=== PATIENT | female | born 1960 | race Caucasian/White ===

== ENCOUNTER 2023-02-10 12:29 | Outpatient (OUT) | payer OTHER, SELFPAY ==
--- NOTE | 2023-02-10 12:40 | MR_ITS ---
The [address] [address] Patient Name: JOSELITO CARVER MRN: [id number] date: 1960 Sex: F Assigned Patient Location: MRI Current Patient Location: MRI Accession/Order Number: [id number] Exam Date: 02/10/2023 12:55 Report Date: 02/10/2023 14:16 At the request of: ANALISA FARIA Procedure: MR ankle RT wo con MR ankle RT wo con CLINICAL HISTORY: Right foot and ankle pain. Plantar Fascial Fibromatosis M72.2 COMPARISON: 01/14/2023. 06/02/2022. MR TECHNIQUE: Multiplanar multiecho MRI of the right ankle, hindfoot, midfoot is obtained without IV contrast with axial, sagittal, coronal images. T1 weighted and fluid sensitive images are included. FINDINGS: No fracture or dislocation throughout the [id number]. Talar dome and tibial plafond are intact. Achilles tendon is intact and normal thickness. Ankle flexor, extensor, peroneal tendons are intact. Trace flexor and peroneal tenosynovial fluid. Lateral collateral ligaments and syndesmotic ligaments are intact. Deltoid ligaments are intact. The plantar fascia demonstrates low to intermediate grade partial thickness injury at the calcaneal attachment where there is a small spur. This predominantly involves the medial band. The plantar fascial cc thickness of approximately 7 mm. Slight edema of the adjacent subcutaneous soft tissues. Plantar foot muscles are unremarkable. Sinus Tarsi negative. Minimal degenerative change of the midfoot. Tarsal tunnel is negative. IMPRESSION: Low to intermediate grade chronic partial thickness injury to the right plantar fascial origin especially medially. Associated plantar calcaneal enthesophyte. There is no evidence of plantar fascial fibromatosis. Ankle tendons and ligaments are intact. No fracture. Electronically authenticated by: MERVIN BRONSON Date: 02/10/2023 14:16
== END 2023-02-10 12:30 ==
PROVIDERS: PCP Family Medicine; Visit Provider Physician Assistant
DX: M72.2 Plantar fascial fibromatosis (principal)
CPT/HCPCS: 73721

== ENCOUNTER 2023-02-17 08:36 | Outpatient (OUT) | payer OTHER, SELFPAY ==
--- NOTE | 2023-02-17 08:46 | MM_ITS ---
Patient: JOSELITO CARVER Exam Date: 02/17/2023 : 1960 Gender:F Ordering : DR Tiffanie Duckworth M.D. Admission #: [id number] Family : Order #: [id number] CLICK HERE TO VIEW EXAM RADIOLOGY REPORT PROCEDURE: MM TOMOSYNTHESIS SCREENING BI COMPARISON: MG MAMM SCREEN 3D YOLANDA CAD, 05/09/2021. MG MAMM SCREEN YOLANDA W CAD, 04/12/2019. MG MAMM SCREEN YOLANDA W CAD, 11/24/2017. MG MAMM SCREEN YOLANDA W CAD, 07/01/2009. INDICATIONS: Screening mammogram Z12.31 Calculator Name NCI Breast Cancer Risk Assessment Tool 5 Year Breast Cancer Risk 6.20% Lifetime Breast Cancer Risk 25.30% Personal Breast Cancer No Personal Ovarian Cancer No Treatments None Family Cancers Mother with breast cancer at age 60; Aunt-maternal with breast cancer at age 65; Sister with breast cancer at age 62; Uncle-maternal with breast cancer at age 70; Brother with bladder cancer at age 58; Cousin-maternal with pancreatic cancer at age 70. LOCATION: [facility] BREAST COMPOSITION: Scattered areas fibroglandular density. FINDINGS: DIAGNOSTIC CATEGORY 1--NEGATIVE. RIGHT BREAST: No significant suspicious finding. No significant change has occurred. LEFT BREAST: No significant suspicious finding. No significant change has occurred. RECOMMENDATIONS: ROUTINE MAMMOGRAM AND CLINICAL EVALUATION IN 12 MONTHS. PLEASE NOTE: A NORMAL MAMMOGRAM DOES NOT EXCLUDE THE POSSIBILITY OF BREAST CANCER. A CLINICALLY SUSPICIOUS PALPABLE LUMP SHOULD BE BIOPSIED. Dictated by: Randy Camejo M.D. on 02/17/2023 at 15:05 Approved by: Randy Camejo M.D. on 02/17/2023 at 15:08
== END 2023-02-17 08:37 ==
LOC: MAMMO 08:36
PROVIDERS: PCP Family Medicine; Visit Provider Family Medicine
DX: Z12.31 Encounter for screening mammogram for malignant neoplasm of breast (principal)
CPT/HCPCS: 77063; 77067

== ENCOUNTER 2023-03-11 10:12 | Outpatient (RCR) | payer OTHER, SELFPAY | END 2023-03-18 10:57 | disposition home or self-care (01) | LOC: PT 10:12 | PROVIDERS: PCP Family Medicine; Visit Provider Podiatrist Foot & Ankle Surgery | DX: M24.571 Contracture, right ankle (principal); M72.2 Plantar fascial fibromatosis | CPT/HCPCS: 20561; 97110; 97161 ==

== ENCOUNTER 2023-07-26 09:50 | Outpatient (OUT) | payer OTHER, SELFPAY ==
--- NOTE | 2023-07-26 10:06 | XR_ITS ---
[address] [address] Patient Name: JOSELITO CARVER MRN: [id number] date: 1960 Sex: F Assigned Patient Location: [facility] Current Patient Location: [facility] Accession/Order Number: [id number] Exam Date: 07/26/2023 10:50 Report Date: 07/26/2023 12:01 At the request of: MARISA BRENNAN Procedure: XR DEXA axial skeleton EXAMINATION: XR DEXA axial skeleton HISTORY: Osteoporosis M81.0 COMPARISON: DEXA bone densitometry 05/09/2021 TECHNIQUE: Dual-energy X-ray absorptiometry (DXA) was performed. FINDINGS: SPINE ANALYSIS: Average bone mineral density is 1.061 g/cm2. T-score (standard deviation relative to young adult mean): -1.0 . -10.1% change since prior study. HIP ANALYSIS: Lowest bone mineral density is within the left femoral trochanter, 0.488 g/cm2. T-score (standard deviation relative to young adult mean): -3.2 . +8.4% change since prior study. XR/XR DEXA axial skeleton IMPRESSION: [employer] Classification: Osteoporosis - High Fracture Risk Electronically authenticated by: HOMERO DONALDSON Date: 07/26/2023 12:01
--- OUTSIDE RECORDS SUMMARY | 2023-08-18 00:04 | XMS_ITS | CCD ---
Author Name Unknown Address [address] [place] [address] Organization [facility] Care Team Providers Care Mold Filler Name Role Phone Unavailable Primary Care Provider ANALISA Peck Admitting Unavailable ANALISA FARIA Attending Unavailable JOHNSON, DR TIFFANIE Perez Primary Care Unavailable BIENVENIDO, ANALISA Admitting Unavailable ANALISA FARIA Attending Unavailable JOHNSON, DR TIFFANIE Perez Primary Care Unavailable ANIKA, DR HOMERO Denton Consulting Unavailable BIENVENIDO, ANALISA Consulting Unavailable HAKIM, DR BENNETT Admitting Unavailable HAKIM, DR BENNETT Attending Unavailable JOHNSON, DR TIFFANIE Perez Primary Care Unavailable HALADAY, DR CUNNINGHAM Consulting Unavailable JOHNSON, DR TIFFANIE Perez Admitting Unavailable JOHNSON, DR TIFFANIE Perez Attending Unavailable JOHNSON, DR TIFFANIE Perez Primary Care Unavailable JOHNSON, DR TIFFANIE Perez Consulting Unavailable JOHNSON, DR TIFFANIE Perez Admitting Unavailable JOHNSON, DR TIFFANIE Perez Attending Unavailable JOHNSON, DR TIFFANIE Perez Primary Care Unavailable JOHNSON, DR TIFFANIE Perez Consulting Unavailable GARRISON LEE Attending Unavailable ROSA, GARRISON Attending Unavailable GARRISON LEE Referring Unavailable Unavailable Primary Care Provider UnavailTiffanie Silverio Unavailable Allergies Allergy Classification Reported Allergen(s) Allergy Type Date of Onset Reaction(s) Facility (2 sources) Non-steroidal anti-inflammato ry agent; Translations: [NSAIDS (NON-STEROIDAL ANTI-INFLAMMATO RY DRUG)] Drug Intolerance 09-13-19 Other: See Comments [facility] Work Phone: (2 sources) Non-steroidal anti-inflammato ry agent Drug Intolerance 09-13-19 Other: See Comments [facility] Work Phone: (2 sources) patient allergy list reviewed by nurse or physicia Propensity to adverse reactions 07-23-20 19 Comment:Done [employer] Other (2 sources) Allergies Reconciled Propensity to adverse reactions Unknown [employer] Other Medications Current Medications Medication Drug Class(es) Dates Sig (Normalized) Sig (Original) denosumab (2 sources) RANK Ligand Inhibitor Start: 07-28-2022 Prolia 60MG/ML Prolia( 60MG/ML Subcutaneous ) Active -Hx Entry Subcutaneous for 0 Dr. Gallagher *Pick strength-form from [employer] for eRX* Jun, Active Estradiol (5 sources) Estrogen Start: 08-07-2022 Estrace 0.01% (0.1 mg/ Estrace 0.01% (0.1 mg/, (one half) Gram pv twice weekly # 43, 08/07/2022, Ref. x2. Active vaginal pv twice weekly for 0 *Pick strength-form from [employer] for eRX* Jul, Active Start: 06-09-2018 estradiol (EST RACE) 0.01 % (0.1 mg/gram) vaginal cream Use 1 g vaginally twice a week. 3 06/09/2018 Active Comment on above: Use 1 g vaginally tw ice a week. Lidocaine-Glycerin 2% (2 sources) Start: 06-30-2022 Lidocaine-Glyc karin 2% lidocaine-glycerin 2%, 1 (one) kit as needed # 1, 06/30/2022, Ref. x3. Active mucous membrane as needed for 0 alternative to lidocaine 2% gel...? *Reorder from [employer] for eRx and Interaction Alerts* Jun, Active Completed/Discontinued Medications Medication Drug Class(es) Dates Sig (Normalized) Sig (Original) alendronic acid 70 mg oral tablet (3 sources) Bisphosphonate Start: 07-11-2018 take 1 tablet by mouth every week alendronate (FOSAMAX) 70 mg tablet Take 70 mg by mouth once each week. 4 07/11/2018 Active Comment on above: Take 70 mg by mouth once each week. Ascorbic Acid (3 sources) Vitamin C ascorbic acid (V ITAMIN C ORAL) Take by mouth. 0 Active Comment on above: Take by mouth. atorvastatin 10 mg oral tablet (3 sources) HMG-CoA Reductase Inhibitor Start: 07-19-2018 take 1 tablet by mouth once daily atorvastatin (LIPITOR) 10 mg tablet Take 10 mg by mouth once daily. 2 07/19/2018 Active Comment on above: Take 10 mg by mouth once daily. baclofen 10 mg oral tablet (3 sources) gamma-Aminobutyric Acid-ergic Agonist Start: 07-22-2018 baclofen (LIORESAL) 10 mg tablet Take 10 mg by mouth as needed. 4 07/22/2018 Active Comment on above: Take 10 mg by mouth as needed. caffeine 175 mg oral tablet (3 sources) Central Nervous System Stimulant, Methylxanthine CAFFEINE ORAL Take 175 mg by mouth. 0 Active Comment on above: Take 175 mg by mouth . calcium citrate/vitamin D3 ( CITRACAL + D ORAL) (3 sources) calcium citrate/ vitamin D3 (CITRACAL + D ORAL) Take by mouth. 0 Active Comment on above: Take by mouth. citalopram 40 mg oral tablet (5 sources) Serotonin Reuptake Inhibitor Start: 07-02-2018 take 1 tablet by mouth once daily citalopram (CELEXA) 40 mg tablet Take 40 mg by mouth once daily. 4 07/02/2018 Active Comment on above: Take 40 mg by mouth once daily. cyanocobalamin, vitamin B-12 , (VITAMIN B-12 ORAL) (3 sources) cyanocobalamin, vitamin B-12, (VITAMIN B-12 ORAL) Take by mouth. 0 Active Comment on above: Take by mouth. flaxseed oil (OMEGA 3 ORAL) (3 sources) flaxseed oil (OM EGA 3 ORAL) Take by mouth. 0 Active Comment on above: Take by mouth. glucosamine/chondr spears A sod (OSTEO BI-FLEX ORAL) (3 sources) glucosamine/sandra dr spears A sod (OSTEO BI-FLEX ORAL) Take by mouth. 0 Active Comment on above: Take by mouth. 10 ml lidocaine hydrochloride 10 mg/ml injection (3 sources) Antiarrhythmic, Amide Local Anesthetic Start: 03-03-2023 End: 03-03-2023 lidocaine (PF) 10 mg/mL (1 %) 4 mL injection (XYLOCAINE) Start: 06-09-2022 End: 06-09-2022 lidocaine (PF) 20 mg/mL (2 % ) 4 mL injection (XYLOCAINE) Start: 12-01-2021 End: 12-01-2021 lidocaine (PF) 10 mg/mL (1 % ) 4 mL injection (XYLOCAINE) Magnesium (3 sources) Magnesium 250 mg tab Take 250 mg by mouth. 0 Active Comment on above: Take 250 mg by mouth . meloxicam 15 mg oral tablet (2 sources) Nonsteroidal Anti-inflammatory Drug take 1 tablet by mouth once daily meloxicam (MOBIC) 15 mg tablet Take 15 mg by mouth once daily. 0 Active Comment on above: Take 15 mg by mouth once daily. MULTIVITAMIN ORAL (3 sources) MULTIVITAMIN ORA L Take by mouth. 0 Active Comment on above: Take by mouth. raNITIdine 150 mg oral tablet (3 sources) Histamine-2 Receptor Antagonist Start: 07-02-2018 take 1 tablet by mouth twice daily ranitidine (ZANTAC) 150 mg tablet Take 150 mg by mouth twice daily. 4 07/02/2018 Active Comment on above: Take 150 mg by mouth twice daily. 1 ml triamcinolone acetonide 40 mg/ml injection (3 sources) Corticosteroid Start: 03-03-2023 End: 03-03-2023 triamcinolone acetonide 40 mg injection (KeNALog 40) Start: 06-09-2022 End: 06-09-2022 triamcinolone acetonide 40 m g injection (KeNALog 40) Start: 12-01-2021 End: 12-01-2021 triamcinolone acetonide 40 m g injection (KENALOG 40) Problems Active Problems Problem Classification Problem Date Documented Date Episodic/Chronic Disorders of lipid metabolism (2 sources) Hyperlipidemia; Translations: [Hyperlipidemia, unspecified] Chronic Esophageal disorders (2 sources) Gastroesophageal reflux disease; Translations: [Gastro-esophageal reflux disease without esophagitis] Chronic Mycoses (2 sources) Onychomycosis; Translations: [Tinea unguium] Episodic Osteoarthritis (4 sources) Osteoarthritis of left knee joint; Translations: [Unilateral primary osteoarthritis, left knee] Onset: 06-09-2022 Chronic Osteoporosis (6 sources) Age-related osteoporosis without current pathological fracture; Translations: [Osteoporosis] Onset: 12-02-2022 Chronic Other aftercare (1 source) Other [place] [facility] (current) drug therapy; Translations: [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] Onset: 12-11-2022 Episodic Other connective tissue disease (2 sources) Muscle pain; Translations: [Myalgia, unspecified site] Episodic Spondylosis; intervertebral disc disorders; other back problems (1 source) Cervicalgia Episodic Unclassified (4 sources) Encounter for health counseling related to travel; Translations: [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] Onset: 02-07-2022 Unclassified (1 source) CONTACT W/AND (SUSP) EXPOS COVID-19; Translations: [CONTACT W/AND (SUSP) EXPOS COVID-19] Onset: 02-10-2022 Past or Other Problems Problem Classification Problem Date Documented Da te Episodic/Chronic Other connective tissue disease (4 sources) Pain in right foot; Translations: [PAIN IN RIGHT FOOT] Onset: 06-02-2022 Episodic Other connective tissue disease (1 source) Myalgia, unspecified site; Translations: [MYALGIA UNSPECIFIED SITE] Onset: 05-19-2022 Episodic Other non-traumatic joint disorders (1 source) Pain in right ankle and joints of right foot; Translations: [PAIN IN RIGHT ANKLE] Onset: 06-05-2022 Episodic Unclassified (2 sources) Low back pain with radiation; Translations: [Low back pain with radiation] Results Test Name Value Interpretation Reference Range Facil ity CARMENOVon 03-03-2023 CNOV Office Visit (LOORRM ) JOSELITO CARVER ([id number]) 1960 F Date Time Provider Department 03/03/23 10:15 AM GARRISON LEE During your visit today, we recorded the following information about you: Garrison Lee PA-C 03/03/2023 10:43 AM Signed This document has been created with the use of voice recognition technology. It may contain inaccuracies: misspellings, inaccurate syntax or word sense that escaped review. CHIEF COMPLAINT: Joselito Carver is a 62 year old female who presents today for follow up of left knee. HISTORY OF PRESENT ILLNESS: PAIN EVALUATION 03/01/2023 1105 Pain Level: 5 Pain Location: Knee-Left Description: Aching;Stiffness Frequency: Intermittent Intervention/Comfort measure: Medication;Reposition;Cold HISTORY: Joselito Carver is here for follow up of complaints of recurrent left knee pain with additional symptoms of posterior knee pain. She states she has also been dealing with plantar fasciitis of the right foot and doing physical therapy for that. She remains very active and does long distance [place] races. These activities seem to flareup the knee. She has noticed some swelling in the knee after his activities. No specific injuries. No hip pain or neurologic symptoms. No other musculoskeletal complaints ROS: REVIEW OF SYSTEMS: Constitutional: patient denies any recent fever or significant change in weight Cardiovascular: patient denies any chest pain at rest Respiratory: patient denies any shortness of breath or cough Gastrointestinal: patient denies any current abdominal discomfort Integumentary: patient denies any recent skin changes Musculoskeletal: as noted in the HPI Neurologic: patient denies any peripheral numbness or radiation of pain Endocrine: patient denies a current diagnosis of diabetes Hematologic/Lymphatic: patient denies any easily bleeding, any recent infection and denies any recent observable lymph node enlargement Psychologic: negative for any recent depression or anxiety issues SOCIAL HISTORY: Tobacco Use: Not on file FAMILY HISTORY: No family history on file. ALLERGIES: ALLERGIES Allergen Reactions Nsaids (Non-Steroid* Other: See Comments Cannot take NSAIDS due to kidney disease PAST MEDICAL HISTORY: PAST MEDICAL HISTORY Diagnosis Date Depression Kidney disease SOCIAL HISTORY: Tobacco Use: Not on file EXAMINATION: GENERAL: Appears healthy, well-nourished, no deformities. ORIENTATION: Alert and oriented to person place and time HABITUS: Normal GAIT: Normal, the patient did not have trouble getting onto the exam table. left knee exam: small effusion Neutral Alignment Active lacks a few degrees extension, flexion 120. central patellar tracking/ no patellofemoral crepitation No Pain with patellar compression, positive Pain with palpating medial compartment, no Pain with palpating lateral compartment. stable to varus and valgus stresses. stable Anterior/posterior drawer. negative Mc[place]rays No pain with palpation of pes anserine bursa Calf soft and nontender. Hip exam- negative log roll, preserved ER/IR, no pain with axial loading NV intact L3-S1 with 2+ DP pulse. RADIOGRAPHS: none IMPRESSION: Encounter Diagnosis ICD-10-CM 1. Primary osteoarthritis of left knee M17.12 Large Joint Arthro/Inj: L knee joint Informed Consent Consent Obtained: Written [place] Protocol A moment to CARE was completed. SIGN IN Personnel directly involved with the procedure wore the appropriate PPE. Special Equipment: Yes Patient/Surrogate Stated/Verified: Patient name, Date of , Relevant allergies and Intended procedure TIME OUT Intended patient and procedure match the source document(s). Consent documented and matches the intended procedure. Relevant labs, photos, and/or imaging studies have been reviewed. Correct side/site marked and visible. Medications required for procedure verified. No fire risk assessment and interventions applicable. No implant(s) inserted. 03/03/2023 10:40 AM The procedure site was prepped in the usual sterile fashion. Site: L knee joint Medications: 40 mg triamcinolone acetonide 40 mg/mL Anesthetics: 4 mL lidocaine (PF) 10 mg/mL (1 %) Outcome: Tolerated well, no immediate complications Post-injection instructions were reviewed with the patient and the patient voiced understanding of these instructions. SIGN OUT All instruments, equipment, possible retained foreign bodies accounted for. Plan: Follow-up of left knee with arthritis flare. We performed a cortisone injection in the knee to help her get through her upcoming race. We will follow-up as symptoms dictate. Garrison Lee PA-C Allergies As of Date: 03/03/2023 Noted Allergy Reaction NSAIDS (NON-STEROIDAL ANTI-INFLAM*09/13/2018 14 - Other: See Comments Comments: Cannot take NSAIDS due to kidney diseas (more content not included)... Normal [facility] PTH INTACTon 12-03-2022 PTH, Intact 25 pg/mL Normal 15-65 [facility] Comment on above: Performed By: #### P THINT #### [facility] [address] [place], [place] [address] Dr. Noris Duenas MAGNESIUMon 12-02-2022 Magnesium [Mass/Vol] 2.0 mg/dL Normal 1.8-2.4 [facility] Comment on above: Performed By: #### P HOS, MG, BMP ####[facility] [address] [place], [place] [address]FiDr. Noris Duenas PHOSPHORUSon 12-02-2022 Phosphate [Mass/Vol] 3.5 mg/dL Normal 2.6-4.7 [facility] Comment on above: Performed By: #### P HOS, MG, BMP ####[facility] [address] [place] [address]Dr. Nrois Duenas PROF CHEM 8 (BAS METB)on Anion gap [Moles/Vol] 12.0 mmol/L Normal Th [facility] Comment on above: Performed By: #### P HOS, MG, BMP #### [facility] [address] [place] [address] [address] Noris Duenas Calcium [Mass/Vol] 9.4 mg/dL Normal 8.5-10.1 [facility] Comment on above: Performed By: #### P HOS, MG, BMP #### [facility] [address] [place] [address] [address] Noris Duenas Chloride [Moles/Vol] 103 mmol/L Normal 98-107 [facility] Comment on above: Performed By: #### P HOS, MG, BMP #### [facility] [address] [place] [address] Dr. Noris Duenas CO2 [Moles/Vol] 29.0 mmol/L Normal 21.0-32.0 [facility] Comment on above: Performed By: #### P HOS, MG, BMP #### [facility] [address] [place] [address] Dr. Noris Duenas Creatinine [Mass/Vol] 0.70 mg/dL Normal 0.55-1.02 [facility] Comment on above: Performed By: #### P HOS, MG, BMP #### [facility] [address] [place] [address] Dr. Noris Duenas EGFR-AF BHUTANESE >60 Normal >=60 [facility] Comment on above: Performed By: #### P HOS, MG, BMP #### [facility] [address] [place] [address] Dr. Noris Duenas EGFR-NON AF BHUTANESE >60 Normal >=60 [facility] Comment on above: Performed By: #### P HOS, MG, BMP #### [facility] [address] [place] [address] Dr. Noris Duenas Glucose [Mass/Vol] 95 mg/dL Normal 74-106 [facility] Comment on above: Performed By: #### P HOS, MG, BMP #### [facility] [address] [place] [address] Dr. Noris Duenas Potassium [Moles/Vol] 4.0 mmol/L Normal 3.5-5.1 [facility] Comment on above: Performed By: #### P HOS, MG, BMP #### [facility] [address] [place] [address] Dr. Noris Duenas Sodium [Moles/Vol] 140 mmol/L Normal 136-145 [facility] Comment on above: Performed By: #### P HOS, MG, BMP #### [facility] [address] [place] [address] Dr. Noris Duenas Urea nitrogen [Mass/Vol] 17.0 mg/dL Normal 7.0-18.0 [facility] Comment on above: Performed By: #### P HOS, MG, BMP #### [facility] [address] [place] [address] Dr. Noris Duenas Urea nitrogen/Creatinine [Mass ratio] 24.3 mg/mg Normal [facility] Comment on above: Performed By: #### P HOS, MG, BMP #### [facility] [address] [place] [address] Dr. Noris Duenas VITAMIN D 25 OHon 12-02-2022 VIT D 25-OH 76.9 ng/mL Normal [facility] Comment on above: Performed By: #### V ITAD #### [facility] [address] [place] [address] Dr. Noris Duenas VIT D RANGES SEE BELOW Normal [facility] Comment on above: Result Comment: <20 ng/mL Vit D deficient 20 - <30 ng/mL Vit D insufficient 30 - 100 ng/mL Vit D sufficient >100 ng/mL Potential Toxicity Performed By: #### V ITAD #### [facility] [address] [place] [address] Dr. Noris Duenas CNOVon 06-09-2022 CNOV Office Visit (LOORRM ) JOSELITO CARVER ([id number]) 1960 F Date Time Provider Department 06/09/22 11:30 AM GARRISON LEE During your visit today, we recorded the following information about you: Garrison Lee PA-C 06/09/2022 11:59 AM Signed This document has been created with the use of voice recognition technology. It may contain inaccuracies: misspellings, inaccurate syntax or word sense that escaped review. CHIEF COMPLAINT: Joselito Carver is a 61 year old female who presents today for follow up of left knee pain. HISTORY OF PRESENT ILLNESS: PAIN EVALUATION 06/09/2022 1137 Pain Level: 7 Pain Location: Knee-Left Description: Dull;Aching Duration Amount of Time: 2 Duration Units: Weeks Frequency: Continuous Intervention/Comfort measure: Medication;Cold HISTORY: Joselito Carver is here for follow up of complaints of left knee pain with history of osteoarthritis. She states the injection that she received 6 months ago provided her with significant relief. Just a few weeks ago she was hiking on uneven ground and reaggravated the knee. She is back in hopes to receive a repeat cortisone injection. She is on meloxicam for pain. Denies radiation of symptoms or paresthesias. No other musculoskeletal complaints ROS: REVIEW OF SYMPTOMS: Constitutional: patient denies any recent fever or significant change in weight Gastrointestinal: patient denies any current abdominal discomfort Musculoskeletal: as noted in the HPI Neurologic: patient denies any peripheral numbness or radiation of pain SOCIAL HISTORY: Tobacco Use: Not on file ALLERGIES: ALLERGIES Allergen Reactions - Nsaids (Non-Steroid* Other: See Comments Cannot take NSAIDS due to kidney disease PAST MEDICAL HISTORY: PAST MEDICAL HISTORY Diagnosis Date - Depression - Kidney disease SOCIAL HISTORY: Tobacco Use: Not on file EXAMINATION: GENERAL: Appears healthy, well-nourished, no deformities. ORIENTATION: Alert and oriented to person place and time HABITUS: Normal GAIT: Normal, the patient did not have trouble getting onto the exam table. left knee exam no effusion, no bakers cyst stable with patellar apprehension varus Alignment Active 0 extension, flexion 120. Good patellar tracking/ moderate-severe patella femoral crepitation Pain with palpating medial compartment, Pain with palpating lateral compartment. stable to varus and valgus stresses. Carline is some laxity Laxity to Anterior drawer. No pain with palpation of pes anserine bursa 2+ Dorsalis pedis pulse Calf soft and nontender. Hip exam wnl Intact sensation to light touch distally. RADIOGRAPHS: XR Obtained today and personally reviewed by myself demonstrating interval progression of medial compartment OA and patellofemoral degenerative changes IMPRESSION: Encounter Diagnosis ICD-10-CM 1. Primary osteoarthritis of left knee M17.12 XR KNEE GENERAL 4V AP BOTH/PA BOTH/LAT/MERC LEFT Large Joint Arthro/Inj: L knee joint Informed Consent Consent Obtained: Written [place] Protocol A moment to CARE was completed. SIGN IN Personnel directly involved with the procedure wore the appropriate PPE. Special Equipment: Yes Patient/Surrogate Stated/Verified: Patient name, Date of , Relevant allergies and Intended procedure TIME OUT Intended patient and procedure match the source document(s). Consent documented and matches the intended procedure. Relevant labs, photos, and/or imaging studies have been reviewed. Correct side/site marked and visible. Medications required for procedure verified. No fire risk assessment and interventions applicable. No implant(s) inserted. 06/09/2022 11:58 AM The procedure site was prepped in the usual sterile fashion. Site: L knee joint Medications: 40 mg triamcinolone acetonide 40 mg/mL Anesthetics: 4 mL lidocaine (PF) 20 mg/mL (2 %) Outcome: Tolerated well, no immediate complications Post-injection instructions were reviewed with the patient and the patient voiced understanding of these instructions. SIGN OUT No specimen collected. All instruments, equipment, possible retained foreign bodies accounted for. Post-procedure follow-up management communicated and Plan of Care Visit completed when applicable Plan: Patient presents for follow-up of left knee pain with osteoarthritis being the impression. We reinjected the knee with cortisone today and she tolerated it well. She understands appropriate intervals between injections. She will follow-up as needed Garrison Lee PA-C Referring Provider: SELF [[id number]] Allergies As of Date: 06/09/2022 Noted Allergy Reaction NSAIDS (NON-STEROIDAL ANTI-INFLAM*09/13/2018 14 - Other: See Comments Comments: Cannot take NSAIDS due to kidney disease Date Reviewed: 06/09/2022 Reviewed by: Garrison Lee PA-C - Fully Assessed Reas (more content not included)... Normal [facility] XR KNEE 4V AP/PA BOTH+LAT/ME R LTon 06-09-2022 XR KNEE 4V AP/PA BOTH+LAT/JESS LT * * *Final Report* * * DATE OF EXAM: Jun 09 2022 12:14PM LZX [id number] - XR KNEE 4V AP/PA BOTH+LAT/JESS LT / PROCEDURE REASON: Primary osteoarthritis of left knee * * * * Physician Interpretation * * * * EXAMINATION: XR KNEE 4V AP/PA BOTH+LAT/JESS LT HISTORY: ARTHRITIS LEFT KNEE / PAIN Primary osteoarthritis of left knee . TECHNIQUE: XR KNEE 4V AP/PA BOTH+LAT/JESS LT Laterality: LEFT Number of different views (projections): 4 M: XB_1 COMPARISON: 01/21/2021 RESULT: Mild to moderate medial joint compartment narrowing with tricompartmental osteophytosis. Mild narrowing of the lateral patellofemoral joint compartment. Small knee joint effusion. No other significant abnormality. IMPRESSION: Left knee osteoarthritis as described. Concrete Foreman: MARKEL Transcribe Date/Time: Jun 09 2022 1:58P Dictated by : HEBER CAMACHO MD This examination was interpreted and the report reviewed and electronically signed by: HEBER CAMACHO MD on Jun 09 2022 1:58PM EST [id number] Normal [facility] XR KNEE GENERAL 4V AP BOTH/P A BOTH/LAT/MERC LEFTon 06-09-2022 [facility] ic CBC AUTO DIFFon 05-18-2022 BASO # 0.0 103/ul Normal 0.0-0.1 [facility] Comment on above: Performed By: #### C BC #### [facility] [address] [place] [address] Dr. Noris Duenas Basophils/100 WBC (Bld) 0.8 % Normal 0.2-2.0 [facility] Comment on above: Performed By: #### C BC #### [facility] [address] [place] [address] Dr. Noris Duenas EO # 0.2 103/ul Normal 0.0-0.7 [facility] Comment on above: Performed By: #### C BC #### [facility] [address] [place] [address] Dr. Noris Duenas Eosinophils/100 WBC (Bld) 3.8 % Normal 0.9-7.0 [facility] Comment on above: Performed By: #### C BC #### [facility] [address] [place] [address] Dr. Noris Duenas Erythrocyte distribution wid th (RBC) [Ratio] 13.2 % Normal 11.0-15.0 [facility] Comment on above: Performed By: #### C BC #### [facility] [address] [place] [address] Dr. Noris Duenas Hematocrit (Bld) [Volume fraction] 41.2 % Normal 3 6.0-48.0 [facility] Comment on above: Performed By: #### C BC #### [facility] [address] [place] [address] Dr. Noris Duenas Hemoglobin (Bld) [Mass/Vol] 13.2 g/dL Normal 12.0-16. 0 [facility] Comment on above: Performed By: #### C BC #### [facility] [address] [place] [address] Dr. Noris Duenas IG # 0.01 10e3/ul Normal 0.00-0.03 [facility] Comment on above: Performed By: #### C BC #### [facility] [address] [place] [address] Dr. Noris Duenas IG % 0.2 % Normal 0.0-0.5 [facility] Comment on above: Performed By: #### C BC #### [facility] [address] [place] [address] Dr. Noris Duenas LYMPH # 1.7 103/ul Normal 1.2-3.8 [facility] Comment on above: Performed By: #### C BC #### [facility] [address] [place] [address] Dr. Noris Duenas Lymphocytes/100 WBC (Bld) 35.0 % Normal 20.5-60.0 [facility] Comment on above: Performed By: #### C BC #### [facility] [address] [place] [address] Dr. Noris Duenas MANUAL DIFF REQ NO Normal [facility] Comment on above: Performed By: #### C BC #### [facility] [address] [address] [address] Noris Duenas MCH (RBC) [Entitic mass] 30.3 pg Normal 26.7-34.0 [facility] Comment on above: Performed By: #### C BC #### [facility] [address] [place] [address] Dr. Noris Duenas MCHC (RBC) [Mass/Vol] 32.0 g/dL Normal 29.9-35.2 [facility] Comment on above: Performed By: #### C BC #### [facility] [address] [place] [address] Dr. Noris Duenas MCV (RBC) [Entitic vol] 94.5 fL Normal 81.0-99.0 [facility] Comment on above: Performed By: #### C BC #### [facility] [address] [place] [address] Dr. Noris Duenas MONO # 0.6 103/ul Normal 0.3-0.8 [facility] Comment on above: Performed By: #### C BC #### [facility] [address] [place] [address] Dr. Noris Duenas Monocytes/100 WBC (Bld) 13.4 % Critically high 1.7-12. 0 [facility] Comment on above: Performed By: #### C BC #### [facility] [address] [place] [address] Dr. Noris Duenas NEUT # 2.2 103/ul Normal 1.4-6.5 [facility] Comment on above: Performed By: #### C BC #### [facility] [address] [address] [address] Noris Duenas Neutrophils/100 WBC (Bld) 46.8 % Normal 43.0-75.0 [facility] Comment on above: Performed By: #### C BC #### [facility] [address] [address] [address] Noris Duenas Platelet mean volume (Bld) [ Entitic vol] 10.7 fL Normal 9.5-13.5 [facility] Comment on above: Performed By: #### C BC #### [facility] [address] [place] [address] Dr. Noris Duenas PLT 237 103/ul Normal 150-450 [facility] Comment on above: Performed By: #### C BC #### [facility] [address] [place] [address] Dr. Noris Duenas RBC 4.36 106/ul Normal 4.20-5.40 [facility] Comment on above: Performed By: #### C BC #### [facility] [address] [place] [address] Dr. Noris Duenas WBC 4.8 103/ul Normal 4.0-11.0 [facility] Comment on above: Performed By: #### C BC #### [facility] [address] [place] [address] Dr. Noris Duenas CRPon 05-18-2022 CRP [Mass/Vol] mg/L Normal <=1.0 [facility] Comment on above: Performed By: #### C MP, LIPID, CRP #### [facility] [address] [place] [address] Dr. Noris Duenas LIPID PROFILEon 05-18-2022 CHOL-HDL RATIO NORM SEE BELOW Normal [facility] Comment on above: Result Comment: 3.3 - 4.4 LOW RISK 4.4 - 7.1 AVERAGE RISK 7.1 - 11.0 MODERATE RISK >11.0 HIGH RISK Performed By: #### C MP, LIPID, CRP #### [facility] [address] [address] [address] Noris Duenas Cholesterol [Mass/Vol] 193 mg/dL Normal <=200 Th [facility] Comment on above: Performed By: #### C MP, LIPID, CRP #### [facility] [address] [address] [address] Noris Duenas Cholesterol in HDL [Mass/Vol] 56 mg/dL Normal 40-60 [facility] Comment on above: Performed By: #### C MP, LIPID, CRP #### [facility] [address] [address] [address] Noris Duenas Cholesterol in LDL [Mass/Vol] 105.6 mg/dL Normal [facility] Comment on above: Performed By: #### C MP, LIPID, CRP #### [facility] [address] [address] [address] Noris Duenas Cholesterol.total/Cholestero l in HDL [Mass ratio] 3.4 {ratio} Normal [facility] Comment on above: Performed By: #### C MP, LIPID, CRP #### [facility] [address] [address] [address] Noris Duenas HDL NORMAL > or = 60 mg/dl - LO W CARDIOVASCULAR RISK <40 mg/dl - HIGH CARDIOVASCULAR RISK Normal [facility] Comment on above: Performed By: #### C MP, LIPID, CRP #### [facility] [address] [address] [address] Noris Duenas LDL CALC NORMAL SEE BELOW Normal [facility] Comment on above: Result Comment: <100 mg/dl OPTIMAL 100 - 129 mg/dl NEAR OR ABOVE OPTIMAL 130 - 159 mg/dl BORDERLINE HIGH 160 - 189 mg/dl HIGH >190 mg/dl VERY HIGH Performed By: #### C MP, LIPID, CRP #### [facility] [address] [address] [address] Noris Duenas Triglyceride [Mass/Vol] 157 mg/dL Critically high <=150 [facility] Comment on above: Performed By: #### C MP, LIPID, CRP #### [facility] [address] [address] [address] Noris Duenas VLDL CALC 31.4 mg/dL Normal [facility] Comment on above: Performed By: #### C MP, LIPID, CRP #### [facility] [address] [address] [address] Noris Duenas PROF 14(COMP METB)on 022 Albumin [Mass/Vol] 3.7 g/dL Normal 3.4-5.0 [facility] Comment on above: Performed By: #### C MP, LIPID, CRP #### [facility] [address] [address] [address] Noris Duenas Albumin/Globulin [Mass ratio] 1.0 {ratio} Normal [facility] Comment on above: Performed By: #### C MP, LIPID, CRP #### [facility] [address] [place] [address] Dr. Noris Duenas ALP [Catalytic activity/Vol] 60 U/L Normal 46-116 [facility] Comment on above: Performed By: #### C MP, LIPID, CRP #### [facility] [address] [place] [address] Dr. Noris Duenas ALT [Catalytic activity/Vol] 30 U/L Normal 14-59 [facility] Comment on above: Performed By: #### C MP, LIPID, CRP #### [facility] [address] [place] [address] Dr. Noris Duenas Anion gap [Moles/Vol] 10.4 mmol/L Normal [facility] Comment on above: Performed By: #### C MP, LIPID, CRP #### [facility] [address] [place] [address] Dr. Noris Duenas AST [Catalytic activity/Vol] 23 U/L Normal 15-37 [facility] Comment on above: Performed By: #### C MP, LIPID, CRP #### [facility] [address] [place] [address] Dr. Noris Duenas Bilirubin [Mass/Vol] 0.3 mg/dL Normal 0.2-1.0 [facility] Comment on above: Performed By: #### C MP, LIPID, CRP #### [facility] [address] [address] [address] Noris Duenas Calcium [Mass/Vol] 9.4 mg/dL Normal 8.5-10.1 [facility] Comment on above: Performed By: #### C MP, LIPID, CRP #### [facility] [address] [address] [address] Noris Duenas Chloride [Moles/Vol] 103 mmol/L Normal 98-107 [facility] Comment on above: Performed By: #### C MP, LIPID, CRP #### [facility] [address] [address] [address] Nrois Duenas CO2 [Moles/Vol] 27.7 mmol/L Normal 21.0-32.0 [facility] Comment on above: Performed By: #### C MP, LIPID, CRP #### [facility] [address] [place] [address] Dr. Noris Duenas Creatinine [Mass/Vol] 0.91 mg/dL Normal 0.55-1.02 [facility] Comment on above: Performed By: #### C MP, LIPID, CRP #### [facility] [address] [address] [address] Noris Duenas EGFR-AF BHUTANESE >60 Normal >=60 [facility] Comment on above: Performed By: #### C MP, LIPID, CRP #### [facility] [address] [place] [address] Dr. Noris Duenas EGFR-NON AF BHUTANESE >60 Normal >=60 [facility] Comment on above: Performed By: #### C MP, LIPID, CRP #### [facility] [address] [address] [address] Noris Duenas Globulin (S) [Mass/Vol] 3.7 g/dL Normal [facility] Comment on above: Performed By: #### C MP, LIPID, CRP #### [facility] [address] [address] [address] Noris Duenas Glucose [Mass/Vol] 101 mg/dL Normal 74-106 [facility] Comment on above: Performed By: #### C MP, LIPID, CRP #### [facility] [address] [address] [address] Noris Duenas Potassium [Moles/Vol] 4.1 mmol/L Normal 3.5-5.1 [facility] Comment on above: Performed By: #### C MP, LIPID, CRP #### [facility] [address] [address] [address] Noris Duenas Protein [Mass/Vol] 7.4 g/dL Normal 6.4-8.2 [facility] Comment on above: Performed By: #### C MP, LIPID, CRP #### [facility] [address] [address] [address] Noris Duenas Sodium [Moles/Vol] 137 mmol/L Normal 136-145 [facility] Comment on above: Performed By: #### C MP, LIPID, CRP #### [facility] [address] [address] [address] Noris Duenas Urea nitrogen [Mass/Vol] 19.0 mg/dL Critically high 7.0-18 .0 [facility] Comment on above: Performed By: #### C MP, LIPID, CRP #### [facility] [address] [address] [address] Noris Duenas Urea nitrogen/Creatinine [Mass ratio] 20.9 mg/mg Normal [facility] Comment on above: Performed By: #### C MP, LIPID, CRP #### [facility] [address] [address] [address] Noris Duenas SED RATE [facility] 2021 SED RATE 32 mm/hr Critically high <=30 [facility] Comment on above: Performed By: #### S EDR ####[facility] [id number] [address]Dr. Noris Duenas Covid-19 PCR (CVDTBH)on 01-28 SARS-CoV-2 (COVID-19) RNA EUSEBIO+probe Ql (Unsp spec) Not detected Normal NOT DETECTED [facility] Comment on above: Result Comment: This test is not yet approved or cleared by the [place] FDA. When there are no FDA-approved or cleared tests available, and other criteria are met, FDA can make tests available under an emergency access mechanism called an Emergency Use Authorization (EUA). The EUA for this test is supported by the [place] of Health and Human Service's (HHS's) declaration that circumstances exist to justify the emergency use of in vitro diagnostics for the detection and/or diagnosis of the virus that causes COVID-19. This EUA will remain in effect (meaning this test can be used) for the duration of the COVID-19 declaration justifying emergency of IVDs, unless it is terminated or revoked by FDA (after which the test may no longer be used). When diagnostic testing is negative, the possibility of a false negative should be considered in the context of a patient's recent exposures and the presence of clinical signs and symptoms consistent with SARS-CoV-2. Performed By: #### C [facility] #### [facility] [address] [place] [address] Dr. Noris Duenas No Panel Information [facility] Vital Signs Date Time Vital Sign Value Performing Clinician Facility 07-27-2023 09:30-0500 Body height 160.02 cm Tiffanie Johnson Other [facility] Other 07-27-2023 09:30-0500 Body mass index (BMI) [Ratio] 23.95 kg/m2 Tiff[facility] Johnson Other [facility] Other 07-27-2023 09:30-0500 Body weight 61.33 kg Tiffanie Johnson Other [facility] Other 07-27-2023 09:30-0500 Diastolic blood pressure 77 mm[Hg] Tiffanie Johnson Other [facility] Other 07-27-2023 09:30-0500 Systolic blood pressure 130 mm[Hg] [facility] Johnson Other [facility] Other Encounters Encounter Date Encounter Type Care Provider Facility Start: 08-04-2023 End: 08-04-2023 ambulatory Tiffanie Johnson Other [facility] Other Start: 08-04-2023 Telephone encounter Tiffanie Johnson [facility] Start: 07-27-2023 End: 07-27-2023 ambulatory Tiffanie Johnson Other [facility] Other Start: 07-27-2023 Encounter for genera l adult medical examination without abnormal findings Tiffanie Johnson [facility] Start: 07-27-2023 Periodic preventive med est patient 40-64yrs Tiffanie Johnson [facility] Start: 03-03-2023 End: 03-03-2023 ambulatory GARRISON LEE Facility:[facility] Start: 03-03-2023 End: 03-03-2023 Patient encounter procedure Garrison Lee PA-C Work Phone: Orthopaedics Comment on above: Primary osteoarthrit is of left knee (Primary Dx) Start: 01-14-2023 ambulatory ANALISA FARIA Facilit y:[facility] Start: 12-02-2022 End: 12-03-[address] DONALD ORTIZ Facility:[facility] Start: 06-09-2022 End: 06-09-2022 ambulatory GARRISON LEE Facility:[facility] Start: 06-09-2022 End: 06-09-2022 Patient encounter procedure Garrison Lee PA-C Work Phone: Orthopaedics Comment on above: Primary osteoarthrit is of left knee (Primary Dx) Start: 06-02-2022 End: 06-03-2022 ambulatory ANALISA FARIA Facility:[facility] Start: 05-19-2022 Encounter for genera l adult medical examination without abnormal findings DR TIFFANIE JOHNSON [facility] Start: 05-18-2022 End: 05-19-[address] TIFFANIE JOHNSON Facility:[facility] Start: 05-18-2022 End: 05-19-2022 Encounter for general adult medical examination without abnormal findings DR TIFFANIE JOHNSON Facility:[facility] Start: 02-07-2022 End: 02-08-[address] TIFFANIE JOHNSON Facility:[facility] Start: 12-01-2021 End: 12-01-2021 Patient encounter procedure Garrison Lee PA-C Work Phone: Orthopaedics Comment on above: Primary osteoarthrit is of left knee (Primary Dx) Procedures Date Procedure Procedure Detail Performing Clinician Start: 03-03-2023 Arthrocentesis aspir &/inj major jt/bursa w/o us Garrison Lee PA-C Work Phone: Start: 06-09-2022 Arthrocentesis aspir &/inj major jt/bursa w/o us Garrison Lee PA-C Work Phone: Start: 12-01-2021 Arthrocentesis aspir &/inj major jt/bursa w/o us Garrison Lee PA-C Work Phone: Plan of Treatment Date Care Activity Detail Author Start: 04-30-2023 Influenza vaccination INFLUENZA (#1) [facility] Start: 08-30-2022 [facility] Start: 04-30-2022 Influenza vaccination [facility] Start: 08-30-2021 DEPRESSION ASSESSMENT [facility] Start: 2010 SHINGRIX VACCINE (1 of 2) SHINGRIX V ACCINE (1 of 2) [facility] Start: 2005 COLOGUARD (FIT-DNA) COLOGUARD (FIT-D NA) [facility] Start: 2005 Colonoscopy COLONOSCOPY [facility] Start: 2005 COLORECTAL CANCER SCREENING COLORECTAL CANCER SCREENING [facility] Start: [address] COLONOGRAPHY [facility] Start: 2005 DIABETES SCREEN DIABETES SCREEN [facility] Start: 2005 FECAL OCCULT BLOOD FECAL OCCULT BLOO D [facility] Start: 2005 LIPID SCREEN LIPID SCREEN [facility] Start: 2005 SIGMOIDOSCOPY SIGMOIDOSCOPY [facility] Start: 2000 Mammography MAMMOGRAM [facility] Start: 1990 HPV TESTING HPV TESTING [facility] Start: 1981 PAP TESTING PAP TESTING [facility] Start: 1979 Urine microalbumin profile DTAP,TDAP ,TD (1 - Tdap) [facility] Start: 1978 HEPATITIS C SCREENING HEPATITIS C SC LIANE [facility] Start: 1978 HIV SCREENING HIV SCREENING [facility] Start: 1972 Adult depression scr eening assessment DEPRESSION SCREENING [facility] Start: 1965 COVID-19 VACCINE (1) COVID-19 VACCIN E (1) [facility] Start: 01-10-1961 COVID-19 VACCINE (#1) COVID-19 VACCI NE (#1) [facility] Immunizations Immunization Date Immunization Notes Care Provider Sandy romero 10-10-2020 zoster vaccine, live Tiffanie Johnson Other [facility] Other 07-08-2020 influenza virus vaccine, split virus (incl. purified surface antigen) Tiffanie Johnson Other [facility] Other 07-08-2020 zoster vaccine, live Tiffanie Johnson Other [facility] Other Payers Date Payer Category Payer Private Health [facility] [employer] [facility] [employer] P[facility] [id number] 2015-Present [phone] [address] [place] [address] PPO [id number] 2015 Private Health Insurance [employer] [facility] [employer] PPO [id number] 2015-Present [phone] [address] [place] [address] PPO [id number] 1960 Unknown [id number] 1960 Unknown [id number] 1960 Unknown [id number] 1960 Unknown [id number] 1960 Unknown [id number] [facility] [id number] [address] [facility] [id number] Social History Date Type Detail Facility Tobacco smoking status PRIS Tobacco smoking consumption unknown [facility] Start: 1960 Sex Assigned At Not on file C [facility] Start: 11-21-2021 End: 06-09-2022 Exposure to SARS-CoV-2 (event) Not sure [facility] Sex Assigned At Sex Assigned At Bir [facility] Other Clinical Notes 12-01-2021 to 07-27-2023 Note Date & Type Note Facility 07-27-2023 Evaluation note Encounter Date Diagnosis Assessment Notes Jun, Well adult exam (ICD-10 - Z00.00) We have discussed the necessity of following up with PCP regularly as well as specialists, as needed. Discussed F/U with dentistry and optometry at least yearly. Discussed all preventative measures/ cancer screenings as applicable to this patient. Emphasized the importance of a reduced fat, low carb diet to promote heart health and controlled blood sugars. Reviewed social history and ensured patient is safe within the home today. Pt denies any abuse of alcohol, nicotine, caffeine or recreational drugs. I have ensured patient is of stable mental and physical health today. We have discussed appropriate F/U schedule as well as blood work and vaccinations that apply. All questions answered and patient is sent home pleased, without concerns. Lab order hand written. Jun, Cervical pain (ICD-10 - M54.2) Order for PT handwritten [facility] Other 07-05-2023 NoteHNO ID: [id number] Author: Garrison Lee PA-C Service: ? Author Type: Physician [employer] Type: Progress Notes Filed: 03/03/2023 10:43 AM Note Text: This document has been created with the use of voice recognition technology. It may contain inaccuracies: misspellings, inaccurate syntax or word sense that escaped review. CHIEF COMPLAINT: Joselito Carver is a 62 year old female who presents today for follow up of left knee. HISTORY OF PRESENT ILLNESS: PAIN EVALUATION 03/01/2023 1105 Pain Level: 5 Pain Location: Knee-Left Description: Aching;Stiffness Frequency: Intermittent Intervention/Comfort measure: Medication;Reposition;Cold HISTORY: Joselito Carver is here for follow up of complaints of recurrent left knee pain with additional symptoms of posterior knee pain. She states she has also been dealing with plantar fasciitis of the right foot and doing physical therapy for that. She remains very active and does long distance [place] races. These activities seem to flareup the knee. She has noticed some swelling in the knee after his activities. No specific injuries. No hip pain or neurologic symptoms. No other musculoskeletal complaints ROS: REVIEW OF SYSTEMS: Constitutional: patient denies any recent fever or significant change in weight Cardiovascular: patient denies any chest pain at rest Respiratory: patient denies any shortness of breath or cough Gastrointestinal: patient denies any current abdominal discomfort Integumentary: patient denies any recent skin changes Musculoskeletal: as noted in the HPI Neurologic: patient denies any peripheral numbness or radiation of pain Endocrine: patient denies a current diagnosis of diabetes Hematologic/Lymphatic: patient denies any easily bleeding, any recent infection and denies any recent observable lymph node enlargement Psychologic: negative for any recent depression or anxiety issues SOCIAL HISTORY: Tobacco Use: Not on file FAMILY HISTORY: No family history on file. ALLERGIES: ALLERGIES Allergen Reactions Nsaids (Non-Steroid* Other: See Comments Cannot take NSAIDS due to kidney disease PAST MEDICAL HISTORY: PAST MEDICAL HISTORY Diagnosis Date Depression Kidney disease SOCIAL HISTORY: Tobacco Use: Not on file EXAMINATION: GENERAL: Appears healthy, well-nourished, no deformities. ORIENTATION: Alert and oriented to person place and time HABITUS: Normal GAIT: Normal, the patient did not have trouble getting onto the exam table. left knee exam: small effusion Neutral Alignment Active lacks a few degrees extension, flexion 120. central patellar tracking/ no patellofemoral crepitation No Pain with patellar compression, positive Pain with palpating medial compartment, no Pain with palpating lateral compartment. stable to varus and valgus stresses. stable Anterior/posterior drawer. negative [place] No pain with palpation of pes anserine bursa Calf soft and nontender. Hip exam- negative log roll, preserved ER/IR, no pain with axial loading NV intact L3-S1 with 2+ DP pulse. RADIOGRAPHS: none IMPRESSION: Encounter Diagnosis ICD-10-CM 1. Primary osteoarthritis of left knee M17.12 Large Joint Arthro/Inj: L knee joint Informed Consent Consent Obtained: Written [place] Protocol A moment to CARE was completed. SIGN IN Personnel directly involved with the procedure wore the appropriate PPE. Special Equipment: Yes Patient/Surrogate Stated/Verified: Patient name, Date of , Relevant allergies and Intended procedure TIME OUT Intended patient and procedure match the source document(s). Consent documented and matches the intended procedure. Relevant labs, photos, and/or imaging studies have been reviewed. Correct side/site marked and visible. Medications required for procedure verified. No fire risk assessment and interventions applicable. No implant(s) inserted. 03/03/2023 10:40 AM The procedure site was prepped in the usual sterile fashion. Site: L knee joint Medications: 40 mg triamcinolone acetonide 40 mg/mL Anesthetics: 4 mL lidocaine (PF) 10 mg/mL (1 %) Outcome: Tolerated well, no immediate complications Post-injection instructions were reviewed with the patient and the patient voiced understanding of these instructions. SIGN OUT All instruments, equipment, possible retained foreign bodies accounted for. Plan: Follow-up of left knee with arthritis flare. We performed a cortisone injection in the knee to help her get through her upcoming race. We will follow-up as symptoms dictate. [facility] History of Present illness Narrative* Garrison Lee PA-C - 03/03/2023 10:36 AM EDTAssociated Order(s): Large Joint Arthro/Inj: L knee joint Post-Procedure Diagnose(s): Primary osteoarthritis of left knee Images from the original note were not included. This document has been created with the use of voice recognition technology. It may contain inaccuracies: misspellings, inaccurate syntax or word sense that escaped review. CHIEF COMPLAINT: Joselito Carver is a 62 year old female who presents today for follow up of left knee. HISTORY OF PRESENT ILLNESS: PAIN EVALUATION 03/01/2023 1105 Pain Level: 5 Pain Location: Knee-Left Description: Aching;Stiffness Frequency: Intermittent Intervention/Comfort measure: Medication;Reposition;Cold HISTORY: Joselito Carver is here for follow up of complaints of recurrent left knee pain with additional symptoms of posterior knee pain. She states she has also been dealing with plantar fasciitis of the right foot and doing physical therapy for that. She remains very active and does long distance [place] races. These activities seem to flareup the knee. She has noticed some swelling in the knee after his activities. No specific injuries. No hip pain or neurologic symptoms. No other musculoskeletal complaints ROS: REVIEW OF SYSTEMS: Constitutional: patient denies any recent fever or significant change in weight Cardiovascular: patient denies any chest pain at rest Respiratory: patient denies any shortness of breath or cough Gastrointestinal: patient denies any current abdominal discomfort Integumentary: patient denies any recent skin changes Musculoskeletal: as noted in the HPI Neurologic: patient denies any peripheral numbness or radiation of pain Endocrine: patient denies a current diagnosis of diabetes Hematologic/Lymphatic: patient denies any easily bleeding, any recent infection and denies any recent observable lymph node enlargement Psychologic: negative for any recent depression or anxiety issues SOCIAL HISTORY: Tobacco Use: Not on file FAMILY HISTORY: No family history on file. ALLERGIES: ALLERGIES Allergen Reactions Nsaids (Non-Steroid* Other: See Comments Cannot take NSAIDS due to kidney disease PAST MEDICAL HISTORY: PAST MEDICAL HISTORY Diagnosis Date Depression Kidney disease SOCIAL HISTORY: Tobacco Use: Not on file EXAMINATION: GENERAL: Appears healthy, well-nourished, no deformities. ORIENTATION: Alert and oriented to person place and time HABITUS: Normal GAIT: Normal, the patient did not have trouble getting onto the exam table. left knee exam: small effusion Neutral Alignment Active lacks a few degrees extension, flexion 120. central patellar tracking/ no patellofemoral crepitation No Pain with patellar compression, positive Pain with palpating medial compartment, no Pain with palpating lateral compartment. stable to varus and valgus stresses. stable Anterior/posterior drawer. negative [place] No pain with palpation of pes anserine bursa Calf soft and nontender. Hip exam- negative log roll, preserved ER/IR, no pain with axial loading NV intact L3-S1 with 2+ DP pulse. RADIOGRAPHS: none IMPRESSION: Encounter Diagnosis ICD-10-CM 1. Primary osteoarthritis of left knee M17.12 Large Joint Arthro/Inj: L knee joint Informed Consent Consent Obtained: Written [place] Protocol A moment to CARE was completed. SIGN IN Personnel directly involved with the procedure wore the appropriate PPE. Special Equipment: Yes Patient/Surrogate Stated/Verified: Patient name, Date of , Relevant allergies and Intended procedure TIME OUT Intended patient and procedure match the source document(s). Consent documented and matches the intended procedure. Relevant labs, photos, and/or imaging studies have been reviewed. Correct side/site marked and visible. Medications required for procedure verified. No fire risk assessment and interventions applicable. No implant(s) inserted. 03/03/2023 10:40 AM The procedure site was prepped in the usual sterile fashion. Site: L knee joint Medications: 40 mg triamcinolone acetonide 40 mg/mL Anesthetics: 4 mL lidocaine (PF) 10 mg/mL (1 %) Outcome: Tolerated well, no immediate complications Post-injection instructions were reviewed with the patient and the patient voiced understanding of these instructions. SIGN OUT All instruments, equipment, possible retained foreign bodies accounted for. Plan: Follow-up of left knee with arthritis flare. We performed a cortisone injection in the knee to help her get through her upcoming race. We will follow-up as symptoms dictate. Garrison Lee PA-C documented in [facility]22 NoteHNO ID: [id number] Author: Garrison Lee PA-C Service: ? 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 It may contain inaccuracies: misspellings, inaccurate syntax or word sense that escaped review. CHIEF COMPLAINT: Joselito Carver is a 61 year old female who presents today for follow up of left knee pain. HISTORY OF PRESENT ILLNESS: PAIN EVALUATION 06/09/2022 1137 Pain Level: 7 Pain Location: Knee-Left Description: Dull;Aching Duration Amount of Time: 2 Duration Units: Weeks Frequency: Continuous Intervention/Comfort measure: Medication;Cold HISTORY: Joselito Carver is here for follow up of complaints of left knee pain with history of osteoarthritis. She states the injection that she received 6 months ago provided her with significant relief. Just a few weeks ago she was hiking on uneven ground and reaggravated the knee. She is back in hopes to receive a repeat cortisone injection. She is on meloxicam for pain. Denies radiation of symptoms or paresthesias. No other musculoskeletal complaints ROS: REVIEW OF SYMPTOMS: Constitutional: patient denies any recent fever or significant change in weight Gastrointestinal: patient denies any current abdominal discomfort Musculoskeletal: as noted in the HPI Neurologic: patient denies any peripheral numbness or radiation of pain SOCIAL HISTORY: Tobacco Use: Not on file ALLERGIES: ALLERGIES Allergen Reactions - Nsaids (Non-Steroid* Other: See Comments Cannot take NSAIDS due to kidney disease PAST MEDICAL HISTORY: PAST MEDICAL HISTORY Diagnosis Date - Depression - Kidney disease SOCIAL HISTORY: Tobacco Use: Not on file EXAMINATION: GENERAL: Appears healthy, well-nourished, no deformities. ORIENTATION: Alert and oriented to person place and time HABITUS: Normal GAIT: Normal, the patient did not have trouble getting onto the exam table. left knee exam no effusion, no bakers cyst stable with patellar apprehension varus Alignment Active 0 extension, flexion 120. Good patellar tracking/ moderate-severe patella femoral crepitation Pain with palpating medial compartment, Pain with palpating lateral compartment. stable to varus and valgus stresses. Carline is some laxity Laxity to Anterior drawer. No pain with palpation of pes anserine bursa 2+ Dorsalis pedis pulse Calf soft and nontender. Hip exam wnl Intact sensation to light touch distally. RADIOGRAPHS: XR Obtained today and personally reviewed by myself demonstrating interval progression of medial compartment OA and patellofemoral degenerative changes IMPRESSION: Encounter Diagnosis ICD-10-CM 1. Primary osteoarthritis of left knee M17.12 XR KNEE GENERAL 4V AP BOTH/PA BOTH/LAT/MERC LEFT Large Joint Arthro/Inj: L knee joint Informed Consent Consent Obtained: Written [place] Protocol A moment to CARE was completed. SIGN IN Personnel directly involved with the procedure wore the appropriate PPE. Special Equipment: Yes Patient/Surrogate Stated/Verified: Patient name, Date of , Relevant allergies and Intended procedure TIME OUT Intended patient and procedure match the source document(s). Consent documented and matches the intended procedure. Relevant labs, photos, and/or imaging studies have been reviewed. Correct side/site marked and visible. Medications required for procedure verified. No fire risk assessment and interventions applicable. No implant(s) inserted. 06/09/2022 11:58 AM The procedure site was prepped in the usual sterile fashion. Site: L knee joint Medications: 40 mg triamcinolone acetonide 40 mg/mL Anesthetics: 4 mL lidocaine (PF) 20 mg/mL (2 %) Outcome: Tolerated well, no immediate complications Post-injection instructions were reviewed with the patient and the patient voiced understanding of these instructions. SIGN OUT No specimen collected. All instruments, equipment, possible retained foreign bodies accounted for. Post-procedure follow-up management communicated and Plan of Care Visit completed when applicable Plan: Patient presents for follow-up of left knee pain with osteoarthritis being the impression. We reinjected the knee with cortisone today and she tolerated it well. She understands appropriate intervals between injections. She will follow-up as needed [facility] NoteHNO ID: [id number] Author: Kriss Cornelius RT(R) Service: ? Author Type: Technologist Type: Progress Notes Filed: 06/09/2022 11:29 AM Note Text[facility] History of Present illness Narrative* Garrison Lee PA-C - 06/09/2022 11:50 AM EDTAssociated Order(s): Large Joint Arthro/Inj: L knee joint Post-Procedure Diagnose(s): Primary osteoarthritis of left knee This document has been created with the use of voice recognition technology. It may contain inaccuracies: misspellings, inaccurate syntax or word sense that escaped review. CHIEF COMPLAINT: Joselito Carver is a 61 year old female who presents today for follow up of left knee pain. HISTORY OF PRESENT ILLNESS: PAIN EVALUATION 06/09/2022 1137 Pain Level: 7 Pain Location: Knee-Left Description: Dull;Aching Duration Amount of Time: 2 Duration Units: Weeks Frequency: Continuous Intervention/Comfort measure: Medication;Cold HISTORY: Joselito Carver is here for follow up of complaints of left knee pain with history of osteoarthritis. She states the injection that she received 6 months ago provided her with significant relief. Just a few weeks ago she was hiking on uneven ground and reaggravated the knee. She is back in hopes to receive a repeat cortisone injection. She is on meloxicam for pain. Denies radiation of symptoms or paresthesias. No other musculoskeletal complaints ROS: REVIEW OF SYMPTOMS: Constitutional: patient denies any recent fever or significant change in weight Gastrointestinal: patient denies any current abdominal discomfort Musculoskeletal: as noted in the HPI Neurologic: patient denies any peripheral numbness or radiation of pain SOCIAL HISTORY: Tobacco Use: Not on file ALLERGIES: ALLERGIES Allergen Reactions Nsaids (Non-Steroid* Other: See Comments Cannot take NSAIDS due to kidney disease PAST MEDICAL HISTORY: PAST MEDICAL HISTORY Diagnosis Date Depression Kidney disease SOCIAL HISTORY: Tobacco Use: Not on file EXAMINATION: GENERAL: Appears healthy, well-nourished, no deformities. ORIENTATION: Alert and oriented to person place and time HABITUS: Normal GAIT: Normal, the patient did not have trouble getting onto the exam table. left knee exam no effusion, no bakers cyst stable with patellar apprehension varus Alignment Active 0 extension, flexion 120. Good patellar tracking/ moderate-severe patella femoral crepitation Pain with palpating medial compartment, Pain with palpating lateral compartment. stable to varus and valgus stresses. Carline is some laxity Laxity to Anterior drawer. No pain with palpation of pes anserine bursa 2+ Dorsalis pedis pulse Calf soft and nontender. Hip exam wnl Intact sensation to light touch distally. RADIOGRAPHS: XR Obtained today and personally reviewed by myself demonstrating interval progressionof medial compartment OA and patellofemoral degenerative changes IMPRESSION: Encounter Diagnosis ICD-10-CM 1. Primary osteoarthritis of left knee M17.12 XR KNEE GENERAL 4V AP BOTH/PA BOTH/LAT/MERC LEFT Large Joint Arthro/Inj: L knee joint Informed Consent Consent Obtained: Written [place] Protocol A moment to CARE was completed. SIGN IN Personnel directly involved with the procedure wore the appropriate PPE. Special Equipment: Yes Patient/Surrogate Stated/Verified: Patient name, Date of , Relevant allergies and Intended procedure TIME OUT Intended patient and procedure match the source document(s). Consent documented and matches the intended procedure. Relevant labs, photos, and/or imaging studies have been reviewed. Correct side/site marked and visible. Medications required for procedure verified. No fire risk assessment and interventions applicable. No implant(s) inserted. 06/09/2022 11:58 AM The procedure site was prepped in the usual sterile fashion. Site: L knee joint Medications: 40 mg triamcinolone acetonide 40 mg/mL Anesthetics: 4 mL lidocaine (PF) 20 mg/mL (2 %) Outcome: Tolerated well, no immediate complications Post-injection instructions were reviewed with the patient and the patient voiced understanding of these instructions. SIGN OUT No specimen collected. All instruments, equipment, possible retained foreign bodies accounted for. Post-procedure follow-up management communicated and Plan of Care Visit completed when applicable Plan: Patient presents for follow-up of left knee pain with osteoarthritis being the impression. Wereinjected the knee with cortisone today and she tolerated it well. She understands appropriate intervals between injections. She will follow-up as needed Garrison Lee PA-C documented in this encounterTr[facility]10-04-2022 NotePROCEDURE: XR ANKLE RT MIN 3 VIEWS, XR FOOT RT MIN 3 VIEWS HISTORY: Pain ; right ankle and heel pain for 5 months; no known injury COMPARISON: None. FINDINGS: BONES: Small calcaneal plantar spur. No fracture, acute abnormality, or significant arthropathy. SOFT TISSUES:No visible soft tissue swelling. EFFUSION:None visible. OTHER: Negative. IMPRESSION: 1. Small calcaneal plantar spur of uncertain clinical significance. Otherwise unremarkable right ankle and foot. Electronically authenticated by: HOMERO DONALDSON Date: 2022-06-02 12:[facility]10-04-2022 NotePROCEDURE: XR ANKLE RT MIN 3 VIEWS, XR FOOT RT MIN 3 VIEWS HISTORY: Pain ; right ankle and heel pain for 5 months; no known injury COMPARISON: None. FINDINGS: BONES: Small calcaneal plantar spur. No fracture, acute abnormality, or significant arthropathy. SOFT TISSUES:No visible soft tissue swelling. EFFUSION:None visible. OTHER: Negative. IMPRESSION: 1. Small calcaneal plantar spur of uncertain clinical significance. Otherwise unremarkable right ankle and foot. Electronically authenticated by: HOMERO DONALDSON Date: 2022-06-02 12:[facility]04-04-2022 History of Present illness Narrative* Garrison Lee PA-C - 12/01/2021 12:03 PM EDT Associated Order(s): Large Joint Arthro/Inj: L knee joint Post-Procedure Diagnose(s): Primary osteoarthritis of left knee This document has been created with the use of voice recognition technology. It may contain inaccuracies: misspellings, inaccurate syntax or word sense that escaped review. CHIEF COMPLAINT: Joselito Carver is a 61 year old female who presents today for follow up of left knee pain. HISTORY OF PRESENT ILLNESS: PAIN EVALUATION 12/01/2021 0927 Pain Level: 8 Pain Location: Knee-Left Description: Stiffness;Aching;Sore Duration Amount of Time: 4 Duration Units: Months Frequency: Intermittent Intervention/Comfort measure: Medication HISTORY: Joselito Carver is here for follow up of complaints of left knee pain with history of OA. She states there have been no new injuries or other significant changes in her health since I last sawher. I injected her knee with cortisone in the summer 2020 and she has gotten good benefit up untilrecent. She does endorse some swelling about the knee and the pain is localized to the knee-she reports no sciatica symptoms. She wishes to receive a repeat cortisone injection. No other musculoskeletal complaints ROS: REVIEW OF SYSTEMS: Constitutional: patient denies any recent fever or significant change in weight Cardiovascular: patient denies any chest pain at rest Respiratory: patient denies any shortness of breath or cough Gastrointestinal: patient denies any current abdominal discomfort Integumentary: patient denies any recent skin changes Musculoskeletal: as noted in the HPI Neurologic: patient denies any peripheral numbness or radiation of pain Endocrine: patient denies a current diagnosis of diabetes Hematologic/Lymphatic: patient denies any easily bleeding, any recent infection and denies any recent observable lymph node enlargement Psychologic: negative for any recent depression or anxiety issues SOCIAL HISTORY: Tobacco Use: Not on file FAMILY HISTORY: No family history on file. ALLERGIES: ALLERGIES Allergen Reactions Nsaids (Non-Steroid* Other: See Comments Cannot take NSAIDS due to kidney disease PAST MEDICAL HISTORY: PAST MEDICAL HISTORY Diagnosis Date Depression Kidney disease SOCIAL HISTORY: Tobacco Use: Not on file EXAMINATION: GENERAL: Appears healthy, well-nourished, no deformities. ORIENTATION: Alert and oriented to person place and time HABITUS: Normal GAIT: Normal, the patient did not have trouble getting onto the exam table. Left knee exam Mild effusion, palpable Wong's cyst Neutral alignment Active 1-2 extension, flexion 115 Central patellar tracking with moderate patellofemoral crepitation noted Tenderness to palpation of medial compartment Stable to varus and valgus and anterior posterior drawer Calf soft nontender, neurovascularly intact L3-S1 with 2+ dorsalis pedis pulse RADIOGRAPHS: None today IMPRESSION: Encounter Diagnosis ICD-10-CM 1. Primary osteoarthritis of left knee M17.12 Large Joint Arthro/Inj: L knee joint Informed Consent Consent Obtained: Written [place] Protocol A moment to CARE was completed. SIGN IN Personnel directly involved with the procedure wore the appropriate PPE. Special Equipment: Yes Patient/Surrogate Stated/Verified: Patient name, Date of , Relevant allergies and Intended procedure TIME OUT Intended patient and procedure match the source document(s). Consent documented and matches the intended procedure. Relevant labs, photos, and/or imaging studies have been reviewed. No relevant labs, photos, and/or imaging studies were applicable for review. Correct side/site marked and visible. Medications required for procedure verified. No fire risk assessment and interventions applicable. No implant(s) inserted. 12/01/2021 12:06 PM The procedure site was prepped in the usual sterile fashion. Site: L knee joint Medications: 40 mg triamcinolone acetonide 40 mg/mL Anesthetics: 4 mL lidocaine (PF) 10 mg/mL (1 %) Outcome: Tolerated well, no immediate complications Post-injection instructions were reviewed with the patient and the patient voiced understanding of these instructions. SIGN OUT No specimen collected. All instruments, equipment, possible retained foreign bodies accounted for. Post-procedure follow-up management communicated and Plan of Care Visit completed when applicable Plan: Patient presents for follow-up of left knee injection with cortisone. We proceeded to do a repeat injection today and she tolerated it well. Discussed appropriate intervals between injections. We also discussed the possibility of a lubricant injection which she may consider if she has not noted significant relief from this round of steroid injection. Follow-up as needed. Garrison Lee PA-C documented in this encounterTr[facility] SystemEvaluation note* Diagnosis Primary osteoarthritis of left knee- Primary Primary localized osteoarthrosis, lower leg documented in this encounter [facility] note* Diagnosis Primary osteoarthritis of left knee- Primary Primary localized osteoarthrosis, lower leg documented in this encounter [facility] note* Diagnosis Primary osteoarthritis of left knee- Primary Primary localized osteoarthrosis, lower leg documented in this encounter [facility] noteNo InformationNortExcela Health [facility]ap[facility] Other History general Narrative - Reported* Type Description Date Medical History GERD without esophagitis Medical History Onychomycosis Medical History Low back pain with radiation Medical History Muscular pain Medical History Hyperlipidemia, unspecified Medical History Osteoporosis Medical History Plantar Fasciitis Surgical History Rhinoplasty Surgical History DEXA 10/16 hip - 2.8 Surgical History Tonsillectomy Hospitalization History SEE SURGICAL HX [facility] [employer] Other Reason for referral (narrative)* Diagnostic Procedure Only (Routine) - Closed Specialty Diagnoses / Procedures Referred By Contac t Referred To Contact XR IMAGING Diagnoses Primary osteoarthritis of left knee Procedures XR KNEE GENERAL 4V AP BOTH/PA BOTH/LAT/MERC LEFT RADIOLOGIC EXAM KNEE COMPLETE 4/MORE VIEWS Garrison Lee PA-C [address] [place] [address] Xr Imaging Referral ID Status Reason Start Date Expiration Date V isits Requested Visits Authorized [id number] Closed Auto-Generate d Referral 06/05/2022 07/05/2023 1 1 [facility] Medications Administered Section Inactive Administered Medications - up to 3 most recent administrations Medication Order MAR Action Action Date Dose Rate Site lidocaine (PF) 10 mg/mL (1 %) 4 mL injection (XYLOCAINE) 4 mL, Injection - FOR ORTHO USE ONLY, ONE TIME INJECTION, 1 dose, Starting on Wed12/01/21 at 1206, Until Wed12/01/21 at 1206 Given 12/01/2021 12:06 PM EDT 4 mL triamcinolone acetonide 40 mg injection (KENALOG 40) 40 mg, Injection - FOR ORTHO USE ONLY, ONE TIME INJECTION, 1 dose, Starting on Wed12/01/21 at 1206, Until Wed12/01/21 at 1206 Given 12/01/2021 12:06 PM EDT 40 mg Inactive Administered Medications - up to 3 most recent administrations Medication Order MAR Action Action Date Dose Rate Site lidocaine (PF) 20 mg/mL (2 %) 4 mL injection (XYLOCAINE) 4 mL, Injection - FOR ORTHO USE ONLY, ONE TIME INJECTION, 1 dose, Starting on Wed06/09/22 at 1158, Until Wed06/09/22 at 1158 Given 06/09/2022 11:58 AM EDT 4 mL Knee, Left triamcinolone acetonide 40 mg injection (KeNALog 40) 40 mg, Injection - FOR ORTHO USE ONLY, ONE TIME INJECTION, 1 dose, Starting on Wed06/09/22 at 1158, Until Wed06/09/22 at 1158 Given 06/09/2022 11:58 AM EDT 40 mg Knee, Left Inactive Administered Medications - up to 3 most recent administrations Medication Order MAR Action Action Date Dose Rate Site lidocaine (PF) 10 mg/mL (1 %) 4 mL injection (XYLOCAINE) 4 mL, Injection - FOR ORTHO USE ONLY, ONE TIME INJECTION, 1 dose, Starting on Wed03/03/23 at 1040, Until Wed03/03/23 at 1040 Given 03/03/2023 10:40 AM EDT 4 mL Knee, Left triamcinolone acetonide 40 mg injection (KeNALog 40) 40 mg, Injection - FOR ORTHO USE ONLY, ONE TIME INJECTION, 1 dose, Starting on Wed03/03/23 at 1040, Until Wed03/03/23 at 1040 Given 03/03/2023 10:40 AM EDT 40 mg Knee, Left Summary Purpose Family History No Family History Records FoundNo Family History Records Found Advance Directives No Advanced Directives Records FoundNo Advanced Directives Records Found Additional Source Comments Source Comments (unrecognize d section and content) In the event this informatio n is protected by the Federal Confidentiality of Alcohol and Drug Abuse Patient Records regulations: The Federal rules restrict any use of the information to criminally investigate or prosecute any alcohol or drug abuse patient.[facility] SystemIn the event this information is protected by the Federal Confidentiality of Alcohol and Drug Abuse Patient Records regulations: The Federal rules restrict any use of the information to criminally investigate or prosecute any alcohol or drug abuse patient.[facility] SystemIn the event this information is protected by the Federal Confidentiality of Alcohol and Drug Abuse Patient Records regulations: The Federal rules restrict any use of the information to criminally investigate or prosecute any alcohol or drug abuse patient.[facility] Reason for Visit (unrecogniz ed section and content) labs Reason Comments Established Patient Injections Swelling Reason Comments Established Patient Reason Comments Injections INFORMATION SOURCE (unrecogn ized section and content) DATE CREATED AUTHOR 01/09/2023 [facility] DATE CREATED AUTHOR 'S ORGANIZ ATION 03/03/2023 [facility] FOR RECORDS PERTAINING TO PATIENTS WHO ARE OR HAVE BEEN ENROLLED IN A CHEMICAL DEPENDENCY/SUBSTANCEABUSE PROGRAM, SOME INFORMATION MAY BE OMITTED. This clinical summary was aggregated from multiple sources. Caution should be exercised in using it in the provision of clinical care. This summary normalizes information from multiple sources, and as a consequence, information in this document may materially change the coding, format and clinical context of patient data. In addition, data may be omitted in some cases. CLINICAL DECISIONS SHOULD BE BASED ON THE PRIMARY CLINICAL RECORDS. [facility]. provides no warranty or guarantee of the accuracy or completeness of information in this document.
== END 2023-07-26 09:51 | disposition home or self-care (01) ==
LOC: RAD 09:50
PROVIDERS: PCP Family Medicine; Visit Provider Internal Medicine Rheumatology
DX: M81.0 Age-related osteoporosis without current pathological fracture (principal)
CPT/HCPCS: 77080

== ENCOUNTER 2023-07-27 10:05 | Outpatient (OUT) | payer OTHER, SELFPAY ==
[2023-07-27 12:03] LABS: Alanine Aminotransferase 22 U/L (14-59); Albumin Globulin Ratio 0.9; Albumin Level 3.6 g/dL (3.4-5.0); Alkaline Phosphatase 79 U/L (46-116); Aspartate Amino Transferase 20 U/L (15-37); BUN Creatinine Ratio 20.5; Bilirubin Total 0.3 mg/dL (0.2-1.0); Carbon Dioxide 26.9 mmol/L (21.0-32.0); Chloride 105 mmol/L (98-107); Chol HDL Ratio 3.2; Cholesterol 186 mg/dL (<=200); Estimated GFR (African America >60 (>=60); Estimated GFR (Non-African Ame >60 (>=60); Glucose 91 mg/dL (74-106); HDL Cholesterol 58 mg/dL (40-60); LDL Cholesterol Calculated 107.4 mg/dL; Potassium 3.9 mmol/L (3.5-5.1); Sodium 141 mmol/L (136-145); Total Protein 7.6 g/dL (6.4-8.2); Triglycerides 103 mg/dL (<=150); Uric Acid 3.5 mg/dL (2.6-6.0); VLDL CHOLESTEROL 20.6 mg/dL
== END 2023-07-27 10:06 | disposition home or self-care (01) ==
LOC: LAB 10:08
PROVIDERS: PCP Family Medicine; Visit Provider Family Medicine
DX: Z00.00 Encounter for general adult medical examination without abnormal findings (principal)
CPT/HCPCS: 36415; 80053; 80061; 84100; 84550

== ENCOUNTER 2023-07-28 12:22 | Outpatient (OUT) | payer OTHER, SELFPAY ==
[2023-07-28 13:09] LABS: Anion Gap 14.8; BUN Creatinine Ratio 32.5; Calcium 9.5 mg/dL (8.5-10.1); Carbon Dioxide 25.4 mmol/L (21.0-32.0); Chloride 104 mmol/L (98-107); Estimated GFR (African America >60 (>=60); Estimated GFR (Non-African Ame >60 (>=60); Glucose 94 mg/dL (74-106); Magnesium 2.2 mg/dL (1.8-2.4); Phosphorus 3.9 mg/dL (2.6-4.7); Potassium 4.2 mmol/L (3.5-5.1); Sodium 140 mmol/L (136-145)
[2023-07-29 13:07] LABS: PTH, Intact 28 pg/mL (15-65)
== END 2023-07-28 12:23 | disposition home or self-care (01) ==
LOC: LAB 12:24
PROVIDERS: PCP Family Medicine; Visit Provider Internal Medicine Rheumatology
DX: M89.9 Disorder of bone, unspecified (principal); M81.0 Age-related osteoporosis without current pathological fracture; Z79.899 Other long term (current) drug therapy
CPT/HCPCS: 36415; 80048; 82306; 83735; 83970; 84100

== ENCOUNTER 2024-05-17 09:34 | Outpatient (OUT) | payer OTHER, SELFPAY ==
--- NOTE | 2024-05-17 | MM_ITS ---
Patient Name: JOSELITO CARVER MR#: [id number] : 1960 Exam Date: 05/17/2024 Ordering Doctor: DR Piyush Bui D.O. RADIOLOGY REPORT PROCEDURE: MM TOMOSYNTHESIS SCREENING BI COMPARISON: MG MAMM SCREEN 3D YOLANDA CAD, 05/09/2021. MM TOMOSYNTHESIS SCREENING BI, 02/17/2023. INDICATIONS: Screening Mammogram Calculator Name NCI Breast Cancer Risk Assessment Tool 5 Year Breast Cancer Risk 6.40% Lifetime Breast Cancer Risk 24.60% Personal Breast Cancer No Personal Ovarian Cancer No Treatments None Family Cancers Mother with breast cancer at age 60; Aunt-maternal with breast cancer at age 65; Sister with breast cancer at age 62; Uncle-maternal with breast cancer at age 70; Brother with bladder cancer at age 58; Cousin-maternal with pancreatic cancer at age 70. LOCATION: [facility] BREAST COMPOSITION: There are scattered areas of fibroglandular density. FINDINGS: DIAGNOSTIC CATEGORY 1--NEGATIVE. NO CHANGE FROM COMPARISON ASSESSMENT. Scattered benign-appearing calcifications are present. Scattered benign-appearing lymph nodes are present. RIGHT BREAST: No significant suspicious finding. LEFT BREAST: No significant suspicious finding. RECOMMENDATIONS: ROUTINE MAMMOGRAM AND CLINICAL EVALUATION IN 12 MONTHS. PLEASE NOTE: A NORMAL MAMMOGRAM DOES NOT EXCLUDE THE POSSIBILITY OF BREAST CANCER. A CLINICALLY SUSPICIOUS PALPABLE LUMP SHOULD BE BIOPSIED. Dictated by: Beni Mendez MD on 05/17/2024 at 10:48 Approved by: Beni Mendez MD on 05/17/2024 at 10:55
--- OUTSIDE RECORDS SUMMARY | 2024-05-17 09:55 | XMS_ITS | CCD ---
Author Organization [facility] Care Team Providers Care Muffle Operator Name Role Phone Unavailable Primary Care Provider UnavailANALISA Martinez Admitting Unavailable ANALISA FARIA Attending Unavailable ALEX, DR TIFFANIE Perez Primary Care Unavailable BIENVENIDO, ANALISA Admitting Unavailable ANALISA FARIA Attending Unavailable JOHNSON, DR TIFFANIE Perez Primary Care Unavailable ZIKAISERER, DR HOMERO Denton Consulting Unavailable BIENVENIDO, ANALISA Consulting Unavailable HAKIM, DR BENNETT Admitting Unavailable HAKIM, DR BENNETT Attending Unavailable ALEX, DR TIFFANIE Perez Primary Care Unavailable HALADACarmen, DR CUNNINGHAM Consulting Unavailable JOHNSON, DR TIFFANIE Perez Admitting Unavailable JOHNSON, DR TIFFANIE Perez Attending Unavailable JOHNSON, DR TIFFANIE Perez Primary Care Unavailable JOHNSON, DR TIFFANIE Perez Consulting Unavailable JOHNSON, DR TIFFANIE Perez Admitting Unavailable JOHNSON, DR TIFFANIE Perez Attending Unavailable JOHNSON, DR TIFFANIE Perez Primary Care Unavailable JONHSON, DR TIFFANIE Perez Consulting Unavailable Unavailable Primary Care Provider UnavailTiffanie Silverio Unavailable SELF Referring Unavailable GARRISON LEE Attending Unavailable GARRISON LEE Referring Unavailable GARRISON LEE Attending Unavailable MD Tiffanie Johnson Primary Care Provider MD Vlad Gallagher Attending Provider Vlad Gallagher Attending Unavailable Tiffanie Johnson Primary Care Unavailable Vlad Gallagher Admitting Unavailable Tiffanie Johnson Primary Care Unavailable Vlad Gallagher Admitting Unavailable Vlad Gallagher Attending Unavailable Unavailable Primary Care Provider UnavailMD Tiffanie Silverio Primary Care Provider MD Vlad Gallagher Attending Provider [phone] Allergies Allergy Classification Reported Allergen(s) Allergy Type Date of Onset Reaction(s) Facility (2 sources) Non-steroidal anti-inflammato ry agent; Translations: [NSAIDS (NON-STEROIDAL ANTI-INFLAMMATO RY DRUG)] Drug Intolerance 09-13-19 Other: See Comments [facility] Work Phone: (5 sources) Non-steroidal anti-inflammato ry agent Drug Intolerance 09-13-19 Other: See Comments [facility] Work Phone: (2 sources) patient allergy list reviewed by nurse or physicia Propensity to adverse reactions 03-21-20 Comment:Done ABB Other (2 sources) Allergies Reconciled Propensity to adverse reactions Unknown ABB Other Medications Current Medications Medication Drug Class(es) Dates Sig (Normalized) Sig (Original) alendronic acid 70 mg oral tablet (6 sources) Bisphosphonate Start: 07-11-2018 take 1 tablet by mouth every week alendronate (FOSAMAX) 70 mg tablet Take 70 mg by mouth once each week. 4 07/11/2018 Active Comment on above: Take 70 mg by mouth once each week. Ascorbic Acid (6 sources) Vitamin C ascorbic acid (VITAMIN C ORAL) Take by mouth. Active ascorbic acid (V ITAMIN C ORAL) Take by mouth. 0 Active Comment on above: Take by mouth. atorvastatin 10 mg oral tablet (7 sources) HMG-CoA Reductase Inhibitor Start: take 10 mg by mouth once daily Atorvastatin Active 10 MG PO Daily May 15, 2024 12:00am Start: 07-19-2018 take 1 tablet by jennifer th once daily atorvastatin (LIPITOR) 10 mg tablet Take 10 mg by mouth once daily. 2 07/19/2018 Active Comment on above: Take 10 mg by mouth once daily. baclofen 10 mg oral tablet (8 sources) gamma-Aminobutyric Acid-ergic Agonist Start: 05-15-2024 End: 05-15-2024 take 10 mg by mouth once daily Baclofen Active 10 MG PO Daily 90 90 May 15, 2024 2:13pm Start: 07-22-2018 baclofen (DALLAS ESAL) 10 mg tablet Take 10 mg by mouth as needed. 4 07/22/2018 Active Comment on above: Take 10 mg by mouth as needed. caffeine 175 mg oral tablet (6 sources) Central Nervous System Stimulant, Methylxanthine CAFFEINE ORAL Take 175 mg by mouth. Active Comment on above: Take 175 mg by mouth . calcium citrate/vitamin D3 (CITRACAL + D ORAL) (6 sources) calcium citrate/ vitamin D3 (CITRACAL + D ORAL) Take by mouth. Active calcium citrate/ vitamin D3 (CITRACAL + D ORAL) Take by mouth. 0 Active Comment on above: Take by mouth. citalopram 40 mg oral tablet (13 sources) Serotonin Reuptake Inhibitor Start: 01-25-2024 End: 04-24-2024 take 1 tablet by mouth once daily Citalopram Active 0 .ROUTE .COMPLEX 90 April 24, 2024 3:36pm Take 1 tablet by mouth once daily Start: 07-02-2018 End: 01-25-2024 take 40 mg by mouth once daily Citalopram Discontinued 40 MG PO Daily January 25, 2024 12:00am January 25, 2024 2:19pm Comment on above: Take 40 mg by mouth once daily. cyanocobalamin, vitamin B-12, (VITAMIN B-12 ORAL) (6 sources) cyanocobalamin, vitamin B-12, (VITAMIN B-12 ORAL) Take by mouth. Active cyanocobalamin, vitamin B-12, (VITAMIN B-12 ORAL) Take by mouth. 0 Active Comment on above: Take by mouth. denosumab (2 sources) RANK Ligand Inhibitor Start: 07-28-2022 Prolia 60MG/ML Prolia( 60MG/ML Subcutaneous ) Active -Hx Entry Subcutaneous for 0 Dr. Gallagher *Pick strength-form from [employer] for eRX* Jun, Active estradiol 0.1 mg/ml vaginal cream (15 sources) Estrogen Start: 01-17-2024 End: 04-10-2024 Estradiol Active 0 .ROUTE .COMPLEX 43 April 10, 2024 11:39am INSERT 1/2 GRAM VAGINALLY TWICE WEEKLY Start: 01-17-2024 End: 01-17-2024 Estradiol Discontinued VAGIN AL January 17, 2024 12:00am January 17, 2024 3:10pm _insert ONE-HALF GRAM VAGINALLY TWICE WEEKLY; 43 grams Start: 08-07-2022 Estrace 0.01% (0.1 mg/ Estrace 0.01% (0.1 mg/, (one half) Gram pv twice weekly # 43, 08/07/2022, Ref. x2. Active vaginal pv twice weekly for 0 *Pick strength-form from [employer]IFIN for eRX* Jul, Active Start: 06-09-2018 estradiol (EST RACE) 0.01 % (0.1 mg/gram) vaginal cream Use 1 g vaginally twice a week. 3 06/09/2018 Active Comment on above: Use 1 g vaginally tw ice a week. flaxseed oil (OMEGA 3 ORAL) (6 sources) flaxseed oil (OM EGA 3 ORAL) Take by mouth. Active flaxseed oil (OM EGA 3 ORAL) Take by mouth. 0 Active Comment on above: Take by mouth. glucosamine/chondr spears A sod (OSTEO BI-FLEX ORAL) (6 sources) glucosamine/sandra dr tory Pulido sod (OSTEO BI-FLEX ORAL) Take by mouth. Active glucosamine/sandra dr spears A sod (OSTEO BI-FLEX ORAL) Take by mouth. 0 Active Comment on above: Take by mouth. lidocaine hydrochloride 0.02 mg/mg topical gel (4 sources) Antiarrhythmic, Amide Local Anesthetic Start: 05-15-2024 Lidocaine Hcl Active 1 APPLIC TOPICAL Daily May 15, 2024 12:00am Start: 03-03-2023 End: 03-03-2023 lidocaine (PF) 10 mg/mL (1 % ) 4 mL injection (XYLOCAINE) Start: 06-09-2022 End: 06-09-2022 lidocaine (PF) 20 mg/mL (2 % ) 4 mL injection (XYLOCAINE) Start: 12-01-2021 End: 12-01-2021 lidocaine (PF) 10 mg/mL (1 % ) 4 mL injection (XYLOCAINE) Lidocaine-Glycerin 2% (2 sources) Start: 06-30-2022 Lidocaine-Glyc karin 2% lidocaine-glycerin 2%, 1 (one) kit as needed # 1, 06/30/2022, Ref. x3. Active mucous membrane as needed for 0 alternative to lidocaine 2% gel...? *Reorder from XIFIN for eRx and Interaction Alerts* Jun, Active Lidocaine-Hyalur Ac-Aloe-Col l (1 source) Start: 05-15-2024 Lidocaine-Hyal ur Yf-Zfzh-Bjbt Active 1 APPLIC TOPICAL Twice daily May 15, 2024 12:00am Magnesium (6 sources) Magnesium 250 mg tab Take 250 mg by mouth. Active Magnesium 250 mg tab Take 250 mg by mouth. 0 Active Comment on above: Take 250 mg by mouth . meloxicam 15 mg oral tablet (5 sources) Nonsteroidal Anti-inflammatory Drug take 1 tablet by mouth once daily meloxicam (MOBIC) 15 mg tablet Take 15 mg by mouth once daily. Active Comment on above: Take 15 mg by mouth once daily. MULTIVITAMIN ORAL (6 sources) MULTIVITAMIN ORA L Take by mouth. Active MULTIVITAMIN ORA L Take by mouth. 0 Active Comment on above: Take by mouth. raNITIdine 150 mg oral tablet (6 sources) Histamine-2 Receptor Antagonist Start: 07-02-2018 take 1 tablet by mouth twice daily ranitidine (ZANTAC) 150 mg tablet Take 150 mg by mouth twice daily. 4 07/02/2018 Active Comment on above: Take 150 mg by mouth twice daily. Completed/Discontinued Medications Medication Drug Class(es) Dates Sig (Normalized) Sig (Original) 1 ml triamcinolone acetonide 40 mg/ml injection (3 sources) Corticosteroid Start: 03-03-2023 End: 03-03-2023 triamcinolone acetonide 40 mg injection (KeNALog 40) Start: 06-09-2022 End: 06-09-2022 triamcinolone acetonide 40 m g injection (KeNALog 40) Start: 12-01-2021 End: 12-01-2021 triamcinolone acetonide 40 m g injection (KENALOG 40) Problems Active Problems Problem Classification Problem Date Documented Date Episodic/Chronic Disorders of lipid metabolism (4 sources) Hyperlipidemia; Translations: [Hyperlipidemia, unspecified] 05-12-2024 Chronic Esophageal disorders (4 sources) Gastroesophageal reflux disease; Translations: [Gastro-esophageal reflux disease without esophagitis] 05-12-2024 Chronic Mycoses (2 sources) Onychomycosis; Translations: [Tinea unguium] Episodic Osteoarthritis (6 sources) Osteoarthritis of left knee joint; Translations: [Unilateral primary osteoarthritis, left knee] Onset: 10-29-2023 Chronic Osteoporosis (8 sources) Age-related osteoporosis without current pathological fracture; Translations: [Osteoporosis] Onset: 12-02-2022 Chronic Other aftercare (1 source) Other snf (current) drug therapy; Translations: [OTH ASSISTED CURRENT DRUG THERAPY] Onset: 12-11-2022 Episodic Other connective tissue disease (2 sources) Muscle pain; Translations: [Myalgia, unspecified site] Episodic Other connective tissue disease (1 source) 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; Translations: [Iliotibial band syndrome, left leg] 10-29-2023 Episodic Other connective tissue disease (1 source) Pain in right hand; Translations: [Pain in right hand] Onset: 02-15-2024 Episodic Other non-traumatic joint disorders (1 source) Pain in unspecified joint; Translations: [Pain in unspecified joint] Onset: 01-17-2024 Episodic Other screening for suspected conditions (not mental disorders or infectious disease) (4 sources) Patient encounter status; Translations: [Encounter for screening for malignant neoplasm of colon] 05-12-2024 Episodic Spondylosis; intervertebral disc disorders; other back problems (1 source) Cervicalgia Episodic Unclassified (4 sources) Encounter for health counseling related to travel; Translations: [[facility] [employer] SUPERINTENDENT RELTD TRAVEL] Onset: 02-07-2022 Unclassified (1 source) [...] Results Test Name Value Interpretation Reference Range Facility XR hand BI 2Von 02-15-2024 XR hand BI 2V [facility] Main [address] [address] XRay Report Signed Patient: Joselito Carver MR#: [id number] 2 : 1960 Acct:[id number] Age/Sex: 63 / F ADM Date: 02/15/24 Loc: ICXD Room: Type: [facility] Attending Dr: Vlad Gallagher MD Copies to: Vlad Gallagher MD Ordering Provider: Vlad Gallagher MD Date of Service: 02/15/24 XR/XR hand BI 2V: PAIN BILATERAL HANDS - 2 views CLINICAL DATA: Bilateral worsening hip pain. No injury. COMPARISON: None AP and lateral views were obtained. No acute fractures or dislocation are noted. There is no disproportionate joint space narrowing at the interphalangeal joints however there are some areas with minimal marginal spurring. There is mild joint space narrowing at the second and third metacarpal phalangeal joints on both sides, greater on the left. There is joint space narrowing at the lateral intercarpal and first carpal metacarpal joints on the right with hypertrophy. There is also some hypertrophy at the first carpal metacarpal joint on the left. No soft tissue swelling is noted. XR/XR hand BI 2V IMPRESSION: DEGENERATIVE CHANGES, DESCRIBED. NO ACUTE BONY FINDINGS. Impression dictated by: Sanjana Liao M.D.02/15/2024 4:19 PM Dictation Location: [place] [address] Transcribed By: [facility] 02/15/24 161 Dictated By: Sanjana Liao MD 02/15/241616 Signed By: 02/15/24 1619 Normal [facility] ESTUARDO Antinuclear Antibodieson 01-17-2024 Antinuclear Abs, IFA Positive Critically abnormal . [facility] Comment on above: Result Comment: Nega tive <1:80 Borderline 1:80 Positive >1:80 Performed By: #### T SH3, ESR, CRP, CBC, CMP, PTH, MG, PHOS #### [facility] [address] [place] [address] #### ESTUARDO #### [facility] , Note 1 Normal . [facility] Comment on above: Result Comment: Sonia na Potential Disease Association Homogeneous Systemic Lupus Erythematosus, Drug Induced Systemic Lupus Erythematosus, Chronic Autoimmune hepatitis, Juvenile Idiopathic Arthritis Speckled Sjogren Syndrome, Systemic Lupus Erythematosus, Subacute Cutaneous Lupus, Lupus, Congenital Heart Block, Mixed Connective Tissue Disease, Scleroderma-diffuse, Scleroderma-Autoimmune Myositis Overlap Syndrome, Systemic Lupus Qvvzcywqiqjhl-Bjoatbuonqi-Iaxzyrnxlx Myositis Overlap Syndrome, Systemic Autoimmune Rheumatic Disease, Undifferentiated Connective Tissue Disease Nucleolar Systemic Sclerosis, Scleroderma-Autoimmune Myositis Overlap Syndrome, Sjogren Syndrome, Raynaud phenomenon, Pulmonary Arterial Hypertension, Systemic Autoimmune Rheumatic Disease, Cancer Centromere Scleroderma-CREST, Limited Cutaneous SSc, Raynaud's Phenomenon, Primary Biliary Cholangitis Nuclear Dot Primary Biliary Cholangitis Nuclear Primary Biliary Cholangitis, Autoimmune Membrane Hepatitis/Liver disease, Systemic Autoimmune Rheumatic Disease, Autoimmune Cytopenias, Linear Scleroderma, Antiphospholipid Syndrome Performed at: [address] [id number] Varnish Maker: Haresh Obregon PhD, Phone: [phone] PERFORMED BY: [place] [address] PATHOLOGIST [employer]UM[employer] COMMUNICATIONS MANAGER TIFFANIE PICKARD M.D. Performed By: #### T SH3, ESR, CRP, CBC, CMP, PTH, MG, PHOS #### [facility] [address] [place] [address] #### ESTUARDO #### [facility] , Speckled Pattern 1:160 High . [facility] Comment on above: Result Comment: ICAP nomenclature: [id number],5,29 Performed By: #### T SH3, ESR, CRP, CBC, CMP, PTH, MG, PHOS #### [place] [address] [place] #### ESTUARDO #### [facility] , Alanine aminotransferase [En zymatic activity/volume] in Serum or PlasmaOrdered By: Vlad Gallagher on 01-17-2024 ALT [Catalytic activity/Vol] 21 U/L Normal 7-52 [facility] Comment on above: Performed By: #### T SH3, ESR, CRP, CBC, CMP, PTH, MG, PHOS #### [facility] [address] [place] [address] [place] #### ESTUARDO #### [facility] , Albumin [Mass/volume] in Ser um or Plasma by Bromocresol green (BCG) dye binding methoOrdered By: Vlad Gallagher on 01-17-2024 Albumin BCG dye [Mass/Vol] 4.3 g/dL 3.5-5.7 [facility] Alkaline phosphatase [Enzyma tic activity/volume] in Serum or PlasmaOrdered By: Vlad Gallagher on 05-20-2024 ALP [Catalytic activity/Vol] 70 U/L Normal 34-104 [facility] Comment on above: Performed By: #### T SH3, ESR, CRP, CBC, CMP, PTH, MG, PHOS #### [facility] [address] [place] [address] [place] #### ESTUARDO #### [facility] , Aspartate aminotransferase [ Enzymatic activity/volume] in Serum or PlasmaOrdered By: Vlad Gallagher on 01-17-2024 AST [Catalytic activity/Vol] 23 U/L Normal 13-39 [facility] Comment on above: Performed By: #### T SH3, ESR, CRP, CBC, CMP, PTH, MG, PHOS #### [facility] [address] [place] [address] [place] #### ESTUARDO #### [facility] , Automated basophil %Ordered By: Vlad Gallagher on 01-17-2024 Basophils/100 WBC (Bld) 0.8 % Normal . [facility] Comment on above: Performed By: #### T SH3, ESR, CRP, CBC, CMP, PTH, MG, PHOS #### [facility] [address] [place] [address] [place] #### ESTUARDO #### [facility] , Automated basophil countOrde red By: Vlad Gallagher on 01-17-2024 Basophils (Bld) [#/Vol] 0.0 10*3/uL Normal 0.0-0.2 [facility] Comment on above: Performed By: #### T SH3, ESR, CRP, CBC, CMP, PTH, MG, PHOS #### [facility] [address] [place] [address] [place] #### ESTUARDO #### [facility] , Automated blood monocyte cou ntOrdered By: Vlad Gallagher on 01-17-2024 Monocytes (Bld) [#/Vol] 0.6 10*3/uL Normal 0.0-0.8 [facility] Comment on above: Performed By: #### T SH3, ESR, CRP, CBC, CMP, PTH, MG, PHOS #### [place] [address] [place] #### ESTUARDO #### [facility] , Automated eosinophil %Ordere d By: Vlad Gallagher on 01-17-2024 Eosinophils/100 WBC (Bld) 2.7 % Normal . [facility] Comment on above: Performed By: #### T SH3, ESR, CRP, CBC, CMP, PTH, MG, PHOS #### [place] [address] [place] #### ESTUARDO #### [facility] , Automated eosinophil countOr dered By: Vlad Gallagher on 01-17-2024 Eosinophils (Bld) [#/Vol] 0.2 10*3/uL Normal 0.0-0.45 [facility] Comment on above: Performed By: #### T SH3, ESR, CRP, CBC, CMP, PTH, MG, PHOS #### [place] [address] [place] #### ESTUARDO #### [facility] , Automated monocyte %Ordered By: Vlad Gallagher on 01-17-2024 Monocytes/100 WBC (Bld) 10.3 % Normal . [facility] Comment on above: Performed By: #### T SH3, ESR, CRP, CBC, CMP, PTH, MG, PHOS #### [place] [address] [place] #### ESTUARDO #### [facility] , Automated neutrophil %Ordere d By: Vlad Gallagher on 01-17-2024 Neutrophils/100 WBC (Bld) 62.8 % Normal . [facility] Comment on above: Performed By: #### T SH3, ESR, CRP, CBC, CMP, PTH, MG, PHOS #### [place] [address] [place] #### ESTUARDO #### [facility] , Bilirubin.total [Mass/volume ] in Serum or PlasmaOrdered By: Vlad Gallagher on 01-17-2024 Bilirubin [Mass/Vol] 0.3 mg/dL Normal 0.3-1.0 [facility] Comment on above: Performed By: #### T SH3, ESR, CRP, CBC, CMP, PTH, MG, PHOS #### [address] #### ESTUARDO #### [facility] , C reactive protein [Mass/vol ume] in Serum or PlasmaOrdered By: Vlad Gallagher on 01-17-2024 CRP [Mass/Vol] < 0.5 mg/dL 0.0-0.5 [facility] C-Reactive Proteinon CRP [Mass/Vol] mg/L Normal 0.0-0.5 [facility] Comment on above: Performed By: #### T SH3, ESR, CRP, CBC, CMP, PTH, MG, PHOS #### [place] [address] [place] #### ESTUARDO #### [facility] , Calcium [Mass/volume] in Ser um or PlasmaOrdered By: Vlad Gallagher on 01-17-2024 Calcium [Mass/Vol] 9.6 mg/dL Normal 8.6-10.3 [facility] Comment on above: Performed By: #### T SH3, ESR, CRP, CBC, CMP, PTH, MG, PHOS #### [place] [address] [place] #### ESTUARDO #### [facility] , Carbon dioxide, total [Moles /volume] in Serum or PlasmaOrdered By: Vlad Gallagher on 01-17-2024 CO2 [Moles/Vol] 28.0 mmol/L Normal 21.0-31.0 [facility] Comment on above: Performed By: #### T SH3, ESR, CRP, CBC, CMP, PTH, MG, PHOS #### [place] [address] [place] #### ESTUARDO #### [facility] , Chloride [Moles/volume] in S grayson or PlasmaOrdered By: Vlad Gallagher on 01-17-2024 Chloride [Moles/Vol] 105 mmol/L Normal 98-107 [facility] Comment on above: Performed By: #### T SH3, ESR, CRP, CBC, CMP, PTH, MG, PHOS #### [address] #### ESTUARDO #### [facility] , Complete Blood Count Auto Di ffon 01-17-2024 Mean Corpuscular HGB Conc 33.1 g/dL Normal 32.0-35.0 [facility] Comment on above: Performed By: #### T SH3, ESR, CRP, CBC, CMP, PTH, MG, PHOS #### [address] #### ESTUARDO #### [facility] , NRBC% 0.1 /100{WBC} Normal 0-0.5 [facility] Comment on above: Performed By: #### T SH3, ESR, CRP, CBC, CMP, PTH, MG, PHOS #### [facility] [address] [place] [address] [place] #### ESTUARDO #### [facility] , Comprehensive Metabolic Pane moriah 01-17-2024 Albumin [Mass/Vol] 4.3 g/dL Normal 3.5-5.7 [facility] Comment on above: Performed By: #### T SH3, ESR, CRP, CBC, CMP, PTH, MG, PHOS #### [place] [address] [place] #### ESTUARDO #### [facility] , GFR/1.73 sq M.predicted MDRD (S/P/Bld) [Vol rate/Area] mL/min/{1.73_m2} Normal [facility] Comment on above: Performed By: #### T SH3, ESR, CRP, CBC, CMP, PTH, MG, PHOS #### [address] #### ESTUARDO #### [facility] , Creatinine [Mass/volume] in Serum or PlasmaOrdered By: Vlad Gallagher on 01-17-2024 Creatinine [Mass/Vol] 0.87 mg/dL Normal 0.60-1.20 [facility] Comment on above: Performed By: #### T SH3, ESR, CRP, CBC, CMP, PTH, MG, PHOS #### [facility] [address] [place] [address] #### ESTUARDO #### [facility] , Erythrocyte Sedimentation Ra michell 01-17-2024 ESR (Bld) [Velocity] 44 mm/h High 0-29 [facility] Comment on above: Result Comment: PERF ORMED BY: [place] [address] PATHOLOGIST HUM[employer] COMMUNICATIONS MANAGER TIFFANIE PICKARD M.D. Performed By: #### T SH3, ESR, CRP, CBC, CMP, PTH, MG, PHOS #### [address] #### ESTUARDO #### [facility] , Erythrocyte distribution wid th [Ratio] by Automated countOrdered By: Vlad Gallagher on 01-17-2024 Erythrocyte distribution width (RBC) [Ratio] 14.5 % Normal 11.9-15.3 [facility] Comment on above: Performed By: #### T SH3, ESR, CRP, CBC, CMP, PTH, MG, PHOS #### [address] #### ESTUARDO #### [facility] , Erythrocyte sedimentation ra te by Photometric methodOrdered By: Vlad Gallagher on 01-17-2024 ESR Photometric method (Bld) [Velocity] 44 mm/hr 0-29 [facility] Erythrocytes [#/volume] in B lood by Automated countOrdered By: Vlad Gallagher on 01-17-2024 RBC (Bld) [#/Vol] 4.43 10*6/uL Normal 3.60-5.00 [facility] Comment on above: Performed By: #### T SH3, ESR, CRP, CBC, CMP, PTH, MG, PHOS #### [address] #### ETSUARDO #### [facility] , Glucose [Mass/volume] in Ser um or PlasmaOrdered By: Vlad Gallagher on 01-17-2024 Glucose [Mass/Vol] 86 mg/dL Normal 70-100 [facility] Comment on above: ADA recommended refe rence rangeRandom Glucose Reference Range is dependent on time and content of last meal. Glucose of more than 200 mg/dL in a nonstressed, ambulatory subject supports the diagnosis of Diabetes Mellitus. Result Comment: [place] om Glucose Reference Range is dependent on time and content of last meal. Glucose of more than 200 mg/dL in a nonstressed, ambulatory subject supports the diagnosis of Diabetes Mellitus. ADA recommended reference range Performed By: #### T SH3, ESR, CRP, CBC, CMP, PTH, MG, PHOS #### [address] #### ESTUARDO #### [facility] , Hematocrit [Volume Fraction] of Blood by Automated countOrdered By: Vlad Gallagher on 01-17-2024 Hematocrit (Bld) [Volume fraction] 41.6 % Normal 34.0-46.4 [facility] Comment on above: Performed By: #### T SH3, ESR, CRP, CBC, CMP, PTH, MG, PHOS #### [place] [address] [place] #### ESTUARDO #### [facility] , Hemoglobin [Mass/volume] in BloodOrdered By: Vlad Gallagher on 01-17-2024 Hemoglobin (Bld) [Mass/Vol] 13.8 g/dL Normal 11.8-15.4 [facility] Comment on above: Performed By: #### T SH3, ESR, CRP, CBC, CMP, PTH, MG, PHOS #### [facility] [address] #### ESTUARDO #### [facility] , Leukocytes [#/volume] correc yoel for nucleated erythrocytes in Blood by Automated counOrdered By: Vlad Gallagher on 01-17-2024 WBC corrected for nucl RBC Auto (Bld) [#/Vol] 6.2 10*3/uL 3.8-11.6 [facility] Leukocytes [#/volume] in Blo od by Automated countOrdered By: Vlad Gallagher on 01-17-2024 WBC (Bld) [#/Vol] 6.2 10*3/uL Normal 3.8-11.6 [facility] Comment on above: Performed By: #### T SH3, ESR, CRP, CBC, CMP, PTH, MG, PHOS #### [address] #### ESTUARDO #### [facility] , Lymphocytes [#/volume] in Bl ood by Automated countOrdered By: Vlad Gallagher on 01-17-2024 Lymphocytes (Bld) [#/Vol] 1.5 10*3/uL Normal 1.00-4.8 [facility] [facility] Comment on above: Performed By: #### T SH3, ESR, CRP, CBC, CMP, PTH, MG, PHOS #### [address] #### ESTUARDO #### [facility] , Lymphocytes/100 leukocytes i n Blood by Automated countOrdered By: Vlad Gallagher on 01-17-2024 Lymphocytes/100 WBC (Bld) 23.4 % Normal . [facility] Comment on above: Performed By: #### T SH3, ESR, CRP, CBC, CMP, PTH, MG, PHOS #### [place] [address] [place] #### ESTUARDO #### [facility] , MCH [Entitic mass] by Automa yoel countOrdered By: Vlad Gallagher on 01-17-2024 MCH (RBC) [Entitic mass] 31.1 pg Normal 24.7-34.3 [facility] Comment on above: Performed By: #### T SH3, ESR, CRP, CBC, CMP, PTH, MG, PHOS #### [place] [address] [place] #### ESTUARDO #### [facility] , MCHC Auto (RBC) [Mass/Vol]Or dered By: Vlad Gallagher on 01-17-2024 MCHC (RBC) [Mass/Vol] 33.1 g/dL 32.0-35.0 [facility] MCV [Entitic volume] by Auto mated countOrdered By: Vlad Gallagher on 01-17-2024 MCV (RBC) [Entitic vol] 93.9 fL Normal 80-100 F [facility] Comment on above: Performed By: #### T SH3, ESR, CRP, CBC, CMP, PTH, MG, PHOS #### [address] #### ESTUARDO #### [facility] , Magnesium [Mass/volume] in S grayson or PlasmaOrdered By: Vlad Gallagher on 01-17-2024 Magnesium [Mass/Vol] 2.1 mg/dL Normal 1.9-2.7 [facility] Comment on above: Performed By: #### T SH3, ESR, CRP, CBC, CMP, PTH, MG, PHOS #### [place] [address] [place] #### ESTUARDO #### [facility] , Neutrophils [#/volume] in Bl ood by Automated countOrdered By: Vlad Gallagher on 01-17-2024 Neutrophils (Bld) [#/Vol] 3.9 10*3/uL Normal 1.8-7.7 [facility] Comment on above: Performed By: #### T SH3, ESR, CRP, CBC, CMP, PTH, MG, PHOS #### [place] [address] [place] #### ESTUARDO #### [facility] , No Panel InformationOrdered By: Vlad Gallagher on 01-17-2024 Anti-Nuclear Antibody Comment 2 See comment . [facility] Comment on above: Pattern Potential Di sease Association Homogeneous Systemic Lupus Erythematosus, Drug Induced Systemic Lupus Erythematosus, Chronic Autoimmune hepatitis, Juvenile Idiopathic Arthritis Speckled Sjogren Syndrome, Systemic Lupus Erythematosus, Subacute Cutaneous Lupus, Lupus, Congenital Heart Block, Mixed Connective Tissue Disease, Scleroderma-diffuse, Scleroderma-Autoimmune Myositis Overlap Syndrome, Systemic Lupus Jyxiymrmdoexa-Yybdxcchbfo-Dracneecwr Myositis Overlap Syndrome, Systemic Autoimmune Rheumatic Disease, Undifferentiated Connective Tissue Disease Nucleolar Systemic Sclerosis, Scleroderma-Autoimmune Myositis Overlap Syndrome, Sjogren Syndrome, Raynaud phenomenon, Pulmonary Arterial Hypertension, Systemic Autoimmune Rheumatic Disease, Cancer Centromere Scleroderma-CREST, Limited Cutaneous SSc, Raynaud's Phenomenon, Primary Biliary Cholangitis Nuclear Dot Primary Biliary Cholangitis Nuclear Primary Biliary Cholangitis, AutoimmuneMembrane Hepatitis/Liver disease, Systemic Autoimmune Rheumatic Disease, Autoimmune Cytopenias, Linear Scleroderma, Antiphospholipid Syndrome Performed at: [facility] [id number] Director: Haresh Obregon PhD, Phone: [phone] Estimated GFR (CKD-EPI) > 60.0 mL/Min [facility] Creatinine Clearance (Chem N/A [facility] Nucleated erythrocytes [Pres ence] in Blood by Automated countOrdered By: Vlad Gallagher on 01-17-2024 Nucleated RBC Auto Ql (Bld) 0.1 /100{WBC} 0-0.5 [facility] Parathyrin.intact [Mass/volu me] in Serum or PlasmaOrdered By: Vlad Gallagher on 01-17-2024 Parathyrin.intact [Mass/Vol] 40.8 pg/mL [facility] Parathyroid Hormone Intacton 01-17-2024 Parathyroid Hormone Intact 40.8 pg/mL Normal [facility] Comment on above: Result Comment: PERF ORMED BY: [place] [address] PATHOLOGIST [employer] COMMUNICATIONS MANAGER TIFFANIE PICKARD M.D. Performed By: #### T SH3, ESR, CRP, CBC, CMP, PTH, MG, PHOS #### [address] #### ESTUARDO #### [facility] , Phosphate [Mass/volume] in S grayson or PlasmaOrdered By: Vlad Gallagher on 01-17-2024 Phosphate [Mass/Vol] 2.6 mg/dL Normal 2.5-4.5 [facility] Comment on above: Performed By: #### T SH3, ESR, CRP, CBC, CMP, PTH, MG, PHOS #### [facility] [address] [place] [address] [place] #### ESTUARDO #### [facility] , Platelet mean volume [Entiti c volume] in Blood by Automated countOrdered By: Vlad Gallagher on 01-17-2024 Platelet mean volume (Bld) [Entitic vol] 10.2 fL Normal 6.3-10.7 [facility] Comment on above: Performed By: #### T SH3, ESR, CRP, CBC, CMP, PTH, MG, PHOS #### [facility] [address] [place] [address] [place] #### ESTUARDO #### [facility] , Platelets [#/volume] in Bloo d by Automated countOrdered By: Vlad Gallagher on 01-17-2024 Platelets (Bld) [#/Vol] 238 10*3/uL Normal 150-450 [facility] Comment on above: Performed By: #### T SH3, ESR, CRP, CBC, CMP, PTH, MG, PHOS #### [facility] [address] [place] [address] [place] #### ESTUARDO #### [facility] , Potassium [Moles/volume] in Serum or PlasmaOrdered By: Vlad Gallagher on 01-17-2024 Potassium [Moles/Vol] 4.2 mmol/L Normal 3.5-5.1 [facility] Comment on above: Performed By: #### T SH3, ESR, CRP, CBC, CMP, PTH, MG, PHOS #### [facility] [address] [place] [address] [place] #### ESTUARDO #### [facility] , Protein [Mass/volume] in Ser um or PlasmaOrdered By: Vlad Gallagher on 01-17-2024 Protein [Mass/Vol] 7.3 g/dL Normal 6.4-8.9 [facility] Comment on above: Performed By: #### T SH3, ESR, CRP, CBC, CMP, PTH, MG, PHOS #### [facility] [address] [place] [address] [place] #### ESTUARDO #### [facility] , Serum globulin measurement b y calculation (mass/volume)Ordered By: Vlad Gallagher on 01-17-2024 Globulin (S) [Mass/Vol] 3.0 g/dL Normal [facility] Comment on above: Performed By: #### T SH3, ESR, CRP, CBC, CMP, PTH, MG, PHOS #### [facility] [address] [place] [address] [place] #### ESTUARDO #### [facility] , Serum nuclear antibody titer Ordered By: Vlad Gallagher on 01-17-2024 Nuclear Ab (S) [Titer] Positive . [facility] Comment on above: Negative <1:80 Borde rline 1:80 Positive >1:80 Serum or plasma albumin/glob ulin mass ratioOrdered By: Vlad Gallagher on 01-17-2024 Albumin/Globulin [Mass ratio] 1.4 {ratio} [facility] Comment on above: Performed By: #### T SH3, ESR, CRP, CBC, CMP, PTH, MG, PHOS #### [address] #### ESTUARDO #### [facility] , Serum or plasma anion gap de terminationOrdered By: Vlad Gallagher on 01-17-2024 Anion gap [Moles/Vol] 8.2 mmol/L Normal 6.0-15.0 [facility] Comment on above: Performed By: #### T SH3, ESR, CRP, CBC, CMP, PTH, MG, PHOS #### [facility] [address] [place] [address] [place] #### ESTUARDO #### [facility] , Serum speckled pattern antin uclear antibody (ESTUARDO) titerOrdered By: Vlad Gallagher on 01-17-2024 Speckled nuclear Ab pattern (S) [Titer] 1:160 . [facility] Comment on above: ICAP nomenclature: A C-2,4,5,29 Sodium [Moles/volume] in Ser um or PlasmaOrdered By: Vlad Gallagher on 01-17-2024 Sodium [Moles/Vol] 137 mmol/L Normal 136-145 [facility] Comment on above: Performed By: #### T SH3, ESR, CRP, CBC, CMP, PTH, MG, PHOS #### [facility] [address] [place] [address] #### ESTUARDO #### [facility] , Thyrotropin [Units/volume] i n Serum or PlasmaOrdered By: Vlad Gallagher on 01-17-2024 TSH Qn 3.40 m[IU]/L Normal 0.45-5.33 [facility] Comment on above: Result Comment: PERF ORMED BY: [address] [place] [address] PATHOLOGIST [employer] COMMUNICATIONS MANAGER TIFFANIE PICKARD M.D. Performed By: #### T SH3, ESR, CRP, CBC, CMP, PTH, MG, PHOS #### [facility] [address] [place] [address] #### ESTUARDO #### [facility] , Urea nitrogen [Mass/volume] in Serum or PlasmaOrdered By: Vlda Gallagher on 01-17-2024 Urea nitrogen [Mass/Vol] 24 mg/dL Normal 7-25 [facility] Comment on above: Performed By: #### T SH3, ESR, CRP, CBC, CMP, PTH, MG, PHOS #### [facility] [address] [place] [address] #### ESTUARDO #### [facility] , CNOVon 10-29-2023 CNOV Office Visit (LOORRM ) JOSELITO CARVER ([id number]) 1960 F Date Time Provider Department 10/29/23 11:45 AM GARRISON LEE LOORRLizzie During your visit today, we recorded the following information about you: Garrison Lee PA-C 10/29/2023 12:22 PM Signed This document has been created with the use of voice recognition technology. It may contain inaccuracies: misspellings, inaccurate syntax or word sense that escaped review. CHIEF COMPLAINT: Joselito Carver is a 63 year old female who presents today for follow up of left knee. HISTORY OF PRESENT ILLNESS: PAIN EVALUATION 10/26/2023 1040 10/29/2023 1137 Pain Level: 6 7 Pain Location: Knee-Left Knee-Left Description: Aching;Sharp Sharp;Aching Duration Amount of Time: 1 4 Duration Units: Hours Days Frequency: Intermittent Intermittent Intervention/Comfort measure: Medication;Reposition ;Cold Medication;Cold ALEVE Comments: Pain occurs after extended physical activity. Yesterday I walked 7.5 miles at a 13:50/mile pace. Pain started at about the long term point and increased until I was finished. The knee was difficult to bend. Went home and iced it and took alleve. This helped -- HISTORY: Joselito Carver is here for follow up of complaints of arthritis flare of the left knee. She states most of her pain is posterior. She has severe medial compartment degenerative change. She has a race coming up soon in [facility] where she will be power walking a half-marathon. She is looking for a cortisone injection to help her through the race. Also reports some lateral knee pain as well- worse with activity. No other musculoskeletal complaints ROS: REVIEW OF SYSTEMS: Constitutional: patient denies any recent fever or significant change in weight Cardiovascular: patient denies any chest pain at rest Respiratory: patient denies any shortness of breath or cough Gastrointestinal: patient denies any current abdominal discomfort Integumentary: patient denies any recent skin changes Musculoskeletal: as noted in the HPI Neurologic: as noted in the HPI Endocrine: patient denies a current diagnosis of diabetes Hematologic/Lymphatic : patient denies any easily bleeding, any recent [...] the exam table. left knee exam no effusion Neutral Alignment Active 0 extension, flexion 120. central patellar tracking/ moderate patellofemoral crepitation No Pain with patellar compression, positive Pain with palpating medial compartment, no Pain with palpating lateral compartment. Pain at distal ITB stable to varus and valgus stresses. Carline is negative stable Anterior/posterior drawer. negative McMurrays No pain with palpation of pes anserine bursa Calf soft and nontender. Hip exam- negative log roll, preserved ER/IR, no pain with axial loading NV intact L3-S1 with 2+ DP pulse. RADIOGRAPHS: none IMPRESSION: Encounter Diagnosis ICD-10-CM 1. Primary osteoarthritis of left knee M17.12 XR KNEE GENERAL 4V AP BOTH/PA BOTH/LAT/MERC LEFT 2. It band syndrome, left M76.32 Procedures Plan: Follow-up left knee. Pain at the distal IT band and with her activity level would be consistent with IT band friction syndrome. Discussed stretching techniques. She understands she has severe arthritis in the knee. I injected this again today with cortisone intra-articularly and this was well-tolerated. Discussed appropriate intervals between injections. Discussed potential activity modification. She will see how she does with her upcoming race. May follow-up as needed Garrison Lee PA-C Referring Provider: SELF [[id number]] Allergies As of Date: 10/29/2023 Noted Allergy Reaction NSAIDS (NON-STEROIDAL ANTI-INFLAM* 9 14 - Other: See Comments Comments: Cannot take NSAIDS due to kidney disease Date Reviewed: 10/29/2023 Reviewed by: Garrison Lee PA-C - Fully Assessed Reason for Visit: Follow Up [171] Primary Visit Diagnosis:Primary osteoarthritis of left knee [M17.12] Other Visit Diagnosis:It band syndrome, left [M76.32] Order(s):XR KNEE GENERAL 4V AP BOTH/PA BOTH/LAT/MERC LEFT [[id number]] Order #: [id number] FUTURE Prescriptions as of 10/29/2023 - meloxicam (MOBIC) 15 mg tablet (more content not included)... Normal [facility] XR KNEE 4V AP/PA BOTH+LAT/ME R LTon 10-29-2023 XR KNEE 4V AP/PA BOTH+LAT/JESS LT * * *Final Report* * * DATE OF EXAM: Oct 29 2023 11:35AM LZX 5202 - XR KNEE 4V AP/PA BOTH+LAT/JESS LT / PROCEDURE REASON: Primary osteoarthritis of left knee * * * * Physician Interpretation * * * * Left knee x-rays: HISTORY: Pain TECHNIQUE: 4 views were obtained. COMPARISON: 06/09/2022 RESULT: There has been interval progression of degenerative arthrosis of the left knee. Osseous structures are intact, without evidence of an acute fracture. There is now severe narrowing of the medial femorotibial compartment of the knee and moderate tricompartmental osteophyte formation. There is no evidence of a joint effusion. Mild narrowing of the medial compartment of the RIGHT knee and mild tricompartmental osteophytosis is demonstrated on the RIGHT. IMPRESSION: 1. Degenerative arthrosis of both knees, LEFT greater than RIGHT. Road Train Driver: MARKEL Transcribe Date/Time: Oct 29 2023 12:25P Dictated by : DARLENE SPRINGER MD This examination was interpreted and the report reviewed and electronically signed by: DARLENE SPRINGER MD on Oct 29 2023 12:27PM EST [id number] Normal [facility] XR Knee - left 4 Viewson IMPRESSION: 1. Degenerative arthrosis of both knees, LEFT greater than RIGHT. Road Train Driver: [facility] Transcribe Date/Time: Oct 29 2023 12:25P Dictated by : DARLENE SPRINGER MD This examination was interpreted and the report reviewed and electronically signed by: DARLENE SPRINGER MD on Oct 29 2023 12:27PM EST DIVISION OF RADIOLOGY * * *Final Report* * * DATE OF EXAM: Oct 29 2023 11:35AM LZX 5202 - XR KNEE 4V AP/PA BOTH+LAT/JESS LT / PROCEDURE REASON: Primary osteoarthritis of left knee * * * * Physician Interpretation * * * * Left knee x-rays: HISTORY: Pain TECHNIQUE: 4 views were obtained. COMPARISON: 06/09/2022 RESULT: There has been interval progression of degenerative arthrosis of the left knee. Osseous structures are intact, without evidence of an acute fracture. There is now severe narrowing of the medial femorotibial compartment of the knee and moderate tricompartmental osteophyte formation. There is no evidence of a joint effusion. Mild narrowing of the medial compartment of the RIGHT knee and mild tricompartmental osteophytosis is demonstrated on the RIGHT. DIVISION OF RADIOLOGY Provider, Rosaura Nadine [facility] - 10/29/2023 * * *Final Report* * * DATE OF EXAM: Oct 29 2023 11:35AM LZX 5202 - XR KNEE 4V AP/PA BOTH+LAT/JESS LT / PROCEDURE REASON: Primary osteoarthritis of left knee * * * * Physician Interpretation * * * * Left knee x-rays: HISTORY: Pain TECHNIQUE: 4 views were obtained. COMPARISON: 06/09/2022 RESULT: There has been interval progression of degenerative arthrosis of the left knee. Osseous structures are intact, without evidence of an acute fracture. There is now severe narrowing of the medial femorotibial compartment of the knee and moderate tricompartmental osteophyte formation. There is no evidence of a joint effusion. Mild narrowing of the medial compartment of the RIGHT knee and mild tricompartmental osteophytosis is demonstrated on the RIGHT. IMPRESSION IMPRESSION: 1. Degenerative arthrosis of both knees, LEFT greater than RIGHT. Road Train Driver: PSCB Transcribe Date/Time: Oct 29 2023 12:25P Dictated by : DARLENE SPRINGER MD This examination was interpreted and the report reviewed and electronically signed by: DARLENE SPRINGER MD on Oct 29 2023 12:27PM [facility] Radiology Study observation (narrative) [facility] XR Knee - left 4 ViewsOrdere d By: [facility] Provider on 10-29-2023 [facility] CNOVon 03-03-2023 CNOV Office Visit (LOORRM ) JOSELITO CARVER ([id number]) 1960 F Date Time Provider Department 03/03/23 [...] Knee-Left Description: Aching;Stiffness Frequency: Intermittent Intervention/Comfort measure: Medication;Reposition ;Cold HISTORY: Joselito Carver is here for follow up of complaints of recurrent left knee pain with additional symptoms of posterior knee pain. She states she has also been dealing with plantar fasciitis of the right foot and doing physical therapy for that. She remains very active and does long distance [place] races. These activities seem to flareup the [...] patient denies a current diagnosis of diabetes Hematologic/Lymphatic : patient denies any easily bleeding, any recent [...] knee joint Informed Consent Consent Obtained: Written [place] Protocol A moment to CARE was completed. [...] Date: 03/03/2023 Noted Allergy Reaction NSAIDS (NON-STEROIDAL ANTI-INFLAM* 9 14 - Other: See Comments Comments: Cannot take NSAIDS due to kidney diseas (more content not included)... [facility] 12-03-2022 PTH, Intact 25 pg/mL Normal 15-65 [facility] Comment on above: Performed By: #### P THINT #### [facility] [address] [address] [address] Noris Duenas MAGNESIUMon 12-02-2022 Magnesium [Mass/Vol] 2.0 mg/dL Normal 1.8-2.4 [facility] Comment on above: Performed By: #### P HOS, MG, BMP ####[facility] [id number] [address]Dr[address] Noris Duenas PHOSPHORUSon 12-02-2022 Phosphate [Mass/Vol] 3.5 mg/dL Normal 2.6-4.7 [facility] Comment on above: Performed By: #### P HOS, MG, BMP ####[facility] [id number] [address]Dr[address] Noris Duenas PROF CHEM 8 (BAS METB)on Anion gap [Moles/Vol] 12.0 mmol/L Normal [facility] Comment on above: Performed By: #### P HOS, MG, BMP #### [facility] [address] [address] [address] Noris Duenas Calcium [Mass/Vol] 9.4 mg/dL Normal 8.5-10.1 [facility] Comment on above: Performed By: #### P HOS, MG, BMP #### [facility] [address] [address] [address] Noris Duenas Chloride [Moles/Vol] 103 mmol/L Normal 98-107 [facility] Comment on above: Performed By: #### P HOS, MG, BMP #### [facility] [address] [address] [address] Noris Duenas CO2 [Moles/Vol] 29.0 mmol/L Normal 21.0-32.0 [facility] Comment on above: Performed By: #### P HOS, MG, BMP #### [facility] [address] [address] [address] Noris Duenas Creatinine [Mass/Vol] 0.70 mg/dL Normal 0.55-1.02 [facility] Comment on above: Performed By: #### P HOS, MG, BMP #### [facility] [address] [address] [address] Noris Duenas EGFR-AF CAMBODIAN >60 Normal >=60 [facility] Comment on above: Performed By: #### P HOS, MG, BMP #### [facility] [address] [address] [address] Noris Duenas EGFR-NON AF CAMBODIAN >60 Normal >=60 [facility] Comment on above: Performed By: #### P HOS, MG, BMP #### [facility] [address] [address] [address] Noris Duenas Glucose [Mass/Vol] 95 mg/dL Normal 74-106 [facility] Comment on above: Performed By: #### P HOS, MG, BMP #### [facility] [address] [address] [address] Noris Duenas Potassium [Moles/Vol] 4.0 mmol/L Normal 3.5-5.1 [facility] Comment on above: Performed By: #### P HOS, MG, BMP #### [facility] [address] [address] [address] Noris Duenas Sodium [Moles/Vol] 140 mmol/L Normal 136-145 [facility] Comment on above: Performed By: #### P HOS, MG, BMP #### [facility] [address] [address] [address] Noris Duenas Urea nitrogen [Mass/Vol] 17.0 mg/dL Normal 7.0-18.0 [facility] Comment on above: Performed By: #### P HOS, MG, BMP #### [facility] [address] [address] [address] Noris Duenas Urea nitrogen/Creatinine [Mass ratio] 24.3 mg/mg Normal [facility] Comment on above: Performed By: #### P HOS, MG, BMP #### [facility] [address] [place] [address] Dr. Noris Duenas VITAMIN D 25 OHon 12-02-2022 VIT D 25-OH 76.9 ng/mL Normal [facility] Comment on above: Performed By: #### V ITAD #### [facility] [address] [place] [address] Dr. Noris Duenas VIT D RANGES SEE BELOW Normal [facility] Comment on above: Result Comment: <20 ng/mL Vit D deficient 20 - <30 ng/mL Vit D insufficient 30 - 100 ng/mL Vit D sufficient >100 ng/mL Potential Toxicity Performed By: #### V ITAD #### [facility] [address] [place] [address] Dr. Noris Duenas XR KNEE GENERAL 4V AP BOTH/P A BOTH/LAT/MERC LEFTon 06-09-2022 [facility] CBC AUTO DIFFon 05-18-2022 BASO # 0.0 103/ul Normal 0.0-0.1 [facility] Comment on above: Performed By: #### C BC #### [facility] [address] [place] [address] Dr. Noris Duenas Basophils/100 WBC (Bld) 0.8 % Normal 0.2-2.0 [facility] Comment on above: Performed By: #### C BC #### [facility] [address] [place] [address] Dr. Noris Duenas EO # 0.2 103/ul Normal 0.0-0.7 [facility] Comment on above: Performed By: #### C BC #### [facility] [address] [place] [address] Dr. Noris Duenas Eosinophils/100 WBC (Bld) 3.8 % Normal 0.9-7.0 [facility] Comment on above: Performed By: #### C BC #### [facility] [address] [place] [address] Dr. Noris Duenas Erythrocyte distribution width (RBC) [Ratio] 13.2 % Normal 11.0-15.0 [facility] Comment on above: Performed By: #### C BC #### [facility] [address] [place] [address] Dr. Noris Duenas Hematocrit (Bld) [Volume fraction] 41.2 % Normal 36.0-48.0 [facility] Comment on above: Performed By: #### C BC #### [facility] [address] [place] [address] Dr. Noris Duenas Hemoglobin (Bld) [Mass/Vol] 13.2 g/dL Normal 12.0-16.0 [facility] Comment on above: Performed By: #### C BC #### [facility] [address] [place] [address] Dr. Noris Duenas IG # 0.01 10e3/ul Normal 0.00-0.03 [facility] Comment on above: Performed By: #### C BC #### [facility] [address] [place] [address] Dr. Noris Duenas IG % 0.2 % Normal 0.0-0.5 [facility] Comment on above: Performed By: #### C BC #### [facility] [address] [place] [address] Dr. Noris Duenas LYMPH # 1.7 103/ul Normal 1.2-3.8 [facility] Comment on above: Performed By: #### C BC #### [facility] [address] [place] [address] Dr. Noris Duenas Lymphocytes/100 WBC (Bld) 35.0 % Normal 20.5-60.0 [facility] Comment on above: Performed By: #### C BC #### [facility] [address] [place] [address] Dr. Noris Duenas MANUAL DIFF REQ NO Normal [facility] Comment on above: Performed By: #### C BC #### [facility] [address] [place] [address] Dr. Noris Duenas MCH (RBC) [Entitic mass] 30.3 pg Normal 26.7-34.0 [facility] Comment on above: Performed By: #### C BC #### [facility] [address] [address] [address] Noris Duenas MCHC (RBC) [Mass/Vol] 32.0 g/dL Normal 29.9-35.2 [facility] Comment on above: Performed By: #### C BC #### [facility] [address] [place] [address] Dr. Noris Duenas MCV (RBC) [Entitic vol] 94.5 fL Normal 81.0-99.0 [facility] Comment on above: Performed By: #### C BC #### [facility] [address] [place] [address] Dr. Noris Duenas MONO # 0.6 103/ul Normal 0.3-0.8 [facility] Comment on above: Performed By: #### C BC #### [facility] [address] [place] [address] Dr. Noris Duenas Monocytes/100 WBC (Bld) 13.4 % Critically high 1.7-12. 0 [facility] Comment on above: Performed By: #### C BC #### [facility] [address] [place] [address] Dr. Noris Duenas NEUT # 2.2 103/ul Normal 1.4-6.5 [facility] Comment on above: Performed By: #### C BC #### [facility] [address] [place] [address] Dr. Noris Duenas Neutrophils/100 WBC (Bld) 46.8 % Normal 43.0-75.0 [facility] Comment on above: Performed By: #### C BC #### [facility] [address] [place] [address] Dr. Noris Duenas Platelet mean volume (Bld) [Entitic vol] 10.7 fL Normal 9.5-13.5 [facility] Comment on above: Performed By: #### C BC #### [facility] [address] [place] [address] Dr. Noris Duenas PLT 237 103/ul Normal 150-450 [facility] Comment on above: Performed By: #### C BC #### [facility] [address] [address] [address] Noris Duenas RBC 4.36 106/ul Normal 4.20-5.40 [facility] Comment on above: Performed By: #### C BC #### [facility] [address] [address] [address] Noris Duenas WBC 4.8 103/ul Normal 4.0-11.0 [facility] Comment on above: Performed By: #### C BC #### [facility] [address] [place] [address] Dr. Noris Duenas CRPon 05-18-2022 CRP [Mass/Vol] mg/L Normal <=1.0 [facility] Comment on above: Performed By: #### C MP, LIPID, CRP #### [facility] [address] [place] [address] Dr. Noris Duenas LIPID PROFILEon 05-18-2022 CHOL-HDL RATIO NORM SEE BELOW Normal [facility] Comment on above: Result Comment: 3.3 - 4.4 LOW RISK 4.4 - 7.1 AVERAGE RISK 7.1 - 11.0 MODERATE RISK >11.0 HIGH RISK Performed By: #### C MP, LIPID, CRP #### [facility] [address] [place] [address] Dr. Noris Duenas Cholesterol [Mass/Vol] 193 mg/dL Normal <=200 [facility] Comment on above: Performed By: #### C MP, LIPID, CRP #### [facility] [address] [place] [address] Dr. Noris Duenas Cholesterol in HDL [Mass/Vol] 56 mg/dL Normal 40-60 [facility] Comment on above: Performed By: #### C MP, LIPID, CRP #### [facility] [address] [place] [address] Dr. Noris Duenas Cholesterol in LDL [Mass/Vol] 105.6 mg/dL Normal [facility] Comment on above: Performed By: #### C MP, LIPID, CRP #### [facility] [address] [place] [address] Dr. Noris Duenas Cholesterol.total/Gissell sterol in HDL [Mass ratio] 3.4 {ratio} Normal [facility] Comment on above: Performed By: #### C MP, LIPID, CRP #### [facility] [address] [address] [address] Noris Duenas HDL NORMAL > or = 60 mg/dl - LO W CARDIOVASCULAR RISK <40 mg/dl - HIGH CARDIOVASCULAR RISK Normal [facility] Comment on above: Performed By: #### C MP, LIPID, CRP #### [facility] [address] [place] [address] Dr. Noris Duenas LDL CALC NORMAL SEE BELOW Normal [facility] Comment on above: Result Comment: <100 mg/dl OPTIMAL 100 - 129 mg/dl NEAR OR ABOVE OPTIMAL 130 - 159 mg/dl BORDERLINE HIGH 160 - 189 mg/dl HIGH >190 mg/dl VERY HIGH Performed By: #### C MP, LIPID, CRP #### [facility] [address] [place] [address] Dr. Noris Duenas Triglyceride [Mass/Vol] 157 mg/dL Critically high <=150 [facility] Comment on above: Performed By: #### C MP, LIPID, CRP #### [facility] [address] [place] [address] Dr. Noris Duenas VLDL CALC 31.4 mg/dL Normal [facility] Comment on above: Performed By: #### C MP, LIPID, CRP #### [facility] [address] [place] [address] Dr. Noris Duenas PROF 14(COMP METB)on 022 Albumin [Mass/Vol] 3.7 g/dL Normal 3.4-5.0 [facility] Comment on above: Performed By: #### C MP, LIPID, CRP #### [facility] [address] [place] [address] Dr. Noris Duenas Albumin/Globulin [Mass ratio] 1.0 {ratio} Normal [facility] Comment on above: Performed By: #### C MP, LIPID, CRP #### [facility] [address] [place] [address] Dr. Noris Duenas ALP [Catalytic activity/Vol] 60 U/L Normal 46-116 [facility] Comment on above: Performed By: #### C MP, LIPID, CRP #### [facility] [address] [place] [address] Dr. Noris Duenas ALT [Catalytic activity/Vol] 30 U/L Normal 14-59 [facility] Comment on above: Performed By: #### C MP, LIPID, CRP #### [facility] [address] [address] [address] Noris Duenas Anion gap [Moles/Vol] 10.4 mmol/L Normal [facility] Comment on above: Performed By: #### C MP, LIPID, CRP #### [facility] [address] [place] [address] Dr. Noris Duenas AST [Catalytic activity/Vol] 23 U/L Normal 15-37 [facility] Comment on above: Performed By: #### C MP, LIPID, CRP #### [facility] [address] [place] [address] Dr. Noris Duensa Bilirubin [Mass/Vol] 0.3 mg/dL Normal 0.2-1.0 [facility] Comment on above: Performed By: #### C MP, LIPID, CRP #### [facility] [address] [place] [address] Dr. Noris Duenas Calcium [Mass/Vol] 9.4 mg/dL Normal 8.5-10.1 [facility] Comment on above: Performed By: #### C MP, LIPID, CRP #### [facility] [address] [place] [address] Dr. Noris Duenas Chloride [Moles/Vol] 103 mmol/L Normal 98-107 [facility] Comment on above: Performed By: #### C MP, LIPID, CRP #### [facility] [address] [place] [address] Dr. Noris Duenas CO2 [Moles/Vol] 27.7 mmol/L Normal 21.0-32.0 [facility] Comment on above: Performed By: #### C MP, LIPID, CRP #### [facility] [address] [place] [address] Dr. Noris Duenas Creatinine [Mass/Vol] 0.91 mg/dL Normal 0.55-1.02 [facility] Comment on above: Performed By: #### C MP, LIPID, CRP #### [facility] [address] [address] [address] Noris Duenas EGFR-AF CAMBODIAN >60 Normal >=60 [facility] Comment on above: Performed By: #### C MP, LIPID, CRP #### [facility] [address] [address] [address] Noris Duenas EGFR-NON AF CAMBODIAN >60 Normal >=60 [facility] Comment on above: Performed By: #### C MP, LIPID, CRP #### [facility] [address] [address] [address] Noris Duenas Globulin (S) [Mass/Vol] 3.7 g/dL Normal [facility] Comment on above: Performed By: #### C MP, LIPID, CRP #### [facility] [address] [address] [address] Noris Duenas Glucose [Mass/Vol] 101 mg/dL Normal 74-106 [facility] Comment on above: Performed By: #### C MP, LIPID, CRP #### [facility] [address] [address] [address] Noris Duenas Potassium [Moles/Vol] 4.1 mmol/L Normal 3.5-5.1 [facility] Comment on above: Performed By: #### C MP, LIPID, CRP #### [facility] [address] [address] [address] Noris Duenas Protein [Mass/Vol] 7.4 g/dL Normal 6.4-8.2 [facility] Comment on above: Performed By: #### C MP, LIPID, CRP #### [facility] [address] [address] [address] Noris Duenas Sodium [Moles/Vol] 137 mmol/L Normal 136-145 [facility] Comment on above: Performed By: #### C MP, LIPID, CRP #### [facility] [address] [place], [place] [address] Dr. Noris Duenas Urea nitrogen [Mass/Vol] 19.0 mg/dL Critically high 7.0-18.0 [facility] Comment on above: Performed By: #### C MP, LIPID, CRP #### [facility] [address] [place], [place] [address] Dr. Noris Duenas Urea nitrogen/Creatinine [Mass ratio] 20.9 mg/mg Normal [facility] Comment on above: Performed By: #### C MP, LIPID, CRP #### [facility] [address] [place], [place] [address] Dr. Noris Duenas [facility] 32 mm/hr Critically high <=30 [facility] Comment on above: Performed By: #### S EDR ####[facility] [address] [place], [place] [address]IdDr. Noris Duenas Covid-19 PCR (CVDTB)on 01-28 SARS-CoV-2 (COVID-19) RNA EUSEBIO+probe Ql (Unsp spec) Not detected Normal NOT DETECTED [facility] Comment on above: Result Comment: This test is not yet approved or cleared by the [place] FDA. When there are no FDA-approved or cleared tests available, and other criteria are met, FDA can make tests available under an emergency access mechanism called an Emergency Use Authorization (EUA). The EUA for this test is supported by the Quirk Sander of Health and Human Service's (HHS's) declaration [...] consistent with SARS-CoV-2. Performed By: #### C VDTBH #### [facility] [address] [address] [address] Noris Duenas No Panel Information [facility] Vital Signs Date Time Vital Sign Value Performing Clinician Facility 05-15-2024 13:39-0400 Body height 160.02 cm MD Tiffanie Johnson Work Phone: [facility] 05-15-2024 13:39-0400 Body mass index (BMI) [Ratio] 24.4 kg/m2 MD Tiffanie Johnson Work Phone: [facility] 05-15-2024 13:39-0400 Body weight 62.59 kg MD Tiffanie Johnson Work Phone: [facility] 05-15-2024 13:39-0400 Diastolic blood pressure 76 mm[Hg] MD Tiffanie Johnson Work Phone: [facility] 05-15-2024 13:39-0400 Heart rate 61 /min MD Tiffanie Johnson Work Phone: [facility] 05-15-2024 13:39-0400 Respiratory rate 12 /min MD Tiffanie Johnson Work Phone: [facility] 05-15-2024 13:39-0400 Systolic blood pressure 111 mm[Hg] MD Tiffanie Johnson Work Phone: [facility] 07-27-2023 09:30-0500 Body height 160.02 cm Tiffanie Johnson Other [facility] [employer] Other 07-27-2023 09:30-0500 Body mass index (BMI) [Ratio] 23.95 kg/m2 Tiffanie Johnson Other [facility] [employer] Other 07-27-2023 09:30-0500 Body weight 61.33 kg Tiffanie Johnson Other [facility] [employer] Other 07-27-2023 09:30-0500 Diastolic blood pressure 77 mm[Hg] Tiffanie Johnson Other [facility] [employer] Other 07-27-2023 09:30-0500 Systolic blood pressure 130 mm[Hg] Tiffanie Johnson Other [facility] [employer] Other Encounters Encounter Date Encounter Type Care Provider Facility Start: 05-15-2024 End: 05-15-2024 ambulatory MD Tiffanie Johnson Work Phone: [facility] Work Phone: Start: 05-15-2024 End: 05-15-2024 Encounter for general adult medical examination without abnormal findings MD Tiffanie Johnson Work Phone: [facility] Start: 05-15-2024 End: 05-15-2024 Patient encounter procedure MD Tiffanie Johnson Work Phone: [facility] Work Phone: Start: 05-12-2024 Patient encounter status MD Sravanthi Johnson Work Phone: [facility] Start: 02-15-2024 End: 02-15-2024 Patient encounter procedure MD Tiffanie Johnson Work Phone: [facility] [address] Work Phone: Start: 02-15-2024 End: 02-15-2024 ambulatory MD Tiffanie Johnson Work Phone: [facility] Work Phone: Start: 01-17-2024 Non-patient / Non-visit MD Tonya Johnson Work Phone: [facility] Work Phone: Start: 01-17-2024 End: 01-17-2024 Patient encounter procedure MD Tiffanie Johnson Work Phone: [facility] [address] Work Phone: Start: 01-17-2024 End: 01-17-2024 ambulatory MD Tiffanie Johnson Work Phone: [facility] Work Phone: Start: 10-29-2023 End: 10-29-2023 ambulatory Carmel Ford RT(R) Radiology Comment on above: Radiology XR Start: 10-29-2023 End: 10-29-2023 Patient encounter procedure Carmel Ford RT(R) [facility] Comment on above: Primary osteoarthrit is of left knee (Primary Dx); It band syndrome, left Start: 10-29-2023 End: 10-29-2023 Subsequent hospital visit by physician Maryjo Cole 1 Work Phone: Radiology Comment on above: Primary osteoarthrit is of left knee [M17.12] Start: 08-04-2023 End: 08-04-2023 ambulatory Tiffanie Alex Other [facility] Other Start: 08-04-2023 Telephone encounter Tiffanie Alex [facility] Start: 07-27-2023 End: 07-27-2023 ambulatory Tiffanie Johnson Other [facility] Other Start: 07-27-2023 Encounter for genera l adult medical examination without abnormal findings Tiffaniemercedes Johnson [facility] Start: 07-27-2023 Periodic preventive med est patient 40-64yrs Tiffanie Johnson [facility] Start: 03-03-2023 End: 03-03-2023 ambulatory GARRISON LEE Facility:[facility] Start: 03-03-2023 End: 03-03-2023 Patient encounter procedure Garrison Lee PA-C Work Phone: Orthopaedics Comment on above: Primary osteoarthrit is of left knee (Primary Dx) Start: 01-14-2023 ambulatory ANALISA FARIA Facilit y:[facility] Start: 12-02-2022 End: 12-03-[address] DONALD ORTIZ Facility:[facility] Start: 06-09-2022 End: 06-09-2022 Patient encounter procedure Garrison Lee PA-C Work Phone: Orthopaedics Comment on above: Primary osteoarthrit is of left knee (Primary Dx) Start: 06-02-2022 End: 06-03-2022 ambulatory ANALISA FARIA Facility:[facility] Start: 05-19-2022 Encounter for genera l adult medical examination without abnormal findings DR TIFFANIE JOHNSON [facility] Start: 05-18-2022 End: 05-19-[address] TIFFANIE JOHNSON Facility:[facility] Start: 05-18-2022 End: 05-19-2022 Encounter for general adult medical examination without abnormal findings DR TIFFANIE JOHNSON Facility:[facility] Start: 02-07-2022 End: 02-08-[address] TIFFANIE JOHNSON Facility:[facility] Start: 12-01-2021 End: 12-01-2021 Patient encounter procedure Garrison Mychal PA-C Work Phone: Orthopaedics Comment on above: Primary osteoarthrit is of left knee (Primary Dx) Procedures Date Procedure Procedure Detail Performing Clinician Start: 02-15-2024 Plain X-ray of alondra santana hands MD Tiffanie Johnson Work Phone: Start: 10-29-2023 Radiologic exam knee complete 4/more views Garrison Mychal PA-C Work Phone: Start: 03-03-2023 Arthrocentesis aspir &/inj major jt/bursa w/o us Garrison Mychal PA-C Work Phone: Start: 06-09-2022 Arthrocentesis aspir &/inj major jt/bursa w/o us Garrison Mychal PA-C Work Phone: Start: 12-01-2021 Arthrocentesis aspir &/inj major jt/bursa w/o us Garrison Mychal PA-C Work Phone: Plan of Treatment Date Care Activity Detail Author Start: 04-30-2024 Covid-19 Vaccine () Covid-19 Vaccine () [facility] Start: 04-30-2024 Influenza vaccination Influenza Vaccine (#1) [facility] Start: 01-17-2024 [facility] Start: 08-30-2023 Depression Assessment Depression Assessment [facility] Start: 04-30-2023 Influenza vaccination [facility] Start: 08-30-2022 DEPRESSION ASSESSMENT DEPRESSION ASSESSMENT [facility] Start: 04-30-2022 Influenza vaccination [facility] Start: 08-30-2021 DEPRESSION ASSESSMENT DEPRESSION ASSESSMENT [facility] Start: 2020 RSV Vaccine (1 - 1-dose 60+ series) RSV Vaccine (1 - 1-dose 60+ series) [facility] Start: 2010 SHINGRIX VACCINE (1 of 2) SHINGRIX VACCINE (1 of 2) [facility] Start: 2005 COLOGUARD (FIT-DNA) COLOGUARD (FIT-DNA) [facility] Start: 2005 Colonoscopy COLONOSCOPY [facility] Start: 2005 COLORECTAL CANCER SCREENING COLORECTAL CANCER SCREENING [facility] Start: [address] COLONOGRAPHY [facility] Start: 2005 DIABETES SCREEN DIABETES SCREEN [facility] Start: 2005 Diabetes Screening Diabetes Screening [facility] Start: 2005 FECAL OCCULT BLOOD FECAL OCCULT BLOOD [facility] Start: 2005 Lipid panel Lipid Screening [facility] Start: 2005 LIPID SCREEN LIPID SCREEN [facility] Start: 2005 Screening for malignant neoplasm of colon [facility] Start: 2005 SIGMOIDOSCOPY SIGMOIDOSCOPY [facility] Start: 2000 Mammography MAMMOGRAM [facility] Start: 2000 Screening for malignant neoplasm of breast Mammogram Screening [facility] Start: 1990 HPV TESTING HPV TESTING [facility] Start: 1990 Screening for malignant neoplasm of cervix HPV Testing [facility] Start: 1981 PAP TESTING PAP TESTING [facility] Start: 1981 Screening for malignant neoplasm of cervix [facility] Start: 1979 Urine microalbumin profile [facility] Start: 1978 Anxiety Screening Anxiety Screening [facility] Start: 1978 Depression Screening Depression Screening [facility] Start: 1978 HEPATITIS C SCREENING HEPATITIS C SCREENING [facility] Start: 1978 Hepatitis C screening Hepatitis C Screening [facility] Start: 1978 HIV SCREENING HIV SCREENING [facility] Start: 1978 HIV screening HIV Screening [facility] Start: 1972 Adult depression screening assessment DEPRESSION SCREENING [facility] Start: 1965 COVID-19 VACCINE (1) COVID-19 VACCINE (1) [facility] Start: 01-10-1961 COVID-19 VACCINE (#1) COVID-19 VACCINE (#1) [facility] Comprehensive metabo lic 2000 panel - Serum or Plasma [facility] MG Breast - bilatera l Screening [facility] Immunizations Immunization Date Immunization Notes Care Provider Fa heather 10-10-2020 zoster vaccine, live Tiffanie Johnson Other [facility] 07-08-2020 influenza virus vaccine, split virus (incl. purified surface antigen) Tiffanie Alex Other [facility] Other 07-08-2020 zoster vaccine, live Tiffanie Johnson Other [facility] 07-08-2020 influenza virus vaccine, unspecified formulation Carmel Ford RT(R) [facility] Payers Date Payer Category Payer Self-pay [id number] 2015 Private Health Insurance [employer] PPO [id number] 2015-Present [id number] [place] [id number] O [id number] 2015 Private Health Insurance [id number] 1960 Unknown [id number] 1960 Unknown [id number] 1960 Unknown [id number] 1960 Unknown [id number] 1960 Unknown [id number] 1959 Private Health Insurance [facility] [id number] 1959 Private Health Insurance [facility] [id number] Unknown [id number] Unknown [id number] Social History Date Type Detail Facility [facility] Start: 1960 Sex Assigned At Not on file C [facility] Start: 11-21-2021 End: 06-09-2022 Exposure to SARS-CoV-2 (event) Not sure [facility] Start: 03-03-2023 End: 10-26-2023 Sex Assigned At [facility] Start: 03-03-2023 End: 10-26-2023 History of Social function [facility] Adult Depression Screening Assessment 3 [facility] Start: 1960 Sex Assigned At Female F [facility] Start: 05-15-2024 [facility] Never [facility] (finding) [facility] Clinical Notes 12-01-2021 to 10-29-2023 Garrison Lee PA-C - 10/29/2023 11:55 AM Carmel Melara RT(R) - 10/29/2023 11:34 AM EST Note Date & Type Note Facility 10-29-2023 Note HNO ID: [id number] Author: GARRISON LEE PA-C Service: ? Author Type: [facility] [employer] Applications Specialist Type: Progress Notes Filed: 10/29/2023 12:22 Note Text: This document has been created with the use of voice recognition technology. It may contain inaccuracies: misspellings, inaccurate syntax or word sense that escaped review. CHIEF COMPLAINT: Joselito Carver is a 63 year old female who presents today for follow up of left knee. HISTORY OF PRESENT ILLNESS: PAIN EVALUATION 10/26/2023 1040 10/29/2023 1137 Pain Level: 6 7 Pain Location: Knee-Left Knee-Left Description: Aching;Sharp Sharp;Aching Duration Amount of Time: 1 4 Duration Units: Hours Days Frequency: Intermittent Intermittent Intervention/Comfort measure: Medication;Reposition;Cold Medication;Cold ALEVE Comments: Pain occurs after extended physical activity. Yesterday I walked 7.5 miles at a 13:50/mile pace. Pain started at about the long term point and increased until I was finished. The knee was difficult to bend. Went home and iced it and took alleve. This helped -- HISTORY: Joselito Carver is here for follow up of complaints of arthritis flare of the left knee. She states most of her pain is posterior. She has severe medial compartment degenerative change. She has a race coming up soon in [facility] where she will be power walking a half-marathon. She is looking for a cortisone injection to help her through the race. Also reports some lateral knee pain as well- worse with activity. No other musculoskeletal complaints ROS: REVIEW OF SYSTEMS: Constitutional: patient denies any recent fever or significant change in weight Cardiovascular: patient denies any chest pain at rest Respiratory: patient denies any shortness of breath or cough Gastrointestinal: patient denies any current abdominal discomfort Integumentary: patient denies any recent skin changes Musculoskeletal: as noted in the HPI Neurologic: as noted in the HPI Endocrine: patient denies a current diagnosis of [...] the exam table. left knee exam no effusion Neutral Alignment Active 0 extension, flexion 120. central patellar tracking/ moderate patellofemoral crepitation No Pain with patellar compression, positive Pain with palpating medial compartment, no Pain with palpating lateral compartment. Pain at distal ITB stable to varus and valgus stresses. Carline is negative stable Anterior/posterior drawer. negative McMurrays No pain with palpation of pes anserine bursa Calf soft and nontender. Hip exam- negative log roll, preserved ER/IR, no pain with axial loading NV intact L3-S1 with 2+ DP pulse. RADIOGRAPHS: none IMPRESSION: Encounter Diagnosis ICD-10-CM 1. Primary osteoarthritis of left knee M17.12 XR KNEE GENERAL 4V AP BOTH/PA BOTH/LAT/MERC LEFT 2. It band syndrome, left M76.32 Procedures Plan: Follow-up left knee. Pain at the distal IT band and with her activity level would be consistent with IT band friction syndrome. Discussed stretching techniques. She understands she has severe arthritis in the knee. I injected this again today with cortisone intra-articularly and this was well-tolerated. Discussed appropriate intervals between injections. Discussed potential activity modification. She will see how she does with her upcoming race. May follow-up as needed Garrison Lee PA-C [facility] 10-29-2023 Note HNO ID: [id number] Author: CARMEL FORD RT(R) Service: ? Author Type: Technologist Type: Progress Notes Filed: 10/29/2023 11:34 Note Text: Radiology Service Progress Note PATIENT NAME: Joselito Carver DATE OF SERVICE: October 29, 2023 TIME: 11:34 AM PATIENT IDENTITY VERIFICATION COMPLETED USING TWO (2) IDENTIFIERS: Name and Date of confirmed by patient verbally. FALL SCREENING: Has the patient had 2 falls in the last year or 1 fall with injury or currently using an Ambulatory Assistive Device (Walker, Cane, Wheelchair, Crutches, etc.)? No PATIENT GENDER DATA: Female. status: : No status: N/A PATIENT RELEVANT IMPLANT DATA REVIEWED: Not Applicable PATIENT PRESENTS WITH AN IMPLANTABLE OR ATTACHED REFERENCE DATA EXPERT: No RADIOLOGY DEPARTMENT: General X-ray: Exam(s) Completed: Lower Extremity X-Ray(s): Knee, AP / Lat / Tunne / Merchant Left and Wt. Bearing PERIPHERAL IV DATA: Not applicable SIGNED BY: RT Angela(R) October 29, 2023 11:34 AM [facility] 10-29-2023 History of Present illness Narrative Images from the original note were not included. This document has been created with the use of voice recognition technology. It may contain inaccuracies: misspellings, inaccurate syntax or word sense that escaped review. CHIEF COMPLAINT: Joselito Carver is a 63 year old female who presents today for follow up of left knee. HISTORY OF PRESENT ILLNESS: PAIN EVALUATION 10/26/2023 1040 10/29/2023 1137 Pain Level: 6 7 Pain Location: Knee-Left Knee-Left Description: Aching;Sharp Sharp;Aching Duration Amount of Time: 1 4 Duration Units: Hours Days Frequency: Intermittent Intermittent Intervention/Comfort measure: Medication;Reposition;Cold Medication;Cold ALEVE Comments: Pain occurs after extended physical activity. Yesterday I walked 7.5 miles at a 13:50/mile pace. Pain started at about the long term point and increased until I was finished. The knee was difficult to bend. Went home and iced it and took alleve. This helped -- HISTORY: Joselito Carver is here for follow up of complaints of arthritis flare of the left knee. She states most of her pain is posterior. She has severe medial compartment degenerative change. She has a race coming up soon in [facility] where she will be power walking a half-marathon. She is looking for a cortisone injection to help her through the race. Also reports some lateral knee pain as well- worse with activity. No other musculoskeletal complaints ROS: REVIEW OF SYSTEMS: Constitutional: patient denies any recent fever or significant change in weight Cardiovascular: patient denies any chest pain at rest Respiratory: patient denies any shortness of breath or cough Gastrointestinal: patient denies any current abdominal discomfort Integumentary: patient denies any recent skin changes Musculoskeletal: as noted in the HPI Neurologic: as noted in the HPI Endocrine: patient denies a current diagnosis of [...] the exam table. left knee exam no effusion Neutral Alignment Active 0 extension, flexion 120. central patellar tracking/ moderate patellofemoral crepitation No Pain with patellar compression, positive Pain with palpating medial compartment, no Pain with palpating lateral compartment. Pain at distal ITB stable to varus and valgus stresses. Carline is negative stable Anterior/posterior drawer. negative McMurrays No pain with palpation of pes anserine bursa Calf soft and nontender. Hip exam- negative log roll, preserved ER/IR, no pain with axial loading NV intact L3-S1 with 2+ DP pulse. RADIOGRAPHS: none IMPRESSION: Encounter Diagnosis ICD-10-CM 1. Primary osteoarthritis of left knee M17.12 XR KNEE GENERAL 4V AP BOTH/PA BOTH/LAT/MERC LEFT 2. It band syndrome, left M76.32 Procedures Plan: Follow-up left knee. Pain at the distal IT band and with her activity level would be consistent with IT band friction syndrome. Discussed stretching techniques. She understands she has severe arthritis in the knee. I injected this again today with cortisone intra-articularly and this was well-tolerated. Discussed appropriate intervals between injections. Discussed potential activity modification. She will see how she does with her upcoming race. May follow-up as needed Garrison Lee PA-C documented in this encounter [facility] 10-29-2023 History of Present illness Narrative Radiology Service Progress Note PATIENT NAME: Joselito Carver DATE OF SERVICE: October 29, 2023 TIME: 11:34 AM PATIENT IDENTITY VERIFICATION COMPLETED USING TWO (2) IDENTIFIERS: Name and Date of confirmed by patient verbally. FALL SCREENING: Has the patient had 2 falls in the last year or 1 fall with injury or currently using an Ambulatory Assistive Device (Walker, Cane, Wheelchair, Crutches, etc.)? No PATIENT GENDER DATA: Female. status: : No status: N/A PATIENT RELEVANT IMPLANT DATA REVIEWED: Not Applicable PATIENT PRESENTS WITH AN IMPLANTABLE OR ATTACHED REFERENCE DATA EXPERT: No RADIOLOGY DEPARTMENT: General X-ray: Exam(s) Completed: Lower Extremity X-Ray(s): Knee, AP / Lat / Tunne / Merchant Left and Wt. Bearing PERIPHERAL IV DATA: Not applicable SIGNED BY: RT Anglea(R) October 29, 2023 11:34 AM documented in this encounter [facility] 07-27-2023 Evaluation note Encounter Date Diagnosis Assessment [...] (ICD-10 - M54.2) Order for PT handwritten ABB Other 07-05-2023 NoteHNO ID: [id number] Author: Garrison Lee PA-C Service: ? 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 These activities seem to flareup the [...] knee joint Informed Consent Consent Obtained: Written [place] Protocol A moment to CARE was completed. [...] race. We will follow-up as symptoms dictate. [facility] History of Present illness Narrative* Garrison Lee [...] remains very active and does long distance [place] races. These activities seem to flareup the [...] knee joint Informed Consent Consent Obtained: Written [place] Protocol A moment to CARE was completed. [...] dictate. Garrison Lee PA-C [facility] History of Present illness Narrative* Garrison Lee [...] knee joint Informed Consent Consent Obtained: Written [place] Protocol A moment to CARE was completed. [...] needed Garrison Lee PA-C [facility] NotePROCEDURE: XR ANKLE RT MIN 3 VIEWS, [...] Electronically authenticated by: HOMERO DONALDSON Date: 2022-06-02 12:[facility]10-04-2022 NotePROCEDURE: XR ANKLE RT MIN 3 VIEWS, [...] Electronically authenticated by: HOMERO DONALDSON Date: 2022-06-02 12:[facility]04-04-2022 History of Present illness Narrative* Garrison Lee [...] knee joint Informed Consent Consent Obtained: Written [place] Protocol A moment to CARE was completed. [...] needed. Garrison Lee PA-C [facility] Diagnosis Primary osteoarthritis of left knee- Primary Primary localized osteoarthrosis, lower leg documented in this [facility]* Diagnosis Primary osteoarthritis of left knee- Primary Primary localized osteoarthrosis, lower leg documented [facility] this [facility]* Diagnosis Primary osteoarthritis of left knee- Primary Primary localized osteoarthrosis, lower leg documented in this encounter [facility] noteNo [employer] Other Evaluation note* Diagnosis Primary osteoarthritis of left knee- Primary Primary localized osteoarthrosis, lower leg It band syndrome, left documented in this encounter [facility] noteNo assessment information [facility]East [facility] Work Phone: Evaluation note* Diagnosis Primary osteoarthritis of left knee Primary localized osteoarthrosis, lower leg documented in this encounter [facility] note* Diagnosis Onset Date Resolution Status GERD (gastroesophageal reflux disease) acute Hypercholesterolemia acute Osteoporosis acute Screening for colon cancer a cute Screening mammogram for breast cancer acute Wellness examination acute [facility] Work Phone: History general Narrative - Reported* Type Description Date Medical History GERD without esophagitis Medical History Onychomycosis Medical History Low back pain with radiation Medical History Muscular pain Medical History Hyperlipidemia, unspecified Medical History Osteoporosis Medical History Plantar Fasciitis Surgical History Rhinoplasty Surgical History DEXA 10/16 hip - 2.8 Surgical History Tonsillectomy Hospitalization History SEE SURGICAL HX ABB Other Reason for referral (narrative)* Diagnostic Procedure Only (Routine) - Closed Specialty Diagnoses / Procedures Referred By Becca colvin Referred To Contact XR IMAGING Diagnoses Primary osteoarthritis of left knee Procedures XR KNEE GENERAL 4V AP BOTH/PA BOTH/LAT/MERC LEFT RADIOLOGIC EXAM KNEE COMPLETE 4/MORE VIEWS Garrison Lee PA-C [address] [place] [address] Xr Imaging Referral ID Status Reason Start Date Expiration Date V isits Requested Visits Authorized [id number] Closed Auto-Generate d Referral 06/05/2022 07/05/2023 1 1 [facility] for referral (narrative)* Diagnostic Procedure Only (Routine) - Closed Specialty Diagnoses / Procedures Referred By Contac t Referred To Contact XR IMAGING Diagnoses Primary osteoarthritis of left knee Procedures XR KNEE GENERAL 4V AP BOTH/PA BOTH/LAT/MERC LEFT RADIOLOGIC EXAM KNEE COMPLETE 4/MORE VIEWS Garrison Lee PA-C [address] [place] [address] [place] [address] Referral ID Status Reason Start Date Expiration Date V isits Requested Visits Authorized [id number] Closed Auto-Generate d Referral 10/26/2023 11/24/2024 1 1 [facility] for referral (narrative)* Diagnostic Procedure Only (Routine) - Closed Specialty Diagnoses / Procedures Referred By Contac t Referred To Contact XR IMAGING Diagnoses Primary osteoarthritis of left knee Procedures XR KNEE GENERAL 4V AP BOTH/PA BOTH/LAT/MERC LEFT RADIOLOGIC EXAM KNEE COMPLETE 4/MORE VIEWS Garrison Lee PA-C [address] [place] [address] [place] [address] Referral ID Status Reason Start Date Expiration Date V isits Requested Visits Authorized [id number] Closed Auto-Generate d Referral 10/26/2023 11/24/2024 1 1 [facility] for visit Narrative* Diagnostic Procedure Only (Routine) - Closed Specialty Diagnoses / Procedures Referred By Contac t Referred To Contact XR IMAGING Diagnoses Primary osteoarthritis of left knee Procedures XR KNEE GENERAL 4V AP BOTH/PA BOTH/LAT/MERC LEFT RADIOLOGIC EXAM KNEE COMPLETE 4/MORE VIEWS Garrison Lee PA-C [address] [place] [address] [place] [address] Referral ID Status Reason Start Date Expiration Date V isits Requested Visits Authorized [id number] Closed Auto-Generate d Referral 10/26/2023 11/24/2024 1 1 [facility] Medications Administered Section Inactive Administered Medications - [...] mg Knee, Left Summary Purpose Family History Relationship Condition Age at Onset Recorded Date/T cee father Heart disease Unknown family member Family history of other condition Unknow n Not Specified Malignant neoplasm Unknown sister Malignant neoplasm Unknown Relationship Condition Age at Onset Recorded Date/T cee father Heart disease Unknown family member Family history of other condition Unknow n mother Malignant neoplasm Unknown sister Malignant neoplasm Unknown brother Diabetes mellitus Unknown Malignant neoplasm Unknown Hypertension Unknown Osteoarthritis Unknown brother Heart disease Unknown Squamous cell carcinoma Unknown Age related osteoporosis Unknown Rheumatoid arthritis Unknown sister Heart disease Unknown mother Alzheimer's dementia Unknown Colitis Unknown Parkinson's disease Unknown Advance Directives Advance Directive Response Recorded Date/ Time Advance Directives No March 14 4:42pm Chief Complaint and Reason for Visit Chief Complaint Amb Documentation Chief Complaint M25.50 M89.90 Hand p ain Amb Documentation Chief Complaint HAND PAIN/BILAT wellness, med refill Reason for Visit GERD (gastroesophage al reflux disease) Hypercholesterolemia Osteoporosis Screening for colon cancer Screening mammogram for breast cancer Wellness examination Additional Source Comments Source Comments (unrecognize d section and content) In the event this informatio n is protected by the Federal Confidentiality of Alcohol and Drug Abuse Patient Records regulations: The Federal rules restrict any use of the information to criminally investigate or prosecute any alcohol or drug abuse patient.[facility] the event this information is protected by the Federal Confidentiality of Alcohol and Drug Abuse Patient Records regulations: The Federal rules restrict any use of the information to criminally investigate or prosecute any alcohol or drug abuse patient.[facility] the event this information is protected by the Federal Confidentiality of Alcohol and Drug Abuse Patient Records regulations: The Federal rules restrict any use of the information to criminally investigate or prosecute any alcohol or drug abuse patient.[facility] the event this information is protected by the Federal Confidentiality of Alcohol and Drug Abuse Patient Records regulations: The Federal rules restrict any use of the information to criminally investigate or prosecute any alcohol or drug abuse patient.[facility] the event this information is protected by the Federal Confidentiality of Alcohol and Drug Abuse Patient Records regulations: The Federal rules restrict any use of the information to criminally investigate or prosecute any alcohol or drug abuse patient.[facility] the event this information is protected by the Federal Confidentiality of Alcohol and Drug Abuse Patient Records regulations: The Federal rules restrict any use of the information to criminally investigate or prosecute any alcohol or drug abuse patient.[facility] Reason for Visit (unrecogniz ed section and content) Reason Comments Established Patient Injections Swelling Reason Comments Established Patient Reason Comments Injections Reason Comments Radiology XR Reason Comments Follow Up INFORMATION SOURCE (unrecogn ized section and content) DATE CREATED AUTHOR 01/09/2023 Chung padilla DATE CREATED AUTHOR AUTHOR'S ORGANIZ ATION 10/31/2023 [facility] DATE CREATED AUTHOR AUTHOR'S ORGANIZ ATION 02/27/2024 [facility] Care Teams (unrecognized sec tion and content) Team Status: Active Member Role Status Dates Tiffanie Johnson MD Primary Care Provider Active Team Status: Inactive Member Role Status Dates Tiffanie Johnson MD Primary Care Provider Active Start: January 17, 2024 End: January 17, 2024 Vlad Gallagher MD Attending Provider Active St art: January 17, 2024 End: January 17, 2024 Team Status: Active Member Role Status Dates Tiffanie Johnson MD Primary Care Provider Active Start: January 17, 2024 WOOD Foley Attending Provider Active Start : January 17, 2024 Team Status: Inactive Member Role Status Dates Tiffanie Johnson MD Primary Care Provider Active Start: February 15, 2024 End: February 15, 2024 Vlad Gallagher MD Attending Provider Active St art: February 15, 2024 End: February 15, 2024 Team Status: Inactive Member Role Status Dates Tiffanie Johnson MD Primary Care Provider Active Start: May 15, 2024 End: May 15, 2024 Piyush Bui DO Attending Provider Active Sta rt: May 15, 2024 End: May 15, 2024 Goals (unrecognized section and content) Goals may be documented in a n alternate section FOR RECORDS PERTAINING TO PATIENTS WHO ARE [...] BE BASED ON THE PRIMARY CLINICAL RECORDS. [employer] provides no warranty or guarantee of the accuracy or completeness of information in this document.
[2024-05-17 10:14] LABS: Basophils Percent Auto 0.3 % (0.2-2.0); Eosinophils Absolute Auto 0.2 10^3/uL (0.0-0.7); Eosinophils Percent Auto 3.5 % (0.9-7.0); Hematocrit 36.8 % (36.0-48.0); Hemoglobin 12.2 g/dL (12.0-16.0); Immature Granulocytes Abs Auto 0.01 10^3/uL (0.00-0.03); Immature Granulocytes Pct Auto 0.2 % (0.0-0.5); Lymphocytes Absolute Auto 1.8 10^3/uL (1.2-3.8); Lymphocytes Percent Auto 29.9 % (20.5-60.0); Mean Corpuscular HGB Conc 33.2 g/dL (29.9-35.2); Mean Corpuscular Volume 93.6 fL (81.0-99.0); Mean Platelet Volume 10.7 fL (9.5-13.5); Monocytes Absolute Auto 0.6 10^3/uL (0.3-0.8); Monocytes Percent Auto 10.6 % (1.7-12.0); Neutrophils Absolute Auto 3.3 10^3/uL (1.4-6.5); Neutrophils Percent Auto 55.5 % (43.0-75.0); Platelet Count 256 10^3/uL (150-450); Red Blood Count 3.93 10^6/uL (4.20-5.40); Red Cell Distribution Width 13.2 % (11.0-15.0)
[2024-05-17 11:03] LABS: Alanine Aminotransferase 26 U/L (14-59); Albumin Globulin Ratio 0.9; Albumin Level 3.8 g/dL (3.4-5.0); Alkaline Phosphatase 78 U/L (46-116); Anion Gap 8.1; Aspartate Amino Transferase 29 U/L (15-37); BUN Creatinine Ratio 20.7; Bilirubin Total 0.5 mg/dL (0.2-1.0); Carbon Dioxide 28.5 mmol/L (21.0-32.0); Chloride 98 mmol/L (98-107); Chol HDL Ratio 2.7; Cholesterol 175 mg/dL (<=200); Estimated GFR (African America >60 (>=60); Estimated GFR (Non-African Ame >60 (>=60); Glucose 91 mg/dL (74-106); HDL Cholesterol 66 mg/dL (40-60); Potassium 3.6 mmol/L (3.5-5.1); Sodium 131 mmol/L (136-145); Thyroid Stimulating Hormone 3.293 uIU/mL (0.358-3.740); Total Protein 7.8 g/dL (6.4-8.2); Triglycerides 93 mg/dL (<=150); VLDL CHOLESTEROL 18.6 mg/dL
== END 2024-05-17 09:35 | disposition home or self-care (01) ==
LOC: MAMMO 09:34
PROVIDERS: PCP Family Medicine; Visit Provider Internal Medicine
DX: Z00.00 Encounter for general adult medical examination without abnormal findings (principal); Z12.31 Encounter for screening mammogram for malignant neoplasm of breast; Z80.3 Family history of malignant neoplasm of breast; Z80.52 Family history of malignant neoplasm of bladder; Z80.8 Family history of malignant neoplasm of other organs or systems
CPT/HCPCS: 36415; 77063; 77067; 80053; 80061; 84443; 85025

== ENCOUNTER 2024-07-25 11:30 | Outpatient (OUT) | payer OTHER, SELFPAY ==
--- OUTSIDE RECORDS SUMMARY | 2024-07-25 11:54 | XMS_ITS | CCD ---
Author Organization [facility] Care Team Providers Care Software Sales Name Role Phone Unavailable Primary Care Provider [...] Unavailable JOHNSON, DR TIFFANIE Perez Consulting Unavailable Unavailable Primary [...] Provider UnavailMD Tiffanie Silverio Primary Care Provider [phone] MD Vlad Gallagher Attending Provider Allergies Allergy Classification Reported Allergen(s) Allergy Type Date of Onset Reaction(s) Facility (2 sources) Non-steroidal anti-inflammato ry agent; Translations: [NSAIDS (NON-STEROIDAL ANTI-INFLAMMATO RY DRUG)] Drug Intolerance 09-13-19 Other: See Comments [facility] Work Phone: (7 sources) Non-steroidal anti-inflammato ry agent Drug Intolerance 09-13-19 Other: See Comments [facility] Work Phone: (2 sources) patient allergy list reviewed by nurse or physicia Propensity to adverse reactions 03-21-20 Comment:Done [email or web address] Other (2 sources) Allergies Reconciled Propensity to adverse reactions Unknown [email or web address] Other Medications Current Medications Medication Drug Class(es) Dates Sig (Normalized) Sig (Original) alendronic acid 70 mg oral tablet (8 sources) Bisphosphonate Start: 07-11-2018 take 1 tablet by mouth every week alendronate (FOSAMAX) 70 mg tablet Take 70 mg by mouth once each week. 4 07/11/2018 Active Comment on above: Take 70 mg by mouth once each week. Ascorbic Acid (8 sources) Vitamin C ascorbic acid (VITAMIN C ORAL) Take by mouth. Active ascorbic acid (V ITAMIN C ORAL) Take by mouth. 0 Active Comment on above: Take by mouth. atorvastatin 10 mg oral tablet (9 sources) HMG-CoA Reductase Inhibitor Start: 07-19-20 take 1 tablet by mouth once daily atorvastatin (LIPITOR) 10 mg tablet Take 10 mg by mouth once daily. 2 07/19/2018 Active Comment on above: Take 10 mg by mouth once daily. baclofen 10 mg oral tablet (10 sources) gamma-Aminobutyric Acid-ergic Agonist Start: 07-22-20 End: 05-15-20 24 baclofen (LIORESAL) 10 mg tablet Take 10 mg by mouth as needed. 4 07/22/2018 Active Comment on above: Take 10 mg by mouth as needed. caffeine 175 mg oral tablet (8 sources) Central Nervous System Stimulant, Methylxanthine CAFFEINE ORAL Take 175 mg by mouth. Active Comment on above: Take 175 mg by mouth . calcium citrate/vitamin D3 (CITRACAL + D ORAL) (8 sources) calcium citrate/vitamin D3 (CITRACAL + D ORAL) Take by mouth. Active calcium citrate/ vitamin D3 (CITRACAL + D ORAL) Take by mouth. 0 Active Comment on above: Take by mouth. citalopram 40 mg oral tablet (15 sources) Serotonin Reuptake Inhibitor Start: 01-25-2024 End: 04-24-2024 take 1 tablet by mouth once daily Citalopram Active 0 .ROUTE .COMPLEX 90 April 24, 2024 3:36pm Take 1 tablet by mouth once daily Start: 07-02-2018 End: 01-25-2024 take 1 tablet by mouth once daily citalopram (CELEXA) 40 mg tablet Take 40 mg by mouth once daily. 4 07/02/2018 Active Comment on above: Take 40 mg by mouth once daily. cyanocobalamin, vitamin B-12, (VITAMIN B-12 ORAL) (8 sources) cyanocobalamin, vitamin B-12, (VITAMIN B-12 ORAL) Take by mouth. Active cyanocobalamin, vitamin B-12, (VITAMIN B-12 ORAL) Take by mouth. 0 Active Comment on above: Take by mouth. denosumab (2 sources) RANK Ligand Inhibitor Start: 07-28-2022 Prolia 60MG/ML Prolia( 60MG/ML Subcutaneous ) Active -Hx Entry Subcutaneous for 0 Dr. Gallagher *Pick strength-form from [employer] for eRX* Jun, Active estradiol 0.1 mg/ml vaginal cream (17 sources) Estrogen Start: 01-17-2024 End: 04-10-2024 Estradiol [...] twice weekly for 0 *Pick strength-form from [employer]av[employer] for eRX* Jul, Active Start: 06-09-2018 estradiol (EST RACE) 0.01 % (0.1 mg/gram) vaginal cream Use 1 g vaginally twice a week. 3 06/09/2018 Active Comment on above: Use 1 g vaginally tw ice a week. flaxseed oil (OMEGA 3 ORAL) (8 sources) flaxseed oil (OM EGA 3 ORAL) Take by mouth. Active flaxseed oil (OM EGA 3 ORAL) Take by mouth. 0 Active Comment on above: Take by mouth. glucosamine/chondr tory A sod (OSTEO BI-FLEX ORAL) (8 sources) glucosamine/sandra dr tory Pulido sod (OSTEO BI-FLEX ORAL) Take by mouth. Active glucosamine/sandra dr tory Pulido sod (OSTEO BI-FLEX ORAL) Take by mouth. 0 Active Comment on above: Take by mouth. lidocaine hydrochloride 0.02 mg/mg topical gel (4 sources) Antiarrhythmic, Amide Local Anesthetic Start: 05-15-2024 Lidocaine Hcl Active 1 APPLIC TOPICAL Daily 30 90 May 15, 2024 12:00am Start: 03-03-2023 End: [...] alternative to lidocaine 2% gel...? *Reorder from [employer] for eRx and Interaction Alerts* Jun, Active Lidocaine-Hyalur Ac-Aloe-Col l (1 source) Start: 05-15-2024 Lidocaine-Hyal ur Ng-Btbl-Unqr Active 1 APPLIC TOPICAL Twice daily May 15, 2024 12:00am Magnesium (8 sources) Magnesium 250 mg tab Take 250 [...] mg by mouth once daily. MULTIVITAMIN ORAL (8 sources) MULTIVITAMIN ORA L Take by mouth. Active MULTIVITAMIN ORA L Take by mouth. 0 Active Comment on above: Take by mouth. 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 THERAPY] Onset: 12-11-2022 Episodic Other [...] related to travel; Translations: [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] Onset: 02-07-2022 Unclassified (1 source) [...] BI 2Von 02-15-2024 XR hand BI 2V [facility] [address] XRay Report Signed Patient: Joselito Carver MR#: [id number] 2 : 1960 Acct:[id number] Age/Sex: 63 / F ADM Date: 02/15/24 Loc: ICXD Room: Type: [facility] Attending Dr: Vlad Gallagher MD Copies to: [...] Sanjana Liao M.D.02/15/2024 4:19 PM Dictation Location: [place] [address] Transcribed By: ARUN 02/15/241618 Dictated By: Sanjana Liao MD 02/15/241616 Signed By: 02/15/24 161 Normal [facility] ESTUARDO Antinuclear Antibodieson 01-17-2024 Antinuclear Abs, IFA Positive Critically abnormal . [facility] Comment on above: Result Comment: Nega tive <1:80 Borderline 1:80 Positive >1:80 Performed By: #### T SH3, ESR, CRP, CBC, CMP, PTH, MG, PHOS #### [facility] [address] [place] [address] #### ESTUARDO #### [facility] , Note 1 Normal . [facility] Comment on above: Result Comment: Sonia monzon Potential Disease Association Homogeneous Systemic Lupus Erythematosus, Drug Induced Systemic Lupus Erythematosus, Chronic Autoimmune hepatitis, Juvenile Idiopathic Arthritis Speckled Sjogren Syndrome, Systemic Lupus Erythematosus, Subacute Cutaneous Lupus, Lupus, Congenital Heart Block, Mixed Connective Tissue Disease, Scleroderma-diffuse, Scleroderma-Autoimmune Myositis Overlap Syndrome, Systemic Lupus Drmfvpztklorc-Zbulvlmwqjn-Jhviamtlnc Myositis Overlap Syndrome, Systemic Autoimmune Rheumatic Disease, [...] Cytopenias, Linear Scleroderma, Antiphospholipid Syndrome Performed at: [address] [id number] Vat Packer: Haresh Obregon PhD, Phone: [phone] PERFORMED BY: [place] [address] PATHOLOGIST TECHNICAL SERVICE REPRESENTATIVE TIFFANIE PICKARD M.D. Performed By: #### T SH3, ESR, CRP, CBC, CMP, PTH, MG, PHOS #### [address] #### ESTUARDO #### [facility] , Speckled Pattern 1:160 High . [facility] Comment on above: Result Comment: ICAP nomenclature: AC-2,4,5,29 Performed By: #### T SH3, ESR, CRP, CBC, CMP, PTH, MG, PHOS #### [place] [address] [place] #### ESTUARDO #### [facility] , Alanine aminotransferase [En zymatic activity/volume] in Serum or PlasmaOrdered By: Vlad Gallagher on 01-17-2024 ALT [Catalytic activity/Vol] 21 U/L Normal 7-52 [facility] Comment on above: Performed By: #### T SH3, ESR, CRP, CBC, CMP, PTH, MG, PHOS #### [place] [address] [place] #### ESTUARDO #### [facility] , Albumin [Mass/volume] in Ser um or Plasma by Bromocresol green (BCG) dye binding methoOrdered By: Vlad Gallagher on 01-17-2024 Albumin BCG dye [Mass/Vol] 4.3 g/dL 3.5-5.7 [facility] Alkaline phosphatase [Enzyma tic activity/volume] in Serum or PlasmaOrdered By: Vlad Gallagher on 01-17-2024 ALP [Catalytic activity/Vol] 70 U/L Normal 34-104 [facility] Comment on above: Performed By: #### T SH3, ESR, CRP, CBC, CMP, PTH, MG, PHOS #### [place] [address] [place] #### ESTUARDO #### [facility] , Aspartate aminotransferase [ Enzymatic activity/volume] in Serum or PlasmaOrdered By: Vlad Gallagher on 01-17-2024 AST [Catalytic activity/Vol] 23 U/L Normal 13-39 [facility] Comment on above: Performed By: #### T SH3, ESR, CRP, CBC, CMP, PTH, MG, PHOS #### [place] [address] [place] #### ESTUARDO #### [facility] , Automated basophil %Ordered By: Vlad Gallagher on 01-17-2024 Basophils/100 WBC (Bld) 0.8 % Normal . [facility] Comment on above: Performed By: #### T SH3, ESR, CRP, CBC, CMP, PTH, MG, PHOS #### [address] #### ESTUARDO #### [facility] , Automated basophil countOrde red By: Vlad Gallagher on 01-17-2024 Basophils (Bld) [#/Vol] 0.0 10*3/uL Normal 0.0-0.2 [facility] Comment on above: Performed By: #### T SH3, ESR, CRP, CBC, CMP, PTH, MG, PHOS #### [place] [address] [place] #### ESTUARDO #### [facility] , Automated blood monocyte cou ntOrdered By: Vlad Gallagher on 01-17-2024 Monocytes (Bld) [#/Vol] 0.6 10*3/uL Normal 0.0-0.8 [facility] Comment on above: Performed By: #### T SH3, ESR, CRP, CBC, CMP, PTH, MG, PHOS #### [place] [address] [place] #### ESTUARDO #### [facility] , Automated eosinophil %Ordere d By: Vlad Gallagher on 01-17-2024 Eosinophils/100 WBC (Bld) 2.7 % Normal . [facility] Comment on above: Performed By: #### T SH3, ESR, CRP, CBC, CMP, PTH, MG, PHOS #### [facility] [address] [place] [address] [place] #### ESTUARDO #### [facility] , Automated eosinophil countOr dered By: Vlad Gallagher on 01-17-2024 Eosinophils (Bld) [#/Vol] 0.2 10*3/uL Normal 0.0-0.45 [facility] Comment on above: Performed By: #### T SH3, ESR, CRP, CBC, CMP, PTH, MG, PHOS #### [place] [address] [place] #### ESTUARDO #### [facility] , Automated monocyte %Ordered By: Vlad Gallagher on 01-17-2024 Monocytes/100 WBC (Bld) 10.3 % Normal . [facility] Comment on above: Performed By: #### T SH3, ESR, CRP, CBC, CMP, PTH, MG, PHOS #### [place] [address] [place] #### ESTUARDO #### [facility] , Automated neutrophil %Ordere d By: Vlad Gallagher on 01-17-2024 Neutrophils/100 WBC (Bld) 62.8 % Normal . [facility] Comment on above: Performed By: #### T SH3, ESR, CRP, CBC, CMP, PTH, MG, PHOS #### [place] [address] [place] #### ESTUARDO #### [facility] , Bilirubin.total [Mass/volume ] in Serum or PlasmaOrdered By: Vlad Gallagher on 01-17-2024 Bilirubin [Mass/Vol] 0.3 mg/dL Normal 0.3-1.0 [facility] Comment on above: Performed By: #### T SH3, ESR, CRP, CBC, CMP, PTH, MG, PHOS #### [address] [place] [address] [place] #### ESTUARDO #### [facility] , C reactive protein [Mass/vol ume] in Serum or PlasmaOrdered By: Vlad Gallagher on 01-17-2024 CRP [Mass/Vol] < 0.5 mg/dL 0.0-0.5 [facility] C-Reactive Proteinon 024 CRP [Mass/Vol] mg/L Normal 0.0-0.5 [facility] Comment on above: Performed By: #### T SH3, ESR, CRP, CBC, CMP, PTH, MG, PHOS #### [facility] [address] [place] [address] #### ESTUARDO #### [facility] , Calcium [Mass/volume] in Ser um or PlasmaOrdered By: Vlad Gallagher on 01-17-2024 Calcium [Mass/Vol] 9.6 mg/dL Normal 8.6-10.3 [facility] Comment on above: Performed By: #### T SH3, ESR, CRP, CBC, CMP, PTH, MG, PHOS #### [facility] [address] [place] [address] [place] #### ESTUARDO #### [facility] , Carbon dioxide, total [Moles /volume] in Serum or PlasmaOrdered By: Vlad Gallagher on 01-17-2024 CO2 [Moles/Vol] 28.0 mmol/L Normal 21.0-31.0 [facility] Comment on above: Performed By: #### T SH3, ESR, CRP, CBC, CMP, PTH, MG, PHOS #### [facility] [address] [place] [address] [place] #### ESTUARDO #### [facility] , Chloride [Moles/volume] in S grayson or PlasmaOrdered By: Vlad Gallagher on 01-17-2024 Chloride [Moles/Vol] 105 mmol/L Normal 98-107 [facility] Comment on above: Performed By: #### T SH3, ESR, CRP, CBC, CMP, PTH, MG, PHOS #### [facility] [address] [place] [address] [place] #### ESTUARDO #### [facility] , Complete Blood Count Auto Di ffon 01-17-2024 Mean Corpuscular HGB Conc 33.1 g/dL Normal 32.0-35.0 [facility] Comment on above: Performed By: #### T SH3, ESR, CRP, CBC, CMP, PTH, MG, PHOS #### [facility] [address] [place] [address] [place] #### ESTUARDO #### [facility] , NRBC% 0.1 /100{WBC} Normal 0-0.5 [facility] Comment on above: Performed By: #### T SH3, ESR, CRP, CBC, CMP, PTH, MG, PHOS #### [place] [address] [place] #### ESTUARDO #### [facility] , Comprehensive Metabolic Pane moriah 01-17-2024 Albumin [Mass/Vol] 4.3 g/dL Normal 3.5-5.7 [facility] Comment on above: Performed By: #### T SH3, ESR, CRP, CBC, CMP, PTH, MG, PHOS #### [place] [address] [place] #### ESTUARDO #### [facility] , GFR/1.73 sq M.predicted MDRD (S/P/Bld) [Vol rate/Area] mL/min/{1.73_m2} Normal [facility] Comment on above: Performed By: #### T SH3, ESR, CRP, CBC, CMP, PTH, MG, PHOS #### [facility] [address] [place] [address] [place] #### ESTUARDO #### [facility] , Creatinine [Mass/volume] in Serum or PlasmaOrdered By: Vlad Gallagher on 01-17-2024 Creatinine [Mass/Vol] 0.87 mg/dL Normal 0.60-1.20 [facility] Comment on above: Performed By: #### T SH3, ESR, CRP, CBC, CMP, PTH, MG, PHOS #### [address] #### ESTUARDO #### [facility] , Erythrocyte Sedimentation Ra michell 01-17-2024 ESR (Bld) [Velocity] 44 mm/h High 0-29 [facility] Comment on above: Result Comment: PERF ORMED BY: [place] [address] PATHOLOGIST TECHNICAL SERVICE REPRESENTATIVE TIFFANIE PICKARD M.D. Performed By: #### T SH3, ESR, CRP, CBC, CMP, PTH, MG, PHOS #### [address] #### ESTUARDO #### [facility] , Erythrocyte distribution wid th [Ratio] by Automated countOrdered By: Vlad Glalagher on 01-17-2024 Erythrocyte distribution width (RBC) [Ratio] 14.5 % Normal 11.9-15.3 [facility] Comment on above: Performed By: #### T SH3, ESR, CRP, CBC, CMP, PTH, MG, PHOS #### [address] #### ESTUARDO #### [facility] , Erythrocyte sedimentation ra te by Photometric methodOrdered By: Vlad Gallagher on 01-17-2024 ESR Photometric method (Bld) [Velocity] 44 mm/hr 0-29 [facility] Erythrocytes [#/volume] in B lood by Automated countOrdered By: Vlad Gallagher on 01-17-2024 RBC (Bld) [#/Vol] 4.43 10*6/uL Normal 3.60-5.00 [facility] Comment on above: Performed By: #### T SH3, ESR, CRP, CBC, CMP, PTH, MG, PHOS #### [place] [address] [place] #### ESTUARDO #### [facility] , Glucose [Mass/volume] in Ser um or PlasmaOrdered By: Vlad Gallagher on 01-17-2024 Glucose [Mass/Vol] 86 mg/dL Normal 70-100 [facility] Comment on above: ADA recommended refe rence rangeRandom Glucose Reference Range is dependent on time and content of last meal. Glucose of more than 200 mg/dL in a nonstressed, ambulatory subject supports the diagnosis of Diabetes Mellitus. Result Comment: [place] om Glucose Reference Range is dependent on time and content of last meal. Glucose of more than 200 mg/dL in a nonstressed, ambulatory subject supports the diagnosis of Diabetes Mellitus. ADA recommended reference range Performed By: #### T SH3, ESR, CRP, CBC, CMP, PTH, MG, PHOS #### [place] [address] [place] #### ESTUARDO #### [facility] , Hematocrit [Volume Fraction] of Blood by Automated countOrdered By: Vlad Gallagher on 01-17-2024 Hematocrit (Bld) [Volume fraction] 41.6 % Normal 34.0-46.4 [facility] Comment on above: Performed By: #### T SH3, ESR, CRP, CBC, CMP, PTH, MG, PHOS #### [address] #### ESTUARDO #### [facility] , Hemoglobin [Mass/volume] in BloodOrdered By: Vlad Gallagher on 01-17-2024 Hemoglobin (Bld) [Mass/Vol] 13.8 g/dL Normal 11.8-15.4 [facility] Comment on above: Performed By: #### T SH3, ESR, CRP, CBC, CMP, PTH, MG, PHOS #### [place] [address] [place] #### ESTUARDO #### [facility] , Leukocytes [#/volume] correc yoel for nucleated erythrocytes in Blood by Automated counOrdered By: Vlad Gallagher on 01-17-2024 WBC corrected for nucl RBC Auto (Bld) [#/Vol] 6.2 10*3/uL 3.8-11.6 [facility] Leukocytes [#/volume] in Blo od by Automated countOrdered By: Vlad Gallagher on 01-17-2024 WBC (Bld) [#/Vol] 6.2 10*3/uL Normal 3.8-11.6 [facility] Comment on above: Performed By: #### T SH3, ESR, CRP, CBC, CMP, PTH, MG, PHOS #### [address] #### ESTUARDO #### [facility] , Lymphocytes [#/volume] in Bl ood by Automated countOrdered By: Vlad Gallagher on 01-17-2024 Lymphocytes (Bld) [#/Vol] 1.5 10*3/uL Normal 1.00-4.8 [facility] Comment on above: Performed By: #### T SH3, ESR, CRP, CBC, CMP, PTH, MG, PHOS #### [place] [address] [place] #### ESTUARDO #### [facility] , Lymphocytes/100 leukocytes i n Blood by Automated countOrdered By: Vlad Gallagher on 01-17-2024 Lymphocytes/100 WBC (Bld) 23.4 % Normal . [facility] Comment on above: Performed By: #### T SH3, ESR, CRP, CBC, CMP, PTH, MG, PHOS #### [place] [address] [place] #### ESTUARDO #### [facility] , MCH [Entitic mass] by Automa yoel countOrdered By: Vlad Gallagher on 01-17-2024 MCH (RBC) [Entitic mass] 31.1 pg Normal 24.7-34.3 [facility] Comment on above: Performed By: #### T SH3, ESR, CRP, CBC, CMP, PTH, MG, PHOS #### [place] [address] [place] #### ESTUARDO #### [facility] , MCHC Auto (RBC) [Mass/Vol]Or dered By: Vlad Gallagher on 01-17-2024 MCHC (RBC) [Mass/Vol] 33.1 g/dL 32.0-35.0 [facility] MCV [Entitic volume] by Auto mated countOrdered By: Vlad Gallagher on 01-17-2024 MCV (RBC) [Entitic vol] 93.9 fL Normal 80-100 [facility] Comment on above: Performed By: #### T SH3, ESR, CRP, CBC, CMP, PTH, MG, PHOS #### [facility] [address] [place] [address] [place] #### ESTUARDO #### [facility] , Magnesium [Mass/volume] in S grayson or PlasmaOrdered By: Vlad Gallagher on 01-17-2024 Magnesium [Mass/Vol] 2.1 mg/dL Normal 1.9-2.7 [facility] Comment on above: Performed By: #### T SH3, ESR, CRP, CBC, CMP, PTH, MG, PHOS #### [facility] [address] [place] [address] [place] #### ESTUARDO #### [facility] , Neutrophils [#/volume] in Bl ood by Automated countOrdered By: Vlad Gallagher on 01-17-2024 Neutrophils (Bld) [#/Vol] 3.9 10*3/uL Normal 1.8-7.7 [facility] Comment on above: Performed By: #### T SH3, ESR, CRP, CBC, CMP, PTH, MG, PHOS #### [facility] [address] [place] [address] [place] #### ESTUARDO #### [facility] , No Panel InformationOrdered By: Vlad Gallagher on 01-17-2024 Anti-Nuclear Antibody Comment 2 See comment . [facility] Comment on above: Pattern Potential Di sease Association Homogeneous Systemic Lupus Erythematosus, Drug Induced Systemic Lupus Erythematosus, Chronic Autoimmune hepatitis, Juvenile Idiopathic Arthritis Speckled Sjogren Syndrome, Systemic Lupus Erythematosus, Subacute Cutaneous Lupus, Lupus, Congenital Heart Block, Mixed Connective Tissue Disease, Scleroderma-diffuse, Scleroderma-Autoimmune Myositis Overlap Syndrome, Systemic Lupus Tfdnguadnjewp-Wzjohimdulc-Tmrogafaiv Myositis Overlap Syndrome, Systemic Autoimmune Rheumatic Disease, [...] Cytopenias, Linear Scleroderma, Antiphospholipid Syndrome Performed at: [employer] [id number] [place], [place] [id number] Director: Haresh Obregon PhD, Phone: [phone] Estimated GFR (CKD-EPI) > 60.0 mL/Min [facility] Creatinine Clearance (Chem N/A [facility] Nucleated erythrocytes [Pres ence] in Blood by Automated countOrdered By: Vlad Gallagher on 01-17-2024 Nucleated RBC Auto Ql (Bld) 0.1 /100{WBC} 0-0.5 [facility] Parathyrin.intact [Mass/volu me] in Serum or PlasmaOrdered By: Vlad Gallagher on 01-17-2024 Parathyrin.intact [Mass/Vol] 40.8 pg/mL [facility] Parathyroid Hormone Intacton 01-17-2024 Parathyroid Hormone Intact 40.8 pg/mL Normal [facility] Comment on above: Result Comment: PERF ORMED BY: [place] [address] PATHOLOGIST TECHNICAL SERVICE REPRESENTATIVE TIFFANIE PICKARD M.D. Performed By: #### T SH3, ESR, CRP, CBC, CMP, PTH, MG, PHOS #### [facility] [address] [place] [address] [place] #### ESTUARDO #### [facility] , Phosphate [Mass/volume] in S grayson or PlasmaOrdered By: Vlad Gallagher on 01-17-2024 Phosphate [Mass/Vol] 2.6 mg/dL Normal 2.5-4.5 [facility] Comment on above: Performed By: #### T SH3, ESR, CRP, CBC, CMP, PTH, MG, PHOS #### [facility] [address] [place] [address] [place] #### ESTUARDO #### [facility] , Platelet mean volume [Entiti c volume] in Blood by Automated countOrdered By: Vlad Gallagher on 01-17-2024 Platelet mean volume (Bld) [Entitic vol] 10.2 fL Normal 6.3-10.7 [facility] Comment on above: Performed By: #### T SH3, ESR, CRP, CBC, CMP, PTH, MG, PHOS #### [facility] [address] [place] [address] [place] #### ESTUARDO #### [facility] , Platelets [#/volume] in Bloo d by Automated countOrdered By: Vlad Gallagher on 01-17-2024 Platelets (Bld) [#/Vol] 238 10*3/uL Normal 150-450 [facility] Comment on above: Performed By: #### T SH3, ESR, CRP, CBC, CMP, PTH, MG, PHOS #### [place] [address] [place] #### ESTUARDO #### [facility] , Potassium [Moles/volume] in Serum or PlasmaOrdered By: Vlad Gallagher on 01-17-2024 Potassium [Moles/Vol] 4.2 mmol/L Normal 3.5-5.1 [facility] Comment on above: Performed By: #### T SH3, ESR, CRP, CBC, CMP, PTH, MG, PHOS #### [place] [address] [place] #### ESTUARDO #### [facility] , Protein [Mass/volume] in Ser um or PlasmaOrdered By: Vlad Gallagher on 01-17-2024 Protein [Mass/Vol] 7.3 g/dL Normal 6.4-8.9 [facility] Comment on above: Performed By: #### T SH3, ESR, CRP, CBC, CMP, PTH, MG, PHOS #### [place] [address] [place] #### ESTUARDO #### [facility] , Serum globulin measurement b y calculation (mass/volume)Ordered By: Vlad Gallagher on 01-17-2024 Globulin (S) [Mass/Vol] 3.0 g/dL Normal [facility] Comment on above: Performed By: #### T SH3, ESR, CRP, CBC, CMP, PTH, MG, PHOS #### [address] #### ESTUARDO #### [facility] , Serum nuclear antibody titer Ordered By: Vlad Gallagher on 01-17-2024 Nuclear Ab (S) [Titer] Positive . [facility] Comment on above: Negative <1:80 Borde rline 1:80 Positive >1:80 Serum or plasma albumin/glob ulin mass ratioOrdered By: Vlad Gallagher on 01-17-2024 Albumin/Globulin [Mass ratio] 1.4 {ratio} Normal [facility] Comment on above: Performed By: #### T SH3, ESR, CRP, CBC, CMP, PTH, MG, PHOS #### [facility] [address] [place] [address] #### ESTUARDO #### [facility] , Serum or plasma anion gap de terminationOrdered By: Vlad Gallagher on 01-17-2024 Anion gap [Moles/Vol] 8.2 mmol/L Normal 6.0-15.0 [facility] Comment on above: Performed By: #### T SH3, ESR, CRP, CBC, CMP, PTH, MG, PHOS #### [facility] [address] [place] [address] [place] #### ESTUARDO #### [facility] , Serum speckled pattern antin uclear antibody (ESTUARDO) titerOrdered By: Vlad Gallagher on 01-17-2024 Speckled nuclear Ab pattern (S) [Titer] 1:160 . [facility] Comment on above: ICAP nomenclature: A C-2,4,5,29 Sodium [Moles/volume] in Ser um or PlasmaOrdered By: Vlad Gallagher on 01-17-2024 Sodium [Moles/Vol] 137 mmol/L Normal 136-145 [facility] Comment on above: Performed By: #### T SH3, ESR, CRP, CBC, CMP, PTH, MG, PHOS #### [facility] [address] [place] [address] #### ESTUARDO #### [facility] , Thyrotropin [Units/volume] i n Serum or PlasmaOrdered By: Vlad Gallagher on 01-17-2024 TSH Qn 3.40 m[IU]/L Normal 0.45-5.33 [facility] Comment on above: Result Comment: PERF ORMED BY: [place] [address] PATHOLOGIST TECHNICAL SERVICE REPRESENTATIVE TIFFANIE PICKARD M.D. Performed By: #### T SH3, ESR, CRP, CBC, CMP, PTH, MG, PHOS #### [facility] [address] [place] [address] #### ESTUARDO #### [facility] , Urea nitrogen [Mass/volume] in Serum or PlasmaOrdered By: Vlad Gallagher on 01-17-2024 Urea nitrogen [Mass/Vol] 24 mg/dL Normal 7-25 [facility] Comment on above: Performed By: #### T SH3, ESR, CRP, CBC, CMP, PTH, MG, PHOS #### [facility] [address] [place] [address] #### ESTUARDO #### [facility] , CNOVon 10-29-2023 CNOV Office Visit (LOORRM ) JOSELITO CARVER ([id number]) 1960 F Date Time Provider Department 10/29/23 11:45 AM GARRISON LEE During your visit today, [...] 13:50/mile pace. Pain started at about the fdc point and increased until I was finished. [...] has a race coming up soon in [facility] where she will be power walking a [...] KNEE GENERAL 4V AP BOTH/PA BOTH/LAT/MERC LEFT [2330582] Order #: [id number] FUTURE Prescriptions as of 10/29/2023 - meloxicam (MOBIC) 15 mg tablet (more content not included)... Normal [facility] XR KNEE 4V AP/PA BOTH+LAT/ME R LTon [...] of both knees, LEFT greater than RIGHT. Residential Door Unit Installer: MARKEL Transcribe Date/Time: Oct 29 2023 12:25P Dictated by : DARLENE SPRINGER MD This examination was interpreted and the report reviewed and electronically signed by: DARLENE SPRINGER MD on Oct 29 2023 12:27PM EST [id number] N Normal [facility] XR Knee - left 4 Viewson IMPRESSION: 1. Degenerative arthrosis of both knees, LEFT greater than RIGHT. Residential Door Unit Installer: [facility] Transcribe Date/Time: Oct 29 2023 12:25P Dictated [...] on the RIGHT. DIVISION OF RADIOLOGY Provider, Fely Lizama - 10/29/2023 * * *Final Report* * [...] of both knees, LEFT greater than RIGHT. Residential Door Unit Installer: MARKEL Transcribe Date/Time: Oct 29 2023 12:25P Dictated by : DARLENE SPRINGER MD This examination was interpreted and the report reviewed and electronically signed by: DARLENE SPRINGER MD on Oct 29 2023 12:27PM [facility] Radiology Study observation (narrative) Tiki whiting [facility] XR Knee - left 4 ViewsOrdere d By: [facility] Provider on 10-29-2023 [facility] CNOVon 03-03-2023 CNOV Office Visit (LOORRM ) JOSELITO CARVER ([id number]) 1960 F Date Time Provider Department 03/03/23 [...] remains very active and does long distance [employer] races. These activities seem to flareup the [...] knee joint Informed Consent Consent Obtained: Written Silva Protocol A moment to CARE was completed. [...] kidney diseas (more content not included)... Normal [facility] PTH INTACTon 12-03-2022 PTH, Intact 25 pg/mL Normal 15-65 [facility] Comment on above: Performed By: #### P THINT #### [facility] [address] [address] [address] Noris Duenas MAGNESIUMon 12-02-2022 Magnesium [Mass/Vol] 2.0 mg/dL Normal 1.8-2.4 [facility] Comment on above: Performed By: #### P HOS, MG, BMP ####[facility] [address] [address]Dr. Noris Duenas PHOSPHORUSon 12-02-2022 Phosphate [Mass/Vol] 3.5 mg/dL Normal 2.6-4.7 [facility] Comment on above: Performed By: #### P HOS, MG, BMP ####[facility] [address] [address]Dr. Noris Duenas PROF CHEM 8 (BAS METB)on Anion gap [Moles/Vol] 12.0 mmol/L Normal [facility] Comment on above: Performed By: #### P HOS, MG, BMP #### [facility] [address] [address] [address] Noris Duenas Calcium [Mass/Vol] 9.4 mg/dL Normal 8.5-10.1 [facility] Comment on above: Performed By: #### P HOS, MG, BMP #### [facility] [address] [address] [address] Noris Duenas Chloride [Moles/Vol] 103 mmol/L Normal 98-107 [facility] Comment on above: Performed By: #### P HOS, MG, BMP #### [facility] [address] [address] [address] Noris Duenas CO2 [Moles/Vol] 29.0 mmol/L Normal 21.0-32.0 [facility] Comment on above: Performed By: #### P HOS, MG, BMP #### [facility] [address] [address] [address] Noris Duenas Creatinine [Mass/Vol] 0.70 mg/dL Normal 0.55-1.02 [facility] Comment on above: Performed By: #### P HOS, MG, BMP #### [facility] [address] [address] [address] Noris Duenas EGFR-AF CUBAN >60 Normal >=60 [facility] Comment on above: Performed By: #### P HOS, MG, BMP #### [facility] [address] [address] [address] Noris Duenas EGFR-NON AF CUBAN >60 Normal >=60 [facility] Comment on above: Performed By: #### P HOS, MG, BMP #### [facility] [address] [address] [address] Noris Duenas Glucose [Mass/Vol] 95 mg/dL Normal 74-106 [facility] Comment on above: Performed By: #### P HOS, MG, BMP #### [facility] [address] [place] [address] Dr. Noris Duenas Potassium [Moles/Vol] 4.0 mmol/L Normal 3.5-5.1 [facility] Comment on above: Performed By: #### P HOS, MG, BMP #### [facility] [address] [address] [address] Noris Duenas Sodium [Moles/Vol] 140 mmol/L Normal 136-145 [facility] Comment on above: Performed By: #### P HOS, MG, BMP #### [facility] [address] [place] [address] Dr. Noris Duenas Urea nitrogen [Mass/Vol] 17.0 mg/dL Normal 7.0-18.0 [facility] Comment on above: Performed By: #### P HOS, MG, BMP #### [facility] [address] [address] [address] Noris Duenas Urea nitrogen/Creatinine [Mass ratio] 24.3 mg/mg Normal [facility] Comment on above: Performed By: #### P HOS, MG, BMP #### [facility] [address] [place] [address] Dr. Noris Duenas VITAMIN D 25 OHon 12-02-2022 VIT D 25-OH 76.9 ng/mL Normal [facility] Comment on above: Performed By: #### V ITAD #### [facility] [address] [place], [place] [address] Dr. Noris Duenas VIT D RANGES SEE BELOW Normal [facility] Comment on above: Result Comment: <20 ng/mL Vit D deficient 20 - <30 ng/mL Vit D insufficient 30 - 100 ng/mL Vit D sufficient >100 ng/mL Potential Toxicity Performed By: #### V ITAD #### [facility] [address] [address] [address] Noris Duenas XR KNEE GENERAL 4V AP BOTH/P A BOTH/LAT/MERC LEFTon 06-09-2022 [facility] XR Knee - left 4 Viewson IMPRESSION: Left knee osteoarthritis as described. Residential Door Unit Installer: MARKEL Transcribe Date/Time: Jun 09 2022 1:58P Dictated by : HEBER CAMACHO MD This examination was interpreted and the report reviewed and electronically signed by: HEBER CAMACHO MD on Jun 09 2022 1:58PM [facility] DIVISION OF RADIOLOGY * * *Final Report* [...] knee joint effusion. No other significant abnormality. DIVISION OF RADIOLOGY Provider, Rosaura Nadine [facility] - 06/09/2022 * * *Final Report* * * DATE [...] knee joint effusion. No other significant abnormality. IMPRESSION IMPRESSION: Left knee osteoarthritis as described. Residential Door Unit Installer: MARKEL Transcribe Date/Time: Jun 09 2022 1:58P Dictated by : HEBER CAMACHO MD This examination was interpreted and the report reviewed and electronically signed by: HEBER CAMACHO MD on Jun 09 2022 1:58PM EST [facility] Radiology Study observation (narrative) [facility] XR Knee - left 4 ViewsOrdere d By: [facility] Provider on 06-09-2022 [facility] CBC AUTO DIFFon 05-18-2022 BASO # 0.0 103/ul Normal 0.0-0.1 [facility] Comment on above: Performed By: #### C BC #### [facility] [address] [place] [address] Dr. Noris Duenas Basophils/100 WBC (Bld) 0.8 % Normal 0.2-2.0 [facility] Comment on above: Performed By: #### C BC #### [facility] [address] [place] [address] Dr. Noris Duenas EO # 0.2 103/ul Normal 0.0-0.7 [facility] Comment on above: Performed By: #### C BC #### [facility] [address] [address] [address] Noris Duenas Eosinophils/100 WBC (Bld) 3.8 % Normal 0.9-7.0 [facility] Comment on above: Performed By: #### C BC #### [facility] [address] [place] [address] Dr. Noris Duenas Erythrocyte distribution width (RBC) [Ratio] 13.2 % Normal 11.0-15.0 [facility] Comment on above: Performed By: #### C BC #### [facility] [address] [place] [address] Dr. Noris Duenas Hematocrit (Bld) [Volume fraction] 41.2 % Normal 36.0-48.0 [facility] Comment on above: Performed By: #### C BC #### [facility] [address] [place] [address] Dr. Noris Duenas Hemoglobin (Bld) [Mass/Vol] 13.2 g/dL Normal 12.0-16.0 [facility] Comment on above: Performed By: #### C BC #### [facility] [address] [place] [address] Dr. Noris Duenas IG # 0.01 10e3/ul Normal 0.00-0.03 [facility] Comment on above: Performed By: #### C BC #### [facility] [address] [place] [address] Dr. Noris Duenas IG % 0.2 % Normal 0.0-0.5 [facility] Comment on above: Performed By: #### C BC #### [facility] [address] [place] [address] Dr. Noris Duenas LYMPH # 1.7 103/ul Normal 1.2-3.8 [facility] Comment on above: Performed By: #### C BC #### [facility] [address] [place] [address] Dr. Noris Duenas Lymphocytes/100 WBC (Bld) 35.0 % Normal 20.5-60.0 [facility] Comment on above: Performed By: #### C BC #### [facility] [address] [place] [address] Dr. Noris Duenas MANUAL DIFF REQ NO Normal [facility] Comment on above: Performed By: #### C BC #### [facility] [address] [place] [address] Dr. Noris Duenas MCH (RBC) [Entitic mass] 30.3 pg Normal 26.7-34.0 [facility] Comment on above: Performed By: #### C BC #### [facility] [address] [address] [address] Noris Duenas MCHC (RBC) [Mass/Vol] 32.0 g/dL Normal 29.9-35.2 [facility] Comment on above: Performed By: #### C BC #### [facility] [address] [address] [address] Noris Duenas MCV (RBC) [Entitic vol] 94.5 fL Normal 81.0-99.0 [facility] Comment on above: Performed By: #### C BC #### [facility] [address] [address] [address] Noris Duenas MONO # 0.6 103/ul Normal 0.3-0.8 [facility] Comment on above: Performed By: #### C BC #### [facility] [address] [place] [address] Dr. Noris Duenas Monocytes/100 WBC (Bld) 13.4 % Critically high 1.7-12. 0 [facility] Comment on above: Performed By: #### C BC #### [facility] [address] [place] [address] Dr. Noris Duenas NEUT # 2.2 103/ul Normal 1.4-6.5 [facility] Comment on above: Performed By: #### C BC #### [facility] [address] [place] [address] Dr. Noris Duenas Neutrophils/100 WBC (Bld) 46.8 % Normal 43.0-75.0 [facility] Comment on above: Performed By: #### C BC #### [facility] [address] [address] [address] Noris Duenas Platelet mean volume (Bld) [Entitic vol] 10.7 fL Normal 9.5-13.5 [facility] Comment on above: Performed By: #### C BC #### [facility] [address] [place] [address] Dr. Noris Duenas PLT 237 103/ul Normal 150-450 [facility] Comment on above: Performed By: #### C BC #### [facility] [address] [place] [address] Dr. Noris Duenas RBC 4.36 106/ul Normal 4.20-5.40 [facility] Comment on above: Performed By: #### C BC #### [facility] [address] [place] [address] Dr. Noris Duenas WBC 4.8 103/ul Normal 4.0-11.0 [facility] Comment on above: Performed By: #### C BC #### [facility] [address] [place] [address] Dr. Noris Duenas CRPon 05-18-2022 CRP [Mass/Vol] mg/L Normal <=1.0 [facility] Comment on above: Performed By: #### C MP, LIPID, CRP #### [facility] [address] [place] [address] Dr. Noris Duenas LIPID PROFILEon 05-18-2022 CHOL-HDL RATIO NORM SEE BELOW Normal [facility] Comment on above: Result Comment: 3.3 - 4.4 LOW RISK 4.4 - 7.1 AVERAGE RISK 7.1 - 11.0 MODERATE RISK >11.0 HIGH RISK Performed By: #### C MP, LIPID, CRP #### [facility] [address] [place] [address] Dr. Noris Duenas Cholesterol [Mass/Vol] 193 mg/dL Normal <=[address] [facility] Comment on above: Performed By: #### C MP, LIPID, CRP #### [facility] [address] [place] [address] Dr. Noris Duenas Cholesterol in HDL [Mass/Vol] 56 mg/dL Normal 40-60 [facility] Comment on above: Performed By: #### C MP, LIPID, CRP #### [facility] [address] [place] [address] Dr. Noris Duenas Cholesterol in LDL [Mass/Vol] 105.6 mg/dL Normal [facility] Comment on above: Performed By: #### C MP, LIPID, CRP #### [facility] [address] [place] [address] Dr. Noris Duenas Cholesterol.total/Gissell sterol in HDL [Mass ratio] 3.4 {ratio} Normal [facility] Comment on above: Performed By: #### C MP, LIPID, CRP #### [facility] [address] [place] [address] Dr. Noris Duenas HDL NORMAL > or = 60 mg/dl - LO W CARDIOVASCULAR RISK <40 mg/dl - HIGH CARDIOVASCULAR RISK Normal [facility] Comment on above: Performed By: #### C MP, LIPID, CRP #### [facility] [address] [address] [address] Noris Duenas LDL CALC NORMAL SEE BELOW Normal [facility] Comment on above: Result Comment: <100 mg/dl OPTIMAL 100 - 129 mg/dl NEAR OR ABOVE OPTIMAL 130 - 159 mg/dl BORDERLINE HIGH 160 - 189 mg/dl HIGH >190 mg/dl VERY HIGH Performed By: #### C MP, LIPID, CRP #### [facility] [address] [place] [address] Dr. Noris Duenas Triglyceride [Mass/Vol] 157 mg/dL Critically high <=150 [facility] Comment on above: Performed By: #### C MP, LIPID, CRP #### [facility] [address] [place] [address] Dr. Noris Duenas VLDL CALC 31.4 mg/dL Normal [facility] Comment on above: Performed By: #### C MP, LIPID, CRP #### [facility] [address] [place] [address] Dr. Noris Duenas PROF 14(COMP METB)on 022 Albumin [Mass/Vol] 3.7 g/dL Normal 3.4-5.0 [facility] Comment on above: Performed By: #### C MP, LIPID, CRP #### [facility] [address] [place] [address] Dr. Noris Duenas Albumin/Globulin [Mass ratio] 1.0 {ratio} Normal [facility] Comment on above: Performed By: #### C MP, LIPID, CRP #### [facility] [address] [place] [address] Dr. Noris Duenas ALP [Catalytic activity/Vol] 60 U/L Normal 46-116 [facility] Comment on above: Performed By: #### C MP, LIPID, CRP #### [facility] [address] [address] [address] Noris Duenas ALT [Catalytic activity/Vol] 30 U/L Normal 14-59 [facility] Comment on above: Performed By: #### C MP, LIPID, CRP #### [facility] [address] [address] [address] Noris Duenas Anion gap [Moles/Vol] 10.4 mmol/L Normal [facility] Comment on above: Performed By: #### C MP, LIPID, CRP #### [facility] [address] [place] [address] Dr. Noris Duenas AST [Catalytic activity/Vol] 23 U/L Normal 15-37 [facility] Comment on above: Performed By: #### C MP, LIPID, CRP #### [facility] [address] [address] [address] Noris Duenas Bilirubin [Mass/Vol] 0.3 mg/dL Normal 0.2-1.0 [facility] Comment on above: Performed By: #### C MP, LIPID, CRP #### [facility] [address] [place] [address] Dr. Noris Duenas Calcium [Mass/Vol] 9.4 mg/dL Normal 8.5-10.1 [facility] Comment on above: Performed By: #### C MP, LIPID, CRP #### [facility] [address] [place] [address] Dr. Noris Duenas Chloride [Moles/Vol] 103 mmol/L Normal 98-107 [facility] Comment on above: Performed By: #### C MP, LIPID, CRP #### [facility] [address] [place] [address] Dr. Noris Duenas CO2 [Moles/Vol] 27.7 mmol/L Normal 21.0-32.0 [facility] Comment on above: Performed By: #### C MP, LIPID, CRP #### [facility] [address] [address] [address] Noris Duenas Creatinine [Mass/Vol] 0.91 mg/dL Normal 0.55-1.02 [facility] Comment on above: Performed By: #### C MP, LIPID, CRP #### [facility] [address] [address] [address] Noris Duenas EGFR-AF CUBAN >60 Normal >=[address] [facility] Comment on above: Performed By: #### C MP, LIPID, CRP #### [facility] [address] [address] [address] Noris Duenas EGFR-NON AF CUBAN >60 Normal >=60 [facility] Comment on above: Performed By: #### C MP, LIPID, CRP #### [facility] [address] [place] [address] Dr. Noris Duenas Globulin (S) [Mass/Vol] 3.7 g/dL Normal [facility] Comment on above: Performed By: #### C MP, LIPID, CRP #### [facility] [address] [address] [address] Noris Duenas Glucose [Mass/Vol] 101 mg/dL Normal 74-106 [facility] Comment on above: Performed By: #### C MP, LIPID, CRP #### [facility] [address] [address] [address] Noris Duenas Potassium [Moles/Vol] 4.1 mmol/L Normal 3.5-5.1 [facility] Comment on above: Performed By: #### C MP, LIPID, CRP #### [facility] [address] [address] [address] Noris Duenas Protein [Mass/Vol] 7.4 g/dL Normal 6.4-8.2 [facility] Comment on above: Performed By: #### C MP, LIPID, CRP #### [facility] [address] [address] [address] Noris Duenas Sodium [Moles/Vol] 137 mmol/L Normal 136-145 [facility] Comment on above: Performed By: #### C MP, LIPID, CRP #### [facility] [address] [place], [place] [address] Dr. Noris Duenas Urea nitrogen [Mass/Vol] 19.0 mg/dL Critically high 7.0-18.0 [facility] Comment on above: Performed By: #### C MP, LIPID, CRP #### [facility] [address] [place], [place] [address] Dr. Noris Duenas Urea nitrogen/Creatinine [Mass ratio] 20.9 mg/mg Normal [facility] Comment on above: Performed By: #### C MP, LIPID, CRP #### [facility] [address] [place], [place] [address] Dr. Noris Duenas SED RATE [facility] 2021 SED RATE 32 mm/hr Critically high <=30 [facility] Comment on above: Performed By: #### S EDR ####[facility] [address] [place], [place] [address]DoDr. Noris Duenas Covid-19 PCR (CVDTB)on 01-28 SARS-CoV-2 (COVID-19) RNA EUSEBIO+probe Ql (Unsp spec) Not detected Normal NOT DETECTED [facility] Comment on above: Result Comment: This test is not yet approved or cleared by the [place] FDA. When there are no FDA-approved or cleared tests available, and other criteria are met, FDA can make tests available under an emergency access mechanism called an Emergency Use Authorization (EUA). The EUA for this test is supported by the [employer] of Health and Human Service's (HHS's) declaration [...] SARS-CoV-2. Performed By: #### C VDTBH #### [facility] [address] [address] [address] Noris Duenas XR Knee - left 4 Viewson IMPRESSION: Moderate osteoarthritis left knee similar to 2019. Residential Door Unit Installer: MARKEL Transcribe Date/Time: Jan 21 2021 1:23P Dictated by : SILVIO JAMES DO This examination was interpreted and the report reviewed and electronically signed by: ALEX ZAMUDIO MD on Jan 21 2021 2:17PM [facility] DIVISION OF RADIOLOGY * * *Final Report* * * DATE OF EXAM: Jan 21 2021 1:04PM LZX 5202 - XR KNEE 4V AP/PA BOTH+LAT/JESS LT / PROCEDURE REASON: Primary osteoarthritis of left knee * * * * Physician Interpretation * * * * EXAMINATION: XR KNEE 4V AP/PA BOTH+LAT/JESS LT PATIENT/TECHNOLOGIST PROVIDED HISTORY: CHRONIC ANTERIOR LEFT KNEE PAIN FOR MANY YEARS CLINICAL INFORMATION: Primary osteoarthritis of left knee TECHNIQUE: Left knee, 4 views, weight-bearing COMPARISON: 08/08/2019 left knee radiograph. RESULT: No significant suprapatellar joint effusion. No acute fracture. No dislocation. Moderate patellofemoral compartment joint space narrowing. Mild to moderate medial compartment joint space narrowing. Lateral compartment joint space is maintained. Tricompartmental osteophytes. Incidental note of tricompartmental degenerative change of the right knee, most pronounced in the patellofemoral compartment with mild-moderate degenerative changes. DIVISION OF RADIOLOGY Provider, [facility] - 01/21/2021 * * *Final Report* * * DATE OF EXAM: Jan 21 2021 1:04PM [facility] 5202 - XR KNEE 4V AP/PA BOTH+LAT/JESS LT / PROCEDURE REASON: Primary osteoarthritis of left knee * * * * Physician Interpretation * * * * EXAMINATION: XR KNEE 4V AP/PA BOTH+LAT/JESS LT PATIENT/TECHNOLOGIST PROVIDED HISTORY: CHRONIC ANTERIOR LEFT KNEE PAIN FOR MANY YEARS CLINICAL INFORMATION: Primary osteoarthritis of left knee TECHNIQUE: Left knee, 4 views, weight-bearing COMPARISON: 08/08/2019 left knee radiograph. RESULT: No significant suprapatellar joint effusion. No acute fracture. No dislocation. Moderate patellofemoral compartment joint space narrowing. Mild to moderate medial compartment joint space narrowing. Lateral compartment joint space is maintained. Tricompartmental osteophytes. Incidental note of tricompartmental degenerative change of the right knee, most pronounced in the patellofemoral compartment with mild-moderate degenerative changes. IMPRESSION IMPRESSION: Moderate osteoarthritis left knee similar to 2019. Residential Door Unit Installer: MARKEL Transcribe Date/Time: Jan 21 2021 1:23P Dictated by : SILVIO JAMES DO This examination was interpreted and the report reviewed and electronically signed by: ALEX ZAMUDIO MD on Jan 21 2021 2:17PM EST [facility] Radiology Study observation (narrative) Tiki whiting [facility] XR Knee - left 4 ViewsOrdere d By: [facility] Provider on 01-21-2021 [facility] No Panel Information [facility] Vital Signs Date Time Vital Sign Value Performing Clinician Facility 05-15-2024 13:39-0400 Body height 160.02 cm MD Tiffanie Johnson Work Phone: [facility] 05-15-2024 13:39-0400 Body mass index (BMI) [Ratio] 24.4 kg/m2 MD Tiffanie Johnson Work Phone: [facility] 05-15-2024 13:39-0400 Body weight 62.59 kg MD Tiffanie Johnson Work Phone: [facility] 05-15-2024 13:39-0400 Diastolic blood pressure 76 mm[Hg] MD Tiffanie Johnson Work Phone: [facility] 05-15-2024 13:39-0400 Heart rate 61 /min MD Tiffanie Johnson Work Phone: [facility] 05-15-2024 13:39-0400 Respiratory rate 12 /min MD Tiffanie Johnson Work Phone: [facility] 05-15-2024 13:39-0400 Systolic blood pressure 111 mm[Hg] MD Tiffanie Johnson Work Phone: [facility] 07-27-2023 09:30-0500 Body height 160.02 cm Tiffanie Johnson Other [email or web address] Other 07-27-2023 09:30-0500 Body mass index (BMI) [Ratio] 23.95 kg/m2 Tiffanie Johnson Other [facility] [employer] Other 07-27-2023 09:30-0500 Body weight 61.33 kg Tiffanie Johnson Other [facility] [employer] [facility] Other 07-27-2023 09:30-0500 Diastolic blood pressure 77 mm[Hg] Tiffanie Johnson Other [facility] [employer] [facility] Other 07-27-2023 09:30-0500 Systolic blood pressure 130 mm[Hg] Tiffanie Johnson Other [facility] [employer] Other Encounters Encounter Date Encounter Type Care Provider Facility Start: 05-15-2024 End: 05-15-2024 ambulatory MD Tiffanie Johnson Work Phone: [facility] Work Phone: Start: 05-15-2024 End: 05-15-2024 Encounter for general adult medical examination without abnormal findings MD Tiffanie Johnson Work Phone: [facility] Start: 05-15-2024 End: 05-15-2024 Patient encounter procedure MD Tiffanie Johnson Work Phone: [facility] Work Phone: Start: 05-12-2024 Patient encounter status MD Sravanthi Johnson Work Phone: [facility] Start: 02-15-2024 End: 02-15-2024 Patient encounter procedure MD Tiffanie Johnson Work Phone: [facility] [address] Work Phone: Start: 02-15-2024 End: 02-15-2024 ambulatory MD Tiffanie Johnson Work Phone: [facility] Work Phone: Start: 01-17-2024 Non-patient / Non-visit MD Tonya Johnson Work Phone: [facility] Work Phone: Start: 01-17-2024 End: 01-17-2024 Patient encounter procedure MD Tiffanie Johnson Work Phone: [facility] [address] Work Phone: Start: 01-17-2024 End: 01-17-2024 ambulatory MD Tiffanie Johnson Work Phone: [facility] Work Phone: Start: 10-29-2023 End: 10-29-2023 ambulatory Carmel Ford RT(R) Radiology Comment on above: Radiology XR Start: 10-29-2023 End: 10-29-2023 Patient encounter procedure Carmel Ford RT(R) LUISA CAIN Comment on above: Primary osteoarthrit is of left knee (Primary Dx); It band syndrome, left Start: 10-29-2023 End: 10-29-2023 Subsequent hospital visit by physician Maryjo Cole 1 Work Phone: Radiology Comment on above: Primary osteoarthrit is of left knee [M17.12] Start: 08-04-2023 End: 08-04-2023 ambulatory Tiffanie Johnson Other [email or web address] Other Start: 08-04-2023 Telephone encounter Tiffanie Johnson [facility] Start: 07-27-2023 End: 07-27-2023 ambulatory Tiffanie Johnson Other [email or web address] Other Start: 07-27-2023 Encounter for genera l adult medical examination without abnormal findings Tiffanie Johnson [facility] Start: 07-27-2023 Periodic preventive med est patient 40-64yrs Tiffanie Johnson [facility] Start: 03-03-2023 End: 03-03-2023 ambulatory GARRISON LEE Facility:[facility] Start: 03-03-2023 End: 03-03-2023 Patient encounter procedure Garrison Lee PA-C Work Phone: Orthopaedics Comment on above: Primary osteoarthrit is of left knee (Primary Dx) Start: 01-14-2023 ambulatory ANALISA BIENVENIDO Facilit y:[facility] Start: 12-02-2022 End: 12-03-[address] DONALD ORTIZ Facility:[facility] Start: 06-09-2022 End: 06-09-2022 Patient encounter procedure Garrison Lee PA-C Work Phone: Orthopaedics Comment on above: Primary osteoarthrit is of left knee (Primary Dx) Start: 06-09-2022 End: 06-09-2022 Subsequent hospital visit by physician Maryjo Cole 1 Work Phone: Radiology Comment on above: Primary osteoarthrit is of left knee [M17.12] Start: 06-02-2022 End: 06-03-2022 ambulatory ANALISA FARIA Facility:[facility] Start: 05-19-2022 Encounter for genera l adult medical examination without abnormal findings DR TIFFANIE JOHNSON [facility] Start: 05-18-2022 End: 05-19-[address] TIFFANIE JOHNSON Facility:[facility] Start: 05-18-2022 End: 05-19-2022 Encounter for general adult medical examination without abnormal findings DR TIFFANIE JOHNSON Facility:[facility] Start: 02-07-2022 End: 02-08-[address] TIFFANIE JOHNSON Facility:[facility] Start: 12-01-2021 End: 12-01-2021 Patient encounter procedure Garrison MINA-C Work Phone: Orthopaedics Comment on above: Primary osteoarthrit is of left knee (Primary Dx) Start: 01-21-2021 End: 01-21-2021 Subsequent hospital visit by physician Maryjo Cole 1 Work Phone: Radiology Comment on above: Primary osteoarthrit is of left knee [M17.12] Procedures Date Procedure Procedure Detail Performing Clinician Start: 02-15-2024 Plain X-ray of bilat max hands MD Tiffanie Johnson Work Phone: Start: 10-29-2023 Radiologic exam knee complete 4/more views Garrison Lee PA-C Work Phone: Start: 03-03-2023 Arthrocentesis aspir &/inj major jt/bursa w/o us Garrison Lee PA-C Work Phone: Start: 06-09-2022 Radiologic exam knee complete 4/more views Garrison Lee PA-C Work Phone: Start: 06-09-2022 Arthrocentesis aspir &/inj major jt/bursa w/o us Garrison Lee PA-C Work Phone: Start: 12-01-2021 Arthrocentesis aspir &/inj major jt/bursa w/o us Garrison Lee PA-C Work Phone: Start: 01-21-2021 Radiologic exam knee complete 4/more views Garrison Lee PA-C Work Phone: Plan of Treatment Date Care Activity Detail Author Start: 2035 RSV Vaccine (1 - 1-dose 75+ series) RSV Vaccine (1 - 1-dose 75+ series) [facility] Start: 04-30-2024 Covid-19 Vaccine ( season) Covid-19 Vaccine ( season) [facility] Start: 04-30-2024 Covid-19 Vaccine ( season) Covid-19 Vaccine ( season) [facility] Start: 04-30-2024 Influenza vaccination Influenza Vaccine (#1) [facility] Start: 01-17-2024 [facility] Start: 08-30-2023 Depression Assessment Depression Assessment [facility] Start: 04-30-2023 Influenza vaccination [facility] Start: 08-30-2022 DEPRESSION ASSESSMENT DEPRESSION ASSESSMENT [facility] Start: 04-30-2022 Influenza vaccination [facility] Start: 08-30-2021 DEPRESSION ASSESSMENT DEPRESSION ASSESSMENT [facility] Start: 2020 RSV Vaccine (1 - 1-dose 60+ series) RSV Vaccine (1 - 1-dose 60+ series) [facility] Start: 2010 SHINGRIX VACCINE (1 of 2) SHINGRIX VACCINE (1 of 2) [facility] Start: 2005 COLOGUARD (FIT-DNA) COLOGUARD (FIT-DNA) [facility] Start: 2005 Colonoscopy COLONOSCOPY [facility] Start: 2005 COLORECTAL CANCER SCREENING COLORECTAL CANCER SCREENING [facility] Start: [address] COLONOGRAPHY [facility] Start: 2005 DIABETES SCREEN DIABETES SCREEN [facility] Start: 2005 Diabetes Screening Diabetes Screening [facility] Start: 2005 FECAL OCCULT BLOOD FECAL OCCULT BLOOD [facility] Start: 2005 Lipid panel Lipid Screening [facility] Start: 2005 LIPID SCREEN LIPID SCREEN [facility] Start: 2005 Screening for malignant neoplasm of colon [facility] Start: 2005 SIGMOIDOSCOPY SIGMOIDOSCOPY [facility] Start: 2000 Mammography MAMMOGRAM [facility] Start: 2000 Screening for malignant neoplasm of breast Mammogram Screening [facility] Start: 1990 HPV TESTING HPV TESTING [facility] Start: 1990 Screening for malignant neoplasm of cervix HPV Testing [facility] Start: 1981 PAP TESTING PAP TESTING [facility] Start: 1981 Screening for malignant neoplasm of cervix [facility] Start: 1979 Urine microalbumin profile [facility] Start: 1978 Anxiety Screening Anxiety Screening [facility] Start: 1978 Depression Screening Depression Screening [facility] Start: 1978 HEPATITIS C SCREENING HEPATITIS C SCREENING [facility] Start: 1978 Hepatitis C screening Hepatitis C Screening [facility] Start: 1978 HIV SCREENING HIV SCREENING [facility] Start: 1978 HIV screening HIV Screening [facility] Start: 1972 Adult depression screening assessment DEPRESSION SCREENING [facility] Start: 1965 COVID-19 VACCINE (1) COVID-19 VACCINE (1) [facility] Start: 01-10-1961 COVID-19 VACCINE (#1) COVID-19 VACCINE (#1) [facility] Comprehensive metabo lic 2000 panel - Serum or Plasma [facility] MG Breast - bilatera l Screening [facility] Immunizations Immunization Date Immunization Notes Care Provider Sandy romero 10-10-2020 zoster vaccine, live Tiffanie Johnson Other [facility] 07-08-2020 influenza virus vaccine, split virus (incl. purified surface antigen) Tiffanie Johnson Other [email or web address] Other 07-08-2020 zoster vaccine, live Tifafnie Johnson Other [facility] 07-08-2020 influenza virus vaccine, unspecified formulation Carmel Ford RT(R) [facility] Payers Date Payer Category Payer Self-pay [id number] 2015 Private Health Insurance [employer] PPO [id number] 2015-Present [phone] [address] [place] [address] PPO [id number] 2015 Private Health Insurance [id number] 1960 Unknown [id number] 1960 Unknown [id number] 1960 Unknown [id number] 1960 Unknown [id number] 1960 Unknown [id number] 1959 Private Health Insurance [facility] [id number] 1959 Private Health Insurance [facility] [id number] Unknown [id number] Unknown 1991 [id number] Social History Date Type Detail Facility Tobacco smoking stat [facility] Tobacco smoking consumption unknown [facility] Start: 1960 Sex Assigned At Not on file C [facility] Start: 12-22-2020 End: 06-09-2022 Exposure to SARS-CoV-2 (event) Not sure [facility] Start: 08-06-2020 End: 10-26-2023 Sex Assigned At [facility] Start: 08-06-2020 End: 10-26-2023 History of Social function [facility] Adult Depression Screening Assessment 3 [facility] Start: 1960 Sex Assigned At Female F [facility] Start: 05-15-2024 Tobacco smoking stat [facility] Never smoked tobacco (finding) [facility] Clinical Notes 12-01-2021 to 10-29-2023 Garrison Lee PA-C - 10/29/2023 11:55 AM Carmel Melara RT(R) - 10/29/2023 11:34 AM EST Note Date & Type Note Facility 10-29-2023 Note HNO ID: [id number] Author: GARRISON LEE PA-C Service: ? Author Type: Physician Auto Wrecker Type: Progress Notes Filed: 10/29/2023 12:22 Note [...] 13:50/mile pace. Pain started at about the fdc point and increased until I was finished. [...] has a race coming up soon in [facility] where she will be power walking a [...] May follow-up as needed Garrison Lee PA-C [facility] 10-29-2023 Note HNO ID: [id number] Author: CARMEL FORD RT(R) Service: ? Author [...] PATIENT PRESENTS WITH AN IMPLANTABLE OR ATTACHED MUSIC CATALOGUER: No RADIOLOGY DEPARTMENT: General X-ray: Exam(s) Completed: Lower Extremity X-Ray(s): Knee, AP / Lat / Tunne / Merchant Left and Wt. Bearing PERIPHERAL IV DATA: Not applicable SIGNED BY: RT Angela(R) October 29, 2023 11:34 AM [facility] 10-29-2023 History of Present illness Narrative [...] 13:50/mile pace. Pain started at about the fdc point and increased until I was finished. [...] has a race coming up soon in [facility] where she will be power walking a [...] Garrison Lee PA-C documented in this encounter [facility] 10-29-2023 History of Present illness Narrative Radiology [...] PATIENT PRESENTS WITH AN IMPLANTABLE OR ATTACHED MUSIC CATALOGUER: No RADIOLOGY DEPARTMENT: General X-ray: Exam(s) Completed: Lower Extremity X-Ray(s): Knee, AP / Lat / Tunne / Merchant Left and Wt. Bearing PERIPHERAL IV DATA: Not applicable SIGNED BY: RT Angela(R) October 29, 2023 11:34 AM documented in this encounter [facility] 07-27-2023 Evaluation note Encounter Date Diagnosis Assessment [...] (ICD-10 - M54.2) Order for PT handwritten [email or web address] Other 07-05-2023 NoteHNO ID: [id number] Author: Garrison Lee PA-C Service: ? Author Type: Physician Auto Wrecker Type: Progress Notes Filed: 03/03/2023 10:43 AM [...] remains very active and does long distance [employer] races. These activities seem to flareup the [...] knee joint Informed Consent Consent Obtained: Written Silva Protocol A moment to CARE was completed. [...] We will follow-up as symptoms dictate. [facility] History of Present illness Narrative* Garrison Lee [...] remains very active and does long distance [employer] races. These activities seem to flareup the [...] knee joint Informed Consent Consent Obtained: Written Silva Protocol A moment to CARE was completed. [...] dictate. Garrison Lee PA-C [facility] History of Present illness Narrative* Garrison Lee [...] knee joint Informed Consent Consent Obtained: Written Silva Protocol A moment to CARE was completed. [...] needed Garrison Lee PA-C [facility] History of Present illness Narrative* Kriss Cornelius, RT(R) - 06/09/2022 11:20 AM EDT pain documented in [facility]-2022 NotePROCEDURE: XR ANKLE RT MIN [...] Electronically authenticated by: HOMERO DONALDSON Date: 2022-06-02 12:[facility]10-04-2022 NotePROCEDURE: XR ANKLE RT MIN [...] Electronically authenticated by: HOMERO DONALDSON Date: 2022-06-02 12:[facility]04-04-2022 History of Present illness Narrative* [...] knee joint Informed Consent Consent Obtained: Written Silva Protocol A moment to CARE was completed. [...] needed. Garrison Lee PA-C [facility]* Diagnosis Primary osteoarthritis of left knee- Primary Primary localized osteoarthrosis, lower leg documented in this encounter [facility]* Diagnosis Primary osteoarthritis of left knee- Primary Primary localized osteoarthrosis, lower leg documented in this encounter [facility]* Diagnosis Primary osteoarthritis of left knee- Primary Primary localized osteoarthrosis, lower leg documented in this encounter [facility] noteNo CallMDUnion Star [employer] ([employer]) Other Evaluation note* Diagnosis Primary osteoarthritis of left knee- Primary Primary localized osteoarthrosis, lower leg It band syndrome, left documented in this encounter [facility] noteNo assessment information availableF[facility] Work Phone: Evaluation note* Diagnosis Primary osteoarthritis of left knee Primary localized osteoarthrosis, lower leg documented in this encounter [facility] note* Diagnosis Onset Date Resolution Status GERD (gastroesophageal reflux disease) acute Hypercholesterolemia acute Osteoporosis acute Screening for colon cancer a cute Screening mammogram for breast cancer acute Wellness examination acute [facility] Work Phone: Evaluation note* Diagnosis Primary osteoarthritis of left knee Primary localized osteoarthrosis, lower leg documented in this encounter [facility] note* Diagnosis Primary osteoarthritis of left knee Primary localized osteoarthrosis, lower leg documented in this encounter [facility] general Narrative - Reported* Type Description Date Medical History GERD without esophagitis Medical History Onychomycosis Medical History Low back pain with radiation Medical History Muscular pain Medical History Hyperlipidemia, unspecified Medical History Osteoporosis Medical History Plantar Fasciitis Surgical History Rhinoplasty Surgical History DEXA 10/16 hip - 2.8 Surgical History Tonsillectomy Hospitalization History SEE SURGICAL HX [employer] Other Reason for referral (narrative)* Diagnostic Procedure Only (Routine) - Closed Specialty Diagnoses / Procedures Referred By Becca colvin Referred To Contact XR IMAGING Diagnoses Primary osteoarthritis of left knee Procedures XR KNEE GENERAL 4V AP BOTH/PA BOTH/LAT/MERC LEFT RADIOLOGIC EXAM KNEE COMPLETE 4/MORE VIEWS Garrison Lee PA-C [address] [place] [address] Xr Imaging Referral ID Status Reason Start Date Expiration Date V isits Requested Visits Authorized [id number] Closed Auto-Generate d Referral 06/05/2022 07/05/2023 1 1 [facility] for referral (narrative)* Diagnostic Procedure Only (Routine) - Closed Specialty Diagnoses / Procedures Referred By Contac t Referred To Contact XR IMAGING Diagnoses Primary osteoarthritis of left knee Procedures XR KNEE GENERAL 4V AP BOTH/PA BOTH/LAT/MERC LEFT RADIOLOGIC EXAM KNEE COMPLETE 4/MORE VIEWS Garrison Lee PA-C [address] [facility] [place] [address] [place] [address] Referral ID Status Reason Start Date Expiration Date V isits Requested Visits Authorized [id number] Closed Auto-Generate d Referral 10/26/2023 11/24/2024 1 1 [facility] for referral (narrative)* Diagnostic Procedure Only (Routine) - Closed Specialty Diagnoses / Procedures Referred By Contac t Referred To Contact XR IMAGING Diagnoses Primary osteoarthritis of left knee Procedures XR KNEE GENERAL 4V AP BOTH/PA BOTH/LAT/MERC LEFT RADIOLOGIC EXAM KNEE COMPLETE 4/MORE VIEWS Garrison Lee PA-C [address] [place] [address] [place] [address] Referral ID Status Reason Start Date Expiration Date V isits Requested Visits Authorized [id number] Closed Auto-Generate d Referral 10/26/2023 11/24/2024 1 1 [facility] for referral (narrative)* Diagnostic Procedure Only (Routine) - Closed Specialty Diagnoses / Procedures Referred By Contac t Referred To Contact XR IMAGING Diagnoses Primary osteoarthritis of left knee Procedures XR KNEE GENERAL 4V AP BOTH/PA BOTH/LAT/MERC LEFT RADIOLOGIC EXAM KNEE COMPLETE 4/MORE VIEWS Garrison Lee PA-C [address] [facility] [place] [address] [place] [address] Referral ID Status Reason Start Date Expiration Date V isits Requested Visits Authorized [id number] Closed Auto-Generate d Referral 06/05/2022 07/05/2023 1 1 [facility] for visit Narrative* Diagnostic Procedure Only (Routine) - Closed Specialty Diagnoses / Procedures Referred By Contac t Referred To Contact XR IMAGING Diagnoses Primary osteoarthritis of left knee Procedures XR KNEE GENERAL 4V AP BOTH/PA BOTH/LAT/MERC LEFT RADIOLOGIC EXAM KNEE COMPLETE 4/MORE VIEWS Garrison Lee, KRISTIANC [address] [place] [address] [place] [id number] Referral ID Status Reason Start Date Expiration Date V isits Requested Visits Authorized [id number] Closed Auto-Generate d Referral 10/26/2023 11/24/2024 1 1 [facility] Medications Administered Section Inactive Administered Medications - [...] or prosecute any alcohol or drug abuse patient.[facility] Center[facility] the event this information is protected by the Federal Confidentiality of Alcohol and Drug Abuse Patient Records regulations: The Federal rules restrict any use of the information to criminally investigate or prosecute any alcohol or drug abuse patient.[facility] Center[facility] the event this information is protected by the Federal Confidentiality of Alcohol and Drug Abuse Patient Records regulations: The Federal rules restrict any use of the information to criminally investigate or prosecute any alcohol or drug abuse patient.[facility] CenterIn the event this information is protected by the Federal Confidentiality of Alcohol and Drug Abuse Patient Records regulations: The Federal rules restrict any use of the information to criminally investigate or prosecute any alcohol or drug abuse patient.[facility] CenterIn the event this information is protected by the Federal Confidentiality of Alcohol and Drug Abuse Patient Records regulations: The Federal rules restrict any use of the information to criminally investigate or prosecute any alcohol or drug abuse patient.[facility] CenterIn the event this information is protected by the Federal Confidentiality of Alcohol and Drug Abuse Patient Records regulations: The Federal rules restrict any use of the information to criminally investigate or prosecute any alcohol or drug abuse patient.[facility] CenterIn the event this information is protected by the Federal Confidentiality of Alcohol and Drug Abuse Patient Records regulations: The Federal rules restrict any use of the information to criminally investigate or prosecute any alcohol or drug abuse patient.[facility] CenterIn the event this information is protected by the Federal Confidentiality of Alcohol and Drug Abuse Patient Records regulations: The Federal rules restrict any use of the information to criminally investigate or prosecute any alcohol or drug abuse patient.[facility] Reason for Visit (unrecogniz ed section and content) Reason Comments Established Patient Injections Swelling Reason Comments Established Patient Reason Comments Injections Reason Comments Radiology XR Reason Comments Follow Up Reason Comments Radiology XR Specialty Diagnoses / Procedures Referred By Contac t Referred To Contact XR IMAGING Diagnoses Primary osteoarthritis of left knee Procedures XR KNEE GENERAL 4V AP BOTH/PA BOTH/LAT/MERC LEFT RADIOLOGIC EXAM KNEE COMPLETE 4/MORE VIEWS Garrison Lee PA-C [address] [place] [place] [address] [place] [address] Referral ID Status Reason Start Date Expiration Date V isits Requested Visits Authorized [id number] Closed Auto-Generate d Referral 06/05/2022 07/05/2023 1 1 INFORMATION SOURCE (unrecogn ized section and content) DATE CREATED AUTHOR 01/09/2023 [facility] DATE CREATED AUTHOR AUTHOR'S ORGANIZ ATION 10/31/2023 [facility] DATE CREATED AUTHOR AUTHOR'S ORGANIZ ATION 02/27/2024 [facility] y[facility] Care Teams (unrecognized sec [...] BE BASED ON THE PRIMARY CLINICAL RECORDS. [facility]. provides no warranty or guarantee of the accuracy or completeness of information in this document.
[2024-07-25 12:23] LABS: C Reactive Protein <0.50 mg/dL (<=0.50)
[2024-07-25 12:32] LABS: Bilirubin Urine NEGATIVE (NEGATIVE); Blood Urine NEGATIVE (NEGATIVE); Clarity Urine CLEAR (CLEAR); Color Urine LT. YELLOW (YELLOW); Glucose Urine UA NEGATIVE (NEGATIVE); Ketones Urine NEGATIVE (NEGATIVE); Leukocyte Esterase Urine NEGATIVE (NEGATIVE); Nitrite Urine NEGATIVE (NEGATIVE); Protein Urine NEGATIVE (NEG/TRACE); Specific Gravity Urine <=1.005 (1.005-1.025); Urobilinogen Urine 0.2 EU/dL (0.2-1.0)
[2024-07-25 12:49] LABS: Bacteria Urine NONE SEEN #/HPF (NONE SEEN); Cast Seen? NONE SEEN #/LPF (NONE SEEN); Crystals Seen? None Seen #/HPF (None Seen); Mucus Urine NONE SEEN (NONE SEEN); RBC Urine 0-2 #/HPF (0-2); Squamous Epithelial Cell Urine RARE #/LPF (NONE/RARE); WBC Urine NONE SEEN #/HPF (NONE SEEN)
[2024-07-25 12:56] LABS: Erythrocyte Sedimentation Rate 42 mm/hr (<=30)
[2024-07-26 12:10] LABS: Complement C3, Serum 170 mg/dL (82-167); Complement C4, Serum 29 mg/dL (12-38)
[2024-07-26 15:09] LABS: Complement, Total (CH50) 58 U/mL (>41)
== END 2024-07-25 11:31 | disposition home or self-care (01) ==
LOC: LAB 11:32
PROVIDERS: PCP Family Medicine; Visit Provider Internal Medicine Rheumatology
DX: M81.0 Age-related osteoporosis without current pathological fracture (principal); Z79.899 Other long term (current) drug therapy; R76.0 Raised antibody titer
CPT/HCPCS: 36415; 81001; 85652; 86140; 86160; 86162

== ENCOUNTER 2024-08-02 11:31 | Outpatient (OUT) | payer OTHER, SELFPAY ==
--- OUTSIDE RECORDS SUMMARY | 2024-08-02 11:43 | XMS_ITS | CCD ---
Author Organization [facility] Care Team Providers Care Geographic Information Systems Analyst Name Role Phone Unavailable Primary Care Provider UnavailANALISA Martinez Admitting Unavailable ANALISA FARIA Attending Unavailable ALEX, DR TIFFANIE Perez Primary Care Unavailable ANALISA FARIA Admitting Unavailable ANALISA FARIA Attending Unavailable ALEX, DR TIFFANIE Perez Primary Care Unavailable ZIKAISERER, DR HOMERO Denton Consulting Unavailable BIENVENIDO, ANALISA Consulting Unavailable HARONNIEM, DR BENNETT Admitting Unavailable HAKIM, DR BENNETT [...] Unavailable Primary Care Provider UnavailTiffanie Silverio Unavailable MD Tiffanie Johnson Primary Care Provider [phone] MD Vlad Gallagher Attending Provider Vlad Gallagher Attending Unavailable Tiffanie Johnson Primary Care Unavailable Vlad Gallagher Admitting Unavailable Tiffanie Johnson Primary Care Unavailable Vlad Gallagher Admitting Unavailable Vlad Gallagher Attending Unavailable Unavailable Primary Care Provider UnavailMD Tiffanie Silverio Primary Care Provider MD Vlad Gallagher Attending Provider [phone] GARRISON LEE Attending Unavailable SELF Referring Unavailable GARRISON LEE Attending Unavailable GARRISON LEE Referring Unavailable Allergies Allergy Classification Reported Allergen(s) Allergy Type Date of Onset Reaction(s) Facility (2 sources) Non-steroidal anti-inflammato ry agent; Translations: [NSAIDS (NON-STEROIDAL ANTI-INFLAMMATO RY DRUG)] Drug Intolerance 09-13-19 Other: See Comments [facility] Work Phone: (8 sources) Non-steroidal anti-inflammato ry agent Drug Intolerance 09-13-19 Other: See Comments [facility] Work Phone: (2 sources) patient allergy list reviewed by nurse or physicia Propensity to adverse reactions 03-21-20 Comment:Done [facility] Other (2 sources) Allergies Reconciled Propensity to adverse reactions Unknown [facility] Other Medications Current Medications Medication Drug Class(es) Dates Sig (Normalized) Sig (Original) alendronic acid 70 mg oral tablet (9 sources) Bisphosphonate Start: 07-11-2018 take 1 tablet by mouth every week alendronate (FOSAMAX) 70 mg tablet Take 70 mg by mouth once each week. 4 07/11/2018 Active Comment on above: Take 70 mg by mouth once each week. Ascorbic Acid (9 sources) Vitamin C ascorbic acid (VITAMIN C ORAL) Take by mouth. Active ascorbic acid (V ITAMIN C ORAL) Take by mouth. 0 Active Comment on above: Take by mouth. atorvastatin 10 mg oral tablet (10 sources) HMG-CoA Reductase Inhibitor Start: 07-19-20 take 1 tablet by mouth once daily atorvastatin (LIPITOR) 10 mg tablet Take 10 mg by mouth once daily. 2 07/19/2018 Active Comment on above: Take 10 mg by mouth once daily. baclofen 10 mg oral tablet (11 sources) gamma-Aminobutyric Acid-ergic Agonist Start: 07-22-20 End: 05-15-20 24 baclofen (LIORESAL) 10 mg tablet Take 10 mg by mouth as needed. 4 07/22/2018 Active Comment on above: Take 10 mg by mouth as needed. caffeine 175 mg oral tablet (9 sources) Central Nervous System Stimulant, Methylxanthine CAFFEINE ORAL Take 175 mg by mouth. Active Comment on above: Take 175 mg by mouth . calcium citrate/vitamin D3 (CITRACAL + D ORAL) (9 sources) calcium citrate/vitamin D3 (CITRACAL + D ORAL) Take by mouth. Active calcium citrate/ vitamin D3 (CITRACAL + D ORAL) Take by mouth. 0 Active Comment on above: Take by mouth. citalopram 40 mg oral tablet (16 sources) Serotonin Reuptake Inhibitor Start: 01-25-2024 End: [...] daily. cyanocobalamin, vitamin B-12, (VITAMIN B-12 ORAL) (9 sources) cyanocobalamin, vitamin B-12, (VITAMIN B-12 ORAL) Take by mouth. Active cyanocobalamin, vitamin B-12, (VITAMIN B-12 ORAL) Take by mouth. 0 Active Comment on above: Take by mouth. denosumab (2 sources) RANK Ligand Inhibitor Start: 07-28-2022 Prolia 60MG/ML Prolia( 60MG/ML Subcutaneous ) Active -Hx Entry Subcutaneous for 0 Dr. Gallagher *Pick strength-form from [employer] for eRX* Jun, Active estradiol 0.1 mg/ml vaginal cream (18 sources) Estrogen Start: 01-17-2024 End: 04-10-2024 Estradiol [...] twice weekly for 0 *Pick strength-form from [employer] for eRX* Jul, Active Start: 06-09-2018 estradiol (EST RACE) 0.01 % (0.1 mg/gram) vaginal cream Use 1 g vaginally twice a week. 3 06/09/2018 Active Comment on above: Use 1 g vaginally tw ice a week. flaxseed oil (OMEGA 3 ORAL) (9 sources) flaxseed oil (OM EGA 3 ORAL) Take by mouth. Active flaxseed oil (OM EGA 3 ORAL) Take by mouth. 0 Active Comment on above: Take by mouth. glucosamine/chondr spears A sod (OSTEO BI-FLEX ORAL) (9 sources) glucosamine/sandra dr tory Pulido sod (OSTEO BI-FLEX ORAL) Take by mouth. Active glucosamine/sandra dr tory Pulido sod (OSTEO BI-FLEX ORAL) Take by mouth. 0 Active Comment on above: Take by mouth. Lidocaine-Glycerin 2% (2 sources) Start: 06-30-2022 Lidocaine-Glycerin 2% lidocaine-glycerin 2%, 1 (one) kit as needed # 1, 06/30/2022, Ref. x3. Active mucous membrane as needed for 0 alternative to lidocaine 2% gel...? *Reorder from [employer] for eRx and Interaction Alerts* Jun, Active Lidocaine-Hyalur At-Jxtk-Oknm (1 source) Start: 05-15-2024 Lidocaine-Hyalur Ju-Laag-Ffcn Active 1 APPLIC TOPICAL Twice daily May 15, 2024 12:00am Magnesium (9 sources) Magnesium 250 mg tab Take 250 mg by mouth. Active Magnesium 250 mg tab Take 250 mg by mouth. 0 Active Comment on above: Take 250 mg by mouth . meloxicam 15 mg oral tablet (6 sources) Nonsteroidal Anti-inflammatory Drug take 1 tablet by mouth once daily meloxicam (MOBIC) 15 mg tablet Take 15 mg by mouth once daily. Active Comment on above: Take 15 mg by mouth once daily. MULTIVITAMIN ORAL (9 sources) MULTIVITAMIN ORA L Take by mouth. Active MULTIVITAMIN ORA L Take by mouth. 0 Active Comment on above: Take by mouth. raNITIdine 150 mg oral tablet (9 sources) Histamine-2 Receptor Antagonist Start: 07-02-2018 take 1 tablet by mouth twice daily ranitidine (ZANTAC) 150 mg tablet Take 150 mg by mouth twice daily. 4 07/02/2018 Active Comment on above: Take 150 mg by mouth twice daily. Completed/Discontinued Medications Medication Drug Class(es) Dates Sig (Normalized) Sig (Original) 10 ml lidocaine hydrochloride 10 mg/ml injection (8 sources) Antiarrhythmic, Amide Local Anesthetic Start: 07-25-2024 End: 07-25-2024 lidocaine (PF) 10 mg/mL (1 %) 4 mL injection (XYLOCAINE) Start: 07-25-2024 End: 07-25-2024 4 mL, Injection - FOR ORTHO USE ONLY, ONCE, 1 dose, Starting on Wed07/25/24 at 1419, Until Wed07/25/24 at 1419 Start: 05-15-2024 Lidocaine Hcl Active 1 APPLIC TOPICAL Daily May 15, 2024 12:00am Start: 03-03-2023 End: 03-03-2023 lidocaine (PF) 10 mg/mL (1 % ) 4 mL injection (XYLOCAINE) Start: 06-09-2022 End: 06-09-2022 lidocaine (PF) 20 mg/mL (2 % ) 4 mL injection (XYLOCAINE) Start: 12-01-2021 End: 12-01-2021 lidocaine (PF) 10 mg/mL (1 % ) 4 mL injection (XYLOCAINE) 1 ml triamcinolone acetonide 40 mg/ml injection (7 sources) Corticosteroid Start: 07-25-2024 End: 07-25-2024 triamcinolone acetonide 40 mg injection (KeNALog 40) Start: 07-25-2024 End: 07-25-2024 40 mg, Injection - FOR ORTHO USE ONLY, ONCE, 1 dose, Starting on Wed07/25/24 at 1419, Until Wed07/25/24 at 1419 Start: 03-03-2023 End: 03-03-2023 triamcinolone acetonide 40 m g injection (KeNALog 40) Start: 06-09-2022 End: 06-09-2022 [...] sources) Onychomycosis; Translations: [Tinea unguium] Episodic Osteoarthritis (10 sources) Osteoarthritis of left knee joint; Translations: [Unilateral primary osteoarthritis, left knee] Onset: 10-29-2023 Chronic Osteoporosis (8 sources) Age-related osteoporosis without current pathological fracture; Translations: [Osteoporosis] Onset: 12-02-2022 Chronic Other aftercare (1 source) 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; Translations: [OTH [facility] CURRENT DRUG THERAPY] Onset: 12-11-2022 Episodic Other [...] related to travel; Translations: [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 It may contain inaccuracies: misspellings, inaccurate syntax or word sense that escaped review. CHIEF COMPLAINT: Joselito Carver is a 64 year old female who presents today for follow up of left knee pain and new evaluation of right knee pain HISTORY OF PRESENT ILLNESS: PAIN EVALUATION 07/23/20242047 Pain Level: 6 Pain Location: -- bilateral knee Description: Aching;Sharp Duration Units: Years Frequency: Intermittent Intervention/Comfort measure: Medication;Cold;Distr actions Comments: She is here for bilateral knee pain. Left is worse than the right. No new or recent injury. Pain increases with stairs. HISTORY: Joselito Carver is here for follow up of complaints of recurrent left knee pain she got a few months of relief from the steroid injection. She states she has some pain in the posterior knee and feels some fullness. She has severe medial compartment arthritis in this knee. The right knee she says started hurting her more recently and has become more significant. Pain is mostly at the medial aspect of this knee. No specific injuries that have occurred and no previous injections or surgeries on this right knee. She did have her left knee scoped many years ago. No other musculoskeletal complaints ROS: REVIEW OF SYMPTOMS: Constitutional: patient denies any recent fever or significant change in weight Gastrointestinal: patient denies any current abdominal discomfort Musculoskeletal: as noted in the HPI Neurologic: as noted in the HPI SOCIAL HISTORY: Tobacco Use: Not on file [...] have trouble getting onto the exam table. bilateral knee exam no effusion, palpable bakers cyst left knee varus Alignment Flexion contracture left knee of about 5 degrees Right knee active 0 extension, flexion 120. central patellar tracking/ no patellofemoral crepitation No Pain with patellar compression, positive pain with palpating medial compartment, no Pain with palpating lateral compartment. stable to varus and valgus stresses. Carline is negative stable Anterior/posterior drawer. negative McMurrays No pain with palpation of pes anserine bursa Calf soft and nontender. Hip exam-status post right total hip replacement negative log roll, reduced ER/IR, no pain with axial loading NV intact L3-S1 with 2+ DP pulse. RADIOGRAPHS: None today IMPRESSION: Encounter Diagnosis ICD-10-CM 1. Primary osteoarthritis of left knee M17.12 2. Primary osteoarthritis of right knee M17.11 Large Joint Arthro/Inj: bilateral knee joints Informed Consent Consent Obtained: Written [place]nis Protocol A moment to CARE was completed. [...] assessment and interventions applicable. No implant(s) inserted. 07/25/2024 2:19 PM The procedure site was prepped in the usual sterile fashion. Site: bilateral knee joints Medications (Right): 40 mg triamcinolone acetonide 40 mg/mL Medications (Left): 40 mg triamcinolone acetonide 40 mg/mL Anesthetics (Right): 4 mL lidocaine (PF) 10 mg/mL (1 %) Anesthetics (Left): 4 mL lidocaine (PF) 10 mg/mL (1 %) Outcome: Tolerated well, no immediate complications Post-injection instructions were reviewed with the patient and the patient voiced understanding of these instructions. SIGN OUT No specimen collected. All instruments, equipment, possible retained foreign bodies accounted for. Post-procedure follow-up management communicated and Plan of Care Visit completed when applicable Plan: Patient with recurrent symptoms in the left knee and more severe symptoms in the right knee. CSI to both knees today Discusse (more content not included)... Normal [facility] Large Joint Arthro/Inj: bila teral knee jointson 07-25-2024 Garrison Lee PA-C 07/25/2024 2:21 PM Large Joint Arthro/Inj: bilateral knee joints Informed Consent Consent Obtained: Written Ennis Protocol A moment to CARE was completed. [...] assessment and interventions applicable. No implant(s) inserted. 07/25/2024 2:19 PM The procedure site was prepped in the usual sterile fashion. Site: bilateral knee joints Medications (Right): 40 mg triamcinolone acetonide 40 mg/mL Medications (Left): 40 mg triamcinolone acetonide 40 mg/mL Anesthetics (Right): 4 mL lidocaine (PF) 10 mg/mL (1 %) Anesthetics (Left): 4 mL lidocaine (PF) 10 mg/mL (1 %) Outcome: Tolerated well, no immediate complications Post-injection instructions were reviewed with the patient and the patient voiced understanding of these instructions. SIGN OUT No specimen collected. All instruments, equipment, possible retained foreign bodies accounted for. Post-procedure follow-up management communicated and Plan of Care Visit completed when applicable [facility] XR hand BI 2Von 02-15-2024 XR hand BI 2V [facility] [address] XRay Report Signed Patient: Joselito Carver MR#: [id number] 2 : 1960 Acct:[id number] Age/Sex: 63 / F ADM Date: 02/15/24 Loc: ICXD Room: Type: [facility] Attending Dr: Vlad Gallagher MD Copies to: Vlad aGllagher MD Ordering Provider: Vlad Gallagher MD Date [...] Sanjana Liao M.D.02/15/2024 4:19 PM Dictation Location: [place] [address] Transcribed By: [facility] 02/15/24 161 Dictated By: Sanjana Liao MD 02/15/24 161 Signed By: 02/15/24 161 Normal [facility] ESTUARDO Antinuclear Antibodieson 01-17-2024 Antinuclear Abs, IFA Positive Critically abnormal . [facility] Comment on above: Result Comment: Nega tive <1:80 Borderline 1:80 Positive >1:80 Performed By: #### T SH3, ESR, CRP, CBC, CMP, PTH, MG, PHOS #### [address] #### ESTUARDO #### [facility] , Note 1 Normal . [facility] Comment on above: Result Comment: Sonia na Potential Disease Association Homogeneous Systemic Lupus Erythematosus, Drug Induced Systemic Lupus Erythematosus, Chronic Autoimmune hepatitis, Juvenile Idiopathic Arthritis Speckled Sjogren Syndrome, Systemic Lupus Erythematosus, Subacute Cutaneous Lupus, Lupus, Congenital Heart Block, Mixed Connective Tissue Disease, Scleroderma-diffuse, Scleroderma-Autoimmune Myositis Overlap Syndrome, Systemic Lupus Dujssksaokeys-Bpedxjwradf-Sufzbqduat Myositis Overlap Syndrome, Systemic Autoimmune Rheumatic Disease, [...] Cytopenias, Linear Scleroderma, Antiphospholipid Syndrome Performed at: [facility] [address] [id number] Communications Lead: Haresh Obregon PhD, Phone: [phone] PERFORMED BY: [place] [address] PATHOLOGIST ELECTRIC METER REPAIRER HELPER TIFFANIE PICKARD M.D. Performed By: #### T SH3, ESR, CRP, CBC, CMP, PTH, MG, PHOS #### [address] #### ESTUARDO #### [facility] , Speckled Pattern 1:160 High . [facility] Comment on above: Result Comment: ICAP nomenclature: [id number] Performed By: #### T SH3, ESR, CRP, CBC, CMP, PTH, MG, PHOS #### [facility] [address] [place] [address] #### ESTUARDO #### [facility] , Alanine aminotransferase [En zymatic activity/volume] in Serum or PlasmaOrdered By: Vlad Gallagher on 01-17-2024 ALT [Catalytic activity/Vol] 21 U/L Normal 7-52 [facility] Comment on above: Performed By: #### T SH3, ESR, CRP, CBC, CMP, PTH, MG, PHOS #### [facility] [address] [place] [address] #### ESTUARDO #### [facility] , Albumin [Mass/volume] in Ser um or Plasma by Bromocresol green (BCG) dye binding methoOrdered By: Vlad Gallagher on 01-17-2024 Albumin BCG dye [Mass/Vol] 4.3 g/dL 3.5-5.7 [facility] Alkaline phosphatase [Enzyma tic activity/volume] in Serum or PlasmaOrdered By: Vlad Gallagher on 01-17-2024 ALP [Catalytic activity/Vol] 70 U/L Normal 34-104 [facility] Comment on above: Performed By: #### T SH3, ESR, CRP, CBC, CMP, PTH, MG, PHOS #### [place] [address] [place] #### ESTUARDO #### [facility] , Aspartate aminotransferase [ Enzymatic activity/volume] in Serum or PlasmaOrdered By: Vlad Gallagher on 01-17-2024 AST [Catalytic activity/Vol] 23 U/L Normal 13-39 [facility] Comment on above: Performed By: #### T SH3, ESR, CRP, CBC, CMP, PTH, MG, PHOS #### [place] [address] [place] #### ESTUARDO #### [facility] , Automated basophil %Ordered By: Vlad Gallagher on 01-17-2024 Basophils/100 WBC (Bld) 0.8 % Normal . [facility] Comment on above: Performed By: #### T SH3, ESR, CRP, CBC, CMP, PTH, MG, PHOS #### [place] [address] [place] #### ESTUARDO #### [facility] , Automated basophil countOrde red By: Vlad Gallagher on 01-17-2024 Basophils (Bld) [#/Vol] 0.0 10*3/uL Normal 0.0-0.2 [facility] Comment on above: Performed By: #### T SH3, ESR, CRP, CBC, CMP, PTH, MG, PHOS #### [place] [address] [place] #### ESTUARDO #### [facility] , Automated blood monocyte cou ntOrdered By: Vlad Gallagher on 01-17-2024 Monocytes (Bld) [#/Vol] 0.6 10*3/uL Normal 0.0-0.8 [facility] Comment on above: Performed By: #### T SH3, ESR, CRP, CBC, CMP, PTH, MG, PHOS #### [facility] [address] [place] [address] [place] #### ESTUARDO #### [facility] , Automated eosinophil %Ordere d By: Vlad Gallagher on 01-17-2024 Eosinophils/100 WBC (Bld) 2.7 % Normal . [facility] Comment on above: Performed By: #### T SH3, ESR, CRP, CBC, CMP, PTH, MG, PHOS #### [facility] [address] [place] [address] [place] #### ESTUARDO #### [facility] , Automated eosinophil countOr dered By: Vlad Gallagher on 01-17-2024 Eosinophils (Bld) [#/Vol] 0.2 10*3/uL Normal 0.0-0.45 [facility] Comment on above: Performed By: #### T SH3, ESR, CRP, CBC, CMP, PTH, MG, PHOS #### [facility] [address] [place] [address] [place] #### ESTUARDO #### [facility] , Automated monocyte %Ordered By: Vlad Gallagher on 01-17-2024 Monocytes/100 WBC (Bld) 10.3 % Normal . [facility] Comment on above: Performed By: #### T SH3, ESR, CRP, CBC, CMP, PTH, MG, PHOS #### [place] [address] [place] #### ESTUARDO #### [facility] , Automated neutrophil %Ordere d By: Vlad Gallagher on 01-17-2024 Neutrophils/100 WBC (Bld) 62.8 % Normal . [facility] Comment on above: Performed By: #### T SH3, ESR, CRP, CBC, CMP, PTH, MG, PHOS #### [facility] [address] [place] [address] [place] #### ESTUARDO #### [facility] , Bilirubin.total [Mass/volume ] in Serum or PlasmaOrdered By: Vlad Gallagher on 01-17-2024 Bilirubin [Mass/Vol] 0.3 mg/dL Normal 0.3-1.0 [facility] Comment on above: Performed By: #### T SH3, ESR, CRP, CBC, CMP, PTH, MG, PHOS #### [facility] [address] [place] [address] [place] #### ESTUARDO #### [facility] , C reactive protein [Mass/vol ume] in Serum or PlasmaOrdered By: Vlad Gallagher on 01-17-2024 CRP [Mass/Vol] < 0.5 mg/dL 0.0-0.5 [facility] C-Reactive Proteinon 024 CRP [Mass/Vol] mg/L Normal 0.0-0.5 [facility] Comment on above: Performed By: #### T SH3, ESR, CRP, CBC, CMP, PTH, MG, PHOS #### [facility] [address] [place] [address] [place] #### ESTUARDO #### [facility] , Calcium [Mass/volume] in Ser um or PlasmaOrdered By: Vlad Gallagher on 01-17-2024 Calcium [Mass/Vol] 9.6 mg/dL Normal 8.6-10.3 [facility] Comment on above: Performed By: #### T SH3, ESR, CRP, CBC, CMP, PTH, MG, PHOS #### [facility] [address] [place] [address] [place] #### ESTUARDO #### [facility] , Carbon dioxide, total [Moles /volume] in Serum or PlasmaOrdered By: Vlad Gallagher on 01-17-2024 CO2 [Moles/Vol] 28.0 mmol/L Normal 21.0-31.0 [facility] Comment on above: Performed By: #### T SH3, ESR, CRP, CBC, CMP, PTH, MG, PHOS #### [place] [address] [place] #### ESTUARDO #### [facility] , Chloride [Moles/volume] in S grayson or PlasmaOrdered By: Vlad Gallagher on 01-17-2024 Chloride [Moles/Vol] 105 mmol/L Normal 98-107 [facility] Comment on above: Performed By: #### T SH3, ESR, CRP, CBC, CMP, PTH, MG, PHOS #### [place] [address] [place] #### ESTUARDO #### [facility] , Complete Blood Count Auto Di ffon 01-17-2024 Mean Corpuscular HGB Conc 33.1 g/dL Normal 32.0-35.0 [facility] Comment on above: Performed By: #### T SH3, ESR, CRP, CBC, CMP, PTH, MG, PHOS #### [facility] [address] [place] [address] [place] #### ESTUARDO #### [facility] , NRBC% 0.1 /100{WBC} Normal 0-0.5 [facility] Comment on above: Performed By: #### T SH3, ESR, CRP, CBC, CMP, PTH, MG, PHOS #### [place] [address] [place] #### ESTUARDO #### [facility] , Comprehensive Metabolic Pane moriah 01-17-2024 Albumin [Mass/Vol] 4.3 g/dL Normal 3.5-5.7 [facility] Comment on above: Performed By: #### T SH3, ESR, CRP, CBC, CMP, PTH, MG, PHOS #### [facility] [address] [place] [address] [place] #### ESTUARDO #### [facility] , GFR/1.73 sq M.predicted MDRD (S/P/Bld) [Vol rate/Area] mL/min/{1.73_m2} Normal [facility] Comment on above: Performed By: #### T SH3, ESR, CRP, CBC, CMP, PTH, MG, PHOS #### [facility] [address] [place] [address] #### ESTUARDO #### [facility] , Creatinine [Mass/volume] in Serum or PlasmaOrdered By: Vlad Gallagher on 01-17-2024 Creatinine [Mass/Vol] 0.87 mg/dL Normal 0.60-1.20 [facility] Comment on above: Performed By: #### T SH3, ESR, CRP, CBC, CMP, PTH, MG, PHOS #### [address] #### ESTUARDO #### [facility] , Erythrocyte Sedimentation Ra michell 01-17-2024 ESR (Bld) [Velocity] 44 mm/h High 0-29 [facility] Comment on above: Result Comment: PERF ORMED BY: [place] [address] PATHOLOGIST ELECTRIC METER REPAIRER HELPER TIFFANIE PICKARD M.D. Performed By: #### T SH3, ESR, CRP, CBC, CMP, PTH, MG, PHOS #### [address] #### ESTUARDO #### [facility] , Erythrocyte distribution wid th [Ratio] by Automated countOrdered By: Vlad Gallagher on 01-17-2024 Erythrocyte distribution width (RBC) [Ratio] 14.5 % Normal 11.9-15.3 [facility] Comment on above: Performed By: #### T SH3, ESR, CRP, CBC, CMP, PTH, MG, PHOS #### [place] [address] [place] #### ESTUARDO #### [facility] , Erythrocyte sedimentation ra te by Photometric methodOrdered By: Vlad Gallagher on 01-17-2024 ESR Photometric method (Bld) [Velocity] 44 mm/hr 0-29 [facility] Erythrocytes [#/volume] in B lood by Automated countOrdered By: Vlad Gallagher on 01-17-2024 RBC (Bld) [#/Vol] 4.43 10*6/uL Normal 3.60-5.00 [facility] Comment on above: Performed By: #### T SH3, ESR, CRP, CBC, CMP, PTH, MG, PHOS #### [facility] [address] [place] [address] [place] #### ESTUARDO #### [facility] , Glucose [Mass/volume] in Ser um or PlasmaOrdered By: Vlad Gallagher on 01-17-2024 Glucose [Mass/Vol] 86 mg/dL Normal 70-100 [facility] Comment on above: ADA recommended refe rence rangeRandom Glucose Reference Range is dependent on time and content of last meal. Glucose of more than 200 mg/dL in a nonstressed, ambulatory subject supports the diagnosis of Diabetes Mellitus. Result Comment: [place] om Glucose Reference Range is dependent on time and content of last meal. Glucose of more than 200 mg/dL in a nonstressed, ambulatory subject supports the diagnosis of Diabetes Mellitus. ADA recommended reference range Performed By: #### T SH3, ESR, CRP, CBC, CMP, PTH, MG, PHOS #### [place] [address] [place] #### ESTUARDO #### [facility] , Hematocrit [Volume Fraction] of Blood by Automated countOrdered By: Vlad Gallagher on 01-17-2024 Hematocrit (Bld) [Volume fraction] 41.6 % Normal 34.0-46.4 [facility] Comment on above: Performed By: #### T SH3, ESR, CRP, CBC, CMP, PTH, MG, PHOS #### [facility] [address] [place] [address] [place] #### ESTUARDO #### [facility] , Hemoglobin [Mass/volume] in BloodOrdered By: Vlad Gallagher on 01-17-2024 Hemoglobin (Bld) [Mass/Vol] 13.8 g/dL Normal 11.8-15.4 [facility] Comment on above: Performed By: #### T SH3, ESR, CRP, CBC, CMP, PTH, MG, PHOS #### [facility] [address] [place] [address] [place] #### ESTUARDO #### [facility] , Leukocytes [#/volume] correc yoel for nucleated erythrocytes in Blood by Automated counOrdered By: Vlad Gallagher on 01-17-2024 WBC corrected for nucl RBC Auto (Bld) [#/Vol] 6.2 10*3/uL 3.8-11.6 [facility] Leukocytes [#/volume] in Blo od by Automated countOrdered By: Vlad Gallagher on 01-17-2024 WBC (Bld) [#/Vol] 6.2 10*3/uL Normal 3.8-11.6 [facility] Comment on above: Performed By: #### T SH3, ESR, CRP, CBC, CMP, PTH, MG, PHOS #### [place] [address] [place] #### ESTUARDO #### [facility] , Lymphocytes [#/volume] in Bl ood by Automated countOrdered By: Vlad Gallagher on 01-17-2024 Lymphocytes (Bld) [#/Vol] 1.5 10*3/uL Normal 1.00-4.8 [facility] Comment on above: Performed By: #### T SH3, ESR, CRP, CBC, CMP, PTH, MG, PHOS #### [place] [address] [place] #### ESTUARDO #### [facility] , Lymphocytes/100 leukocytes i n Blood by Automated countOrdered By: Vlad Gallagher on 01-17-2024 Lymphocytes/100 WBC (Bld) 23.4 % Normal . [facility] Comment on above: Performed By: #### T SH3, ESR, CRP, CBC, CMP, PTH, MG, PHOS #### [place] [address] [place] #### ESTUARDO #### [facility] , MCH [Entitic mass] by Automa yoel countOrdered By: Vlad Gallagher on 01-17-2024 MCH (RBC) [Entitic mass] 31.1 pg Normal 24.7-34.3 [facility] Comment on above: Performed By: #### T SH3, ESR, CRP, CBC, CMP, PTH, MG, PHOS #### [facility] [address] [place] [address] [place] #### ESTUARDO #### [facility] , MCHC Auto (RBC) [Mass/Vol]Or dered By: Vlad Gallagher on 01-17-2024 MCHC (RBC) [Mass/Vol] 33.1 g/dL 32.0-35.0 [facility] MCV [Entitic volume] by Auto mated countOrdered By: Vlad Gallagher on 01-17-2024 MCV (RBC) [Entitic vol] 93.9 fL Normal 80-100 [facility] Comment on above: Performed By: #### T SH3, ESR, CRP, CBC, CMP, PTH, MG, PHOS #### [place] [address] [place] #### ESTUARDO #### [facility] , Magnesium [Mass/volume] in S grayson or PlasmaOrdered By: Vlad Gallagher on 01-17-2024 Magnesium [Mass/Vol] 2.1 mg/dL Normal 1.9-2.7 [facility] [place] Comment on above: Performed By: #### T SH3, ESR, CRP, CBC, CMP, PTH, MG, PHOS #### [facility] [address] [place] [address] [place] #### ESTUARDO #### [facility] , Neutrophils [#/volume] in Bl ood by Automated countOrdered By: Vlad Gallagher on 01-17-2024 Neutrophils (Bld) [#/Vol] 3.9 10*3/uL Normal 1.8-7.7 [facility] Comment on above: Performed By: #### T SH3, ESR, CRP, CBC, CMP, PTH, MG, PHOS #### [facility] [address] [id number] [facility] #### ESTUARDO #### [facility] , No Panel InformationOrdered By: Vlad Gallagher on 01-17-2024 Anti-Nuclear Antibody Comment 2 See comment . [facility] Comment on above: Pattern Potential Di sease Association Homogeneous Systemic Lupus Erythematosus, Drug Induced Systemic Lupus Erythematosus, Chronic Autoimmune hepatitis, Juvenile Idiopathic Arthritis Speckled Sjogren Syndrome, Systemic Lupus Erythematosus, Subacute Cutaneous Lupus, Lupus, Congenital Heart Block, Mixed Connective Tissue Disease, Scleroderma-diffuse, Scleroderma-Autoimmune Myositis Overlap Syndrome, Systemic Lupus Pfebpxnozfhyv-Uyacccjdsvb-Kzazkkogtw Myositis Overlap Syndrome, Systemic Autoimmune Rheumatic Disease, [...] Cytopenias, Linear Scleroderma, Antiphospholipid Syndrome Performed at: [email or web address] [id number] Director: Haresh Obregon PhD, Phone: [phone] Estimated GFR (CKD-EPI) > 60.0 mL/Min [facility] Creatinine Clearance (Chem N/A [facility] Nucleated erythrocytes [Pres ence] in Blood by Automated countOrdered By: Vlad Gallagher on 01-17-2024 Nucleated RBC Auto Ql (Bld) 0.1 /100{WBC} 0-0.5 [facility] Parathyrin.intact [Mass/volu me] in Serum or PlasmaOrdered By: Vlad Gallagher on 01-17-2024 Parathyrin.intact [Mass/Vol] 40.8 pg/mL [facility] Parathyroid Hormone Intacton 01-17-2024 Parathyroid Hormone Intact 40.8 pg/mL Normal [facility] Comment on above: Result Comment: PERF ORMED BY: [place] [id number] PATHOLOGIST ELECTRIC METER REPAIRER HELPER TIFFANIE PICKARD M.D. Performed By: #### T SH3, ESR, CRP, CBC, CMP, PTH, MG, PHOS #### [place] [address] [place] #### ESTUARDO #### [facility] , Phosphate [Mass/volume] in S grayson or PlasmaOrdered By: Vlad Gallagher on 01-17-2024 Phosphate [Mass/Vol] 2.6 mg/dL Normal 2.5-4.5 [facility] [place] Comment on above: Performed By: #### T SH3, ESR, CRP, CBC, CMP, PTH, MG, PHOS #### [place] [address] [place] #### ESTUARDO #### [facility] , Platelet mean volume [Entiti c volume] in Blood by Automated countOrdered By: Vlad Gallagher on 01-17-2024 Platelet mean volume (Bld) [Entitic vol] 10.2 fL Normal 6.3-10.7 [facility] Comment on above: Performed By: #### T SH3, ESR, CRP, CBC, CMP, PTH, MG, PHOS #### [place] [address] [place] #### ESTUARDO #### [facility] , Platelets [#/volume] in Bloo d by Automated countOrdered By: Vlad Gallagher on 01-17-2024 Platelets (Bld) [#/Vol] 238 10*3/uL Normal 150-450 [facility] Comment on above: Performed By: #### T SH3, ESR, CRP, CBC, CMP, PTH, MG, PHOS #### [place] [address] [place] #### ESTUARDO #### [facility] , Potassium [Moles/volume] in Serum or PlasmaOrdered By: Vlad Gallagher on 01-17-2024 Potassium [Moles/Vol] 4.2 mmol/L Normal 3.5-5.1 [facility] Comment on above: Performed By: #### T SH3, ESR, CRP, CBC, CMP, PTH, MG, PHOS #### [place] [address] [place] #### ESTUARDO #### [facility] , Protein [Mass/volume] in Ser um or PlasmaOrdered By: Vlad Gallagher on 01-17-2024 Protein [Mass/Vol] 7.3 g/dL Normal 6.4-8.9 [facility] Comment on above: Performed By: #### T SH3, ESR, CRP, CBC, CMP, PTH, MG, PHOS #### [address] #### ESTUARDO #### [facility] , Serum globulin measurement b y calculation (mass/volume)Ordered By: Vlad Gallagher on 01-17-2024 Globulin (S) [Mass/Vol] 3.0 g/dL Normal [facility] Comment on above: Performed By: #### T SH3, ESR, CRP, CBC, CMP, PTH, MG, PHOS #### [address] #### ESTUARDO #### [facility] , Serum nuclear antibody titer Ordered By: Vlad Gallagher on 01-17-2024 Nuclear Ab (S) [Titer] Positive . [facility] Comment on above: Negative <1:80 Borde rline 1:80 Positive >1:80 Serum or plasma albumin/glob ulin mass ratioOrdered By: Vlad Gallagher on 01-17-2024 Albumin/Globulin [Mass ratio] 1.4 {ratio} [facility] Comment on above: Performed By: #### T SH3, ESR, CRP, CBC, CMP, PTH, MG, PHOS #### [place] [address] [place] #### ESTUARDO #### [facility] , Serum or plasma anion gap de terminationOrdered By: Vlad Gallagher on 01-17-2024 Anion gap [Moles/Vol] 8.2 mmol/L Normal 6.0-15.0 [facility] Comment on above: Performed By: #### T SH3, ESR, CRP, CBC, CMP, PTH, MG, PHOS #### [place] [address] [place] #### ESTUARDO #### [facility] , Serum speckled pattern antin uclear antibody (ESTUARDO) titerOrdered By: Vlad Gallagher on 01-17-2024 Speckled nuclear Ab pattern (S) [Titer] 1:160 . [facility] Comment on above: ICAP nomenclature: A C-2,4,5,29 Sodium [Moles/volume] in Ser um or PlasmaOrdered By: Vlad Gallagher on 01-17-2024 Sodium [Moles/Vol] 137 mmol/L Normal 136-145 [facility] Comment on above: Performed By: #### T SH3, ESR, CRP, CBC, CMP, PTH, MG, PHOS #### [facility] [address] [place] [address] #### ESTUARDO #### [facility] , Thyrotropin [Units/volume] i n Serum or PlasmaOrdered By: Vlad Gallagher on 01-17-2024 TSH Qn 3.40 m[IU]/L Normal 0.45-5.33 [facility] Comment on above: Result Comment: PERF ORMED BY: [place] [address] PATHOLOGIST ELECTRIC METER REPAIRER HELPER TIFFANIE PICKARD M.D. Performed By: #### T SH3, ESR, CRP, CBC, CMP, PTH, MG, PHOS #### [facility] [address] [place] [address] #### ESTUARDO #### [facility] , Urea nitrogen [Mass/volume] in Serum or PlasmaOrdered By: Vlad Gallagher on 01-17-2024 Urea nitrogen [Mass/Vol] 24 mg/dL Normal 7-25 [facility] Comment on above: Performed By: #### T SH3, ESR, CRP, CBC, CMP, PTH, MG, PHOS #### [facility] [address] [place] [address] [place] #### ESTUARDO #### [facility] , CNOVon 10-29-2023 CNOV Office Visit (LOORRM ) JOSELITO CARVER ([id number]) 1960 F Date Time Provider Department 10/29/23 [...] 13:50/mile pace. Pain started at about the [place] point and increased until I was finished. [...] has a race coming up soon in [facility] where she will be power walking a [...] KNEE GENERAL 4V AP BOTH/PA BOTH/LAT/MERC LEFT [[id number]] Order #: [id number] FUTURE Prescriptions as of 10/29/2023 - meloxicam (MOBIC) 15 mg tablet (more content not included)... Normal [facility] XR KNEE 4V AP/PA BOTH+LAT/ME R LTon [...] of both knees, LEFT greater than RIGHT. Radio Maintainer: MARKEL Transcribe Date/Time: Oct 29 2023 12:25P Dictated by : DARLENE SPRINGER MD This examination was interpreted and the report reviewed and electronically signed by: DARLENE SPRINGER MD on Oct 29 2023 12:27PM EST [id number] N Normal [facility] XR Knee - left 4 Viewson IMPRESSION: 1. Degenerative arthrosis of both knees, LEFT greater than RIGHT. Radio Maintainer: MARKEL Transcribe Date/Time: Oct 29 2023 12:25P [...] the RIGHT. DIVISION OF RADIOLOGY Provider, Fely Mccoy [facility] - 10/29/2023 * [...] of both knees, LEFT greater than RIGHT. Radio Maintainer: PSCB Transcribe Date/Time: Oct 29 2023 12:25P Dictated by : DARLENE SPRINGER MD This examination was interpreted and the report reviewed and electronically signed by: DARLENE SPRINGER MD on Oct 29 2023 12:27PM [facility] Radiology Study observation (narrative) [place] [facility] XR Knee - left 4 ViewsOrdere d By: [facility] Provider on 10-29-2023 [facility] PTH INTACTon 12-03-2022 PTH, Intact 25 pg/mL Normal 15-65 [facility] Comment on above: Performed By: #### P THINT #### [facility] [address] [address] [address] Noris Duenas MAGNESIUMon 12-02-2022 Magnesium [Mass/Vol] 2.0 mg/dL Normal 1.8-2.4 [facility] Comment on above: Performed By: #### P HOS, MG, BMP ####[facility] [address] [address]Dr. Noris Duenas PHOSPHORUSon 12-02-2022 Phosphate [Mass/Vol] 3.5 mg/dL Normal 2.6-4.7 [facility] Comment on above: Performed By: #### P HOS, MG, BMP ####[facility] [address] [address]Dr. Noris Duenas PROF CHEM 8 (BAS METB)on Anion gap [Moles/Vol] 12.0 mmol/L Normal [facility] Comment on above: Performed By: #### P HOS, MG, BMP #### [facility] [address] [place] [address] Dr. Noris Duenas Calcium [Mass/Vol] 9.4 mg/dL Normal 8.5-10.1 [facility] Comment on above: Performed By: #### P HOS, MG, BMP #### [facility] [address] [place] [address] Dr. Noris Duenas Chloride [Moles/Vol] 103 mmol/L Normal 98-107 [facility] Comment on above: Performed By: #### P HOS, MG, BMP #### [facility] [address] [place] [address] Dr. Noris Duenas CO2 [Moles/Vol] 29.0 mmol/L Normal 21.0-32.0 [place] Comment on above: Performed By: #### P HOS, MG, BMP #### [facility] [address] [place] [address] Dr. Noris Duenas Creatinine [Mass/Vol] 0.70 mg/dL Normal 0.55-1.02 [facility] Comment on above: Performed By: #### P HOS, MG, BMP #### [facility] [address] [place] [address] Dr. Noris Duenas EGFR-AF ESTONIAN >60 Normal >=60 [place] Comment on above: Performed By: #### P HOS, MG, BMP #### [facility] [address] [address] [address] Noris Duenas EGFR-NON AF ESTONIAN >60 Normal >=60 [facility] Comment on above: Performed By: #### P HOS, MG, BMP #### [facility] [address] [place] [address] Dr. Noris Duenas Glucose [Mass/Vol] 95 mg/dL Normal 74-106 [facility] Comment on above: Performed By: #### P HOS, MG, BMP #### [facility] [address] [place] [address] Dr. Noris Duenas Potassium [Moles/Vol] 4.0 mmol/L Normal 3.5-5.1 [facility] Comment on above: Performed By: #### P HOS, MG, BMP #### [facility] [address] [place] [address] Dr. Noris Duenas Sodium [Moles/Vol] 140 mmol/L Normal 136-145 [facility] Comment on above: Performed By: #### P HOS, MG, BMP #### [facility] [address] [place] [address] Dr. Noris Duenas Urea nitrogen [Mass/Vol] 17.0 mg/dL Normal 7.0-18.0 [facility] Comment on above: Performed By: #### P HOS, MG, BMP #### [facility] [address] [place] [address] Dr. Noris Duenas Urea nitrogen/Creatinine [Mass ratio] 24.3 mg/mg Normal [facility] Comment on above: Performed By: #### P HOS, MG, BMP #### [facility] [address] [place] [address] Dr. Noris Duenas VITAMIN D 25 OHon 12-02-2022 VIT D 25-OH 76.9 ng/mL Normal [facility] Comment on above: Performed By: #### V ITAD #### [facility] [address] [address] [address] Noris Duenas VIT D RANGES SEE BELOW Normal [facility] Comment on above: Result Comment: <20 ng/mL Vit D deficient 20 - <30 ng/mL Vit D insufficient 30 - 100 ng/mL Vit D sufficient >100 ng/mL Potential Toxicity Performed By: #### V ITAD #### [facility] [address] [address] [address] Noris Duenas XR KNEE GENERAL 4V AP BOTH/P A BOTH/LAT/MERC LEFTon 06-09-2022 [facility] XR Knee - left 4 Viewson IMPRESSION: Left knee osteoarthritis as described. Radio Maintainer: MARKEL Transcribe Date/Time: Jun 09 2022 1:58P Dictated by : HEBER CAMACHO MD This examination was interpreted and the report reviewed and electronically signed by: HEBER CAMACHO MD on Jun 09 2022 1:58PM [facility] DIVISION OF RADIOLOGY * * *Final Report* [...] other significant abnormality. DIVISION OF RADIOLOGY Provider, [facility] [place]ine [place] - 06/09/2022 * * *Final Report* * [...] IMPRESSION IMPRESSION: Left knee osteoarthritis as described. Radio Maintainer: MARKEL Transcribe Date/Time: Jun 09 2022 1:58P Dictated by : HEBER CAMACHO MD This examination was interpreted and the report reviewed and electronically signed by: HEBER CAMACHO MD on Jun 09 2022 1:58PM EST [facility] Radiology [facility]narrative) [facility] Knee - left 4 ViewsOrdere d By: [facility] Provider on 06-09-2022 [facility] CBC AUTO DIFFon 05-18-2022 BASO # 0.0 103/ul Normal 0.0-0.1 [facility] Comment on above: Performed By: #### C BC #### [facility] [address] [address] [address] Noris Duenas Basophils/100 WBC (Bld) 0.8 % Normal 0.2-2.0 [facility] Comment on above: Performed By: #### C BC #### [facility] [address] [address] [address] Noris Duenas EO # 0.2 103/ul Normal 0.0-0.7 [facility] Comment on above: Performed By: #### C BC #### [facility] [address] [address] [address] Noris Duenas Eosinophils/100 WBC (Bld) 3.8 % Normal 0.9-7.0 [facility] Comment on above: Performed By: #### C BC #### [facility] [address] [place] [address] Dr. Noris Duenas Erythrocyte distribution width (RBC) [Ratio] 13.2 % Normal 11.0-15.0 [facility] Comment on above: Performed By: #### C BC #### [facility] [address] [place] [address] Dr. Noris Duenas Hematocrit (Bld) [Volume fraction] 41.2 % Normal 36.0-48.0 [facility] Comment on above: Performed By: #### C BC #### [facility] [address] [place] [address] Dr. Noris Duenas Hemoglobin (Bld) [Mass/Vol] 13.2 g/dL Normal 12.0-16.0 [facility] Comment on above: Performed By: #### C BC #### [facility] [address] [place] [address] Dr. Noris Duenas IG # 0.01 10e3/ul Normal 0.00-0.03 [facility] Comment on above: Performed By: #### C BC #### [facility] [address] [place] [address] Dr. Noris Duneas IG % 0.2 % Normal 0.0-0.5 [facility] Comment on above: Performed By: #### C BC #### [facility] [address] [place] [address] Dr. Noris Duenas LYMPH # 1.7 103/ul Normal 1.2-3.8 [facility] Comment on above: Performed By: #### C BC #### [facility] [address] [place] [address] Dr. Noris Duenas Lymphocytes/100 WBC (Bld) 35.0 % Normal 20.5-60.0 [facility] Comment on above: Performed By: #### C BC #### [facility] [address] [place] [address] Dr. Noris Duenas MANUAL DIFF REQ NO Normal [facility] Comment on above: Performed By: #### C BC #### [facility] [address] [place] [address] Dr. Noris Duenas MCH (RBC) [Entitic mass] 30.3 pg Normal 26.7-34.0 [facility] Comment on above: Performed By: #### C BC #### [facility] [address] [place] [address] Dr. Noris Duenas MCHC (RBC) [Mass/Vol] 32.0 g/dL Normal 29.9-35.2 [facility] Comment on above: Performed By: #### C BC #### [facility] [address] [place] [address] Dr. Noris Duenas MCV (RBC) [Entitic vol] 94.5 fL Normal 81.0-99.0 [facility] Comment on above: Performed By: #### C BC #### [facility] [address] [place] [address] Dr. Noris Duenas MONO # 0.6 103/ul Normal 0.3-0.8 [facility] Comment on above: Performed By: #### C BC #### [facility] [address] [place] [address] Dr. Noris Duenas Monocytes/100 WBC (Bld) 13.4 % Critically high 1.7-12. 0 [facility] Comment on above: Performed By: #### C BC #### [facility] [address] [place] [address] Dr. Noris Duenas NEUT # 2.2 103/ul Normal 1.4-6.5 [facility] Comment on above: Performed By: #### C BC #### [facility] [address] [place] [address] Dr. Noris Duenas Neutrophils/100 WBC (Bld) 46.8 % Normal 43.0-75.0 [facility] Comment on above: Performed By: #### C BC #### [facility] [address] [place] [address] Dr. Noris Duenas Platelet mean volume (Bld) [Entitic vol] 10.7 fL Normal 9.5-13.5 [facility] Comment on above: Performed By: #### C BC #### [facility] [address] [place] [address] Dr. Noris Duenas PLT 237 103/ul Normal 150-450 [facility] Comment on above: Performed By: #### C BC #### [facility] [address] [place] [address] Dr. Noris Duenas RBC 4.36 106/ul Normal 4.20-5.40 [facility] Comment on above: Performed By: #### C BC #### [facility] [address] [place] [address] Dr. Noris Duenas WBC 4.8 103/ul Normal 4.0-11.0 [facility] Comment on above: Performed By: #### C BC #### [facility] [address] [place] [address] Dr. Noris Duenas CRPon 05-18-2022 CRP [Mass/Vol] mg/L Normal <=1.0 [facility] Comment on above: Performed By: #### C MP, LIPID, CRP #### [facility] [address] [place] [address] Dr. Noris Duenas LIPID PROFILEon 05-18-2022 CHOL-HDL RATIO NORM SEE BELOW Normal [facility] Comment on above: Result Comment: 3.3 - 4.4 LOW RISK 4.4 - 7.1 AVERAGE RISK 7.1 - 11.0 MODERATE RISK >11.0 HIGH RISK Performed By: #### C MP, LIPID, CRP #### [facility] [address] [place] [address] Dr. Noris Duenas Cholesterol [Mass/Vol] 193 mg/dL Normal <=200 [facility] Comment on above: Performed By: #### C MP, LIPID, CRP #### [facility] [address] [place] [address] Dr. Noris Duenas Cholesterol in HDL [Mass/Vol] 56 mg/dL Normal 40-60 [facility] Comment on above: Performed By: #### C MP, LIPID, CRP #### [facility] [address] [place] [address] Dr. Noris Duenas Cholesterol in LDL [Mass/Vol] 105.6 mg/dL Normal [facility] Comment on above: Performed By: #### C MP, LIPID, CRP #### [facility] [address] [address] [address] Noris Duenas Cholesterol.total/Gissell sterol in HDL [Mass ratio] 3.4 {ratio} Normal [facility] Comment on above: Performed By: #### C MP, LIPID, CRP #### [facility] [address] [address] [address] Noris Duenas HDL NORMAL > or = 60 mg/dl - LO W CARDIOVASCULAR RISK <40 mg/dl - HIGH CARDIOVASCULAR RISK Normal [facility] Comment on above: Performed By: #### C MP, LIPID, CRP #### [facility] [address] [address] [address] Noris Duenas LDL CALC NORMAL SEE BELOW Normal [facility] Comment on above: Result Comment: <100 mg/dl OPTIMAL 100 - 129 mg/dl NEAR OR ABOVE OPTIMAL 130 - 159 mg/dl BORDERLINE HIGH 160 - 189 mg/dl HIGH >190 mg/dl VERY HIGH Performed By: #### C MP, LIPID, CRP #### [facility] [address] [address] [address] Noris Duenas Triglyceride [Mass/Vol] 157 mg/dL Critically high <=150 [facility] Comment on above: Performed By: #### C MP, LIPID, CRP #### [facility] [address] [address] [address] Noris Duenas VLDL CALC 31.4 mg/dL Normal [facility] Comment on above: Performed By: #### C MP, LIPID, CRP #### [facility] [address] [address] [address] Noris Duenas PROF 14(COMP METB)on 022 Albumin [Mass/Vol] 3.7 g/dL Normal 3.4-5.0 [facility] Comment on above: Performed By: #### C MP, LIPID, CRP #### [facility] [address] [address] [address] Noris Duenas Albumin/Globulin [Mass ratio] 1.0 {ratio} Normal [facility] Comment on above: Performed By: #### C MP, LIPID, CRP #### [facility] [address] [address] [address] Noris Duenas ALP [Catalytic activity/Vol] 60 U/L Normal 46-116 [facility] Comment on above: Performed By: #### C MP, LIPID, CRP #### [facility] [address] [address] [address] Noris Duenas ALT [Catalytic activity/Vol] 30 U/L Normal 14-59 [facility] Comment on above: Performed By: #### C MP, LIPID, CRP #### [facility] [address] [address] [address] Noris Duenas Anion gap [Moles/Vol] 10.4 mmol/L Normal [facility] Comment on above: Performed By: #### C MP, LIPID, CRP #### [facility] [address] [address] [address] Noris Duenas AST [Catalytic activity/Vol] 23 U/L Normal 15-37 [facility] Comment on above: Performed By: #### C MP, LIPID, CRP #### [facility] [address] [address] [address] Noris Duenas Bilirubin [Mass/Vol] 0.3 mg/dL Normal 0.2-1.0 [facility] Comment on above: Performed By: #### C MP, LIPID, CRP #### [facility] [address] [address] [address] Noris Duenas Calcium [Mass/Vol] 9.4 mg/dL Normal 8.5-10.1 [facility] Comment on above: Performed By: #### C MP, LIPID, CRP #### [facility] [address] [address] [address] Noris Duenas Chloride [Moles/Vol] 103 mmol/L Normal 98-107 [facility] Comment on above: Performed By: #### C MP, LIPID, CRP #### [facility] [address] [address] [address] Noris Duenas CO2 [Moles/Vol] 27.7 mmol/L Normal 21.0-32.0 [place] Comment on above: Performed By: #### C MP, LIPID, CRP #### [facility] [address] [address] [address] Noris Duenas Creatinine [Mass/Vol] 0.91 mg/dL Normal 0.55-1.02 [facility] Comment on above: Performed By: #### C MP, LIPID, CRP #### [facility] [address] [address] [address] Noris Duenas EGFR-AF ESTONIAN >60 Normal >=60 [place] Comment on above: Performed By: #### C MP, LIPID, CRP #### [facility] [address] [address] [address] Noris Duenas EGFR-NON AF ESTONIAN >60 Normal >=60 [facility] Comment on above: Performed By: #### C MP, LIPID, CRP #### [facility] [address] [address] [address] Noris Duenas Globulin (S) [Mass/Vol] 3.7 g/dL Normal [facility] Comment on above: Performed By: #### C MP, LIPID, CRP #### [facility] [address] [address] [address] Noris Duenas Glucose [Mass/Vol] 101 mg/dL Normal 74-106 [facility] Comment on above: Performed By: #### C MP, LIPID, CRP #### [facility] [address] [address] [address] Noris Duenas Potassium [Moles/Vol] 4.1 mmol/L Normal 3.5-5.1 [facility] Comment on above: Performed By: #### C MP, LIPID, CRP #### [facility] [address] [address] [address] Noris Duenas Protein [Mass/Vol] 7.4 g/dL Normal 6.4-8.2 [facility] Comment on above: Performed By: #### C MP, LIPID, CRP #### [facility] [address] [address] [address] Noris Duenas Sodium [Moles/Vol] 137 mmol/L Normal 136-145 [facility] Comment on above: Performed By: #### C MP, LIPID, CRP #### [facility] [address] [place], [place] [address] Dr. Noris Duenas Urea nitrogen [Mass/Vol] 19.0 mg/dL Critically high 7.0-18.0 [facility] Comment on above: Performed By: #### C MP, LIPID, CRP #### [facility] [id number] Noris Duenas Urea nitrogen/Creatinine [Mass ratio] 20.9 mg/mg Normal [facility] Comment on above: Performed By: #### C MP, LIPID, CRP #### [facility] [id number] Noris Duenas SED RATE [facility] 2021 SED RATE 32 mm/hr Critically high <=30 [facility] Comment on above: Performed By: #### S EDR ####[facility] [id number] [place], [place] [address]NgDr. Noris Duenas Covid-19 PCR (CVDTB)on 01-28 SARS-CoV-2 (COVID-19) RNA EUSEBIO+probe Ql (Unsp spec) Not detected Normal NOT DETECTED [facility] Comment on above: Result Comment: This test is not yet approved or cleared by the [place] FDA. When there are no FDA-approved or cleared tests available, and other criteria are met, FDA can make tests available under an emergency access mechanism called an Emergency Use Authorization (EUA). The EUA for this test is supported by the [place] of Health and Human Service's (HHS's) declaration [...] SARS-CoV-2. Performed By: #### C VDTBH #### [facility] [address] [address] [address] Noris Duenas XR Knee - left 4 Viewson IMPRESSION: Moderate osteoarthritis left knee similar to 2019. Radio Maintainer: MARKEL Transcribe Date/Time: Jan 21 2021 1:23P Dictated by : SILVIO JAMES DO This examination was interpreted and the report reviewed and electronically signed by: ALEX ZAMUDIO MD on Jan 21 2021 2:17PM [facility] DIVISION OF RADIOLOGY * * *Final Report* [...] mild-moderate degenerative changes. DIVISION OF RADIOLOGY Provider, [facility] - 01/21/2021 * * *Final Report* [...] Moderate osteoarthritis left knee similar to 2019. Radio Maintainer: PSCB Transcribe Date/Time: Jan 21 2021 1:23P Dictated by : SILVIO JAMES DO This examination was interpreted and the report reviewed and electronically signed by: ALEX ZAMUDIO MD on Jan 21 2021 2:17PM EST [facility] Radiology Study observation (narrative) [facility] XR Knee - left 4 ViewsOrdere d By: [facility] Provider on 01-21-2021 [facility] No Panel Information [facility] Vital Signs Date Time Vital Sign Value Performing Clinician Facility 05-15-2024 13:39-0400 Body height 160.02 cm MD Tiffanie Johnson Work Phone: [facility] 05-15-2024 13:39-0400 Body mass index (BMI) [Ratio] 24.4 kg/m2 MD Tiffanie Johnson Work Phone: [facility] 05-15-2024 13:39-0400 Body weight 62.59 kg MD Tiffanie Johnson Work Phone: [facility] 05-15-2024 13:39-0400 Diastolic blood pressure 76 mm[Hg] MD Tiffanie Johnson Work Phone: [facility] 05-15-2024 13:39-0400 Heart rate 61 /min MD Tiffanie Johnson Work Phone: [facility] 05-15-2024 13:39-0400 Respiratory rate 12 /min MD Tiffanie Johnson Work Phone: [facility] 05-15-2024 13:39-0400 Systolic blood pressure 111 mm[Hg] MD Tiffanie Johnson Work Phone: [facility] 07-27-2023 09:30-0500 Body height 160.02 cm Tiffanie Johnson Other [facility] Other 07-27-2023 09:30-0500 Body mass index (BMI) [Ratio] 23.95 kg/m2 Tiffanie Johnson Other [facility] Other 07-27-2023 09:30-0500 Body weight 61.33 kg Tiffanie Johnson Other [facility] Other 07-27-2023 09:30-0500 Diastolic blood pressure 77 mm[Hg] Tiffanie Johnson Other [facility] Other 07-27-2023 09:30-0500 Systolic blood pressure 130 mm[Hg] Tiffanie Johnson Other [facility] Other Encounters Encounter Date Encounter Type Care Provider Facility Start: 07-25-2024 End: 07-25-2024 ambulatory GARRISON LEE Facility:[facility] Start: 07-25-2024 End: 07-25-2024 Patient encounter procedure Garrison Lee PA-C Work Phone: Orthopaedics Comment on above: Primary osteoarthrit is of left knee (Primary Dx); Primary osteoarthritis of right knee Start: 05-15-2024 End: 05-15-2024 ambulatory MD Tiffanie Johnson Work Phone: [facility] Work Phone: Start: 05-15-2024 End: 05-15-2024 Encounter for general adult medical examination without abnormal findings MD Tiffanie Johnson Work Phone: [facility] Start: 05-15-2024 End: 05-15-2024 Patient encounter procedure MD Tiffanie Johnson Work Phone: [facility] Work Phone: Start: 05-12-2024 Patient encounter status MD Sravanthi Johnson Work Phone: [facility] Start: 02-15-2024 End: 02-15-2024 Patient encounter procedure MD Tiffanie Johnson Work Phone: [facility] [address] Work Phone: Start: 02-15-2024 End: 02-15-2024 ambulatory MD Tiffanie Johnson Work Phone: [facility] Work Phone: Start: 01-17-2024 Non-patient / Non-visit MD Tonya Johnson Work Phone: [facility] Work Phone: Start: 01-17-2024 End: 01-17-2024 Patient encounter procedure MD Tiffanie Johnson Work Phone: [facility] [address] Work Phone: Start: 01-17-2024 End: 01-17-2024 ambulatory MD Tiffanie Johnson Work Phone: [facility] Work Phone: Start: 10-29-2023 End: 10-29-2023 ambulatory Carmelmary Ford RT(R) Radiology Comment on above: Radiology [...] 08-04-2023 End: 08-04-2023 ambulatory Tiffanie Johnson Other [facility] Other Start: 08-04-2023 Telephone encounter Tiffanie Johnson [facility] Start: 07-27-2023 End: 07-27-2023 ambulatory Tiffanie Johnson Other [facility] Other Start: 07-27-2023 Encounter for genera l adult medical examination without abnormal findings Tiffanie Johnson [facility] Start: 07-27-2023 Periodic preventive med est patient 40-64yrs Tiffanie Johnson [facility] Start: 03-03-2023 End: 03-03-2023 Patient encounter procedure Garrisonanders Lee PA-C Work Phone: Orthopaedics Comment on [...] examination without abnormal findings DR TIFFANIE JOHNSON [facility] Start: 05-18-2022 End: 05-19-[address] [...] Date Procedure Procedure Detail Performing Clinician Start: 07-25-2024 Arthrocentesis aspir &/inj major jt/bursa w/o us Garrison Mychal PA-C Work Phone: Start: 02-15-2024 Plain X-ray of alondra salazarnancy Johnson Work Phone: Start: 10-29-2023 Radiologic exam knee complete 4/more views Garrison Mychal PA-C Work Phone: Start: 03-03-2023 Arthrocentesis aspir &/inj major jt/bursa w/o us Garrison Mychal PA-C Work Phone: Start: 06-09-2022 Radiologic exam knee complete 4/more views Garrison Mychal PA-C Work Phone: Start: 06-09-2022 Arthrocentesis aspir &/inj major jt/bursa w/o us Garrison Mychal PA-C Work Phone: Start: 12-01-2021 Arthrocentesis aspir &/inj major jt/bursa w/o us Garrison Mychal PA-C Work Phone: Start: 01-21-2021 Radiologic exam knee complete 4/more views Garrison Mychal PA-C Work Phone: Plan of Treatment Date Care Activity Detail Author Start: 2035 RSV Vaccine (1 - 1-dose 75+ series) RSV Vaccine (1 - 1-dose 75+ series) [facility] Start: 04-30-2024 Covid-19 Vaccine ( season) Covid-19 Vaccine ( season) [facility] Start: 04-30-2024 Covid-19 Vaccine ( season) Covid-19 Vaccine ( season) [facility] Start: 04-30-2024 Influenza vaccination Influenza Vaccine (#1) [facility] Start: 01-17-2024 [facility] Start: 08-30-2023 Depression Assessment Depression Assessment [facility] Start: 04-30-2023 Influenza vaccination [facility] Start: 08-30-2022 DEPRESSION ASSESSMENT DEPRESSION ASSESSMENT [facility] Start: 04-30-2022 Influenza vaccination [facility] Start: 08-30-2021 DEPRESSION ASSESSMENT DEPRESSION ASSESSMENT [facility] Start: 2020 RSV Vaccine (1 - 1-dose 60+ series) RSV Vaccine (1 - 1-dose 60+ series) [facility] Start: 2010 SHINGRIX VACCINE (1 of 2) SHINGRIX VACCINE (1 of 2) [facility] Start: 2005 COLOGUARD (FIT-DNA) COLOGUARD (FIT-DNA) [facility] Start: 2005 Colonoscopy COLONOSCOPY [facility] Start: 2005 COLORECTAL CANCER SCREENING COLORECTAL CANCER SCREENING [facility] Start: [address] COLONOGRAPHY [facility] Start: 2005 DIABETES SCREEN DIABETES SCREEN [facility] Start: 2005 Diabetes Screening Diabetes Screening [facility] Start: 2005 FECAL OCCULT BLOOD FECAL OCCULT BLOOD [facility] Start: 2005 Lipid panel Lipid Screening [facility] Start: 2005 LIPID SCREEN LIPID SCREEN [facility] Start: 2005 Screening for malignant neoplasm of colon [facility] Start: 2005 SIGMOIDOSCOPY SIGMOIDOSCOPY [facility] Start: 2000 Mammography MAMMOGRAM [facility] Start: 2000 Screening for malignant neoplasm of breast Mammogram Screening [facility] Start: 1990 HPV TESTING HPV TESTING [facility] Start: 1990 Screening for malignant neoplasm of cervix HPV Testing [facility] Start: 1981 PAP TESTING PAP TESTING [facility] Start: 1981 Screening for malignant neoplasm of cervix [facility] Start: 1979 Urine microalbumin profile [facility] Start: 1978 Anxiety Screening Anxiety Screening [facility] Start: 1978 Depression Screening Depression Screening [facility] Start: 1978 HEPATITIS C SCREENING HEPATITIS C SCREENING [facility] Start: 1978 Hepatitis C screening Hepatitis C Screening [facility] Start: 1978 HIV SCREENING HIV SCREENING [facility] Start: 1978 HIV screening HIV Screening [facility] Start: 1972 Adult depression screening assessment DEPRESSION SCREENING [facility] Start: 1965 COVID-19 VACCINE (1) COVID-19 VACCINE (1) [facility] Start: 01-10-1961 COVID-19 VACCINE (#1) COVID-19 VACCINE (#1) [facility] Comprehensive metabo lic 2000 panel - Serum or Plasma [facility] MG Breast - bilatera l Screening [facility] Immunizations Immunization Date Immunization Notes Care Provider Fa heather 10-10-2020 zoster vaccine, live Tiffanie Johnson Other [facility] 07-08-2020 influenza virus vaccine, split virus (incl. purified surface antigen) Tiffanie Johnson Other [facility] Other 07-08-2020 zoster vaccine, live Tiffanie Johnson Other [facility] 07-08-2020 influenza virus vaccine, unspecified formulation Carmel Ford RT(R) [facility] Payers Date Payer Category Payer Self-pay [id number] 2015 Private Health Insurance [employer] PPO [id number] 2015-Present [phone] [address] [place] [address] PPO [id number] 2015 Private Health Insurance [id number] 1960 Unknown [id number] 1960 Unknown [id number] 1960 Unknown [id number] 1960 Unknown [id number] 1960 Unknown [id number] 1959 Private Health Insurance [id number] 1959 Private Health Insurance [id number] Unknown [id number] Unknown [id number] Social History Date Type Detail [facility] Start: 1960 Sex Assigned At Not on file C [facility] Start: 12-22-2020 End: 06-09-2022 Exposure to SARS-CoV-2 (event) Not sure [facility] Start: 03-03-2023 End: 10-26-2023 Sex Assigned At [facility] Start: 03-03-2023 End: 10-26-2023 History of Social function [facility] Adult Depression Screening Assessment 3 [facility] Start: 1960 Sex Assigned At Female F [facility] Start: 05-15-2024 Tobacco smoking stat [facility] Never smoked tobacco (finding) [facility] Clinical Notes 12-01-2021 to 07-25-2024 Garrison Lee PA-C - 07/25/2024 2:17 PM Garrison Calix PA-C - 10/29/2023 11:55 AM Carmel Melara RT(R) - 10/29/2023 11:34 AM EST Note Date & Type Note Facility 07-25-2024 Note HNO ID: [id number] Author: GARRISON LEE PA-C Service: ? Author Type: Physician Court Recording Monitor Type: Progress Notes Filed: 07/25/2024 14:21 Note Text: This document has been created with the use of voice recognition technology. It may contain inaccuracies: misspellings, inaccurate syntax or word sense that escaped review. CHIEF COMPLAINT: Joselito Carver is a 64 year old female who presents today for follow up of left knee pain and new evaluation of right knee pain HISTORY OF PRESENT ILLNESS: PAIN EVALUATION 07/23/20242047 Pain Level: 6 Pain Location: -- bilateral knee Description: Aching;Sharp Duration Units: Years Frequency: Intermittent Intervention/Comfort measure: Medication;Cold;Distractions Comments: She is here for bilateral knee pain. Left is worse than the right. No new or recent injury. Pain increases with stairs. HISTORY: Joselito Carver is here for follow up of complaints of recurrent left knee pain she got a few months of relief from the steroid injection. She states she has some pain in the posterior knee and feels some fullness. She has severe medial compartment arthritis in this knee. The right knee she says started hurting her more recently and has become more significant. Pain is mostly at the medial aspect of this knee. No specific injuries that have occurred and no previous injections or surgeries on this right knee. She did have her left knee scoped many years ago. No other musculoskeletal complaints ROS: REVIEW OF SYMPTOMS: Constitutional: patient denies any recent fever or significant change in weight Gastrointestinal: patient denies any current abdominal discomfort Musculoskeletal: as noted in the HPI Neurologic: as noted in the HPI SOCIAL HISTORY: Tobacco Use: Not on file [...] have trouble getting onto the exam table. bilateral knee exam no effusion, palpable bakers cyst left knee varus Alignment Flexion contracture left knee of about 5 degrees Right knee active 0 extension, flexion 120. central patellar tracking/ no patellofemoral crepitation No Pain with patellar compression, positive pain with palpating medial compartment, no Pain with palpating lateral compartment. stable to varus and valgus stresses. Carline is negative stable Anterior/posterior drawer. negative McMurrays No pain with palpation of pes anserine bursa Calf soft and nontender. Hip exam-status post right total hip replacement negative log roll, reduced ER/IR, no pain with axial loading NV intact L3-S1 with 2+ DP pulse. RADIOGRAPHS: None today IMPRESSION: Encounter Diagnosis ICD-10-CM 1. Primary osteoarthritis of left knee M17.12 2. Primary osteoarthritis of right knee M17.11 Large Joint Arthro/Inj: bilateral knee joints Informed Consent Consent Obtained: Written [place] Protocol A moment to CARE was completed. [...] assessment and interventions applicable. No implant(s) inserted. 07/25/2024 2:19 PM The procedure site was prepped in the usual sterile fashion. Site: bilateral knee joints Medications (Right): 40 mg triamcinolone acetonide 40 mg/mL Medications (Left): 40 mg triamcinolone acetonide 40 mg/mL Anesthetics (Right): 4 mL lidocaine (PF) 10 mg/mL (1 %) Anesthetics (Left): 4 mL lidocaine (PF) 10 mg/mL (1 %) Outcome: Tolerated well, no immediate complications Post-injection instructions were reviewed with the patient and the patient voiced understanding of these instructions. SIGN OUT No specimen collected. All instruments, equipment, possible retained foreign bodies accounted for. Post-procedure follow-up management communicated and Plan of Care Visit completed when applicable Plan: Patient with recurrent symptoms in the left knee and more severe symptoms in the right knee. CSI to both knees today Discussed formula x-rays which included the right knee Discussed treatment for Wong's cyst Briefly discussed total knee replacement for the left knee. She did not feel she is ready to s (more content not included)... [facility] 07-25-2024 History of Present illness Narrative Associated Order(s): Large Joint Arthro/Inj: bilateral knee joints Post-Procedure Diagnose(s): Primary osteoarthritis of right knee; Primary osteoarthritis of left knee Images from the original note were not included. This document has been created with the use of voice recognition technology. It may contain inaccuracies: misspellings, inaccurate syntax or word sense that escaped review. CHIEF COMPLAINT: Joselito Carver is a 64 year old female who presents today for follow up of left knee pain and new evaluation of right knee pain HISTORY OF PRESENT ILLNESS: PAIN EVALUATION 07/23/20242047 Pain Level: 6 Pain Location: -- bilateral knee Description: Aching;Sharp Duration Units: Years Frequency: Intermittent Intervention/Comfort measure: Medication;Cold;Distractions Comments: She is here for bilateral knee pain. Left is worse than the right. No new or recent injury. Pain increases with stairs. HISTORY: Joselito Carver is here for follow up of complaints of recurrent left knee pain she got a few months of relief from the steroid injection. She states she has some pain in the posterior knee and feels some fullness. She has severe medial compartment arthritis in this knee. The right knee she says started hurting her more recently and has become more significant. Pain is mostly at the medial aspect of this knee. No specific injuries that have occurred and no previous injections or surgeries on this right knee. She did have her left knee scoped many years ago. No other musculoskeletal complaints ROS: REVIEW OF SYMPTOMS: Constitutional: patient denies any recent fever or significant change in weight Gastrointestinal: patient denies any current abdominal discomfort Musculoskeletal: as noted in the HPI Neurologic: as noted in the HPI SOCIAL HISTORY: Tobacco Use: Not on file [...] have trouble getting onto the exam table. bilateral knee exam no effusion, palpable bakers cyst left knee varus Alignment Flexion contracture left knee of about 5 degrees Right knee active 0 extension, flexion 120. central patellar tracking/ no patellofemoral crepitation No Pain with patellar compression, positive pain with palpating medial compartment, no Pain with palpating lateral compartment. stable to varus and valgus stresses. Carline is negative stable Anterior/posterior drawer. negative McMurrays No pain with palpation of pes anserine bursa Calf soft and nontender. Hip exam-status post right total hip replacement negative log roll, reduced ER/IR, no pain with axial loading NV intact L3-S1 with 2+ DP pulse. RADIOGRAPHS: None today IMPRESSION: Encounter Diagnosis ICD-10-CM 1. Primary osteoarthritis of left knee M17.12 2. Primary osteoarthritis of right knee M17.11 Large Joint Arthro/Inj: bilateral knee joints Informed Consent Consent Obtained: Written [place] Protocol A moment to CARE was completed. [...] assessment and interventions applicable. No implant(s) inserted. 07/25/2024 2:19 PM The procedure site was prepped in the usual sterile fashion. Site: bilateral knee joints Medications (Right): 40 mg triamcinolone acetonide 40 mg/mL Medications (Left): 40 mg triamcinolone acetonide 40 mg/mL Anesthetics (Right): 4 mL lidocaine (PF) 10 mg/mL (1 %) Anesthetics (Left): 4 mL lidocaine (PF) 10 mg/mL (1 %) Outcome: Tolerated well, no immediate complications Post-injection instructions were reviewed with the patient and the patient voiced understanding of these instructions. SIGN OUT No specimen collected. All instruments, equipment, possible retained foreign bodies accounted for. Post-procedure follow-up management communicated and Plan of Care Visit completed when applicable Plan: Patient with recurrent symptoms in the left knee and more severe symptoms in the right knee. CSI to both knees today Discussed formula x-rays which included the right knee Discussed treatment for Wong's cyst Briefly discussed total knee replacement for the left knee. She did not feel she is ready to schedule this quite yet Garrison Lee PA-C documented in this encounter [facility] 10-29-2023 Note HNO ID: [id number] Author: GARRISON LEE PA-C Service: ? Author Type: Physician Court Recording Monitor Type: Progress Notes Filed: 10/29/2023 12:22 Note Text: This document has been created with the use of voice recognition technology. It may contain inaccuracies: misspellings, inaccurate syntax or word sense that escaped review. CHIEF COMPLAINT: Joselito Carevr is a 63 year old female who [...] 13:50/mile pace. Pain started at about the mcc point and increased until I was finished. [...] has a race coming up soon in [facility] where she will be power walking a [...] May follow-up as needed Garrison Lee PA-C [facility] 10-29-2023 History of Present illness Narrative Images [...] 13:50/mile pace. Pain started at about the mcc point and increased until I was finished. [...] has a race coming up soon in [facility] where she will be power walking a [...] Garrison Lee PA-C documented in this encounter [facility] 10-29-2023 Note HNO ID: [id number] Author: CARMEL FORD RT(R) Service: ? Author [...] PATIENT PRESENTS WITH AN IMPLANTABLE OR ATTACHED BIOMETRICS CONSULTANT: No RADIOLOGY DEPARTMENT: General X-ray: Exam(s) Completed: Lower Extremity X-Ray(s): Knee, AP / Lat / Tunne / Merchant Left and Wt. Bearing PERIPHERAL IV DATA: Not applicable SIGNED BY: RT Angela(R) October 29, 2023 11:34 AM [facility] 10-29-2023 History of Present illness Narrative Radiology [...] PATIENT PRESENTS WITH AN IMPLANTABLE OR ATTACHED BIOMETRICS CONSULTANT: No RADIOLOGY DEPARTMENT: General X-ray: Exam(s) Completed: Lower Extremity X-Ray(s): Knee, AP / Lat / Tunne / Merchant Left and Wt. Bearing PERIPHERAL IV DATA: Not applicable SIGNED BY: RT Angela(R) October 29, 2023 11:34 AM documented in this encounter [facility] 07-27-2023 Evaluation note Encounter Date Diagnosis Assessment [...] (ICD-10 - M54.2) Order for PT handwritten [facility] Other 07-05-2023 History of Present illness Narrative* Garrison Lee [...] remains very active and does long distance [place] races. These activities seem to flareup the [...] knee joint Informed Consent Consent Obtained: Written [place] Protocol A moment to CARE was completed. [...] dictate. Garrison Lee PA-C [facility] History of Present illness Narrative* Garrison [...] knee joint Informed Consent Consent Obtained: Written [place] Protocol A moment to CARE was completed. [...] needed Garrison Lee PA-C [facility] History of Present illness Narrative* Kriss Cornelius RT(R) - 06/09/2022 11:20 AM EDT pain [facility] NotePROCEDURE: XR ANKLE RT MIN 3 [...] Electronically authenticated by: HOMERO DONALDSON Date: 2022-06-02 12:[facility]10-04-2022 NotePROCEDURE: XR ANKLE RT [...] Electronically authenticated by: HOMERO DONALDSON Date: 2022-06-02 12[id number] History of Present illness Narrative* Garrison Lee [...] knee joint Informed Consent Consent Obtained: Written [place] Protocol A moment to CARE was completed. [...] needed. Garrison Lee PA-C [facility] Diagnosis Primary osteoarthritis of left knee- Primary Primary localized osteoarthrosis, lower leg documented in this encounter [facility] note* Diagnosis Primary osteoarthritis of left knee- Primary Primary localized osteoarthrosis, lower leg documented in this encounter [facility] note* Diagnosis Primary osteoarthritis of left knee- Primary Primary localized osteoarthrosis, lower leg documented in this encounter [facility]No [facility] Other Evaluation note* Diagnosis Primary osteoarthritis of left knee- Primary Primary localized osteoarthrosis, lower leg It band syndrome, left documented in this encounter [facility] noteNo assessment information [facility] Work Phone: Evaluation note* Diagnosis Primary osteoarthritis of left knee Primary localized osteoarthrosis, lower leg documented in this encounter [facility] note* Diagnosis Onset Date Resolution Status GERD (gastroesophageal reflux disease) acute Hypercholesterolemia acute Osteoporosis acute Screening for colon cancer a cute Screening mammogram for breast cancer acute Wellness examination acute [facility] Work Phone: Evaluation note* Diagnosis Primary osteoarthritis of left knee Primary localized osteoarthrosis, lower leg documented in this encounter [facility] note* Diagnosis Primary osteoarthritis of left knee Primary localized osteoarthrosis, lower leg documented in this encounter [facility] note* Diagnosis Primary osteoarthritis of left knee- Primary Primary localized osteoarthrosis, lower leg Primary osteoarthritis of right knee Primary localized osteoarthrosis, lower leg documented in this encounter [facility] general Narrative - Reported* Type Description Date Medical History GERD without esophagitis Medical History Onychomycosis Medical History Low back pain with radiation Medical History Muscular pain Medical History Hyperlipidemia, unspecified Medical History Osteoporosis Medical History Plantar Fasciitis Surgical History Rhinoplasty Surgical History DEXA 10/16 hip - 2.8 Surgical History Tonsillectomy Hospitalization History SEE SURGICAL HX [facility] Diagnostic Procedure Only (Routine) - Closed Specialty Diagnoses / Procedures Referred By Contac t Referred To Contact XR IMAGING Diagnoses Primary osteoarthritis of left knee Procedures XR KNEE GENERAL 4V AP BOTH/PA BOTH/LAT/MERC LEFT RADIOLOGIC EXAM KNEE COMPLETE 4/MORE VIEWS Garrison Lee PA-C [address] [place] [address] Xr Imaging Referral ID Status Reason Start Date Expiration Date V isits Requested Visits Authorized [id number] Closed Auto-Generate d Referral 06/05/2022 07/05/2023 1 1 [facility] for referral (narrative)* Diagnostic Procedure Only (Routine) - Closed Specialty Diagnoses / Procedures Referred By Contac t Referred To Contact XR IMAGING Diagnoses Primary osteoarthritis of left knee Procedures XR KNEE GENERAL 4V AP BOTH/PA BOTH/LAT/MERC LEFT RADIOLOGIC EXAM KNEE COMPLETE 4/MORE VIEWS Garrison Lee PA-C [address] [place] [address] [place] [address] Referral ID Status Reason Start Date Expiration Date V isits Requested Visits Authorized [id number] Closed Auto-Generate d Referral 10/26/2023 11/24/2024 1 1 [facility]ative[facility] Diagnostic Procedure Only (Routine) - Closed Specialty Diagnoses / Procedures Referred By Contac t Referred To Contact XR IMAGING Diagnoses Primary osteoarthritis of left knee Procedures XR KNEE GENERAL 4V AP BOTH/PA BOTH/LAT/MERC LEFT RADIOLOGIC EXAM KNEE COMPLETE 4/MORE VIEWS Garrison Lee PA-C [address] [place] [address] [place] [address] Referral ID Status Reason Start Date Expiration Date V isits Requested Visits Authorized [id number] Closed Auto-Generate d Referral 10/26/2023 11/24/2024 1 1 [facility] (narrative[facility] Diagnostic Procedure Only (Routine) - Closed Specialty Diagnoses / Procedures Referred By Contac t Referred To Contact XR IMAGING Diagnoses Primary osteoarthritis of left knee Procedures XR KNEE GENERAL 4V AP BOTH/PA BOTH/LAT/MERC LEFT RADIOLOGIC EXAM KNEE COMPLETE 4/MORE VIEWS Garrison Lee PA-C [address] [place] [address] [place] [address] Referral ID Status Reason Start Date Expiration Date V isits Requested Visits Authorized [id number] Closed Auto-Generate d Referral 06/05/2022 07/05/2023 1 1 [facility] for visit Narrative* Diagnostic Procedure Only (Routine) - Closed Specialty Diagnoses / Procedures Referred By Contac t Referred To Contact XR IMAGING Diagnoses Primary osteoarthritis of left knee Procedures XR KNEE GENERAL 4V AP BOTH/PA BOTH/LAT/MERC LEFT RADIOLOGIC EXAM KNEE COMPLETE 4/MORE VIEWS Garrison Lee PA-C [address] [place] [address] [place] [address] Referral ID Status Reason Start Date Expiration Date V isits Requested Visits Authorized [id number] Closed Auto-Generate d Referral 10/26/2023 11/24/2024 1 1 [facility] Medications Administered Section Inactive Administered Medications - [...] Purpose Family History No Family History Records Found Relationship Condition Age at Onset Recorded Date/T [...] Colitis Unknown Parkinson's disease Unknown Advance Directives No Advanced Directives Records Found Advance Directive Response Recorded Date/ Time Advance [...] or prosecute any alcohol or drug abuse patient.[facility] the event this information is protected by the Federal Confidentiality of Alcohol and Drug Abuse Patient Records regulations: The Federal rules restrict any use of the information to criminally investigate or prosecute any alcohol or drug abuse patient.[facility] HospitalIn the event this information is protected by the Federal Confidentiality of Alcohol and Drug Abuse Patient Records regulations: The Federal rules restrict any use of the information to criminally investigate or prosecute any alcohol or drug abuse patient.[facility] HospitalIn the event this information is protected by the Federal Confidentiality of Alcohol and Drug Abuse Patient Records regulations: The Federal rules restrict any use of the information to criminally investigate or prosecute any alcohol or drug abuse patient.[facility] HospitalIn the event this information is protected by the Federal Confidentiality of Alcohol and Drug Abuse Patient Records regulations: The Federal rules restrict any use of the information to criminally investigate or prosecute any alcohol or drug abuse patient.[facility] HospitalIn the event this information is protected by the Federal Confidentiality of Alcohol and Drug Abuse Patient Records regulations: The Federal rules restrict any use of the information to criminally investigate or prosecute any alcohol or drug abuse patient.[facility] HospitalIn the event this information is protected by the Federal Confidentiality of Alcohol and Drug Abuse Patient Records regulations: The Federal rules restrict any use of the information to criminally investigate or prosecute any alcohol or drug abuse patient.[facility] HospitalIn the event this information is protected by the Federal Confidentiality of Alcohol and Drug Abuse Patient Records regulations: The Federal rules restrict any use of the information to criminally investigate or prosecute any alcohol or drug abuse patient.[facility] HospitalIn the event this information is protected by the Federal Confidentiality of Alcohol and Drug Abuse Patient Records regulations: The Federal rules restrict any use of the information to criminally investigate or prosecute any alcohol or drug abuse patient.[facility] Reason for Visit (unrecogniz ed section and [...] KNEE COMPLETE 4/MORE VIEWS Garrison Lee PA-C [address] [facility] [place] [address] [place] [address] Referral ID Status Reason Start Date Expiration Date V isits Requested Visits Authorized [id number] Closed Auto-Generate d Referral 06/05/2022 07/05/2023 1 1 Reason Comments Established Patient Follow Up Knee Pain INFORMATION SOURCE (unrecogn ized section and content) DATE CREATED AUTHOR 01/09/2023 [facility] DATE CREATED AUTHOR AUTHOR'S ORGANIZ ATION 02/27/2024 [facility] DATE CREATED AUTHOR AUTHOR'S ORGANIZ ATION 07/28/2024 [facility] Care Teams (unrecognized sec tion and content) [...] BE BASED ON THE PRIMARY CLINICAL RECORDS. [employer] [facility]. provides no warranty or guarantee of the accuracy or completeness of information in this document.
[2024-08-02 12:41] LABS: Anion Gap 9.1; BUN Creatinine Ratio 23.1; Carbon Dioxide 29.8 mmol/L (21.0-32.0); Chloride 105 mmol/L (98-107); Estimated GFR (African America >60 (>=60 mL/min/1.73m^2); Estimated GFR (Non-African Ame 53 (>=60 mL/min/1.73m^2); Glucose 87 mg/dL (74-106); Magnesium 2.1 mg/dL (1.8-2.4); Phosphorus 3.1 mg/dL (2.6-4.7); Potassium 3.9 mmol/L (3.5-5.1); Sodium 140 mmol/L (136-145)
[2024-08-03 15:10] LABS: Anti-dsDNA Antibodies <1 IU/mL (0-9); Antiscleroderma-70 Antibodies <0.2 AI (0.0-0.9); Sjogren's Anti-SS-A <0.2 AI (0.0-0.9); Sjogren's Anti-SS-B <0.2 AI (0.0-0.9)
== END 2024-08-02 11:32 | disposition home or self-care (01) ==
LOC: LAB 11:32
PROVIDERS: PCP Internal Medicine; Visit Provider Internal Medicine Rheumatology
DX: M81.0 Age-related osteoporosis without current pathological fracture (principal); Z79.899 Other long term (current) drug therapy; R76.0 Raised antibody titer
CPT/HCPCS: 36415; 80048; 83735; 84100; 86225; 86235

== ENCOUNTER 2025-05-12 10:27 | Outpatient (OUT) | payer OTHER, SELFPAY ==
--- OUTSIDE RECORDS SUMMARY | 2025-05-12 10:33 | XMS_ITS | CCD ---
Author Organization [facility] Care Team Providers Care Document Analyst Name Role Phone Unavailable Primary Care Provider UnavailANALISA Martinez Admitting Unavailable ANALISA FARIA Attending Unavailable JOHNSON, DR SUSSY Perez Primary Care Unavailable BIENVENIDO, ANALISA Admitting Unavailable BIENVENIDO, ANALISA Attending Unavailable JOHNSON, DR SUSSY Perez Primary Care Unavailable ZIKAISERER, DR HOMERO Denton Consulting Unavailable BIENVENIDO, ANALISA Consulting Unavailable HAKIM, DR BENNETT Admitting Unavailable HAKIM, DR BENNETT Attending Unavailable JOHNSON, DR SUSSY Perez Primary Care Unavailable MIKA, DR CUNNINGHAM Consulting Unavailable JOHNSON, DR SUSSY Perez Admitting Unavailable JOHNSON, DR SUSSY Perez Attending Unavailable JOHNSON, DR SUSSY Perez Primary Care Unavailable JOHNSON, DR SUSSY Perez Consulting Unavailable JOHNSON, DR SUSSY Perez Admitting Unavailable JOHNSON, DR SUSSY Perez Attending Unavailable JOHNSON, DR SUSSY Perez Primary Care Unavailable JOHNSON, DR SUSSY Perez Consulting Unavailable Unavailable Primary Care Provider UnavailSussy Silverio Unavailable MD Sussy Johnson Primary Care Provider [phone] MD Vlad Gallagher Attending Provider Unavailable Primary Care Provider UnavailMD Sussy Silverio Primary Care Provider MD Vlad Gallagher Attending Provider ROSA GARRISON Referring Unavailable GARRISON LEE Attending Unavailable ROSA GARRISON Referring Unavailable ROSAGARRISON Attending Unavailable GARRISON LEE Attending Unavailable ROSA, GARRISON Referring Unavailable ROSA, GARRISON Referring Unavailable Johnson Sussy DUBOIS Primary Care Provider [phone] Martine Sotomayor Attending Provider Martine Cade Admitting Unavailable Martine Cade Attending Unavailable Sussy Johnson Primary Care Unavailable Piyush Bui DO Primary Care Provider Piyush Bui DO Attending Provider Allergies Allergy Classification Reported Allergen(s) Allergy Type Date of Onset Reaction(s) Facility (9 sources) Non-steroidal anti-inflammato ry agent; Translations: [NSAIDS (NON-STEROIDAL ANTI-INFLAMMATO RY DRUG)] Drug Intolerance 09-13-19 Other: See Comments [facility] Work Phone: (8 sources) Non-steroidal anti-inflammato ry agent Drug Intolerance 09-13-19 Other: See Comments [facility] Work Phone: (2 sources) patient allergy list reviewed by nurse or physicia Propensity to adverse reactions 03-21-20 Comment:Done [employer] Other (2 sources) Allergies Reconciled Propensity to adverse reactions Unknown [employer] Other Medications Current Medications Medication Drug Class(es) Dates Sig (Normalized) Sig (Original) alendronic acid 70 mg oral tablet (16 sources) Bisphosphonate Start: 07-11-2018 take 1 tablet by mouth every week alendronate (FOSAMAX) 70 mg tablet Take 70 mg by mouth once each week. 4 07/11/2018 Active Comment on above: Take 70 mg by mouth once each week. Ascorbic Acid (16 sources) Vitamin C ascorbic acid (VITAMIN C ORAL) Take by mouth. Active ascorbic acid (V ITAMIN C ORAL) Take by mouth. 0 Active Comment on above: Take by mouth. atorvastatin 10 mg oral tablet (20 sources) HMG-CoA Reductase Inhibitor Start: take 1 tablet by mouth once daily Atorvastatin 10 mg tablet Active 0 .ROUTE .COMPLEX 90 August 08, 2024 2:15pm Take 1 tablet by mouth once daily Complies with drug therapy Start: 07-19-2018 End: 08-08-2024 take 1 tablet by mouth once daily Atorvastatin 10 mg tablet Discontinued 10 MG PO Daily May 15, 2024 12:00am August 08, 2024 2:15pm Comment on above: Take 10 mg by mouth once daily. caffeine 175 mg oral tablet (16 sources) Central Nervous System Stimulant, Methylxanthine CAFFEINE ORAL Take 175 mg by mouth. Active Comment on above: Take 175 mg by mouth . calcium citrate/vitamin D3 (CITRACAL + D ORAL) (16 sources) calcium citrate/ vitamin D3 (CITRACAL + D ORAL) Take by mouth. Active calcium citrate/ vitamin D3 (CITRACAL + D ORAL) Take by mouth. 0 Active Comment on above: Take by mouth. citalopram 40 mg oral tablet (20 sources) Serotonin Reuptake Inhibitor Start: 01-23-2025 End: 01-24-2025 take 1 tablet by mouth once daily Citalopram 40 mg tablet Active 40 MG PO Daily January 24, 2025 9:04pm Complies with drug therapy Start: 01-25-2024 End: 01-23-2025 take 1 tablet by mouth once daily Citalopram 40 mg tablet Discontinued 0 .ROUTE .COMPLEX July 25, 2024 9:40am January 23, 2025 7:14am Take 1 tablet by mouth once daily Start: 07-02-2018 End: 01-25-2024 take 1 tablet by mouth once daily Citalopram 40 mg tablet Discontinued 40 MG PO Daily January 25, 2024 12:00am January 25, 2024 2:19pm Comment on above: Take 40 mg by mouth once daily. cyanocobalamin, vitamin B-12, (VITAMIN B-12 ORAL) (16 sources) cyanocobalamin, vitamin B-12, (VITAMIN B-12 ORAL) Take by mouth. Active cyanocobalamin, vitamin B-12, (VITAMIN B-12 ORAL) Take by mouth. 0 Active Comment on above: Take by mouth. denosumab (2 sources) RANK Ligand Inhibitor Start: 07-28-2022 Prolia 60MG/ML Prolia( 60MG/ML Subcutaneous ) Active -Hx Entry Subcutaneous for 0 Dr. Gallagher *Pick strength-form from [employer] for eRX* Jun, Active flaxseed oil (OMEGA 3 ORAL) (16 sources) flaxseed oil (OM EGA 3 ORAL) Take by mouth. Active flaxseed oil (OM EGA 3 ORAL) Take by mouth. 0 Active Comment on above: Take by mouth. glucosamine/chondr spears A sod (OSTEO BI-FLEX ORAL) (16 sources) glucosamine/sandra dr spears A sod (OSTEO [...] alternative to lidocaine 2% gel...? *Reorder from [employer] for eRx and Interaction Alerts* Jun, Active Lidocaine-Hyalur Wo-[id number]-Vxgh (1 source) Start: 05-15-2024 Lidocaine-Hyalur Bf-Fepz-Zyga Active 1 APPLIC TOPICAL Twice daily May 15, 2024 12:00am Magnesium (16 sources) Magnesium 250 mg tab Take 250 mg by mouth. Active Magnesium 250 mg tab Take 250 mg by mouth. 0 Active Comment on above: Take 250 mg by mouth . meloxicam 15 mg oral tablet (13 sources) Nonsteroidal Anti-inflammatory Drug take 1 tablet by mouth once daily meloxicam (MOBIC) 15 mg tablet Take 15 mg by mouth once daily. Active Comment on above: Take 15 mg by mouth once daily. MULTIVITAMIN ORAL (16 sources) MULTIVITAMIN ORA L Take by mouth. Active MULTIVITAMIN ORA L Take by mouth. 0 Active Comment on above: Take by mouth. predniSONE 20 mg oral tablet (2 sources) Start: 05-04-2025 End: 05-04-2025 Prednisone 20 mg tablet Active 20 MG PO As Directed 10 May 04, 2025 10:07am 1 tab tid w/ food x 1 days, then bid w/ food x 2 days, then qd w/ food x 3 days Complies with drug therapy raNITIdine 150 mg oral tablet (16 sources) Histamine-2 Receptor Antagonist Start: 07-02-2018 take 1 tablet by mouth twice daily ranitidine (ZANTAC) 150 mg tablet Take 150 mg by mouth twice daily. 4 07/02/2018 Active Comment on above: Take 150 mg by mouth twice daily. Completed/Discontinued Medications Medication Drug Class(es) Dates Sig (Normalized) Sig (Original) baclofen 10 mg oral tablet (20 sources) gamma-Aminobutyri c Acid-ergic Agonist Start: 07-22-2018 End: 05-15-2024 take 1 tablet by mouth once daily Baclofen 10 mg tablet Discontinued 10 MG PO Daily May 15, 2024 12:00am May 15, 2024 2:17pm Comment on above: Take 10 mg by mouth as needed. estradiol 0.1 mg/ml vaginal cream (20 sources) Estrogen Start: 01-17-2024 End: 12-04-2024 Estradiol 0.01 % (0.1 mg/gram) cream Discontinued 0 .ROUTE .COMPLEX 43 May 23, 2024 4:05pm December 04, 2024 2:02pm INSERT 1/2 GRAM VAGINALLY TWICE WEEKLY Start: 01-17-2024 End: 01-17-2024 Estradiol 0.01 % (0.1 mg/gra m) cream Discontinued VAGINAL January 17, 2024 12:00am January 17, 2024 3:10pm _insert ONE-HALF GRAM VAGINALLY TWICE WEEKLY; 43 grams Start: 08-07-2022 Estrace 0.01% (0.1 mg/ Estrace 0.01% (0.1 mg/, (one half) Gram pv twice weekly # 43, 08/07/2022, Ref. x2. Active vaginal pv twice weekly for 0 *Pick strength-form from [employer] for eRX* Jul, Active Start: 06-09-2018 estradiol (EST RACE) 0.01 % (0.1 mg/gram) vaginal cream Use 1 g vaginally twice a week. 3 06/09/2018 Active Comment on above: Use 1 g vaginally tw ice a week. 10 ml lidocaine hydrochloride 10 mg/ml injection (16 sources) Antiarrhythmic, Amide Local Anesthetic Start: 01-05-2025 End: 01-05-2025 lidocaine (PF) 10 mg/mL (1 %) 8 mL injection (XYLOCAINE) Start: 01-05-2025 End: 01-05-2025 8 mL, Injection - FOR ORTHO USE ONLY, ONCE, 1 dose, Starting on Wed01/05/25 at 1141, Until Wed01/05/25 at 1141 Start: 12-15-2024 End: 12-15-2024 lidocaine (PF) 10 mg/mL (1 % ) 4 mL injection (XYLOCAINE) Start: 12-15-2024 End: 12-15-2024 4 mL, Injection - FOR ORTHO USE ONLY, ONCE, 1 dose, Starting on Wed12/15/24 at 1037, Until Wed12/15/24 at 1037 Start: 07-25-2024 End: 07-25-2024 lidocaine (PF) 10 mg/mL (1 % ) 4 mL injection (XYLOCAINE) Start: 07-25-2024 End: 07-25-2024 4 mL, Injection - FOR ORTHO USE ONLY, ONCE, 1 dose, Starting on Wed07/25/24 at 1419, Until Wed07/25/24 at 1419 Start: 05-15-2024 Lidocaine Hcl 2 % jelly in applicator Active 1 APPLIC TOPICAL Daily 30 May 15, 2024 12:00am Complies with drug therapy Start: 05-15-2024 End: 05-15-2024 Lidocaine-Hyalur Ac-Aloe-Col l 2 % gel Discontinued 1 APPLIC TOPICAL Twice daily as needed May 15, 2024 12:00am May 15, 2024 3:54pm Start: 03-03-2023 End: 03-03-2023 lidocaine (PF) 10 mg/mL (1 % ) 4 mL injection (XYLOCAINE) Start: 06-09-2022 End: 06-09-2022 lidocaine (PF) 20 mg/mL (2 % ) 4 mL injection (XYLOCAINE) Start: 12-01-2021 End: 12-01-2021 lidocaine (PF) 10 mg/mL (1 % ) 4 mL injection (XYLOCAINE) 1 ml triamcinolone acetonide 40 mg/ml injection (11 sources) Corticosteroid Start: 01-05-2025 End: 01-05-2025 triamcinolone acetonide 40 mg injection (KeNALog 40) Start: 01-05-2025 End: 01-05-2025 40 mg, Injection - FOR ORTHO USE ONLY, ONCE, 1 dose, Starting on Wed01/05/25 at 1141, Until Wed01/05/25 at 1141 Start: 12-15-2024 End: 12-15-2024 triamcinolone acetonide 40 m g injection (KeNALog 40) Start: 12-15-2024 End: 12-15-2024 40 mg, Injection - FOR ORTHO USE ONLY, ONCE, 1 dose, Starting on Wed12/15/24 at 1037, Until Wed12/15/24 at 1037 Start: 07-25-2024 End: 07-25-2024 triamcinolone acetonide 40 m g injection (KeNALog 40) Start: 07-25-2024 End: 07-25-2024 [...] Documented Date Episodic/Chronic Disorders of lipid metabolism (6 sources) Hyperlipidemia; Translations: [Hyperlipidemia, unspecified] 05-12-2024 Chronic Esophageal disorders (6 sources) Gastroesophageal reflux disease; Translations: [Gastro-esophageal reflux disease without esophagitis] 05-12-2024 Chronic Immunizations and screening for infectious disease (1 source) Raised antibody titer; Translations: [Raised antibody titer] Onset: 02-21-2025 Episodic Mycoses (2 sources) Onychomycosis; Translations: [Tinea unguium] Episodic Osteoarthritis (17 sources) Osteoarthritis of left knee joint; Translations: [Unilateral primary osteoarthritis, left knee] Onset: 12-15-2024 Chronic Osteoporosis (10 sources) Age-related osteoporosis without current pathological fracture; Translations: [Osteoporosis] Onset: 12-02-2022 Chronic Other aftercare (1 source) 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; Translations: [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] Onset: 12-11-2022 Episodic Other connective tissue disease (2 sources) Muscle pain; Translations: [Myalgia, unspecified site] Episodic Other connective tissue disease (1 source) 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; Translations: [Iliotibial band syndrome, left leg] 10-29-2023 Episodic Other connective tissue disease (3 sources) Disorder of rotator cuff; Translations: [Unspecified disorder of synovium and tendon, right shoulder] 01-05-2025 Episodic Other connective tissue disease (3 sources) Impingement syndrome of left shoulder region; Translations: [Impingement syndrome of left shoulder] 01-05-2025 Episodic Other connective tissue disease (1 source) Unspecified disorder of synovium and tendon, right shoulder; Translations: [Tendinopathy of right rotator cuff] Onset: 01-05-2025 Episodic Other connective tissue disease (1 source) Impingement syndrome of left shoulder; Translations: [Impingement syndrome of left shoulder] Onset: 01-05-2025 Episodic Other non-traumatic joint disorders (9 sources) Pain of right shoulder joint; Translations: [Pain in right shoulder] Onset: 01-05-2025 01-05-2025 Episodic Other non-traumatic joint disorders (5 sources) Bilateral shoulder joint pain; Translations: [Pain in right shoulder] 01-05-2025 Episodic Other non-traumatic joint disorders (2 sources) Pain in right shoulder; Translations: [Pain in joint of right shoulder] Onset: 01-05-2025 Episodic Other non-traumatic joint disorders (1 source) Pain in left shoulder; Translations: [Pain of both shoulder joints] Onset: 01-05-2025 Episodic Other screening for suspected conditions (not mental disorders or infectious disease) (8 sources) Patient encounter status; Translations: [Encounter for screening for malignant neoplasm of colon] 05-12-2024 Episodic Spondylosis; intervertebral disc disorders; other back problems (5 sources) Cervicalgia; Translations: [Neck pain] Onset: 01-05-2025 Episodic Unclassified (4 sources) Encounter for health counseling related to travel; Translations: [ENC 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 Comment on above: Performed By: #### C BC, ESR, ADDONUAPLUS, CMP, PHOS, MG #### [facility] [address] [place] [address] [place] #### FAYE, ANTIR, C3, CH50, CHROMATIN, ADNA, C4, HISAB #### [facility] , Albumin [Mass/volume] in Ser um or Plasma by Bromocresol green (BCG) dye binding methoOrdered By: Martine Cade on 02-21-2025 Albumin BCG dye [Mass/Vol] 4.6 g/dL 3.5-5.[address] [facility] Alkaline phosphatase [Enzyma tic activity/volume] in Serum or PlasmaOrdered By: Martine Cade on 02-21-2025 ALP [Catalytic activity/Vol] 59 U/L 34-[address] [facility] Comment on above: Performed By: #### C BC, ESR, ADDONUAPLUS, CMP, PHOS, MG #### [facility] [address] [place] [address] [place] #### FAYE, ANTIR, C3, CH50, CHROMATIN, ADNA, C4, HISAB #### [facility] , Anti-RNPon 02-21-2025 Anti-ALTERATIONS WORKROOM CLERK 1.0 Normal 0.0-0.9 [facility] Comment on above: Performed By: #### C BC, ESR, ADDONUAPLUS, CMP, PHOS, MG #### [facility] [address] [place] [address] [place] #### FAYE, ANTIR, C3, CH50, CHROMATIN, ADNA, C4, HISAB #### [facility] , Anti-Faye Antibodieson 01-29 Anti-Faye Antibodies 3.1 Normal 0.0-0.9 [facility] Comment on above: Performed By: #### C BC, ESR, ADDONUAPLUS, CMP, PHOS, MG #### [place] [address] [place] #### FAYE, ANTIR, C3, CH50, CHROMATIN, ADNA, C4, HISAB #### [facility] , Anti-dsDNA(DBL)Abon 02-22-20 Anti-dsDNA(DBL)Ab <1 Normal 0-9 [facility] Comment on above: Result Comment: Nega tive <5 Equivocal 5 - 9 Positive >9 Performed at: [address] [id number] Leather Staker: Haresh Obregon PhD, Phone: [phone] Performed By: #### C BC, ESR, ADDONUAPLUS, CMP, PHOS, MG #### [place] [address] [place] #### FAYE, ANTIR, C3, CH50, CHROMATIN, ADNA, C4, HISAB #### [facility] , Appearance of UrineOrdered B y: Martine Cade on 02-21-2025 Appearance (U) Clear Clear [facility] Comment on above: Order Comment: Name Collection Type:: Clean-Voided Midstream Performed By: #### C BC, ESR, ADDONUAPLUS, CMP, PHOS, MG #### [facility] [address] [place] [address] [place] #### FAYE, ANTIR, C3, CH50, CHROMATIN, ADNA, C4, HISAB #### [facility] , Aspartate aminotransferase [ Enzymatic activity/volume] in Serum or PlasmaOrdered By: Martine Cade on 02-21-2025 AST [Catalytic activity/Vol] 26 U/L 13-[address] [facility] Comment on above: Performed By: #### C BC, ESR, ADDONUAPLUS, CMP, PHOS, MG #### [facility] [address] [place] [address] [place] #### FAYE, ANTIR, C3, CH50, CHROMATIN, ADNA, C4, HISAB #### [facility] , Bacteria [Presence] in Urine by AutomatedOrdered By: Martine Cade on 02-21-2025 Bacteria Auto Ql (U) None seen [HPF] None Seen [facility] Basophils [#/volume] in Bloo d by Automated countOrdered By: Martine Cade on 02-21-2025 Basophils (Bld) [#/Vol] 0.1 10*3/uL 0.0-0.[address] [facility] Comment on above: Performed By: #### C BC, ESR, ADDONUAPLUS, CMP, PHOS, MG #### [address] #### FAYE, ANTIR, C3, CH50, CHROMATIN, ADNA, C4, HISAB #### [facility] , Basophils/100 leukocytes in Blood by Automated countOrdered By: Martine Cade on 02-21-2025 Basophils/100 WBC (Bld) 1.0 % . [facility] Comment on above: Performed By: #### C BC, ESR, ADDONUAPLUS, CMP, PHOS, MG #### [place] [address] [place] #### FAYE, ANTIR, C3, CH50, CHROMATIN, ADNA, C4, HISAB #### [facility] , Bilirubin Test strip Ql (U)O rdered By: Martine Cade on 02-21-2025 Bilirubin Ql (U) Negative Negative [facility] Bilirubin.total [Mass/volume ] in Serum or PlasmaOrdered By: Martine Cade on 02-21-2025 Bilirubin [Mass/Vol] 0.4 mg/dL 0.3-1.0 [facility] Comment on above: Performed By: #### C BC, ESR, ADDONUAPLUS, CMP, PHOS, MG #### [facility] [address] [place] [address] [place] #### FAYE, ANTIR, C3, CH50, CHROMATIN, ADNA, C4, HISAB #### [facility] , Calcium [Mass/volume] in Ser um or PlasmaOrdered By: Martine Cade on 02-21-2025 Calcium [Mass/Vol] 10.0 mg/dL 8.6-10.[address] [facility] Comment on above: Performed By: #### C BC, ESR, ADDONUAPLUS, CMP, PHOS, MG #### [place] [address] [place] #### FAYE, ANTIR, C3, CH50, CHROMATIN, ADNA, C4, HISAB #### [facility] , Carbon dioxide, total [Moles /volume] in Serum or PlasmaOrdered By: Martine Cade on 02-21-2025 CO2 [Moles/Vol] 29.4 mmol/L 21.0-31.0 [facility] Comment on above: Performed By: #### C BC, ESR, ADDONUAPLUS, CMP, PHOS, MG #### [facility] [address] [place] [address] #### FAYE, ANTIR, C3, CH50, CHROMATIN, ADNA, C4, HISAB #### [facility] , Chloride [Moles/volume] in S grayson or PlasmaOrdered By: Martine Cade on 02-21-2025 Chloride [Moles/Vol] 105 mmol/L 98-107 [facility] Comment on above: Performed By: #### C BC, ESR, ADDONUAPLUS, CMP, PHOS, MG #### [facility] [address] [place] [address] [place] #### FAYE, ANTIR, C3, CH50, CHROMATIN, ADNA, C4, HISAB #### [facility] , Chromatin Antibodyon 025 Chromatin Antibody 1.7 Normal 0.0-0.9 [facility] Comment on above: Result Comment: PERF ORMED BY: [place] [address] PATHOLOGIST COLOR FINISHER MERLINE WISE M.D. Performed By: #### C BC, ESR, ADDONUAPLUS, CMP, PHOS, MG #### [address] #### FAYE, ANTIR, C3, CH50, CHROMATIN, ADNA, C4, HISAB #### [facility] , Color of Urine by AutoOrdere d By: Martine Cade on 02-21-2025 Color (U) Yellow Yellow [facility] Comment on above: Order Comment: Name Collection Type:: Clean-Voided Midstream Performed By: #### C BC, ESR, ADDONUAPLUS, CMP, PHOS, MG #### [address] #### FAYE, ANTIR, C3, CH50, CHROMATIN, ADNA, C4, HISAB #### [facility] , Complement C3on 02-21-2025 Complement C3 164 mg/dL Normal 82-167 [facility] Comment on above: Result Comment: Perf ormed at: - [facility] [address] [id number] Leather Staker: Haresh Obregon PhD, Phone: [phone] Performed By: #### C BC, ESR, ADDONUAPLUS, CMP, PHOS, MG #### [place] [address] [place] #### FAYE, ANTIR, C3, CH50, CHROMATIN, ADNA, C4, HISAB #### [facility] , Complement C4on 02-21-2025 Complement C4 30 mg/dL Normal 12-38 [facility] Comment on above: Performed By: #### C BC, ESR, ADDONUAPLUS, CMP, PHOS, MG #### [place] [address] [place] #### FAYE, ANTIR, C3, CH50, CHROMATIN, ADNA, C4, HISAB #### [facility] , Complement Total (CH50)on Complement Total (CH50) 59 Normal >41 [facility] Comment on above: Result Comment: Age Male Female 1 - 30 days Not Estab. Not [...] determine out of range values. Performed at: - [facility] [id number] Leather Staker: Haresh Obregon PhD, Phone: [phone] PERFORMED BY: [place] [address] PATHOLOGIST COLOR FINISHER MERLINE WISE M.D. Performed By: #### C BC, ESR, ADDONUAPLUS, CMP, PHOS, MG #### [place] [address] [place] #### FAYE, ANTIR, C3, CH50, CHROMATIN, ADNA, C4, HISAB #### [facility] , Complete Blood Count Auto Di ffon 02-21-2025 Mean Corpuscular HGB Conc 33.1 g/dL Normal 32.0-35.0 [facility] Comment on above: Performed By: #### C BC, ESR, ADDONUAPLUS, CMP, PHOS, MG #### [place] [address] [place] #### FAYE, ANTIR, C3, CH50, CHROMATIN, ADNA, C4, HISAB #### [facility] , NRBC% 0.0 /100{WBC} Normal 0-0.5 [facility] Comment on above: Performed By: #### C BC, ESR, ADDONUAPLUS, CMP, PHOS, MG #### [place] [address] [place] #### FAYE, ANTIR, C3, CH50, CHROMATIN, ADNA, C4, HISAB #### [facility] , White Blood Count 8.3 [CFU]/mL Normal 3.8-11.6 [facility] Comment on above: Performed By: #### C BC, ESR, ADDONUAPLUS, CMP, PHOS, MG #### [facility] [address] [place] [address] [place] #### FAYE, ANTIR, C3, CH50, CHROMATIN, ADNA, C4, HISAB #### [facility] , Comprehensive Metabolic Pane moriah 02-21-2025 Albumin [Mass/Vol] 4.6 g/dL Normal 3.5-5.7 [facility] Comment on above: Performed By: #### C BC, ESR, ADDONUAPLUS, CMP, PHOS, MG #### [place] [address] [place] #### FAYE, ANTIR, C3, CH50, CHROMATIN, ADNA, C4, HISAB #### [facility] , GFR/1.73 sq M.predicted MDRD (S/P/Bld) [Vol rate/Area] mL/min/{1.73_m2} Normal [facility] Comment on above: Performed By: #### C BC, ESR, ADDONUAPLUS, CMP, PHOS, MG #### [place] [address] [place] #### FAYE, ANTIR, C3, CH50, CHROMATIN, ADNA, C4, HISAB #### [facility] , Creatinine [Mass/volume] in Serum or PlasmaOrdered By: Martine Cade on 02-21-2025 Creatinine [Mass/Vol] 1.02 mg/dL 0.60-1.20 [facility] Comment on above: Performed By: #### C BC, ESR, ADDONUAPLUS, CMP, PHOS, MG #### [place] [address] [place] #### FAYE, ANTIR, C3, CH50, CHROMATIN, ADNA, C4, HISAB #### [facility] , DNA double strand Ab [Units/ volume] in SerumOrdered By: Martine Cade on 02-21-2025 DNA double strand Ab Qn (S) [IU]/mL 0-[address] [facility] Comment on above: Negative <5 Equivoca l 5 - 9 Positive >9Performed at: - [facility] [address] [id number] Director: Haresh Obregon PhD, Phone: [phone] Dipstick and Microscopicon 0 02-21-2025 Bacteria,Urine None Seen Normal None Seen [facility] Comment on above: Order Comment: Name Collection Type:: Clean-Voided Midstream Performed By: #### C BC, ESR, ADDONUAPLUS, CMP, PHOS, MG #### [address] #### FAYE, ANTIR, C3, CH50, CHROMATIN, ADNA, C4, HISAB #### [facility] , Bilirubin,Urine Negative Normal Negative [facility] Comment on above: Order Comment: Name Collection Type:: Clean-Voided Midstream Performed By: #### C BC, ESR, ADDONUAPLUS, CMP, PHOS, MG #### [address] #### FAYE, ANTIR, C3, CH50, CHROMATIN, ADNA, C4, HISAB #### [facility] , Glucose Ql (U) Normal Normal Normal [facility] Comment on above: Order Comment: Name Collection Type:: Clean-Voided Midstream Performed By: #### C BC, ESR, ADDONUAPLUS, CMP, PHOS, MG #### [place] [address] [place] #### FAYE, ANTIR, C3, CH50, CHROMATIN, ADNA, C4, HISAB #### [facility] , Hyaline Casts,Urine None Normal 0-8 [facility] Comment on above: Order Comment: Name Collection Type:: Clean-Voided Midstream Performed By: #### C BC, ESR, ADDONUAPLUS, CMP, PHOS, MG #### [address] #### FAYE, ANTIR, C3, CH50, CHROMATIN, ADNA, C4, HISAB #### [facility] , Mucus,Urine Rare Normal [facility] Comment on above: Order Comment: Name Collection Type:: Clean-Voided Midstream Result Comment: PERF ORMED BY: [place] [address] PATHOLOGIST COLOR FINISHER MERLINE WISE M.D. Performed By: #### C BC, ESR, ADDONUAPLUS, CMP, PHOS, MG #### [address] #### FAYE, ANTIR, C3, CH50, CHROMATIN, ADNA, C4, HISAB #### [facility] , Nitrite,Urine Negative Normal Negative [facility] Comment on above: Order Comment: Name Collection Type:: Clean-Voided Midstream Performed By: #### C BC, ESR, ADDONUAPLUS, CMP, PHOS, MG #### [address] #### FAYE, ANTIR, C3, CH50, CHROMATIN, ADNA, C4, HISAB #### [facility] , Occult Blood,Urine Negative Normal Negative [facility] Comment on above: Order Comment: Name Collection Type:: Clean-Voided Midstream Performed By: #### C BC, ESR, ADDONUAPLUS, CMP, PHOS, MG #### [address] #### FAYE, ANTIR, C3, CH50, CHROMATIN, ADNA, C4, HISAB #### [facility] , Protein,Urine Negative Normal Negative [facility] Comment on above: Order Comment: Name Collection Type:: Clean-Voided Midstream Performed By: #### C BC, ESR, ADDONUAPLUS, CMP, PHOS, MG #### [address] #### FAYE, ANTIR, C3, CH50, CHROMATIN, ADNA, C4, HISAB #### [facility] , RBC,Urine 1-2 Normal 0-4 [facility] Comment on above: Order Comment: Name Collection Type:: Clean-Voided Midstream Performed By: #### C BC, ESR, ADDONUAPLUS, CMP, PHOS, MG #### [address] #### FAYE, ANTIR, C3, CH50, CHROMATIN, ADNA, C4, HISAB #### [facility] , Specificy Wiggins,Urine 1.025 Normal 1.001-1.030 [facility] Comment on above: Order Comment: Name Collection Type:: Clean-Voided Midstream Performed By: #### C BC, ESR, ADDONUAPLUS, CMP, PHOS, MG #### [address] #### FAYE, ANTIR, C3, CH50, CHROMATIN, ADNA, C4, HISAB #### [facility] , Urobilinogen,Urine Normal Normal Normal [facility] Comment on above: Order Comment: Name Collection Type:: Clean-Voided Midstream Performed By: #### C BC, ESR, ADDONUAPLUS, CMP, PHOS, MG #### [address] #### FAYE, ANTIR, C3, CH50, CHROMATIN, ADNA, C4, HISAB #### [facility] , WBC,Urine 1-2 Normal 0-4 [facility] Comment on above: Order Comment: Name Collection Type:: Clean-Voided Midstream Performed By: #### C BC, ESR, ADDONUAPLUS, CMP, PHOS, MG #### [facility] [address] #### FAYE, ANTIR, C3, CH50, CHROMATIN, ADNA, C4, HISAB #### [facility] , Eosinophils [#/volume] in Bl ood by Automated countOrdered By: Martine Cade on 02-21-2025 Eosinophils (Bld) [#/Vol] 0.1 10*3/uL 0.0-0.[address] [facility] Comment on above: Performed By: #### C BC, ESR, ADDONUAPLUS, CMP, PHOS, MG #### [address] #### FAYE, ANTIR, C3, CH50, CHROMATIN, ADNA, C4, HISAB #### [facility] , Eosinophils/100 leukocytes i n Blood by Automated countOrdered By: Martine Cade on 02-21-2025 Eosinophils/100 WBC (Bld) 1.0 % . [facility] Comment on above: Performed By: #### C BC, ESR, ADDONUAPLUS, CMP, PHOS, MG #### [address] #### FAYE, ANTIR, C3, CH50, CHROMATIN, ADNA, C4, HISAB #### [facility] , Epithelial cells.squamous [# /area] in Urine sediment by Automated countOrdered By: Martine Cade on 02-21-2025 Epithelial cells.squamous Auto (Urine sed) [#/Area] N/A [facility] Erythrocyte Sedimentation Ra michell 02-21-2025 ESR (Bld) [Velocity] 36 mm/h High 0-29 [facility] Comment on above: Result Comment: PERF ORMED BY: [place] [address] PATHOLOGIST COLOR FINISHER MERLINE WISE M.D. Performed By: #### C BC, ESR, ADDONUAPLUS, CMP, PHOS, MG #### [place] [address] [place] #### FAYE, ANTIR, C3, CH50, CHROMATIN, ADNA, C4, HISAB #### [facility] , Erythrocyte distribution wid th [Ratio] by Automated countOrdered By: Martine Cade on 02-21-2025 Erythrocyte distribution width (RBC) [Ratio] 13.4 % 11.9-15.[address] [facility] Comment on above: Performed By: #### C BC, ESR, ADDONUAPLUS, CMP, PHOS, MG #### [address] #### FAYE, ANTIR, C3, CH50, CHROMATIN, ADNA, C4, HISAB #### [facility] , Erythrocyte sedimentation ra te by Photometric methodOrdered By: Martine Cade on 02-21-2025 ESR Photometric method (Bld) [Velocity] 36 mm/hr High 0-[address] [facility] Erythrocytes [#/area] in Uri ne sediment by Automated countOrdered By: Martine Cade on 02-21-2025 RBC Auto (Urine sed) [#/Area] 1-2 [HPF] 0-[address] [facility] Erythrocytes [#/volume] in B lood by Automated countOrdered By: Martine Cade on 02-21-2025 RBC (Bld) [#/Vol] 4.31 10*6/uL 3.60-5.00 [facility] Comment on above: Performed By: #### C BC, ESR, ADDONUAPLUS, CMP, PHOS, MG #### [place] [address] [place] #### FAYE, ANTIR, C3, CH50, CHROMATIN, ADNA, C4, HISAB #### [facility] , Glucose [Mass/volume] in Ser um or PlasmaOrdered By: Martine Cade on 02-21-2025 Glucose [Mass/Vol] 107 mg/dL High 70-[address] [facility] Comment on above: ADA recommended refe rence rangeRandom Glucose Reference Range is dependent on time and content of last meal. Glucose of more than 200 mg/dL in a nonstressed, ambulatory subject supports the diagnosis of Diabetes Mellitus. Result Comment: [facility] Glucose Reference Range is dependent on time and content of last meal. Glucose of more than 200 mg/dL in a nonstressed, ambulatory subject supports the diagnosis of Diabetes Mellitus. ADA recommended reference range Performed By: #### C BC, ESR, ADDONUAPLUS, CMP, PHOS, MG #### [place] [address] [place] #### FAYE, ANTIR, C3, CH50, CHROMATIN, ADNA, C4, HISAB #### [facility] , Glucose [Mass/volume] in Uri ne by Test stripOrdered By: Martine Cade on 02-21-2025 Glucose Test strip (U) [Mass/Vol] Normal mg/dL Normal [facility] Hematocrit [Volume Fraction] of Blood by Automated countOrdered By: Martine Cade on 02-21-2025 Hematocrit (Bld) [Volume fraction] 40.7 % 34.0-46.[address] [facility] Comment on above: Performed By: #### C BC, ESR, ADDONUAPLUS, CMP, PHOS, MG #### [place] [address] [place] #### FAYE, ANTIR, C3, CH50, CHROMATIN, ADNA, C4, HISAB #### [facility] , Hemoglobin Test strip Ql (U) Ordered By: Martine Cade on 02-21-2025 Hemoglobin Ql (U) Negative Negative [facility] Hemoglobin [Mass/volume] in BloodOrdered By: Martine Cade on 02-21-2025 Hemoglobin (Bld) [Mass/Vol] 13.5 g/dL 11.8-15.[address] [facility] Comment on above: Performed By: #### C BC, ESR, ADDONUAPLUS, CMP, PHOS, MG #### [place] [address] [place] #### FAYE, ANTIR, C3, CH50, CHROMATIN, ADNA, C4, HISAB #### [facility] , Histone Antibodieson 025 Histone Antibodies 0.8 Normal 0.0-0.9 [facility] Comment on above: Result Comment: Nega tive <1.0 Weak Positive 1.0 - 1.5 Moderate Positive 1.6 - 2.5 Strong Positive >2.5 Performed at: [facility] [id number] Leather Staker: Josephine Joseph MD, Phone: [phone] Performed By: #### C BC, ESR, ADDONUAPLUS, CMP, PHOS, MG #### [place] [address] [place] #### FAYE, ANTIR, C3, CH50, CHROMATIN, ADNA, C4, HISAB #### [facility] , Hyaline casts [#/area] in Ur ine sediment by Automated countOrdered By: Martine Cade on 02-21-2025 Hyaline casts Auto (Urine sed) [#/Area] None [LPF] 0-[address] [facility] Ketones [Presence] in Urine by Test stripOrdered By: Martine Cade on 02-21-2025 Ketones Ql (U) Negative Negative [facility] Comment on above: Order Comment: Name Collection Type:: Clean-Voided Midstream Performed By: #### C BC, ESR, ADDONUAPLUS, CMP, PHOS, MG #### [facility] [address] [place] [address] [place] #### FAYE, ANTIR, C3, CH50, CHROMATIN, ADNA, C4, HISAB #### [facility] , Leukocyte esterase [Presence ] in Urine by Test stripOrdered By: Martine Cade on 02-21-2025 Leukocyte esterase Test strip Ql (U) Negative Negative [facility] Comment on above: Order Comment: Name Collection Type:: Clean-Voided Midstream Performed By: #### C BC, ESR, ADDONUAPLUS, CMP, PHOS, MG #### [place] [address] [place] #### FAYE, ANTIR, C3, CH50, CHROMATIN, ADNA, C4, HISAB #### [facility] , Leukocytes [#/area] in Urine sediment by Automated countOrdered By: Martine Cade on 02-21-2025 WBC Auto (Urine sed) [#/Area] 1-2 [HPF] 0-[address] [facility] Leukocytes [#/volume] correc yoel for nucleated erythrocytes in Blood by Automated counOrdered By: Martine Cade on 02-21-2025 WBC corrected for nucl RBC Auto (Bld) [#/Vol] 8.3 10*3/uL 3.8-11.[address] [facility] Leukocytes [#/volume] in Blo od by Automated countOrdered By: Martine Cade on 02-21-2025 WBC (Bld) [#/Vol] 8.3 10*3/uL 3.8-11.[address] [facility] Comment on above: Performed By: #### C BC, ESR, ADDONUAPLUS, CMP, PHOS, MG #### [facility] [address] [place] [address] [place] #### FAYE, ANTIR, C3, CH50, CHROMATIN, ADNA, C4, HISAB #### [facility] , Lymphocytes [#/volume] in Bl ood by Automated countOrdered By: Martine Cade on 02-21-2025 Lymphocytes (Bld) [#/Vol] 1.9 10*3/uL 1.00-4.[address] [facility] Comment on above: Performed By: #### C BC, ESR, ADDONUAPLUS, CMP, PHOS, MG #### [facility] [address] [place] [address] [place] #### FAYE, ANTIR, C3, CH50, CHROMATIN, ADNA, C4, HISAB #### [facility] , Lymphocytes/100 leukocytes i n Blood by Automated countOrdered By: Martine Cade on 02-21-2025 Lymphocytes/100 WBC (Bld) 23.0 % . [facility] Comment on above: Performed By: #### C BC, ESR, ADDONUAPLUS, CMP, PHOS, MG #### [facility] [address] [place] [address] #### FAYE, ANTIR, C3, CH50, CHROMATIN, ADNA, C4, HISAB #### [facility] , MCH [Entitic mass] by Automa yoel countOrdered By: Martine Cade on 02-21-2025 MCH (RBC) [Entitic mass] 31.3 pg 24.7-34.[address] [facility] Comment on above: Performed By: #### C BC, ESR, ADDONUAPLUS, CMP, PHOS, MG #### [address] #### FAYE, ANTIR, C3, CH50, CHROMATIN, ADNA, C4, HISAB #### [facility] , MCHC Auto (RBC) [Mass/Vol]Or dered By: Martine Cade on 02-21-2025 MCHC (RBC) [Mass/Vol] 33.1 g/dL 32.0-35.0 [facility] MCV [Entitic volume] by Auto mated countOrdered By: Martine Cade on 02-21-2025 MCV (RBC) [Entitic vol] 94.5 fL 80-100 [facility] Comment on above: Performed By: #### C BC, ESR, ADDONUAPLUS, CMP, PHOS, MG #### [place] [address] [place] #### FAYE, ANTIR, C3, CH50, CHROMATIN, ADNA, C4, HISAB #### [facility] , Magnesium [Mass/volume] in S grayson or PlasmaOrdered By: Martine Cade on 02-21-2025 Magnesium [Mass/Vol] 2.2 mg/dL 1.9-2.7 [facility] Comment on above: Result Comment: PERF ORMED BY: [place] [address] PATHOLOGIST COLOR FINISHER MERLINE WISE M.D. Performed By: #### C BC, ESR, ADDONUAPLUS, CMP, PHOS, MG #### [address] #### FAYE, ANTIR, C3, CH50, CHROMATIN, ADNA, C4, HISAB #### [facility] , Monocytes [#/volume] in Bloo d by Automated countOrdered By: Martine Cade on 02-21-2025 Monocytes (Bld) [#/Vol] 0.6 10*3/uL 0.0-0.[address] [facility] Comment on above: Performed By: #### C BC, ESR, ADDONUAPLUS, CMP, PHOS, MG #### [address] #### FAYE, ANTIR, C3, CH50, CHROMATIN, ADNA, C4, HISAB #### [facility] , Monocytes/100 leukocytes in Blood by Automated countOrdered By: Martine Cade on 02-21-2025 Monocytes/100 WBC (Bld) 7.5 % . [facility] Comment on above: Performed By: #### C BC, ESR, ADDONUAPLUS, CMP, PHOS, MG #### [address] #### FAYE, ANTIR, C3, CH50, CHROMATIN, ADNA, C4, HISAB #### [facility] , Mucus [Presence] in Urine by AutomatedOrdered By: Martine Cade on 02-21-2025 Mucus Auto Ql (U) Rare [LPF] [facility] Neutrophils [#/volume] in Bl ood by Automated countOrdered By: Martine Cade on 02-21-2025 Neutrophils (Bld) [#/Vol] 5.6 10*3/uL 1.8-7.[address] [facility] Comment on above: Performed By: #### C BC, ESR, ADDONUAPLUS, CMP, PHOS, MG #### [facility] [address] [place] [address] [place] #### FAYE, ANTIR, C3, CH50, CHROMATIN, ADNA, C4, HISAB #### [facility] , Neutrophils/100 leukocytes i n Blood by Automated countOrdered By: Martine Cade on 02-21-2025 Neutrophils/100 WBC (Bld) 67.5 % . [facility] Comment on above: Performed By: #### C BC, ESR, ADDONUAPLUS, CMP, PHOS, MG #### [facility] [address] [place] [address] [place] #### FAYE, ANTIR, C3, CH50, CHROMATIN, ADNA, C4, HISAB #### [facility] , Nitrite Test strip Ql (U)Ord ered By: Martine Cade on 02-21-2025 Nitrite Ql (U) Negative Negative [facility] No Panel InformationOrdered By: Martine Cade on 02-21-2025 Estimated GFR (CKD-EPI) > 60.0 mL/Min [facility] Creatinine Clearance (Chem N/A [facility] Nucleated erythrocytes [Pres ence] in Blood by Automated countOrdered By: Martine Cade on 02-21-2025 Nucleated RBC Auto Ql (Bld) 0.0 /100{WBC} 0-0.[address] [facility] Phosphate [Mass/volume] in S grayson or PlasmaOrdered By: Martine Cade on 02-21-2025 Phosphate [Mass/Vol] 2.9 mg/dL 2.5-4.5 [facility] Comment on above: Performed By: #### C BC, ESR, ADDONUAPLUS, CMP, PHOS, MG #### [facility] [address] [place] [address] [place] #### FAYE, ANTIR, C3, CH50, CHROMATIN, ADNA, C4, HISAB #### [facility] , Platelet mean volume [Entiti c volume] in Blood by Automated countOrdered By: Martine Cade on 02-21-2025 Platelet mean volume (Bld) [Entitic vol] 9.9 fL 6.3-10.[address] [facility] Comment on above: Performed By: #### C BC, ESR, ADDONUAPLUS, CMP, PHOS, MG #### [facility] [address] [place] [address] #### FAYE, ANTIR, C3, CH50, CHROMATIN, ADNA, C4, HISAB #### [facility] , Platelets [#/volume] in Bloo d by Automated countOrdered By: Martine Cade on 02-21-2025 Platelets (Bld) [#/Vol] 244 10*3/uL 150-[address] [facility] Comment on above: Performed By: #### C BC, ESR, ADDONUAPLUS, CMP, PHOS, MG #### [address] #### FAYE, ANTIR, C3, CH50, CHROMATIN, ADNA, C4, HISAB #### [facility] , Potassium [Moles/volume] in Serum or PlasmaOrdered By: Martine Cade on 02-21-2025 Potassium [Moles/Vol] 4.0 mmol/L 3.5-5.1 [facility] Comment on above: Performed By: #### C BC, ESR, ADDONUAPLUS, CMP, PHOS, MG #### [facility] [address] [place] [address] [place] #### FAYE, ANTIR, C3, CH50, CHROMATIN, ADNA, C4, HISAB #### [facility] , Protein Test strip (U) [Mass /Vol]Ordered By: Martine Cade on 02-21-2025 Protein (U) [Mass/Vol] Negative Negative [facility] Protein [Mass/volume] in Ser um or PlasmaOrdered By: Martine Cade on 02-21-2025 Protein [Mass/Vol] 7.2 g/dL 6.4-8.[address] [facility] Comment on above: Performed By: #### C BC, ESR, ADDONUAPLUS, CMP, PHOS, MG #### [facility] [address] [place] [address] [place] #### FAYE, ANTIR, C3, CH50, CHROMATIN, ADNA, C4, HISAB #### [facility] , Ribonucleoprotein antibody a ssayOrdered By: Martine Cade on 02-21-2025 Ribonucleoprotein antibody assay 1.0 AI High 0.0-0.[address] [facility] Serum Faye extractable nucl ear antigen (DERIC) antibody assay (units/volume)Ordered By: Martine Cade on 02-21-2025 Faye extractable nuclear Ab Qn (S) 3.1 AI High 0.0-0.[address] [facility] Serum globulin measurement b y calculation (mass/volume)Ordered By: Martine Cade on 02-21-2025 Globulin (S) [Mass/Vol] 2.6 g/dL [facility] Comment on above: Performed By: #### C BC, ESR, ADDONUAPLUS, CMP, PHOS, MG #### [address] #### FAYE, ANTIR, C3, CH50, CHROMATIN, ADNA, C4, HISAB #### [facility] , Serum histone IgG antibody a ssay by immunoassay (units/volume)Ordered By: Martine Cade on 02-21-2025 Histone IgG IA Qn (S) 0.8 Units 0.0-0.9 [facility] Comment on above: Negative <1.0 Weak P ositive 1.0 - 1.5 Moderate Positive 1.6 - 2.5 Strong Positive >2.5Performed at: [facility] [id number] Director: Josephine Joseph MD, Phone: [phone] Serum or plasma albumin/glob ulin mass ratioOrdered By: Martine Cade on 02-21-2025 Albumin/Globulin [Mass ratio] 1.8 {ratio} [facility] Comment on above: Performed By: #### C BC, ESR, ADDONUAPLUS, CMP, PHOS, MG #### [facility] [address] [place] [address] [place] #### FAYE, ANTIR, C3, CH50, CHROMATIN, ADNA, C4, HISAB #### [facility] , Serum or plasma anion gap de terminationOrdered By: Martine Cade on 02-21-2025 Anion gap [Moles/Vol] 9.6 mmol/L 6.0-15.0 [facility] Comment on above: Performed By: #### C BC, ESR, ADDONUAPLUS, CMP, PHOS, MG #### [facility] [address] [place] [address] #### FAYE, ANTIR, C3, CH50, CHROMATIN, ADNA, C4, HISAB #### [facility] , Serum or plasma chromatin an tibody assay (units/volume)Ordered By: Martine Cade on 02-21-2025 Chromatin Ab Qn 1.7 AI High 0.0-0.[address] [facility] Serum or plasma complement C 3 measurement (mass/volume)Ordered By: Martine Cade on 02-21-2025 Complement C3 [Mass/Vol] 164 mg/dL 82-[address] [facility] Comment on above: Performed at: [place] [id number] Director: Haresh Obregon PhD, Phone: [phone] Serum or plasma complement C 4 measurement (mass/volume)Ordered By: Martine Cade on 02-21-2025 Complement C4 [Mass/Vol] 30 mg/dL 12-[address] [facility] Sodium [Moles/volume] in Ser um or PlasmaOrdered By: Martine Cade on 02-21-2025 Sodium [Moles/Vol] 140 mmol/L 136-[address] [facility] Comment on above: Performed By: #### C BC, ESR, ADDONUAPLUS, CMP, PHOS, MG #### [facility] [address] [place] [address] [place] #### FAYE, ANTIR, C3, CH50, CHROMATIN, ADNA, C4, HISAB #### [facility] , Specific gravity Test strip (U) [Rel density]Ordered By: Martine Cade on 02-21-2025 Specific gravity (U) [Rel density] 1.025 1.001-1.[address] [facility] Total hemolytic complement C H50 assayOrdered By: Martine Cade on 02-21-2025 Total hemolytic complement CH50 assay 59 U/mL >[address] [facility] Comment on above: Age Male Female 1 - 30 days Not Estab. Not Estab. 31 days - 6 months >32 >20 7 months - 17 years >39 >39 >17 years >41 >41 NOTE: The adult ( >17 years ) reference interval range is used to flag abnormals on this report. If the patient is 17 years old or younger, use the table above to determine out of range values.Performed at: [email or web address] [id number] Director: Haresh Obregon PhD, Phone: [phone] Urea nitrogen [Mass/volume] in Serum or PlasmaOrdered By: Martine Cade on 02-21-2025 Urea nitrogen [Mass/Vol] 28 mg/dL High 03-[address] [facility] Comment on above: Performed By: #### C BC, ESR, ADDONUAPLUS, CMP, PHOS, MG #### [address] #### FAYE, ANTIR, C3, CH50, CHROMATIN, ADNA, C4, HISAB #### [facility] , Urobilinogen Test strip (U) [Mass/Vol]Ordered By: Martine Cade on 02-21-2025 Urobilinogen (U) [Mass/Vol] Normal mg/dL Normal [facility] pH of Urine by Test stripOrd ered By: Martine Cade on 02-21-2025 pH (U) 5.5 [pH] 5.0-9.[address] [facility] Comment on above: Order Comment: Name Collection Type:: Clean-Voided Midstream Performed By: #### C BC, ESR, ADDONUAPLUS, CMP, PHOS, MG #### [facility] [address] #### FAYE, ANTIR, C3, CH50, CHROMATIN, ADNA, C4, HISAB #### [facility] , CNTHERAPYon 02-13-2025 CNTHERAPY OT/PT/Speech Visit (LOPTRM) SVETLANA CARVER ([id number]) 1960 F Date Time Provider Department 02/13/25 10:45 AM SELENE MCLEAN Date Time Provider Department [place] 02/13/2025 10:45 AM [id number] MCLEAN Reason for Visit: PT Discharge [752] Primary Visit Diagnosis:Pain in joint of right shoulder [M25.511] Allergies As of Date: 02/13/2025 Noted Allergy Reaction NSAIDS (NON-STEROIDAL ANTI-INFLAM* 9 14 - Other: See Comments Comments: Cannot take NSAIDS due to kidney disease Date Reviewed: 01/05/2025 Reviewed by: Keon Gonzalez, ALON - Fully Assessed Prescriptions as of 02/13/2025 [...] CAFFEINE ORAL Take 175 mg by mouth. Criminal Investigative Agent: Therapy (PT/OT/Speech/Resp) ID: [id number] 02/13/2025 11:14 AM Author: SELENE MCLEAN Signed by SELENE MCLEAN PT on 02/13/2025 at 11:14 AM Document text: Program_ID:[id number] Access Code: [email or web address] URL: [email or web address]/ Date: 02-13-2025 Prepared By: Selene Mclean Program [...] weekly - 1-2 sets - 10-15 reps ----- Normal [facility] THERAPY NTon 02-13-2025 THERAPY NT HNO ID: [id number] Author: SELENE MCLEAN PT Service: Physical Therapy Author Type: Physical Therapist Type: Therapy (PT/OT/Speech/Resp) Filed: 02/13/2025 11:14 Note Text: Program_ID:[id number] Access Code: [email or web address] URL: [email or web address] [employer]/ Date: 02-13-2025 Prepared By: Selene Mclean Program [...] weekly - 1-2 sets - 10-15 reps Normal [facility] CNTHERAPYon 01-24-2025 CNTHERAPY OT/PT/Speech Visit (LOPTRM) MEHULSVETLANA ([id number]) 1960 F Date Time Provider Department 01/24/25 4:30 PM SELENE MCLEAN Date Time Provider Department Center 01/24/2025 4:30 PM [id number] MCLEANain - Darek Reason for Visit: Physical Therapy [503] Primary Visit Diagnosis:Pain in joint of right shoulder [M25.511] Allergies As of Date: 01/24/2025 Noted Allergy Reaction NSAIDS (NON-STEROIDAL ANTI-INFLAM* 9 14 - Other: See Comments Comments: Cannot take NSAIDS due to kidney disease Date Reviewed: 01/05/2025 Reviewed by: Keon Gonzalez, ALON - Fully Assessed Prescriptions as of 01/24/2025 [...] CAFFEINE ORAL Take 175 mg by mouth. Criminal Investigative Agent: Addendum Therapy (PT/OT/Speech/Resp) ID: [id number] 01/24/2025 5:08 PM Author: SELENE MCLEAN Signed by SELENE MCLEAN PT on 01/24/2025 at 5:08 PM * * * This document replaces document [id number] * * * Document text: Program_ID:[id number] Access Code: [email or web address] URL: [email or web address] Date: 01-24-2025 Prepared By: Selene Mclean Program [...] weekly - 1-2 sets - 10-15 reps ----- Normal [facility] THERAPY NTon 01-24-2025 THERAPY NT HNO ID: [id number] Author: SELENE MCLEAN PT Service: Physical Therapy Author Type: Physical Therapist Type: Therapy (PT/OT/Speech/Resp) Filed: 01/24/2025 17:08 Note Text: Program_ID:[id number] Access Code: [email or web address] URL: [email or web address] Date: 01-24-2025 Prepared By: Selene Mclean Program [...] weekly - 1-2 sets - 10-15 reps Normal [facility] CNOVon 01-05-2025 CNOV Office Visit (LOORRM ) SVETLANA CARVER ([id number]) 1960 F Date Time Provider Department 01/05/25 11:00 AM GARRISON LEE During your visit today, we recorded the following information about you: Garrison Lee PA-C 01/05/2025 11:54 AM Signed This document has been created with the use of voice recognition technology, including AI Scribe technology. It may contain inaccuracies: misspellings, inaccurate syntax or word sense that escaped review. CHIEF COMPLAINT: Svetlana Carver is a 64 year old female who presents today for new evaluation of bilateral shoulder and neck pain. HISTORY OF PRESENT ILLNESS: PAIN EVALUATION 01/04/2025 1553 01/05/2025 1058 Pain Level: -- 5 Pain Location: Shoulder-Right Other: See Comment Bilateral Shoulders R>L Description: Aching;Dull;Spasm;Tig htness Dull;Aching Duration Amount of Time: -- 3 Duration Units: Hours Years Frequency: Intermittent Intermittent Intervention/Comfort measure: Medication;Reposition ;Relaxation;Distracti ons;Massage;Other: See comment Reposition;Relaxation ;Positioning;Medicati on;Heat Comments: Stretching Aleve, Tylenol HISTORY: Svetlana is a 64-year-old female presenting with chronic shoulder pain. Svetlana reports bilateral shoulder pain that has been gradually worsening over the past 3 years. The pain is described as intense muscle knots located primarily in the trapezius region and occasionally radiating to the neck. She has attempted to alleviate the pain with stretching and heat application without significant relief. She has not engaged in gym activities for the past month. Svetlana denies pain in the shoulder joint area [...] She recently completed a half marathon in [facility], without any issues related to her shoulder [...] these instructions. Informed Consent Consent Obtained: Written [place] Protocol A moment to CARE was completed. SIGN IN Personnel directly in (more content not included)... Normal [facility] CNTHERAPYon 01-05-2025 CNTHERAPY OT/PT/Speech Visit (LOPTRM) SVETLANA CARVER ([id number]) 1960 F Date Time Provider Department 01/05/25 12:30 PM SELENE MCLEAN LOPTRM Date Time Provider Department Center 01/05/2025 12:30 PM [id number], KRISTEN DYAN Oswald Reason for Visit: PT Eval [747] Patient Education [91] Primary Visit Diagnosis:Pain in joint of right shoulder [M25.511] Other Visit Diagnoses:Primary osteoarthritis of right shoulder [M19.011] Tendinopathy of right rotator cuff [M67.911] Cervicalgia [M54.2] Impingement syndrome of left shoulder [M75.42] Allergies As of Date: 01/05/2025 Noted Allergy Reaction NSAIDS (NON-STEROIDAL ANTI-INFLAM* 9 [...] CAFFEINE ORAL Take 175 mg by mouth. Criminal Investigative Agent: Addendum Therapy (PT/OT/Speech/Resp) ID: [id number] 01/05/2025 1:11 PM Author: SELENE MCLEAN Signed by SELENE MCLEAN PT on 01/05/2025 at 1:11 PM * * * This document replaces document [id number] * * * Document text: Program_ID:[id number] Access Code: [email or web address] URL: [email or web address] [employer]/ Date: 01-05-2025 Prepared By: Selene Mclean Program [...] weekly - 1 sets - 10 reps ----- Normal [facility] Large Joint Arthro/Inj: R spears bacromial bursaon 01-05-2025 Garrison Lee PA-C 01/05/2025 11:54 AM Large Joint Arthro/Inj: R subacromial bursa 01/05/2025 [...] these instructions. Informed Consent Consent Obtained: Written [place] Protocol A moment to CARE was completed. [...] equipment, possible retained foreign bodies accounted for. [facility] No Panel Informationon 01-05 IMPRESSION: No acute bony abnormality. Mild right glenohumeral osteoarthritis. 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 DIVISION OF RADIOLOGY Radiology Study observation (narrative) [facility] No Panel InformationOrdered By: Ccf Provider on 01-05-2025 [facility] THERAPY NTon 01-05-2025 THERAPY NT HNO ID: [id number] Author: SELENE MCLEAN, ORIN Service: Physical Therapy Author Type: Physical Therapist Type: Therapy (PT/OT/Speech/Resp) Filed: 01/05/2025 13:11 Note Text: Program_ID:[id number] Access Code: [email or web address] URL: [email or web address] [employer]/ Date: 01-05-2025 Prepared By: Selene Mclean Program [...] weekly - 1 sets - 10 reps Normal [facility] XR SHLDR 4V AP/YOUNG/LAT/OUTLE T LTon 01-05-2025 XR SHLDR 4V AP/YOUNG/LAT/OUTLET LT * * *Final Report* * * DATE OF EXAM: Jan 05 2025 10:58AM LZX 5604 - XR SHLDR 4V AP/YOUNG/LAT/OUTLET LT / PROCEDURE REASON: multiple diagnoses * * * * Physician Interpretation * * * * EXAMINATION / TECHNIQUE: XR SHLDR 4V AP/YOUNG/LAT/OUTLET RT, XR SHLDR 4V AP/YOUNG/LAT/OUTLET LT HISTORY: chronic shoulder pain no injury limited rom (accession [id number]), chronic shoulder pain with limited rom no injury (accession [id number]) Pain of both shoulder joints Pain of both shoulder joints COMPARISON: None RESULT: No acute fracture or osseous malalignment is identified in either shoulder. Joint spaces are maintained on the left. Mild right glenohumeral osteoarthritis. IMPRESSION: No acute bony abnormality. Mild right glenohumeral osteoarthritis. Coin Machine Mechanic: Davia Transcribe Date/Time: Jan 05 2025 12:35P Dictated by : DONALD NUNEZ MD This examination was interpreted and the report reviewed and electronically signed by: DONALD NUNEZ MD on Jan 05 2025 12:42PM EST [id number] N Normal [facility] XR SHLDR 4V AP/YOUNG/LAT/OUTLE T RTon 01-05-2025 XR SHLDR 4V AP/YOUNG/LAT/OUTLET RT * * *Final Report* * * DATE OF EXAM: Jan 05 2025 10:58AM LZX 5605 - XR SHLDR 4V AP/YOUNG/LAT/OUTLET RT / PROCEDURE REASON: multiple diagnoses * * * * Physician Interpretation * * * * EXAMINATION / TECHNIQUE: XR SHLDR 4V AP/YOUNG/LAT/OUTLET RT, XR SHLDR 4V AP/YOUNG/LAT/OUTLET LT HISTORY: chronic shoulder pain no injury limited rom (accession [id number]), chronic shoulder pain with limited rom no injury (accession [id number]) Pain of both shoulder joints Pain of both shoulder joints COMPARISON: None RESULT: No acute fracture or osseous malalignment is identified in either shoulder. Joint spaces are maintained on the left. Mild right glenohumeral osteoarthritis. IMPRESSION: No acute bony abnormality. Mild right glenohumeral osteoarthritis. Coin Machine Mechanic: MARKEL Transcribe Date/Time: Jan 05 2025 12:35P Dictated by : DONALD NUNEZ MD This examination was interpreted and the report reviewed and electronically signed by: DONALD NUNEZ MD on Jan 05 2025 12:42PM EST [id number] N Normal [facility] XR Shoulder - left 4 Viewson 01-05-2025 * * *Final Report* * * DATE OF EXAM: Jan 05 2025 10:58AM LZX 5604 - XR SHLDR 4V AP/YOUNG/LAT/OUTLET LT / PROCEDURE REASON: multiple diagnoses * * * * Physician Interpretation * * * * EXAMINATION / TECHNIQUE: XR SHLDR 4V AP/YOUNG/LAT/OUTLET RT, XR SHLDR 4V AP/YOUNG/LAT/OUTLET LT HISTORY: chronic shoulder pain no injury limited rom (accession [id number]), chronic shoulder pain with limited rom no injury (accession [id number]) Pain of both shoulder joints Pain of both shoulder joints COMPARISON: None RESULT: No acute fracture or osseous malalignment is identified in either shoulder. Joint spaces are maintained on the left. Mild right glenohumeral osteoarthritis. DIVISION OF RADIOLOGY Provider, [facility] - 01/05/2025 * * *Final Report* * * DATE OF EXAM: Jan 05 2025 10:58AM LZX 5604 - XR SHLDR 4V AP/YOUNG/LAT/OUTLET LT / PROCEDURE REASON: multiple diagnoses * * * * Physician Interpretation * * * * EXAMINATION / TECHNIQUE: XR SHLDR 4V AP/YOUNG/LAT/OUTLET RT, XR SHLDR 4V AP/YOUNG/LAT/OUTLET LT HISTORY: chronic shoulder pain no injury limited rom (accession [id number]), chronic shoulder pain with limited rom no injury (accession [id number]) Pain of both shoulder joints Pain of both shoulder joints COMPARISON: None RESULT: No acute fracture or osseous malalignment is identified in either shoulder. Joint spaces are maintained on the left. Mild right glenohumeral osteoarthritis. IMPRESSION IMPRESSION: No acute bony abnormality. Mild right glenohumeral osteoarthritis. Coin Machine Mechanic: MARKEL Transcribe Date/Time: Jan 05 2025 12:35P Dictated by : DONALD NUNEZ MD This examination was interpreted and the report reviewed and electronically signed by: DONALD NUNEZ MD on Jan 05 2025 12:42PM EST [facility] XR Shoulder - right 4 Viewso n 01-05-2025 * * *Final Report* * * DATE OF EXAM: Jan 05 2025 10:58AM LZX 5605 - XR SHLDR 4V AP/YOUNG/LAT/OUTLET RT / PROCEDURE REASON: multiple diagnoses * * * * Physician Interpretation * * * * EXAMINATION / TECHNIQUE: XR SHLDR 4V AP/YOUNG/LAT/OUTLET RT, XR SHLDR 4V AP/YOUNG/LAT/OUTLET LT HISTORY: chronic shoulder pain no injury limited rom (accession [id number]), chronic shoulder pain with limited rom no injury (accession [id number]) Pain of both shoulder joints Pain of both shoulder joints COMPARISON: None RESULT: No acute fracture or osseous malalignment is identified in either shoulder. Joint spaces are maintained on the left. Mild right glenohumeral osteoarthritis. DIVISION OF RADIOLOGY Provider, [facility] - 01/05/2025 * * *Final Report* * * DATE OF EXAM: Jan 05 2025 10:58AM LZX 5605 - XR SHLDR 4V AP/YOUNG/LAT/OUTLET RT / PROCEDURE REASON: multiple diagnoses * * * * Physician Interpretation * * * * EXAMINATION / TECHNIQUE: XR SHLDR 4V AP/YOUNG/LAT/OUTLET RT, XR SHLDR 4V AP/YOUNG/LAT/OUTLET LT HISTORY: chronic shoulder pain no injury limited rom (accession [id number]), chronic shoulder pain with limited rom no injury (accession [id number]) Pain of both shoulder joints Pain of both shoulder joints COMPARISON: None RESULT: No acute fracture or osseous malalignment is identified in either shoulder. Joint spaces are maintained on the left. Mild right glenohumeral osteoarthritis. IMPRESSION IMPRESSION: No acute bony abnormality. Mild right glenohumeral osteoarthritis. Coin Machine Mechanic: [facility]ITAL[facility] Transcribe Date/Time: Jan 05 2025 12:35P Dictated by : DONALD NUNEZ MD This examination was interpreted and the report reviewed and electronically signed by: DONALD NUNEZ MD on Jan 05 2025 12:42PM [facility] CNOVon 12-15-2024 CNOV Office Visit (LOORRM ) SVETLANA CARVER ([id number]) 1960 F Date Time Provider Department 12/15/24 10:15 AM GARRISON LEE During your visit today, we recorded the following information about you: Garrison Lee PA-C 12/15/2024 10:38 AM Signed This document has been created with the use of voice recognition technology, including AI Scribe technology. It may contain inaccuracies: misspellings, inaccurate syntax or word sense that escaped review. CHIEF COMPLAINT: Svetlana Carver is a 64 year old female who presents today for follow up of both knees. HISTORY OF PRESENT ILLNESS: PAIN EVALUATION 12/14/2024 2226 Pain Level: 7 Pain Location: Knee-Left Description: Aching;Dull Duration Units: Months Frequency: Intermittent Intervention/Comfort measure: Medication;Cold;Distr actions;Reposition;Re laxation;Positioning HISTORY: Svetlana is a 64-year-old female presenting for evaluation of recurrent left knee pain. Svetlana reports recurrent left knee pain, for which she received a cortisone injection in June. She experienced temporary relief but notes the pain has returned. She describes the pain as part of a rotating pattern of multiple pains, including significant shoulder and back pain. She is seeking treatment to prepare for an upcoming half marathon in [facility] on the or , with travel scheduled [...] these instructions. Informed Consent Consent Obtained: Written [place] Protocol A moment to CARE was completed. [...] Limited extension observed. Previous cortisone injection in N (more content not included)... Normal [facility] Large Joint Arthro/Inj: L kn ee jointon 12-15-2024 Garrison Lee PA-C 12/15/2024 10:38 AM Large Joint Arthro/Inj: L knee joint 12/15/2024 [...] these instructions. Informed Consent Consent Obtained: Written [place] Protocol A moment to CARE was completed. [...] equipment, possible retained foreign bodies accounted for. [facility] CNOVon 07-25-2024 CNOV Office Visit (LOORRM ) SVETLANA CARVER ([id number]) 1960 F Date Time Provider Department 07/25/24 1:45 PM GARRISON LEEORRLizzie During your visit today, we recorded the following information about you: Garrison Lee PA-C 07/25/2024 2:21 PM Signed This document has been created with the use of voice recognition technology. It may contain inaccuracies: misspellings, inaccurate syntax or word sense that escaped review. CHIEF COMPLAINT: Svetlana Carver is a 64 year old female [...] recent injury. Pain increases with stairs. HISTORY: Svetlana Carver is here for follow up of [...] knee joints Informed Consent Consent Obtained: Written [place] Protocol A moment to CARE was completed. [...] today Discusse (more content not included)... Normal [facility] Large Joint Arthro/Inj: bila teral knee jointson 07-25-2024 Garrison eLe PA-C 07/25/2024 2:21 PM Large Joint Arthro/Inj: bilateral knee joints Informed Consent Consent Obtained: Written [place] Protocol A moment to CARE was completed. [...] Plan of Care Visit completed when applicable [facility] Alanine aminotransferase [En zymatic activity/volume] in Serum or PlasmaOrdered By: Vlad Gallagher on 01-17-2024 ALT [Catalytic activity/Vol] 21 U/L 7-[address] [facility] Albumin [Mass/volume] in Ser um or Plasma by Bromocresol green (BCG) dye binding methoOrdered By: Vlad Gallagher on 01-17-2024 Albumin BCG dye [Mass/Vol] 4.3 g/dL 3.5-5.[address] [facility] Alkaline phosphatase [Enzyma tic activity/volume] in Serum or PlasmaOrdered By: Vlad Gallagher on 01-17-2024 ALP [Catalytic activity/Vol] 70 U/L 34-[address] [facility] Aspartate aminotransferase [ Enzymatic activity/volume] in Serum or PlasmaOrdered By: Vlad Gallagher on 01-17-2024 AST [Catalytic activity/Vol] 23 U/L 13-[address] [facility] Basophils Auto (Bld) [#/Vol] Ordered By: Vlad Gallagher on 01-17-2024 Basophils (Bld) [#/Vol] 0.0 10*3/uL 0.0-0.[address] [facility] Basophils/100 WBC Auto (Bld) Ordered By: Vlad Gallagher on 01-17-2024 Basophils/100 WBC (Bld) 0.8 % . [facility] Bilirubin.total [Mass/volume ] in Serum or PlasmaOrdered By: Vlad Gallagher on 01-17-2024 Bilirubin [Mass/Vol] 0.3 mg/dL 0.3-1.0 [facility] C reactive protein [Mass/vol ume] in Serum or PlasmaOrdered By: Vlad Gallagher on 01-17-2024 CRP [Mass/Vol] < 0.5 mg/dL 0.0-0.[address] [facility] Calcium [Mass/volume] in Ser um or PlasmaOrdered By: Vlad Gallagher on 01-17-2024 Calcium [Mass/Vol] 9.6 mg/dL 8.6-10.[address] [facility] Carbon dioxide, total [Moles /volume] in Serum or PlasmaOrdered By: Vlad Gallagher on 01-17-2024 CO2 [Moles/Vol] 28.0 mmol/L 21.0-31.0 [facility] Chloride [Moles/volume] in S grayson or PlasmaOrdered By: Vlad Gallagher on 01-17-2024 Chloride [Moles/Vol] 105 mmol/L 98-107 [facility] Creatinine [Mass/volume] in Serum or PlasmaOrdered By: Vlad Gallagher on 01-17-2024 Creatinine [Mass/Vol] 0.87 mg/dL 0.60-1.20 [facility] Eosinophils Auto (Bld) [#/Vo l]Ordered By: Vlad Gallagher on 01-17-2024 Eosinophils (Bld) [#/Vol] 0.2 10*3/uL 0.0-0.[address] [facility] Eosinophils/100 WBC Auto (Bl d)Ordered By: Vlad Gallagher on 01-17-2024 Eosinophils/100 WBC (Bld) 2.7 % . [facility] Erythrocyte distribution wid th Auto (RBC) [Ratio]Ordered By: Vlad Gallagher on 01-17-2024 Erythrocyte distribution width (RBC) [Ratio] 14.5 % 11.9-15.[address] [facility] Erythrocyte sedimentation ra te by Photometric methodOrdered By: Vlad Gallagher on 01-17-2024 ESR Photometric method (Bld) [Velocity] 44 mm/hr 0-[address] [facility] Globulin Calc (S) [Mass/Vol] Ordered By: Vlad Gallagher on 01-17-2024 Globulin (S) [Mass/Vol] 3.0 g/dL [facility] Glucose [Mass/volume] in Ser um or PlasmaOrdered By: Vlad Gallagher on 01-17-2024 Glucose [Mass/Vol] 86 mg/dL 70-[address] [facility] Comment on above: ADA recommended refe rence rangeRandom Glucose Reference Range is dependent on time and content of last meal. Glucose of more than 200 mg/dL in a nonstressed, ambulatory subject supports the diagnosis of Diabetes Mellitus. Hematocrit Auto (Bld) [Volum e fraction]Ordered By: Vlad Gallagher on 01-17-2024 Hematocrit (Bld) [Volume fraction] 41.6 % 34.0-46.[address] [facility] Hemoglobin [Mass/volume] in BloodOrdered By: Vlad Gallagher on 01-17-2024 Hemoglobin (Bld) [Mass/Vol] 13.8 g/dL 11.8-15.[address] [facility] Leukocytes [#/volume] correc yoel for nucleated erythrocytes in Blood by Automated counOrdered By: Vlad Gallagher on 01-17-2024 WBC corrected for nucl RBC Auto (Bld) [#/Vol] 6.2 10*3/uL 3.8-11.[address] [facility] Lymphocytes Auto (Bld) [#/Vo l]Ordered By: Vlad Gallagher on 01-17-2024 Lymphocytes (Bld) [#/Vol] 1.5 10*3/uL 1.00-4.[address] [facility] Lymphocytes/100 WBC Auto (Bl d)Ordered By: Vlad Gallagher on 01-17-2024 Lymphocytes/100 WBC (Bld) 23.4 % . [facility] MCH Auto (RBC) [Entitic mass ]Ordered By: Vlad Gallagher on 01-17-2024 MCH (RBC) [Entitic mass] 31.1 pg 24.7-34.[address] [facility] MCHC Auto (RBC) [Mass/Vol]Or dered By: Vlad Gallagher on 01-17-2024 MCHC (RBC) [Mass/Vol] 33.1 g/dL 32.0-35.0 [facility] MCV Auto (RBC) [Entitic vol] Ordered By: Vlad Gallagher on 01-17-2024 MCV (RBC) [Entitic vol] 93.9 fL 80-100 [facility] Magnesium [Mass/volume] in S grayson or PlasmaOrdered By: Vlad Gallagher on 01-17-2024 Magnesium [Mass/Vol] 2.1 mg/dL 1.9-2.7 [facility] Monocytes Auto (Bld) [#/Vol] Ordered By: Vlad Gallagher on 01-17-2024 Monocytes (Bld) [#/Vol] 0.6 10*3/uL 0.0-0.[address] [facility] Monocytes/100 WBC Auto (Bld) Ordered By: Vlad Gallagher on 01-17-2024 Monocytes/100 WBC (Bld) 10.3 % . [facility] Neutrophils Auto (Bld) [#/Vo l]Ordered By: Vlad Gallagher on 01-17-2024 Neutrophils (Bld) [#/Vol] 3.9 10*3/uL 1.8-7.[address] [facility] Neutrophils/100 WBC Auto (Bl d)Ordered By: Vlad Gallagher on 01-17-2024 Neutrophils/100 WBC (Bld) 62.8 % . [facility] No Panel InformationOrdered By: Vlad Gallagher on 01-17-2024 Anti-Nuclear Antibody Comment 2 See comment . [facility] Comment on above: Pattern Potential Di sease Association Homogeneous Systemic Lupus Erythematosus, Drug Induced Systemic Lupus Erythematosus, Chronic Autoimmune hepatitis, Juvenile Idiopathic Arthritis Speckled Sjogren Syndrome, Systemic Lupus Erythematosus, Subacute Cutaneous Lupus, Lupus, Congenital Heart Block, Mixed Connective Tissue Disease, Scleroderma-diffuse, Scleroderma-Autoimmune Myositis Overlap Syndrome, Systemic Lupus Gzjovcpbetuhm-Siyulkgaype-Cqrprtoucw Myositis Overlap Syndrome, Systemic Autoimmune Rheumatic Disease, [...] Cytopenias, Linear Scleroderma, Antiphospholipid Syndrome Performed at: [employer] [id number] Director: Haresh Obregon PhD, Phone: [phone] Estimated GFR (CKD-EPI) > 60.0 mL/Min [facility] Creatinine Clearance (Chem N/A [facility] Nucleated erythrocytes [Pres ence] in Blood by Automated countOrdered By: Vlad Gallagher on 01-17-2024 Nucleated RBC Auto Ql (Bld) 0.1 /100{WBC} 0-0.[address] [facility] Parathyrin.intact [Mass/volu me] in Serum or PlasmaOrdered By: Vlad Gallagher on 01-17-2024 Parathyrin.intact [Mass/Vol] 40.8 pg/mL 12-[address] [facility] Phosphate [Mass/volume] in S grayson or PlasmaOrdered By: Vlad Gallagher on 01-17-2024 Phosphate [Mass/Vol] 2.6 mg/dL 2.5-4.5 [facility] Platelet mean volume Auto (B ld) [Entitic vol]Ordered By: Vlad Gallagher on 01-17-2024 Platelet mean volume (Bld) [Entitic vol] 10.2 fL 6.3-10.[address] [facility] Platelets Auto (Bld) [#/Vol] Ordered By: Vlad Gallagher on 01-17-2024 Platelets (Bld) [#/Vol] 238 10*3/uL 150-[address] [facility] Potassium [Moles/volume] in Serum or PlasmaOrdered By: Vlad Gallagher on 01-17-2024 Potassium [Moles/Vol] 4.2 mmol/L 3.5-5.1 [facility] Protein [Mass/volume] in Ser um or PlasmaOrdered By: Vlad Gallagher on 01-17-2024 Protein [Mass/Vol] 7.3 g/dL 6.4-8.[address] [facility] RBC Auto (Bld) [#/Vol]Ordere d By: Vlad Gallagher on 01-17-2024 RBC (Bld) [#/Vol] 4.43 10*6/uL 3.60-5.00 [facility] Serum nuclear antibody titer Ordered By: Vlad Gallagher on 01-17-2024 Nuclear Ab (S) [Titer] Positive . [facility] Comment on above: Negative <1:80 Borde rline 1:80 Positive >1:80 Serum or plasma albumin/glob ulin mass ratioOrdered By: Vlad Gallagher on 01-17-2024 Albumin/Globulin [Mass ratio] 1.4 {ratio} [facility] Serum or plasma anion gap de terminationOrdered By: Vlad Gallagher on 01-17-2024 Anion gap [Moles/Vol] 8.2 mmol/L 6.0-15.0 [facility] Serum speckled pattern antin uclear antibody (ESTUARDO) titerOrdered By: Vlad Gallagher on 01-17-2024 Speckled nuclear Ab pattern (S) [Titer] 1:[address] [facility] Comment on above: ICAP nomenclature: A C-2,4,5,29 Sodium [Moles/volume] in Ser um or PlasmaOrdered By: Vlad Gallagher on 01-17-2024 Sodium [Moles/Vol] 137 mmol/L 136-[address] [facility] Thyrotropin [Units/volume] i n Serum or PlasmaOrdered By: Vlad Gallagher on 01-17-2024 TSH Qn 3.40 m[IU]/L 0.45-5.[address] [facility] Urea nitrogen [Mass/volume] in Serum or PlasmaOrdered By: Vlad Gallagher on 01-17-2024 Urea nitrogen [Mass/Vol] 24 mg/dL 7-[address] [facility] WBC Auto (Bld) [#/Vol]Ordere d By: Vlad Gallagher on 01-17-2024 WBC (Bld) [#/Vol] 6.2 10*3/uL 3.8-11.[address] [facility] XR Knee - left 4 Viewson IMPRESSION: 1. Degenerative arthrosis of both knees, LEFT greater than RIGHT. Coin Machine Mechanic: MARKEL Transcribe Date/Time: Oct 29 2023 12:25P Dictated by : DARLENE SPRINGER MD This examination was interpreted and the report reviewed and electronically signed by: DARLENE SPRINGER MD on Oct 29 2023 12:27PM [facility] DIVISION OF RADIOLOGY * * *Final [...] on the RIGHT. DIVISION OF RADIOLOGY [facility] * * *Final Report* * [...] of both knees, LEFT greater than RIGHT. Coin Machine Mechanic: MARKEL Transcribe Date/Time: Oct 29 2023 12:25P Dictated by : DARLENE SPRINGER MD This examination was interpreted and the report reviewed and electronically signed by: DARLENE SPRINGER MD on Oct 29 2023 12:27PM EST [facility] Radiology Study observation (narrative) [facility] XR Knee - left 4 ViewsOrdere d By: Ccf Provider on 10-29-2023 [facility] PTH INTACTon 12-03-2022 PTH, Intact 25 pg/mL Normal 15-65 [facility] Comment on above: Performed By: #### P THINT #### [facility] [address] [address] [address] Noris Duenas MAGNESIUMon 12-02-2022 Magnesium [Mass/Vol] 2.0 mg/dL Normal 1.8-2.4 [facility] Comment on above: Performed By: #### P HOS, MG, BMP ####[facility] [address] [address]Dr[address] Noris Duenas PHOSPHORUSon 12-02-2022 Phosphate [Mass/Vol] 3.5 mg/dL Normal 2.6-4.7 [facility] Comment on above: Performed By: #### P HOS, MG, BMP ####[facility] [address] [address]Dr. Noris Duenas PROF CHEM 8 (BAS METB)on Anion gap [Moles/Vol] 12.0 mmol/L Normal [facility] Comment on above: Performed By: #### P HOS, MG, BMP #### [facility] [address] [address] [address] Noris Duenas Calcium [Mass/Vol] 9.4 mg/dL Normal 8.5-10.1 [facility] Comment on above: Performed By: #### P HOS, MG, BMP #### [facility] [address] [address] [address] Noris Duenas Chloride [Moles/Vol] 103 mmol/L Normal 98-107 [facility] Comment on above: Performed By: #### P HOS, MG, BMP #### [facility] [address] [address] [address] Noris Duenas CO2 [Moles/Vol] 29.0 mmol/L Normal 21.0-32.0 [facility] Comment on above: Performed By: #### P HOS, MG, BMP #### [facility] [address] [address] [address] Noris Duenas Creatinine [Mass/Vol] 0.70 mg/dL Normal 0.55-1.02 [facility] [facility] Comment on above: Performed By: #### P HOS, MG, BMP #### [facility] [address] [address] [address] Noris Duenas EGFR-AF GAMBIAN >60 Normal >=60 [facility] Comment on above: Performed By: #### P HOS, MG, BMP #### [facility] [address] [address] [address] Noris Duenas EGFR-NON AF GAMBIAN >60 Normal >=60 [facility] Comment on above: Performed By: #### P HOS, MG, BMP #### [facility] [address] [address] [address] Noris Duenas Glucose [Mass/Vol] 95 mg/dL Normal 74-106 [facility] Comment on above: Performed By: #### P HOS, MG, BMP #### [facility] [address] [address] [address] Noris Duenas Potassium [Moles/Vol] 4.0 mmol/L Normal 3.5-5.1 [facility] Comment on above: Performed By: #### P HOS, MG, BMP #### [facility] [address] [address] [address] Noris Duenas Sodium [Moles/Vol] 140 mmol/L Normal 136-145 [facility] Comment on above: Performed By: #### P HOS, MG, BMP #### [facility] [address] [address] [address] Noris Duenas Urea nitrogen [Mass/Vol] 17.0 mg/dL Normal 7.0-18.0 [facility] Comment on above: Performed By: #### P HOS, MG, BMP #### [facility] [address] [address] [address] Noris Duenas Urea nitrogen/Creatinine [Mass ratio] 24.3 mg/mg Normal [facility] Comment on above: Performed By: #### P HOS, MG, BMP #### [facility] [address] [address] [address] Noris Duenas VITAMIN D 25 OHon 12-02-2022 VIT D 25-OH 76.9 ng/mL Normal [facility] Comment on above: Performed By: #### V ITAD #### [facility] [address] [address] [address] Noris Duenas VIT D RANGES SEE BELOW Normal [facility] Comment on above: Result Comment: <20 ng/mL Vit D deficient 20 - <30 ng/mL Vit D insufficient 30 - 100 ng/mL Vit D sufficient >100 ng/mL Potential Toxicity Performed By: #### V ITAD #### [facility] [address] [address] [address] Noris Duenas XR KNEE GENERAL 4V AP BOTH/P A BOTH/LAT/MERC LEFTon 06-09-2022 [facility] XR Knee - left 4 Viewson IMPRESSION: Left knee osteoarthritis as described. Coin Machine Mechanic: MARKEL Transcribe Date/Time: Jun 09 2022 1:58P Dictated by : HEBER CAMACHO MD This examination was interpreted and the report reviewed and electronically signed by: HEBER CAMACHO MD on Jun 09 2022 1:58PM [facility] DIVISION OF RADIOLOGY * * *Final [...] other significant abnormality. DIVISION OF RADIOLOGY Provider, [facility]ine [facility] - 06/09/2022 * * *Final Report* [...] IMPRESSION IMPRESSION: Left knee osteoarthritis as described. Coin Machine Mechanic: MARKEL Transcribe Date/Time: Jun 09 2022 1:58P Dictated by : HEBER CAMACHO MD This examination was interpreted and the report reviewed and electronically signed by: HEBER CAMACHO MD on Jun 09 2022 1:58PM EST [facility] Radiology Study observation (narrative) [facility] XR Knee - left 4 ViewsOrdere d By: Ccf Provider on 06-09-2022 [facility] CBC AUTO DIFFon 05-18-2022 BASO # 0.0 103/ul Normal 0.0-0.1 [facility] Comment on above: Performed By: #### C BC #### [facility] [address] [place] [address] Dr. Noris Duenas Basophils/100 WBC (Bld) 0.8 % Normal 0.2-2.0 [facility] Comment on above: Performed By: #### C BC #### [facility] [address] [place] [address] Dr. Noris Duenas EO # 0.2 103/ul Normal 0.0-0.7 [facility] Comment on above: Performed By: #### C BC #### [facility] [address] [place] [address] Dr. Noris Duenas Eosinophils/100 WBC (Bld) 3.8 % Normal 0.9-7.0 [facility] Comment on above: Performed By: #### C BC #### [facility] [address] [place] [address] Dr. Noris Duenas Erythrocyte distribution width (RBC) [Ratio] 13.2 % Normal 11.0-15.0 [facility] Comment on above: Performed By: #### C BC #### [facility] [address] [place] [address] Dr. Noris Duenas Hematocrit (Bld) [Volume fraction] 41.2 % Normal 36.0-48.0 [facility] Comment on above: Performed By: #### C BC #### [facility] [address] [place] [address] Dr. Noris Duenas Hemoglobin (Bld) [Mass/Vol] 13.2 g/dL Normal 12.0-16.0 [facility] Comment on above: Performed By: #### C BC #### [facility] [address] [place] [address] Dr. Noris Duenas IG # 0.01 10e3/ul Normal 0.00-0.03 [facility] Comment on above: Performed By: #### C BC #### [facility] [address] [place] [address] Dr. Noris Duenas IG % 0.2 % Normal 0.0-0.5 [facility] Comment on above: Performed By: #### C BC #### [facility] [address] [place] [address] Dr. Noris Duenas LYMPH # 1.7 103/ul Normal 1.2-3.8 [facility] Comment on above: Performed By: #### C BC #### [facility] [address] [place] [address] Dr. Noris Duenas Lymphocytes/100 WBC (Bld) 35.0 % Normal 20.5-60.0 [facility] Comment on above: Performed By: #### C BC #### [facility] [address] [place] [address] Dr. Noris Duenas MANUAL DIFF REQ NO Normal [facility] [place] Comment on above: Performed By: #### C BC #### [facility] [address] [address] [address] Noris Duenas MCH (RBC) [Entitic mass] 30.3 pg Normal 26.7-34.0 [facility] Comment on above: Performed By: #### C BC #### [facility] [address] [place] [address] Dr. Noris Duenas MCHC (RBC) [Mass/Vol] 32.0 g/dL Normal 29.9-35.2 [facility] Comment on above: Performed By: #### C BC #### [facility] [address] [place] [address] Dr. Noris Duenas MCV (RBC) [Entitic vol] 94.5 fL Normal 81.0-99.0 [facility] Comment on above: Performed By: #### C BC #### [facility] [address] [place] [address] Dr. Noris Duenas MONO # 0.6 103/ul Normal 0.3-0.8 [facility] Comment on above: Performed By: #### C BC #### [facility] [address] [place] [address] Dr. Noris Duenas Monocytes/100 WBC (Bld) 13.4 % Critically high 1.7-12. 0 [facility] Comment on above: Performed By: #### C BC #### [facility] [address] [place] [address] Dr. Noris Duenas NEUT # 2.2 103/ul Normal 1.4-6.5 [facility] Comment on above: Performed By: #### C BC #### [facility] [address] [place] [address] Dr. Noris Duenas Neutrophils/100 WBC (Bld) 46.8 % Normal 43.0-75.0 [facility] Comment on above: Performed By: #### C BC #### [facility] [address] [place] [address] Dr. Noris Duenas Platelet mean volume (Bld) [Entitic vol] 10.7 fL Normal 9.5-13.5 [facility] Comment on above: Performed By: #### C BC #### [facility] [address] [address] [address] Noris Duenas PLT 237 103/ul Normal 150-450 [facility] Comment on above: Performed By: #### C BC #### [facility] [address] [address] [address] Noris Duenas RBC 4.36 106/ul Normal 4.20-5.40 [facility] Comment on above: Performed By: #### C BC #### [facility] [address] [address] [address] Noris Duenas WBC 4.8 103/ul Normal 4.0-11.0 [facility] Comment on above: Performed By: #### C BC #### [facility] [address] [place] [address] Dr. Noris Duneas CRPon 05-18-2022 CRP [Mass/Vol] mg/L Normal <=1.0 [facility] Comment on above: Performed By: #### C MP, LIPID, CRP #### [facility] [address] [place] [address] Dr. Noris Duenas LIPID PROFILEon 05-18-2022 CHOL-HDL RATIO NORM SEE BELOW Normal [facility] Comment on above: Result Comment: 3.3 - 4.4 LOW RISK 4.4 - 7.1 AVERAGE RISK 7.1 - 11.0 MODERATE RISK >11.0 HIGH RISK Performed By: #### C MP, LIPID, CRP #### [facility] [address] [place] [address] Dr. Noris Duenas Cholesterol [Mass/Vol] 193 mg/dL Normal <=200 [facility] Comment on above: Performed By: #### C MP, LIPID, CRP #### [facility] [address] [place] [address] Dr. Noris Duenas Cholesterol in HDL [Mass/Vol] 56 mg/dL Normal 40-60 [facility] Comment on above: Performed By: #### C MP, LIPID, CRP #### [facility] [address] [place] [address] Dr. Noris Duenas Cholesterol in LDL [Mass/Vol] 105.6 mg/dL Normal [facility] Comment on above: Performed By: #### C MP, LIPID, CRP #### [facility] [address] [address] [address] Noris Duenas Cholesterol.total/Choles terol in HDL [Mass ratio] 3.4 {ratio} Normal [facility] Comment on above: Performed By: #### C MP, LIPID, CRP #### [facility] [address] [address] [address] Noris Duenas HDL NORMAL > or = 60 mg/dl - LO W CARDIOVASCULAR RISK <40 mg/dl - HIGH CARDIOVASCULAR RISK Normal [facility] Comment on above: Performed By: #### C MP, LIPID, CRP #### [facility] [address] [address] [address] Noris Duenas LDL CALC NORMAL SEE BELOW Normal [facility] Comment on above: Result Comment: <100 mg/dl OPTIMAL 100 - 129 mg/dl NEAR OR ABOVE OPTIMAL 130 - 159 mg/dl BORDERLINE HIGH 160 - 189 mg/dl HIGH >190 mg/dl VERY HIGH Performed By: #### C MP, LIPID, CRP #### [facility] [address] [address] [address] Noris Duenas Triglyceride [Mass/Vol] 157 mg/dL Critically high <=150 [facility] Comment on above: Performed By: #### C MP, LIPID, CRP #### [facility] [address] [place] [address] Dr. Noris Duenas VLDL CALC 31.4 mg/dL Normal [facility] Comment on above: Performed By: #### C MP, LIPID, CRP #### [facility] [address] [address] [address] Noris Duenas PROF 14(COMP METB)on 022 Albumin [Mass/Vol] 3.7 g/dL Normal 3.4-5.0 [facility] Comment on above: Performed By: #### C MP, LIPID, CRP #### [facility] [address] [place] [address] Dr. Noris Duenas Albumin/Globulin [Mass ratio] 1.0 {ratio} Normal [facility] Comment on above: Performed By: #### C MP, LIPID, CRP #### [facility] [address] [address] [address] Noris Duenas ALP [Catalytic activity/Vol] 60 U/L Normal 46-116 [facility] Comment on above: Performed By: #### C MP, LIPID, CRP #### [facility] [address] [address] [address] Noris Duenas ALT [Catalytic activity/Vol] 30 U/L Normal 14-59 [facility] Comment on above: Performed By: #### C MP, LIPID, CRP #### [facility] [address] [place] [address] Dr. Noris Duenas Anion gap [Moles/Vol] 10.4 mmol/L Normal [facility] Comment on above: Performed By: #### C MP, LIPID, CRP #### [facility] [address] [address] [address] Noris Duenas AST [Catalytic activity/Vol] 23 U/L Normal 15-37 [facility] Comment on above: Performed By: #### C MP, LIPID, CRP #### [facility] [address] [place] [address] Dr. Noris Duenas Bilirubin [Mass/Vol] 0.3 mg/dL Normal 0.2-1.0 [facility] Comment on above: Performed By: #### C MP, LIPID, CRP #### [facility] [address] [place] [address] Dr. Noris Duenas Calcium [Mass/Vol] 9.4 mg/dL Normal 8.5-10.1 [facility] Comment on above: Performed By: #### C MP, LIPID, CRP #### [facility] [address] [place] [address] Dr. Noris Duenas Chloride [Moles/Vol] 103 mmol/L Normal 98-107 [facility] Comment on above: Performed By: #### C MP, LIPID, CRP #### [facility] [address] [place] [address] Dr. Noris Duenas CO2 [Moles/Vol] 27.7 mmol/L Normal 21.0-32.0 [facility] Comment on above: Performed By: #### C MP, LIPID, CRP #### [facility] [address] [address] [address] Noris Duenas Creatinine [Mass/Vol] 0.91 mg/dL Normal 0.55-1.02 [facility] Comment on above: Performed By: #### C MP, LIPID, CRP #### [facility] [address] [address] [address] Noris Duenas EGFR-AF GAMBIAN >60 Normal >=60 [facility] Comment on above: Performed By: #### C MP, LIPID, CRP #### [facility] [address] [address] [address] Noris Duenas EGFR-NON AF GAMBIAN >60 Normal >=60 [facility] Comment on above: Performed By: #### C MP, LIPID, CRP #### [facility] [address] [address] [address] Noris Duenas Globulin (S) [Mass/Vol] 3.7 g/dL Normal [facility] Comment on above: Performed By: #### C MP, LIPID, CRP #### [facility] [address] [address] [address] Noris Duenas Glucose [Mass/Vol] 101 mg/dL Normal 74-106 [facility] Comment on above: Performed By: #### C MP, LIPID, CRP #### [facility] [address] [address] [address] Noris Duenas Potassium [Moles/Vol] 4.1 mmol/L Normal 3.5-5.1 [facility] Comment on above: Performed By: #### C MP, LIPID, CRP #### [facility] [address] [address] [address] Noris Duenas Protein [Mass/Vol] 7.4 g/dL Normal 6.4-8.2 [facility] Comment on above: Performed By: #### C MP, LIPID, CRP #### [facility] [address] [place], [place] [address] Dr. Noris Duenas Sodium [Moles/Vol] 137 mmol/L Normal 136-145 [facility] Comment on above: Performed By: #### C MP, LIPID, CRP #### [facility] [address] [place], [place] [address] Dr. Noris Duenas Urea nitrogen [Mass/Vol] 19.0 mg/dL Critically high 7.0-18 .0 [facility] Comment on above: Performed By: #### C MP, LIPID, CRP #### [facility] [address] [place], [place] [address] Dr. Noris Duenas Urea nitrogen/Creatinine [Mass ratio] 20.9 mg/mg Normal [facility] Comment on above: Performed By: #### C MP, LIPID, CRP #### [facility] [address] [place], [place] [address] Dr. Noris Duenas SED RATE [facility] 2021 SED RATE 32 mm/hr Critically high <=30 [facility] [place] Comment on above: Performed By: #### S EDR ####[facility] [id number] [place], [place] [address]TaDr. Noris Duenas [facility]28 SARS-CoV-2 (COVID-19) RNA EUSEBIO+probe Ql (Unsp spec) Not detected Normal NOT DETECTED [facility] Comment on above: Result Comment: This test is not yet approved or cleared by the [place] FDA. When there are no FDA-approved or cleared tests available, and other criteria are met, FDA can make tests available under an emergency access mechanism called an Emergency Use Authorization (EUA). The EUA for this test is supported by the [place] and Human Service's (HHS's) declaration [...] consistent with SARS-CoV-2. Performed By: #### [facility] #### [facility] [address] [address] [address] Noris Duenas XR Knee - left 4 Viewson IMPRESSION: Moderate osteoarthritis left knee similar to 2019. 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 DIVISION OF RADIOLOGY * * *Final [...] mild-moderate degenerative changes. DIVISION OF RADIOLOGY Provider, [facility] - 01/21/2021 * * *Final Report* * [...] Moderate osteoarthritis left knee similar to 2019. Coin Machine Mechanic: MARKEL Transcribe Date/Time: Jan 21 2021 1:23P Dictated by : SILVIO JAMES DO This examination was interpreted and the report reviewed and electronically signed by: ALEX ZAMUDIO MD on Jan 21 2021 2:17PM EST [facility] Radiology Study observation (narrative) [facility] XR Knee - left 4 ViewsOrdere d By: Ccf Provider on 01-21-2021 [facility] No Panel Information [facility] Vital Signs Date Time Vital Sign Value Performing Clinician Facility 05-04-2025 09:32-0400 Body height 160.02 cm Sussy Johnson MD Work Phone: [facility] 05-04-2025 09:32-0400 Body mass index (BMI) [Ratio] 24.3 kg/m2 Sussy Johnson MD Work Phone: [facility] 05-04-2025 09:32-0400 Body weight 62.14 kg Sussy Johnson MD Work Phone: [facility] 05-04-2025 09:32-0400 Diastolic blood pressure 79 mm[Hg] Sussy Johnson MD Work Phone: [facility] 05-04-2025 09:32-0400 Heart rate 64 /min Sussy Johnson MD Work Phone: [facility] 05-04-2025 09:32-0400 Respiratory rate 12 /min Sussy Johnson MD Work Phone: [facility] 05-04-2025 09:32-0400 Systolic blood pressure 115 mm[Hg] Sussy Johnson MD Work Phone: [facility] 05-15-2024 13:39-0400 Body height 160.02 cm MD Sussy Johnson Work Phone: [facility] 05-15-2024 13:39-0400 Body mass index (BMI) [Ratio] 24.4 kg/m2 MD Sussy Johnson Work Phone: [facility] 05-15-2024 13:39-0400 Body weight 62.59 kg MD Sussy Johnson Work Phone: [facility] 05-15-2024 13:39-0400 Diastolic blood pressure 76 mm[Hg] MD Sussy Johnson Work Phone: [facility] 05-15-2024 13:39-0400 Heart rate 61 /min MD Sussy Johnson Work Phone: [facility] 05-15-2024 13:39-0400 Respiratory rate 12 /min MD Sussy Johnson Work Phone: [facility] 05-15-2024 13:39-0400 Systolic blood pressure 111 mm[Hg] MD Sussy Johnson Work Phone: [facility] 07-27-2023 09:30-0500 Body height 160.02 cm Sussy Johnson Other [facility] [employer] Other 07-27-2023 09:30-0500 Body mass index (BMI) [Ratio] 23.95 kg/m2 Sussy Johnson Other [facility] [employer] Other 07-27-2023 09:30-0500 Body weight 61.33 kg Sussy Johnson Other [facility] [employer] Other 07-27-2023 09:30-0500 Diastolic blood pressure 77 mm[Hg] Sussy Johnson Other [facility] [employer] Other 07-27-2023 09:30-0500 Systolic blood pressure 130 mm[Hg] Sussy Johnson Other [facility] [employer] Other Encounters Encounter Date Encounter Type Care Provider Facility Start: 05-04-2025 End: 05-04-2025 ambulatory Sussy Johnson MD Work Phone: [facility] Work Phone: Start: 05-04-2025 End: 05-04-2025 Patient encounter procedure Piyush Bui DO -[facility] Work Phone: Start: 02-21-2025 End: 02-21-2025 Patient encounter procedure Martine Cade [employer] [address] Work Phone: Start: 02-21-2025 End: 02-21-2025 ambulatory Sussy Johnson MD Work Phone: [facility] Work Phone: Start: 02-13-2025 End: 02-13-2025 ambulatory Selene Mclean PT Work Phone: [facility] Comment on above: Pain in joint of rig ht shoulder (Primary Dx) Start: 01-24-2025 End: 01-24-2025 ambulatory Selene Mclean PT Work Phone: [facility] Comment on above: Pain in joint of rig ht shoulder (Primary Dx) Start: 01-05-2025 End: 01-05-2025 Patient encounter procedure Anitha Ford RT(R) Radiology Comment on above: Primary osteoarthrit is of right shoulder (Primary Dx); Tendinopathy of right rotator cuff; Cervicalgia; Impingement syndrome of left shoulder Start: 01-05-2025 End: 01-05-2025 ambulatory Anitha Ford RT(R) Radiology Comment on above: Radiology XR Pain in joint of rig ht shoulder (Primary Dx); Primary osteoarthritis of right shoulder; Tendinopathy of right rotator cuff; Cervicalgia; Impingement syndrome of left shoulder Start: 01-05-2025 End: 01-05-2025 Subsequent hospital visit by physician Maryjo Cole 1 Work Phone: Radiology Comment on above: Pain of both shoulde r joints [M25.511, M25.512] Start: 12-15-2024 End: 12-15-2024 Patient encounter procedure Garrisonanders Mejiamarylou JOHNSON Work Phone: Orthopaedics Comment on above: Primary osteoarthrit is of left knee (Primary Dx); Primary osteoarthritis of right knee Start: 12-15-2024 End: 12-15-2024 ambulatory GARRISON MEJIAPP Facility:[facility] Start: 07-25-2024 End: 07-25-2024 ambulatory GARRISON MEJIAPP Facility:[facility] Start: 07-25-2024 End: 07-25-2024 Patient encounter procedure Garrison Rosa MINA-Ivan Work Phone: Orthopaedics Comment on above: Primary osteoarthrit is of left knee (Primary Dx); Primary osteoarthritis of right knee Start: 05-15-2024 End: 05-15-2024 ambulatory MD Sussy Johnson Work Phone: [facility] Work Phone: Start: 05-15-2024 End: 05-15-2024 Encounter for general adult medical examination without abnormal findings MD Sussy Johnson Work Phone: [facility] Start: 05-15-2024 End: 05-15-2024 Patient encounter procedure MD Sussy Johnson Work Phone: [facility] Physician [facility] Work Phone: Start: 05-12-2024 Patient encounter status MD Sravanthi Johnson Work Phone: [facility] Start: 02-15-2024 End: 02-15-2024 ambulatory MD Sussy Johnson Work Phone: [facility] Work Phone: Start: 02-15-2024 End: 02-15-2024 Patient encounter procedure MD Sussy Johnson Work Phone: [facility] [address] Work Phone: Start: 01-17-2024 Non-patient / Non-visit MD Tonya Johnson Work Phone: [facility] Work Phone: Start: 01-17-2024 End: 01-17-2024 ambulatory MD Sussy Johnson Work Phone: [facility] Work Phone: Start: 01-17-2024 End: 01-17-2024 Patient encounter procedure MD Sussy Johnson Work Phone: [facility] [address] Work Phone: Start: 10-29-2023 ambulatory Anitha Woods n RT(R) Radiology Comment on above: Radiology XR Start: 10-29-2023 End: 10-29-2023 Patient encounter procedure Anitha Ford RT(R) [facility] Comment on above: Primary osteoarthrit is of left knee (Primary Dx); It band syndrome, left Start: 10-29-2023 End: 10-29-2023 Subsequent hospital visit by physician Maryjo Cole 1 Work Phone: Radiology Comment on above: Primary osteoarthrit is of left knee [M17.12] Start: 08-04-2023 End: 08-04-2023 ambulatory Sussy Johnson Other [employer] Other Start: 08-04-2023 Telephone encounter Sussy Johnson [facility] Start: 07-27-2023 End: 07-27-2023 ambulatory Sussy Johnson Other [employer] Other Start: 07-27-2023 Encounter for genera l adult medical examination without abnormal findings Sussy Johnson [facility] Start: 07-27-2023 Periodic preventive med est patient 40-64yrs Sussy Johnson [facility] Start: 03-03-2023 End: 03-03-2023 Patient encounter procedure Garrison TOWNSENDC Work Phone: Orthopaedics Comment on above: Primary osteoarthrit is of left knee (Primary Dx) Start: 01-14-2023 ambulatory ANALISA HURLEYEN Facilit y:H1 Start: 12-02-2022 End: 12-03-2022 ambulatory [...] [M17.12] Start: 06-02-2022 End: 06-03-2022 ambulatory ANALISA BIENVENIDO Facility:H1 Start: 05-19-2022 Encounter for genera l adult medical examination without abnormal findings DR SUSSY JOHNSON [facility] Start: 05-18-2022 End: 05-19-[address] SUSSY JOHNSON Facility:H1 Start: 05-18-2022 End: 05-19-2022 Encounter for general adult medical examination without abnormal findings DR SUSSY JOHNSON Facility:H1 Start: 02-07-2022 End: 02-08-[address] SUSSY JOHNSON Facility:H1 Start: 12-01-2021 End: 12-01-2021 Patient encounter procedure Garrison Lee PA-C Work Phone: Orthopaedics Comment on above: Primary osteoarthrit is of left knee (Primary Dx) Start: 01-21-2021 End: 01-21-2021 Subsequent hospital visit by physician Maryjo Cole 1 Work Phone: Radiology Comment on above: Primary osteoarthrit is of left knee [M17.12] Procedures Date Procedure Procedure Detail Performing Clinician Start: 01-05-2025 Arthrocentesis aspir &/inj major jt/bursa w/o us Garrison Lee PA-C Work Phone: Start: 01-05-2025 Radex shoulder compl ete minimum 2 views Garrison Lee PA-C Work Phone: Start: 12-15-2024 Arthrocentesis aspir &/inj major jt/bursa w/o us Garrison Rosa PA-C Work Phone: Start: 07-25-2024 Arthrocentesis aspir &/inj major jt/bursa w/o us Garrison Rosa PA-C Work Phone: Start: 02-15-2024 Plain X-ray of bilat martinnancy Johnson Work Phone: Start: 10-29-2023 Radiologic exam knee complete 4/more views Garrison Rosa PA-C Work Phone: Start: 03-03-2023 Arthrocentesis aspir &/inj major jt/bursa w/o us Garrison Rosa PA-C Work Phone: Start: 06-09-2022 Radiologic exam knee complete 4/more views Garrison Rosa PA-C Work Phone: Start: 06-09-2022 Arthrocentesis aspir &/inj major jt/bursa w/o us Garrison Rosa PA-C Work Phone: Start: 12-01-2021 Arthrocentesis aspir &/inj major jt/bursa w/o us Garrison Rosa PA-C Work Phone: Start: 01-21-2021 Radiologic exam knee complete 4/more views Garrison Rosa PA-C Work Phone: Plan of Treatment Date Care Activity Detail Author Start: 2035 RSV Vaccine (1 - 1-d ose 75+ series) RSV Vaccine (1 - 1-dose 75+ series) [facility] Start: 04-30-2025 Influenza vaccination Influenz a Vaccine (Season Ended) [facility] Start: 02-21-2025 Hemolytic complement CH50 level 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 Start: 02-21-[address] [facility] Start: 02-13-2025 End: 02-13-2025 ambulatory 02/13/2025 10:45 AM EDT OT/PT/Speech Visit [facility] [address] [place] [address] Selene Mclean, PT [address] [place] [address] Primary osteoarthritis of right shoulder [M19.011] [facility] Comment on above: Primary osteoarthrit is of right shoulder [M19.011] Start: 01-17-2025 End: 01-17-2025 ambulatory 01/17/2025 4:30 PM EDT OT/PT/Speech Visit [facility] [address] [place] [address] Selene Mclean, PT [address] [place] [address] Primary osteoarthritis of right shoulder [M19.011] [facility] Comment on above: Primary osteoarthrit is of right shoulder [M19.011] Start: 01-05-2025 End: 01-05-2025 Patient encounter procedure 01/05/2025 11:00 AM EDT Office Visit Orthopaedics [address] [place] [address] Garrison Lee PA-C [address] [place] [address] Bilateral shoulder pain Orthopaedics Comment on above: Bilateral shoulder p ain Start: 04-30-2024 Covid-19 Vaccine ( season) Covid-19 Vaccine ( season) [facility] Start: 04-30-2024 Covid-19 Vaccine ( season) Covid-19 Vaccine ( season) [facility] Start: 04-30-2024 Influenza vaccination Influenza Vacc ine (#1) [facility] Start: 01-17-[address] [facility] Start: 08-30-2023 Depression Assessment Depression Ass essment [facility] Start: 04-30-2023 Influenza vaccination [facility] Start: 08-30-2022 DEPRESSION ASSESSMENT DEPRESSION ASS ESSMENT [facility] Start: 04-30-2022 Influenza vaccination C [facility] Start: 08-30-2021 DEPRESSION ASSESSMENT DEPRESSION ASS ESSMENT [facility] Start: 2020 RSV Vaccine (1 - 1-d ose 60+ series) RSV Vaccine (1 - 1-dose 60+ series) [facility] Start: 2010 Pneumococcal Vaccine : 50+ (1 of 1 - PCV) Pneumococcal Vaccine: 50+ (1 of 1 - PCV) [facility] Start: 2010 SHINGRIX VACCINE (1 of 2) SHINGRIX VACCINE (1 of 2) [facility] Start: 2005 COLOGUARD (FIT-DNA) COLOGUARD (FIT-D NA) [facility] Start: 2005 Colonoscopy COLONOSCOPY [facility] Start: 2005 COLORECTAL CANCER SCREENING COLORECTAL CANCER SCREENING [facility] Start: [address] COLONOGRAPHY [facility] Start: 2005 DIABETES SCREEN DIABETES SCREEN [facility] Start: 2005 Diabetes Screening Diabetes Screenin g [facility] Start: 2005 FECAL OCCULT BLOOD FECAL OCCULT BLOO D [facility] Start: 2005 Lipid panel Lipid Screening [facility] Start: 2005 LIPID SCREEN LIPID SCREEN [facility] Start: 2005 Screening for malign ant neoplasm of colon [facility] Start: 2005 SIGMOIDOSCOPY SIGMOIDOSCOPY [facility] Start: 2000 Mammography MAMMOGRAM [facility] Start: 2000 Screening for malign ant neoplasm of breast Mammogram Screening [facility] Start: 1990 HPV TESTING HPV TESTING [facility] Start: 1990 Screening for malign ant neoplasm of cervix HPV Testing [facility] Start: 1981 PAP TESTING PAP TESTING [facility] Start: 1981 Screening for malign ant neoplasm of cervix [facility] Start: 1979 Urine microalbumin profile [facility] Start: 1978 Anxiety Screening Anxiety Screening [facility] Start: 1978 Depression Screening Depression Scre ening [facility] Start: 1978 HEPATITIS C SCREENING HEPATITIS C [facility] Start: 1978 Hepatitis C screening Hepatitis C [facility] Start: 1978 HIV SCREENING HIV SCREENING [facility] Start: 1978 HIV screening HIV Screening [facility] Start: 1972 Adult depression screening assessment DEPRESSION SCREENING [facility] Start: 1965 COVID-19 VACCINE (1) COVID-19 VACCIN E (1) [facility] Start: 01-10-1961 COVID-19 VACCINE (#1) COVID-19 VACCI NE (#1) [facility] Chromatin Ab [Units/volume] in Serum or Plasma [facility] Complement C3 [Mass/volume] in Serum or Plasma [facility] Complement C4 [Mass/volume] in Serum or Plasma [facility] Comprehensive metabo lic 2000 panel - Serum or Plasma [facility] Histone IgG Ab [Units/volume] in Serum by Immunoassay [facility] MG Breast - bilatera l Screening [facility] Faye extractable nuclear Ab [Units/volume] in Serum [facility] Immunizations Immunization Date Immunization Notes Care Provider Fa cility 10-10-2020 zoster vaccine, live Sussy Johnson Other [facility] 07-08-2020 influenza virus vaccine, split virus (incl. purified surface antigen) Sussy Johnson Other [employer] Other 07-08-2020 zoster vaccine, live Sussy Johnson Other [facility] 07-08-2020 influenza virus vaccine, unspecified formulation Anitha Ford RT(R) [facility] Payers Date Payer Category Payer Self-pay [id number] 2015 Private Health Insurance [employer] PPO [id number] 2015-Present [phone] [address] [place] [id number] O [id number] 2015 Private Health Insurance [id number] 1960 Unknown [id number] 1960 Unknown [id number] 1960 Unknown [id number] 1960 Unknown [id number] 1960 Unknown [id number] 1959 Private Health Insurance [id number] 1959 Private Health Insurance [id number] Unknown [id number] Social History Date Type Detail [facility] Start: 1960 Sex Assigned At Not on file C [facility] Start: 12-22-2020 End: 06-09-2022 Exposure to SARS-CoV-2 (event) Not sure [facility] Start: 03-03-2023 End: 10-26-2023 Sex Assigned At [facility] Start: 03-03-2023 End: 10-26-2023 History of Social function [facility] Adult Depression Screening Assessment 3 [facility] Start: 1960 Sex Assigned At Female F [facility] Start: 05-15-2024 End: 01-05-2025 Tobacco smoking status NHIS Never smoked tobacco (finding) [facility] Start: 01-05-2025 Tobacco use and exposure Smokeless tobacco non-user [facility] Start: 01-05-2025 Alcoholic beverage intake Lifetime non-drinker (finding) [facility] Sex Female (finding) [facility] Clinical Notes 12-01-2021 to 02-13-2025 Selene Mclean, PT - 02/13/2025 11:14 AM Selene Calhoun, PT - 02/13/2025 10:36 AM Selene Calhoun, PT - 01/24/2025 5:08 PM Selene Calhoun, PT - 01/24/2025 4:22 PM EDT Note Date & Type Note Facility 02-13-2025 History of Present illness Narrative Program_ID:[id number] Access Code: [email or web address] URL: [email or web address] Date: 02-13-2025 Prepared By: Selene Mclean Program [...] weekly - 1-2 sets - 10-15 reps Episode Visit Count: 3 Therapist That Will Accept/Oversee The Plan Of Care: Selene Mclean Start of Care Date: 01/05/25 Onset Date: 08/31/22 Patient Identified by Name and Date of : Yes REHABILITATION AND SPORTS THERAPY PHYSICAL THERAPY DISCONTINUANCE OF CARE PLAN OF CARE UPDATE: Assessment: Svetlana Carver is discontinued from Physical Therapy services due to goal achievement and maximal benefit.. Patient was seen for 3 visits from Start of Care Date: 01/05/25 to 02/13/2025 and treatment included: Therapeutic exercise, Neuromuscular re-education, Manual therapy, and Self-fci management. Patient has had improvements in cervical and right shoulder ROM, strength and flexibility, ability to perform functional activities, and decreased pain since initiating physical therapy services. Goals for Episode of Care: established 01/05/25 Updated 02/13/25 [place] in home exercise program. MET Patient will [...] Time : 1118 Selene Mclean PT, DPT documented in this encounter [facility] 02-13-2025 Note HNO ID: [id number] Author: SELENE MCLEAN PT Service: ? Author Type: Physical Therapist Type: Progress Notes Filed: 02/13/2025 11:19 Note Text: Episode Visit Count: 3 Therapist That Will Accept/Oversee The Plan Of Care: Selene Mclean Start of Care Date: 01/05/25 Onset Date: 08/31/22 Patient Identified by Name and Date of : Yes REHABILITATION AND SPORTS THERAPY PHYSICAL THERAPY DISCONTINUANCE OF CARE PLAN OF CARE UPDATE: Assessment: Svetlana Carver is discontinued from Physical Therapy services due to goal achievement and maximal benefit.. Patient was seen for 3 visits from Start of Care Date: 01/05/25 to 02/13/2025 and treatment included: Therapeutic exercise, Neuromuscular re-education, Manual therapy, and Self-fci management. Patient has had improvements in cervical and right shoulder ROM, strength and flexibility, ability to perform functional activities, and decreased pain since initiating physical therapy services. Goals for Episode of Care: established 01/05/25 Updated 02/13/25 [place] in home exercise program. MET Patient will [...] L Shoulder Extension: 4+/5 L Shoulder Flexion: (more content not included)... [facility] 01-24-2025 History of Present illness Narrative Program_ID:[id number] Access Code: [email or web address] URL: [email or web address] Date: 01-24-2025 Prepared By: Selene Mclean Program [...] weekly - 1-2 sets - 10-15 reps Episode Visit Count: 2 Therapist That Will Accept/Oversee The Plan Of Care: Selene Mclean Start of Care Date: 01/05/25 Onset Date: 08/31/22 Patient Identified by Name and Date of : Yes REHABILITATION AND SPORTS THERAPY PHYSICAL THERAPY TREATMENT NOTE ASSESSMENT: Svetlana Carver tolerated the session with expected muscle [...] weak, they shake when doing the exercises. [place] her neck is extremely noisy, whenever she [...] Time : 1711 Selene Mclean PT, DPT documented in this encounter [facility] 01-24-2025 Note HNO ID: [id number] Author: SELENE MCLEAN PT Service: ? Author Type: Physical Therapist Type: Progress Notes Filed: 01/24/2025 17:24 Note Text: Episode Visit Count: 2 Therapist That Will Accept/Oversee The Plan Of Care: Selene Mclean Start of Care Date: 01/05/25 Onset Date: 08/31/22 Patient Identified by Name and Date of : Yes REHABILITATION AND SPORTS THERAPY PHYSICAL THERAPY TREATMENT NOTE ASSESSMENT: Svetlana Carver tolerated the session with expected muscle [...] weak, they shake when doing the exercises. [place] her neck is extremely noisy, whenever she [...] Time : 1711 Selene Mclean PT, DPT [facility] 01-05-2025 History of Present illness Narrative Program_ID:[id number] Access Code: [email or web address] URL: [email or web address] Date: 01-05-2025 Prepared By: Selene Mclean Program [...] weekly - 1 sets - 10 reps Images from the original note were not included. Episode Visit Count: 1 Therapist That Will Accept/Oversee The Plan Of Care: Selene Mclean Start of Care Date: 01/05/25 Onset Date: 08/31/22 Patient Identified by Name and Date of : Yes REHABILITATION AND SPORTS THERAPY PHYSICAL THERAPY EVALUATION PLAN OF CARE: Assessment: Svetlana Carver presents with chief complaint of right shoulder pain that interferes with walking, sitting, heavy exertion, lifting, physical activities, recreational activities, sleeping . The patient presents with impairments in flexibility, overall function, range of motion, strength, symptom management, and tissue tenderness. PROMIS (Patient-Reported Outcomes Measurement Information System) scores were [...] Goals for Episode of Care: established 01/05/25 [place] in home exercise program. Patient will decrease [...] Planned: 4 Planned Treatment Interventions: Therapeutic exercise (37944), Neuromuscular re-education (77760), Manual therapy (99018), Therapeutic activities (31511), Self-fci management (13840), Gait Training (03961), Patient/Family/Caregiver Education PLAN FOR NEXT VISIT: Review [...] fine up until recently. 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 Patient education as noted. Self-Correction Management: 1: Patient educated on impairments noted [...] Time : 1316 Selene Mclean PT, DPT documented in this encounter [facility] 01-05-2025 Note HNO ID: [id number] Author: MARCIO, SELENE, PT Service: ? Author Type: Physical Therapist Type: Progress Notes Filed: 01/05/2025 13:26 Note Text: Episode Visit Count: 1 Therapist That Will Accept/Oversee The Plan Of Care: Selene Mclean Start of Care Date: 01/05/25 Onset Date: 08/31/22 Patient Identified by Name and Date of : Yes REHABILITATION AND SPORTS THERAPY PHYSICAL THERAPY EVALUATION PLAN OF CARE: Assessment: Svetlana Carver presents with chief complaint of right [...] Goals for Episode of Care: established 01/05/25 [place] in home exercise program. Patient will decrease [...] Planned: 4 Planned Treatment Interventions: Therapeutic exercise (84557), Neuromuscular re-education (79205), Manual therapy (26875), Therapeutic activities (27503), Self-fci management (16723), Gait Training (31869), Patient/Family/Caregiver Education PLAN FOR NEXT VISIT: Review [...] fine up until recently. 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 [facility] 01-05-2025 Note HNO ID: [id number] Author: GARRISON LEE PA-C Service: ? Author Type: Physician Game Programer Type: Progress Notes Filed: 01/05/2025 11:54 Note Text: This document has been created with the use of voice recognition technology, including [employer] Scribe technology. It may contain inaccuracies: misspellings, inaccurate syntax or word sense that escaped review. CHIEF COMPLAINT: Svetlana Carver is a 64 year old female who presents today for new evaluation of bilateral shoulder and neck pain. HISTORY OF PRESENT ILLNESS: PAIN EVALUATION 01/04/2025 1553 01/05/2025 1058 Pain Level: -- 5 Pain Location: Shoulder-Right Other: See Comment Bilateral Shoulders R>L Description: Aching;Dull;Spasm;Tightness Dull;Aching Duration Amount of Time: -- 3 Duration Units: Hours Years Frequency: Intermittent Intermittent Intervention/Comfort measure: Medication;Reposition;Relaxation; Distractions;Massage;Other: See comment Reposition;Relaxation;Positioning ;Medication;Heat Comments: Stretching Aleve, Tylenol HISTORY: Svetlana is a 64-year-old female presenting with chronic shoulder pain. Svetlana reports bilateral shoulder pain that has been gradually worsening over the past 3 years. The pain is described as intense muscle knots located primarily in the trapezius region and occasionally radiating to the neck. She has attempted to alleviate the pain with stretching and heat application without significant relief. She has not engaged in gym activities for the past month. Svetlana denies pain in the shoulder joint area [...] She recently completed a half marathon in [facility], without any issues related to her shoulder [...] these instructions. Informed Consent Consent Obtained: Written [place] Protocol A moment to CARE was completed. SIGN IN Personnel directly involved with the procedure wore the appropriate PPE. Special Equipment: Yes Patient/Surrogate Stated/Verified: Patient name, Date of , Relevant allergies and Intended proce (more content not included)... [facility] 01-05-2025 History of Present illness Narrative Associated Order(s): Large Joint Arthro/Inj: R subacromial bursa Post-Procedure Diagnose(s): Primary osteoarthritis of right shoulder; Tendinopathy of right rotator cuff Images from the original note were not included. This document has been created with the use of voice recognition technology, including [employer] Scribe technology. It may contain inaccuracies: misspellings, inaccurate syntax or word sense that escaped review. CHIEF COMPLAINT: Svetlana Carver is a 64 year old female who presents today for new evaluation of bilateral shoulder and neck pain. HISTORY OF PRESENT ILLNESS: PAIN EVALUATION 01/04/2025 1553 01/05/2025 1058 Pain Level: -- 5 Pain Location: Shoulder-Right Other: See Comment Bilateral Shoulders R>L Description: Aching;Dull;Spasm;Tightness Dull;Aching Duration Amount of Time: -- 3 Duration Units: Hours Years Frequency: Intermittent Intermittent Intervention/Comfort measure: Medication;Reposition;Relaxation; Distractions;Massage;Other: See comment Reposition;Relaxation;Positioning ;Medication;Heat Comments: Stretching Aleve, Tylenol HISTORY: Svetlana is a 64-year-old female presenting with chronic shoulder pain. Svetlana reports bilateral shoulder pain that has been gradually worsening over the past 3 years. The pain is described as intense muscle knots located primarily in the trapezius region and occasionally radiating to the neck. She has attempted to alleviate the pain with stretching and heat application without significant relief. She has not engaged in gym activities for the past month. Svetlana denies pain in the shoulder joint area [...] She recently completed a half marathon in [facility], without any issues related to her shoulder [...] these instructions. Informed Consent Consent Obtained: Written [place] Protocol A moment to CARE was completed. [...] examination. - start PT Garrison Lee PA-C documented in this encounter [facility] 01-05-2025 Note HNO ID: [id number] Author: ANITHA FORD RT(R) Service: ? Author Type: Technologist Type: Progress Notes Filed: 01/05/2025 10:54 Note Text: Radiology Service Progress Note PATIENT NAME: Svetlana Carver DATE OF SERVICE: January 05, 2025 [...] PATIENT PRESENTS WITH AN IMPLANTABLE OR ATTACHED SENIOR HR GENERALIST: No RADIOLOGY DEPARTMENT: General X-ray: Exam(s) Completed: Upper Extremity X-Ray(s): Shoulder, AP / TRUE AP / AXILLARY / SUPRA OUTLET bilateral PERIPHERAL IV DATA: Not applicable SIGNED BY: RT Angela(R) January 05, 2025 10:53 AM [facility] 01-05-2025 History of Present illness Narrative Radiology Service Progress Note PATIENT NAME: Svetlana Carver DATE OF SERVICE: January 05, 2025 [...] PATIENT PRESENTS WITH AN IMPLANTABLE OR ATTACHED SENIOR HR GENERALIST: No RADIOLOGY DEPARTMENT: General X-ray: Exam(s) Completed: Upper Extremity X-Ray(s): Shoulder, AP / TRUE AP / AXILLARY / SUPRA OUTLET bilateral PERIPHERAL IV DATA: Not applicable SIGNED BY: RT Angela(R) January 05, 2025 10:53 AM documented in this encounter [facility] 12-15-2024 Note HNO ID: [id number] Author: GARRISON LEE PA-C Service: ? Author Type: Physician Game Programer Type: Progress Notes Filed: 12/15/2024 10:38 Note Text: This document has been created with the use of voice recognition technology, including [employer] Scribe technology. It may contain inaccuracies: misspellings, inaccurate syntax or word sense that escaped review. CHIEF COMPLAINT: Svetlana Carver is a 64 year old female who presents today for follow up of both knees. HISTORY OF PRESENT ILLNESS: PAIN EVALUATION 12/14/2024 2226 Pain Level: 7 Pain Location: Knee-Left Description: Aching;Dull Duration Units: Months Frequency: Intermittent Intervention/Comfort measure: Medication;Cold;Distractions;Repo sition;Relaxation;Positioning HISTORY: Svetlana is a 64-year-old female presenting for evaluation of recurrent left knee pain. Svetlana reports recurrent left knee pain, for which she received a cortisone injection in June. She experienced temporary relief but notes the pain has returned. She describes the pain as part of a rotating pattern of multiple pains, including significant shoulder and back pain. She is seeking treatment to prepare for an upcoming half marathon in [facility] on the or , with travel scheduled [...] these instructions. Informed Consent Consent Obtained: Written [place] Protocol A moment to CARE was completed. [...] advised to consider when pain significantly affects activiti (more content not included)... [facility] 12-15-2024 History of Present illness Narrative Associated Order(s): Large Joint Arthro/Inj: L knee joint Post-Procedure Diagnose(s): Primary osteoarthritis of left knee Images from the original note were not included. This document has been created with the use of voice recognition technology, including [employer] Scribe technology. It may contain inaccuracies: misspellings, inaccurate syntax or word sense that escaped review. CHIEF COMPLAINT: Svetlana Carver is a 64 year old female who presents today for follow up of both knees. HISTORY OF PRESENT ILLNESS: PAIN EVALUATION 12/14/2024 2226 Pain Level: 7 Pain Location: Knee-Left Description: Aching;Dull Duration Units: Months Frequency: Intermittent Intervention/Comfort measure: Medication;Cold;Distractions;Repo sition;Relaxation;Positioning HISTORY: Svetlana is a 64-year-old female presenting for evaluation of recurrent left knee pain. Svetlana reports recurrent left knee pain, for which she received a cortisone injection in June. She experienced temporary relief but notes the pain has returned. She describes the pain as part of a rotating pattern of multiple pains, including significant shoulder and back pain. She is seeking treatment to prepare for an upcoming half marathon in [facility] on the or , with travel scheduled [...] these instructions. Informed Consent Consent Obtained: Written [place] Protocol A moment to CARE was completed. [...] - Follow-up as needed. Garrison Lee PA-C documented in this encounter [facility] 07-25-2024 Note HNO ID: [id number] Author: GARRISON LEE PA-C Service: ? Author Type: Physician Game Programer Type: Progress Notes Filed: 07/25/2024 14:21 Note Text: This document has been created with the use of voice recognition technology. It may contain inaccuracies: misspellings, inaccurate syntax or word sense that escaped review. CHIEF COMPLAINT: Svetlana Carver is a 64 year old female [...] recent injury. Pain increases with stairs. HISTORY: Svetlana Carver is here for follow up of [...] knee joints Informed Consent Consent Obtained: Written [place] Protocol A moment to CARE was completed. [...] ready to s (more content not included)... [facility] 07-25-2024 History of Present illness Narrative Associated Order(s): Large Joint Arthro/Inj: bilateral knee joints Post-Procedure Diagnose(s): Primary osteoarthritis of right knee; Primary osteoarthritis of left knee Images from the original note were not included. This document has been created with the use of voice recognition technology. It may contain inaccuracies: misspellings, inaccurate syntax or word sense that escaped review. CHIEF COMPLAINT: Svetlana Carver is a 64 year old female [...] recent injury. Pain increases with stairs. HISTORY: Svetlana Carver is here for follow up of [...] knee joints Informed Consent Consent Obtained: Written [place] Protocol A moment to CARE was completed. [...] Garrison Lee PA-C documented in this encounter [facility] 10-29-2023 History of Present illness Narrative Images from the original note were not included. This document has been created with the use of voice recognition technology. It may contain inaccuracies: misspellings, inaccurate syntax or word sense that escaped review. CHIEF COMPLAINT: Svetlana Carver is a 63 year old female [...] 13:50/mile pace. Pain started at about the correction point and increased until I was finished. The knee was difficult to bend. Went home and iced it and took alleve. This helped -- HISTORY: Svetlana Carver is here for follow up of complaints of arthritis flare of the left knee. She states most of her pain is posterior. She has severe medial compartment degenerative change. She has a race coming up soon in [facility] where she will be power [...] Garrison Lee PA-C documented in this encounter [facility] 10-29-2023 History of Present illness Narrative Radiology Service Progress Note PATIENT NAME: Svetlana Carver DATE OF SERVICE: October 29, 2023 [...] PATIENT PRESENTS WITH AN IMPLANTABLE OR ATTACHED SENIOR HR GENERALIST: No RADIOLOGY DEPARTMENT: General X-ray: Exam(s) Completed: Lower Extremity X-Ray(s): Knee, AP / Lat / Tunne / Merchant Left and Wt. Bearing PERIPHERAL IV DATA: Not applicable SIGNED BY: RT Angela(R) October 29, 2023 11:34 AM documented in this encounter [facility] 07-27-2023 Evaluation note Encounter Date Diagnosis [...] Order for PT handwritten [employer] Other 07-05-2023 History of Present illness Narrative* [...] word sense that escaped review. CHIEF COMPLAINT: Svetlana Carver is a 62 year old female who presents today for follow up of left knee. HISTORY OF PRESENT ILLNESS: PAIN EVALUATION 03/01/2023 1105 Pain Level: 5 Pain Location: Knee-Left Description: Aching;Stiffness Frequency: Intermittent Intervention/Comfort measure: Medication;Reposition;Cold HISTORY: Svetlana Carver is here for follow up of complaints of recurrent left knee pain with additional symptoms of posterior knee pain. She states she has also been dealing with plantar fasciitis of the right foot and doing physical therapy for that. She remains very active and does long distance [place] races. These activities seem to flareup the [...] knee joint Informed Consent Consent Obtained: Written [place] Protocol A moment to CARE was completed. [...] dictate. Garrison Lee PA-C [facility] of Present illness Narrative* Garrison Lee PA-C - 06/09/2022 11:50 AM EDTAssociated Order(s): Large Joint Arthro/Inj: L knee joint Post-Procedure Diagnose(s): Primary osteoarthritis of left knee This document has been created with the use of voice recognition technology. It may contain inaccuracies: misspellings, inaccurate syntax or word sense that escaped review. CHIEF COMPLAINT: Svetlana Carver is a 61 year old female who presents today for follow up of left knee pain. HISTORY OF PRESENT ILLNESS: PAIN EVALUATION 06/09/2022 1137 Pain Level: 7 Pain Location: Knee-Left Description: Dull;Aching Duration Amount of Time: 2 Duration Units: Weeks Frequency: Continuous Intervention/Comfort measure: Medication;Cold HISTORY: Svetlana Carver is here for follow up of [...] knee joint Informed Consent Consent Obtained: Written [place] Protocol A moment to CARE was completed. [...] needed Garrison Lee PA-C [facility] History of Present illness Narrative* Kriss Cornelius RT(R) - 06/09/2022 11:20 AM EDT pain [facility] NotePROCEDURE: XR ANKLE RT MIN 3 [...] authenticated by: HOMERO DONALDSON Date: 2022-06-02 12[id number] NotePROCEDURE: XR ANKLE RT MIN 3 VIEWS, [...] authenticated by: HOMERO DONALDSON Date: 2022-06-02 12[id number] History of Present illness Narrative* Garrison Lee PA-C - 12/01/2021 12:03 PM EDT Associated Order(s): Large Joint Arthro/Inj: L knee joint Post-Procedure Diagnose(s): Primary osteoarthritis of left knee This document has been created with the use of voice recognition technology. It may contain inaccuracies: misspellings, inaccurate syntax or word sense that escaped review. CHIEF COMPLAINT: Svetlana Carver is a 61 year old female who presents today for follow up of left knee pain. HISTORY OF PRESENT ILLNESS: PAIN EVALUATION 12/01/2021 0927 Pain Level: 8 Pain Location: Knee-Left Description: Stiffness;Aching;Sore Duration Amount of Time: 4 Duration Units: Months Frequency: Intermittent Intervention/Comfort measure: Medication HISTORY: Svetlana Carver is here for follow up of [...] knee joint Informed Consent Consent Obtained: Written [place] Protocol A moment to CARE was completed. [...] needed. Garrison Lee PA-C [facility] Diagnosis Primary osteoarthritis of left knee- Primary Primary localized osteoarthrosis, lower leg documented in this encounter [facility] note* Diagnosis Primary osteoarthritis of left knee- Primary Primary localized osteoarthrosis, lower leg documented in this encounter [facility] note* Diagnosis Primary osteoarthritis of left knee- Primary Primary localized osteoarthrosis, lower leg documented [facility] encounter [facility] noteNo InformationNort [facility] Other Evaluation note* Diagnosis Primary osteoarthritis of left knee- Primary Primary localized osteoarthrosis, lower leg It band syndrome, left documented in this encounter [facility] noteNo assessment information [facility] Work Phone: Evaluation note* Diagnosis Primary osteoarthritis of left knee Primary localized osteoarthrosis, lower leg documented in this encounter [facility] note* Diagnosis Onset Date Resolution Status GERD (gastroesophageal reflux disease) acute Hypercholesterolemia acute Osteoporosis acute Screening for colon cancer a cute Screening mammogram for breast cancer acute Wellness examination acute [facility] Work Phone: Evaluation note* Diagnosis Primary osteoarthritis of left knee Primary localized osteoarthrosis, lower leg documented in this encounter [facility] note* Diagnosis Primary osteoarthritis of left knee Primary localized osteoarthrosis, lower leg documented in this encounter [facility] note* Diagnosis Primary osteoarthritis of left knee- Primary Primary localized osteoarthrosis, lower leg Primary osteoarthritis of right knee Primary localized osteoarthrosis, lower leg documented in this encounter [facility] note* Diagnosis Primary osteoarthritis of left knee- Primary Primary localized osteoarthrosis, lower leg Primary osteoarthritis of right knee Primary localized osteoarthrosis, lower leg [facility]* Diagnosis Primary osteoarthritis of right shoulder- Primary Primary localized osteoarthrosis, shoulder region Tendinopathy of right rotator cuff Cervicalgia Impingement syndrome of left shoulder Other affections of shoulder region, not elsewhere classified Pain of both shoulder joints documented in this encounter [facility] note* Diagnosis Pain in joint of right shoulder- Primary Pain in joint, shoulder region Primary osteoarthritis of right shoulder Primary localized osteoarthrosis, shoulder region Tendinopathy of right rotator cuff Cervicalgia Impingement syndrome of left shoulder Other affections of shoulder region, not elsewhere classified documented [facility]* Diagnosis Pain of both shoulder joints documented in this encounter [facility] note* Diagnosis Pain in joint of right shoulder- Primary Pain in joint, shoulder region documented in this encounter [facility] note* Diagnosis Pain in joint of right shoulder- Primary Pain in joint, shoulder region documented in this encounter [facility] general Narrative - Reported* Type Description Date Medical History GERD without esophagitis Medical History Onychomycosis Medical History Low back pain with radiation Medical History Muscular pain Medical History Hyperlipidemia, unspecified Medical History Osteoporosis Medical History Plantar Fasciitis Surgical History Rhinoplasty Surgical History DEXA 10/16 hip - 2.8 Surgical History Tonsillectomy Hospitalization History SEE SURGICAL HX [place] [facility] Other Reason for referral (narrative)* Diagnostic Procedure Only (Routine) - Closed Specialty Diagnoses / Procedures Referred By Becca t Referred To Contact XR IMAGING Diagnoses Primary osteoarthritis of left knee Procedures XR KNEE GENERAL 4V AP BOTH/PA BOTH/LAT/MERC LEFT RADIOLOGIC EXAM KNEE COMPLETE 4/MORE VIEWS Garrison Lee PA-C [address] [place] [address] Xr Imaging Referral ID Status Reason Start Date Expiration Date V isits Requested Visits Authorized [id number] Closed Auto-Generate d Referral 06/05/2022 07/05/2023 1 1 [facility] for referral (narrative)* Diagnostic Procedure Only (Routine) - Closed Specialty Diagnoses / Procedures Referred By Contac t Referred To Contact XR IMAGING Diagnoses Primary osteoarthritis of left knee Procedures XR KNEE GENERAL 4V AP BOTH/PA BOTH/LAT/MERC LEFT RADIOLOGIC EXAM KNEE COMPLETE 4/MORE VIEWS Garrison Lee PA-C [address] [place] [place] [address] [place] [address] Referral ID Status Reason Start Date Expiration Date V isits Requested Visits Authorized [id number] Closed Auto-Generate d Referral 10/26/2023 11/24/2024 1 1 [facility] for referral (narrative)* Diagnostic Procedure Only (Routine) - Closed Specialty Diagnoses / Procedures Referred By Contac t Referred To Contact XR IMAGING Diagnoses Primary osteoarthritis of left knee Procedures XR KNEE GENERAL 4V AP BOTH/PA BOTH/LAT/MERC LEFT RADIOLOGIC EXAM KNEE COMPLETE 4/MORE VIEWS Garrison Lee PA-C [address] [place] [place] [address] [place] [address] Referral ID Status Reason Start Date Expiration Date V isits Requested Visits Authorized [id number] Closed Auto-Generate d Referral 10/26/2023 11/24/2024 1 1 [facility] for referral (narrative)* Diagnostic Procedure Only (Routine) - Closed Specialty Diagnoses / Procedures Referred By Contac t Referred To Contact XR IMAGING Diagnoses Primary osteoarthritis of left knee Procedures XR KNEE GENERAL 4V AP BOTH/PA BOTH/LAT/MERC LEFT RADIOLOGIC EXAM KNEE COMPLETE 4/MORE VIEWS Garrison Lee PA-C [address] [place] [address] [place] [address] Referral ID Status Reason Start Date Expiration Date V isits Requested Visits Authorized [id number] Closed Auto-Generate d Referral 06/05/2022 07/05/2023 1 1 [facility] for referral (narrative)No reason for referral information [facility]: [facility] for visit Narrative* Diagnostic Procedure Only (Routine) - Closed Specialty Diagnoses / Procedures Referred By Contac t Referred To Contact XR IMAGING Diagnoses Primary osteoarthritis of left knee Procedures XR KNEE GENERAL 4V AP BOTH/PA BOTH/LAT/MERC LEFT RADIOLOGIC EXAM KNEE COMPLETE 4/MORE VIEWS Garrison Lee PA-C [address] [place] [address] [place] [address] Referral ID Status Reason Start Date Expiration Date V isits Requested Visits Authorized [id number] Closed Auto-Generate d Referral 10/26/2023 11/24/2024 1 1 [facility] for visit Narrative* Diagnostic Procedure Only (Routine) - Closed Specialty Diagnoses / Procedures Referred By Contac t Referred To Contact XR IMAGING Diagnoses Pain of both shoulder joints Procedures XR SHOULDER ORTHO 4V AP/TRUE AP/LAT/OUTLET LEFT RADEX SHOULDER COMPLETE MINIMUM 2 VIEWS Garrison Lee PA-C [address] [facility] [address] [place] [address] Phone: tel: fax: [place] [address] Referral ID Status Reason Start Date Expiration Date V isits Requested Visits Authorized [id number] Closed Auto-Generate d Referral 12/28/2024 01/27/2026 1 1 [facility] Medications Administered Section Inactive Administered Medications [...] Screening mammogram for breast cancer Wellness examination Chief Complaint Admit Date R76.0 M81.0 E55.9 Z79.899 February 21 1:30pm back pain May 04, 2025 9:23am Additional Source Comments Source Comments (unrecognize d section and content) In the event this informatio n is protected by the Federal Confidentiality of Alcohol and Drug Abuse Patient Records regulations: The Federal rules restrict any use of the information to criminally investigate or prosecute any alcohol or drug abuse patient.[facility] HospitalIn the event this information is protected by the Federal Confidentiality of Alcohol and Drug Abuse Patient Records regulations: The Federal rules restrict any use of the information to criminally investigate or prosecute any alcohol or drug abuse patient.[facility] HospitalIn the event this information is protected by the Federal Confidentiality of Alcohol and Drug Abuse Patient Records regulations: The Federal rules restrict any use of the information to criminally investigate or prosecute any alcohol or drug abuse patient.[facility] HospitalIn the event this information is protected by the Federal Confidentiality of Alcohol and Drug Abuse Patient Records regulations: The Federal rules restrict any use of the information to criminally investigate or prosecute any alcohol or drug abuse patient.[facility] HospitalIn the event this information is protected by the Federal Confidentiality of Alcohol and Drug Abuse Patient Records regulations: The Federal rules restrict any use of the information to criminally investigate or prosecute any alcohol or drug abuse patient.[facility] HospitalIn the event this information is protected by the Federal Confidentiality of Alcohol and Drug Abuse Patient Records regulations: The Federal rules restrict any use of the information to criminally investigate or prosecute any alcohol or drug abuse patient.[facility] HospitalIn the event this information is protected by the Federal Confidentiality of Alcohol and Drug Abuse Patient Records regulations: The Federal rules restrict any use of the information to criminally investigate or prosecute any alcohol or drug abuse patient.[facility] HospitalIn the event this information is protected by the Federal Confidentiality of Alcohol and Drug Abuse Patient Records regulations: The Federal rules restrict any use of the information to criminally investigate or prosecute any alcohol or drug abuse patient.[facility] HospitalIn the event this information is protected by the Federal Confidentiality of Alcohol and Drug Abuse Patient Records regulations: The Federal rules restrict any use of the information to criminally investigate or prosecute any alcohol or drug abuse patient.[facility] HospitalIn the event this information is protected by the Federal Confidentiality of Alcohol and Drug Abuse Patient Records regulations: The Federal rules restrict any use of the information to criminally investigate or prosecute any alcohol or drug abuse patient.[facility] HospitalIn the event this information is protected by the Federal Confidentiality of Alcohol and Drug Abuse Patient Records regulations: The Federal rules restrict any use of the information to criminally investigate or prosecute any alcohol or drug abuse patient.[facility] HospitalIn the event this information is protected by the Federal Confidentiality of Alcohol and Drug Abuse Patient Records regulations: The Federal rules restrict any use of the information to criminally investigate or prosecute any alcohol or drug abuse patient.[facility] HospitalIn the event this information is protected by the Federal Confidentiality of Alcohol and Drug Abuse Patient Records regulations: The Federal rules restrict any use of the information to criminally investigate or prosecute any alcohol or drug abuse patient.[facility] HospitalIn the event this information is protected by the Federal Confidentiality of Alcohol and Drug Abuse Patient Records regulations: The Federal rules restrict any use of the information to criminally investigate or prosecute any alcohol or drug abuse patient.[facility] HospitalIn the event this information is protected by the Federal Confidentiality of Alcohol and Drug Abuse Patient Records regulations: The Federal rules restrict any use of the information to criminally investigate or prosecute any alcohol or drug abuse patient.[facility] HospitalIn the event this information is protected by the Federal Confidentiality of Alcohol and Drug Abuse Patient Records regulations: The Federal rules restrict any use of the information to criminally investigate or prosecute any alcohol or drug abuse patient.[facility] Reason for Visit (unrecogniz ed section and content) Reason Comments PT Discharge Specialty Diagnoses / Procedures Referred By Becca colvin Referred To Contact [facility] Diagnoses Primary osteoarthritis of right shoulder Tendinopathy of right rotator cuff Cervicalgia Impingement syndrome of left shoulder Procedures CONSULT TO PHYSICAL THERAPY PHYSICAL THERAPY EVALUATION HIGH COMPLEX 45 MINS Garrison Lee PA-C [address] [place] [address] Phone: tel: fax: [facility] [address] [place] [address] Referral ID Status Reason Start Date Expiration Date Visits Requested Visits Authorized [id number] Authorized Auto-Generat ed Referral 08/30/2024 08/29/2025 99 99 Reason Comments Established Patient Injections Swelling Reason Comments Established Patient Reason Comments Injections Reason Comments Radiology XR Reason Comments Follow Up Reason Comments Radiology XR Specialty Diagnoses / Procedures Referred By Becca colvin Referred To Contact XR IMAGING Diagnoses Primary osteoarthritis of left knee Procedures XR KNEE GENERAL 4V AP BOTH/PA BOTH/LAT/MERC LEFT RADIOLOGIC EXAM KNEE COMPLETE 4/MORE VIEWS Garrison Lee PA-C [address] [place] [address] [place] [address] Referral ID Status Reason Start Date Expiration Date V isits Requested Visits Authorized [id number] Closed Auto-Generate d Referral 06/05/2022 07/05/2023 1 1 Reason Comments Established Patient Follow Up Knee Pain Reason Comments Follow Up Reason Comments Established Patient Reason Comments PT Eval Patient Education Specialty Diagnoses / Procedures Referred By Contac t Referred To Contact [facility] Diagnoses Primary osteoarthritis of right shoulder Tendinopathy of right rotator cuff Cervicalgia Impingement syndrome of left shoulder Procedures CONSULT TO PHYSICAL THERAPY PHYSICAL THERAPY EVALUATION HIGH COMPLEX 45 MINS Garrison Lee PA-C [address] [place] [address] Phone: tel: fax: [facility] [address] [place] [address] Referral ID Status Reason Start Date Expiration Date Visits Requested Visits Authorized [id number] Authorized Auto-Generat ed Referral 08/30/2024 08/29/2025 99 99 Reason Comments Physical Therapy INFORMATION SOURCE (unrecogn ized section and content) DATE CREATED AUTHOR 01/09/2023 [facility] DATE CREATED AUTHOR AUTHOR'S ORGANIZ ATION 02/15/2025 [facility] DATE CREATED AUTHOR AUTHOR'S ORGANIZ ATION 03/11/2025 [facility] Care Teams (unrecognized sec tion and content) Team Status: Active Member Role Status Dates Sussy Johnson MD Primary Care Provider Active Team Status: Inactive Member Role Status Dates Sussy Johnson MD Primary Care Provider Active Start: January 17, 2024 End: January 17, 2024 Vlad Gallagher MD Attending Provider Active St art: January 17, 2024 End: January 17, 2024 Team Status: Active Member Role Status Dates Sussy Johnson MD Primary Care Provider Active Start: January 17, 2024 WOOD Foley Attending Provider Active Start : January 17, 2024 Team Status: Inactive Member Role Status Dates Sussy Johnson MD Primary Care Provider Active Start: February 15, 2024 End: February 15, 2024 Vlad Gallagher MD Attending Provider Active St art: February 15, 2024 End: February 15, 2024 Team Status: Inactive Member Role Status Dates Sussy Johnson MD Primary Care Provider Active Start: May 15, 2024 End: May 15, 2024 Piyush Bui DO Attending Provider Active Sta rt: May 15, 2024 End: May 15, 2024 Team Status: Inactive Member Role Status Dates Sussy Johnson MD Primary Care Provider Active Start: February 21, 2025 End: February 21, 2025 KATHY Carvajal Attending Provider Active Start: February 21, 2025 End: February 21, 2025 Team Status: Active Member Role Status Dates Piyush Bui DO Primary Care Provider Active Team Status: Inactive Member Role Status Dates Piyush Bui DO Primary Care Provider Active Start: May 04, 2025 End: May 04, 2025 Piyush Bui DO Attending Provider Active Sta rt: May 04, 2025 End: May 04, 2025 Goals (unrecognized section and content) Goals may [...] BE BASED ON THE PRIMARY CLINICAL RECORDS. [facility] [employer] provides no warranty or guarantee of the accuracy or completeness of information in this document.
[2025-05-12 10:43] LABS: Hematocrit 42.1 % (36.0-48.0); Hemoglobin 13.9 g/dL (12.0-16.0); Immature Granulocytes Abs Auto 0.05 10^3/uL (0.00-0.03); Immature Granulocytes Pct Auto 0.4 % (0.0-0.5); Lymphocytes Absolute Auto 2.9 10^3/uL (1.2-3.8); Mean Corpuscular HGB Conc 33.0 g/dL (29.9-35.2); Mean Corpuscular Hemoglobin 31.6 pg (26.7-34.0); Mean Corpuscular Volume 95.7 fL (81.0-99.0); Platelet Count 274 10^3/uL (150-450); Red Blood Count 4.40 10^6/uL (4.20-5.40); White Blood Count 11.8 10^3/uL (4.0-11.0)
[2025-05-12 11:13] LABS: Alanine Aminotransferase 31 U/L (14-59); Albumin Globulin Ratio 0.8; Albumin Level 3.5 g/dL (3.4-5.0); Alkaline Phosphatase 59 U/L (46-116); Anion Gap 11.5; Aspartate Amino Transferase 24 U/L (15-37); Blood Urea Nitrogen 18.0 mg/dL (7.0-18.0); Calcium 9.1 mg/dL (8.5-10.1); Carbon Dioxide 28.6 mmol/L (21.0-32.0); Chloride 103 mmol/L (98-107); Cholesterol 187 mg/dL (<=200); Estimated GFR (African America >60 (>=60 mL/min/1.73m^2); Estimated GFR (Non-African Ame >60 (>=60 mL/min/1.73m^2); Globulin 4.5 g/dL; Glucose 84 mg/dL (74-106); HDL Cholesterol 70 mg/dL (40-60); Potassium 4.1 mmol/L (3.5-5.1); Sodium 139 mmol/L (136-145); Thyroid Stimulating Hormone 1.935 uIU/mL (0.358-3.740); Total Protein 8.0 g/dL (6.4-8.2); Triglycerides 98 mg/dL (<=150); VLDL CHOLESTEROL 19.6 mg/dL
== END 2025-05-12 10:28 | disposition home or self-care (01) ==
PROVIDERS: PCP Internal Medicine; Visit Provider Internal Medicine
DX: Z00.00 Encounter for general adult medical examination without abnormal findings (principal)
CPT/HCPCS: 36415; 80053; 80061; 82043; 82570; 84443; 85025

== ENCOUNTER 2025-05-31 09:34 | Outpatient (OUT) | payer OTHER, SELFPAY ==
--- OUTSIDE RECORDS SUMMARY | 2025-02-21 13:30 | XMS_ITS ---
Author Name Auto Generated Organization OHIP Care Team Providers [facility] Landscape Architect Name Role Phone GARRISON LEE Referring Unavailable ROSA, GARRISON Attending Unavailable ROSA, GARRISON Referring Unavailable ROSA, GARRISON Attending Unavailable ROSA, GARRISON Attending Unavailable ROSA, GARRISON Referring Unavailable ROSA, GARRISON Referring Unavailable Tiffanie Duckworth Primary Care Unavailable Martine Cade Attending Unavailable Martine Cade Admitting Unavailable PROBLEMS DATE TYPE CONDITION / CODE ATTENDING STATUS [facility] 02/21/2025 Unknown Raised antibody titer / R76.0(ICD-10) Martine Cade [facility] 01/05/2025 Active Pain in joint of right shoulder / M25.511(ICD-10) NA Active [facility] 01/05/2025 Active Primary osteoart hritis of right shoulder / M19.011(ICD-10) GARRISON LEE Active [facility] 01/05/2025 Active Tendinopathy of right rotator cuff / M67.911(ICD-10) GARRISON LEE Active [facility] 01/05/2025 Active Cervicalgia / M54.2(ICD-10) GARRISON LEE Active [facility] 01/05/2025 Active Impingement synd crissy of left shoulder / M75.42(ICD-10) GARRISON LEE Active [facility] 01/05/2025 Active Pain of both renetta ulder joints / M25.511(ICD-10) NA Active [facility] 01/05/2025 Active Pain of both renetta ulder joints / M25.512(ICD-10) NA Active [facility] 12/15/2024 Active Primary osteoart hritis of left knee / M17.12(ICD-10) GARRISON LEE Active [facility] 12/15/2024 Active Primary osteoart hritis of right knee / M17.11(ICD-10) GARRISON LEE Active [facility] PROCEDURES No Procedure Records Found RESULTS DIPSTICK AND MICROSCOPIC Collected: 1:31 PM Status: F Source: [facility] Order Comment: Name Collecti on Type:: Clean-Voided Midstream TYPE CODE TESTS RESULT OUT OF RANGE REFERENCE UNITS LAB UCOL Color,Urine Yellow Yellow LAB UAPP Appearance,Ur ine Clear Clear LAB USG Specificy [place],Urine 1.025 Normal 1.001-1.030 LAB UPH pH,Urine 5.5 Normal 5.0-9.0 LAB ULE Leukocyte Esterase,Urin e Negative Negative LAB UNIT Nitrite,Urine Negative Negative LAB UPRO Protein,Urine Negative Negative mg/dL LAB UGL Glucose,Urine (UA) Normal Normal mg/dL LAB UKET Ketones,Urine Negative Negative LAB UURO Urobilinogen, Urine Normal Normal mg/dL LAB UBIL Bilirubin,Uri ne Negative Negative LAB UBLD Occult Blood,Urine Negative Negative LAB URBC RBC,Urine 1-2 0-4 [HPF] LAB UWBC WBC,Urine 1-2 0-4 [HPF] LAB UBACT Bacteria,Urin e None Seen None Seen [HPF] LAB UHYALC Hyaline Casts,Urine None 0-8 [LPF] LAB MUCUS Mucus,Urine Rare [LPF] Result Comment: PERFORMED BY : [place] [address] PATHOLOGIST CAMPUS SUPERVISOR MERLINE WISE M.D. Performed By: #### CBC, ESR, ADDONUAPLUS, CMP, PHOS, MG #### [address] #### FAYE, ANTIR, C3, CH50, CHROMATIN, ADNA, C4, HISAB #### [facility] , COMPREHENSIVE METABOLIC PANEL Collected: 02/21/2025 1 :31 PM Status: F Source: [facility] TYPE CODE TESTS RESULT OUT OF RANGE REFERENCE UNITS LAB GLU Glucose 107 High 70-100 mg/dL Result Comment: Random Gluco se Reference Range is dependent on time and content of last meal. Glucose of more than 200 mg/dL in a nonstressed, ambulatory subject supports the diagnosis of Diabetes Mellitus. ADA recommended reference range LAB BUN Blood Urea Nitrogen 28 High 7-25 mg/d L LAB CREATT Creatinine 1.02 Normal 0.60-1.20 mg/dL LAB GFReNR Estimated GFR >60.0 LAB NA Sodium 140 Normal 136-145 mmol/L LAB K Potassium 4.0 Normal 3.5-5.1 mmol/L LAB CL Chloride 105 Normal 98-107 mmol/L LAB CO2 Carbon Dioxide 29.4 Normal 21.0-31.0 mmol/L LAB GAP Anion Gap 9.6 Normal 6.0-15.0 LAB CA Calcium 10.0 Normal 8.6-10.3 mg/dL LAB TP Total Protein 7.2 Normal 6.4-8.9 g/dL LAB ALB Albumin Level 4.6 Normal 3.5-5.7 g/dL LAB GLOB Globulin 2.6 g/dL LAB AGRATIO Albumin/Globulin Ratio 1.8 LAB BILIT Bilirubin,Total 0.4 Normal 0.3-1.0 mg/dL LAB AST Aspartate Amino Transferase 26 Normal 13-39 U/L LAB ALT Alanine Aminotransferase 22 Normal 7-52 U/L LAB ALP Alkaline Phosphatase 59 Normal 34-104 U/L Performed By: #### CBC, ESR, ADDONUAPLUS, CMP, PHOS, MG #### [facility] [address] [place] [address] [place] #### FAYE, ANTIR, C3, CH50, CHROMATIN, ADNA, C4, HISAB #### [facility] , PHOSPHORUS Collected: 1:31 PM Status: F Source: [facility] TYPE CODE TESTS RESULT OUT OF RANGE REFERENCE UNITS LAB PHOS Phosphorus 2.9 Normal 2.5-4.5 mg/dL Performed By: #### CBC, ESR, ADDONUAPLUS, CMP, PHOS, MG #### [facility] [address] #### FAYE, ANTIR, C3, CH50, CHROMATIN, ADNA, C4, HISAB #### [facility] , MAGNESIUM Collected: 1:31 PM Status: F Source: [facility] TYPE CODE TESTS RESULT OUT OF RANGE REFERENCE UNITS LAB MG Magnesium 2.2 Normal 1.9-2.7 mg/dL Result Comment: PERFORMED BY : [facility] [address] [place] [address] PATHOLOGIST CAMPUS SUPERVISOR MERLINE WISE M.D. Performed By: #### CBC, ESR, ADDONUAPLUS, CMP, PHOS, MG #### [facility] [address] #### FAYE, ANTIR, C3, CH50, CHROMATIN, ADNA, C4, HISAB #### [facility] , COMPLETE BLOOD COUNT AUTO DIFF Collected: 02/21/2025 1:31 PM Status: F Source: [facility] TYPE CODE TESTS RESULT OUT OF RANGE REFERENCE UNITS LAB WBC White Blood Count 8.3 Normal 3.8-11.6 [CFU]/mL LAB UNWBC Uncorrected WBC 8.3 Normal 3.8-11.6 10*3/uL LAB RBC Red Blood Count 4.31 Normal 3.60-5.00 10*6/u L LAB HGB Hemoglobin 13.5 Normal 11.8-15.4 g/dL LAB HCT Hematocrit 40.7 Normal 34.0-46.4 % LAB MCV Mean Corpuscular Volume 94.5 Normal 80-100 fL LAB MCH Mean Corpuscular Hemoglobin 31.3 Normal 24.7-34.3 pg LAB MCHC Mean Corpuscular HGB Conc 33.1 Normal 32.0-35.0 g/dL LAB RDW Red Cell Distribution Width 13.4 Normal 11.9-15.3 % LAB PLT Platelet Count 244 Normal 150-450 10*3/uL LAB MPV Mean Platelet Volume 9.9 Normal 6.3-10.7 fL LAB NE% Neutrophils % (Auto) 67.5 . % LAB LY% Lymphocytes % (Auto) 23.0 . % LAB MO% Monocytes % (Auto) 7.5 . % LAB EO% Eosinophils % (Auto) 1.0 . % LAB BA% Basophils % (Auto) 1.0 . % LAB NRBC% NRBC% 0.0 Normal 0-0.5 /100{WBC} LAB NE# Neutrophils # (Auto) 5.6 Normal 1.8-7.7 10*3/uL LAB LY# Lymphocytes # (Auto) 1.9 Normal 1.00-4.8 10*3/uL LAB MO# Monocytes # (Auto) 0.6 Normal 0.0-0.8 10*3/uL LAB EO# Eosinophils # (Auto) 0.1 Normal 0.0-0.45 10*3/uL LAB BA# Basophils # (Auto) 0.1 Normal 0.0-0.2 10*3/uL Performed By: #### CBC, ESR, ADDONUAPLUS, CMP, PHOS, MG #### [address] #### FAYE, ANTIR, C3, CH50, CHROMATIN, ADNA, C4, HISAB #### [facility] , ERYTHROCYTE SEDIMENTATION RATE Collected: 02/21/2025 1:31 PM Status: F Source: [facility] TYPE CODE TESTS RESULT OUT OF RANGE REFERENCE UNITS LAB ESR Erythrocyte Sedimentation Rate 36 High 0-29 Result Comment: PERFORMED BY : [place] [address] PATHOLOGIST CAMPUS SUPERVISOR MERLINE WISE M.D. Performed By: #### CBC, ESR, ADDONUAPLUS, CMP, PHOS, MG #### [address] #### FAYE, ANTIR, C3, CH50, CHROMATIN, ADNA, C4, HISAB #### [facility] , COMPLEMENT TOTAL (CH50) Collected: 02/21/2025 1:31 PM Status: F Source: [facility] TYPE CODE TESTS RESULT OUT OF RANGE REFERENCE UNITS LAB CH50 Complement Total (CH50) 59 >41 Result Comment: Age Male Fem shama 1 - 30 days Not Estab. Not Estab. 31 days - 6 months >32 >20 7 months - 17 years >39 >39 >17 years >41 >41 NOTE: The adult ( >17 years ) reference interval range is used to flag abnormals on this report. If the patient is 17 years old or younger, use the table above to determine out of range values. Performed at: [facility] [id number] Family Consumer Science Teacher: Haresh Obregon PhD, Phone: [phone] PERFORMED BY: [place] [address] PATHOLOGIST CAMPUS SUPERVISOR MERLINE WISE M.D. Performed By: #### CBC, ESR, ADDONUAPLUS, CMP, PHOS, MG #### [address] #### FAYE, ANTIR, C3, CH50, CHROMATIN, ADNA, C4, HISAB #### [facility] , ANTI-PAPER MILL SUPERVISOR Collected: 1:31 PM Status: F Source: [facility] TYPE CODE TESTS RESULT OUT OF RANGE REFERENCE UNITS LAB ANTIR Anti-PAPER MILL SUPERVISOR 1.0 0.0-0.9 Performed By: #### CBC, ESR, ADDONUAPLUS, CMP, PHOS, MG #### [address] #### FAYE, ANTIR, C3, CH50, CHROMATIN, ADNA, C4, HISAB #### [facility] , ANTI-FAYE ANTIBODIES Collected: 02/21/2025 1:31 PM Status: F Source: [facility] TYPE CODE TESTS RESULT OUT OF RANGE REFERENCE UNITS LAB FAYE Anti-Faye Antibodies 3.1 0.0-0.9 Performed By: #### CBC, ESR, ADDONUAPLUS, CMP, PHOS, MG #### [place] [address] [place] #### FAYE, ANTIR, C3, CH50, CHROMATIN, ADNA, C4, HISAB #### [facility] , HISTONE ANTIBODIES Collected: 02/21/2025 1:31 PM Sta tus: F Source: [facility] TYPE CODE TESTS RESULT OUT OF RANGE REFERENCE UNITS LAB HISAB Histone Antibodies 0.8 0.0-0.9 Result Comment: Negative <1 .0 Weak Positive 1.0 - 1.5 Moderate Positive 1.6 - 2.5 Strong Positive >2.5 Performed at: [address] [id number] Family Consumer Science Teacher: Josephine Joseph MD, Phone: [phone] Performed By: #### CBC, ESR, ADDONUAPLUS, CMP, PHOS, MG #### [address] #### FAYE, ANTIR, C3, CH50, CHROMATIN, ADNA, C4, HISAB #### [facility] , COMPLEMENT C3 Collected: 02/21/2025 1:31 PM Status: F Source: [facility] TYPE CODE TESTS RESULT OUT OF RANGE REFERENCE UNITS LAB C3 Complement C3 164 82-167 mg/dL Result Comment: Performed at : [address] [id number] Family Consumer Science Teacher: Haresh Obregon PhD, Phone: [phone] Performed By: #### CBC, ESR, ADDONUAPLUS, CMP, PHOS, MG #### [address] #### FAYE, ANTIR, C3, CH50, CHROMATIN, ADNA, C4, HISAB #### [facility] , COMPLEMENT C4 Collected: 02/21/2025 1:31 PM Status: F Source: [facility] TYPE CODE TESTS RESULT OUT OF RANGE REFERENCE UNITS LAB C4 Complement C4 30 12-38 mg/dL Performed By: #### CBC, ESR, ADDONUAPLUS, CMP, PHOS, MG #### [place] [address] [place] #### FAYE, ANTIR, C3, CH50, CHROMATIN, ADNA, C4, HISAB #### [facility] , ANTI-DSDNA(DBL)AB Collected: 1:31 PM Status: F Source: [facility] TYPE CODE TESTS RESULT OUT OF RANGE REFERENCE UNITS LAB ADNA Anti-dsDNA( DBL)Ab <1 0-9 Result Comment: Negative <5 Equivocal 5 - 9 Positive >9 Performed at: [facility] [id number] Family Consumer Science Teacher: Haresh Obregon PhD, Phone: [phone] Performed By: #### CBC, ESR, ADDONUAPLUS, CMP, PHOS, MG #### [address] #### FAYE, ANTIR, C3, CH50, CHROMATIN, ADNA, C4, HISAB #### [facility] , CHROMATIN ANTIBODY Collected: 02/21/2025 1:31 PM Sta tus: F Source: [facility] TYPE CODE TESTS RESULT OUT OF RANGE REFERENCE UNITS LAB CHROMATIN Chromatin Antibody 1.7 0.0-0.9 Result Comment: PERFORMED BY : [place] [address] PATHOLOGIST CAMPUS SUPERVISOR MERLINE WISE M.D. Performed By: #### CBC, ESR, ADDONUAPLUS, CMP, PHOS, MG #### [address] #### FAYE, ANTIR, C3, CH50, CHROMATIN, ADNA, C4, HISAB #### [facility] , THERAPY NT Observed: 02/13/2025 11:14 AM Status: COMPLETED Source: [facility] HNO ID: [id number] Author: SELENE MCLEAN, PT Service: Physical Therapy Author Type: Physical Therapist Type: Therapy (PT/OT/Speech/Resp) Filed: 02/13/2025 11:14 Note Text: Program_ID:[id number] Access Code: [email or web address] URL: [email or web address] Date: 02-13-2025 Prepared By: Selene Mclean Program Notes Exercises - Prone Scapular Protraction Retraction AROM on Forearms - 1 x daily - 7 x weekly - sets - 20 reps - Cervical Rotation Prone on Elbows - 1-2 x daily - 7 x weekly - 1-2 sets - 10-15 reps- Cat Cow - 1 x daily - 7 x weekly - 1-2 sets - 10-15 reps - Shoulder External Rotation and Scapular Retraction with Resistance - 1 x daily - 7 x weekly - 1-2 sets - 10-15 reps - Standing Shoulder Horizontal Abduction with Resistance - 1 x daily - 7 x weekly - 1-2 sets - 10-15 reps - Correct Standing Posture - 10 x daily - 7 x weekly - 1 sets - 10 reps - Standing Shoulder Row with Anchored Resistance - 1 x daily - 7 x weekly - 1-2 sets - 10-15 reps - Bent Over Single Arm Shoulder Row with Dumbbell - 1 x daily - 7 x weekly - 1-2 sets - 10-15 reps - Incline Bench Press with Dumbbells - 1 x daily - 7 x weekly - 1-2 sets - 10-15 reps CNTHERAPY Observed: 02/13/2025 10:45 AM Status: COMPLETED Source: [facility] OT/PT/Speech Visit (DYAN) JOSELITO CARVER ([id number]) 1960 F Date Time Provider Department 02/13/25 10:45 AM SELENE MCLEAN Date Time Provider Department Center 02/13/2025 10:45 AM [id number] MCLEAN Reason for Visit: PT Discharge [752] Primary Visit Diagnosis:Pain in joint of right shoulder [M25.511] Allergies As of Date: 02/13/2025 Noted Allergy Reaction NSAIDS (NON-STEROIDAL ANTI-INFLAM*09/13/2018 14 - Other: See Comments Comments: Cannot take NSAIDS due to kidney disease Date Reviewed: 01/05/2025 Reviewed by: Keon Gonzalez RN - Fully Assessed Prescriptions as of 02/13/2025 - meloxicam (MOBIC) 15 mg tablet Take 15 mg by mouth once daily. - atorvastatin (LIPITOR) 10 mg tablet Take 10 mg by mouth once daily. - alendronate (FOSAMAX) 70 mg tablet Take 70 mg by mouth once each week. - baclofen (LIORESAL) 10 mg tablet Take 10 mg by mouth as needed. - citalopram (CELEXA) 40 mg tablet Take 40 mg by mouth once daily. - estradiol (ESTRACE) 0.01 % (0.1 mg/gram) vaginal cream Use 1 g vaginally twice a week. - ranitidine (ZANTAC) 150 mg tablet Take 150 mg by mouth twice daily. - calcium citrate/vitamin D3 (CITRACAL + D ORAL) Take by mouth. - MULTIVITAMIN ORAL Take by mouth. - flaxseed oil (OMEGA 3 ORAL) Take by mouth. - glucosamine/chondr spears A sod (OSTEO BI-FLEX ORAL) Take by mouth. - Magnesium 250 mg tab Take 250 mg by mouth. - cyanocobalamin, vitamin B-12, (VITAMIN B-12 ORAL) Take by mouth. - ascorbic acid (VITAMIN C ORAL) Take by mouth. - CAFFEINE ORAL Take 175 mg by mouth. Shaker Tender: Therapy (PT/OT/Speech/Resp) ID: [id number] 02/13/2025 11:14 AM Author: SELENE MCLEAN Signed by SELENE MCLEAN PT on 02/13/2025 at 11:14 AM Document text: Program_ID:[id number] Access Code: [email or web address] URL: [email or web address] Date: 02-13-2025 Prepared By: Selene Mclean Program Notes Exercises - Prone Scapular Protraction Retraction AROM on Forearms - 1 x daily - 7 x weekly - sets - 20 reps - Cervical Rotation Prone on Elbows - 1-2 x daily - 7 x weekly - 1-2 sets - 10-15 reps - Cat Cow - 1 x daily - 7 x weekly - 1-2 sets - 10-15 reps - Shoulder External Rotation and Scapular Retraction with Resistance - 1 x daily - 7 x weekly - 1-2 sets - 10-15 reps - Standing Shoulder Horizontal Abduction with Resistance - 1 x daily - 7 x weekly - 1-2 sets - 10-15 reps - Correct Standing Posture - 10 x daily - 7 x weekly - 1 sets - 10 reps - Standing Shoulder Row with Anchored Resistance - 1 x daily - 7 x weekly - 1-2 sets - 10-15 reps - Bent Over Single Arm Shoulder Row with Dumbbell - 1 x daily - 7 x weekly - 1-2 sets - 10-15 reps - Incline Bench Press with Dumbbells - 1 x daily - 7 x weekly - 1-2 sets - 10-15 reps PROGRESS Observed: 02/13/2025 10:36 AM Status: COMPLETED Source: [facility] HNO ID: [id number] Author: SELENE MCLEAN, PT Service: ? Author Type: Physical Therapist Type: Progress Notes Filed: 02/13/2025 11:19 Note Text: Episode Visit Count: 3 Therapist That Will Accept/Oversee The Plan Of Care: Selene Mclean Start of Care Date: 01/05/25 Onset Date: 08/31/22 Patient Identified by Name and Date of : Yes [facility]AB[facility] PHYSICAL THERAPY DISCONTINUANCE OF CARE PLAN OF CARE UPDATE: Assessment: Joselito Carver is discontinued from Physical Therapy services due to goal achievement and maximal benefit.. Patient was seen for 3 visits from Start of Care Date: 01/05/25 to 02/13/2025 and treatment included: Therapeutic exercise, Neuromuscular re-education, Manual therapy, and Self-alf management. Patient has had improvements in cervical and right shoulder ROM, strength and flexibility, ability to perform functional activities, and decreased pain since initiating physical therapy services. Goals for Episode of Care: established 01/05/25 Updated 02/13/25 [place] in home exercise program. MET Patient will decrease pain rating by 2 points to meet minimal clinical important difference for numeric pain rating scale. MET Patient will increase active ROM of right shoulder to 160 deg to allow pt to to improve postural alignment and to improve performance of ADLs. MET Restore pain free cervical ROM to min restriction to allow for improved ability to perform functional activities and ADLs. Partially MET Patient will demonstrate increase in bilateral shoulder strength to 4+/5 during manual muscle testing in order to improve function for basic self-care tasks, leisure / recreation skills, and prior functional tasks. MET Patient will increase flexibility of bilateral upper traps to min restriction to improve ability to maintain proper posture, improve mechanics, and decrease pain. Not MET Perform recreational activities with decreased report of symptoms/pain in 8 weeks. MET Improve postural awareness. MET SUBJECTIVE: Patient reports that her shoulder is feeling quite a bit better. Would like to learn strategies to maintain her strength and posture. Her exercises are not bad. The weights have been good, has done more reps, has not gone up in weight yet. The bands are good. Feels like the knots are still there, thinks those have been there as long as she can remember, however the pain at night is better. Two weekends ago did a 50k race, and walked it, but paid attention to he posture, and her shoulders were fine, but her back did seize up. Overall feels good with the exercises she has. Feels confident to continue on her own. Is ready for discharge this date. Functional Limitations: walking, sitting, heavy exertion, lifting, physical activities, recreational activities, sleeping Pain: Pain Pain Level: 0 Pain Location: Shoulder - Right Description: Dull Frequency: Intermittent Post Treatment Pain Post Treatment Pain Level: No Change PROMIS Scales 02/12/2025 01/24/2025 01/05/2025 Higher is Better Phys Func - T Score 50 (within normal limits) Phys Func - Percentile 50 Self-Eff Symptom - T Score 51 (Average) 48 (Average) Self-Eff Symptom - Percentile 54 42 T-scores: mean of general population = 50. 5 points is clinically meaningfully difference Percentiles provide an indication of how the patient's score ranks in relation to the general population. Higher percentile rankings indicate better function/quality of life. 50th percentile is the average of the general population and indicates half of respondents had a worse score. OBJECTIVE MEASURES WITH LEVEL OF FUNCTION: Posture / Alignment Posture: Forward head, Rounded shoulders Cervical Spine ROM Cervical ROM : Limitation AROM Cervical Flexion AROM: Minimal limitation Cervical Extension AROM: Moderate limitation Cervical Side-Bend Right AROM: Moderate limitation (stretch) Cervical Side-Bend Left AROM: Moderate limitation (stretch) Cervical Rotation Right AROM: Minimal limitation Cervical Rotation Left AROM: Minimal limitation UE AROM R Shoulder Extension: 62 Degrees R Shoulder Flex: 142 Degrees (pain) R Shoulder ABduction: 165 Degrees R Shoulder Internal Rotation (Functional): T8 R Shoulder External Rotation (Functional): T2 L Shoulder Extension: 60 Degrees L Shoulder Flex: 160 Degrees L Shoulder ABduction: 165 Degrees L Shoulder Internal Rotation (Functional): T7 L Shoulder External Rotation (Functional): T2 UE Flexibility Flexibility: Upper Trapezius R Upper Trapezius Flexibilty Comments: mod restriction L Upper Trapezius Flexibility Comments: mod restriction UE and Cervical Strength Strength Tested: Shoulder All R Shoulder Extension: 4+/5 R Shoulder Flexion: 4+/5 (slight pain) R Shoulder Abduction (C5): 4+/5 R Shoulder Internal Rotation: 4+/5 R Shoulder External Rotation: 4+/5 L Shoulder Extension: 4+/5 L Shoulder Flexion: 4/5 L Shoulder Abduction (C5): 4+/5 L Shoulder Internal Rotation: 4+/5 L Shoulder External Rotation: 4+/5 TREATMENT: Therapeutic Exercise: 1: shoulder ER bilat L3 TB x 15 reps 2: shoulder horiz abd bilat L4 TB x 15 reps 3: Incline press 6# x 12 reps x 2 sets 4: Review of all HEP exercises, reissues handouts 8: Goal/Skill re-check x 8' Skilled Intervention: Patient was educated in proper exercise technique and purpose for exercises. Skilled judgment was used in selection of appropriate interventions. Correct performance of therapeutic exercises was facilitated with verbal, visual, and tactile cuing. Educated patient on rationale for performing exercises in regards to decreasing fatigue , improving fitness, increase ease of ADL, and ROM and function . Patient education as noted. Manual Therapy: 1: STM to bilateral upper traps 3: Trigger point release to bilat upper traps 4: sub occpital release Skilled Intervention: Manual skills to improve joint mobility, ROM, and decrease pain. Utilized anatomy knowledge of the clinician, and assessment of patient's response to intervention. Neuromuscular Re-Education: 3: cat/camel x 20 reps alt 4: SA row from bench 8# x 15 reps each side x 2 sets 5: L5 TB mid row x 15 reps x 2 sets Skilled Intervention: Education in proprioceptive/kinesthetic awareness during dynamic activities. Correct performance of home program was facilitated with verbal, visual, and tactile cueing. Patient education as noted. Billing Therapeutic Exercise Treatment Minutes: 24 Manual TherapyTreatment Minutes: 8 Neuromuscular Re-Education Treatment Minutes: 10 Skilled Treatment Time Minutes (timed and untimed codes): 42 Total Session Time (minutes): 42 Session Start Time : 1036 Session Stop Time : 1118 Selene Mclean PT, DPT THERAPY NT Observed: 01/24/2025 5:08 PM Status: COMPLETED Source: [facility] HNO ID: [id number] Author: SELENE MCLEAN PT Service: Physical Therapy Author Type: Physical Therapist Type: Therapy (PT/OT/Speech/Resp) Filed: 01/24/2025 17:08 Note Text: Program_ID:[id number] Access Code: [email or web address] URL: [email or web address] Date: 01-24-2025 Prepared By: Selene Mclean Program Notes Exercises - Prone Scapular Protraction Retraction AROM on Forearms - 1 x daily - 7 x weekly - sets - 20 reps - Cervical Rotation Prone on Elbows - 1-2 x daily - 7 x weekly - 1-2 sets - 10-15 reps - Cat Cow - 1 x daily - 7 x weekly - 1-2 sets - 10-15 reps - Shoulder External Rotation and Scapular Retraction with Resistance - 1 x daily - 7 x weekly - 1-2 sets - 10-15 reps - Correct Standing Posture - 10 x daily - 7 x weekly - 1 sets - 10 reps - Standing Shoulder Row with Anchored Resistance - 1 x daily - 7 x weekly - 1-2 sets - 10-15 reps - Bent Over Single Arm Shoulder Row with Dumbbell - 1 x daily - 7 x weekly - 1-2 sets - 10-15 reps CNTHERAPY Observed: 01/24/2025 4:30 PM Status: COMPLETED Source: [facility] OT/PT/Speech Visit (LOPTRM) JOSELITO CARVER ([id number]) 1960 F Date Time Provider Department 01/24/25 4:30 PM SELENE MCLEAN Date Time Provider Department Center 01/24/2025 4:30 PM [id number] MCLEAN [facility] Reason for Visit: Physical Therapy [503] Primary Visit Diagnosis:Pain in joint of right shoulder [M25.511] Allergies As of Date: 01/24/2025 Noted Allergy Reaction NSAIDS (NON-STEROIDAL ANTI-INFLAM*09/13/2018 14 - Other: See Comments Comments: Cannot take NSAIDS due to kidney disease Date Reviewed: 01/05/2025 Reviewed by: Keon Gonzalez RN - Fully Assessed Prescriptions as of 01/24/2025 - meloxicam (MOBIC) 15 mg tablet Take 15 mg by mouth once daily. - atorvastatin (LIPITOR) 10 mg tablet Take 10 mg by mouth once daily. - alendronate (FOSAMAX) 70 mg tablet Take 70 mg by mouth once each week. - baclofen (LIORESAL) 10 mg tablet Take 10 mg by mouth as needed. - citalopram (CELEXA) 40 mg tablet Take 40 mg by mouth once daily. - estradiol (ESTRACE) 0.01 % (0.1 mg/gram) vaginal cream Use 1 g vaginally twice a week. - ranitidine (ZANTAC) 150 mg tablet Take 150 mg by mouth twice daily. - calcium citrate/vitamin D3 (CITRACAL + D ORAL) Take by mouth. - MULTIVITAMIN ORAL Take by mouth. - flaxseed oil (OMEGA 3 ORAL) Take by mouth. - glucosamine/chondr spears A sod (OSTEO BI-FLEX ORAL) Take by mouth. - Magnesium 250 mg tab Take 250 mg by mouth. - cyanocobalamin, vitamin B-12, (VITAMIN B-12 ORAL) Take by mouth. - ascorbic acid (VITAMIN C ORAL) Take by mouth. - CAFFEINE ORAL Take 175 mg by mouth. Shaker Tender: Addendum Therapy (PT/OT/Speech/Resp) ID: [id number] 01/24/2025 5:08 PM Author: SELENE MCLEAN Signed by SELENE MCLEAN PT on 01/24/2025 at 5:08 PM * * * This document replaces document [id number] * * * Document text: Program_ID:[id number] Access Code: [email or web address] URL: [email or web address] Date: 01-24-2025 Prepared By: Selene Mclean Program Notes Exercises - Prone Scapular Protraction Retraction AROM on Forearms - 1 x daily - 7 x weekly - sets - 20 reps - Cervical Rotation Prone on Elbows - 1-2 x daily - 7 x weekly - 1-2 sets - 10-15 reps - Cat Cow - 1 x daily - 7 x weekly - 1-2 sets - 10-15 reps - Shoulder External Rotation and Scapular Retraction with Resistance - 1 x daily - 7 x weekly - 1-2 sets - 10-15 reps - Correct Standing Posture - 10 x daily - 7 x weekly - 1 sets - 10 reps - Standing Shoulder Row with Anchored Resistance - 1 x daily - 7 x weekly - 1-2 sets - 10-15 reps - Bent Over Single Arm Shoulder Row with Dumbbell - 1 x daily - 7 x weekly - 1-2 sets - 10-15 reps PROGRESS Observed: 01/24/2025 4:22 PM Status: COMPLETED Source: [facility] HNO ID: [id number] Author: SELENE MCLEAN PT Service: ? Author Type: Physical Therapist Type: Progress Notes Filed: 01/24/2025 17:24 Note Text: Episode Visit Count: 2 Therapist That Will Accept/Oversee The Plan Of Care: Selene Mclean Start of Care Date: 01/05/25 Onset Date: 08/31/22 Patient Identified by Name and Date of : Yes REHABILITATION AND SPORTS THERAPY PHYSICAL THERAPY TREATMENT NOTE ASSESSMENT: Joselito Carver tolerated the session with expected muscle soreness. She demonstrated improvements in ability to perform functional activities and strengthening exercises this visit. Tightness and restriction noted in bilateral upper traps. The patient will continue to benefit from ongoing skilled physical therapy to progress toward set goals. PLAN FOR NEXT VISIT: Re-assess SUBJECTIVE: Patient reports that she is not too bad. She learned that her arms are really weak, they shake when doing the exercises. [place] her neck is extremely noisy, whenever she moves it it cracks. Thinks the exercises have helped, has not had any of the excruciating pains where she can't sleep. Exercises are going OK. Pain: Pain Pain Level: 3 Pain Location: Shoulder - Right Description: Dull Frequency: Intermittent Post Treatment Pain Post Treatment Pain Level: No Change OBJECTIVE MEASURES WITH LEVEL OF FUNCTION: Shoulder Observations R Shoulder Palpation Tenderness: Levator Scapulae, Trapezius (Upper), Medial scapula L Shoulder Palpation Tenderness: Levator Scapulae, Trapezius (Upper), Medial scapula Cervical Spine ROM Cervical ROM : Limitation AROM Cervical Flexion AROM: Minimal limitation Cervical Extension AROM: Moderate limitation Cervical Side-Bend Right AROM: Moderate limitation, Increased pain Cervical Side-Bend Left AROM: Moderate limitation, Increased pain Cervical Rotation Right AROM: Minimal limitation, Increased pain Cervical Rotation Left AROM: Minimal limitation TREATMENT: Therapeutic Exercise: 1: shoulder ER bilat L3 TB x 15 reps 2: shoulder horiz abd bilat L3 TB x 15 reps Skilled Intervention: Patient was educated in proper exercise technique and purpose for exercises. Reviewed and educated patient on additions/changes for home exercise program as above (*). Skilled judgment was used in selection of appropriate interventions. Correct performance of therapeutic exercises was facilitated with verbal, visual, and tactile cuing. Educated patient on rationale for performing exercises in regards to decreasing fatigue , improving fitness, increase ease of ADL, and ROM and function . Patient education as noted. Manual Therapy: 1: STM to bilateral upper traps 2: PROM R shoulder 3: Trigger point release to bilat upper traps 4: sub occpital release Skilled Intervention: Manual skills to improve joint mobility, ROM, and decrease pain. Utilized anatomy knowledge of the clinician, and assessment of patient's response to intervention. Neuromuscular Re-Education: 1: prone on elbows scapular protraction/retraction x 20 reps 2: prone on elbows thoracic rotation alt sides x 20 reps 3: cat/camel x 20 reps alt 4: *SA row from bench 8# x 10 reps each side x 2 sets 5: *L4 TB mid row x 15 reps x 2 sets Skilled Intervention: Education in proprioceptive/kinesthetic awareness during standing and dynamic activities. Reviewed and educated patient on additions/changes for home program as noted above with an (*). Correct performance of home program was facilitated with verbal, visual, and tactile cueing. Patient education as noted. Billing Therapeutic Exercise Treatment Minutes: 10 Manual TherapyTreatment Minutes: 14 Neuromuscular Re-Education Treatment Minutes: 20 Skilled Treatment Time Minutes (timed and untimed codes): 44 Total Session Time (minutes): 44 Session Start Time : 1627 Session Stop Time : 1711 Selene Mclean PT, DPT THERAPY NT Observed: 01/05/2025 1:11 PM Status: COMPLETED Source: [facility] HNO ID: [id number] Author: SELENE MCLEAN PT Service: Physical Therapy Author Type: Physical Therapist Type: Therapy (PT/OT/Speech/Resp) Filed: 01/05/2025 13:11 Note Text: Program_ID:[id number] Access Code: [email or web address] URL: [email or web address] Date: 01-05-2025 Prepared By: Selene Mclean Program Notes Exercises - Prone Scapular Protraction Retraction AROM on Forearms - 1 x daily - 7 x weekly - sets - 20 reps - Cervical Rotation Prone on Elbows - 1-2 x daily - 7 x weekly - 1-2 sets - 10-15 reps - Cat Cow - 1 x daily - 7 x weekly - 1-2 sets - 10-15 reps - Shoulder External Rotation and Scapular Retraction with Resistance - 1 x daily - 7 x weekly - 1-2 sets - 10-15 reps - Correct Standing Posture - 10 x daily - 7 x weekly - 1 sets - 10 reps PROGRESS Observed: 01/05/2025 12:30 PM Status: COMPLETED Source: [facility] HNO ID: [id number] Author: SELENE MCLEAN PT Service: ? Author Type: Physical Therapist Type: Progress Notes Filed: 01/05/2025 13:26 Note Text: Episode Visit Count: 1 Therapist That Will Accept/Oversee The Plan Of Care: Selene Mclean Start of Care Date: 01/05/25 Onset Date: 08/31/22 Patient Identified by Name and Date of : Yes REHABILITATION AND SPORTS THERAPY PHYSICAL THERAPY EVALUATION PLAN OF CARE: Assessment: Joselito Carver presents with chief complaint of right shoulder pain that interferes with walking, sitting, heavy exertion, lifting, physical activities, recreational activities, sleeping . The patient presents with impairments in flexibility, overall function, range of motion, strength, symptom management, and tissue tenderness. PROMIS? (Patient-Reported Outcomes Measurement Information System) scores were reviewed and identified as within normal limits. Prognosis for therapy is Good due to: current objective clinical presentation . The patient will benefit from skilled therapy services to meet the goals established for this plan of care as noted below. Because of above mentioned impairments and past medical history patient qualifies as a low complexity evaluation. Goals for Episode of Care: established 01/05/25 [place] in home exercise program. Patient will decrease pain rating by 2 points to meet minimal clinical important difference for numeric pain rating scale. Patient will increase active ROM of right shoulder to 160 deg to allow pt to to improve postural alignment and to improve performance of ADLs. Restore pain free cervical ROM to min restriction to allow for improved ability to perform functional activities and ADLs. Patient will demonstrate increase in bilateral shoulder strength to 4+/5 during manual muscle testing in order to improve function for basic self-care tasks, leisure / recreation skills, and prior functional tasks. Patient will increase flexibility of bilateral upper traps to min restriction to improve ability to maintain proper posture, improve mechanics, and decrease pain. Perform recreational activities with decreased report of symptoms/pain in 8 weeks. Improve postural awareness. Patient Goals: Be able to lift again Time Frame for Goals and Treatment : 03/06/25 Planned Interventions, Frequency, and Duration: Current Frequency: 1x every other week Duration: 8 weeks Total Number of Visits Planned: 4 Planned Treatment Interventions: Therapeutic exercise (78765), Neuromuscular re-education (20256), Manual therapy (95996), Therapeutic activities (04992), Self-alf management (13666), Gait Training (94710), Patient/Family/Caregiver Education PLAN FOR NEXT VISIT: Review HEP, posture, rotator cuff strengthening Patient demonstrates good understanding of plan of care and treatment. The above goals and plan of care were discussed and agreed upon by patient/family. SUBJECTIVE: Patient reported to visit with her . Patient reports that she has been having shoulder pain for about 2 years, it has been gradually getting worse. She had surgery in 2013 had a rotator cuff surgery, but had been doing fine up until recently. 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 Has not been lifting recently, for about the last year due to pain. Sometimes it hurts when she is sitting reading, she plays an instrument and that bothers the pain. She power walks, and that bothers the pain. Getting in and out of the tub is tricky. Notes she has knee issues as well, so that is hard. Notes she does have neck pain as well. Is not sure which started hurting first. Denies numbness and tingling down her right arm. Sometimes gets pain down her left arm when she is walking really fast. It goes away when she stops walking. Notes she has muscle knots on both sides of her spine. But they are worse on the right. Patient Goals: Be able to lift again Functional Limitations: walking, sitting, heavy exertion, lifting, physical activities, recreational activities, sleeping Prior Level of Function: Independent without limitations Relevant History Past Relevant Medical Conditions: Kidney Problems Past Relevant Surgical Conditions: Rotator Cuff Repair-Right Right or Left Handed: Right Employment: Retired Recreation / Current Exercise: Walking Hobbies / Interests: Reading, playing instrument Home Environment Patient Lives With: Spouse Intake Information: Prescription present Previous Treatment: Self prescribed exercises, NSAIDs , Heat , Topicals, Injections (Tylenol) Falls Interview: No positive findings with falls interview Pain: Pain Pain Level: 4 Pain Location: Shoulder - Right Description: Dull Frequency: Intermittent Post Treatment Pain Post Treatment Pain Level: Better PROMIS Scales 01/05/2025 12/14/2024 07/23/2024 Higher is Better Phys Func - T Score 48 (within normal limits) 44 (mild dysfunction) Phys Func - Percentile 42 27 Self-Eff Symptom - T Score 48 (Average) Self-Eff Symptom - Percentile 42 T-scores: mean of general population = 50. 5 points is clinically meaningfully difference Percentiles provide an indication of how the patient's score ranks in relation to the general population. Higher percentile rankings indicate better function/quality of life. 50th percentile is the average of the general population and indicates half of respondents had a worse score. OBJECTIVE MEASURES WITH LEVEL OF FUNCTION: Posture / Alignment Posture: Forward head, Rounded shoulders Shoulder Observations R Shoulder Palpation Tenderness: Levator Scapulae, Trapezius (Upper), Medial scapula L Shoulder Palpation Tenderness: Levator Scapulae, Trapezius (Upper), Medial scapula Sensation - Upper Extremity UE Light Touch Sensation: Grossly Intact Cervical Spine ROM Cervical ROM : Limitation AROM Cervical Flexion AROM: Minimal limitation Cervical Extension AROM: Moderate limitation Cervical Side-Bend Right AROM: Moderate limitation, Increased pain Cervical Side-Bend Left AROM: Moderate limitation, Increased pain Cervical Rotation Right AROM: Minimal limitation, Increased pain Cervical Rotation Left AROM: Minimal limitation UE AROM R Shoulder Extension: 59 Degrees R Shoulder Flex: 140 Degrees R Shoulder ABduction: 165 Degrees ( tight ) R Shoulder Internal Rotation (Functional): T9 ( tight ) R Shoulder External Rotation (Functional): T1 ( tight ) L Shoulder Extension: 56 Degrees L Shoulder Flex: 152 Degrees L Shoulder ABduction: 165 Degrees ( tight ) L Shoulder Internal Rotation (Functional): T7 L Shoulder External Rotation (Functional): T2 UE Flexibility Flexibility: Upper Trapezius R Upper Trapezius Flexibilty Comments: mod restriction L Upper Trapezius Flexibility Comments: mod restriction UE and Cervical Strength Strength Tested: Shoulder All R Shoulder Extension: 4/5 (pain) R Shoulder Flexion: 4-/5 (pain) R Shoulder Abduction (C5): 4-/5 (pain) R Shoulder Internal Rotation: 4+/5 R Shoulder External Rotation: 4-/5 (pain) L Shoulder Extension: 4/5 (pain) L Shoulder Flexion: 4-/5 (pain) L Shoulder Abduction (C5): 4-/5 (pain) L Shoulder Internal Rotation: 4+/5 L Shoulder External Rotation: 4-/5 (pain) Special Tests - Shoulder Shoulder Special Tests: Empty Can, Gr-Jose Daniel, Speed's Empty Can: Right Positive, Left Positive Gr-Jose Daniel: Right Negative, Left Negative Speed's: Right Negative, Left Negative Education: Education Learning Preferences: Demonstration, Explanation, Performance, Printed Materials Barriers: None Learning/educational needs: Home exercise program, Plan of Care Education Provided: Yes, see treatment interventions for education provided Education Provided To: Patient Education Mode/Type: Demonstration, Explanation/Discussion, Literature/Printed Materials, Performance, Teach Back Response to Education/Teach Back: States/Identifies, Return Demonstration TREATMENT: PT Treatment Interventions: Therapeutic Exercise, Manual Therapy, Neuromuscular Re-Education, Self-Prison Management Evaluation Evaluation Therapeutic Exercise: 1: *shoulder ER bilat L3 TB x 15 reps Skilled Intervention: Patient was educated in proper exercise technique and purpose for exercises. Reviewed and educated patient on additions/changes for home exercise program as above (*). Skilled judgment was used in selection of appropriate interventions. Correct performance of therapeutic exercises was facilitated with verbal, visual, and tactile cuing. Educated patient on rationale for performing exercises in regards to decreasing fatigue , improving fitness, increase ease of ADL, and ROM and function . Patient education as noted. Manual Therapy: 1: STM to bilateral upper traps 2: PROM bilateral shoulders Skilled Intervention: Manual skills to improve joint mobility, ROM, and decrease pain. Utilized anatomy knowledge of the clinician, and assessment of patient's response to intervention. Neuromuscular Re-Education: 1: *prone on elbows scapular protraction/retraction x 20 reps 2: *prone on elbows thoracic rotation alt sides x 20 reps 3: *cat/camel x 20 reps alt 4: Standing scapular postural education: Shoulder shrug shoulder ER until pinkies come forward, scapular depression, then shoulder unwinding hands at side. Perofmred in mirror for visual vues. Patient was instructed that this posture is not a muscularly held position and attempts to maximize use of the skeletal system against gravity and that most of muscular work to maintain this position should be experienced in the lower extremity. . Skilled Intervention: Education in proprioceptive/kinesthetic awareness during dynamic activities. Reviewed and educated patient on additions/changes for home program as noted above with an (*). Correct performance of home program was facilitated with verbal, visual, and tactile cueing. Patient education as noted. Self-Prison Management: 1: Patient educated on impairments noted this visit, discussed possible causes of pain, discussed treatment to address impairments to improve pain and function 2: Patient educated on plan of care and treatment 3: Patient educated on HEP and importance of compliance Skilled Intervention: Skilled judgment in the selection of proper modification for activity of daily living/home management based on clinical presentation, deficits, and needs. Reviewed patient specific diagnosis in relation to activities of daily living/home management. Activity progression based on professional judgement. Billing * Evaluation Low Complexity: 1 Unit Therapeutic Exercise Treatment Minutes: 3 Manual TherapyTreatment Minutes: 8 Neuromuscular Re-Education Treatment Minutes: 8 Self-Care/Home Management Treatment Minutes: 5 Skilled Treatment Time Minutes (timed and untimed codes): 45 Total Session Time (minutes): 45 Session Start Time : 1231 Session Stop Time : 1316 Selene Mclean PT, DPT CNTHERAPY Observed: 01/05/2025 12:30 PM Status: COMPLETED Source: [facility] OT/PT/Speech Visit (STEPHANEPTRM) JOSELITO CARVER ([id number]) 1960 F Date Time Provider Department 01/05/25 12:30 PM SELENE MCLEAN Date Time Provider Department [place] 01/05/2025 12:30 PM [id number]-LMEHODSELENE MCLEAN Reason for Visit: PT Eval [747] Patient Education [91] Primary Visit Diagnosis:Pain in joint of right shoulder [M25.511] Other Visit Diagnoses:Primary osteoarthritis of right shoulder [M19.011] Tendinopathy of right rotator cuff [M67.911] Cervicalgia [M54.2] Impingement syndrome of left shoulder [M75.42] Allergies As of Date: 01/05/2025 Noted Allergy Reaction NSAIDS (NON-STEROIDAL ANTI-INFLAM*09/13/2018 14 - Other: See Comments Comments: Cannot take NSAIDS due to kidney disease Date Reviewed: 01/05/2025 Reviewed by: Keon Gonzalez, RN - Fully Assessed Prescriptions as of 01/05/2025 - meloxicam (MOBIC) 15 mg tablet Take 15 mg by mouth once daily. - atorvastatin (LIPITOR) 10 mg tablet Take 10 mg by mouth once daily. - alendronate (FOSAMAX) 70 mg tablet Take 70 mg by mouth once each week. - baclofen (LIORESAL) 10 mg tablet Take 10 mg by mouth as needed. - citalopram (CELEXA) 40 mg tablet Take 40 mg by mouth once daily. - estradiol (ESTRACE) 0.01 % (0.1 mg/gram) vaginal cream Use 1 g vaginally twice a week. - ranitidine (ZANTAC) 150 mg tablet Take 150 mg by mouth twice daily. - calcium citrate/vitamin D3 (CITRACAL + D ORAL) Take by mouth. - MULTIVITAMIN ORAL Take by mouth. - flaxseed oil (OMEGA 3 ORAL) Take by mouth. - glucosamine/chondr spears A sod (OSTEO BI-FLEX ORAL) Take by mouth. - Magnesium 250 mg tab Take 250 mg by mouth. - cyanocobalamin, vitamin B-12, (VITAMIN B-12 ORAL) Take by mouth. - ascorbic acid (VITAMIN C ORAL) Take by mouth. - CAFFEINE ORAL Take 175 mg by mouth. Shaker Tender: Addendum Therapy (PT/OT/Speech/Resp) ID: [id number] 01/05/2025 1:11 PM Author: SEELNE MCLEAN Signed by SELENE MCLEAN PT on 01/05/2025 at 1:11 PM * * * This document replaces document [id number] * * * Document text: Program_ID:[id number] Access Code: [email or web address] URL: [email or web address] [email or web address] That [email or web address]/ Date: 01-05-2025 Prepared By: Selene Mclean Program Notes Exercises - Prone Scapular Protraction Retraction AROM on Forearms - 1 x daily - 7 x weekly - sets - 20 reps - Cervical Rotation Prone on Elbows - 1-2 x daily - 7 x weekly - 1-2 sets - 10-15 reps - Cat Cow - 1 x daily - 7 x weekly - 1-2 sets - 10-15 reps - Shoulder External Rotation and Scapular Retraction with Resistance - 1 x daily - 7 x weekly - 1-2 sets - 10-15 reps - Correct Standing Posture - 10 x daily - 7 x weekly - 1 sets - 10 reps PROGRESS Observed: 01/05/2025 11:35 AM Status: COMPLETED [id number] Author: GARRISON LEE PA-C Service: ? Author Type: Physician Sales Property Manager Type: Progress Notes Filed: 01/05/2025 11:54 Note Text: This document has been created with the use of voice recognition technology, including AI Scribe technology. It may contain inaccuracies: misspellings, inaccurate syntax or word sense that escaped review. CHIEF COMPLAINT: Joselito Carver is a 64 year old female who presents today for new evaluation of bilateral shoulder and neck pain. HISTORY OF PRESENT ILLNESS: PAIN EVALUATION 01/04/2025 1553 01/05/2025 1058 Pain Level: -- 5 Pain Location: Shoulder-Right Other: See Comment Bilateral Shoulders R>L Description: Aching;Dull;Spasm;Tightness Dull;Aching Duration Amount of Time: -- 3 Duration Units: Hours Years Frequency: Intermittent Intermittent Intervention/Comfort measure: Medication;Reposition;Relaxation;Distractions;Massage;Other: See comment Reposition;Relaxation;Positioning;Medication;Heat Comments: Stretching Aleve, Tylenol HISTORY: Joselito is a 64-year-old female presenting with chronic shoulder pain. Joselito reports bilateral shoulder pain that has been gradually worsening over the past 3 years. The pain is described as intense muscle knots located primarily in the trapezius region and occasionally radiating to the neck. She has attempted to alleviate the pain with stretching and heat application without significant relief. She has not engaged in gym activities for the past month. Joselito denies pain in the shoulder joint area but notes tenderness in the paraspinous region and crepitus when turning her head. She also experiences pain when attempting to touch her right ear to her right shoulder, with the right side being worse than the left. She reports a history of right shoulder surgery in 2013 for a 1.5 cm tear and was informed at the time that arthritis was present in the shoulder. She notes that it took about a year for the pain to subside post-surgery. She recently completed a half marathon in [facility], without any issues related to her shoulder pain. No other musculoskeletal complaints ROS: Neck: (+) neck pain, (+) neck crepitus Musculoskeletal: (+) right shoulder pain, (+) trapezius myalgia ALLERGIES: ALLERGIES Allergen Reactions Nsaids (Non-Steroid* Other: See Comments Cannot take NSAIDS due to kidney disease PAST MEDICAL HISTORY: PAST MEDICAL HISTORY Diagnosis Date Depression Kidney disease SOCIAL HISTORY: Tobacco Use: Never EXAMINATION: GENERAL: Appears healthy, well-nourished, no deformities. ORIENTATION: Alert and oriented to person place and time HABITUS: Normal GAIT: Normal, the patient did not have trouble getting onto the exam table. right shoulder exam: skin intact; no erythema, no ecchymosis, no arm swelling moderate irritability with PROM Tenderness to palpation of rtc capsule and GH joint inferiorly active equals passive ROM- 165/70 vs 175/80 positive pain with impingement maneuvers Pain and weakness with isometric contraction of the RC; when tested against resistance- SS and subscap Bicep with normal course No atrophy of the scapula girdle intact sensation to light touch distally good radial pulse left shoulder exam: skin intact; no erythema, no ecchymosis, no arm swelling no irritability with PROM Tenderness to palpation of none active equals passive ROM- 175/80 No pain with impingement maneuvers Slight weakness with isometric contraction of the RC; when tested against resistance- SS and IS Bicep with normal course No atrophy of the scapula girdle intact sensation to light touch distally good radial pulse positive pain with neck ROM, forward resting position of C-spine, TTP globally Labs: Tests: Imaging: - Right Shoulder X-ray: Moderate glenohumeral arthritis, large humeral bone spur, narrowed acromiohumeral interval - Right Shoulder MRI: 1.5 cm rotator cuff tear (surgically repaired in 2012) IMPRESSION: Encounter Diagnosis ICD-10-CM 1. Primary osteoarthritis of right shoulder M19.011 2. Tendinopathy of right rotator cuff M67.911 3. Cervicalgia M54.2 4. Impingement syndrome of left shoulder M75.42 Large Joint Arthro/Inj: R subacromial bursa 01/05/2025 11:41 AM The procedure site was prepped in the usual sterile fashion. Site: R subacromial bursa Medications: 40 mg triamcinolone acetonide 40 mg/mL Anesthetics: 8 mL lidocaine (PF) 10 mg/mL (1 %) Outcome: Tolerated well, no immediate complications Post-injection instructions were reviewed with the patient and the patient voiced understanding of these instructions. Informed Consent Consent Obtained: Written [place] Protocol A moment to CARE was completed. SIGN IN Personnel directly involved with the procedure wore the appropriate PPE. Special Equipment: Yes Patient/Surrogate Stated/Verified: Patient name, Date of , Relevant allergies and Intended procedure TIME OUT Relevant labs, photos, and/or imaging studies have been reviewed. Consent documented and matches the intended procedure. Correct side/site marked and visible. Medications required for procedure verified. No fire risk assessment and interventions applicable. No implant(s) inserted. SIGN OUT No specimen collected. All instruments, equipment, possible retained foreign bodies accounted for. Plan: 1. Primary osteoarthritis of right shoulder (M19.011) Tendinopathy of right rotator cuff (M67.911) Right shoulder pain is likely multifactorial, with contributions from both osteoarthritis and potential rotator cuff tendinopathy. Imaging reveals moderate arthritis and a narrowed acromiohumeral interval, suggestive of possible recurrent rotator cuff tear. Previous rotator cuff repair in 2012 for a 1.5 cm tear; current weakness may indicate re-tear or deconditioning. - Initiated conservative management with physical therapy to learn proper exercise techniques. - Administered cortisone injection to the right shoulder to alleviate inflammation and pain. - Advised activity modification to avoid stressors on the shoulder. - Discussed surgical options, including shoulder replacement, if conservative measures fail. 2. Cervicalgia (M54.2) Neck pain with limited range of motion and tenderness in the paraspinous region. Crepitus noted on neck movement. Pain likely contributing to trapezius discomfort. - Monitor response to shoulder treatment; if neck pain persists, consider referral to spine specialists for further evaluation. 3. Impingement syndrome of left shoulder (M75.42) Left shoulder exhibits good range of motion with some asymmetry compared to the right shoulder. No significant tenderness or weakness noted on examination. - start PT ALEX Feng Observed: 01/05/2025 11:00 AM Status: COMPLETED Source: [facility] Office Visit (LOORRM) JOSELITO CARVER ([id number]) 1960 F Date Time Provider Department 01/05/25 11:00 AM GARRISON LEE LOORRLizzie During your visit today, we recorded the following information about you: Garrison Lee PA-C 01/05/2025 11:54 AM Signed This document has been created with the use of voice recognition technology, including N42 Scribe technology. It may contain inaccuracies: misspellings, inaccurate syntax or word sense that escaped review. CHIEF COMPLAINT: Joselito Carver is a 64 year old female who presents today for new evaluation of bilateral shoulder and neck pain. HISTORY OF PRESENT ILLNESS: PAIN EVALUATION 01/04/2025 1553 01/05/2025 1058 Pain Level: -- 5 Pain Location: Shoulder-Right Other: See Comment Bilateral Shoulders R>L Description: Aching;Dull;Spasm;Tightness Dull;Aching Duration Amount of Time: -- 3 Duration Units: Hours Years Frequency: Intermittent Intermittent Intervention/Comfort measure: Medication;Reposition;Relaxation;Distractions;Massage;Other: See comment Reposition;Relaxation;Positioning;Medication;Heat Comments: Stretching Aleve, Tylenol HISTORY: Joselito is a 64-year-old female presenting with chronic shoulder pain. Joselito reports bilateral shoulder pain that has been gradually worsening over the past 3 years. The pain is described as intense muscle knots located primarily in the trapezius region and occasionally radiating to the neck. She has attempted to alleviate the pain with stretching and heat application without significant relief. She has not engaged in gym activities for the past month. Joselito denies pain in the shoulder joint area but notes tenderness in the paraspinous region and crepitus when turning her head. She also experiences pain when attempting to touch her right ear to her right shoulder, with the right side being worse than the left. She reports a history of right shoulder surgery in 2012 for a 1.5 cm tear and was informed at the time that arthritis was present in the shoulder. She notes that it took about a year for the pain to subside post-surgery. She recently completed a half marathon in [facility], without any issues related to her shoulder pain. No other musculoskeletal complaints ROS: Neck: (+) neck pain, (+) neck crepitus Musculoskeletal: (+) right shoulder pain, (+) trapezius myalgia ALLERGIES: ALLERGIES Allergen Reactions Nsaids (Non-Steroid* Other: See Comments Cannot take NSAIDS due to kidney disease PAST MEDICAL HISTORY: PAST MEDICAL HISTORY Diagnosis Date Depression Kidney disease SOCIAL HISTORY: Tobacco Use: Never EXAMINATION: GENERAL: Appears healthy, well-nourished, no deformities. ORIENTATION: Alert and oriented to person place and time HABITUS: Normal GAIT: Normal, the patient did not have trouble getting onto the exam table. right shoulder exam: skin intact; no erythema, no ecchymosis, no arm swelling moderate irritability with PROM Tenderness to palpation of rtc capsule and GH joint inferiorly active equals passive ROM- 165/70 vs 175/80 positive pain with impingement maneuvers Pain and weakness with isometric contraction of the RC; when tested against resistance- SS and subscap Bicep with normal course No atrophy of the scapula girdle intact sensation to light touch distally good radial pulse left shoulder exam: skin intact; no erythema, no ecchymosis, no arm swelling no irritability with PROM Tenderness to palpation of none active equals passive ROM- 175/80 No pain with impingement maneuvers Slight weakness with isometric contraction of the RC; when tested against resistance- SS and IS Bicep with normal course No atrophy of the scapula girdle intact sensation to light touch distally good radial pulse positive pain with neck ROM, forward resting position of C-spine, TTP globally Labs: Tests: Imaging: - Right Shoulder X-ray: Moderate glenohumeral arthritis, large humeral bone spur, narrowed acromiohumeral interval - Right Shoulder MRI: 1.5 cm rotator cuff tear (surgically repaired in 2012) IMPRESSION: Encounter Diagnosis ICD-10-CM 1. Primary osteoarthritis of right shoulder M19.011 2. Tendinopathy of right rotator cuff M67.911 3. Cervicalgia M54.2 4. Impingement syndrome of left shoulder M75.42 Large Joint Arthro/Inj: R subacromial bursa 01/05/2025 11:41 AM The procedure site was prepped in the usual sterile fashion. Site: R subacromial bursa Medications: 40 mg triamcinolone acetonide 40 mg/mL Anesthetics: 8 mL lidocaine (PF) 10 mg/mL (1 %) Outcome: Tolerated well, no immediate complications Post-injection instructions were reviewed with the patient and the patient voiced understanding of these instructions. Informed Consent Consent Obtained: Written [place] Protocol A moment to CARE was completed. SIGN IN Personnel directly involved with the procedure wore the appropriate PPE. Special Equipment: Yes Patient/Surrogate Stated/Verified: Patient name, Date of , Relevant allergies and Intended procedure TIME OUT Relevant labs, photos, and/or imaging studies have been reviewed. Consent documented and matches the intended procedure. Correct side/site marked and visible. Medications required for procedure verified. No fire risk assessment and interventions applicable. No implant(s) inserted. SIGN OUT No specimen collected. All instruments, equipment, possible retained foreign bodies accounted for. Plan: 1. Primary osteoarthritis of right shoulder (M19.011) Tendinopathy of right rotator cuff (M67.911) Right shoulder pain is likely multifactorial, with contributions from both osteoarthritis and potential rotator cuff tendinopathy. Imaging reveals moderate arthritis and a narrowed acromiohumeral interval, suggestive of possible recurrent rotator cuff tear. Previous rotator cuff repair in 2012 for a 1.5 cm tear; current weakness may indicate re-tear or deconditioning. - Initiated conservative management with physical therapy to learn proper exercise techniques. - Administered cortisone injection to the right shoulder to alleviate inflammation and pain. - Advised activity modification to avoid stressors on the shoulder. - Discussed surgical options, including shoulder replacement, if conservative measures fail. 2. Cervicalgia (M54.2) Neck pain with limited range of motion and tenderness in the paraspinous region. Crepitus noted on neck movement. Pain likely contributing to trapezius discomfort. - Monitor response to shoulder treatment; if neck pain persists, consider referral to spine specialists for further evaluation. 3. Impingement syndrome of left shoulder (M75.42) Left shoulder exhibits good range of motion with some asymmetry compared to the right shoulder. No significant tenderness or weakness noted on examination. - start PT Garrison Lee PA-C Allergies As of Date: 01/05/2025 Noted Allergy Reaction NSAIDS (NON-STEROIDAL ANTI-INFLAM*09/13/2018 14 - Other: See Comments Comments: Cannot take NSAIDS due to kidney disease Date Reviewed: 01/05/2025 Reviewed by: Keon Gonzalez RN - Fully Assessed Reason for Visit: Established Patient [175] Established Patient [175] Primary Visit Diagnosis:Primary osteoarthritis of right shoulder [M19.011] Other Visit Diagnoses:Tendinopathy of right rotator cuff [M67.911] Cervicalgia [M54.2] Impingement syndrome of left shoulder [M75.42] Order(s):XR SHOULDER ORTHO 4V AP/TRUE AP/LAT/OUTLET RIGHT [2655576] Order #: [id number] FUTURE XR SHOULDER ORTHO 4V AP/TRUE AP/LAT/OUTLET LEFT [[id number]] Order #: [id number] FUTURE CONSULT TO PHYSICAL THERAPY [9032] Order #: [id number]: 1 FUTURE Large Joint Arthro/Inj: R subacromial bursa [HTS572] Order #: [id number] [] lidocaine (PF) 10 mg/mL (1 %) 8 mL injection (XYLOCAINE)Disp: Rfl: [] triamcinolone acetonide 40 mg injection (KeNALog 40)Disp: Rfl: Prescriptions as of 01/05/2025 - meloxicam (MOBIC) 15 mg tablet Take 15 mg by mouth once daily. - atorvastatin (LIPITOR) 10 mg tablet Take 10 mg by mouth once daily. - alendronate (FOSAMAX) 70 mg tablet Take 70 mg by mouth once each week. - baclofen (LIORESAL) 10 mg tablet Take 10 mg by mouth as needed. - citalopram (CELEXA) 40 mg tablet Take 40 mg by mouth once daily. - estradiol (ESTRACE) 0.01 % (0.1 mg/gram) vaginal cream Use 1 g vaginally twice a week. - ranitidine (ZANTAC) 150 mg tablet Take 150 mg by mouth twice daily. - calcium citrate/vitamin D3 (CITRACAL + D ORAL) Take by mouth. - MULTIVITAMIN ORAL Take by mouth. - flaxseed oil (OMEGA 3 ORAL) Take by mouth. - glucosamine/chondr spears A sod (OSTEO BI-FLEX ORAL) Take by mouth. - Magnesium 250 mg tab Take 250 mg by mouth. - cyanocobalamin, vitamin B-12, (VITAMIN B-12 ORAL) Take by mouth. - ascorbic acid (VITAMIN C ORAL) Take by mouth. - CAFFEINE ORAL Take 175 mg by mouth. Problem List As Of Date: 01/05/2025 (None) Prescriptions ordered this encounter Disp Refills Start End LIDOCAINE (PF) 10 MG/ML (1 %) INJECT* 01/05/2025 01/05/2025 Route: Inj-ORTHO TRIAMCINOLONE ACETONIDE 40 MG/ML VIKKI* 01/05/2025 01/05/2025 Route: Inj-ORTHO Encounter Status:Closed by GARRISON LEE on 01/05/25 XR SHLDR 4V AP/YOUNG/LAT/OUTLE T LT Observed: 01/05/2025 10:58 AM Status: F Source: [facility] * * *Final Report* * * DATE OF EXAM: Jan 05 2025 10:58AM LZX 5604 - XR SHLDR 4V AP/YOUNG/LAT/OUTLET LT / PROCEDURE REASON: multiple diagnoses * * * * Physician Interpretation * * * * EXAMINATION / TECHNIQUE: XR SHLDR 4V AP/YOUNG/LAT/OUTLET RT, XR SHLDR 4V AP/YOUNG/LAT/OUTLET LT HISTORY: chronic shoulder pain no injury limited rom (accession [id number]), chronic shoulder pain with limited rom no injury (accession [id number]) Pain of both shoulder joints Pain of both shoulder joints COMPARISON: None RESULT: No acute fracture or osseous malalignment is identified in either shoulder. Joint spaces are maintained on the left. Mild right glenohumeral osteoarthritis. IMPRESSION: No acute bony abnormality. Mild right glenohumeral osteoarthritis. Telephone Cleaner: MARKEL Transcribe Date/Time: Jan 05 2025 12:35P Dictated by : DONALD NUNEZ MD This examination was interpreted and the report reviewed and electronically signed by: DONALD NUNEZ MD on Jan 05 2025 12:42PM EST [id number] XR SHLDR 4V AP/YOUNG/LAT/OUTLE T RT Observed: 01/05/2025 10:58 AM Status: F Source: [facility] * * *Final Report* * * DATE OF EXAM: Jan 05 2025 10:58AM LZX 5605 - XR SHLDR 4V AP/YOUNG/LAT/OUTLET RT / PROCEDURE REASON: multiple diagnoses * * * * Physician Interpretation * * * * EXAMINATION / TECHNIQUE: XR SHLDR 4V AP/YOUNG/LAT/OUTLET RT, XR SHLDR 4V AP/YOUNG/LAT/OUTLET LT HISTORY: chronic shoulder pain no injury limited rom (accession [id number]), chronic shoulder pain with limited rom no injury (accession [id number]) Pain of both shoulder joints Pain of both shoulder joints COMPARISON: None RESULT: No acute fracture or osseous malalignment is identified in either shoulder. Joint spaces are maintained on the left. Mild right glenohumeral osteoarthritis. IMPRESSION: No acute bony abnormality. Mild right glenohumeral osteoarthritis. Telephone Cleaner: PSCB Transcribe Date/Time: Jan 05 2025 12:35P Dictated by : DONALD NUNEZ MD This examination was interpreted and the report reviewed and electronically signed by: DONALD NUNEZ MD on Jan 05 2025 12:42PM EST [id number] PROGRESS Observed: 01/05/2025 10:53 AM Status: COMPLETED Source: [facility] HNO ID: [id number] Author: CARMEL FORD RT(R) Service: ? Author Type: Technologist Type: Progress Notes Filed: 01/05/2025 10:54 Note Text: Radiology Service Progress Note PATIENT NAME: Joselito Carver DATE OF SERVICE: January 05, 2025 TIME: 10:53 AM PATIENT IDENTITY VERIFICATION COMPLETED USING TWO (2) IDENTIFIERS: Name and Date of confirmed by patient verbally. FALL SCREENING: Has the patient had 2 falls in the last year or 1 fall with injury or currently using an Ambulatory Assistive Device (Walker, Cane, Wheelchair, Crutches, etc.)? No PATIENT GENDER DATA: Assigned female at . status: : No status: N/A PATIENT RELEVANT IMPLANT DATA REVIEWED: Not Applicable PATIENT PRESENTS WITH AN IMPLANTABLE OR ATTACHED STRAINER CLEANER: No RADIOLOGY DEPARTMENT: General X-ray: Exam(s) Completed: Upper Extremity X-Ray(s): Shoulder, AP / TRUE AP / AXILLARY / SUPRA OUTLET bilateral PERIPHERAL IV DATA: Not applicable SIGNED BY: RT Angela(R) January 05, 2025 10:53 AM PROGRESS Observed: 12/15/2024 10:36 AM Status: COMPLETED Source: [facility] HNO ID: [id number] Author: GARRISON LEE PA-C Service: ? Author Type: Physician Sales Property Manager Type: Progress Notes Filed: 12/15/2024 10:38 Note Text: This document has been created with the use of voice recognition technology, including Scoreoidibe technology. It may contain inaccuracies: misspellings, inaccurate syntax or word sense that escaped review. CHIEF COMPLAINT: Joselito Carver is a 64 year old female who presents today for follow up of both knees. HISTORY OF PRESENT ILLNESS: PAIN EVALUATION 12/14/2024 2226 Pain Level: 7 Pain Location: Knee-Left Description: Aching;Dull Duration Units: Months Frequency: Intermittent Intervention/Comfort measure: Medication;Cold;Distractions;Reposition;Relaxation;Positioning HISTORY: Joselito is a 64-year-old female presenting for evaluation of recurrent left knee pain. Joselito reports recurrent left knee pain, for which she received a cortisone injection in June. She experienced temporary relief but notes the pain has returned. She describes the pain as part of a rotating pattern of multiple pains, including significant shoulder and back pain. She is seeking treatment to prepare for an upcoming half marathon in [facility] on the or , with travel scheduled for the . She recently completed a half marathon this past Wednesday, which was painful, particularly the last 4 miles. She also reports chronic back pain, attributed to a previous fall from a deck, resulting in a diagnosis of a condition that comes and goes with waves of pain. She denies major neurological symptoms such as weakness or gait instability. She also reports bilateral shoulder pain, uncertain if it is due to arthritis or if it requires physical therapy or weight training. She has a history of a right hip replacement, which she describes as one of the greatest things she ever did. She expresses concern about the potential need for a knee replacement in the future and its impact on her ability to remain active, including participating in marathons and traveling. She has a family history of multiple medical conditions, including cancer, arthritis, colitis, aneurysm, Alzheimer's disease, and Parkinson's disease in her mother, and heart disease in her father. No other musculoskeletal complaints ROS: Musculoskeletal: (-) right knee pain, (+) left knee pain, (+) bilateral shoulder pain, (+) back pain ALLERGIES: ALLERGIES Allergen Reactions Nsaids (Non-Steroid* Other: [...] have trouble getting onto the exam table. - Musculoskeletal: - Left Knee: - Lacks a few degrees of extension; mild tenderness in the medial compartment; tenderness to patellar compression; stable to varus and valgus stress. - Right Knee: - Good extension; mild patellofemoral crepitus; no joint line tenderness. - Right Hip: - Stiffness noted. RADIOGRAPHS: none today IMPRESSION: Encounter Diagnosis ICD-10-CM 1. Primary osteoarthritis of left knee M17.12 2. Primary osteoarthritis of right knee M17.11 Large Joint Arthro/Inj: L knee joint 12/15/2024 10:37 AM The procedure site was prepped in the usual sterile fashion. Site: L knee joint Medications: 40 mg triamcinolone acetonide 40 mg/mL Anesthetics: 4 mL lidocaine (PF) 10 mg/mL (1 %) Outcome: Tolerated well, no immediate complications Post-injection instructions were reviewed with the patient and the patient voiced understanding of these instructions. Informed Consent Consent Obtained: Written [place] Protocol A moment to CARE was completed. SIGN IN Personnel directly involved with the procedure wore the appropriate PPE. Special Equipment: Yes Patient/Surrogate Stated/Verified: Patient name, Date of , Relevant allergies and Intended procedure TIME OUT Relevant labs, photos, and/or imaging studies have been reviewed. Consent documented and matches the intended procedure. Correct side/site marked and visible. Medications required for procedure verified. No fire risk assessment and interventions applicable. No implant(s) inserted. SIGN OUT No specimen collected. All instruments, equipment, possible retained foreign bodies accounted for. Plan: 1. Primary osteoarthritis of left knee (M17.12) Persistent pain with mild tenderness in the medial compartment and patellofemoral compression. Limited extension observed. Previous cortisone injection in June provided temporary relief. - Administered cortisone injection. - Discussed potential future knee replacement; advised to consider when pain significantly affects activities and cortisone injections are less effective. - Follow-up as needed. 2. Primary osteoarthritis of right knee (M17.11) Currently stable with no significant joint line tenderness. Good extension observed with mild patellofemoral crepitus. Previous treatment initiated with positive response. - Continue current management. - Follow-up as needed. Garrison Lee PA-C CNOV Observed: 12/15/2024 10:15 AM Status: COMPLETED Source: [facility] Office Visit (LOORRM) JOSELITO CARVER ([id number]) 1960 F Date Time Provider Department 12/15/24 10:15 AM GARRISON LEE During your visit today, we recorded the following information about you: Garirson Lee PA-C 12/15/2024 10:38 AM Signed This document has been created with the use of voice recognition technology, including AI Scribe technology. It may contain inaccuracies: misspellings, inaccurate syntax or word sense that escaped review. CHIEF COMPLAINT: Joselito Carver is a 64 year old female who presents today for follow up of both knees. HISTORY OF PRESENT ILLNESS: PAIN EVALUATION 12/14/20246 Pain Level: 7 Pain Location: Knee-Left Description: Aching;Dull Duration Units: Months Frequency: Intermittent Intervention/Comfort measure: Medication;Cold;Distractions;Reposition;Relaxation;Positioning HISTORY: Joselito is a 64-year-old female presenting for evaluation of recurrent left knee pain. Joselito reports recurrent left knee pain, for which she received a cortisone injection in June. She experienced temporary relief but notes the pain has returned. She describes the pain as part of a rotating pattern of multiple pains, including significant shoulder and back pain. She is seeking treatment to prepare for an upcoming half marathon in [facility] on the or , with travel scheduled for the . She recently completed a half marathon this past Wednesday, which was painful, particularly the last 4 miles. She also reports chronic back pain, attributed to a previous fall from a deck, resulting in a diagnosis of a condition that comes and goes with waves of pain. She denies major neurological symptoms such as weakness or gait instability. She also reports bilateral shoulder pain, uncertain if it is due to arthritis or if it requires physical therapy or weight training. She has a history of a right hip replacement, which she describes as one of the greatest things she ever did. She expresses concern about the potential need for a knee replacement in the future and its impact on her ability to remain active, including participating in marathons and traveling. She has a family history of multiple medical conditions, including cancer, arthritis, colitis, aneurysm, Alzheimer's disease, and Parkinson's disease in her mother, and heart disease in her father. No other musculoskeletal complaints ROS: Musculoskeletal: (-) right knee pain, (+) left knee pain, (+) bilateral shoulder pain, (+) back pain ALLERGIES: ALLERGIES Allergen Reactions Nsaids (Non-Steroid* Other: [...] have trouble getting onto the exam table. - Musculoskeletal: - Left Knee: - Lacks a few degrees of extension; mild tenderness in the medial compartment; tenderness to patellar compression; stable to varus and valgus stress. - Right Knee: - Good extension; mild patellofemoral crepitus; no joint line tenderness. - Right Hip: - Stiffness noted. RADIOGRAPHS: none today IMPRESSION: Encounter Diagnosis ICD-10-CM 1. Primary osteoarthritis of left knee M17.12 2. Primary osteoarthritis of right knee M17.11 Large Joint Arthro/Inj: L knee joint 12/15/2024 10:37 AM The procedure site was prepped in the usual sterile fashion. Site: L knee joint Medications: 40 mg triamcinolone acetonide 40 mg/mL Anesthetics: 4 mL lidocaine (PF) 10 mg/mL (1 %) Outcome: Tolerated well, no immediate complications Post-injection instructions were reviewed with the patient and the patient voiced understanding of these instructions. Informed Consent Consent Obtained: Written [place] Protocol A moment to CARE was completed. SIGN IN Personnel directly involved with the procedure wore the appropriate PPE. Special Equipment: Yes Patient/Surrogate Stated/Verified: Patient name, Date of , Relevant allergies and Intended procedure TIME OUT Relevant labs, photos, and/or imaging studies have been reviewed. Consent documented and matches the intended procedure. Correct side/site marked and visible. Medications required for procedure verified. No fire risk assessment and interventions applicable. No implant(s) inserted. SIGN OUT No specimen collected. All instruments, equipment, possible retained foreign bodies accounted for. Plan: 1. Primary osteoarthritis of left knee (M17.12) Persistent pain with mild tenderness in the medial compartment and patellofemoral compression. Limited extension observed. Previous cortisone injection in June provided temporary relief. - Administered cortisone injection. - Discussed potential future knee replacement; advised to consider when pain significantly affects activities and cortisone injections are less effective. - Follow-up as needed. 2. Primary osteoarthritis of right knee (M17.11) Currently stable with no significant joint line tenderness. Good extension observed with mild patellofemoral crepitus. Previous treatment initiated with positive response. - Continue current management. - Follow-up as needed. Garrison Lee PA-C Allergies As of Date: 12/15/2024 Noted Allergy Reaction NSAIDS (NON-STEROIDAL ANTI-INFLAM*09/13/2018 14 - Other: See Comments Comments: Cannot take NSAIDS due to kidney disease Date Reviewed: 12/15/2024 Reviewed by: Kelli Villarreal MA - Fully Assessed Reason for Visit: Follow Up [171] Primary Visit Diagnosis:Primary osteoarthritis of left knee [M17.12] Other Visit Diagnosis:Primary osteoarthritis of right knee [M17.11] Order(s):Large Joint Arthro/Inj: L knee joint [IZM973] Order #: [id number] [] lidocaine (PF) 10 mg/mL (1 %) 4 mL injection (XYLOCAINE)Disp: Rfl: [] triamcinolone acetonide 40 mg injection (KeNALog 40)Disp: Rfl: Prescriptions as of 12/15/2024 - meloxicam (MOBIC) 15 mg tablet Take 15 mg by mouth once daily. - atorvastatin (LIPITOR) 10 mg tablet Take 10 mg by mouth once daily. - alendronate (FOSAMAX) 70 mg tablet Take 70 mg by mouth once each week. - baclofen (LIORESAL) 10 mg tablet Take 10 mg by mouth as needed. - citalopram (CELEXA) 40 mg tablet Take 40 mg by mouth once daily. - estradiol (ESTRACE) 0.01 % (0.1 mg/gram) vaginal cream Use 1 g vaginally twice a week. - ranitidine (ZANTAC) 150 mg tablet Take 150 mg by mouth twice daily. - calcium citrate/vitamin D3 (CITRACAL + D ORAL) Take by mouth. - MULTIVITAMIN ORAL Take by mouth. - flaxseed oil (OMEGA 3 ORAL) Take by mouth. - glucosamine/chondr spears A sod (OSTEO BI-FLEX ORAL) Take by mouth. - Magnesium 250 mg tab Take 250 mg by mouth. - cyanocobalamin, vitamin B-12, (VITAMIN B-12 ORAL) Take by mouth. - ascorbic acid (VITAMIN C ORAL) Take by mouth. - CAFFEINE ORAL Take 175 mg by mouth. Problem List As Of Date: 12/15/2024 (None) Prescriptions ordered this encounter Disp Refills Start End LIDOCAINE (PF) 10 MG/ML (1 %) INJECT* 12/15/2024 12/15/2024 Route: Inj-ORTHO TRIAMCINOLONE ACETONIDE 40 MG/ML VIKKI* 12/15/2024 12/15/2024 Route: Inj-ORTHO Encounter Status:Closed by GARRISON LEE on 12/15/24 PROGRESS Observed: 07/25/2024 2:17 PM Status: COMPLETED Source: [facility] ID: [id number] Author: GRARISON LEE PA-C Service: ? Author Type: Physician Sales Property Manager Type: Progress Notes Filed: 07/25/2024 14:21 Note [...] knee joints Informed Consent Consent Obtained: Written [place] Protocol A moment to CARE was completed. [...] schedule this quite yet Garrison Lee PA-C CNOV Observed: 07/25/2024 1:45 PM Status: COMPLETED Source: [facility] Office Visit (LOORRM) JOSELITO CARVER ([id number]) 1960 F Date Time Provider Department 07/25/24 [...] knee joints Informed Consent Consent Obtained: Written [place] Protocol A moment to CARE was completed. [...] schedule this quite yet Garrison Lee PA-C Allergies As of Date: 07/25/2024 Noted Allergy Reaction NSAIDS (NON-STEROIDAL ANTI-INFLAM*09/13/2018 14 - Other: See Comments Comments: Cannot take NSAIDS due to kidney disease Date Reviewed: 07/25/2024 Reviewed by: Lauren King OCCA - Fully Assessed Reason for Visit: Established Patient [175] Follow Up [171] Knee Pain [132] Established Patient [175] Follow Up [171] Knee Pain [132] Primary Visit Diagnosis:Primary osteoarthritis of left knee [M17.12] Other Visit Diagnosis:Primary osteoarthritis of right knee [M17.11] Order(s):Large Joint Arthro/Inj: bilateral knee joints [CMN985] Order #: [id number] [] lidocaine (PF) 10 mg/mL (1 %) 4 mL injection (XYLOCAINE)Disp: Rfl: [] lidocaine (PF) 10 mg/mL (1 %) 4 mL injection (XYLOCAINE)Disp: Rfl: [] triamcinolone acetonide 40 mg injection (KeNALog 40)Disp: Rfl: [] triamcinolone acetonide 40 mg injection (KeNALog 40)Disp: Rfl: Prescriptions as of 07/25/2024 - meloxicam (MOBIC) 15 mg tablet Take 15 mg by mouth once daily. - atorvastatin (LIPITOR) 10 mg tablet Take 10 mg by mouth once daily. - alendronate (FOSAMAX) 70 mg tablet Take 70 mg by mouth once each week. - baclofen (LIORESAL) 10 mg tablet Take 10 mg by mouth as needed. - citalopram (CELEXA) 40 mg tablet Take 40 mg by mouth once daily. - estradiol (ESTRACE) 0.01 % (0.1 mg/gram) vaginal cream Use 1 g vaginally twice a week. - ranitidine (ZANTAC) 150 mg tablet Take 150 mg by mouth twice daily. - calcium citrate/vitamin D3 (CITRACAL + D ORAL) Take by mouth. - MULTIVITAMIN ORAL Take by mouth. - flaxseed oil (OMEGA 3 ORAL) Take by mouth. - glucosamine/chondr spears A sod (OSTEO BI-FLEX ORAL) Take by mouth. - Magnesium 250 mg tab Take 250 mg by mouth. - cyanocobalamin, vitamin B-12, (VITAMIN B-12 ORAL) Take by mouth. - ascorbic acid (VITAMIN C ORAL) Take by mouth. - CAFFEINE ORAL Take 175 mg by mouth. Problem List As Of Date: 07/25/2024 (None) Prescriptions ordered this encounter Disp Refills Start End LIDOCAINE (PF) 10 MG/ML (1 %) INJECT* 07/25/2024 07/25/2024 Route: Inj-ORTHO LIDOCAINE (PF) 10 MG/ML (1 %) INJECT* 07/25/2024 07/25/2024 Route: Inj-ORTHO TRIAMCINOLONE ACETONIDE 40 MG/ML VIKKI* 07/25/2024 07/25/2024 Route: Inj-ORTHO TRIAMCINOLONE ACETONIDE 40 MG/ML VIKKI* 07/25/2024 07/25/2024 Route: Inj-ORTHO Disposition: Return if symptoms worsen or fail to improve. Follow-up and Disposition History for Encounter Date Provider Department Center 07/25/2024 [id number] LEE TORRES [place] Encounter Status:Closed by GARRISON LEE on 07/25/24 ALLERGIES DATE TYPE / CODE NAME / CODE REACTION SEVERITY SOURCE 05/15/2024 Drug Allergy/9148472 02(SNOMED CT) No Known Allergies/[id number] 388(RXNORM) Unknown [facility] 09/13/2018 Drug Class/242406948 (SNOMED CT) NSAIDS (NON-STEROIDAL ANTI-INFLAMMATORY DRUG) OTHER: SEE C [facility] ENCOUNTERS ADMIT/DISCHARGE ACCOUNT NUMBER ADMITTING ENCOUNTER CLASS LOCATION SOURCE 02/21/2025/02/22/20 [id number] [facility] 02/13/2025/02/14/20 [id number] [facility] 01/24/2025/01/25/20 [id number] [facility]PH[facility]PT [facility] 01/05/2025/01/06/20 [id number] [facility]:MACY [facility] 01/05/2025/01/06/20 [id number] [facility]KRISTIN [facility] 01/05/2025 [id number] [facility]BRENNEN [facility] 12/15/2024/12/16/19 [id number] [facility] 07/25/2024/07/25/20 [id number] Ambulatory [facility] PAYERS ENCOUNTER GUARANTOR PAYER SUBSCRIBER SOURCE 02/21/2025 [place] [address]Mmo: () Primary Insurance:[employer] ClaimsPolicy Number: [id number] Date:9923-06-68SZ Miguel Angel [address], [place] [address]PY: Delbert MontesShruti: [id number] [place] [address]Qhb: () [facility] 02/21/2025 Secondary Insurance:Self PayPolicy Number: Effective Date:2025-02-21 NOT GIVENUNK [facility] 02/13/2025 Primary Insurance:[employer] PPO TPAPolicy Number: [id number] Date:1659-00-26Ysvf Name:Carmen PRIETODorothy: [id number] [place] [address] [facility] 01/24/2025 Primary Insurance:[employer] PPO TPAPolicy Number: [id number] Date:8346-75-73Asis Name:Carmen CARVERMIGUEL: [id number] [place] [address] [facility] 01/05/2025 Primary Insurance:[employer] PPO TPAPolicy Number: [id number] Date:2963-80-28Emku Name:Carmen CARVERMIGEUL: [id number] [place] [address] [facility] 01/05/2025 Primary Insurance:[employer] PPO TPAPolicy Number: [id number] Date:5414-77-54Bdsk Name:Carmen MESAVKNG: [id number] [place] [address] [facility] 01/05/2025 Primary Insurance:[employer] PPO TPAPolicy Number: [id number] Date:9830-07-63Aren Name:Carmen LEE: [id number] [place] [address] [facility] 12/15/2024 Primary Insurance:[employer] PPO TPAPolicy Number: [id number] Date:2726-31-34Nbtc Name:Carmen PRIETODorothy: [id number] [place] [address] [facility] 07/25/2024 Primary Insurance:[employer] PPO TPAPolicy Number: [id number] Date:9052-38-79Mrcb Name:Carmen LEE: [id number] [place] [address] [facility]
--- NOTE | 2025-05-31 09:44 | XR_ITS ---
The [address] [address] Patient Name: JOSELITO CARVER MRN: [id number] date: 1960 Sex: F Assigned Patient Location: LAB Current Patient Location: LAB Accession/Order Number: [id number] Exam Date: 05/31/2025 10:10 Report Date: 05/31/2025 10:52 At the request of: BENNETT MATUTE DO Procedure: XR hip LT 2V w/ pelvis CLINICAL HISTORY: Low back and left hip pain. No injury. Previous right hip replacement. LUMBAR SPINE flexion and extension views-7 views: COMPARISON: None AP, lateral (neutral, flexion and extension), both oblique and lateral coned-down views of the lumbosacral junction were obtained. There is slight thoracolumbar levoscoliotic curvature. There is no evidence of fracture. There is approximately 6 mm of anterolisthesis of L4 on L5 and 3 mm retrolisthesis basis of L5 on S1. Alignment does not change significantly with flexion or extension. There is mild disc space narrowing at L4-5 and moderate at the lumbosacral junction. There is minor endplate spurring. There is moderate mid and lower lumbar facet hypertrophy. No pars defect is identified. The sacroiliac joints are maintained and show mild sclerosis. There are no paraspinal soft tissue abnormalities. XR/XR lumbar spine 6V w bending IMPRESSION: SCOLIOSIS AND DEGENERATIVE CHANGES, DESCRIBED. LEFT HIP WITH AP PELVIS - 3 views COMPARISON: None AP view of the pelvis as well as AP and frog-lateral views of the left hip were obtained. There is a right hip prosthesis which appears intact and in appropriate position. No acute fracture or dislocation is identified. The left hip joint space is maintained and there is minimal hypertrophy. The SI joints are maintained and there is minor sclerosis. No soft tissue abnormalities are present. IMPRESSION: NO ACUTE BONY FINDINGS. Impression dictated by: Sanjana Liao M.D. 05/31/2025 10:52 AM Dictation Location: [place] [address] Electronically authenticated by: [id number] Y Date: 05/31/2025 10:52
--- NOTE | 2025-05-31 09:44 | XR_ITS ---
The [address] [address] Patient Name: JOSELITO CARVER MRN: [id number] date: 1960 Sex: F Assigned Patient Location: LAB Current Patient Location: LAB Accession/Order Number: [id number] Exam Date: 05/31/2025 10:10 Report Date: 05/31/2025 10:52 At the request of: BENNETT MATUTE DO Procedure: XR hip LT 2V w/ pelvis CLINICAL HISTORY: Low back and left hip pain. No injury. Previous right hip replacement. LUMBAR SPINE flexion and extension views-7 views: COMPARISON: None AP, lateral (neutral, flexion and extension), both oblique and lateral coned-down views of the lumbosacral junction were obtained. There is slight thoracolumbar levoscoliotic curvature. There is no evidence of fracture. There is approximately 6 mm of anterolisthesis of L4 on L5 and 3 mm retrolisthesis basis of L5 on S1. Alignment does not change significantly with flexion or extension. There is mild disc space narrowing at L4-5 and moderate at the lumbosacral junction. There is minor endplate spurring. There is moderate mid and lower lumbar facet hypertrophy. No pars defect is identified. The sacroiliac joints are maintained and show mild sclerosis. There are no paraspinal soft tissue abnormalities. XR/XR hip LT 2V w/ pelvis IMPRESSION: SCOLIOSIS AND DEGENERATIVE CHANGES, DESCRIBED. LEFT HIP WITH AP PELVIS - 3 views COMPARISON: None AP view of the pelvis as well as AP and frog-lateral views of the left hip were obtained. There is a right hip prosthesis which appears intact and in appropriate position. No acute fracture or dislocation is identified. The left hip joint space is maintained and there is minimal hypertrophy. The SI joints are maintained and there is minor sclerosis. No soft tissue abnormalities are present. IMPRESSION: NO ACUTE BONY FINDINGS. Impression dictated by: Sanjana Liao M.D. 05/31/2025 10:52 AM Dictation Location: [place] [address] Electronically authenticated by: [id number] Y Date: 05/31/2025 10:52
== END 2025-05-31 09:35 | disposition home or self-care (01) ==
LOC: LAB 09:38
PROVIDERS: PCP Internal Medicine; Visit Provider Internal Medicine
DX: M54.50 Low back pain, unspecified (principal); G89.29 Other chronic pain; M25.552 Pain in left hip; M41.9 Scoliosis, unspecified
CPT/HCPCS: 72114; 73502

== ENCOUNTER 2025-07-30 13:50 | Outpatient (OUT) | payer OTHER, SELFPAY ==
--- OUTSIDE RECORDS SUMMARY | 2025-07-23 09:30 | XMS_ITS | Encounter Summary ---
Author Organization [facility] Healthcare Address [address] [place] [address] Care Team Providers Care Educational Specialist Name Role Phone Unavailable Primary Care Provider Unavailabl e Reason for Visit * Rehabilitation - Outpatient (Routine) - AuthorizedSpecialtyDiagnoses / ProceduresReferred By ContactReferred To ContactPhysical Therapy Diagnoses Pain in left hip Spondylosis without myelopathy or radiculopathy, lumbar region Low back pain, unspecified Other chronic pain Procedures [facility] PHYSICAL THERAPY EVALUATION HIGH COMPLEX 45 MINS Piyush Bui, DO [address] [place] [address] Phone: tel: Juan Hill, PT [address] [place] [address] Phone: tel: fax: Referral IDStatusReasonStart DateExpiration DateVisits RequestedVisits [id number]/31/202512/[id number] Encounter Details DateTypeDepartmentCare Team (Latest Contact Info)Vwlqzsnzdwb22/24/2025 9:30 AM ESTTreatment [facility] [address] [place] [address] Sadaf Hyman PTA Chronic left-sided low back pain without sciatica (Primary Dx); Primary osteoarthritis of left hip Social History Tobacco UseTypesPacks/DayYears UsedDateSmoking Tobacco: Never Assessed CommentsUnknownSex and Gender InformationValueDate RecordedSex Assigned at Not on fileLegal IedFgifhm23/30/2025 3:59 PM EDTGender IdentityNot on fileSexual OrientationNot on fileTravel HistoryTravel StartTravel BpmVoibgq79/07/2025 07/16/2025documented as of this encounter Progress Notes * Sadaf Hyman, DATA ARCHITECT MANAGER - 07/23/2025 9:30 AM EST Images from the original note were not included. Physical Therapy Physical Therapy Treatment Visit Patient Name: Svetlana Zimmerman Today's Date: 07/23/2025 Encounter Diagnoses Name Primary? Chronic left-sided low back pain without sciatica Yes Primary osteoarthritis of left hip Visit number: 2 Time in: 9:35 am Time out: 10:16 am Supervised time: 41 min Total time: 41 min Subjective Svetlana Zimmerman 65 y.o. female presents to physical therapy w/ chief c/o low back and L hip pain intogroin Mechanism of Onset: no known MONTEZ or cause other than known herniated disc in back, chronic, L hip area started Current deficits: pain, weakness, decreased ROM/flexibility, impaired gait Pain: 2-3/10 amb into session, went on trip to [facility] and did okay with walking, compliant with HEPsince she has been back ~1 week. Location: L post hip/SI/buttocks Aggravating Factors: standing, walking, ADLs/self care, lifting leg, transfers/bed mobility Relieving factors: rest, heat Activities: Very active power-walks marathons and 1/2's Precautions: L post innominate rotation at IE Objective Lefs=41% impaired at IE Gait: mildly antalgic for LBP and L hip pain, decreased stride length, lacking hip ext terminal stance. L hip mobility: min loss all planes PROM + FADIR > DEVIN with pain into groin, + active SLR test for pain + leg length difference R > L with L post innominate rotation at IE L hip strength grossly 4/5 MMT pain with flex and abd Min decreased L hip flexor, adductor and hamstring flexibility Lumbar mobility: WNL min pain extension end range and rotation suad Treatment Interventions Manual Therapy:x10 min L hip LA distraction, PROM, gentle stretching xPRN MET for L post innominate rotation Therapeutic Exercise: x31 min per TOYA grid, ROM, flexibility, core/hip strength with demo and verbal cues for correct technique and to keep stretches gentle Modalities:x defer CP end of session Assessment/Plan Low back, L hip pain, decreased ROM, flexibility, core/hip strength causing impaired gait and increased difficulty with ADLs/self care, decreased QOL. Pt tolerates all TOYA well today with added clams and increased volumes per grid. Minor discomfort with SKTC today, no other adverse effects. No pain post session, will ice at home as needed. Maintained home program today with good understanding. Continue as able. Cosigned by Juan Hill PT at 07/23/2025 11:02 AM EST documented in this encounter Plan of Treatment DateTypeDepartmentCare Team (Latest Contact Info)Qxpgjoivnrf85/05/2025 9:30 AM ESTTreatment [facility] [address] [place] [address] [place] Re[place], DATA ARCHITECT MANAGER [address] [place] [address] 08/06/2025 9:30 AM ESTTreatment [facility] [address] [place] [address] [place] Reyes PTA [address] [place] [address] documented as of this encounter Visit Diagnoses Diagnosis Chronic left-sided low back pain without sciatica- Primary Primary osteoarthritis of left hip documented in this encounter
--- OUTSIDE RECORDS SUMMARY | 2025-07-25 09:30 | XMS_ITS | Encounter Summary ---
Author Organization [facility] Healthcare Address [address] [place] [address] Care Team Providers Care Key Holder Name Role Phone Unavailable Primary Care Provider Unavailabl e Reason for Visit * Rehabilitation - Outpatient (Routine) - AuthorizedSpecialtyDiagnoses / ProceduresReferred By ContactReferred To ContactPhysical Therapy Diagnoses Pain in left hip Spondylosis without myelopathy or radiculopathy, lumbar region Low back pain, unspecified Other chronic pain Procedures [facility]ER[facility] EVALUATION HIGH COMPLEX 45 MINS Piyush Bui, DO [address] [place] [address] Phone: tel: Juan Hill, PT [address] [place] [address] Phone: tel: fax: Referral IDStatusReasonStart DateExpiration DateVisits RequestedVisits [id number]/31/202512/31/[id number] Encounter Details DateTypeDepartmentCare Team (Latest Contact Info)Vjnwbmekgrt46/26/2025 9:30 AM ESTTreatment [facility] [address] [place] [address] [place] Re[place] PTA [address] [place] [address] Chronic left-sided low back pain without sciatica (Primary Dx); Primary osteoarthritis of left hip Social History Tobacco UseTypesPacks/DayYears UsedDateSmoking Tobacco: Never Assessed CommentsUnknownSex and Gender InformationValueDate RecordedSex Assigned at Not on fileLegal LdwXqvsmy10/30/2025 3:59 PM EDTGender IdentityNot on fileSexual OrientationNot on fileTravel HistoryTravel StartTravel QqzRfkdkq53/07/2025 07/16/2025documented as of this encounter Progress Notes * [place] Reyes, TEACHER SELECTION SPECIALIST - 07/25/2025 9:30 AM EST Images from the original note were not included. Physical Therapy Physical Therapy Treatment Visit Patient Name: Svetlana Zimmerman Today's Date: 07/25/2025 Encounter Diagnoses Name Primary? Chronic left-sided low back pain without sciatica Yes Primary osteoarthritis of left hip Visit number: 3 Time in: 9:30 am Time out: 10:16 am Supervised time: 46 min Total time: 46 min Subjective Svetlana Zimmerman 65 y.o. female presents to physical therapy w/ chief c/o low back and L hip pain intogroin Mechanism of Onset: no known MONTEZ or cause other than known herniated disc in back, chronic, L hip area started Current deficits: pain, weakness, decreased ROM/flexibility, impaired gait Pain: L groin pain with walking, steps up to 4-5/10 Location: L post hip/SI/buttocks Aggravating Factors: standing, [...] for L post innominate rotation Therapeutic Exercise: x36 min per TOYA grid, ROM, flexibility, core/hip strength with demo and verbal cues for correct technique and to keep stretches gentle Modalities:x defer CP end of session Assessment/Plan Low back, L hip pain, decreased ROM, flexibility, core/hip strength causing impaired gait and increased difficulty with ADLs/self care, decreased QOL. Pt demos good tolerance to session. V/c required for technique with good follow through. Pt denies pain throughout session. Continued LA distraction and manual stretching with good tolerance, noted restriction in adductors. Continue as tolerated Cosigned by Juan Hill PT at 07/25/2025 11:00 AM EST documented in this encounter Plan of Treatment DateTypeDepartmentCare Team (Latest Contact Info)Ylxabecktcx82/05/2025 9:30 AM ESTTreatment [facility] [address] [place] [address] [place] Re[place] PTA [address] [place] [address] 08/06/2025 9:30 AM ESTTreatment [facility] [address] [place] [address] Carol Reyes PTA [address] [place] [address] documented as of this encounter Visit Diagnoses Diagnosis Chronic left-sided low back pain without sciatica- Primary Primary osteoarthritis of left hip documented in this encounter
--- OUTSIDE RECORDS SUMMARY | 2025-07-30 09:00 | XMS_ITS | Encounter Summary ---
Author Organization [facility] Healthcare Address [address] [place] [address] Care Team Providers Care Rail Specialist Name Role Phone Unavailable Primary Care Provider Unavailabl e Reason for Visit * Rehabilitation - Outpatient (Routine) - AuthorizedSpecialtyDiagnoses / ProceduresReferred By ContactReferred To ContactPhysical Therapy Diagnoses Pain in left hip Spondylosis without myelopathy or radiculopathy, lumbar region Low back pain, unspecified Other chronic pain Procedures [place] PHYSICAL THERAPY EVALUATION HIGH COMPLEX 45 MINS Piyush Bui, DO [address] [place] [address] Phone: tel: Juan Hill, PT [address] [place] [address] Phone: tel: fax: Referral IDStatusReasonStart DateExpiration DateVisits RequestedVisits [id number]/31/202512/[id number] Encounter Details DateTypeDepartmentCare Team (Latest Contact Info)Zouitcrzkzs23/01/2025 9:00 AM ESTTreatment [facility] [address] [place] [address] Juan Hill, PT [address] [place], [place] [id number] Chronic left-sided low back pain without sciatica (Primary Dx); Primary osteoarthritis of left hip Social History Tobacco UseTypesPacks/DayYears UsedDateSmoking Tobacco: Never Assessed CommentsUnknownSex and Gender InformationValueDate RecordedSex Assigned at Not on fileLegal OpoKkxbyv73/30/2025 3:59 PM EDTGender IdentityNot on fileSexual OrientationNot on fileTravel HistoryTravel StartTravel MvhBclwpr83/07/2025 07/16/2025documented as of this encounter Progress Notes * Juan Roberto Hill, PT - 07/30/2025 9:00 AM EST Images from the original note were not included. Physical Therapy Physical Therapy Treatment Visit Patient Name: Svetlana Zimmerman Today's Date: 07/30/2025 Encounter Diagnoses Name Primary? Chronic left-sided low back pain without sciatica Yes Primary osteoarthritis of left hip Visit number: 4 Time in: 9:00 am Time out: 9:49 am Supervised time: 43 min Total time: 49 min Subjective Svetlana Zimmerman 65 y.o. female presents to physical therapy w/ chief c/o low back and L hip pain intogroin Mechanism of Onset: no known MONTEZ or cause other than known herniated disc in back, chronic, L hip area started Current deficits: pain, weakness, decreased ROM/flexibility, impaired gait Pain: L groin pain with walking min this morning, worse with steps up to 4-5/10 at times Location: L post hip/SI/buttocks, mostly ant/groin recently Aggravating Factors: standing, walking, ADLs/self care, lifting [...] range and rotation suad Treatment Interventions Manual Therapy: x 8 min L hip LA distraction, PROM, gentle stretching, MET for innominate rot not needed again. Therapeutic Exercise: x35 min sup, 40 total per TOYA grid, ROM, flexibility, core/hip strength with demo and verbal cues for correct technique and to keep stretches gentle. Added some reps, 2nd round of hip flexor stretches after bike. Modalities:x defer CP end of session Assessment/Plan Low back, L hip pain, decreased ROM, flexibility, core/hip strength causing impaired gait and increased difficulty with ADLs/self care, decreased QOL. Pt demos good tolerance to session. V/c required for technique with good follow through. Pt denies pain throughout session. Continued LA distraction and manual stretching with good tolerance, noted restriction in adductors. Continue as tolerated documented in this encounter Plan of Treatment DateTypeDepartmentCare Team (Latest Contact Info)Xfqwbtbakfk02/05/2025 9:30 AM ESTTreatment [facility] [address] [place] [address] [place] Re[place], ANIME DESIGNER [address] [place] [address] 08/06/2025 9:30 AM ESTTreatment [facility] [address] [place] [address] [place] Reyes, ANIME DESIGNER [address] [place] [address] documented as of this encounter Visit Diagnoses Diagnosis Chronic left-sided low back pain without sciatica- Primary Primary osteoarthritis of left hip documented in this encounter
--- OUTSIDE RECORDS SUMMARY | 2025-07-30 13:54 | XMS_ITS | Encounter Summary ---
Author Organization [facility] Address [address] [place] [address] Care Team Providers Care Plant Operations Vice President Name Role Phone Unavailable Primary Care Provider Unavailabl e Encounter Details DateTypeDepartmentCare Team (Latest Contact Info)Klnkyfhprjs00/26/2025Travel Social History Tobacco UseTypesPacks/DayYears UsedDateSmoking Tobacco: Never Assessed CommentsUnknownSex and Gender InformationValueDate RecordedSex Assigned at Not on fileLegal AgkPqxoju60/30/2025 3:59 PM EDTGender IdentityNot on fileSexual OrientationNot on fileTravel HistoryTravel StartTravel JhpMusjak05/07/2025 07/16/2025documented as of this encounter Plan of Treatment DateTypeDepartmentCare Team (Latest Contact Info)Zgxlbwnwpoa49/05/2025 9:30 AM ESTTreatment [facility] [address] [place] [address] [place] Re[place], HOUSING ASSISTANT PROPERTY MANAGER [address] [place] [address] 08/06/2025 9:30 AM ESTTreatment [facility] [address] [place] [address] [place] Re[place], HOUSING ASSISTANT PROPERTY MANAGER [address] [place] [address] documented as of this encounter Visit Diagnoses Not on filedocumented in this encounter
--- OUTSIDE RECORDS SUMMARY | 2025-07-30 13:54 | XMS_ITS | Encounter Summary ---
Author Organization [facility] Address [address] [place] [address] Care Team Providers Care Trade Show Coordinator Name Role Phone Unavailable Primary Care Provider Unavailabl e Encounter Details DateTypeDepartmentCare Team (Latest Contact Info)Qtplsgkoyjn84/19/2025Travel Social History Tobacco UseTypesPacks/DayYears UsedDateSmoking Tobacco: Never Assessed CommentsUnknownSex and Gender InformationValueDate RecordedSex Assigned at Not on fileLegal YqsDyzlwr02/30/2025 3:59 PM EDTGender IdentityNot on fileSexual OrientationNot on fileTravel HistoryTravel StartTravel UnnPrepie45/07/2025 07/16/2025documented as of this encounter Plan of Treatment DateTypeDepartmentCare Team (Latest Contact Info)Fksycgmjywr02/05/2025 9:30 AM ESTTreatment [facility] [address] [place] [address] [place] Reyes, DEPUTY COMMISSIONER [address] [place] [address] 08/06/2025 9:30 AM ESTTreatment [facility] [address] [place] [address] [place] Reyes, DEPUTY COMMISSIONER [address] [place] [address] documented as of this encounter Visit Diagnoses Not on filedocumented in this encounter
--- OUTSIDE RECORDS SUMMARY | 2025-07-30 13:54 | XMS_ITS | Encounter Summary ---
Author Organization [facility] Address [address] [place] [address] Care Team Providers Care Double Reamer Operator Name Role Phone Unavailable Primary Care Provider Unavailabl e Encounter Details DateTypeDepartmentCare Team (Latest Contact Info)Satjjqvjkkb76/01/2025Travel Social History Tobacco UseTypesPacks/DayYears UsedDateSmoking Tobacco: Never Assessed CommentsUnknownSex and Gender InformationValueDate RecordedSex Assigned at Not on fileLegal XmsVtaewa16/30/2025 3:59 PM EDTGender IdentityNot on fileSexual OrientationNot on fileTravel HistoryTravel StartTravel ApdLoenyj50/07/2025 07/16/2025documented as of this encounter Plan of Treatment DateTypeDepartmentCare Team (Latest Contact Info)Vhhrcmjccol19/05/2025 9:30 AM ESTTreatment [facility] [address] [place] [address] [place] Reyes, COSTUME DESIGNER [address] [place] [address] 08/06/2025 9:30 AM ESTTreatment [facility] [address] [place] [address] [place] Reyes, COSTUME DESIGNER [address] [place] [address] documented as of this encounter Visit Diagnoses Not on filedocumented in this encounter
--- OUTSIDE RECORDS SUMMARY | 2025-07-30 13:54 | XMS_ITS | Clinical Summary ---
Author Organization [facility] Healthcare Address [address] [facility] [place] [address] Care Team Providers Care Stocklayer Name Role Phone Unavailable Primary Care Provider Unavailabl e Active Problems ProblemNoted DateDiagnosed DateChronic left-sided low back pain without sciatica 07/02/2025Primary osteoarthritis of left hip07/02/2025 Encounters DateTypeDepartmentCare FqjoOtnurumdpnu76/01/2025 9:00 AM ESTTreatment [facility] [address] [place] [address] Juan Hill, PT Chronic left-sided low back pain without sciatica (Primary Dx); Primary osteoarthritis of left hip07/30/2025amb flowsheet [facility] [address] [place] [address] Juan Hill, PT 07/30/20254973Civqxl04/26/2025 9:30 AM ESTTreatment [facility] [address] [place] [address] [place] Re[place], MARKETING PROPOSAL COORDINATOR Chronic left-sided low back pain without sciatica (Primary Dx); Primary osteoarthritis of left hip07/25/2025amboo flowsheet [facility] [address] [place] [address] [place] Reyes, DELIA 07/25/20250411Bguucu57/24/2025 9:30 AM ESTTreatment [facility] [address] [place] [address] Sadaf Hyman, MARKETING PROPOSAL COORDINATOR Chronic left-sided low back pain without sciatica (Primary Dx); Primary osteoarthritis of left hip07/23/2025amboo flowsheet [facility] [address] [place] [address] Sadaf Hyman, MARKETING PROPOSAL COORDINATOR 07/23/20259644Pawleo81/23/7112Qsdvml83/19/4671Zcsybm69/03/2025 9:00 AM ESTEvaluation [facility] [address] [place] [address] Juan Hill, PT Chronic left-sided low back pain without sciatica (Primary Dx); Primary osteoarthritis of left hip07/02/2025Plan of Care Documentation [place] [address] [address] [place] [address] 07/02/2025amboo flowsheet [facility] [address] [place] [address] Juan Hill, PT 07/02/20256258Yvidrn74/02/2025Travelfrom Last 3 Months Social History Tobacco UseTypesPacks/DayYears UsedDateSmoking Tobacco: Never Assessed CommentsUnknownSex and Gender InformationValueDate RecordedSex Assigned at Not on fileLegal ImjFfarcp67/30/2025 3:59 PM EDTGender IdentityNot on fileSexual OrientationNot on fileTravel HistoryTravel StartTravel DphYbsqti59/07/2025 07/16/2025 Plan of Treatment DateTypeDepartmentCare Team (Latest Contact Info)Enieghtfkqb01/05/2025 9:30 AM ESTTreatment [facility] [address] [place] [address] Carol Reyes, [facility] [address] [place] [address] 08/06/2025 9:30 AM ESTTreatment [place] [address] [place] [address] Carol Reyes, MARKETING PROPOSAL COORDINATOR [address] [place] [address] [place] [address]
--- OUTSIDE RECORDS SUMMARY | 2025-07-30 13:54 | XMS_ITS | Encounter Summary ---
Author Organization [facility] Address [address] [place] [place] [address] Care Team Providers Care It Network Engineer Name Role Phone Unavailable Primary Care Provider Unavailabl e Encounter Details DateTypeDepartmentCare Team (Latest Contact Info)Aqmidxmstqm46/23/2025Travel Social History Tobacco UseTypesPacks/DayYears UsedDateSmoking Tobacco: Never Assessed CommentsUnknownSex and Gender InformationValueDate RecordedSex Assigned at Not on fileLegal BpuCikjmx24/30/2025 3:59 PM EDTGender IdentityNot on fileSexual OrientationNot on fileTravel HistoryTravel StartTravel DlpJstuso86/07/2025 07/16/2025documented as of this encounter Plan of Treatment DateTypeDepartmentCare Team (Latest Contact Info)Roimoceygtu13/05/2025 9:30 AM ESTTreatment [facility] [address] [place] [address] Carol Reyes, EMERGENCY ROOM CLERK [address] [place] [address] 08/06/2025 9:30 AM ESTTreatment [facility] [address] [place] [address] Carol Reyes, EMERGENCY ROOM CLERK [address] [place] [address] documented as of this encounter Visit Diagnoses Not on filedocumented in this encounter
--- OUTSIDE RECORDS SUMMARY | 2025-07-30 13:54 | XMS_ITS | Encounter Summary ---
Author Organization [facility] Address [address] [place] [address] Care Team Providers Care Digital Media Analyst Name Role Phone Unavailable Primary Care Provider Unavailabl e Encounter Details DateTypeDepartmentCare Team (Latest Contact Info)Fjgjqzuydih35/26/2025amboo flowsheet [facility] [address] [place] [address] Carol Reyes PTA [address] [place], [place] [id number] Social History Tobacco UseTypesPacks/DayYears UsedDateSmoking Tobacco: Never Assessed CommentsUnknownSex and Gender InformationValueDate RecordedSex Assigned at Not on fileLegal AwzVvdnxs81/30/2025 3:59 PM EDTGender IdentityNot on fileSexual OrientationNot on fileTravel HistoryTravel StartTravel QqpPegmzj07/07/2025 07/16/2025documented as of this encounter Plan of Treatment DateTypeDepartmentCare Team (Latest Contact Info)Sbckxpkhodo73/05/2025 9:30 AM ESTTreatment [facility] [address] [place] [address] Carol Reyes PTA [address] [place], [place] [id number] 08/06/2025 9:30 AM ESTTreatment [facility] [address] [place] [address] Carol Reyes PTA [address] [place] [address] documented as of this encounter Visit Diagnoses Not on filedocumented in this encounter
--- OUTSIDE RECORDS SUMMARY | 2025-07-30 13:54 | XMS_ITS | Encounter Summary ---
Author Organization [facility] Address [address] [place] [address] Care Team Providers Care Plant Electrician Name Role Phone Unavailable Primary Care Provider Unavailabl e Encounter Details DateTypeDepartmentCare Team (Latest Contact Info)Yspttdtdyov78/24/2025Travel Social History Tobacco UseTypesPacks/DayYears UsedDateSmoking Tobacco: Never Assessed CommentsUnknownSex and Gender InformationValueDate RecordedSex Assigned at Not on fileLegal JhvCogjik78/30/2025 3:59 PM EDTGender IdentityNot on fileSexual OrientationNot on fileTravel HistoryTravel StartTravel QgoTchyda15/07/2025 07/16/2025documented as of this encounter Plan of Treatment DateTypeDepartmentCare Team (Latest Contact Info)Ttwliitqpnv92/05/2025 9:30 AM ESTTreatment [facility] [address] [place] [address] Carol Reyes, PAPER TUBE GRADER [address] [place] [address] 08/06/2025 9:30 AM ESTTreatment [facility] [address] [place] [address] Carol Reyes, PAPER TUBE GRADER [address] [place] [address] documented as of this encounter Visit Diagnoses Not on filedocumented in this encounter
--- OUTSIDE RECORDS SUMMARY | 2025-07-30 13:54 | XMS_ITS | Encounter Summary ---
Author Organization [facility] Address [address] [place] [address] Care Team Providers Care Coil Winder Name Role Phone Unavailable Primary Care Provider Unavailabl e Encounter Details DateTypeDepartmentCare Team (Latest Contact Info)Vcyulnverrr69/24/2025Bamboo flowsheet [facility] [address] [place] [address] Sadaf Hyman PTA Social History Tobacco UseTypesPacks/DayYears UsedDateSmoking Tobacco: Never Assessed CommentsUnknownSex and Gender InformationValueDate RecordedSex Assigned at Not on fileLegal DpxYjduux91/30/2025 3:59 PM EDTGender IdentityNot on fileSexual OrientationNot on fileTravel HistoryTravel StartTravel OokXiuniv84/07/2025 07/16/2025documented as of this encounter Plan of Treatment DateTypeDepartmentCare Team (Latest Contact Info)Nmtwqhutwbt87/05/2025 9:30 AM ESTTreatment [facility] [address] [place] [address] Carol Reyes, LOAD TEST MECHANIC [address] [place] [address] 08/06/2025 9:30 AM ESTTreatment [facility] [address] [place] [address] Carol Reyes, LOAD TEST MECHANIC [address] [place] [address] documented as of this encounter Visit Diagnoses Not on filedocumented in this encounter
--- OUTSIDE RECORDS SUMMARY | 2025-07-30 13:54 | XMS_ITS | Encounter Summary ---
Author Organization [facility] Address [address] [place] [address] Care Team Providers Care Hall Coordinator Name Role Phone Unavailable Primary Care Provider Unavailabl e Encounter Details DateTypeDepartmentCare Team (Latest Contact Info)Slifsnqolbq63/01/2025amboo flowsheet [facility] [address] [place] [address] Juan Hill, PT [address] [place], [place] [id number] Social History Tobacco UseTypesPacks/DayYears UsedDateSmoking Tobacco: Never Assessed CommentsUnknownSex and Gender InformationValueDate RecordedSex Assigned at Not on fileLegal PasHljabq94/30/2025 3:59 PM EDTGender IdentityNot on fileSexual OrientationNot on fileTravel HistoryTravel StartTravel CilPjupid87/07/2025 07/16/2025documented as of this encounter Plan of Treatment DateTypeDe[facility] Team (Latest Contact Info)Qlagypnsgtg36/05/2025 9:30 AM ESTTreatment [facility] [address] [place] [address] Carol Reyes PTA [address] [place], [place] [id number] 08/06/2025 9:30 AM ESTTreatment [facility] [address] [place] [address] Carol Reyes, MARKETING DATA SPECIALIST [address] [place] [address] documented as of this encounter Visit Diagnoses Not on filedocumented in this encounter
--- OUTSIDE RECORDS SUMMARY | 2025-07-30 13:59 | XMS_ITS | CCD ---
Author Organization [facility] CliniSywi Care Team Providers Care Restaurant Hourly Manager Name Role Phone Unavailable Primary Care Provider UnavailANALISA Martinez Admitting Unavailable BIENVENIDO, ANALISA Attending Unavailable ALEX, DR SUSSY Perez Primary Care Unavailable BIENVENIDO, ANALISA Admitting Unavailable ANALISA FARIA Attending Unavailable ALEX, DR SUSSY Perez Primary Care Unavailable ANIKA, DR HOMERO Denton Consulting Unavailable BIENVENIDO, ANALISA Consulting Unavailable HAKIM, DR BENNETT Admitting Unavailable HAKIM, DR BENNETT Attending Unavailable ALEX, DR SUSSY Perez Primary Care Unavailable MIKA, [...] Unavailable MD Sussy Johnson Primary Care Provider [phone] MD Vlad Gallagher Attending Provider Unavailable Primary Care Provider UnavailMD Sussy Silverio Primary Care Provider MD Vlad Gallagher Attending Provider Sussy Johnson MD Primary Care Provider Obestefanía CORONADO-CMartine Attending Provider Martine Cade Admitting Unavailable Martine Cade Attending Unavailable Sussy Johnson Primary Care Unavailable Piyush Bui DO Primary Care Provider Piyush Bui DO Attending Provider [phone] ROSA, GARRISON Referring Unavailable ROSA, GARRISON Attending Unavailable ROSA, GARRISON Attending Unavailable SELF Referring Unavailable ROSA, GARRISON Attending Unavailable SELF Referring Unavailable ROSA, GARRISON Referring Unavailable ROSA, GARRISON Referring Unavailable ROSA, GARRISON Referring Unavailable ROSA, GARRISON Attending Unavailable ROSA, GARRISON Attending Unavailable Unavailable Primary Care Provider Unavailabl e Allergies Allergy ClassificationReported Allergen(s)Allergy TypeDate of OnsetReaction(s) Facility (9 sources)Non-steroidal anti-inflammatory agent; Translations: [NSAIDS (NON- STEROIDAL ANTI-INFLAMMATORY DRUG)]Drug Glouyhbfznu38-16-1734Bsnhc: See Comments [facility] Work Phone: (8 sources)Non-steroidal anti-inflammatory agentDrug Jvzccmarfqg22-40-9620Etfvk: See CommentsAshtabula General Hospital Work Phone: (2 sources)patient allergy list reviewed by nurse or physiciaPropensity to adverse jugxapcrw06-71-4361Vhylnue:[place]ial[place] Other (2 sources)Allergies ReconciledPropensity to adverse reactionsUnknoAbrazo Scottsdale CampusG2 Microsystems Other Medications Current Medications MedicationDrug Class(es)DatesSig (Normalized)Sig (Original)alendronic acid 70 mg oral tablet (16 sources)BisphosphonateStart: 68-10-8916ejvs 1 tablet by mouth every week alendronate (FOSAMAX) 70 mg tablet Take 70 mg by mouth once each week. 4 07/11/2018 ActiveComment on above:Take 70 mg by mouth once each week. Ascorbic Acid (16 sources)Vitamin Cascorbic acid (VITAMIN C ORAL) Take by mouth. Active ascorbic acid (VITAMIN C ORAL) Take by mouth. 0 ActiveComment on above:Take by mouth.atorvastatin 10 mg oral tablet (20 sources)HMG-CoA Reductase InhibitorStart: 08-08-2024 End: 70-80-9640zkpr 1 tablet by mouth once dailyAtorvastatin 10 mg tablet Active 0 .ROUTE .COMPLEX 90 May 07, 2025 8:34am Take 1 tablet by mouth once daily Complies with drug therapyStart: 07-19-2018 End: 25-82-4529wqrb 1 tablet by mouth once dailyAtorvastatin 10 mg tablet Discontinued 10 MG PO Daily May 15, 2024 12:00am August 08, 2024 2:15pmComment on above:Take 10 mg by mouth once daily. caffeine 175 mg oral tablet (16 sources)Central Nervous System Stimulant, MethylxanthineCAFFEINE ORAL Take 175 mg by mouth. ActiveComment on above:Take 175 mg by mouth.calcium citrate/vitamin D3 (CITRACAL + D ORAL) (16 sources)calcium citrate/vitamin D3 (CITRACAL + D ORAL) Take by mouth. Active calcium citrate/vitamin D3 (CITRACAL + D ORAL) Take by mouth. 0 ActiveComment on above:Take by mouth.citalopram 40 mg oral tablet (20 sources)Serotonin Reuptake InhibitorStart: 01-23-2025 End: 91-53-5790nlul 1 tablet by mouth once dailyCitalopram 40 mg tablet Active 40 MG PO Daily January 24, 2025 9:04pm Complies with drug therapyStart: 01-25-2024 End: 16-06-3156qtaz 1 tablet by mouth once dailyCitalopram 40 mg tablet Discontinued 0 .ROUTE .COMPLEX July 25, 2024 9:40am January 23, 2025 7:14am Take 1 tablet by mouth once dailyStart: 07-02-2018 End: 64-71-2546ktbc 1 tablet by mouth once dailyCitalopram 40 mg tablet Discontinued 40 MG PO Daily January 25, 2024 12:00am January 25, 2024 2:19pmComment on above:Take 40 mg by mouth once daily. cyanocobalamin, vitamin B-12, (VITAMIN B-12 ORAL) (16 sources)cyanocobalamin, vitamin B-12, (VITAMIN B-12 ORAL) Take by mouth. Activecyanocobalamin, vitamin B-12, (VITAMIN B-12 ORAL) Take by mouth. 0 Active Comment on above:Take by mouth.denosumab (2 sources)RANK Ligand InhibitorStart: 23-82-4586Kxjgsk 60MG/ML Prolia( 60MG/ML Subcutaneous ) Active -Hx Entry Subcutaneous for 0 Dr. Gallagher *Pickstrength- form from [facility] for eRX* Jun, Activeflaxseed oil (OMEGA 3 ORAL) (16 sources)flaxseed oil (OMEGA 3 ORAL) Take by mouth. Activeflaxseed oil (OMEGA 3 ORAL) Take by mouth. 0 ActiveComment on above:Take by mouth.glucosamine/chondr spears A sod (OSTEO BI-FLEX ORAL) (16 sources)glucosamine/chondr spears A sod (OSTEO BI-FLEX ORAL) Take by mouth. Activeglucosamine/chondr spears A sod (OSTEO BI-FLEX ORAL) Take by mouth. 0 Active Comment on above:Take by mouth.Lidocaine-Glycerin 2% (2 sources)Start: 23-70-2229Oiqohxgdy-Glycerin 2% lidocaine-glycerin 2%, 1 (one) kit as needed # 1, 06/30/2022, Ref. x3. Activemucous membrane as needed for 0 alternative to lidocaine 2% gel...? *Reorder from [employer] for eRx and Interaction Alerts* Jun, ActiveLidocaine-Hyalur Tu-Rnkj-Rnap (1 source)Start: 05-39-7429Bsoumkyjk-Hyalur Gv-Qixb-Infr Active 1 APPLIC TOPICAL Twice daily May 15, 2024 12:00amMagnesium (16 sources)Magnesium 250 mg tab Take 250 mg by mouth. ActiveMagnesium 250 mg tab Take 250 mg by mouth. 0 ActiveComment on above:Take 250 mg by mouth. meloxicam 15 mg oral tablet (13 sources)Nonsteroidal Anti-inflammatory Drugtake 1 tablet by mouth once daily meloxicam (MOBIC) 15 mg tablet Take 15 mg by mouth once daily. ActiveComment on above:Take 15 mg by mouth once daily.MULTIVITAMIN ORAL (16 sources)MULTIVITAMIN ORAL Take by mouth. ActiveMULTIVITAMIN ORAL Take by mouth. 0 ActiveComment on above:Take by mouth.raNITIdine 150 mg oral tablet (16 sources)Histamine-2 Receptor AntagonistStart: 48-76-3918duqd 1 tablet by mouth twice dailyranitidine (ZANTAC) 150 mg tablet Take 150 mg by mouth twice daily. 4 07/02/2018 ActiveComment on above:Take 150 mg by mouth twice daily. Completed/Discontinued Medications MedicationDrug Class(es)DatesSig (Normalized)Sig (Original)baclofen 10 mg oral tablet (20 sources)gamma-Aminobutyric Acid-ergic AgonistStart: 07-22-2018 End: 39-23-7688lhdv 1 tablet by mouth once dailyBaclofen 10 mg tablet Discontinued 10 MG PO Daily May 15, 2024 12:00am May 15, 2024 2:17pmComment on above:Take 10 mg by mouth as needed. estradiol 0.1 mg/ml vaginal cream (20 sources)EstrogenStart: 01-17-2024 End: 25-36-4201Ypgejbxxi 0.01 % (0.1 mg/gram) cream Discontinued 0 .ROUTE .COMPLEX 43 May 23, 2024 4:05pm December 04, 2024 2:02pm INSERT 1/2 GRAM VAGINALLY TWICE WEEKLYStart: 01-17-2024 End: 60-03-8497Jvvrhxhnx 0.01 % (0.1 mg/gram) cream Discontinued VAGINAL January 17, 2024 12:00am January 17, 2024 3:10pm _insert ONE-HALF GRAM VAGINALLY TWICE WEEKLY; 43 gramsStart: 14-24-7425Dslmmmb 0.01% (0.1 mg/ Estrace 0.01% (0.1 mg/, (one half) Gram pv twice weekly # 43, 08/07/2022, Ref. x2. Active vaginal pv twice weekly for 0 *Pick strength-form from [employer] for eRX* Jul, A ctiveStart: 01-21-2947ahirynhpq (ESTRACE) 0.01 % (0.1 mg/gram) vaginal cream Use 1 g vaginally twice a week. 3 06/09/2018ActiveComment on above:Use 1 g vaginally twice a week. 10 ml lidocaine hydrochloride 10 mg/ml injection (20 sources)Antiarrhythmic, Amide Local AnestheticStart: 01-05-2025 End: 74-47-9316snpswpkmn (PF) 10 mg/mL (1 %) 8 mL injection (XYLOCAINE)Start: 01-05-2025 End: mL, Injection - FOR ORTHO USE ONLY, ONCE, 1 dose, Starting on Wed01/05/25 at 1141, Until Wed01/05/25 at 1141Start: 12-15-2024 End: 96-87-5260uvdddkhsp (PF) 10 mg/mL (1 %) 4 mL injection (XYLOCAINE)Start: 12-15-2024 End: mL, Injection - FOR ORTHO USE ONLY, ONCE, 1 dose, Starting on Wed12/15/24 at 1037, Until Wed12/15/24 at 1037Start: 07-25-2024 End: 05-73-5654tsggwksfx (PF) 10 mg/mL (1 %) 4 mL injection (XYLOCAINE)Start: 07-25-2024 End: mL, Injection - FOR ORTHO USE ONLY, ONCE, 1 dose, Starting on Wed07/25/24 at 1419, Until Wed07/25/24 at 1419Start: 70-31-5230Vpihpfbkr Hcl 2 % jelly in applicator Active 1 APPLIC TOPICAL Daily May 15, 2024 12:00am Complies with drug therapyStart: 05-15-2024 End: 73-78-6625Fsfjkntpf-Hyalur Md-Wfhq-Zsnf 2 % gel Discontinued 1 APPLIC TOPICAL Twice daily as needed 2023 12:00am May 15, 2024 3:54pmStart: 03-03-2023 End: 24-88-4779wkmwgjgds (PF) 10 mg/mL (1 %) 4 mL injection (XYLOCAINE)Start: 06-09-2022 End: 95-32-4064fcmxuunbr (PF) 20 mg/mL (2 %) 4 mL injection (XYLOCAINE)Start: 12-01-2021 End: 88-16-8552ohzsiyxqz (PF) 10 mg/mL (1 %) 4 mL injection (XYLOCAINE) predniSONE 20 mg oral tablet (6 sources)Start: 05-04-2025 End: 81-95-3987Yvbehptpol 20 mg tablet Discontinued 20 MG PO As Directed 06 05May 04, 2025 10:07am May 15, 2025 11:45am 1 tab tid w/ food x 1 days, then bid w/ food x 2 days, then qd w/ food x 3 days1 ml triamcinolone acetonide 40 mg/ml injection (11 sources)CorticosteroidStart: 01-05-2025 End: 97-11-5024cwrcgmcugmhec acetonide 40 mg injection (KeNALog 40)Start: 01-05-2025 End: 36-49-490179 mg, Injection - FOR ORTHO USE ONLY, ONCE, 1 dose, Starting on Wed01/05/25 at 1141, Until Wed01/05/25 at 1141Start: 12-15-2024 End: 74-54-3868tttscfvehmrul acetonide 40 mg injection (KeNALog 40)Start: 12-15-2024 End: 68-81-401889 mg, Injection - FOR ORTHO USE ONLY, ONCE, 1 dose, Starting on Wed12/15/24 at 1037, Until Wed12/15/24 at 1037Start: 07-25-2024 End: 53-91-8409ysbejsrguqyxh acetonide 40 mg injection (KeNALog 40)Start: 07-25-2024 End: 75-34-163442 mg, Injection - FOR ORTHO USE ONLY, ONCE, 1 dose, Starting on Wed07/25/24 at 1419, Until Wed07/25/24 at 1419Start: 03-03-2023 End: 16-96-7729fkyvrxqprgwbo acetonide 40 mg injection (KeNALog 40)Start: 06-09-2022 End: 30-89-0498nmxxqifcalxmg acetonide 40 mg injection (KeNALog 40)Start: 12-01-2021 End: 18-10-6299ehepipvxvgqka acetonide 40 mg injection (KENALOG 40) Problems Active Problems Problem ClassificationProblemDateDocumented DateEpisodic/ChronicDisorders of lipid metabolism (10 sources)Hyperlipidemia; Translations: [Hyperlipidemia, unspecified] 27-70-2605YjiipybCzajmzxhug disorders (10 sources)Gastroesophageal reflux disease; Translations: [Gastro-esophageal reflux disease without esophagitis]91-11-9235PoztwpqQvpdzrdtprddl and screening for infectious disease (1 source)Raised antibody titer; Translations: [Raised antibody titer]Onset: 67-30-9510LjhtyoiqGylaydg (2 sources)Onychomycosis; Translations: [Tinea unguium]EpisodicOsteoarthritis (19 sources)Osteoarthritis of left knee joint; Translations: [Unilateral primary osteoarthritis, left knee]Onset: 72-74-8301OwohbmlLejwwuutmwmp (14 sources)Age-related osteoporosis without current pathological fracture; Translations: [Osteoporosis]Onset: 80-98-4575BpkypqnMrcct aftercare (1 source)Other care home (current) drug therapy; Translations: [OTH PECAN GATHERER CURRENT DRUG THERAPY]Onset: 22-05-4319AnntvvnzChnbv connective tissue disease (2 sources)Muscle pain; Translations: [Myalgia, unspecified site]EpisodicOther connective tissue disease (1 source)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; Translations: [Iliotibial band syndrome, left leg]44-57-2713NshoaoueYklfi connective tissue disease (3 sources)Disorder of rotator cuff; Translations: [Unspecified disorder of synovium and tendon, right shoulder]25-53-1458PlnaydszWvogc connective tissue disease (3 sources)Impingement syndrome of left shoulder region; Translations: [Impingement syndrome of left shoulder]54-23-0786XgnedgvlOwuvg connective tissue disease (6 sources)Rotator cuff impingement syndrome; Translations: [Impingement syndrome of left shoulder]67-00-3933VikbkgxqBihbh non-traumatic joint disorders (9 sources)Pain of right shoulder joint; Translations: [Pain in right shoulder] Onset: 135651-25-7954ZnilnefzTweds non-traumatic joint disorders (5 sources)Bilateral shoulder joint pain; Translations: [Pain in right shoulder] 67-53-9877XjsmdgjbCsduk non-traumatic joint disorders (2 sources)Hip pain; Translations: [Pain in left hip]32-25-4533IbtuhkuqYnona screening for suspected conditions (not mental disorders or infectious disease) (16 sources)Patient encounter status; Translations: [Encounter for screening for malignant neoplasm of colon]41-89-4464RuhfjdobLytcrtvvzne; intervertebral disc disorders; other back problems (7 sources)Lumbar spondylosis; Translations: [Spondylosis without myelopathy or radiculopathy, lumbar region]12-00-6052ZaexcnnCfyyqaezofk; intervertebral disc disorders; other back problems (14 sources)Cervicalgia; Translations: [Neck pain]Onset: 49-91-8427Uavofnaw Unclassified (4 sources)Encounter for health counseling related to travel; Translations: [ENC FOR HEALTH ORACLE FUSION DEVELOPER RELTD TRAVEL]Onset: 22-75-5349Byuurdhcljpe (1 source)CONTACT W/AND (SUSP) EXPOS COVID-19; Translations: [CONTACT W/AND (SUSP) EXPOS COVID-19]Onset: 18-67-1093Odwurpmgobay (1 source)Established PatientOnset: 06-22-2025 Past or Other Problems Problem ClassificationProblemDateDocumented DateEpisodic/ChronicOther connective tissue disease (4 sources)Pain in right foot; Translations: [PAIN IN RIGHT FOOT]Onset: 77-16-3484VttuaymeZyyxz connective tissue disease (1 source)Myalgia, unspecified site; Translations: [MYALGIA UNSPECIFIED SITE] Onset: 81-84-5033AdezhlxaBrdud connective tissue disease (1 source)Unspecified disorder of synovium and tendon, right shoulder; Translations: [Tendinopathy of right rotator cuff]Onset: 65-68-7257EadismbbLhtok connective tissue disease (1 source)Impingement syndrome of left shoulder; Translations: [Impingement syndrome of left shoulder]Onset: 10-39-1534VnfyypiuCqncy non-traumatic joint disorders (1 source)Pain in right ankle and joints of right foot; Translations: [PAIN IN RIGHT ANKLE]Onset: 82-81-3020VrlfjogbLuyiv non-traumatic joint disorders (5 sources)Pain in left shoulder; Translations: [Left shoulder pain]Onset: 718727-14-5367KwpdkxgtZcnqw non-traumatic joint disorders (2 sources)Pain in right shoulder; Translations: [Pain in joint of right shoulder]Onset: 99-42-4426ZpqggdshCcvbwfenzapj (2 sources)Low back pain with radiation; Translations: [Low back pain with radiation] Results Test NameValueInterpretationReference RangeFacilityCNOVon 44-65-2094SUDBKlxzmb Visit (LOORRM) SVETLANA CARVER ([id number]) 1960 F Date Time Provider Department 06/22/25 2:00 PM GARRISON LEE LOORRLizzie During your visit today, we recorded the following information about you: Garrison Lee PA-C 06/25/2025 10:26 AM Signed PROCEDURE NOTE: Svetlana Carver Medical Record: [id number] Primary osteoarthritis of left knee (primary encounter diagnosis) Large Joint Arthro/Inj: L knee joint 06/22/2025 10:26 AM The procedure site was prepped in the usual sterile fashion. Site: L knee joint Medications: 40 mg triamcinolone acetonide 40 mg/mL Anesthetics: 4 mL lidocaine (PF) 10 mg/mL (1 %) Outcome: Tolerated well, no immediate complications Post-injection instructions were reviewed with the patient and the patient voiced understanding of these instructions. Informed Consent Consent Obtained: Written [place] Protocol A moment to CARE was completed. [...] assessment and interventions applicable. No implant(s) inserted. Garrison Lee PA-C Referring Provider: SELF [200] Allergies As of Date: 06/22/2025 Noted Allergy Reaction NSAIDS (NON-STEROIDAL ANTI-INFLAM*09/13/2018 14 - Other: See Comments Comments: Cannot take NSAIDS due to kidney disease Date Reviewed: 06/22/2025 Reviewed by: Lauren King OCCA - Fully Assessed Reason for Visit: Established Patient [175] Knee Pain [132] Injections [199] Primary Visit Diagnosis:Primary osteoarthritis of left knee [M17.12] Order(s):Large Joint Arthro/Inj: L knee joint [QRX111] Order #: [id number] [] lidocaine (PF) 10 mg/mL (1 %) 4 mL injection (XYLOCAINE)Disp: Rfl: [] triamcinolone acetonide 40 mg injection (KeNALog 40)Disp: Rfl: Prescriptions as of 06/25/2025 - meloxicam (MOBIC) 15 mg tablet Take [...] mg by mouth. Problem List As Of Date 06/22/2025 Noted Resolved Pain in joint of right shoulder [M25.511] 01/05/2025 Prescriptions ordered this encounter Disp Refills Start End LIDOCAINE (PF) 10 MG/ML (1 %) INJECT* 06/22/2025 06/22/2025 Route: Inj-ORTHO TRIAMCINOLONE ACETONIDE 40 MG/ML VIKKI* 06/22/2025 06/22/2025 Route: Inj-ORTHO Encounter Status:Closed by GARRISON LEE on 06/25/25[facility] 63-47-7544GXQROoqver Visit (LOORRM) SVETLANA CARVER ([id number]) 1960 F Date Time Provider Department 06/19/25 10:00 AM GARRISON LEE LOORRLizzie During your visit today, we recorded the following information about you: Garrison Lee PA-C 06/19/2025 10:13 AM Signed This document has been created with the use of voice recognition technology, including [employer] Scribe technology. It may contain inaccuracies: misspellings, inaccurate syntax or word sense that escaped review. CHIEF COMPLAINT: Svetlana Carver is a 64 year old female who presents today for follow up of right shoulder. HISTORY OF PRESENT ILLNESS: PAIN EVALUATION 06/19/2025 0702 06/19/2025 0951 Pain Level: 7 8 Pain Location: Shoulder-Right Other: See Comment Bilateral Shoulders R>L Description: Aching;Radiating;Shooting;Spasm;Throbbing Dull;Aching;Other: See comment pulling, pinching Duration Amount of Time: 1 1 Duration Units: Weeks Weeks Frequency: Intermittent Continuous Intervention/Comfort measure: Medication;Reposition;Relaxation;Heat;Massage;Positioning Reposition;Relaxation;Positioning;Medication;Heat Comments: Always a background pain. More painful with motion or at night. Etolodolac(Hip injury rx) HISTORY: The Svetlana is a 64-year-old female with shoulder arthritis presenting for evaluation of recurrent shoulder pain. The Svetlana reports a flare of shoulder pain that she describes as worse than usual. She was previously receiving physical therapy, which she stopped in January due to distance. She has since been performing home exercises about twice weekly, but not as aggressively as during formal therapy. She reports pain with reaching back and with overhead movement. She has been trying to do gentle stretching despite the pain. She has a history of shoulder surgery in 2012. She received a cortisone injection 5 months ago, which provided significant relief. She reports difficulty sleeping due to shoulder pain, particularly when she rolls onto the affected side at night. She is currently taking etodolac once daily instead of the prescribed twice daily due to a rash she developed when taking the higher dose. The rash has resolved with the reduced dose. ROS: REVIEW OF SYSTEMS: Constitutional: patient denies [...] or anxiety issues SOCIAL HISTORY: Tobacco Use: Never FAMILY HISTORY: History reviewed. No pertinent family history. Constitutional: (+) sleep disturbance Musculoskeletal: (+) shoulder pain, (+) hip pain, (+) knee pain, (+) low back pain Skin: (-) rash Neurological: (-) radiating leg pain ALLERGIES: ALLERGIES Allergen Reactions Nsaids (Non-Steroid* [...] irritability with PROM Tenderness to palpation of tuberosities, not tender to the anterior GH joint active equals passive ROM- 170/70 pain with impingement maneuvers Pain and weakness with isometric contraction of the RC; when tested against resistance- SS, IS, subscap Bicep with normal course No atrophy of the scapula girdle intact sensation to light touch distally good radial pulse no pain with neck ROM Imaging: - none new today Radiographs personally reviewed IMPRESSION: Encounter Diagnosis ICD-10-CM 1. Primary osteoarthritis of right shoulder M19.011 2. Tendinopathy of right rotator cuff M67.911 Large Joint Arthro/Inj: R subacromial bursa 06/19/2025 10:13 AM The procedure site was prepped in the usual sterile fashion. Site: R subacromial bursa Medications: 40 mg triamcinolone acetonide 40 mg/mL Anesthetics: 8 mL lidocaine (PF) 10 mg/mL (1 %) Outcome: Tolerated well, no immediate complications Post-injection instructions were reviewed with the patient and the patient voiced understanding of these instructions. Informed Consent Consent Obtained: [place] (more content not included)...NormalAultman Alliance Community HospitalBasophils Auto (Bld) [#/Vol]Ordered By: Piyush Bui on 05-12-2025 Basophils (Bld) [#/Vol]0.1 10 3/uL0.0-0.1FEast [facility] Basophils/100 WBC Auto (Bld)Ordered By: Piyush Bui on 77-06-7166Xtgjwrobb/100 WBC (Bld)0.4 %0.2-2.0[facility] HospitalCholesterol in LDL Calc [Mass/Vol]Ordered By: Piyush Bui on 30-05-8287Uwhdcnljmdq in LDL [Mass/Vol] 98.0 mg/dLMercy Health Allen HospitalComment on above:<100 mg/dl JVRNHOR854-891 mg/dl NEAR OR ABOVE AZEUNXZ847-060 mg/dl BORDERLINE FITI742-003 mg/dl HIGH>190 mg/dl VERY HIGHCholesterol in VLDL Calc [Mass/Vol]Ordered By: Piyush Bui on 99-22-7804Wcpuuqdwmyz in VLDL [Mass/Vol]19.6 mg/dLMercy Health Allen HospitalEosinophils/100 WBC Auto (Bld)Ordered By: Piyush Bui on 66-40-4355Vvanruhocgf/100 WBC (Bld)0.6 %Low0.9-7.0[facility] HospitalErythrocyte distribution width Auto (RBC) [Ratio]Ordered By: Piyush Bui on 82-25-1458Gixauochjnd distribution width (RBC) [Ratio]12.4 %11.0-15.0 [facility] HospitalGlobulin Calc (S) [Mass/Vol]Ordered By: Piyush Bui on 66-82-6619Xtvfzbiv (S) [Mass/Vol]4.5 g/dLMercy Health Allen HospitalGlomerular filtration rate (GFR) estimation in non- AmericanOrdered By: Piyush Bui on 93-49-5389ONP/1.73 sq M.predicted among non-blacks MDRD (S/P/Bld) [Vol rate/Area]mL/min/{1.73_m2}>=60 mL/min/1.73m 2 [facility] HospitalHematocrit Auto (Bld) [Volume fraction]Ordered By: Piyush Bui on 96-97-9755Oxgdggrbpv (Bld) [Volume fraction]42.1 %36.0-48.0 [facility] HospitalHemoglobin [Mass/volume] in BloodOrdered By: Piyush Bui on 63-56-6135Yilduwztql (Bld) [Mass/Vol]13.9 g/dL12.0-16.0 [facility] HospitalLaboratory - Chemistry and Chemistry - challengeOrdered By: Piyush Bui on 55-47-0390Voghjbl [Mass/Vol]3.5 g/dL 3.4-5.0[facility] HospitalALP [Catalytic activity/Vol]59 U/L46-116 [facility] HospitalALT [Catalytic activity/Vol]31 U/L14-59 [facility] HospitalAST [Catalytic activity/Vol]24 U/L15-37 [facility] HospitalBilirubin [Mass/Vol]0.2 mg/dL0.2-1.0[facility] HospitalCalcium [Mass/Vol]9.1 mg/dL8.5-10.1FEast [facility] Regional HospitalChloride [Moles/Vol]103 mmol/N84-758RdijprubjMercy Health Allen HospitalCholesterol [Mass/Vol]187 mg/dL<=200[facility] Cholesterol in HDL [Mass/Vol]70 mg/gHSbgp01-27UnnbrdgjoMercy Health Allen Hospital Comment on above:> or =60 mg/dl - LOW CARDIOVASCULAR RISK<40 mg/dl - HIGH CARDIOVASCULAR RISKCO2 [Moles/Vol]28.6 mmol/L21.0-32.0[facility] HospitalCreatinine [Mass/Vol]0.72 mg/dL0.55-1.02[facility] GFR/1.73 sq M.predicted MDRD (S/P/Bld) [Vol rate/Area]mL/min/{1.73_m2}>=60 mL/min/1.73m 2FEast Ohio Regional HospitalGlucose [Mass/Vol]84 mg/qF86-741 [facility] HospitalPotassium [Moles/Vol]4.1 mmol/L3.5-5.1FEast [facility] Regional HospitalProtein [Mass/Vol]8.0 g/dL6.4-8.2FParkview Healthodium [Moles/Vol]139 mmol/M062-968MiqajwphtMercy Health Allen HospitalTriglyceride [Mass/Vol]98 mg/dL<=150Mer[facility] Allen HospitalTSH Qn1.935 m[IU]/L0.358-3.740Mer[facility] HospitalUrea nitrogen [Mass/Vol]18.0 mg/dL7.0-18.0[facility] HospitalUrea nitrogen/Creatinine [Mass ratio]25.0 mg/mgMercy Health Allen Hospital Laboratory - Hematology and Cell countsOrdered By: Piyush Bui on 05-12-2025 Immature granulocytes/100 WBC (Bld)0.4 %0.0-0.5FEast [facility] Leukocytes [#/volume] corrected for nucleated erythrocytes in Blood by Automated counOrdered By: Piyush Bui on 59-09-3207KDN corrected for nucl RBC Auto (Bld) [#/Vol]11.8 10 3/uLHigh4.0-11.0[facility] Lymphocytes Auto (Bld) [#/Vol]Ordered By: Piyush Bui on 80-48-0640Cdxjgakbumf (Bld) [#/Vol]2.9 10 3/uL1.2-3.8[facility] HospitalLymphocytes/100 WBC Auto (Bld)Ordered By: Piyush Bui on 90-10-5637Pnrsejutavz/100 WBC (Bld) 24.8 %20.5-60.0[facility] Auto (RBC) [Entitic mass] Ordered By: Piyush Bui on 16-87-7619RHL (RBC) [Entitic mass]31.6 pg26.7-34.0 [facility] Auto (RBC) [Mass/Vol]Ordered By: Piyush Bui on 18-28-5007EOOZ (RBC) [Mass/Vol]33.0 g/dL29.9-35.2FMorrow County HospitalV Auto (RBC) [Entitic vol]Ordered By: Piyush Bui on 02-27-2712OFT (RBC) [Entitic vol]95.7 fL81.0-99.0[facility] HospitalMicroalbumin [Mass/volume] in UrineOrdered By: Piyush Bui on 05-12-2025 Albumin DL <= 20 mg/L (U) [Mass/Vol]mg/dL<=30.0[facility] Monocytes Auto (Bld) [#/Vol]Ordered By: Piyush Bui on 31-31-5894Rvtvyfzse (Bld) [#/Vol]1.3 10 3/uLHigh0.3-0.8[facility] Monocytes/100 WBC Auto (Bld)Ordered By: Piyush Bui on 19-90-4216Anmqugbrh/100 WBC (Bld)11.3 %1.7-12.0[facility] HospitalNeutrophils Auto (Bld) [#/Vol]Ordered By: Piyush Bui on 52-52-3910Jcjfsltqdjm (Bld) [#/Vol]7.4 10 3/uLHigh1.4-6.5FEast Ohio Regional HospitalNeutrophils/100 WBC Auto (Bld) Ordered By: Piyush Bui on 32-85-7453Dqrjvkhyzvi/100 WBC (Bld)62.5 %43.0-75.0 [facility] HospitalNo Panel InformationOrdered By: Piyush Bui on 51-12-1867Hkice Random Pxfdoowngk17.76 mg/dLLow20.00-300.00[facility] HospitalEosinophils # (Auto)0.1 10 3/uL0.0-0.7FEast Ohio Regional HospitalImmature Granulocyte # (Auto)0.05 10 3/uLHigh0.00-0.03[facility] HospitalPlatelet mean volume Auto (Bld) [Entitic vol]Ordered By: Piyush Bui on 62-03-8406Ludopfjl mean volume (Bld) [Entitic vol]9.9 fL9.5-13.5 [facility] HospitalPlatelets Auto (Bld) [#/Vol]Ordered By: Piyush Bui on 15-32-3533Sorjclrww (Bld) [#/Vol]274 10 3/bP372-146GwcahogfnMercy Health Allen HospitalRBC Auto (Bld) [#/Vol]Ordered By: Piyush Bui on 56-97-1479PGW (Bld) [#/Vol]4.40 10 6/uL4.20-5.40[facility] Healtherum or plasma albumin/globulin mass ratioOrdered By: Piyush Bui on 29-94-6156Rlehvod/Globulin [Mass ratio]0.8 {ratio}[facility] Healtherum or plasma anion gap determinationOrdered By: Piyush Hao on 85-04-1479Izzqo gap [Moles/Vol]11.5 mmol/LFParkview Healtherum or plasma total cholesterol/high density lipoprotein (HDL) cholesterol mass rat Ordered By: Piyush Hao on 23-39-3281Arlixkxiqer.total/Cholesterol in HDL [Mass ratio]2.7 {ratio}[facility] HospitalComment on above:3.3 - 4.4 LOW RISK4.4 - 7.1 AVERAGE RISK7.1 - 11.0 MODERATE RISK>11.0 HIGH RISKAlanine aminotransferase [Enzymatic activity/volume] in Serum or PlasmaOrdered By: Martine Cade on 43-77-3631XIP [Catalytic activity/Vol]22 U/L7-52[facility] HospitalComment on above:Performed By: #### CBC, ESR, ADDONUAPLUS, CMP, PHOS, MG #### [facility] [address] [place] [address] [place] #### FAYE, ANTIR, C3, CH50, CHROMATIN, ADNA, C4, HISAB #### [facility] ,Albumin [Mass/volume] in Serum or Plasma by Bromocresol green (BCG) dye binding methoOrdered By: Martine Cade on 11-27-3404Wjjopvy BCG dye [Mass/Vol]4.6 g/dL 3.5-5.7FEast Ohio Regional HospitalAlkaline phosphatase [Enzymatic activity/volume] in Serum or PlasmaOrdered By: Martine Cade on 16-04-6089OHT [Catalytic activity/Vol]59 U/V30-164OezovpnijMercy Health Allen HospitalComment on above:Performed By: #### CBC, ESR, ADDONUAPLUS, CMP, PHOS, MG #### [facility] [address] [place] [address] [place] #### FAYE, ANTIR, C3, CH50, CHROMATIN, ADNA, C4, HISAB #### [facility] ,Anti-RNPon 60-45-0110Vatf-RNP1.9Stchey5.0-0.9[facility] Comment on above:Performed By: #### CBC, ESR, ADDONUAPLUS, CMP, PHOS, MG #### [place] [address] [place] #### FAYE, ANTIR, C3, CH50, CHROMATIN, ADNA, C4, HISAB #### [facility] ,Anti-Faye Antibodieson 86-33-3093Mdam-Faye Antibodies3.3Sobggt9.0-0.9[facility] Physician GroupComment on above:Performed By: #### CBC, ESR, ADDONUAPLUS, CMP, PHOS, MG #### [place] [address] [place] #### FAEY, ANTIR, C3, CH50, CHROMATIN, ADNA, C4, HISAB #### [facility] ,Anti-dsDNA(DBL)Abon 14-37-9291Hfgi-dsDNA(DBL)Ab<1Kravne6-5Teh [facility] Physician GroupComment on above:Result Comment: Negative <5 Equivocal 5 - 9 Positive >9 Performed at: - [facility] [address] [id number] Bobbin Disker: Haresh Obregon PhD, Phone: [phone] By: #### CBC, ESR, ADDONUAPLUS, CMP, PHOS, MG #### [facility] [address] [place] [address] [place] #### FAYE, ANTIR, C3, CH50, CHROMATIN, ADNA, C4, HISAB #### [facility] ,Appearance of UrineOrdered By: Martine Cade on 88-25-8787Gpnzpcztgd (U)[facility] HospitalComment on above:Order Comment: Name Collection Type:: Clean-Voided MidstreamPerformed By: #### CBC, ESR, ADDONUAPLUS, CMP, PHOS, MG #### [facility] [address] [place] [address] [place] #### FAYE, ANTIR, C3, CH50, CHROMATIN, ADNA, C4, HISAB #### [facility] ,Aspartate aminotransferase [Enzymatic activity/volume] in Serum or Plasma Ordered By: Martine Cade on 41-97-0885MRS [Catalytic activity/Vol]26 U/L13-39 [facility] HospitalComment on above:Performed By: #### CBC, ESR, ADDONUAPLUS, CMP, PHOS, MG #### [facility] [address] [place] [address] #### FAYE, ANTIR, C3, CH50, CHROMATIN, ADNA, C4, HISAB #### [facility] ,Bacteria [Presence] in Urine by AutomatedOrdered By: Martine Cade on 52-10-7278Sacqmjai Auto Ql (U)None seen [HPF]None SeenMercy Health Allen HospitalBasophils [#/volume] in Blood by Automated countOrdered By: Martine Cade on 88-38-3639Isuynyrsn (Bld) [#/Vol]0.1 10*3/uL0.0-0.2FEast Ohio Regional HospitalComment on above:Performed By: #### CBC, ESR, ADDONUAPLUS, CMP, PHOS, MG #### [facility] [address] [place] [address] #### FAYE, ANTIR, C3, CH50, CHROMATIN, ADNA, C4, HISAB #### [facility] ,Basophils/100 leukocytes in Blood by Automated countOrdered By: Martine Cade on 18-46-9526Rvyfldywo/100 WBC (Bld)1.0 %.[facility] Comment on above:Performed By: #### CBC, ESR, ADDONUAPLUS, CMP, PHOS, MG #### [facility] [address] [place] [address] [place] #### FAYE, ANTIR, C3, CH50, CHROMATIN, ADNA, C4, HISAB #### [facility] ,Bilirubin Test strip Ql (U)Ordered By: Martine Cade on 57-01-4020Nxppjozhi Ql (U)NegativeNegativeMercy Health Allen HospitalBilirubin.total [Mass/volume] in Serum or PlasmaOrdered By: Martine Cade on 02-21-2025 Bilirubin [Mass/Vol]0.4 mg/dL0.3-1.0[facility] HospitalComment on above:Performed By: #### CBC, ESR, ADDONUAPLUS, CMP, PHOS, MG #### [facility] [address] [place] [address] #### FAYE, ANTIR, C3, CH50, CHROMATIN, ADNA, C4, HISAB #### [facility] ,Calcium [Mass/volume] in Serum or PlasmaOrdered By: Martine Cade on 90-71-7495Enhddjs [Mass/Vol]10.0 mg/dL8.6-10.3FEast [facility] Comment on above:Performed By: #### CBC, ESR, ADDONUAPLUS, CMP, PHOS, MG #### [place] [address] [place] #### FAYE, ANTIR, C3, CH50, CHROMATIN, ADNA, C4, HISAB #### [facility] ,Carbon dioxide, total [Moles/volume] in Serum or PlasmaOrdered By: Martine Cade on 42-44-9677IA6 [Moles/Vol]29.4 mmol/L21.0-31.0[facility] HospitalComment on above:Performed By: #### CBC, ESR, ADDONUAPLUS, CMP, PHOS, MG #### [facility] [address] [place] [address] [place] #### FAYE, ANTIR, C3, CH50, CHROMATIN, ADNA, C4, HISAB #### [facility] ,Chloride [Moles/volume] in Serum or PlasmaOrdered By: Martine Cade on 98-85-4025Gjsshyzf [Moles/Vol]105 mmol/G99-091WwlrurxvjMercy Health Allen Hospital Comment on above:Performed By: #### CBC, ESR, ADDONUAPLUS, CMP, PHOS, MG #### [address] #### FAYE, ANTIR, C3, CH50, CHROMATIN, ADNA, C4, HISAB #### [facility] ,Chromatin Antibodyon 55-21-1865Twyuqypzo Antibody1.8Cqmxit4.0-0.9The [facility] Physician GroupComment on above:Result Comment: PERFORMED BY: [place] [address] PATHOLOGIST LINK MACHINE OPERATOR MERLINE WISE M.D.Performed By: #### CBC, ESR, ADDONUAPLUS, CMP, PHOS, MG #### [address] #### FAYE, ANTIR, C3, CH50, CHROMATIN, ADNA, C4, HISAB #### [facility] ,Color of Urine by AutoOrdered By: Martine Cade on 72-31-6763Eaqqb (U)Yellow [facility] Doctors HospitalComment on above:Order Comment: Name Collection Type:: Clean-Voided MidstreamPerformed By: #### CBC, ESR, ADDONUAPLUS, CMP, PHOS, MG #### [place] [address] [place] #### FAYE, ANTIR, C3, CH50, CHROMATIN, ADNA, C4, HISAB #### [facility] ,Complement C3on 41-17-5914Fqurhjmupn C3164 mg/tXLksnfi75-328Stg [facility] GroupComment on above:Result Comment: Performed at: [facility] [id number] Bobbin Disker: Haresh Obregon PhD, Phone: [phone] By: #### CBC, ESR, ADDONUAPLUS, CMP, PHOS, MG #### [place] [address] [place] #### FAYE, ANTIR, C3, CH50, CHROMATIN, ADNA, C4, HISAB #### [facility] ,Complement C4on 53-18-4806Pcrugjuagx C430 mg/tRXmkysv74-85Vor [facility] Phys[facility] GroupComment on above:Performed By: #### CBC, ESR, ADDONUAPLUS, CMP, PHOS, MG #### [address] #### FAYE, ANTIR, C3, CH50, CHROMATIN, ADNA, C4, HISAB #### [facility] ,Complement Total (CH50)on 47-44-4959Cmutqubxst Total (CH50)59Normal>41The [facility] Physician GroupComment on above:Result Comment: Age Male Female 1 - 30 [...] out of range values. Performed at: - [facility] [address] [id number] Bobbin Disker: Haresh Obregon PhD, Phone: [phone] PERFORMED BY: [place] [address] PATHOLOGIST LINK MACHINE OPERATOR MERLINE WISE M.D.Performed By: #### CBC, ESR, ADDONUAPLUS, CMP, PHOS, MG #### [address] #### FAYE, ANTIR, C3, CH50, CHROMATIN, ADNA, C4, HISAB #### [facility] ,Complete Blood Count Auto Diffon 73-44-3634Wneh Corpuscular HGB Conc33.1 g/dL Vwagru05.0-35.0The [facility] Medical CenterComment on above:Performed By: #### CBC, ESR, ADDONUAPLUS, CMP, PHOS, MG #### [address] [place] [address] [place] #### FAYE, ANTIR, C3, CH50, CHROMATIN, ADNA, C4, HISAB #### [facility] ,NRBC%0.0 /100{WBC}Normal0-0.5The [facility] Physician GroupComment on above: Performed By: #### CBC, ESR, ADDONUAPLUS, CMP, PHOS, MG #### [address] #### FAYE, ANTIR, C3, CH50, CHROMATIN, ADNA, C4, HISAB #### [facility] ,White Blood Count8.3 [CFU]/mLNormal3.8-11.6The [facility] Physician GroupComment on above:Performed By: #### CBC, ESR, ADDONUAPLUS, CMP, PHOS, MG #### [address] #### FAYE, ANTIR, C3, CH50, CHROMATIN, ADNA, C4, HISAB #### [facility] ,Comprehensive Metabolic Panelon 96-48-7313Yiugxil [Mass/Vol]4.6 g/dLNormal 3.5-5.7The [facility] Physician GroupComment on above:Performed By: #### CBC, ESR, ADDONUAPLUS, CMP, PHOS, MG #### [place] [address] [place] #### FAYE, ANTIR, C3, CH50, CHROMATIN, ADNA, C4, HISAB #### [facility] ,GFR/1.73 sq M.predicted MDRD (S/P/Bld) [Vol rate/Area]mL/min/{1.73_m2}NormalThe [facility] Physician GroupComment on above:Performed By: #### CBC, ESR, ADDONUAPLUS, CMP, PHOS, MG #### [place] [address] [place] #### FAYE, ANTIR, C3, CH50, CHROMATIN, ADNA, C4, HISAB #### [facility] ,Creatinine [Mass/volume] in Serum or PlasmaOrdered By: Martine Cade on 41-17-6531Ehwrmzcqsy [Mass/Vol]1.02 mg/dL0.60-1.20[facility] HospitalComment on above:Performed By: #### CBC, ESR, ADDONUAPLUS, CMP, PHOS, MG #### [facility] [address] [place] [address] #### FAYE, ANTIR, C3, CH50, CHROMATIN, ADNA, C4, HISAB #### [facility] ,DNA double strand Ab [Units/volume] in SerumOrdered By: Martine Cade on 00-37-5016UFJ double strand Ab Qn (S)[IU]/mL0-9[facility] Comment on above:Negative <5 Equivocal 5 - 9 Positive >9Performed at: [facility] [address] [id number] Director: Haresh Obregon PhD, Phone: [phone] and Microscopicon 02-21-2025 Bacteria,UrineNone SeenNormalNone SeenThe [facility] Physician GroupComment on above:Order Comment: Name Collection Type:: Clean-Voided MidstreamPerformed By: #### CBC, ESR, ADDONUAPLUS, CMP, PHOS, MG #### [facility] [address] [place] [address] [place] #### FAYE, ANTIR, C3, CH50, CHROMATIN, ADNA, C4, HISAB #### [facility] ,Bilirubin,UrineNegativeNormalNegativeThe [facility] Physician GroupComment on above:Order Comment: Name Collection Type:: Clean-Voided MidstreamPerformed By: #### CBC, ESR, ADDONUAPLUS, CMP, PHOS, MG #### [facility] [address] [place] [address] #### FAYE, ANTIR, C3, CH50, CHROMATIN, ADNA, C4, HISAB #### [facility] ,Glucose Ql (U)NormalNormalNormalThe [facility] Physician GroupComment on above: Order Comment: Name Collection Type:: Clean-Voided MidstreamPerformed By: #### CBC, ESR, ADDONUAPLUS, CMP, PHOS, MG #### [address] #### FAYE, ANTIR, C3, CH50, CHROMATIN, ADNA, C4, HISAB #### [facility] ,Hyaline Casts,UrineNoneNormal0-8The [facility] Physician GroupComment on above: Order Comment: Name Collection Type:: Clean-Voided MidstreamPerformed By: #### CBC, ESR, ADDONUAPLUS, CMP, PHOS, MG #### [address] #### FAYE, ANTIR, C3, CH50, CHROMATIN, ADNA, C4, HISAB #### [facility] ,Mucus,UrineRareNormalThe [facility] Physician GroupComment on above:Order Comment: Name Collection Type:: Clean-Voided MidstreamResult Comment: PERFORMED BY: [place] [address] PATHOLOGIST LINK MACHINE OPERATOR MERLINE WISE M.D.Performed By: #### CBC, ESR, ADDONUAPLUS, CMP, PHOS, MG #### [address] #### FAYE, ANTIR, C3, CH50, CHROMATIN, ADNA, C4, HISAB #### [facility] ,Nitrite,UrineNegativeNormalNegativeThe [facility] Physician GroupComment on above:Order Comment: Name Collection Type:: Clean-Voided MidstreamPerformed By: #### CBC, ESR, ADDONUAPLUS, CMP, PHOS, MG #### [address] #### FAYE, ANTIR, C3, CH50, CHROMATIN, ADNA, C4, HISAB #### [facility] ,Occult Blood,UrineNegativeNormalNegativeHca Florida [facility] Hospital Physician GroupComment on above:Order Comment: Name Collection Type:: Clean-Voided MidstreamPerformed By: #### CBC, ESR, ADDONUAPLUS, CMP, PHOS, MG #### [address] #### FAYE, ANTIR, C3, CH50, CHROMATIN, ADNA, C4, HISAB #### [facility] ,Protein,UrineNegativeNormalNegativeHca [facility] Physician GroupComment on above:Order Comment: Name Collection Type:: Clean-Voided MidstreamPerformed By: #### CBC, ESR, ADDONUAPLUS, CMP, PHOS, MG #### [address] #### FAYE, ANTIR, C3, CH50, CHROMATIN, ADNA, C4, HISAB #### [facility] ,RBC,Tcwjf8-2Dymlwo6-6Xmq [facility] Physician GroupComment on above:Order Comment: Name Collection Type:: Clean-Voided MidstreamPerformed By: #### CBC, ESR, ADDONUAPLUS, CMP, PHOS, MG #### [address] #### FAYE, ANTIR, C3, CH50, CHROMATIN, ADNA, C4, HISAB #### [facility] ,Specificy [place],Urine1.902Yoyscf0.001-1.030[facility] Comment on above:Order Comment: Name Collection Type:: Clean-Voided Midstream Performed By: #### CBC, ESR, ADDONUAPLUS, CMP, PHOS, MG #### [facility] [address] [place] [address] #### FAYE, ANTIR, C3, CH50, CHROMATIN, ADNA, C4, HISAB #### [facility] ,Urobilinogen,UrineNormalNormalNormalThe [facility] Physician GroupComment on above:Order Comment: Name Collection Type:: Clean-Voided MidstreamPerformed By: #### CBC, ESR, ADDONUAPLUS, CMP, PHOS, MG #### [place] [address] [place] #### FAYE, ANTIR, C3, CH50, CHROMATIN, ADNA, C4, HISAB #### [facility] ,WBC,Clzbh8-4Abugrv4-8Uyh [facility] Physician GroupComment on above:Order Comment: Name Collection Type:: Clean-Voided MidstreamPerformed By: #### CBC, ESR, ADDONUAPLUS, CMP, PHOS, MG #### [address] #### FAYE, ANTIR, C3, CH50, CHROMATIN, ADNA, C4, HISAB #### [facility] ,Eosinophils [#/volume] in Blood by Automated countOrdered By: Martine Cade on 32-50-7981Jnmjdzmvopj (Bld) [#/Vol]0.1 10*3/uL0.0-0.45[facility] HospitalComment on above:Performed By: #### CBC, ESR, ADDONUAPLUS, CMP, PHOS, MG #### [address] #### FAYE, ANTIR, C3, CH50, CHROMATIN, ADNA, C4, HISAB #### [facility] ,Eosinophils/100 leukocytes in Blood by Automated countOrdered By: Martine Cade on 86-09-7191Niwovuznans/100 WBC (Bld)1.0 %.[facility] HospitalComment on above:Performed By: #### CBC, ESR, ADDONUAPLUS, CMP, PHOS, MG #### [place] [address] [place] #### FAYE, ANTIR, C3, CH50, CHROMATIN, ADNA, C4, HISAB #### [facility] ,Epithelial cells.squamous [#/area] in Urine sediment by Automated countOrdered By: Martine Cade on 01-82-1562Tybsewvjeb cells.squamous Auto (Urine sed) [#/Area]N/AFEast Ohio Regional HospitalErythrocyte Sedimentation Rateon 94-87-0601JWE (Bld) [Velocity]36 mm/hHigh0-29The [facility] Comment on above:Result Comment: PERFORMED BY: [place] [address] PATHOLOGIST LINK MACHINE OPERATOR MERLINE WISE M.D.Performed By: #### CBC, ESR, ADDONUAPLUS, CMP, PHOS, MG #### [address] #### FAYE, ANTIR, C3, CH50, CHROMATIN, ADNA, C4, HISAB #### [facility] ,Erythrocyte distribution width [Ratio] by Automated countOrdered By: Martine Cade on 88-79-0536Tsnerogqeob distribution width (RBC) [Ratio]13.4 % 11.9-15.3FEast Ohio Regional HospitalComment on above:Performed By: #### CBC, ESR, ADDONUAPLUS, CMP, PHOS, MG #### [address] #### FAYE, ANTIR, C3, CH50, CHROMATIN, ADNA, C4, HISAB #### [facility] ,Erythrocyte sedimentation rate by Photometric methodOrdered By: Martine Cade on 71-68-9805FZQ Photometric method (Bld) [Velocity]36 mm/hrHigh0-29[facility] HospitalErythrocytes [#/area] in Urine sediment by Automated countOrdered By: Martine Cade on 72-76-6247SVR Auto (Urine sed) [#/Area]1-2 [HPF]0-4FEast Ohio Regional HospitalErythrocytes [#/volume] in Blood by Automated countOrdered By: Martine Cade on 43-98-6952RLF (Bld) [#/Vol]4.31 10*6/uL3.60-5.00[facility] HospitalComment on above:Performed By: #### CBC, ESR, ADDONUAPLUS, CMP, PHOS, MG #### [address] #### FAYE, ANTIR, C3, CH50, CHROMATIN, ADNA, C4, HISAB #### [facility] ,Glucose [Mass/volume] in Serum or PlasmaOrdered By: Martine Cade on 66-56-2549Xvveihv [Mass/Vol]107 mg/nAHcjz65-070YbqhmnuuwMercy Health Allen Hospital Comment on above:ADA recommended reference rangeRandom Glucose Reference Range is dependent on time and content of last meal. Glucose of more than 200 mg/dL in a nonstressed, ambulatory subject supports the diagnosisof Diabetes Mellitus. Result Comment: Random Glucose Reference Range is dependent on time and content of last meal. Glucose of more than 200 mg/dL in a nonstressed, ambulatory subject supports the diagnosis of Diabetes Mellitus. ADA recommended reference rangePerformed By: #### CBC, ESR, ADDONUAPLUS, CMP, PHOS, MG #### [address] #### FAYE, ANTIR, C3, CH50, CHROMATIN, ADNA, C4, HISAB #### [facility] ,Glucose [Mass/volume] in Urine by Test stripOrdered By: Martine Cade on 58-54-5542Fygunqd Test strip (U) [Mass/Vol]Normal mg/dLNormMercy Health Urbana HospitalHematocrit [Volume Fraction] of Blood by Automated countOrdered By: Martine Cade on 61-17-1341Jtklhbeqdy (Bld) [Volume fraction]40.7 % 34.0-46.4FEast Ohio Regional HospitalComment on above:Performed By: #### CBC, ESR, ADDONUAPLUS, CMP, PHOS, MG #### [place] [address] [place] #### FAYE, ANTIR, C3, CH50, CHROMATIN, ADNA, C4, HISAB #### [facility] ,Hemoglobin Test strip Ql (U)Ordered By: Martine Cade on 31-51-7560Ccfyemiaaw Ql (U)NegativeNegUniversity Hospitals Lake West Medical CenterHemoglobin [Mass/volume] in BloodOrdered By: Martine Cade on 81-60-1392Ixucuantiu (Bld) [Mass/Vol]13.5 g/dL11.8-15.4FEast Ohio Regional HospitalComment on above:Performed By: #### CBC, ESR, ADDONUAPLUS, CMP, PHOS, MG #### [facility] [address] #### FAYE, ANTIR, C3, CH50, CHROMATIN, ADNA, C4, HISAB #### [facility] ,Histone Antibodieson 99-52-1048Esbpaqy Antibodies0.5Uvildh9.0-0.9The [facility] Physician GroupComment on above:Result Comment: Negative <1.0 Weak Positive 1.0 - 1.5 Moderate Positive 1.6 - 2.5 Strong Positive >2.5 Performed at: - [facility] [id number] Bobbin Disker: Josephine Joseph MD, Phone: [phone] By: #### CBC, ESR, ADDONUAPLUS, CMP, PHOS, MG #### [place] [address] [place] #### FAYE, ANTIR, C3, CH50, CHROMATIN, ADNA, C4, HISAB #### [facility] ,Hyaline casts [#/area] in Urine sediment by Automated countOrdered By: Martine Cade on 96-18-6574Duiqzml casts Auto (Urine sed) [#/Area]None [LPF]0-8 [facility] HospitalKetones [Presence] in Urine by Test strip Ordered By: Martine Cade on 30-43-0106Yftyehm Ql (U)NegativeNegUniversity Hospitals Lake West Medical CenterComment on above:Order Comment: Name Collection Type:: Clean-Voided MidstreamPerformed By: #### CBC, ESR, ADDONUAPLUS, CMP, PHOS, MG #### [facility] [address] [place] [address] [place] #### FAYE, ANTIR, C3, CH50, CHROMATIN, ADNA, C4, HISAB #### [facility] ,Leukocyte esterase [Presence] in Urine by Test stripOrdered By: Martine Cade on 66-04-6896Qcamalppd esterase Test strip Ql (U)NegativeNegativeMercy Health Allen HospitalComment on above:Order Comment: Name Collection Type:: Clean-Voided MidstreamPerformed By: #### CBC, ESR, ADDONUAPLUS, CMP, PHOS, MG #### [place] [address] [place] #### FAYE, ANTIR, C3, CH50, CHROMATIN, ADNA, C4, HISAB #### [facility] ,Leukocytes [#/area] in Urine sediment by Automated countOrdered By: Martine Cade on 81-33-3976WJF Auto (Urine sed) [#/Area]1-2 [HPF]0-4FEast Ohio Regional HospitalLeukocytes [#/volume] corrected for nucleated erythrocytes in Blood by Automated counOrdered By: Martine Cade on 02-21-2025 WBC corrected for nucl RBC Auto (Bld) [#/Vol]8.3 10*3/uL3.8-11.6FEast Ohio Regional HospitalLeukocytes [#/volume] in Blood by Automated countOrdered By: Martine Cade on 24-45-8505UQD (Bld) [#/Vol]8.3 10*3/uL3.8-11.6FEast Ohio Regional HospitalComment on above:Performed By: #### CBC, ESR, ADDONUAPLUS, CMP, PHOS, MG #### [facility] [address] [place] [address] [place] #### FAYE, ANTIR, C3, CH50, CHROMATIN, ADNA, C4, HISAB #### [facility] ,Lymphocytes [#/volume] in Blood by Automated countOrdered By: Martine Cade on 87-93-9606Kyzsszxrtmk (Bld) [#/Vol]1.9 10*3/uL1.00-4.8[facility] HospitalComment on above:Performed By: #### CBC, ESR, ADDONUAPLUS, CMP, PHOS, MG #### [address] #### FAYE, ANTIR, C3, CH50, CHROMATIN, ADNA, C4, HISAB #### [facility] ,Lymphocytes/100 leukocytes in Blood by Automated countOrdered By: Martien Cade on [id number]/100 WBC (Bld)23.0 %.[facility] HospitalComment on above:Performed By: #### CBC, ESR, ADDONUAPLUS, CMP, PHOS, MG #### [place] [address] [place] #### FAYE, ANTIR, C3, CH50, CHROMATIN, ADNA, C4, HISAB #### [facility] ,MCH [Entitic mass] by Automated countOrdered By: Martine Cade on 02-21-2025 MCH (RBC) [Entitic mass]31.3 pg24.7-34.3FEast [facility] Regional HospitalComment on above:Performed By: #### CBC, ESR, ADDONUAPLUS, CMP, PHOS, MG #### [place] [address] [place] #### FAYE, ANTIR, C3, CH50, CHROMATIN, ADNA, C4, HISAB #### [facility] ,MCHC Auto (RBC) [Mass/Vol]Ordered By: Martine Cade on [id number] (RBC) [Mass/Vol]33.1 g/dL32.0-35.0[facility] HospitalMCV [Entitic volume] by Automated countOrdered By: Martine Cade on [id number] (RBC) [Entitic vol]94.5 [id number] Regional Medical CenterComment on above: Performed By: #### CBC, ESR, ADDONUAPLUS, CMP, PHOS, MG #### [address] #### FAYE, ANTIR, C3, CH50, CHROMATIN, ADNA, C4, HISAB #### [facility] ,Magnesium [Mass/volume] in Serum or PlasmaOrdered By: Martine Cade on [id number] [Mass/Vol]2.2 mg/dL1.9-2.7FEast [facility] Comment on above:Result Comment: PERFORMED BY: [place] [address] PATHOLOGIST LINK MACHINE OPERATOR MERLINE WISE M.D.Performed By: #### CBC, ESR, ADDONUAPLUS, CMP, PHOS, MG #### [address] #### FAYE, ANTIR, C3, CH50, CHROMATIN, ADNA, C4, HISAB #### [facility] ,Monocytes [#/volume] in Blood by Automated countOrdered By: Martine Cade on [phone] (Bld) [#/Vol]0.6 10*3/uL0.0-0.8[facility] HospitalComment on above:Performed By: #### CBC, ESR, ADDONUAPLUS, CMP, PHOS, MG #### [address] #### FAYE, ANTIR, C3, CH50, CHROMATIN, ADNA, C4, HISAB #### [facility] ,Monocytes/100 leukocytes in Blood by Automated countOrdered By: Martine Cade on 15-90-1586Fsjswpvyu/100 WBC (Bld)7.5 %.[facility] Comment on above:Performed By: #### CBC, ESR, ADDONUAPLUS, CMP, PHOS, MG #### [place] [address] [place] #### FAYE, ANTIR, C3, CH50, CHROMATIN, ADNA, C4, HISAB #### [facility] ,Mucus [Presence] in Urine by AutomatedOrdered By: Martine Cade on 02-21-2025 Mucus Auto Ql (U)Rare [LPF][facility] HospitalNeutrophils [#/volume] in Blood by Automated countOrdered By: Martine Cade on 02-21-2025 Neutrophils (Bld) [#/Vol]5.6 10*3/uL1.8-7.7FEast [facility] Comment on above:Performed By: #### CBC, ESR, ADDONUAPLUS, CMP, PHOS, MG #### [address] #### FAYE, ANTIR, C3, CH50, CHROMATIN, ADNA, C4, HISAB #### [facility] ,Neutrophils/100 leukocytes in Blood by Automated countOrdered By: Martine Cade on 89-89-8279Ozejdhygmng/100 WBC (Bld)67.5 %.[facility] HospitalComment on above:Performed By: #### CBC, ESR, ADDONUAPLUS, CMP, PHOS, MG #### [place] [address] [place] #### FAYE, ANTIR, C3, CH50, CHROMATIN, ADNA, C4, HISAB #### [facility] ,Nitrite Test strip Ql (U)Ordered By: Martine Cade on 89-10-7745Kdkhbfk Ql (U) NegativeNegativeMercy Health Allen HospitalNo Panel InformationOrdered By: Martine Cade on 13-18-1889Hlkvmeudq GFR (CKD-EPI)> 60.0 mL/MinMercy Health Allen HospitalPharmacy Creatinine Clearance (ChemN/[facility] SouthNucleated erythrocytes [Presence] in Blood by Automated count Ordered By: Martine Cade on 21-53-2430Flvkicgxg RBC Auto Ql (Bld)0.0 /100{WBC} 0-0.5FEast Ohio Regional HospitalPhosphate [Mass/volume] in Serum or Plasma Ordered By: Martine Cade on 08-35-5947Hyqnunlsj [Mass/Vol]2.9 mg/dL2.5-4.5 [facility] HospitalComment on above:Performed By: #### CBC, ESR, ADDONUAPLUS, CMP, PHOS, MG #### [address] #### FAYE, ANTIR, C3, CH50, CHROMATIN, ADNA, C4, HISAB #### [facility] ,Platelet mean volume [Entitic volume] in Blood by Automated countOrdered By: Martine Cade on 66-44-7198Kmbngcpc mean volume (Bld) [Entitic vol]9.9 fL 6.3-10.7FEast Ohio Regional HospitalComment on above:Performed By: #### CBC, ESR, ADDONUAPLUS, CMP, PHOS, MG #### [address] #### FAYE, ANTIR, C3, CH50, CHROMATIN, ADNA, C4, HISAB #### [facility] ,Platelets [#/volume] in Blood by Automated countOrdered By: Martine Cade on 93-21-0684Kbhqaconm (Bld) [#/Vol]244 10*3/fZ416-758PtxuylyyiMercy Health Allen HospitalComment on above:Performed By: #### CBC, ESR, ADDONUAPLUS, CMP, PHOS, MG #### [place] [address] [place] #### FAYE, ANTIR, C3, CH50, CHROMATIN, ADNA, C4, HISAB #### [facility] ,Potassium [Moles/volume] in Serum or PlasmaOrdered By: Martine Cade on 03-95-0877Rxsozqokk [Moles/Vol]4.0 mmol/L3.5-5.1FEast Ohio Regional HospitalComment on above:Performed By: #### CBC, ESR, ADDONUAPLUS, CMP, PHOS, MG #### [place] [address] [place] #### FAYE, ANTIR, C3, CH50, CHROMATIN, ADNA, C4, HISAB #### [facility] ,Protein Test strip (U) [Mass/Vol]Ordered By: Martine Cade on 02-21-2025 Protein (U) [Mass/Vol]NegativeNegativeMercy Health Allen HospitalProtein [Mass/volume] in Serum or PlasmaOrdered By: Martine Cade on 29-24-5717Hkpyevw [Mass/Vol]7.2 g/dL6.4-8.9[facility] HospitalComment on above: Performed By: #### CBC, ESR, ADDONUAPLUS, CMP, PHOS, MG #### [place] [address] [place] #### FAYE, ANTIR, C3, CH50, CHROMATIN, ADNA, C4, HISAB #### [facility] ,Ribonucleoprotein antibody assayOrdered By: Martine Cade on 02-21-2025 Ribonucleoprotein antibody assay1.0 AIHigh0.0-0.9[facility]altherum Faye extractable nuclear antigen (DERIC) antibody assay (units/volume)Ordered By: Martine Cade on 96-85-8687Nedmq extractable nuclear Ab Qn (S)3.1 AIHigh0.0-0.9[facility]altherum globulin measurement by calculation (mass/volume)Ordered By: Martine Cade on 02-21-2025 Globulin (S) [Mass/Vol]2.6 g/dLMercy Health Allen HospitalComment on above:Performed By: #### CBC, ESR, ADDONUAPLUS, CMP, PHOS, MG #### [place] [address] [place] #### FAYE, ANTIR, C3, CH50, CHROMATIN, ADNA, C4, HISAB #### [facility] ,Serum histone IgG antibody assay by immunoassay (units/volume)Ordered By: Martine Cade on 05-47-1483Kliqvxs IgG IA Qn (S)0.8 Units0.0-0.9[facility] HospitalComment on above:Negative <1.0 Weak Positive 1.0 - 1.5 Moderate Positive 1.6 - 2.5 Strong Positive >2.5Performed at: - Lab[address] [id number] Director: Josephine Almaraz, Phone: [phone] or plasma albumin/globulin mass ratioOrdered By: Martine Cade on 89-02-4532Cgnhxew/Globulin [Mass ratio]1.8 {ratio}[facility] HospitalComment on above:Performed By: #### CBC, ESR, ADDONUAPLUS, CMP, PHOS, MG #### [facility] [address] [place] [address] #### FAYE, ANTIR, C3, CH50, CHROMATIN, ADNA, C4, HISAB #### [facility] ,Serum or plasma anion gap determinationOrdered By: Martine Cade on 02-21-2025 Anion gap [Moles/Vol]9.6 mmol/L6.0-15.0[facility] HospitalComment on above:Performed By: #### CBC, ESR, ADDONUAPLUS, CMP, PHOS, MG #### [facility] [address] [place] [address] [place] #### FAYE, ANTIR, C3, CH50, CHROMATIN, ADNA, C4, HISAB #### [facility] ,Serum or plasma chromatin antibody assay (units/volume)Ordered By: Martine Cade on 86-75-2807Numpfeuqz Ab Qn1.7 AIHigh0.0-0.9[facility] Healtherum or plasma complement C3 measurement (mass/volume)Ordered By: Martine Cade on 55-05-5345Zajfmvooze C3 [Mass/Vol]164 mg/rA21-847DbbzzjaoyMercy Health Allen HospitalComment on above:Performed at: - Labco[address] [id number] Director: Haresh Obregon PhD, Phone: [phone] or plasma complement C4 measurement (mass/volume)Ordered By: Martine Cade on 62-59-2150Wqezpltnbz C4 [Mass/Vol]30 mg/rT89-02LvpwtmcgzKettering Healthodium [Moles/volume] in Serum or PlasmaOrdered By: Martine Cade on 59-46-8345Xwazyz [Moles/Vol]140 mmol/Y527-049TyyuwmvoiMercy Health Allen HospitalComment on above:Performed By: #### CBC, ESR, ADDONUAPLUS, CMP, PHOS, MG #### [address] #### FAYE, ANTIR, C3, CH50, CHROMATIN, ADNA, C4, HISAB #### [facility] ,Specific gravity Test strip (U) [Rel density]Ordered By: Martine Cade on 14-02-9464Vhvhnvrg gravity (U) [Rel density]1.0251.001-1.030[facility] HospitalTotal hemolytic complement CH50 assayOrdered By: Martine Cade on 92-65-8284Ndgot hemolytic complement CH50 assay59 U/mL>41[facility] HospitalComment on above:Age Male Female 1 - 30 days Not Estab. Not Estab. 31 days - 6 months >32 >20 7 months - 17 years >39 >39 >17 years >41 >41 NOTE: The adult ( >17 years ) reference intervalrange is used to flag abnormals on this report. If the patient is 17 years old or younger, use the table above to determine out of range values.Performed at: - [facility] [id number] Director: Haresh Obregon PhD, Phone: [phone] nitrogen [Mass/volume] in Serum or PlasmaOrdered By: Martine Cade on 81-67-8179Jnzt nitrogen [Mass/Vol]28 mg/dLHigh7-25[facility] HospitalComment on above:Performed By: #### CBC, ESR, ADDONUAPLUS, CMP, PHOS, MG #### [facility] [address] #### FAYE, ANTIR, C3, CH50, CHROMATIN, ADNA, C4, HISAB #### [facility] ,Urobilinogen Test strip (U) [Mass/Vol]Ordered By: Martine Cade on 02-21-2025 Urobilinogen (U) [Mass/Vol]Normal mg/dLNormalMercy Health Allen HospitalpH of Urine by Test stripOrdered By: Martine Cade on 53-86-2875iQ (U)5.5 [pH] 5.0-9.0[facility] HospitalComment on above:Order Comment: Name Collection Type:: Clean-Voided MidstreamPerformed By: #### CBC, ESR, ADDONUAPLUS, CMP, PHOS, MG #### [facility] [address] [place] [address] #### FAYE, ANTIR, C3, CH50, CHROMATIN, ADNA, C4, HISAB #### [facility] ,CNTHERAPYon 45-55-0365NJRNKDAVIQF/PT/Speech Visit (LOPTRM) SVETLANA CARVER ([id number]) 1960 F Date Time Provider Department 02/13/25 10:45 AM SELENE BUCKLEY Date Time Provider Department Center 02/13/2025 10:45 AM [id number] BUCKLEY Reason for Visit: PT Discharge [752] Primary [...] CAFFEINE ORAL Take 175 mg by mouth. Security Intern: Therapy (PT/OT/Speech/Resp) ID: [id number] 02/13/2025 11:14 AM Author: SELENE BUCKLEY Signed by SELENE BUCKLEY PT on 02/13/2025 at 11:14 AM Document text: Program_ID:[id number] Access Code: [email or web address] URL: [email or web address]/ Date: 02-13-2025 Prepared By: Selene Buckley Program Notes Exercises - Prone Scapular Protraction [...] - 1-2 sets - 10-15 reps Normal [facility] NTon 83-41-5262WELJMEE NTHNO ID: [id number] Author: SELENE BUCKLEY PT Service: Physical Therapy Author Type: Physical Therapist Type: Therapy (PT/OT/Speech/Resp) Filed: 02/13/2025 11:14 Note Text: Program_ID:[id number] Access Code: [email or web address] URL: [email or web address]/ Date: 02-13-2025 Prepared By: Selene Buckley Program Notes Exercises - Prone Scapular Protraction [...] x weekly - 1-2 sets - 10-15 repsNormalCMercy Memorial HospitalHERAPYon 60-82-7545ZVWCGPRMI OT/PT/Speech Visit (STEPHANEPTTAD) SVETLANA CARVER ([id number]) 1960 F Date Time Provider Department 01/24/25 4:30 PM SELENE BUCKLEY Date Time Provider Department Center 01/24/2025 4:30 PM [id number] BUCKLEY Reason for Visit: Physical Therapy [503] Primary [...] CAFFEINE ORAL Take 175 mg by mouth. Security Intern: Addendum Therapy (PT/OT/Speech/Resp) ID: [id number] 01/24/2025 5:08 PM Author: SELENE BUCKLEY Signed by SELENE BUCKLEY PT on 01/24/2025 at 5:08 PM * * * This document replaces document [id number] * * * Document text: Program_ID:[id number] Access Code: [email or web address] URL: [email or web address]/ Date: 01-24-2025 Prepared By: Selene Buckley Program Notes Exercises - Prone Scapular Protraction [...] - 1-2 sets - 10-15 reps Normal [facility] ClevelandTHERAPY NTon 85-20-2425YQFGBLJ NTHNO ID: [id number] Author: SELENE BUCKLEY PT Service: Physical Therapy Author Type: Physical Therapist Type: Therapy (PT/OT/Speech/Resp) Filed: 01/24/2025 17:08 Note Text: Program_ID:[id number] Access Code: [email or web address] URL: [email or web address]/ Date: 01-24-2025 Prepared By: Selene Buckley Program Notes Exercises - Prone Scapular Protraction [...] x weekly - 1-2 sets - 10-15 repsNormalCUniversity Hospitals Elyria Medical CentervelandCNOVon 43-40-9025OOBQNoihqr Visit (LOORRM) SVETLANA [id number]) 1960 F Date Time Provider Department 01/05/25 [...] comment Reposition;Relaxation;Positioning;Medication;Heat Comments: Stretching Aleve, Tylenol HISTORY: Svetlana is [...] She recently completed a half marathon in [facility], without any issues related to her [...] these instructions. Informed Consent Consent Obtained: Written [place] Protocol A moment to CARE was completed. SIGN IN Personnel directly in (more content not included)...NormalAultman Alliance Community HospitalCNTHERAPYon 97-91-6478BJPSEPSOPLJ/PT/Speech Visit (STEPHANEPTRM) SVETLANA CARVER ([id number]) 1960 F Date Time Provider Department 01/05/25 12:30 PM SELENE BUCKLEY Date Time Provider Department Center 01/05/2025 12:30 PM [id number] BUCKLEY Reason for Visit: PT Eval [747] Patient [...] CAFFEINE ORAL Take 175 mg by mouth. Security Intern: Addendum Therapy (PT/OT/Speech/Resp) ID: [id number] 01/05/2025 1:11 PM Author: SELENE BUCKLEY Signed by SELENE BUCKLEY PT on 01/05/2025 at 1:11 PM * * * This document replaces document [id number] * * * Document text: Program_ID:[id number] Access Code: [email or web address] URL: [email or web address]/ Date: 01-05-2025 Prepared By: Selene Buckley Program Notes Exercises - Prone Scapular Protraction [...] - 1 sets - 10 reps Normal [facility] ClevelandLarge Joint Arthro/Inj: R subacromial bursaon 51-55-1475AutgoGarrison akhtar PA-C 01/05/2025 11:54 AM Large Joint Arthro/Inj: [...] these instructions. Informed Consent Consent Obtained: Written [place] Protocol A moment to CARE was completed. [...] instruments, equipment, possible retained foreign bodies accounted for.[facility] Panel Informationon 66-59-6249OARRKAFYUN: No acute bony abnormality. Mild right glenohumeral osteoarthritis. Assistant Manager Bilingual: MARKEL Transcribe Date/Time: Jan 05 2025 12:35P Dictated by : DONALD NUNEZ MD This examination was interpreted and the report reviewed and electronically signed by: DONALD NUNEZ MD on Jan 05 2025 12:42PM [facility] [[email or web address]] DIVISION OF RADIOLOGYRadiology Study observation (narrative)[facility] Panel InformationOrdered By: Ccf Provider on 76-71-5722Isrdduccv ClinicTHERAPY NTon 10-79-1263ZWRNFUX NTHNO ID: [id number] Author: SELENE BUCKLEY PT Service: Physical Therapy Author Type: Physical Therapist Type: Therapy (PT/OT/Speech/Resp) Filed: 01/05/2025 13:11 Note Text: Program_ID:[id number] Access Code: [email or web address] URL: [email or web address].[employer]/ Date: 01-05-2025 Prepared By: Selene Buckley Program Notes Exercises - Prone Scapular Protraction [...] x weekly - 1 sets - 10 repsNormal [facility] Community HospitalXR SHLDR 4V AP/YOUNG/LAT/OUTLET LTon 73-27-6657OW SHLDR 4V AP/YOUNG/LAT/OUTLET LT* * *Final Report* * * DATE OF EXAM: Jan 05 2025 10:58AM LZX 5604 - XR SHLDR 4V AP/YOUNG/LAT/OUTLET LT / PROCEDURE REASON: multiple diagnoses * * * * Physician Interpretation * * * * EXAMINATION / TECHNIQUE: XR SHLDR 4V AP/YOUNG/LAT/OUTLET RT, XR SHLDR 4V AP/YOUNG/LAT/OUTLET LT HISTORY: chronic shoulder pain no injury limited rom (accession [id number]), chronic shoulder pain with limited rom no injury (accession [id number]) Pain of both shoulder joints Pain of both shoulder joints COMPARISON: None RESULT: No acute fracture or osseous malalignment is identified in either shoulder. Joint spaces are maintained on the left. Mild right glenohumeral osteoarthritis. IMPRESSION: No acute bony abnormality. Mild right glenohumeral osteoarthritis. Assistant Manager Bilingual: PSCDorothy Transcribe Date/Time: Jan 05 2025 12:35P Dictated by : DONALD NUNEZ MD This examination was interpreted and the report reviewed and electronically signed by: DONALD NUNEZ MD on Jan 05 2025 12:42PM EST [id number] Alliance Community HospitalXR SHLDR 4V AP/YOUNG/LAT/OUTLET RTon 21-64-4378RX SHLDR 4V AP/YOUNG/LAT/OUTLET RT* * *Final Report* * * DATE OF EXAM: Jan 05 2025 10:58AM LZX 5605 - XR SHLDR 4V AP/YOUNG/LAT/OUTLET RT / PROCEDURE REASON: multiple diagnoses * * * * Physician Interpretation * * * * EXAMINATION / TECHNIQUE: XR SHLDR 4V AP/YOUNG/LAT/OUTLET RT, XR SHLDR 4V AP/YOUNG/LAT/OUTLET LT HISTORY: chronic shoulder pain no injury limited rom (accession [id number]), chronic shoulder pain with limited rom no injury (accession [id number]) Pain of both shoulder joints Pain of both shoulder joints COMPARISON: None RESULT: No acute fracture or osseous malalignment is identified in either shoulder. Joint spaces are maintained on the left. Mild right glenohumeral osteoarthritis. IMPRESSION: No acute bony abnormality. Mild right glenohumeral osteoarthritis. Assistant Manager Bilingual: MARKEL Transcribe Date/Time: Jan 05 2025 12:35P Dictated by : DONALD NUNEZ MD This examination was interpreted and the report reviewed and electronically signed by: DONALD NUNEZ MD on Jan 05 2025 12:42PM EST [id number] Memorial Hospital Shoulder - left 4 Views on 01-05-2025* * *Final Report* * * DATE OF EXAM: Jan 05 2025 10:58AM LZX 5604 - XR SHLDR 4V AP/YOUNG/LAT/OUTLET LT / PROCEDURE REASON: multiple diagnoses * * * * Physician Interpretation * * * * EXAMINATION / TECHNIQUE: XR SHLDR 4V AP/YOUNG/LAT/OUTLET RT, XR SHLDR 4V AP/YOUNG/LAT/OUTLET LT HISTORY: chronic shoulder pain no injury limited rom (accession [id number]), chronic shoulder pain with limited rom no injury (accession [id number]) Pain of both shoulder joints Pain of both shoulder joints COMPARISON: None RESULT: No acute fracture or osseous malalignment is identified in either shoulder. Joint spaces are maintained on the left. Mild right glenohumeral osteoarthritis. DIVISION OF RADIOLOGYProvider, [facility] [place] - 01/05/2025 * * *Final Report* * * DATE OF EXAM: Jan 05 2025 10:58AM LZX 5604 - XR SHLDR 4V AP/YOUNG/LAT/OUTLET LT / PROCEDURE REASON: multiple diagnoses * * * * Physician Interpretation * * * * EXAMINATION / TECHNIQUE: XR SHLDR 4V AP/YOUNG/LAT/OUTLET RT, XR SHLDR 4V AP/YOUNG/LAT/OUTLET LT HISTORY: chronic shoulder pain no injury limited rom (accession [id number]), chronic shoulder pain with limited rom no injury (accession [id number]) Pain of both shoulder joints Pain of both shoulder joints COMPARISON: None RESULT: No acute fracture or osseous malalignment is identified in either shoulder. Joint spaces are maintained on the left. Mild right glenohumeral osteoarthritis. IMPRESSION IMPRESSION: No acute bony abnormality. Mild right glenohumeral osteoarthritis. Assistant Manager Bilingual: MARKEL Transcribe Date/Time: Jan 05 2025 12:35P Dictated by : DONALD NUNEZ MD This examination was interpreted and the report reviewed and electronically signed by: DONALD NUNEZ MD on Jan 05 2025 12:42PM EST [facility] HospitalXR Shoulder - right 4 Viewson 01-05-2025* * *Final Report* * * DATE OF EXAM: Jan 05 2025 10:58AM LZX 5605 - XR SHLDR 4V AP/YOUNG/LAT/OUTLET RT / PROCEDURE REASON: multiple diagnoses * * * * Physician Interpretation * * * * EXAMINATION / TECHNIQUE: XR SHLDR 4V AP/YOUNG/LAT/OUTLET RT, XR SHLDR 4V AP/YOUNG/LAT/OUTLET LT HISTORY: chronic shoulder pain no injury limited rom (accession [id number]), chronic shoulder pain with limited rom no injury (accession [id number]) Pain of both shoulder joints Pain of both shoulder joints COMPARISON: None RESULT: No acute fracture or osseous malalignment is identified in either shoulder. Joint spaces are maintained on the left. Mild right glenohumeral osteoarthritis. DIVISION OF RADIOLOGYProvider, [facility] [place] - 01/05/2025 * * *Final Report* * * DATE OF EXAM: Jan 05 2025 10:58AM LZX 5605 - XR SHLDR 4V AP/YOUNG/LAT/OUTLET RT / PROCEDURE REASON: multiple diagnoses * * * * Physician Interpretation * * * * EXAMINATION / TECHNIQUE: XR SHLDR 4V AP/YOUNG/LAT/OUTLET RT, XR SHLDR 4V AP/YOUNG/LAT/OUTLET LT HISTORY: chronic shoulder pain no injury limited rom (accession [id number]), chronic shoulder pain with limited rom no injury (accession [id number]) Pain of both shoulder joints Pain of both shoulder joints COMPARISON: None RESULT: No acute fracture or osseous malalignment is identified in either shoulder. Joint spaces are maintained on the left. Mild right glenohumeral osteoarthritis. IMPRESSION IMPRESSION: No acute bony abnormality. Mild right glenohumeral osteoarthritis. Assistant Manager Bilingual: PSCB Transcribe Date/Time: Jan 05 2025 12:35P Dictated by : DONALD NUNEZ MD This examination was interpreted and the report reviewed and electronically signed by: DONALD NUNEZ MD on Jan 05 2025 12:42PM [facility] 37-81-6430PVDOBozndh Visit (LOORRM) SVETLANA CARVER ([id number]) 1960 F Date Time Provider Department 12/15/24 10:15 AM GARRISON LEE During your visit today, we recorded the following information about you: Garrison Lee PA-C 12/15/2024 10:38 AM Signed This document has been created with the use of voice recognition technology, including AI Scribe technology. It may contain inaccuracies: misspellings, inaccurate syntax or word sense that escaped review. CHIEF COMPLAINT: Svetlnaa Carver is a 64 year old female who presents today for follow up of both knees. HISTORY OF PRESENT ILLNESS: PAIN EVALUATION 12/14/2024 2926 Pain Level: 7 Pain Location: Knee-Left Description: Aching;Dull Duration Units: Months Frequency: Intermittent Intervention/Comfort measure: Medication;Cold;Distractions;Reposition;Relaxation;Positioning HISTORY: Svetlana is a 64-year-old female presenting [...] prepare for an upcoming half marathon in [facility] on the or , with travel [...] these instructions. Informed Consent Consent Obtained: Written [place] Protocol A moment to CARE was completed. [...] cortisone injection in N (more content not included)...NormalA[facility] Hospital Large Joint Arthro/Inj: L knee jointon 81-46-0997Mowzv, ALEX Ji 12/15/2024 10:38 AM Large Joint Arthro/Inj: L [...] these instructions. Informed Consent Consent Obtained: Written [place] Protocol A moment to CARE was completed. [...] instruments, equipment, possible retained foreign bodies accounted for.[facility] CenterCNOVon 84-67-1391MUPOFvnlmf Visit (LOORRM) SVETLANA CARVER ([id number]) 1960 F Date Time Provider Department 07/25/24 1:45 PM GARRISON LEE TORRES During your visit today, we recorded the [...] knee joints Informed Consent Consent Obtained: Written [place] Protocol A moment to CARE was completed. [...] both knees today Discusse (more content not included)...NormalAultman Alliance Community HospitalLarge Joint Arthro/Inj: bilateral knee jointson 79-16-3992QeycrGarrison akhtar PA-C 07/25/2024 2:21 PM Large Joint Arthro/Inj: bilateral knee joints Informed Consent Consent Obtained: Written [place] Protocol A moment to CARE was completed. [...] and Plan of Care Visit completed when applicableLima City Hospital ClinicAlanine aminotransferase [Enzymatic activity/volume] in Serum or PlasmaOrdered By: Vlad Gallagher on 13-04-2290OGP [Catalytic activity/Vol]21 U/L7-52[facility] HospitalAlbumin [Mass/volume] in Serum or Plasma by Bromocresol green (BCG) dye binding methoOrdered By: Vlad Gallagher on 78-66-7335Thadzvd BCG dye [Mass/Vol]4.3 g/dL3.5-5.7FEast Ohio Regional HospitalAlkaline phosphatase [Enzymatic activity/volume] in Serum or PlasmaOrdered By: Vlad Gallagher on 86-49-0775BBW [Catalytic activity/Vol]70 U/V91-930WnngbzjznMercy Health Allen HospitalAspartate aminotransferase [Enzymatic activity/volume] in Serum or PlasmaOrdered By: Vlad Gallagher on 59-90-7068OYX [Catalytic activity/Vol]23 U/L 13-39[facility] HospitalBasophils Auto (Bld) [#/Vol]Ordered By: Vlad Gallagher on 22-90-6117Ewazosttp (Bld) [#/Vol]0.0 10*3/uL0.0-0.2FEast Ohio Regional HospitalBasophils/100 WBC Auto (Bld)Ordered By: Vlad Gallagher on 46-67-8982Cqfnfytrr/100 WBC (Bld)0.8 %.[facility] Bilirubin.total [Mass/volume] in Serum or PlasmaOrdered By: Vlad Gallagher on 64-34-2586Ntlyntvxm [Mass/Vol]0.3 mg/dL0.3-1.0[facility] HospitalC reactive protein [Mass/volume] in Serum or PlasmaOrdered By: Vlad Gallagher on 12-34-2778PUJ [Mass/Vol]< 0.5 mg/dL0.0-0.5FEast [facility] Hospital Calcium [Mass/volume] in Serum or PlasmaOrdered By: Vlad Gallagher on 01-17-2024 Calcium [Mass/Vol]9.6 mg/dL8.6-10.3FEast Ohio Regional HospitalCarbon dioxide, total [Moles/volume] in Serum or PlasmaOrdered By: Vlad Gallagher on 62-29-1092MU2 [Moles/Vol]28.0 mmol/L21.0-31.0[facility] Chloride [Moles/volume] in Serum or PlasmaOrdered By: Vlad Gallagher on 72-21-6862Crmwghhr [Moles/Vol]105 mmol/Y21-690UwsqyfvqaMercy Health [facility] Hospital Creatinine [Mass/volume] in Serum or PlasmaOrdered By: Vlad Gallagher on 80-90-2398Npvxipfvhk [Mass/Vol]0.87 mg/dL0.60-1.20[facility] HospitalEosinophils Auto (Bld) [#/Vol]Ordered By: Vlad Gallagher on 01-17-2024 Eosinophils (Bld) [#/Vol]0.2 10*3/uL0.0-0.45[facility] Eosinophils/100 WBC Auto (Bld)Ordered By: Vlad Gallagher on 01-17-2024 Eosinophils/100 WBC (Bld)2.7 %.[facility] HospitalErythrocyte distribution width Auto (RBC) [Ratio]Ordered By: Vlad Gallagher on 01-17-2024 Erythrocyte distribution width (RBC) [Ratio]14.5 %11.9-15.3FEast Ohio Regional HospitalErythrocyte sedimentation rate by Photometric methodOrdered By: Vlad Gallagher on 51-43-6224GGC Photometric method (Bld) [Velocity]44 mm/hr0-29 [facility] HospitalGlobulin Calc (S) [Mass/Vol]Ordered By: Vlad Gallagher on 05-98-1879Qbiwtons (S) [Mass/Vol]3.0 g/dLMercy Health Allen HospitalGlucose [Mass/volume] in Serum or PlasmaOrdered By: Vlad Gallagher on 38-08-8166Vnreihq [Mass/Vol]86 mg/xB63-150OsnqmfxvaMercy Health Allen Hospital Comment on above:ADA recommended reference rangeRandom Glucose Reference Range is dependent on time and content of last meal. Glucose of more than 200 mg/dL in a nonstressed, ambulatory subject supports the diagnosisof Diabetes Mellitus. Hematocrit Auto (Bld) [Volume fraction]Ordered By: Vlad Gallagher on 01-17-2024 Hematocrit (Bld) [Volume fraction]41.6 %34.0-46.4FEast Ohio Regional HospitalHemoglobin [Mass/volume] in BloodOrdered By: Vlad Gallagher on 01-17-2024 Hemoglobin (Bld) [Mass/Vol]13.8 g/dL11.8-15.4FEast [facility] Hospital Leukocytes [#/volume] corrected for nucleated erythrocytes in Blood by Automated counOrdered By: Vlad Gallagher on 52-60-3183RWP corrected for nucl RBC Auto (Bld) [#/Vol]6.2 10*3/uL3.8-11.6FEast [facility] Regional HospitalLymphocytes Auto (Bld) [#/Vol]Ordered By: Vlad Gallagher on 06-13-5035Aipomucslzv (Bld) [#/Vol]1.5 10*3/uL1.00-4.8[facility] HospitalLymphocytes/100 WBC Auto (Bld)Ordered By: Vlad Gallagher on 43-94-9780Mtuwpyrkwwh/100 WBC (Bld)23.4 %.[facility] HospitalMCH Auto (RBC) [Entitic mass]Ordered By: Vlad Gallagher on 29-23-7270IMU (RBC) [Entitic mass]31.1 pg24.7-34.3FEast [facility] Regional HospitalMCHC Auto (RBC) [Mass/Vol]Ordered By: Vlad Gallagher on 67-40-4710ZZNN (RBC) [Mass/Vol]33.1 g/dL32.0-35.0[facility] HospitalMCV Auto (RBC) [Entitic vol]Ordered By: Vlad Gallagher on 14-12-6659APT (RBC) [Entitic vol]93.9 pP31-814PjqevtyenMercy Health Allen HospitalMagnesium [Mass/volume] in Serum or PlasmaOrdered By: Vlad Gallagher on 01-17-2024 Magnesium [Mass/Vol]2.1 mg/dL1.9-2.7FEast [facility] Regional HospitalMonocytes Auto (Bld) [#/Vol]Ordered By: Vlad Gallagher on 14-41-2144Ozecazjfy (Bld) [#/Vol]0.6 10*3/uL0.0-0.8[facility] HospitalMonocytes/100 WBC Auto (Bld)Ordered By: Vlad Gallagher on 15-38-4325Ffgtmybos/100 WBC (Bld)10.3 %. [facility] HospitalNeutrophils Auto (Bld) [#/Vol]Ordered By: Vlad Gallagher on 12-25-6421Sfqmatanjvq (Bld) [#/Vol]3.9 10*3/uL1.8-7.7FEast Ohio Regional HospitalNeutrophils/100 WBC Auto (Bld)Ordered By: Vlad Gallagher on 59-01-9721Kmlsdzwqsru/100 WBC (Bld)62.8 %.[facility] No Panel InformationOrdered By: Vlad Gallagher on 04-85-5657Hdgr-Nuclear Antibody Comment 2See comment.[facility] HospitalComment on above: Pattern Potential Disease Association Homogeneous Systemic Lupus Erythematosus, Drug Induced Systemic Lupus Erythematosus, Chronic Autoimmune hepatitis, Juvenile Idiopathic Arthritis Speckled Sjogren Syndrome, Systemic Lupus Erythematosus, Subacute Cutaneous Lupus, Lupus, Congenital Heart Block, Mixed Connective Tissue Disease, Scleroderma-diffuse, Scleroderma- Autoimmune Myositis Overlap Syndrome, Systemic Lupus Xyzxqfjdkhmqm-Ukdofaslkat-Uwdmvqxwll Myositis Overlap Syndrome, Systemic Autoimmune Rheumatic Disease, Undifferentiated Connective Tissue Disease Nucleolar Systemic Sclerosis, Scleroderma-Autoimmune Myositis Overlap Syndrome, Sjogren Syndrome, Raynaud phenomenon, Pulmonary Arterial Hypertension, Systemic Autoimmune Rheumatic Disease, Cancer Centromere Scleroderma-CREST, Limited Cutaneous SSc, Raynaud's Phenomenon, Primary Biliary Cholangit is Nuclear Dot Primary Biliary Cholangitis Nuclear Primary Biliary Cholangitis, AutoimmuneMembrane Hepatitis/Liver disease, Systemic Autoimmune Rheumatic Disease, Autoimmune Cytopenias, Linear Scleroderma, Antiphospholipid Syndrome Performed at: [facility] [place] [id number] Director: Haresh Obregon PhD, Phone: [phone] GFR (CKD-EPI)> 60.0 mL/MinMercy Health Allen HospitalPharmacy Creatinine Clearance (ChemN/AFEast Ohio Regional HospitalNucleated erythrocytes [Presence] in Blood by Automated count Ordered By: Vlad Gallagher on 56-62-9039Qwbsltqwa RBC Auto Ql (Bld)0.1 /100{WBC} 0-0.5FEast Ohio Regional HospitalParathyrin.intact [Mass/volume] in Serum or PlasmaOrdered By: Vlad Gallagher on 75-05-7744Mxmskwkngh.intact [Mass/Vol] 40.8 pg/pF36-79BzwscjnclMercy Health Allen HospitalPhosphate [Mass/volume] in Serum or PlasmaOrdered By: Vlad Gallagher on 08-69-7051Mshmitcni [Mass/Vol]2.6 mg/dL 2.5-4.5FEast Ohio Regional HospitalPlatelet mean volume Auto (Bld) [Entitic vol]Ordered By: Vlad Gallagher on 86-00-5322Eijunwsf mean volume (Bld) [Entitic vol]10.2 fL6.3-10.7FEast Ohio Regional HospitalPlatelets Auto (Bld) [#/Vol]Ordered By: Vlad Gallagher on 92-33-6616Lohrlecki (Bld) [#/Vol]238 10*3/qS087-496RcxzfmviaMercy Health Allen HospitalPotassium [Moles/volume] in Serum or PlasmaOrdered By: Vlad Gallagher on 89-73-0873Szffuddmg [Moles/Vol]4.2 mmol/L3.5-5.1FEast Ohio Regional HospitalProtein [Mass/volume] in Serum or PlasmaOrdered By: Vlad Gallagher on 58-76-6214Lhzttiu [Mass/Vol]7.3 g/dL6.4-8.9 [facility] HospitalRBC Auto (Bld) [#/Vol]Ordered By: Vlad Gallagher on 23-70-6634LNO (Bld) [#/Vol]4.43 10*6/uL3.60-5.00[facility] Healtherum nuclear antibody titerOrdered By: Vlad Gallagher on 61-70-2102Eubdqnt Ab (S) [Titer]Positive.[facility] Comment on above:Negative <1:80 Borderline 1:80 Positive >1:80Serum or plasma albumin/globulin mass ratioOrdered By: Vlad Gallagher on 01-17-2024 Albumin/Globulin [Mass ratio]1.4 {ratio}[facility] Healtherum or plasma anion gap determinationOrdered By: Vlad Gallagher on 82-38-0861Cmmhh gap [Moles/Vol]8.2 mmol/L6.0-15.0[facility] Healtherum speckled pattern antinuclear antibody (ESTUARDO) titerOrdered By: Vlad Gallagher on 75-59-6589Zmqrpegh nuclear Ab pattern (S) [Titer]1:160.[facility] HospitalComment on above:ICAP nomenclature: AC-2,4,5,29Sodium [Moles/volume] in Serum or PlasmaOrdered By: Vlad Gallagher on 99-28-8952Msxkkg [Moles/Vol]137 mmol/O003-868CmrnyrwvzMercy Health Allen HospitalThyrotropin [Units/volume] in Serum or PlasmaOrdered By: Vlad Reganmagnolia on 48-54-3589IMK Qn 3.40 m[IU]/L0.45-5.33[facility] HospitalUrea nitrogen [Mass/volume] in Serum or PlasmaOrdered By: Vlad Reganmagnolia on 40-27-1530Faci nitrogen [Mass/Vol]24 mg/dL7-25Mer[facility] HospitalWBC Auto (Bld) [#/Vol]Ordered By: Vlad Reganmagnolia on 52-37-9569DFD (Bld) [#/Vol]6.2 10*3/uL 3.8-11.6FEast Ohio Regional HospitalXR Knee - left 4 Viewson 10-29-2023 IMPRESSION: 1. Degenerative arthrosis of both knees, LEFT greater than RIGHT. Assistant Manager Bilingual: MARKEL Transcribe Date/Time: Oct 29 2023 12:25P Dictated by : DARLENE SPRINGER MD This examination was interpreted and the report reviewed and electronically signed by: DARLENE SPRINGER MD on Oct 29 2023 12:27PM [facility] [[email or web address]] DIVISION OF RADIOLOGY* * *Final Report* * * DATE OF [...] is demonstrated on the RIGHT. DIVISION OF RADIOLOGYProvider, [facility] [place] - 10/29/2023 * * *Final Report* * [...] of both knees, LEFT greater than RIGHT. Assistant Manager Bilingual: MARKEL Transcribe Date/Time: Oct 29 2023 12:25P Dictated by : DARLENE SPRINGER MD This examination was interpreted and the report reviewed and electronically signed by: DARLENE SPRINGER MD on Oct 29 2023 12:27PM EST [facility] HospitalRadiology Study observation (narrative)[facility]XR K[facility] - left 4 ViewsOrdered By: Ccf Provider on 28-32-0125Vexcalexr ClinicPT INTACTon 59-77-0498RSG, Oyadpm40 pg/nWQxshdb58-32Lib [facility] Comment on above:Performed By: #### PTHINT #### [facility] [address] [address] [address] Noris DuenasMAGNESIUMon 39-66-8798Cbedjddoe [Mass/Vol]2.0 mg/dLNormal1.8-2.4 The [facility] CenterComment on above:Performed By: #### PHOS, MG, BMP ####[facility] [address] [address]Dr. Noris DuenasPHOSPHORUSon 29-75-5967Xamhnrbqv [Mass/Vol]3.5 mg/dLNormal2.6-4.7The [facility] CenterComment on above:Performed By: #### PHOS, MG, BMP ####[facility] [address] [address]DrLucila DuenasPROF CHEM 8 (BAS METB)on 52-65-1061Jrslq gap [Moles/Vol]12.0 mmol/LNormalThe [facility] CenterComment on above:Performed By: #### PHOS, MG, BMP #### [facility] [address] [place] [address] Dr. Noris DuenasCalcium [Mass/Vol]9.4 mg/dLNormal8.5-10.1The [facility] Comment on above:Performed By: #### PHOS, MG, BMP #### [facility] [address] [place] [address] Dr. Noris DuenasChloride [Moles/Vol]103 mmol/MAhuxbn97-551GunBucyrus Community Hospital Comment on above:Performed By: #### PHOS, MG, BMP #### [facility] [address] [place] [address] Dr. Noris DuenasCO2 [Moles/Vol]29.0 mmol/NZhfkng90.0-32.0The [facility] Comment on above:Performed By: #### PHOS, MG, BMP #### [facility] [address] [place] [address] Dr. Noris DuenasCreatinine [Mass/Vol]0.70 mg/dLNormal0.55-1.02The [facility] CenterComment on above:Performed By: #### PHOS, MG, BMP #### [facility] [address] [place] [address] Dr. Noris HaskinsGFR-AF TOGOLESE>60Normal>=60The [facility] CenterComment on above:Performed By: #### PHOS, MG, BMP #### [facility] [address] [place] [address] Dr. Noris HaskinsGFR-NON AF TOGOLESE>60Normal>=60The [facility] CenterComment on above:Performed By: #### PHOS, MG, BMP #### [facility] [address] [place] [address] Dr. Noris DuenasGlucose [Mass/Vol]95 mg/uZTzipqw90-287Iqo [facility] Comment on above:Performed By: #### PHOS, MG, BMP #### [facility] [address] [place] [address] Dr. Noris DuenasPotassium [Moles/Vol]4.0 mmol/LNormal3.5-5.1[facility] Comment on above:Performed By: #### PHOS, MG, BMP #### [facility] [address] [place] [address] Dr. Noris DuenasSodium [Moles/Vol]140 mmol/UPiyclb522-051Anh [facility] Comment on above:Performed By: #### PHOS, MG, BMP #### [facility] [address] [place] [address] Dr. Noris DuenasUrea nitrogen [Mass/Vol]17.0 mg/dLNormal7.0-18.0Bu[facility]rus Community HospitalComment on above:Performed By: #### PHOS, MG, BMP #### [facility] [address] [place] [address] Dr. Noris Kurtz nitrogen/Creatinine [Mass ratio]24.3 mg/mgNoSt. John of God HospitalComment on above:Performed By: #### PHOS, MG, BMP #### [facility] [address] [place] [address] Dr. Noris DuenasVITAMIN D 25 OHon 30-34-4668AGS D 25-OH76.9 ng/mLNormalBucyrus Community HospitalComment on above:Performed By: #### VITAD #### [facility] [address] [place] [address] Dr. Noris Brock RANGESSEE BELOWSheltering Arms HospitalComment on above: Result Comment: <20 ng/mL Vit D deficient 20 - <30 ng/mL Vit D insufficient 30 - 100 ng/mL Vit D sufficient >100 ng/mL Potential ToxicityPerformed By: #### VITAD #### [facility] [address] [place] [address] Dr. Noris Hogue KNEE GENERAL 4V AP BOTH/PA BOTH/LAT/MERC LEFTon 06-09-2022 [facility] HospitalXR Knee - left 4 Viewson 02-02-2586OSXUAXFWWZ: Left knee osteoarthritis as described. Assistant Manager Bilingual: MARKEL Transcribe Date/Time: Jun 09 2022 1:58P Dictated by : HEBER CAMACHO MD This examination was interpreted and the report reviewed and electronically signed by: HEBER CAMACHO MD on Jun 09 2022 1:58PM [facility] [[email or web address] DIVISION OF RADIOLOGY* * *Final Report* * * DATE OF [...] effusion. No other significant abnormality. DIVISION OF RADIOLOGYProvider, [facility] [place] - 06/09/2022 * * *Final Report* * [...] IMPRESSION IMPRESSION: Left knee osteoarthritis as described. Assistant Manager Bilingual: MARKEL Transcribe Date/Time: Jun 09 2022 1:58P Dictated by : HEBER CAMACHO MD This examination was interpreted and the report reviewed and electronically signed by: HEBER CAMACHO MD on Jun 09 2022 1:58PM EST [facility] HospitalRadiology Study observation (narrative)[facility] CenterXR Knee - left 4 ViewsOrdered By: Ccf Provider on 99-79-1046Myhimmjhu ClinicCBC AUTO DIFF on 98-73-2268KLUJ #0.0 103/ulNormal0.0-0.1The [facility] CenterComment on above: Performed By: #### CBC #### [facility] [address] [address] [address] Noris DuenasBasophils/100 WBC (Bld)0.8 %Normal0.2-2.0The [facility] Comment on above:Performed By: #### CBC #### [facility] [address] [address] [address] Noris Chavez #0.2 103/ulNormal0.0-0.7The [facility] CenterComment on above: Performed By: #### CBC #### [facility] [address] [address] [address] Noris Haskinsosinophils/100 WBC (Bld)3.8 %Normal0.9-7.0The [facility] Comment on above:Performed By: #### CBC #### [facility] [address] [place] [address] Dr. Noris Haskinsrythrocyte distribution width (RBC) [Ratio]13.2 %Ipxene29.0-15.0 The [facility] CenterComment on above:Performed By: #### CBC #### [facility] [address] [address] [address] Noris DuenasHematocrit (Bld) [Volume fraction]41.2 %Zrgfdh96.0-48.0The [facility] CenterComment on above:Performed By: #### CBC #### [facility] [address] [place] [address] Dr. Noris DuenasHemoglobin (Bld) [Mass/Vol]13.2 g/vWNsvgrb82.0-16.0The [facility] CenterComment on above:Performed By: #### CBC #### [facility] [address] [place] [address] Dr. Noris Wright #0.01 10e3/ulNormal0.00-0.03The [facility] on above:Performed By: #### CBC #### [facility] [address] [place] [address] Dr. Noris Wright %0.2 %Normal0.0-0.5The [facility] CenterComment on above: Performed By: #### CBC #### [facility] [address] [place] [address] Dr. Noris Taylor #1.7 103/ulNormal1.2-3.8The [facility] CenterComment on above:Performed By: #### CBC #### [facility] [address] [place] [address] Dr. Noris Madrigalhocytes/100 WBC (Bld)35.0 %Utwfom08.5-60.0The [facility] on above:Performed By: #### CBC #### [facility] [address] [place] [address] Dr. Noris CandelariaUAL DIFF REQNONormalThe [facility] CenterComhavenwyck hospital on above: Performed By: #### CBC #### [facility] [address] [place] [address] Dr. Noris Rizzo (RBC) [Entitic mass]30.3 qjSnuejd01.7-34.0The [facility] on above:Performed By: #### CBC #### [facility] [address] [place] [address] Dr. Noris Rizzo (RBC) [Mass/Vol]32.0 g/tKPcwkrm22.9-35.2The [facility] CenterComhavenwyck hospital on above:Performed By: #### CBC #### [facility] [address] [place] [address] Dr. Noris Rizzo (RBC) [Entitic vol]94.5 jBOyvprh22.0-99.0The [facility] CenterComment on above:Performed By: #### CBC #### [facility] [address] [address] [address] Noris Dugan #0.6 103/ulNormal0.3-0.8The [facility] CenterComment on above:Performed By: #### CBC #### [facility] [address] [place] [address] Dr. Noris DuenasMonocytes/100 WBC (Bld)13.4 %Critically high1.7-12.0The [facility] CenterComment on above:Performed By: #### CBC #### [facility] [address] [place] [address] Dr. Noris Chavira #2.2 103/ulNormal1.4-6.5The [facility] CenterComment on above:Performed By: #### CBC #### [facility] [address] [place] [address] Dr. Noris Lynnutrophils/100 WBC (Bld)46.8 %Eqckqg93.0-75.0The [facility] CenterComment on above:Performed By: #### CBC #### [facility] [address] [place] [address] Dr. Noris Acevedo mean volume (Bld) [Entitic vol]10.7 fLNormal9.5-13.5The [facility] CenterComhavenwyck hospital on above:Performed By: #### CBC #### [facility] [address] [place] [address] Dr. Noris DuenasPLT237 103/zpBgvbcr478-740Lvp [facility] CenterComment on above: Performed By: #### CBC #### [facility] [address] [place] [address] Dr. Noris DuenasRBC4.36 106/ulNormal4.20-5.40The [facility] on above:Performed By: #### CBC #### [facility] [address] [place] [address] Dr. Noris DuenasWBC4.8 103/ulNormal4.0-11.0The [facility] CenterComment on above: Performed By: #### CBC #### [facility] [address] [address] [address] Noris Horton 76-52-5819JXN [Mass/Vol]mg/LNormal<=1.0The [facility] CenterComment on above:Performed By: #### CMP, LIPID, CRP #### [facility] [address] [address] [address] Noris RiberaID PROFILEon 40-99-0824ZRBN-HDL RATIO NORMSEE BELOWNoSt. John of God HospitalComment on above:Result Comment: 3.3 - 4.4 LOW RISK 4.4 - 7.1 AVERAGE RISK 7.1 - 11.0 MODERATE RISK >11.0 HIGH RISKPerformed By: #### CMP, LIPID, CRP #### [facility] [address] [place] [address] Dr. Noris DuenasCholesterol [Mass/Vol]193 mg/dLNormal<=200The [facility] Comment on above:Performed By: #### CMP, LIPID, CRP #### [facility] [address] [address] [address] Noris Andradeesterol in HDL [Mass/Vol]56 mg/kRNxatje42-28Tni [facility] CenterComment on above:Performed By: #### CMP, LIPID, CRP #### [facility] [address] [address] [address] Noris DuenasCholesterol in LDL [Mass/Vol]105.6 mg/dLSheltering Arms HospitalComment on above:Performed By: #### CMP, LIPID, CRP #### [facility] [address] [address] [address] Noris Andradeesterkobe.total/Cholesterol in HDL [Mass ratio]3.4 {ratio} NormalThe [facility] CenterComment on above:Performed By: #### CMP, LIPID, CRP #### [facility] [address] [place] [address] Dr. Noris DuenasHDHugh NORMAL> or = 60 mg/dl - LOW CARDIOVASCULAR RISK <40 mg/dl - HIGH CARDIOVASCULAR RISKSheltering Arms HospitalComment on above:Performed By: #### CMP, LIPID, CRP #### [facility] [address] [address] [address] Noris DuenasLDL CALC NORMALSEE BELOWSheltering Arms HospitalComment on above:Result Comment: <100 mg/dl OPTIMAL 100 - 129 mg/dl NEAR OR ABOVE OPTIMAL 130 - 159 mg/dl BORDERLINE HIGH 160 - 189 mg/dl HIGH >190 mg/dl VERY HIGH Performed By: #### CMP, LIPID, CRP #### [facility] [address] [address] [address] Noris DuenasTriglyceride [Mass/Vol]157 mg/dLCritically high<=150The [facility] on above:Performed By: #### CMP, LIPID, CRP #### [facility] [address] [place] [address] Dr. Noris DuenasVLDL CALC31.4 mg/dLNoSt. John of God HospitalComment on above: Performed By: #### CMP, LIPID, CRP #### [facility] [address] [place] [address] Dr. Noris DuenasPROF 14(COMP METB)on 84-35-5880Eoqhpjh [Mass/Vol]3.7 g/dLNormal 3.4-5.0The [facility] on above:Performed By: #### CMP, LIPID, CRP #### [facility] [address] [place] [address] Dr. Noris DuenasAlbumin/Globulin [Mass ratio]1.0 {ratio}NormalThe [facility] on above:Performed By: #### CMP, LIPID, CRP #### [facility] [address] [place] [address] Dr. Noris SinclairP [Catalytic activity/Vol]60 U/BVajyla38-959Aoo [facility] on above:Performed By: #### CMP, LIPID, CRP #### [facility] [address] [place] [address] Dr. Noris SinclairT [Catalytic activity/Vol]30 U/CJzludj02-65Lny [facility] on above:Performed By: #### CMP, LIPID, CRP #### [facility] [address] [address] [address] Noris DuenasAnion gap [Moles/Vol]10.4 mmol/LNormalBucyrus Community Hospital Comment on above:Performed By: #### CMP, LIPID, CRP #### [facility] [address] [address] [address] Noris DuenasAST [Catalytic activity/Vol]23 U/BAxgtlz94-38Qwb [facility] CenterComment on above:Performed By: #### CMP, LIPID, CRP #### [facility] [address] [address] [address] Noris DuenasBilirubin [Mass/Vol]0.3 mg/dLNormal0.2-1.0The [facility] Comment on above:Performed By: #### CMP, LIPID, CRP #### [facility] [address] [address] [address] Noris DuenasCalcium [Mass/Vol]9.4 mg/dLNormal8.5-10.1[facility] Comment on above:Performed By: #### CMP, LIPID, CRP #### [facility] [address] [address] [address] Noris DuenasChloride [Moles/Vol]103 mmol/FBspixa36-857Cxj [facility] Comment on above:Performed By: #### CMP, LIPID, CRP #### [facility] [address] [address] [address] Noris DuenasCO2 [Moles/Vol]27.7 mmol/BKrbphr95.0-32.0The [facility] Comment on above:Performed By: #### CMP, LIPID, CRP #### [facility] [address] [address] [address] Noris DuenasCreatinine [Mass/Vol]0.91 mg/dLNormal0.55-1.02The [facility] CenterComment on above:Performed By: #### CMP, LIPID, CRP #### [facility] [address] [address] [address] Hamm ChangEGFR-AF TOGOLESE>60Normal>=60The [facility] CenterComment on above:Performed By: #### CMP, LIPID, CRP #### [facility] [address] [place] [address] Dr. Noris Rodríguez-NON AF TOGOLESE>60Normal>=60The [facility] CenterComment on above:Performed By: #### CMP, LIPID, CRP #### [facility] [address] [address] [address] Noris DuenasGlobulin (S) [Mass/Vol]3.7 g/dLNormalThe [facility] Medical CenterComment on above:Performed By: #### CMP, LIPID, CRP #### [facility] [address] [place] [address] Dr. Noris DuenasGlucose [Mass/Vol]101 mg/cPJocgud79-508IdiBucyrus Community Hospital Comment on above:Performed By: #### CMP, LIPID, CRP #### [facility] [address] [place] [address] Dr. Noris DuenasPotassium [Moles/Vol]4.1 mmol/LNormal3.5-5.1[facility] Comment on above:Performed By: #### CMP, LIPID, CRP #### [facility] [address] [place] [address] Dr. Noris DuenasProtein [Mass/Vol]7.4 g/dLNormal6.4-8.2[facility] Comment on above:Performed By: #### CMP, LIPID, CRP #### [facility] [address] [place] [address] Dr. Noris DuenasSodium [Moles/Vol]137 mmol/KYfbcym449-204TglBucyrus Community Hospital Comment on above:Performed By: #### CMP, LIPID, CRP #### [facility] [address] [place] [address] Dr. Noris DuenasUrea nitrogen [Mass/Vol]19.0 mg/dLCritically high7.0-18.0The [facility] CenterComment on above:Performed By: #### CMP, LIPID, CRP #### [facility] [address] [place] [address] Dr. Noris DuenasUrea nitrogen/Creatinine [Mass ratio]20.9 mg/mgNormalThe [facility] CenterComment on above:Performed By: #### CMP, LIPID, CRP #### [facility] [id number] Noris DuenasSED RATE WESTERGRENon 52-59-3931JQX RATE32 mm/hrCritically high <=30The [facility] CenterComment on above:Performed By: #### SEDR ####[facility] [address] [address]. Noris Duenas Covid-19 PCR (CVDTBH)on 07-47-6633RCAZ-CoV-2 (COVID-19) RNA EUSEBIO+probe Ql (Unsp spec)Not detectedNormalNOT DETECTEDThe [facility] CenterComhavenwyck hospital on above:Result Comment: This test is not yet approved or cleared by the [place] FDA. When there are no FDA-approved or cleared tests available, and other criteria are met, FDA can make tests available under an emergency access mechanism called an Emergency Use Authorization (EUA). The EUA for this test is supported by the [place] of Health and Human Service's (HHS's) declaration [...] of clinical signs and symptoms consistent with SARS-CoV-2.Performed By: #### CVDTBH #### [facility] [address] [address] [address] Noris DuenasXR Knee - left 4 Viewson 56-45-8526VYJMHJKDXD: Moderate osteoarthritis left knee similar to 2019. Assistant Manager Bilingual: MARKEL Transcribe Date/Time: Jan 21 2021 1:23P Dictated by : SILVIO JAMES, DO This examination was interpreted and the report reviewed and electronically signed by: ALEX ZAMUDIO MD on Jan 21 2021 2:17PM [facility] [email or web address]] DIVISION OF RADIOLOGY* * *Final Report* * * DATE OF [...] compartment with mild-moderate degenerative changes. DIVISION OF RADIOLOGYProvider, [facility] [place] - 01/21/2021 * * *Final Report* * [...] Moderate osteoarthritis left knee similar to 2019. Assistant Manager Bilingual: MARKEL Transcribe Date/Time: Jan 21 2021 1:23P Dictated by : SILVIO JAMES DO This examination was interpreted and the report reviewed and electronically signed by: ALEX ZAMUDIO MD on Jan 21 2021 2:17PM EST [facility] HospitalRadiology Study observation (narrative)[facility] HospitalXR Knee - left 4 ViewsOrdered By: Ccf Provider on 05-28-4610Bwtwmbsfx ClinicNo Panel InformationAshtabula General Hospital Vital Signs Date TimeVital SignValuePerforming SdkdcwhfkJzgoyijk22-60-6469 08:56-0400Body nqyonj451.02 cmBenjamin Ball DO Work Phone: 1(956)[address]10-02-2025 08:56-0400 Body mass index (BMI) [Ratio]24.5 kg/k1Cdfiiafj Ball DO Work Phone: 1(392)[address] [place], [place] 6127010-02-2025 08:56-0400 Body dfulgu45.7 kgBenjamin Ball DO Work Phone: 1(554)[address] [place], [place] 6127010-02-2025 08:56-0400 Diastolic blood pczzyxpe46 mm[Hg]Piyush Ball DO Work Phone: 1(928)[address] [place], [place] 6127010-02-2025 08:56-0400 Heart rate75 /minBenjamin Ball DO Work Phone: 1(620)[address] [place], [place] 6127010-02-2025 08:56-0400 Respiratory rate12 /minBenjamin Ball DO Work Phone: 1(031)[address] [place], [place] 6127010-02-2025 08:56-0400 Systolic blood vluehyog340 mm[Hg]Piyush Ball DO Work Phone: 1(008)[address] [place], [place] 6127009-16-2025 11:44-0400 Body rgquyl679.02 cmSussy Johnson MD Work Phone: 1(708)[address] [place], [place] 6127009-16-2025 11:44-0400 Body mass index (BMI) [Ratio]24 kg/s9ZctsohSussy Johnson MD Work Phone: 1(822)[address] [place], [place] 6127009-16-2025 11:44-0400 Body iiqwks61.4 kgSussy Johnson MD Work Phone: 1(853)[address]09-16-2025 11:44-0400 Diastolic blood mm[Hg]Sussy Johnson MD Work Phone: 1(614)[address] [place], [place] 6127009-16-2025 11:44-0400 Heart rate72 /Tara Johnson MD Work Phone: 1(743)[address] [place], [place] 6127009-16-2025 11:44-0400 Respiratory rate12 /Tara Johnson MD Work Phone: 1(217)[address]09-16-2025 11:44-0400 Systolic blood ojsmjyjr198 mm[Hg]Sussy Johnson MD Work Phone: 1(096)[address] [place], [place] 6127009-05-2025 09:32-0400 Body bjpimu319.02 cmSussy Johnson MD Work Phone: 1(892)[address] [place], [place] 6127009-05-2025 09:32-0400 Body mass index (BMI) [Ratio]24.3 kg/z9BlyxiySussy Johnson MD Work Phone: 1(317)[address] [place], [place] 6127009-05-2025 09:32-0400 Body kmqpqi40.14 kgSussy Johnson MD Work Phone: 1(078)[address] [place], [place] 6127009-05-2025 09:32-0400 Diastolic blood chfzlvna90 mm[Hg]Sussy Johnson MD Work Phone: 1(855)[address] [place], [place] 6127009-05-2025 09:32-0400 Heart rate64 /Tara Johnson MD Work Phone: 1(673)[address]09-05-2025 09:32-0400 Respiratory rate12 /Tara Johnson MD Work Phone: 1(262)[address] [place], [place] 6127009-05-2025 09:32-0400 Systolic blood sjymfrrx791 mm[Hg]Sussy Johnson MD Work Phone: 1(669)[address] [place], [place] 6127009-16-2024 13:39-0400 Body .02 cmMD Sussy Johnson Work Phone: [facility]09-16-2024 13:39-0400 Body mass index (BMI) [Ratio]24.4 kg/m2MD Sussy Johnson Work Phone: [facility]09-16-2024 13:39-0400 Body xncenz91.59 kgMD Sussy Johnson Work Phone: [facility]09-16-2024 13:39-0400 Diastolic blood yncoajwq30 mm[Hg]MD Sussy Johnson Work Phone: [facility]09-16-2024 13:39-0400 Heart rate61 /minMD Sussy Johnson Work Phone: [facility]09-16-2024 13:39-0400 Respiratory rate12 /minMD Sussy Johnson Work Phone: [phone]09-16-2024 13:39-0400 Systolic blood ydpcxlrm396 mm[Hg]MD Sussy Johnson Work Phone: [facility]11-28-2023 09:30-0500 Body hwmyqo106.02 cmSussy Johnson Other [facility] Other 728804-22-9562 09:30-0500Body mass index (BMI) [Ratio] 23.95 kg/a9MogwfoSussy Johnson Other [facility] Other 11-28-2023 09:30-0500Body sweyes07.33 kgSussy Johnson Other [facility] Other 11-28-2023 09:30-0500Diastolic blood txvyzqqb15 mm[Hg] Sussy Johnson Other [facility] Other 11-28-2023 09:30-0500Systolic blood kosyeajt170 mm[Hg] Sussy Johnson Other [facility] Other Encounters Encounter DateEncounter TypeCare ProviderFacilityStart: 07-02-2025 End: 30-01-3934Divmsa Nancy Roberto DeleonLiz PT Work Phone: noms [employer] [facility] FremontStart: 07-02-2025 End: 63-10-2745Tqgovm Nancy Mejia Liz PT Work Phone: [facility]Start: 07-02-2025 End: 61-29-2472wwtekvyigsAuuy J Liz PT Work Phone: noms [facility] FremontComment on above:Chronic left-sided low back pain without sciatica (Primary Dx); Primary osteoarthritis of left hipStart: 06-22-2025 End: 13-96-0980qrupbfyibrFAOPZVOJF CLAPPFacility:[facility] Healthcaretart: 06-19-2025 End: 23-58-5766tlhenxkynpWLOENXDFB CLAPPFacility:[facility] Healthcaretart: 05-31-2025 End: 09-05-0788gfzlhwpnnfZvqgsrjj Hao DO Work Phone: [facility] Work Phone: Start: 05-31-2025 End: 07-67-3683Ahdfbnq encounter procedureBeprema Hao DO-[facility] Work Phone: Start: 05-15-2025 End: 09-90-6305qtnoltlrjfJeldlb E Braun MD Work Phone: [facility] Work Phone: Start: 05-15-2025 End: 51-37-9285Krgxuka encounter procedureBenabhilash Hao DO-[facility] Work Phone: Start: 05-15-2025 End: 74-15-6697Pgwzhme encounter statusBeprema Bui [facility] Hospitaltart: 44-20-5758Pab-patient / Non-visitBenjadebi Bui DO-[facility] Work Phone: Start: 05-04-2025 End: 57-58-2901rfvkfunrsaYjtvor E Braun MD Work Phone: [facility] Work Phone: Start: 05-04-2025 End: 69-56-5266Worugos encounter procedureBeedisondebi Bui DO-[facility] Work Phone: Start: 02-21-2025 End: 20-05-4762Qggidwk encounter procedureMartine Cade BUSINESS OFFICE ASSOCIATE-C-[address] Work Phone: Start: 02-21-2025 End: 79-23-2764sxllfdxfnxWmxzff E Braun MD Work Phone: [facility] Work Phone: Start: 02-13-2025 End: 36-48-6453looklkaxrpRplnbdm Troyer PT Work Phone: [facility] TherapyComment on above:Pain in joint of right shoulder (Primary Dx)Start: 01-24-2025 End: 82-15-0902yapsxqsybjRtgeulx Troyer PT Work Phone: [facility] TherapyComment on above:Pain in joint of right shoulder (Primary Dx)Start: 01-05-2025 End: 67-86-6551Mvdmdme encounter procedureTrgurwinder Ford RT(R)RadiologyComment on above:Primary osteoarthritis of right shoulder (Primary Dx); Tendinopathy of right rotator cuff; Cervicalgia; Impingement syndrome of left shoulderStart: 01-05-2025 End: 90-39-5570ksphdxdcsmOpjiol A Radman RT(R)RadiologyComment on above: Radiology XRPain in joint of right shoulder (Primary Dx); Primary osteoarthritis of right shoulder; Tendinopathy of right rotator cuff; Cervicalgia; Impingement syndrome of left shoulderStart: 01-05-2025 End: 48-84-9469Mcvispluhx hospital visit by physicianMaryjo Cole 1 Work Phone: RadiologyComment on above:Pain of both shoulder joints [M25.511, M25.512]Start: 12-15-2024 End: 15-19-9334Ilokrxb encounter procedureGarrison Lee PA-C Work Phone: OrthopaedicsComment on above:Primary osteoarthritis of left knee (Primary Dx); Primary osteoarthritis of right kneeStart: 12-15-2024 End: 09-44-2196opcnmfwolcTBLRFBLDC CLAPPFacility:[facility] Healthcaretart: 07-25-2024 End: 93-61-4548dhixvyutjcJHMRZLCHL CLAPPFacility:[facility] Healthcaretart: 07-25-2024 End: 55-77-4512Dimlxtt encounter procedureNatfarrukh MINA-C Work Phone: OrthopaedicsComment on above:Primary osteoarthritis of left knee (Primary Dx); Primary osteoarthritis of right kneeStart: 05-15-2024 End: 73-61-8423aqdlxkzjzoOD Marcia E Braun Work Phone: [facility] Work Phone: Start: 05-15-2024 End: 65-56-2260Pkbqxuqvo for general adult medical examination without abnormal findingsMD Sussy Johnson Work Phone: [facility]: 05-15-2024 End: 17-48-4685Ygixdes encounter procedureMD Sussy Johnson Work Phone: [facility] Work Phone: Start: 21-10-4101Perjpsi encounter statusMD Sussy Johnson Work Phone: [facility]: 02-15-2024 End: 57-54-5112jyzoygwlcnJA Marcia E Braun Work Phone: [facility] Work Phone: Start: 02-15-2024 End: 97-56-7866Vqlvucs encounter procedureMD Sussy Johnson Work Phone: [facility] [address] Work Phone: Start: 62-62-1032Qku-patient / Non-visitMD Sussy Johnson Work Phone: [facility] Work Phone: Start: 01-17-2024 End: 02-46-4598kboortcvmtFD Sussy Johnson Work Phone: [facility] Work Phone: Start: 01-17-2024 End: 12-90-8510Kufasqi encounter procedureMD Sussy Johnson Work Phone: [facility] Work Phone: Start: 15-29-6010cvwggirrdmKfdnnb A Radman RT(R) RadiologyComment on above:Radiology XRStart: 10-29-2023 End: 96-23-0053Dndgafw encounter procedureTrgurwinder Ford RT(R)[facility] Comment on above:Primary osteoarthritis of left knee (Primary Dx); It band syndrome, leftStart: 10-29-2023 End: 65-64-6197Cfpymmxzqe hospital visit by physicianMaryjo Cole 1 Work Phone: RadiologyComment on above:Primary osteoarthritis of left knee [M17.12]Start: 08-04-2023 End: 73-07-6590aqhynxgkcvOdsutp Braun Other [facility] Other Start: 14-10-1914Cfrpkrnec encounterMarfredis [facility]akan[facility] Hospitaltart: 07-27-2023 End: 75-26-2700zxgwpsiefpYbmpgn Braun Other [facility] Other Start: 81-40-5072Wndaemzqn for general adult medical examination without abnormal findingsMarcia [facility] Hospitaltart: 23-36-9695Jtfsddpt preventive med est patient 40-64yrsMarcia [facility]akan[facility] Hospitaltart: 03-03-2023 End: 71-08-0179Lqtszvs encounter procedureNatfarrukh Rsoa PA-C Work Phone: OrthopaedicsComment on above:Primary osteoarthritis of left knee (Primary Dx)Start: 55-47-6274xogdiyhtubDZZLFCUR CULLENFacility:H1 Start: 12-02-2022 End: 48-85-3102yzmqzmgjpfCD DONALD ESPINOZARONNIELizzieFacility:A3Fajix: 06-09-2022 End: 12-16-2596Rdvbtus encounter procedureNathaniel Rosa PA-C Work Phone: OrthopaedicsComment on above:Primary osteoarthritis of left knee (Primary Dx)Start: 06-09-2022 End: 95-84-1539Uknegakdig hospital visit by physicianMaryjo Cole 1 Work Phone: RadiologyComment on above:Primary osteoarthritis of left knee [M17.12]Start: 06-02-2022 End: 81-28-5427kxrmfeieynHWVKUIYL CULLENFacility:I4Qwweh: 76-54-2288Fbqqdpgye for general adult medical examination without abnormal findingsDR SUSSY JOHNSON [facility] HospitalStart: 05-18-2022 End: 79-37-9049sezytqqqsoPK SUSSY JOHNSONFacility:C5Ukboh: 05-18-2022 End: 41-03-1875Usurxglgt for general adult medical examination without abnormal findingsDR SUSSY JOHNSONFacility:V4Yhxnl: 02-07-2022 End: 06-89-1009mybbtxzmomPC SUSSY JOHNSONFacility:C0Pcfon: 12-01-2021 End: 07-69-0043Yzdxgty encounter procedureNatfarrukh Lee PA-C Work Phone: OrthopaedicsComment on above:Primary osteoarthritis of left knee (Primary Dx)Start: 01-21-2021 End: 26-65-3015Xwgqhesxkz hospital visit by physicianMaryjo Cole 1 Work Phone: RadiologyComment on above:Primary osteoarthritis of left knee [M17.12] Procedures DateProcedureProcedure DetailPerforming ClinicianStart: 14-87-4393Wtsgnercjrxbhz aspir&/inj major jt/bursa w/o usNathaniel Rosa PA-C Work Phone: Start: 88-31-9258Uxthu shoulder complete minimum 2 viewsNathaniel Rosa PA-C Work Phone: Start: 40-58-6981Kvmazchqpcdiio aspir&/inj major jt/bursa w/o usNathaniel Rosa PA-C Work Phone: Start: 95-88-3568Uvtqsjchhtoizc aspir&/inj major jt/bursa w/o usNathaniel Rosa PA-C Work Phone: Start: 22-47-9275Chmmi X-ray of bilateral handsMD Sussy Johnson Work Phone: Start: 40-96-1012Fdmeceulpf exam knee complete 4/more viewsNathaniel Rosa PA-C Work Phone: Start: 85-63-9624Aigsmvgitrubwr aspir&/inj major jt/bursa w/o usNathaniel Rosa PA-C Work Phone: Start: 95-60-0794Sirzmcvsvt exam knee complete 4/more viewsNathaniel Rosa PA-C Work Phone: Start: 04-46-7590Ffzszbmhpnooan aspir&/inj major jt/bursa w/o usNathaniel Rosa PA-C Work Phone: Start: 29-70-9940Fstvstuzviwzmi aspir&/inj major jt/bursa w/o usNathaniel Rosa PA-C Work Phone: Start: 90-43-3224Wqfstuixad exam knee complete 4/more viewsNathaniel Rosa PA-C Work Phone: Plan of Treatment DateCare ActivityDetailAuthorStart: 17-56-5595PKC Vaccine (1 - 1-dose 75+ series)RSV Vaccine (1 - 1-dose 75+ series)[facility]: 07-02-2025 End: 03-33-3230whmwoialzz83/03/2025 9:00 AM EST Evaluation [facility] [address] [place] [id number] Juan Hill, PT [address] [place] [address] Arrived [facility]nalltComment on above:ArrivedStart: 70-49-3672Pbpildwdj vaccinationInfluenza Vaccine (Season Ended)[facility]art: 02-21-2025 Hemolytic complement CH50 levelKettering Healthtart: 59-71-7374OCX antibody measurementKettering Healthtart: 23-70-9238UyqxyqtukKettering Healthtart: 02-13-2025 End: 72-43-8515fnjvpqfrog15/17/2025 10:45 AM EDT OT/PT/Speech Visit [facility] [address] [place] [address] Selene Buckley, PT [address] [place] [address] Primary osteoarthritis of right shoulder [M19.011][facility] Physical TherapyComment on above:Primary osteoarthritis of right shoulder [M19.011]Start: 01-17-2025 End: 76-89-8956zxgpmxkcor16/21/2025 4:30 PM EDT OT/PT/Speech Visit [facility] [address] [facility] [facility] [place] [address] Selene Buckley, PT [address] [place] [address] Primary osteoarthritis of right shoulder [M19.011][facility] Physical TherapyComment on above:Primary osteoarthritis of right shoulder [M19.011]Start: 01-05-2025 End: 52-38-7122Vliikhe encounter /09/2025 11:00 AM EDT Office Visit [facility] [address] [place] [address] Garrison Lee PA-C [address] [place] [address] Bilateral shoulder painOrthopaedicsComment on above:Bilateral shoulder painStart: 38-77-3957Ldenb-19 Vaccine ( season)Covid-19 Vaccine ( season)[facility]: 68-59-8245Wypta-19 Vaccine ( season)Covid-19 Vaccine ( season)[facility]: 50-69-0870Jsspicrtl vaccinationInfluenza Vaccine (#1)[facility]ustart: 93-91-7493CvaoscvfoKettering Healthtart: 75-22-5151Gtjpajqlzc AssessmentDepression AssessmentSelect [facility] Specialty Hospital - Columbustart: 87-79-2995Dvcgfmdff vaccinationSelect Medical Specialty Hospital - Columbustart: 26-56-1278UQMDFWGGST ASSESSMENTDEPRESSION ASSESSMENTSelect [facility] Columbustart: 99-29-4185Uadxtyhqa vaccinationAshtabula General Hospital Start: 21-85-7635WCAFPWKBDQ ASSESSMENTDEPRESSION ASSESSMENTAshtabula General Hospital Start: 14-57-5703IQW Vaccine (1 - 1-dose 60+ series)RSV Vaccine (1 - 1-dose 60+ series)[facility]: 28-08-9757Idoyqlihwram Vaccine: 50+ (1 of 1 - PCV) Pneumococcal Vaccine: 50+ (1 of 1 - PCV)[facility]: 2010 SHINGRIX VACCINE (1 of 2)SHINGRIX VACCINE (1 of 2)[facility]: 75-29-2000OMZUXRZKI (FIT-DNA)COLOGUARD (FIT-DNA)[facility]art: 66-77-0848TikuxknxkyfRSQUYZRXNZXYindwdslx ClinicStart: 04-47-9717YWSUYHIQXS CANCER SCREENINGCOLORECTAL CANCER SCREENINGSelect [facility] Columbustart: 42-16-7952VF COLONOGRAPHYCT COLONOGRAPHYSelect Medical Specialty Hospital - Columbustart: 24-33-9842TUBJNFDQ SCREEN DIABETES SCREENCleMercy Health Perrysburg Hospitaltart: 73-05-3351Lmgyakxl ScreeningDiabetes ScreeningCleMercy Health Perrysburg Hospitaltart: 24-37-5193YHRTN OCCULT BLOODFECAL OCCULT BLOOD [facility]: 51-59-5161Zeolc panelLipid ScreeningAshtabula General Hospital Start: 03-74-5322ULSOX SCREENLIPID SCREENSelect Medical Specialty Hospital - Columbustart: 2005 Screening for malignant neoplasm of colonSelect [facility] Specialty Hospital - Columbustart: 2005 SIGMOIDOSCOPYSIGMOIDOSCOPYSelect Medical Specialty Hospital - Columbustart: 39-74-5442GpkbghvpewjFATLUXOLX [facility]art: 79-29-2425Tdwazbsoi for malignant neoplasm of breast Mammogram ScreeningSelect Medical Specialty Hospital - Columbustart: 02-23-1898EKA TESTINGHPV TESTING [facility]art: 55-65-5723Yqpadxjax for malignant neoplasm of cervixHPV TestingSelect Medical Specialty Hospital - Columbustart: 58-07-0000LMY TESTINGPAP TESTINGAshtabula General Hospital Start: 33-14-2390Wjbuooghb for malignant neoplasm of cervixAshtabula General Hospital Start: 95-45-0637Gnrmt microalbumin profileSelect Medical Specialty Hospital - Columbustart: 1978 Anxiety ScreeningAnxiety ScreeningSelect Medical Specialty Hospital - Columbustart: 70-67-9979Phoaqzabjo ScreeningDepression ScreeningSelect Medical Specialty Hospital - Columbustart: 56-52-6808RWXODFPCA C SCREENINGHEPATITIS C SCREENINGSelect Medical Specialty Hospital - Columbustart: 73-56-1614Hfaohecut C screeningHepatitis C ScreeningSelect Medical Specialty Hospital - Columbustart: 46-98-8345EWQ SCREENINGHIV SCREENINGSelect Medical Specialty Hospital - Columbustart: 97-74-7794GTJ screeningHIV ScreeningSelect Medical Specialty Hospital - Columbustart: 95-09-3868Jfpbs depression screening assessmentDEPRESSION SCREENING [facility]: 02-98-8118MGZAO-19 VACCINE (1)COVID-19 VACCINE (1) [facility]: 06-18-0080FQTND-19 VACCINE (#1)COVID-19 VACCINE (#1) [facility] HospitalChromatin Ab [Units/volume] in Serum or PlasmaMercy Health Allen HospitalComplement C3 [Mass/volume] in Serum or PlasmaMercy Health Allen HospitalComplement C4 [Mass/volume] in Serum or PlasmaMercy Health Allen HospitalComprehensive metabolic 1999 panel - Serum or PlasmaMercy Health Allen HospitalComprehensive metabolic 1999 panel - Serum or Plasma [facility] HospitalHistone IgG Ab [Units/volume] in Serum by ImmunoassayMercy Health Allen HospitalMG Breast - bilateral Screening [facility] HospitalPatient EducationLow back pain in adults [facility] Work Phone: Smith extractable nuclear Ab [Units/volume] in Serum [facility] HospitalXR Hip - left 2 [facility]XR Lumbar spine [facility] Immunizations Immunization DateImmunizationNotesCare HjfddmmtQlworzvu92-90-7340hbbfua vaccine recombinantBenjamin Ball DO Work Phone: [facility]02-11-2021zoster vaccine, liveMarcia Johnson Other [facility]11-09-2020influenza virus vaccine, split virus (incl. purified surface antigen)Sussy Alex Other [employer] Other 216169-96-2943domelgjft, injectable, quadrivalent, preservative freeBenjamin Ball DO Work Phone: [facility]11-09-2020zoster vaccine recombinantBenjamin Ball DO Work Phone: [facility]11-09-2020zoster vaccine, liveMarcia Johnson Other [facility]11-09-2020influenza virus vaccine, unspecified formulationAnitha Ford RT(R)[facility] Payers DatePayer CategoryPayerPolicy [id number]-ixa [id number] Health InsuranceCIGNA CIGNA PAYER SOLUTIONS PPO [id number] 2015-Present [phone] [address] [place]AY[place] [address] [id number] Health Insurance [id number] [id number] [id number] 2.16.840.1.850277.3.579.2.92645-89-0541Xnxmfmf Health [id number] 92-40-5859Mwsdpcz Health [id number] Social History DateTypeDetailFacilityTobacco smoking status NHISTobacco smoking consumption unknownSelect [facility] Columbustart: 50-92-9821Ydy Assigned At BirthNot on file [facility]ustart: 12-22-2020 End: 99-26-9788Gjmylehe to SARS-CoV-2 (event)Not sureSelect Medical Specialty Hospital - Columbustart: 03-03-2023 End: 13-95-5428Vkf [facility]igned [facility]: 03-03-2023 End: 51-33-4760Wwczevo of Social functionSelect Medical Specialty Hospital - Columbustart: 46-92-1569Cgvsc Depression Screening Palczouaqj9Ywfaqwmsu ClinicStart: 68-20-1827Ygt [facility]: 05-15-2024 End: 54-88-2893Anvfthd smoking status NHISNever smoked tobacco (finding) [facility]: [id number] use and exposure Smokeless tobacco non-userSelect Medical Specialty Hospital - Columbustart: [id number] beverage intakeLifetime non-drinker (finding)[facility] Hospital - ColumbusexFemale (finding)[facility] Clinical Notes 12-01-2021 to 07-02-2025 Note Date & [id number] History of Present illness Narrative* Juan Hill, PT - 07/02/2025 9:00 AM EST Images from the original note were not included. Physical Therapy Physical Therapy Evaluation Visit Patient Name: Svetlana Carver Today's Date: 07/02/2025 Encounter Diagnoses Name Primary? Chronic left-sided low back pain without sciatica Yes Primary osteoarthritis of left hip Visit number: 1 Subjective Svetlana Carver 64 y.o. female presents to physical therapy w/ chief c/o low back and L hip pain intogroin Mechanism of Onset: no known MONTEZ or cause other than known herniated disc in back, chronic, L hip area started Current deficits: pain, weakness, decreased ROM/flexibility, impaired gait Pain: 5/10 amb into session, worse at times Location: L post hip/SI/buttocks Aggravating Factors: standing, [...] end range and rotation suad Treatment Interventions Education: HEP education with demonstration, Educated on Eval Findings and POC, heat vs cold Manual Therapy: MET for L post innominate rotation (fully corrected at LE's and pelvis) L hip LA distraction, PROM, gentle stretching x 15 min total Therapeutic Exercise: per TOYA grid, ROM, flexibility, core/hip strength x 24 min sup with demo and verbal cues for correct technique and to keep stretches gentle Modalities: CP x 10 min end of session Assessment/Plan Low back, L hip pain, decreased ROM, flexibility, core/hip strength causing impaired gait and increased difficulty with ADLs/self care, decreased QOL Patient Goals Short Term Goal #1: pt will self report impairment less than or equal to 15% per LEFS at DC from PT Short Term Goal #2: pt will demo normalized quality of gait non-antalgic on L LE including reciprical pattern up and down steps Short Term Goal #3: pt will demo L hip strengh grossly greater than or equal to 4+/5 MMT pain free all planes Short Term Goal #4: pt will be ind with HEP for maintenance and able to avoid further imaging/intervention at DC from PT Pt will benefit from skilled PT to address the above impairments for 2x/week for 4-8 weeks pending pt needs/progress. Pt to be gone on vacation for ~2 weeks after IE. I hereby deem this POC medically necessary. Please sign below. Date: documented in this encounterFreeman Heart [id number] NoteHNO ID: [id number] Author: GARRISON LEE PA-C Service: ? Author Type: Physician Sourcing Engineer Type: Progress Notes Filed: 06/25/2025 10:26 Note Text: PROCEDURE NOTE: Svetlana Carver Medical Record: [id number] Primary osteoarthritis of left knee (primary encounter diagnosis) Large Joint Arthro/Inj: L knee joint 06/22/2025 10:26 AM The procedure site was prepped in the usual sterile fashion. Site: L knee joint Medications: 40 mg triamcinolone acetonide 40 mg/mL Anesthetics: 4 mL lidocaine (PF) 10 mg/mL (1 %) Outcome: Tolerated well, no immediate complications Post-injection instructions were reviewed with the patient and the patient voiced understanding of these instructions. Informed Consent Consent Obtained: Written [place] Protocol A moment to CARE was completed. [...] assessment and interventions applicable. No implant(s) inserted. [facility] Center10-21-2025 NoteHNO ID: [id number] Author: GARRISON LEE PA-C Service: ? Author Type: Physician Sourcing Engineer Type: Progress Notes Filed: 06/19/2025 10:13 Note Text: This document has been created with the use of voice recognition technology, including AI Scribe technology. It may contain inaccuracies: misspellings, inaccurate syntax or word sense that escaped review. CHIEF COMPLAINT: Svetlana Carver is a 64 year old female who presents today for follow up of right shoulder. HISTORY OF PRESENT ILLNESS: PAIN EVALUATION 06/19/2025 0702 06/19/2025 0951 Pain Level: 7 8 Pain Location: Shoulder-Right Other: See Comment Bilateral Shoulders R>L Description: Aching;Radiating;Shooting;Spasm;Throbbing Dull;Aching;Other: See comment pulling, pinching Duration Amount of Time: 1 1 Duration Units: Weeks Weeks Frequency: Intermittent Continuous Intervention/Comfort measure: Medication;Reposition;Relaxation;Heat;Massage;Positioning Reposition;Relaxation;Positioning;Medication;Heat Comments: Always a background pain. More painful with motion or at night. Etolodolac(Hip injury rx) HISTORY: The Svetlana is a 64-year-old female with shoulder arthritis presenting for evaluation of recurrent shoulder pain. The Svetlana reports a flare of shoulder pain that she describes as worse than usual. She was previously receiving physical therapy, which she stopped in January due to distance. She has since been performing home exercises about twice weekly, but not as aggressively as during formal therapy. She reports pain with reaching back and with overhead movement. She has been trying to do gentle stretching despite the pain. She has a history of shoulder surgery in 2012. She received a cortisone injection 5 months ago, which provided significant relief. She reports difficulty sleeping due to shoulder pain, particularly when she rolls onto the affected side at night. She is currently taking etodolac once daily instead of the prescribed twice daily due to a rash she developed when taking the higher dose. The rash has resolved with the reduced dose. ROS: REVIEW OF SYSTEMS: Constitutional: patient denies [...] or anxiety issues SOCIAL HISTORY: Tobacco Use: Never FAMILY HISTORY: History reviewed. No pertinent family history. Constitutional: (+) sleep disturbance Musculoskeletal: (+) shoulder pain, (+) hip pain, (+) knee pain, (+) low back pain Skin: (-) rash Neurological: (-) radiating leg pain ALLERGIES: ALLERGIES Allergen Reactions Nsaids (Non-Steroid* [...] irritability with PROM Tenderness to palpation of tuberosities, not tender to the anterior GH joint active equals passive ROM- 170/70 pain with impingement maneuvers Pain and weakness with isometric contraction of the RC; when tested against resistance- SS, IS, subscap Bicep with normal course No atrophy of the scapula girdle intact sensation to light touch distally good radial pulse no pain with neck ROM Imaging: - none new today Radiographs personally reviewed IMPRESSION: Encounter Diagnosis ICD-10-CM 1. Primary osteoarthritis of right shoulder M19.011 2. Tendinopathy of right rotator cuff M67.911 Large Joint Arthro/Inj: R subacromial bursa 06/19/2025 10:13 AM The procedure site was prepped in the usual sterile fashion. Site: R subacromial bursa Medications: 40 mg triamcinolone acetonide 40 mg/mL Anesthetics: 8 mL lidocaine (PF) 10 mg/mL (1 %) Outcome: Tolerated well, no immediate complications Post-injection instructions were reviewed with the patient and the patient voiced understanding of these instructions. Informed Consent Consent Obtained: Written [place] Protocol A moment to CARE was completed. SIGN IN Personnel directly involved with the procedure wore the appropriate PPE. Special Equipment: Yes Patient/Surrogate (more content not included)...[facility] 05-04-2025 Evaluation note* Diagnosis Onset Date Resolution Status Admit Date Low back pain acuteSeptember 2024 9:23amLumbar spondylosisacuteSept2024 9:23am Rotator cuff impingement syndrome of left shoulderacuteSept2024 9:23amShoulder pain, leftacuteSept2024 9:23amGERD (gastroesophageal reflux disease)acuteSept2024 11:39amHypercholesterolemiaacute May 15, 2025 11:39amLow back painacuteSeptember 2024 11:39amLumbar spondylosisacuteSept2024 11:39amOsteoporosisacuteSept2024 11:39amRotator cuff impingement syndrome of left shoulderacuteSept2024 11:39amScreening for colon canceracuteSept2024 11:39am Screening mammogram for breast canceracuteSept2024 11:39amWellness examinationacuteSept2024 11:39am [facility] Work Phone: 1(295) 298-715309-05-2025 Evaluation note* Diagnosis Onset Date Resolution Status Admit Date Low back pain acuteSept2024 9:23amLumbar spondylosisacuteSept2024 9:23am Rotator cuff impingement syndrome of left shoulderacuteSept2024 9:23amShoulder pain, leftacuteSept2024 9:23amGERD (gastroesophageal reflux disease)acuteSept2024 11:39amHypercholesterolemiaacute May 15, 2025 11:39amLow back painacuteSeptember 2024 11:39amLumbar spondylosisacuteSept2024 11:39amOsteoporosisacuteSeptember 2024 11:39amRotator cuff impingement syndrome of left shoulderacuteSept2024 11:39amScreening for colon canceracuteSept2024 11:39am Screening mammogram for breast canceracuteSeptember 2024 11:39amWellness examinationacuteSeptember 2024 11:39amLeft hip painacuteOctober 2024 8:47amLow back painacuteOctober 2024 8:47amLumbar spondylosisacuteOctober 2024 8:47am [facility] Work Phone: 1(335) 375-349706-17-2025 History of Present illness Narrative* Selene Buckley, PT - 02/13/2025 11:14 AM EDT Program_ID:[id number] Access Code: [email or web address] URL: [email or web address] Date: 02-13-2025 Prepared By: Selene Buckley Program Notes Exercises - Prone Scapular Protraction [...] weekly - 1-2 sets - 10-15 reps * Selene Buckley, PT - 02/13/2025 10:36 AM EDT Episode Visit Count: 3 Therapist That Will Accept/Oversee The Plan Of Care: Selene Buckley Start of Care Date: 01/05/25 Onset Date: 08/31/22 Patient Identified by Name and Date of : Yes REHABILITATION AND SPORTS THERAPY PHYSICAL THERAPY DISCONTINUANCE OF CARE PLAN OF CARE UPDATE: Assessment: Svetlana Carver is discontinued from Physical Therapy services due to goal achievement and maximal benefit.. Patient was seen for 3 visits from Start of Care Date: 01/05/25 to 02/13/2025 andtreatment included: Therapeutic exercise, Neuromuscular re-education, Manual therapy, and Self-carehome management. Patient has had improvements in cervical and right shoulder ROM, strength and flexibility, ability to perform functional activities, and decreased pain since initiating physical therapy services. Goals for Episode of Care: established 01/05/25 Updated 02/13/25 [place] in home exercise program. MET Patient will [...] traps to min restriction to improve ability tomaintain proper posture, improve mechanics, and decrease pain. [...] paid attention to he posture, and her shoulderswere fine, but her back did seize up. Overall feels good with the exercises she has. Feels confident to continue on her own. Is ready fordischarge this date. Functional Limitations: walking, sitting, heavy [...] exercises in regards to decreasing fatigue , improvingfitness, increase ease of ADL, and ROM and [...] 1036 Session Stop Time : 1118 Selene Buckley PT, DPT documented in this encounterAshtabula General Hospital06-17-2025 NoteHNO ID: [id number] Author: SELENE BUCKLEY PT Service: ? Author Type: Physical Therapist Type: Progress Notes Filed: 02/13/2025 11:19 Note Text: Episode Visit Count: 3 Therapist That Will Accept/Oversee The Plan Of Care: Selene Buckley Start of Care Date: 01/05/25 Onset Date: [...] Therapeutic exercise, Neuromuscular re-education, Manual therapy, and Self-penitentiary management. Patient has had improvements in cervical and right shoulder ROM, strength and flexibility, ability to perform functional activities, and decreased pain since initiating physical therapy services. Goals for Episode of Care: established 01/05/25 Updated 02/13/25 [place] in home exercise program. MET Patient will [...] 4+/5 L Shoulder Flexion: (more content not included)...[facility] 01-24-2025 History of Present illness Narrative* Selene Buckley, PT - 01/24/2025 5:08 PM EDT Program_ID:[id number] Access Code: [email or web address] URL: [email or web address] Date: 01-24-2025 Prepared By: Selene Buckley Program Notes Exercises - Prone Scapular Protraction [...] weekly - 1-2 sets - 10-15 reps * Selene Buckley, PT - 01/24/2025 4:22 PM EDT Episode Visit Count: 2 Therapist That Will Accept/Oversee The Plan Of Care: Selene Buckley Start of Care Date: 01/05/25 Onset Date: [...] her arms are really weak, they shake whendoing the exercises. [place] her neck is extremely noisy, whenever she [...] exercises in regards to decreasing fatigue , improvingfitness, increase ease of ADL, and ROM and [...] Education in proprioceptive/kinesthetic awareness during standing and dynamicactivities. Reviewed and educated patient on additions/changes for [...] Time : 1627 Session Stop Time : 171 Selene Buckley PT, DPT documented in this encounterAshtabula General Hospital05-28-2025 NoteHNO ID: [id number] Author: SELENE BUCKLEY PT Service: ? Author Type: Physical Therapist Type: Progress Notes Filed: 01/24/2025 17:24 Note Text: Episode Visit Count: 2 Therapist That Will Accept/Oversee The Plan Of Care: Selene Buckley Start of Care Date: 01/05/25 Onset Date: [...] weak, they shake when doing the exercises. [place] her neck is extremely noisy, whenever she [...] 1627 Session Stop Time : 1711 Selene Buckley PT, [facility]05-09-2025 History of Present illness Narrative* Selene Buckley PT - 01/05/2025 1:11 PM EDT Program_ID:[id number] Access Code: [email or web address] URL: [email or web address] Date: 01-05-2025 Prepared By: Selene Buckley Program Notes Exercises - Prone Scapular Protraction [...] weekly - 1 sets - 10 reps * Selene Buckley, PT - 01/05/2025 12:30 PM EDT Images from the original note were not included. Episode Visit Count: 1 Therapist That Will Accept/Oversee The Plan Of Care: Selene Buckley Start of Care Date: 01/05/25 Onset Date: 08/31/22 Patient Identified by Name and Date of : Yes REHABILITATION AND SPORTS THERAPY PHYSICAL THERAPY EVALUATION PLAN OF CARE: Assessment: Svetlana Carver presents with chief complaint of right shoulder pain that interferes withwalking, sitting, heavy exertion, lifting, physical activities, recreational activities, sleeping .The patient presents with impairments in flexibility, overall function, range of motion, strength, symptom management, and tissue tenderness. PROMIS (Patient-Reported Outcomes Measurement InformationSystem) scores were reviewed and identified as within [...] Goals for Episode of Care: established 01/05/25 [place] in home exercise program. Patient will decrease [...] traps to min restriction to improve ability tomaintain proper posture, improve mechanics, and decrease pain. Perform recreational activities with decreased report of symptoms/pain in 8 weeks. Improve postural awareness. Patient Goals: Be able to lift again Time Frame for Goals and Treatment : 03/06/25 Planned Interventions, Frequency, and Duration: Current Frequency: 1x every other week Duration: 8 weeks Total Number of Visits Planned: 4 Planned Treatment Interventions: Therapeutic exercise (85823), Neuromuscular re- education (15283), Manual therapy (00385), Therapeutic activities (30610), Self- penitentiary management (89036), Gait Training (70082), Patient/Family/Caregiver Education PLAN FOR NEXT VISIT: Review [...] gradually getting worse. She had surgery in 2012 had a rotator cuff surgery, but had been doing fine up until recently. 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 . Skilled [...] 1231 Session Stop Time : 1316 Selene Buckley PT, DPT documented in this encounterAshtabula General Hospital05-09-2025 NoteHNO ID: [id number] Author: SELENE BUCKLEY PT Service: ? Author Type: Physical Therapist Type: Progress Notes Filed: 01/05/2025 13:26 Note Text: Episode Visit Count: 1 Therapist That Will Accept/Oversee The Plan Of Care: Selene Buckley Start of Care Date: 01/05/25 Onset Date: [...] Goals for Episode of Care: established 01/05/25 [place] in home exercise program. Patient will decrease [...] Planned: 4 Planned Treatment Interventions: Therapeutic exercise (69608), Neuromuscular re-education (03520), Manual therapy (11101), Therapeutic activities (06292), Self-penitentiary management (36734), Gait Training (00562), Patient/Family/Caregiver Education PLAN FOR NEXT VISIT: Review [...] fine up until recently. 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 [facility]05-09-2025 NoteHNO ID: [id number] Author: GARRISON LEE PA-C Service: ? Author Type: Physician Sourcing Engineer Type: Progress Notes Filed: 01/05/2025 11:54 Note [...] comment Reposition;Relaxation;Positioning;Medication;Heat Comments: Stretching Aleve, Tylenol HISTORY: Svetlana is [...] She recently completed a half marathon in [facility], without any issues related to her [...] these instructions. Informed Consent Consent Obtained: Written [place] Protocol A moment to CARE was completed. SIGN IN Personnel directly involved with the procedure wore the appropriate PPE. Special Equipment: Yes Patient/Surrogate Stated/Verified: Patient name, Date of , Relevant allergies and Intended proce (more content not included)...[facility]05-09-2025 History of Present illness Narrative* Garrison Lee PA-C - 01/05/2025 11:35 AM EDTAssociated Order(s): Large Joint Arthro/Inj: R subacromial bursa Post-Procedure Diagnose(s): Primary osteoarthritis of right shoulder; Tendinopathy of right rotatorcuff Images from the original note were not included. This document has been created with the use of voice recognition technology, including [employer] Scribe technology. It may contain inaccuracies: misspellings, [...] comment Reposition;Relaxation;Positioning;Medication;Heat Comments: Stretching Aleve, Tylenol HISTORY: Svetlana is [...] She recently completed a half marathon in [facility], without any issues related to her [...] these instructions. Informed Consent Consent Obtained: Written [place] Protocol A moment to CARE was completed. [...] cuff tear. Previous rotator cuff repair in 2013 for a 1.5 cm tear; current weakness [...] PT Garrison Lee PA-C documented in this encounterAshtabula General Hospital05-09-2025 NoteHNO ID: [id number] Author: ANITHA FORD RT(R) Service: ? Author [...] PATIENT PRESENTS WITH AN IMPLANTABLE OR ATTACHED FLAT SORTING MACHINE CLERK: No RADIOLOGY DEPARTMENT: General X-ray: Exam(s) Completed: Upper Extremity X-Ray(s): Shoulder, AP / TRUE AP / AXILLARY / SUPRA OUTLET bilateral PERIPHERAL IV DATA: Not applicable SIGNED BY: RT Angela(R) January 05, 2025 10:53 [facility]05-09-2025 History of Present illness Narrative* Anitha Ford RT(R) - 01/05/2025 10:53 AM EDT Radiology Service Progress Note PATIENT NAME: Svetlana Carver DATE OF SERVICE: January 05, 2025 TIME: 10:53 AM PATIENT IDENTITY VERIFICATION COMPLETED USING TWO (2) IDENTIFIERS: Name and Date of confirmedby patient verbally. FALL SCREENING: Has the patient had 2 falls in the last year or 1 fall with injury or currently using an Ambulatory Assistive Device (Walker, Cane, Wheelchair, Crutches, etc.)? No PATIENT GENDER DATA: Assigned female at . status: : No status:N/A PATIENT RELEVANT IMPLANT DATA REVIEWED: Not Applicable PATIENT PRESENTS WITH AN IMPLANTABLE OR ATTACHED FLAT SORTING MACHINE CLERK: No RADIOLOGY DEPARTMENT: General X-ray: Exam(s) Completed: Upper Extremity X- Ray(s): Shoulder, AP / TRUE AP / AXILLARY / SUPRA OUTLET bilateral PERIPHERAL IV DATA: Not applicable SIGNED BY: RT Angela(R) January 05, 2025 10:53 AM documented in this encounterAshtabula General Hospital04-18-2025 NoteHNO ID: [id number] Author: GARRISON LEE PA-C Service: ? Author Type: Physician Sourcing Engineer Type: Progress Notes Filed: 12/15/2024 10:38 Note Text: This document has been created with the use of voice recognition technology, including AI Scribe technology. It may contain inaccuracies: misspellings, inaccurate syntax or word sense that escaped review. CHIEF COMPLAINT: Svetlana Carver is a 64 year old female who presents today for follow up of both knees. HISTORY OF PRESENT ILLNESS: PAIN EVALUATION 12/14/20242225 Pain Level: 7 Pain Location: Knee-Left Description: Aching;Dull Duration Units: Months Frequency: Intermittent Intervention/Comfort measure: Medication;Cold;Distractions;Reposition;Relaxation;Positioning HISTORY: Svetlana is a 64-year-old female presenting [...] prepare for an upcoming half marathon in [facility] on the or , with travel [...] these instructions. Informed Consent Consent Obtained: Written [place] Protocol A moment to CARE was completed. [...] pain significantly affects activiti (more content not included)...[facility]04-18-2025 History of Present illness Narrative* Garrison Lee PA-C - 12/15/2024 10:36 AM EDTAssociated Order(s): Large Joint Arthro/Inj: L knee joint Post-Procedure Diagnose(s): Primary osteoarthritis of left knee Images from the original note were not included. This document has been created with the use of voice recognition technology, including [employer] Scribe technology. It may contain inaccuracies: misspellings, inaccurate syntax or word sense that escaped review. CHIEF COMPLAINT: Svetlana Carver is a 64 year old female who presents today for follow up of both knees. HISTORY OF PRESENT ILLNESS: PAIN EVALUATION 12/14/2024 2226 Pain Level: 7 Pain Location: Knee-Left Description: Aching;Dull Duration Units: Months Frequency: Intermittent Intervention/Comfort measure: Medication;Cold;Distractions;Reposition;Relaxation;Positioning HISTORY: Svetlana is a 64-year-old female presenting [...] prepare for an upcoming half marathon in [facility] on the or , with travel scheduled for the . She recently completed a half marathon this past Wednesday, which was painful, particularly the last 4 miles. She also reports chronic back pain, attributed to a previous fall from a deck, resulting in a diagnosis of a condition that comes and goes with waves of pain. She denies major neurological symptomssuch as weakness or gait instability. She also reports bilateral shoulder pain, uncertain if it is due to arthritis or if it requires physical therapy or weight training. She has a history of a right hip replacement, which she describes as one of the greatest things she ever did. She expresses concern about the potential need for a knee replacement in the future andits impact on her ability to remain active, [...] these instructions. Informed Consent Consent Obtained: Written [place] Protocol A moment to CARE was completed. [...] needed. Garrison Lee PA-C documented in this encounterAshtabula General Hospital11-26-2024 NoteHNO ID: [id number] Author: GARRISON LEE PA-C Service: ? Author Type: Physician Sourcing Engineer Type: Progress Notes Filed: 07/25/2024 14:21 Note [...] knee joints Informed Consent Consent Obtained: Written [place] Protocol A moment to CARE was completed. [...] is ready to s (more content not included)...[facility] 07-25-2024 History of Present illness Narrative* Garrison Lee PA-C - 07/25/2024 2:17 PM ESTAssociated Order(s): Large Joint Arthro/Inj: bilateral knee joints [...] more significant. Pain is mostly at the medialaspect of this knee. No specific injuries that [...] knee joints Informed Consent Consent Obtained: Written [place] Protocol A moment to CARE was completed. [...] yet Garrison Lee PA-C documented in this encounterAshtabula General Hospital03-01-2024 History of Present illness Narrative* Garrison Lee PA-C - 10/29/2023 11:55 AM EST Images from the original note [...] 13:50/mile pace. Pain started at about the nursing home point and increased until I was finished. The knee was difficult to bend. Went home and iced it and took alleve. This helped -- HISTORY: Svetlana Carver is here for follow up of complaints of arthritis flare of the left knee. Shestates most of her pain is posterior. She has severe medial compartment degenerative change. She has a race coming up soon in [facility] where she will be power walking [...] needed Garrison Lee PA-C documented in this encounter[facility] History of Present illness Narrative* Anitha Ford, RT(R) - 10/29/2023 11:34 AM EST Radiology Service Progress Note PATIENT NAME: Svetlana Carver DATE OF SERVICE: October 29, 2023 TIME: 11:34 AM PATIENT IDENTITY VERIFICATION COMPLETED USING TWO (2) IDENTIFIERS: Name and Date of confirmedby patient verbally. FALL SCREENING: Has the patient had 2 falls in the last year or 1 fall with injury or currently using an Ambulatory Assistive Device (Walker, Cane, Wheelchair, Crutches, etc.)? No PATIENT GENDER DATA: Female. status: : No status: N/A PATIENT RELEVANT IMPLANT DATA REVIEWED: Not Applicable PATIENT PRESENTS WITH AN IMPLANTABLE OR ATTACHED FLAT SORTING MACHINE CLERK: No RADIOLOGY DEPARTMENT: General X-ray: Exam(s) Completed: Lower Extremity X- Ray(s): Knee, AP / Lat / Tunne / Merchant Left and Wt. Bearing PERIPHERAL IV DATA: Not applicable SIGNED BY: RT Angela(R) October 29, 2023 11:34 AM documented in this encounterAshtabula [facility]11-28-2023 Evaluation note* Encounter Date Diagnosis Assessment Notes Treatment Notes Treatment Clinical Notes Jun, Well adult exam (ICD-10 - Z00.00 ) We have discussed the necessity of following [...] vaccinations that apply. All questions answered and p atient is sent home pleased, without concerns. Lab order hand written. Jun,ervical pain (ICD-10 - M54.2)Order for PT handwritten [facility] Other 07-05-2023 History of Present illness Narrative* [...] remains very active and does long distance [place] races. These activities seem to flareup the [...] knee joint Informed Consent Consent Obtained: Written [place] Protocol A moment to CARE was completed. [...] dictate. Garrison Lee PA-C documented in this encounterAsht[facility]ula [facility]10-11-2022 History of Present illness Narrative* Garrison [...] knee joint Informed Consent Consent Obtained: Written [place] Protocol A moment to CARE was completed. [...] needed Garrison Lee PA-C documented in this encounterAshtabula [facility]10-11-[facility]22 History of Present illness Narrative* Kriss Cornelius RT(R) - 06/09/2022 11:20 AM EDT pain documented in this encounterAshtabula [facility]10-04-2022 NotePROCEDURE: XR ANKLE RT MIN 3 [...] Electronically authenticated by: HOMERO DONALDSON Date: 2022-06-02 12:[facility]10-04-2022 NotePROCEDURE: XR ANKLE RT MIN 3 VIEWS, [...] authenticated by: HOMERO DONALDSON Date: 2022-06-02 12[id number] History of Present illness Narrative* Garrison Lee [...] knee joint Informed Consent Consent Obtained: Written [place] Protocol A moment to CARE was completed. [...] Lee PA-C [facility]* Diagnosis Primary osteoarthritis of left knee- Primary Primary localized osteoarthrosis, lower leg documented in this encounter [facility] note* Diagnosis Primary osteoarthritis of left knee- Primary Primary localized osteoarthrosis, lower leg documented in this encounter [facility] note* Diagnosis Primary osteoarthritis of left knee- Primary Primary localized osteoarthrosis, lower leg documented in this encounter [facility] noteNo InformationNoaudrain medical center [facility] Other Evaluation note* Diagnosis Primary osteoarthritis of left knee- Primary Primary localized osteoarthrosis, lower leg It band syndrome, left documented in this encounter [facility] noteNo assessment information [facility] Work Phone: Evaluation note* Diagnosis Primary osteoarthritis of left knee Primary localized osteoarthrosis, lower leg documented in this encounter [facility] note* Diagnosis Onset Date Resolution Status GERD (gastroesophageal reflux disease) acuteHypercholesterolemiaacuteOsteoporosisacuteScreening for colon canceracute Screening mammogram for breast canceracuteWellness examinationZanesville City Hospital Work Phone: Evaluation note* Diagnosis Primary osteoarthritis of left knee Primary localized osteoarthrosis, lower leg documented in this encounter [facility] note* Diagnosis Primary osteoarthritis of left knee Primary localized osteoarthrosis, lower leg [facility] Diagnosis Primary osteoarthritis of left knee- Primary Primary localized osteoarthrosis, lower leg Primary osteoarthritis of right knee Primary localized osteoarthrosis, lower leg documented in this encounter [facility]* Diagnosis Primary osteoarthritis of left knee- Primary Primary localized osteoarthrosis, lower leg Primary osteoarthritis of right knee Primary localized osteoarthrosis, lower leg documented in this encounter [facility]* Diagnosis Primary osteoarthritis of right shoulder- Primary Primary localized osteoarthrosis, shoulder region Tendinopathy of right rotator cuff Cervicalgia Impingement syndrome of left shoulder Other affections of shoulder region, not elsewhere classified Pain of both shoulder joints documented in this encounter [facility]* Diagnosis Pain in joint of right shoulder- Primary Pain in joint, shoulder region Primary osteoarthritis of right shoulder Primary localized osteoarthrosis, shoulder region Tendinopathy of right rotator cuff Cervicalgia Impingement syndrome of left shoulder Other affections of shoulder region, not elsewhere classified documented in this encounter [facility]* Diagnosis Pain of both shoulder joints documented in this encounter [facility]* Diagnosis Pain in joint of right shoulder- Primary Pain in joint, shoulder region documented in this encounter [facility]* Diagnosis Pain in joint of right shoulder- Primary Pain in joint, shoulder region documented in this encounter [facility]* Diagnosis Chronic left-sided low back pain without sciatica- Primary Primary osteoarthritis of left hip documented in this encounter [facility] Narrative - Reported* Type Description Date Medical History GERD without esophagitis Medical HistoryOnychomycosisMedical HistoryLow back pain with radiationMedical HistoryMuscular painMedical HistoryHyperlipidemia, unspecifiedMedical History OsteoporosisMedical HistoryPlantar FasciitisSurgical HistoryRhinoplastySurgical HistoryDEXA 10/16 hip - 2.8Surgical HistoryTonsillectomyHospitalization History SEE SURGICAL HX [facility] Other Reason for referral (narrative)* Diagnostic Procedure Only (Routine) - ClosedSpecialtyDiagnoses / ProceduresReferred By Contact Referred To ContactXR IMAGING Diagnoses Primary osteoarthritis of left knee Procedures XR KNEE GENERAL 4V AP BOTH/PA BOTH/LAT/MERC LEFT RADIOLOGIC EXAM KNEE COMPLETE 4/MORE VIEWS Garrison Lee, KRISTIANC [address] [place] [address] Xr Imaging Referral IDStatusReasonStart DateExpiration DateVisits RequestedVisits [id number] Auto-Generated Referral / [facility] for referral (narrative)* Diagnostic Procedure Only (Routine) - ClosedSpecialtyDiagnoses / ProceduresReferred By ContactReferred To ContactXR IMAGING Diagnoses Primary osteoarthritis of left knee Procedures XR KNEE GENERAL 4V AP BOTH/PA BOTH/LAT/MERC LEFT RADIOLOGIC EXAM KNEE COMPLETE 4/MORE VIEWS Garrison Lee PA-C [address] [place] [address] [place] [address] Referral IDStatusReasonStart DateExpiration DateVisits RequestedVisits [id number] Auto-Generated Referral / [facility] for referral (narrative)* Diagnostic Procedure Only (Routine) - ClosedSpecialtyDiagnoses / ProceduresReferred By ContactReferred To ContactXR IMAGING Diagnoses Primary osteoarthritis of left knee Procedures XR KNEE GENERAL 4V AP BOTH/PA BOTH/LAT/MERC LEFT RADIOLOGIC EXAM KNEE COMPLETE 4/MORE VIEWS Garrison Lee PA-C [address] [place] [address] [place] [address] Referral IDStatusReasonStart DateExpiration DateVisits RequestedVisits [id number] Auto-Generated Referral / [facility] for referral (narrative)* Diagnostic Procedure Only (Routine) - ClosedSpecialtyDiagnoses / ProceduresReferred By ContactReferred To ContactXR IMAGING Diagnoses Primary osteoarthritis of left knee Procedures XR KNEE GENERAL 4V AP BOTH/PA BOTH/LAT/MERC LEFT RADIOLOGIC EXAM KNEE COMPLETE 4/MORE VIEWS Garrison Lee PA-C [address] [place] [address] [place] [address] Referral IDStatusReasonStart DateExpiration DateVisits RequestedVisits [id number] Auto-Generated Referral / [facility] for referral (narrative)No reason for referral information availableMorrow [facility] Hospital [facility] Work Phone: [facility] Narrative* Diagnostic Procedure Only (Routine) - ClosedSpecialtyDiagnoses / ProceduresReferred By ContactReferred To ContactXR IMAGING Diagnoses Primary osteoarthritis of left knee Procedures XR KNEE GENERAL 4V AP BOTH/PA BOTH/LAT/MERC LEFT RADIOLOGIC EXAM KNEE COMPLETE 4/MORE VIEWS Garrison Lee PA-C [address] [place] [address] [place] [address] Referral IDStatusReasonStart DateExpiration DateVisits RequestedVisits [id number] Auto-Generated Referral / [facility] for visit Narrative* Diagnostic Procedure Only (Routine) - ClosedSpecialtyDiagnoses / ProceduresReferred By ContactReferred To Contact XR IMAGING Diagnoses Pain of both shoulder joints Procedures XR SHOULDER ORTHO 4V AP/TRUE AP/LAT/OUTLET LEFT RADEX SHOULDER COMPLETE MINIMUM 2 VIEWS Garrison Lee PA-C [address] [place] [address] Phone: tel: fax: [place] [address] Referral IDStatusReasonStart DateExpiration DateVisits RequestedVisits [id number] Auto-Generated Referral / [facility] for visit Narrative* Rehabilitation - Outpatient (Routine) - AuthorizedSpecialtyDiagnoses / ProceduresReferred By Contact Referred To ContactPhysical Therapy Diagnoses Pain in left hip Spondylosis without myelopathy or radiculopathy, lumbar region Low back pain, unspecified Other chronic pain Procedures [place] PHYSICAL THERAPY EVALUATION HIGH COMPLEX 45 MINS Piyush Bui, DO [address] [place] [address] Phone: tel: Juan Hill, PT [address] [place] [address] Phone: tel: fax: Referral IDStatusReasonStart DateExpiration DateVisits RequestedVisits [id number] [facility] Medications Administered Section Medication OrderMAR ActionAction DateDoseRateSite lidocaine (PF) 10 mg/mL (1 %) 4 mL injection (XYLOCAINE) 4 mL, Injection - FOR ORTHO USE ONLY, ONE TIME INJECTION, 1 dose, Starting on Wed12/01/21 at 1206, Until Wed12/01/21 at 1206 Given12/01/2021 12:06 PM EDT4 mL triamcinolone acetonide 40 mg injection (KENALOG 40) 40 mg, Injection - FOR ORTHO USE ONLY, ONE TIME INJECTION, 1 dose, Starting on Wed12/01/21 at 1206, Until Wed12/01/21 at 1206 Given12/01/2021 12:06 PM EDT40 mgMedication OrderMAR ActionAction DateDoseRate Site lidocaine (PF) 20 mg/mL (2 %) 4 mL injection (XYLOCAINE) 4 mL, Injection - FOR ORTHO USE ONLY, ONE TIME INJECTION, 1 dose, Starting on Wed06/09/22 at 1158,Until Wed06/09/22 at 1158 Given06/09/2022 11:58 AM EDT4 mLKnee, Left triamcinolone acetonide 40 mg injection (KeNALog 40) 40 mg, Injection - FOR ORTHO USE ONLY, ONE TIME INJECTION, 1 dose, Starting on Wed06/09/22 at 1158, Until Wed06/09/22 at 1158 Given06/09/2022 11:58 AM EDT40 mgKnee, LeftMedication OrderMAR ActionAction Date DoseRateSite lidocaine (PF) 10 mg/mL (1 %) 4 mL injection (XYLOCAINE) 4 mL, Injection - FOR ORTHO USE ONLY, ONE TIME INJECTION, 1 dose, Starting on Wed03/03/23 at 1040, Until Wed03/03/23 at 1040 Given03/03/2023 10:40 AM EDT4 mLKnee, Left triamcinolone acetonide 40 mg injection (KeNALog 40) 40 mg, Injection - FOR ORTHO USE ONLY, ONE TIME INJECTION, 1 dose, Starting on Wed03/03/23 at 1040, Until Wed03/03/23 at 1040 Given03/03/2023 10:40 AM EDT40 mgKnee, Left Summary Purpose Family History Relationship Condition Age at Onset Recorded Date/T cee father Heart disease Unknown family memberFamily history of other conditionUnknownNot SpecifiedMalignant neoplasmUnknownsisterMalignant neoplasmUnknown Relationship Condition Age at Onset Recorded Date/T cee father Heart disease Unknown family memberFamily history of other conditionUnknownmotherMalignant neoplasm UnknownsisterMalignant neoplasmUnknownbrotherDiabetes mellitusUnknownMalignant neoplasmUnknownHypertensionUnknownOsteoarthritisUnknownbrotherHeart disease UnknownSquamous cell carcinomaUnknownAge related osteoporosisUnknownRheumatoid arthritisUnknownsisterHeart diseaseUnknownmotherAlzheimer's dementiaUnknown ColitisUnknownParkinson's diseaseUnknown Advance Directives Advance Directive Response Recorded Date/ Time Advance Directives No March 14 4:42pm Chief Complaint and Reason for Visit Chief Complaint Amb Documentation Chief Complaint M25.50 M89.90 Hand p ain Amb Documentation Chief Complaint HAND PAIN/BILAT wellness, med refillReason for VisitGERD (gastroesophageal reflux disease) Hypercholesterolemia Osteoporosis Screening for colon cancer Screening mammogram for breast cancer Wellness examination Chief Complaint Admit Date R76.0 M81.0 E55.9 Z79.899 February 21 1:30pm back pain May 04, 2025 9:23am Chief Complaint Admit Date R76.0 M81.0 E55.9 Z79.899 February 21 1:30pm back pain May 04, 2025 9:23am Wellness May 15, 2025 11:39am Reason for Visit Admit Date Low back pain May 04, 2025 9:23am Lumbar spondylosis May 04, 2025 9:23am Rotator cuff impingement syndrome of lef t shoulder May 04, 2025 9:23am Shoulder pain, left May 04, 2025 9:23am GERD (gastroesophageal reflux disease) S [facility] 2024 11:39am Hypercholesterolemia May 15 11:39am Low back pain May 15, 2025 11:39am Lumbar spondylosis May 15, 2025 11:39am Osteoporosis May 15, 2025 11:39am Rotator cuff impingement syndrome of lef t shoulder May 15, 2025 11:39am Screening for colon cancer April 11:39am Screening mammogram for breast cancer Se ptember 2024 11:39am Wellness examination May 15 11:39am Chief Complaint Admit Date back pain May 04, 2025 9:23am Wellness May 15, 2025 11:39am hip/back pain May 31, 2025 8: 47am Reason for Visit Admit Date Low back pain May 04, 2025 9:23am Lumbar spondylosis May 04, 2025 9:23am Rotator cuff impingement syndrome of lef t shoulder May 04, 2025 9:23am Shoulder pain, left May 04, 2025 9:23am GERD (gastroesophageal reflux disease) S [facility] 2024 11:39am Hypercholesterolemia May 15 11:39am Low back pain May 15, 2025 11:39am Lumbar spondylosis May 15, 2025 11:39am Osteoporosis May 15, 2025 11:39am Rotator cuff impingement syndrome of lef t shoulder May 15, 2025 11:39am Screening for colon cancer April 11:39am Screening mammogram for breast cancer Se ptember 2024 11:39am Wellness examination May 15 11:39am Left hip pain May 31, 2025 8: 47am Low back pain May 31, 2025 8: 47am Lumbar spondylosis May 31, 2025 8: 47am Additional Source Comments Source Comments (unrecognize d section and content) In the event this informatio n is protected by the Federal Confidentiality of Alcohol and Drug Abuse Patient Records regulations: The Federal rules restrict any use of the information to criminally investigate or prosecute any alcohol or drug abuse patient.[facility] HospitalIn the event this information is protected by the Federal Confidentiality of Alcohol and Drug Abuse Patient Records regulations: The Federal rules restrict any use of the information to criminally investigate or prosecute any alcohol or drug abuse patient.[facility] HospitalIn the event this information is protected by the Federal Confidentiality of Alcohol and Drug Abuse Patient Records regulations: The Federal rules restrict any use of the information to criminally investigate or prosecute any alcohol or drug abuse patient.[facility] HospitalIn the event this information is protected by the Federal Confidentiality of Alcohol and Drug Abuse Patient Records regulations: The Federal rules restrict any use of the information to criminally investigate or prosecute any alcohol or drug abuse patient.[facility] HospitalIn the event this information is protected by the Federal Confidentiality of Alcohol and Drug Abuse Patient Records regulations: The Federal rules restrict any use of the information to criminally investigate or prosecute any alcohol or drug abuse patient.[facility] HospitalIn the event this information is protected by the Federal Confidentiality of Alcohol and Drug Abuse Patient Records regulations: The Federal rules restrict any use of the information to criminally investigate or prosecute any alcohol or drug abuse patient.[facility] HospitalIn the event this information is protected by the Federal Confidentiality of Alcohol and Drug Abuse Patient Records regulations: The Federal rules restrict any use of the information to criminally investigate or prosecute any alcohol or drug abuse patient.[facility] HospitalIn the event this information is protected by the Federal Confidentiality of Alcohol and Drug Abuse Patient Records regulations: The Federal rules restrict any use of the information to criminally investigate or prosecute any alcohol or drug abuse patient.[facility] HospitalIn the event this information is protected by the Federal Confidentiality of Alcohol and Drug Abuse Patient Records regulations: The Federal rules restrict any use of the information to criminally investigate or prosecute any alcohol or drug abuse patient.[facility] HospitalIn the event this information is protected by the Federal Confidentiality of Alcohol and Drug Abuse Patient Records regulations: The Federal rules restrict any use of the information to criminally investigate or prosecute any alcohol or drug abuse patient.[facility] HospitalIn the event this information is protected by the Federal Confidentiality of Alcohol and Drug Abuse Patient Records regulations: The Federal rules restrict any use of the information to criminally investigate or prosecute any alcohol or drug abuse patient.[facility] HospitalIn the event this information is protected by the Federal Confidentiality of Alcohol and Drug Abuse Patient Records regulations: The Federal rules restrict any use of the information to criminally investigate or prosecute any alcohol or drug abuse patient.[facility] HospitalIn the event this information is protected by the Federal Confidentiality of Alcohol and Drug Abuse Patient Records regulations: The Federal rules restrict any use of the information to criminally investigate or prosecute any alcohol or drug abuse patient.[facility] HospitalIn the event this information is protected by the Federal Confidentiality of Alcohol and Drug Abuse Patient Records regulations: The Federal rules restrict any use of the information to criminally investigate or prosecute any alcohol or drug abuse patient.[facility] HospitalIn the event this information is protected by the Federal Confidentiality of Alcohol and Drug Abuse Patient Records regulations: The Federal rules restrict any use of the information to criminally investigate or prosecute any alcohol or drug abuse patient.[facility] HospitalIn the event this information is protected by the Federal Confidentiality of Alcohol and Drug Abuse Patient Records regulations: The Federal rules restrict any use of the information to criminally investigate or prosecute any alcohol or drug abuse patient.[facility] Reason for Visit (unrecogniz ed section and content) ReasonCommentsPT DischargeSpecialtyDiagnoses / ProceduresReferred By Contact Referred To ContactREHAB AND SPORTS THERAPY INS Diagnoses Primary osteoarthritis of right shoulder Tendinopathy of right rotator cuff Cervicalgia Impingement syndrome of left shoulder Procedures CONSULT TO PHYSICAL THERAPY PHYSICAL THERAPY EVALUATION HIGH COMPLEX 45 MINS Garrison Lee PA-C [address] [address] Phone: tel: fax: [facility] [address] [place] [phone] Referral IDStatusReasonStart DateExpiration DateVisits RequestedVisits [id number] Auto-Generated Referral [id number] PatientInjectionsSwellingReason CommentsEstablished PatientReasonCommentsInjectionsReasonCommentsRadiology XR ReasonCommentsFollow UpReasonCommentsRadiology XRSpecialtyDiagnoses / Procedures Referred By ContactReferred To ContactXR IMAGING Diagnoses Primary osteoarthritis of left knee Procedures XR KNEE GENERAL 4V AP BOTH/PA BOTH/LAT/MERC LEFT RADIOLOGIC EXAM KNEE COMPLETE 4/MORE VIEWS Garrison Lee PA-C [address] [place] [address] [place] [address] Referral IDStatusReasonStart DateExpiration DateVisits RequestedVisits [id number] Auto-Generated Referral [id number] PatientFollow UpKnee PainReason CommentsFollow UpReasonCommentsEstablished PatientReasonCommentsPT EvalPatient EducationSpecialtyDiagnoses / ProceduresReferred By ContactReferred To Contact [facility] Diagnoses Primary osteoarthritis of right shoulder Tendinopathy of right rotator cuff Cervicalgia Impingement syndrome of left shoulder Procedures CONSULT TO PHYSICAL THERAPY PHYSICAL THERAPY EVALUATION HIGH COMPLEX 45 MINS Garrison Lee PA-C [address] [place] [address] Phone: tel: fax: [facility] [address] [place] [address] Referral IDStatusReasonStart DateExpiration DateVisits RequestedVisits [id number] Auto-Generated Referral [id number] Therapy INFORMATION SOURCE (unrecogn ized section and content) DATE CREATED AUTHOR 01/09/2023 [facility] DATE CREATED AUTHOR AUTHOR'S ORGANIZ ATION 03/11/2025 [facility] DATE CREATED AUTHOR AUTHOR'S ORGANIZ ATION 06/26/2025 [facility] Care Teams (unrecognized sec tion and content) Team Status: Active Member Role Status Dates Sussy Johnson MD Primary Care Provider Active Team Status: Inactive Member Role Status Dates Sussy Johnson MD Primary Care Provider Active Start: January 17, 2024 End: January 16Lorenza Yee ProviderActiveStart: January 17, 2024 End: January 17, 2024 Team Status: Active Member Role Status Dates Sussy Johnson MD Primary Care Provider Active Start: January 17, 2024 Danica Foley ProviderActiveStart: January 17, 2024 Team Status: Inactive Member Role Status Dates Sussy Johnson MD Primary Care Provider Active Start: February 15, 2024 End: February 14Lorenza Yee ProviderActiveStart: February 15, 2024 End: February 15, 2024 Team Status: Inactive Member Role Status Dates Sussy Johnson MD Primary Care Provider Active Start: May 15, 2024 End: May 15Oriana Frost ProviderActiveStart: May 15, 2024 End: May 15, 2024 Team Status: Inactive Member Role Status Dates Sussy Johnson MD Primary Care Provider Active Start: February 21, 2025 End: February 21, 2025Martine Cade NP-CAttending ProviderActiveStart: February 21, 2025 End: February 21, 2025 Team Status: Active Member Role Status Dates Piyush Bui , Primary Care Provider Active Team Status: Inactive Member Role Status Dates Piyush Bui , Primary Care Provider Active Start: May 04, 2025 End: May 04enabhilash Bui , Attending ProviderActiveStart: May 04, 2025 End: May 04, 2025 Team Status: Active Member Role Status Dates Piyush Bui , Primary Care Provider Active Start: May 12, 2025 Piyush Bui , Attending ProviderActiveStart: May 12, 2025 Team Status: Inactive Member Role Status Dates Piyush Bui , Primary Care Provider Active Start: May 15, 2025 End: May 15lucy Bui , DOAttending ProviderActiveStart: May 15, 2025 End: May 15, 2025 Team Status: Inactive Member Role Status Dates Piyush Bui , Primary Care Provider Active Start: May 31, 2025 End: May 31lucy Bui , DOAttending ProviderActiveStart: May 31, 2025 End: May 31, 2025 Goals (unrecognized section and content) Goals [...] BE BASED ON THE PRIMARY CLINICAL RECORDS. [facility]. provides no warranty or guarantee of the accuracy or completeness of information in this document.
== END 2025-07-30 13:51 | disposition home or self-care (01) ==
LOC: RAD 13:50
PROVIDERS: PCP Internal Medicine; Visit Provider Registered Nurse
DX: M81.0 Age-related osteoporosis without current pathological fracture (principal); M85.88 Other specified disorders of bone density and structure, other site
CPT/HCPCS: 77080

== ENCOUNTER 2025-07-30 13:52 | Outpatient (OUT) | payer OTHER, SELFPAY ==
--- NOTE | 2025-07-30 13:56 | MM_ITS ---
Patient Name: JOSELITO CARVER MR#: [id number] : 1960 Exam Date: 07/30/2025 Ordering Doctor: DR BENNETT MATUTE D.O. RADIOLOGY REPORT PROCEDURE: MM TOMOSYNTHESIS SCREENING BI COMPARISON: MM TOMOSYNTHESIS SCREENING BI, 05/17/2024. MM TOMOSYNTHESIS SCREENING BI, 02/17/2023. MG MAMM SCREEN 3D YOLANDA CAD, 05/09/2021. MG MAMM SCREEN YOLANDA W CAD, 07/01/2009. INDICATIONS: Screening Calculator Name NCI Breast Cancer Risk Assessment Tool 5 Year Breast Cancer Risk 6.70% Lifetime Breast Cancer Risk 23.20% Personal Breast Cancer No Personal Ovarian Cancer No Treatments None Family Cancers Mother with breast cancer at age 60; Aunt-maternal with breast cancer at age 65; Sister with breast cancer at age 62; Uncle-maternal with breast cancer at age 70; Brother with bladder cancer at age 58; Cousin-maternal with pancreatic cancer at age 70. LOCATION: [facility] [place] BREAST COMPOSITION: There are scattered areas of fibroglandular density. FINDINGS: RIGHT BREAST: No significant suspicious finding. LEFT BREAST: No significant suspicious finding. DIAGNOSTIC CATEGORY 1--NEGATIVE. NO CHANGE FROM COMPARISON ASSESSMENT. RECOMMENDATIONS: ROUTINE MAMMOGRAM AND CLINICAL EVALUATION IN 12 MONTHS. Dictated by: Merritt Ruggiero MD on 07/30/2025 at 15:24 Approved by: Merritt Ruggiero MD on 07/30/2025 at 15:39
--- OUTSIDE RECORDS SUMMARY | 2025-07-30 14:05 | XMS_ITS | CCD ---
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 Name Role Phone Unavailable Primary Care Provider [...] Unavailable MD Sussy Johnson Primary Care Provider MD Vlad Gallagher Attending Provider [phone] Unavailable Primary Care Provider UnavailMD Sussy Silverio Primary Care Provider MD Vlad Gallagher Attending Provider Sussy Johnson MD Primary Care Provider Obestefanía CORONADO-CMartine Attending Provider Martine Cade Admitting Unavailable Martine Cade Attending Unavailable Sussy Johnson Primary Care Unavailable Piyush Bui DO Primary Care Provider Piyush Bui DO Attending Provider ROSA, GARRISON Referring Unavailable ROSA, GARRISON Attending [...] agent; Translations: [NSAIDS (NON- STEROIDAL ANTI-INFLAMMATORY DRUG)]Drug Nnmhqyldmju28-60-5546Tbnze: See Comments [facility] Work Phone: (8 sources)Non-steroidal anti-inflammatory agentDrug Trrtenirwbp53-45-4995Dprao: See CommentsUc Health Work Phone: (2 sources)patient allergy list reviewed by nurse or physiciaPropensity to adverse fmwfhpbox81-07-5691Eiwchft:Nifty After Fifty Other (2 sources)Allergies ReconciledPropensity to adverse reactionsUnknoNorthwest Medical CenterOrions Systems Other Medications Current Medications MedicationDrug Class(es)DatesSig (Normalized)Sig (Original)alendronic acid 70 mg oral tablet (16 sources)BisphosphonateStart: 21-66-9966bxdz 1 tablet by mouth every week alendronate [...] tablet (20 sources)HMG-CoA Reductase InhibitorStart: 08-08-2024 End: 21-84-3377uwmd 1 tablet by mouth once dailyAtorvastatin 10 mg tablet Active 0 .ROUTE .COMPLEX 90 May 07, 2025 8:34am Take 1 tablet by mouth once daily Complies with drug therapyStart: 07-19-2018 End: 91-38-5231irdf 1 tablet by mouth once dailyAtorvastatin 10 [...] tablet (20 sources)Serotonin Reuptake InhibitorStart: 01-23-2025 End: 73-42-8183xqot 1 tablet by mouth once dailyCitalopram 40 mg tablet Active 40 MG PO Daily January 24, 2025 9:04pm Complies with drug therapyStart: 01-25-2024 End: 78-10-1378ucif 1 tablet by mouth once dailyCitalopram 40 mg tablet Discontinued 0 .ROUTE .COMPLEX July 25, 2024 9:40am January 23, 2025 7:14am Take 1 tablet by mouth once dailyStart: 07-02-2018 End: 02-82-0013uagz 1 tablet by mouth once dailyCitalopram 40 [...] above:Take by mouth.denosumab (2 sources)RANK Ligand InhibitorStart: 75-23-1571Lagbnh 60MG/ML Prolia( 60MG/ML Subcutaneous ) Active -Hx Entry Subcutaneous for 0 Dr. Gallagher *Pickstrength- form from [facility] for eRX* Jun, Activeflaxseed oil (OMEGA [...] on above:Take by mouth.Lidocaine-Glycerin 2% (2 sources)Start: 17-15-6266Pykcazxhm-Glycerin 2% lidocaine-glycerin 2%, 1 (one) kit as needed # 1, 06/30/2022, Ref. x3. Activemucous membrane as needed for 0 alternative to lidocaine 2% gel...? *Reorder from [facility] for eRx and Interaction Alerts* Jun, ActiveLidocaine-Hyalur Zt-Opjj-Ywjo (1 source)Start: 01-49-5165Lgpawjqeb-Hyalur Ex-Ilre-Aimb Active 1 APPLIC TOPICAL Twice daily May [...] mg oral tablet (16 sources)Histamine-2 Receptor AntagonistStart: 80-98-1869xoah 1 tablet by mouth twice dailyranitidine (ZANTAC) 150 mg tablet Take 150 mg by mouth twice daily. 4 07/02/2018 ActiveComment on above:Take 150 mg by mouth twice daily. Completed/Discontinued Medications MedicationDrug Class(es)DatesSig (Normalized)Sig (Original)baclofen 10 mg oral tablet (20 sources)gamma-Aminobutyric Acid-ergic AgonistStart: 07-22-2018 End: 58-45-9334iwbx 1 tablet by mouth once dailyBaclofen 10 mg tablet Discontinued 10 MG PO Daily May 15, 2024 12:00am May 15, 2024 2:17pmComment on above:Take 10 mg by mouth as needed. estradiol 0.1 mg/ml vaginal cream (20 sources)EstrogenStart: 01-17-2024 End: 23-49-8409Jezbuesjb 0.01 % (0.1 mg/gram) cream Discontinued 0 .ROUTE .COMPLEX 43 May 23, 2024 4:05pm December 04, 2024 2:02pm INSERT 1/2 GRAM VAGINALLY TWICE WEEKLYStart: 01-17-2024 End: 01-60-8062Pcgtrbvfy 0.01 % (0.1 mg/gram) cream Discontinued VAGINAL January 17, 2024 12:00am January 17, 2024 3:10pm _insert ONE-HALF GRAM VAGINALLY TWICE WEEKLY; 43 gramsStart: 20-01-5968Qnhyqxe 0.01% (0.1 mg/ Estrace 0.01% (0.1 mg/, (one half) Gram pv twice weekly # 43, 08/07/2022, Ref. x2. Active vaginal pv twice weekly for 0 *Pick strength-form from [facility] for eRX* Jul, A ctiveStart: 23-92-0954nxnoqfeja (ESTRACE) 0.01 % (0.1 mg/gram) vaginal cream Use 1 g vaginally twice a week. 3 06/09/2018ActiveComment on above:Use 1 g vaginally twice a week. 10 ml lidocaine hydrochloride 10 mg/ml injection (20 sources)Antiarrhythmic, Amide Local AnestheticStart: 01-05-2025 End: 95-59-3668fiskwfhca (PF) 10 mg/mL (1 %) 8 mL injection (XYLOCAINE)Start: 01-05-2025 End: mL, Injection - FOR ORTHO USE ONLY, ONCE, 1 dose, Starting on Wed01/05/25 at 1141, Until Wed01/05/25 at 1141Start: 12-15-2024 End: 41-45-0915tjkzzgjlo (PF) 10 mg/mL (1 %) 4 mL injection (XYLOCAINE)Start: 12-15-2024 End: mL, Injection - FOR ORTHO USE ONLY, ONCE, 1 dose, Starting on Wed12/15/24 at 1037, Until Wed12/15/24 at 1037Start: 07-25-2024 End: 33-33-6675dhlxdtljx (PF) 10 mg/mL (1 %) 4 mL injection (XYLOCAINE)Start: 07-25-2024 End: mL, Injection - FOR ORTHO USE ONLY, ONCE, 1 dose, Starting on Wed07/25/24 at 1419, Until Wed07/25/24 at 1419Start: 72-27-0496Eyuwbrhdx Hcl 2 % jelly in applicator Active 1 APPLIC TOPICAL Daily May 15, 2024 12:00am Complies with drug therapyStart: 05-15-2024 End: 55-44-5145Fpbmrdplw-Hyalur Zt-Nszg-Ejrc 2 % gel Discontinued 1 APPLIC TOPICAL Twice daily as needed 2023 12:00am May 15, 2024 3:54pmStart: 03-03-2023 End: 02-04-5712mopzxkuui (PF) 10 mg/mL (1 %) 4 mL injection (XYLOCAINE)Start: 06-09-2022 End: 55-80-5911kjsgbfmyk (PF) 20 mg/mL (2 %) 4 mL injection (XYLOCAINE)Start: 12-01-2021 End: 72-27-8123deaodsgxz (PF) 10 mg/mL (1 %) 4 mL injection (XYLOCAINE) predniSONE 20 mg oral tablet (6 sources)Start: 05-04-2025 End: 32-59-1320Jzucomhizz 20 mg tablet Discontinued 20 MG PO As Directed 06 05May 04, 2025 10:07am May 15, 2025 11:45am 1 tab tid w/ food x 1 days, then bid w/ food x 2 days, then qd w/ food x 3 days1 ml triamcinolone acetonide 40 mg/ml injection (11 sources)CorticosteroidStart: 01-05-2025 End: 46-42-3950mcucmngejqjzu acetonide 40 mg injection (KeNALog 40)Start: 01-05-2025 End: 76-25-325997 mg, Injection - FOR ORTHO USE ONLY, ONCE, 1 dose, Starting on Wed01/05/25 at 1141, Until Wed01/05/25 at 1141Start: 12-15-2024 End: 70-38-8631lwjssiqekvbji acetonide 40 mg injection (KeNALog 40)Start: 12-15-2024 End: 14-88-692333 mg, Injection - FOR ORTHO USE ONLY, ONCE, 1 dose, Starting on Wed12/15/24 at 1037, Until Wed12/15/24 at 1037Start: 07-25-2024 End: 61-42-4626kjshkofvmpgpn acetonide 40 mg injection (KeNALog 40)Start: 07-25-2024 End: 54-39-091432 mg, Injection - FOR ORTHO USE ONLY, ONCE, 1 dose, Starting on Wed07/25/24 at 1419, Until Wed07/25/24 at 1419Start: 03-03-2023 End: 10-42-8265ijpnusrdnffrq acetonide 40 mg injection (KeNALog 40)Start: 06-09-2022 End: 01-90-5336kabopfcgqdxvz acetonide 40 mg injection (KeNALog 40)Start: 12-01-2021 End: 58-37-2846ecdlblbqrkahq acetonide 40 mg injection (KENALOG 40) Problems Active Problems Problem ClassificationProblemDateDocumented DateEpisodic/ChronicDisorders of lipid metabolism (10 sources)Hyperlipidemia; Translations: [Hyperlipidemia, unspecified] 03-30-8753JyewskySjmlynlqhi disorders (10 sources)Gastroesophageal reflux disease; Translations: [Gastro-esophageal reflux disease without esophagitis]85-77-2599PxidlcqSlhdjvzvncvmr and screening for infectious disease (1 source)Raised antibody titer; Translations: [Raised antibody titer]Onset: 83-01-4061SbmqfzmhRnfmibo (2 sources)Onychomycosis; Translations: [Tinea unguium]EpisodicOsteoarthritis (19 sources)Osteoarthritis of left knee joint; Translations: [Unilateral primary osteoarthritis, left knee]Onset: 81-89-0619JpkjtkuIeaswocqexly (14 sources)Age-related osteoporosis without current pathological fracture; Translations: [Osteoporosis]Onset: 50-40-9089MrcydklTuaar aftercare (1 source)Other chcf (current) drug therapy; Translations: [OTH K 12 PRINCIPAL CURRENT DRUG THERAPY]Onset: 84-02-3426KxuapwbwJcivl connective tissue disease (2 sources)Muscle pain; Translations: [Myalgia, unspecified site]EpisodicOther connective tissue disease (1 source)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; Translations: [Iliotibial band syndrome, left leg]44-46-6815DizsdyijRkexq connective tissue disease (3 sources)Disorder of rotator cuff; Translations: [Unspecified disorder of synovium and tendon, right shoulder]74-11-2001LtlqwdbgYgtwg connective tissue disease (3 sources)Impingement syndrome of left shoulder region; Translations: [Impingement syndrome of left shoulder]28-01-2552QjnlzlvzUmcix connective tissue disease (6 sources)Rotator cuff impingement syndrome; Translations: [Impingement syndrome of left shoulder]19-20-9412ByneesztWfnnd non-traumatic joint disorders (9 sources)Pain of right shoulder joint; Translations: [Pain in right shoulder] Onset: 747770-87-6512GxljztkyIpnfh non-traumatic joint disorders (5 sources)Bilateral shoulder joint pain; Translations: [Pain in right shoulder] 35-29-3551DiptdegsGhdqd non-traumatic joint disorders (2 sources)Hip pain; Translations: [Pain in left hip]56-57-5082TljupreiOioxb screening for suspected conditions (not mental disorders or infectious disease) (16 sources)Patient encounter status; Translations: [Encounter for screening for malignant neoplasm of colon]18-70-3192QjbidyocCnrsgwkmrru; intervertebral disc disorders; other back problems (7 sources)Lumbar spondylosis; Translations: [Spondylosis without myelopathy or radiculopathy, lumbar region]91-96-8157CpxscyvIirjtjxnawu; intervertebral disc disorders; other back problems (14 sources)Cervicalgia; Translations: [Neck pain]Onset: 42-36-4436Tehishbk Unclassified (4 sources)Encounter for health counseling related to travel; Translations: [ENC FOR HEALTH SKI PATROLLER RELTD TRAVEL]Onset: 47-61-1826Jnnbdgeoxtap (1 source)CONTACT W/AND (SUSP) EXPOS COVID-19; Translations: [CONTACT W/AND (SUSP) EXPOS COVID-19]Onset: 19-59-2138Spdrgrdkyeqq (1 source)Established PatientOnset: 06-22-2025 Past or Other Problems Problem ClassificationProblemDateDocumented DateEpisodic/ChronicOther connective tissue disease (4 sources)Pain in right foot; Translations: [PAIN IN RIGHT FOOT]Onset: 23-76-6796WjidffvyFsgws connective tissue disease (1 source)Myalgia, unspecified site; Translations: [MYALGIA UNSPECIFIED SITE] Onset: 09-29-8270SgfvtuboKyful connective tissue disease (1 source)Unspecified disorder of synovium and tendon, right shoulder; Translations: [Tendinopathy of right rotator cuff]Onset: 05-41-2896TfbikjhaSgpdd connective tissue disease (1 source)Impingement syndrome of left shoulder; Translations: [Impingement syndrome of left shoulder]Onset: 50-59-5853KktdmcmuJqwwg non-traumatic joint disorders (1 source)Pain in right ankle and joints of right foot; Translations: [PAIN IN RIGHT ANKLE]Onset: 16-71-0476MddseayuEotwb non-traumatic joint disorders (5 sources)Pain in left shoulder; Translations: [Left shoulder pain]Onset: 478356-78-2288VjdfeohwSupko non-traumatic joint disorders (2 sources)Pain in right shoulder; Translations: [Pain in joint of right shoulder]Onset: 97-74-8329HvisuuewWummfcxdvfhn (2 sources)Low back pain with radiation; Translations: [Low back pain with radiation] Results Test NameValueInterpretationReference RangeFacilityCNOVon 30-55-8756PCKUEbezst Visit (LOORRM) SVETLANA CARVER ([id number]) 1960 F Date Time Provider Department 06/22/25 2:00 PM GARRISON LEE LOORRLizzie During your visit today, we recorded the following information about you: Garrison Lee PA-C 06/25/2025 10:26 AM Signed PROCEDURE NOTE: Svetlana Carver Medical Record: [id number] Primary osteoarthritis of left knee (primary encounter [...] these instructions. Informed Consent Consent Obtained: Written Hayes Protocol A moment to CARE was completed. [...] [M17.12] Order(s):Large Joint Arthro/Inj: L knee joint [MTE018] Order #: [id number] [] lidocaine (PF) 10 mg/mL (1 %) [...] Inj-ORTHO Encounter Status:Closed by GARRISON LEE on [facility]/25[facility] 47-89-1782YTJZObtphs Visit (LOORRM) SVETLANA CARVER ([id number]) 1960 F Date Time Provider Department 06/19/25 10:00 AM GARRISON LEE LOORRLizzie During your visit today, we recorded the following information about you: Garrison Lee PA-C 06/19/2025 10:13 AM Signed This document has been created with the use of voice recognition technology, including Quant [employer] Scribe technology. It may contain inaccuracies: misspellings, [...] Consent Consent Obtained: Celso (more content not included)...NormalWvumedicine Barnesville HospitalBasophils Auto (Bld) [#/Vol]Ordered By: Piyush Bui on 05-12-2025 Basophils (Bld) [#/Vol]0.1 10 3/uL0.0-0.1FSelect Medical [facility]Health Rehabilitation Hospital Basophils/100 WBC Auto (Bld)Ordered By: Piyush Bui on 06-73-3194Fkphhhtot/100 WBC (Bld)0.4 %0.2-2.0[facility] CenterCholesterol in LDL Calc [Mass/Vol]Ordered By: Piyush Bui on 23-35-0891Gimddqkyxgj in LDL [Mass/Vol] 98.0 mg/dLMercy Health Springfield Regional Medical CenterComment on above:<100 mg/dl TURQILX944-998 mg/dl NEAR OR ABOVE WCJFUEN117-807 mg/dl BORDERLINE HZFW102-675 mg/dl HIGH>190 mg/dl VERY HIGHCholesterol in VLDL Calc [Mass/Vol]Ordered By: Piyush Bui on 78-10-1141Fyjggqfonrt in VLDL [Mass/Vol]19.6 mg/dLMercy Health Springfield Regional Medical CenterEosinophils/100 WBC Auto (Bld)Ordered By: Piyush Bui on 88-69-4141Bsmjeglktdu/100 WBC (Bld)0.6 %Low0.9-7.0[facility] CenterErythrocyte distribution width Auto (RBC) [Ratio]Ordered By: Piyush Bui on 03-43-8095Iahvjxwxuvg distribution width (RBC) [Ratio]12.4 %11.0-15.0 [facility] CenterGlobulin Calc (S) [Mass/Vol]Ordered By: Piyush Bui on 38-78-7595Wanxoqdf (S) [Mass/Vol]4.5 g/dLMercy Health Springfield Regional Medical CenterGlomerular filtration rate (GFR) estimation in non- AmericanOrdered By: Piyush Bui on 86-50-4559KYW/1.73 sq M.predicted among non-blacks MDRD (S/P/Bld) [Vol rate/Area]mL/min/{1.73_m2}>=60 mL/min/1.73m 2 [facility] CenterHematocrit Auto (Bld) [Volume fraction]Ordered By: Piyush Bui on 05-84-8089Xkhpbwiufa (Bld) [Volume fraction]42.1 %36.0-48.0 [facility] CenterHemoglobin [Mass/volume] in BloodOrdered By: Piyush Bui on 13-40-1565Myvurdhgqa (Bld) [Mass/Vol]13.9 g/dL12.0-16.0 [facility] CenterLaboratory - Chemistry and Chemistry - challengeOrdered By: Piyush Bui on 50-63-5933Wkqoxoq [Mass/Vol]3.5 g/dL 3.4-5.0[facility] CenterALP [Catalytic activity/Vol]59 U/L46-116 [facility] CenterALT [Catalytic activity/Vol]31 U/L14-59 [facility] CenterAST [Catalytic activity/Vol]24 U/L15-37 [facility] CenterBilirubin [Mass/Vol]0.2 mg/dL0.2-1.0[facility] CenterCalcium [Mass/Vol]9.1 mg/dL8.5-10.1FSelect Medical OhioHealth Rehabilitation HospitalChloride [Moles/Vol]103 mmol/V56-882GgvfmoxroMercy Health Springfield Regional Medical CenterCholesterol [Mass/Vol]187 mg/dL<=200[facility] Cholesterol in HDL [Mass/Vol]70 mg/eRDvdf06-59RfddtzizvMercy Health [facility] Center Comment on above:> or =60 mg/dl - LOW CARDIOVASCULAR RISK<40 mg/dl - HIGH CARDIOVASCULAR RISKCO2 [Moles/Vol]28.6 mmol/L21.0-32.0[facility] CenterCreatinine [Mass/Vol]0.72 mg/dL0.55-1.02[facility] GFR/1.73 sq M.predicted MDRD (S/P/Bld) [Vol rate/Area]mL/min/{1.73_m2}>=60 mL/min/1.73m 2FSelect Medical OhioHealth Rehabilitation HospitalGlucose [Mass/Vol]84 mg/tQ81-776 [facility] CenterPotassium [Moles/Vol]4.1 mmol/L3.5-5.1FSelect Medical [facility]Health Rehabilitation HospitalProtein [Mass/Vol]8.0 g/dL6.4-8.2FMemorial Health Systemodium [Moles/Vol]139 mmol/S569-075FbdbntxyoMercy Health Springfield Regional Medical CenterTriglyceride [Mass/Vol]98 mg/dL<=150[facility] CenterTSH Qn1.935 m[IU]/L0.358-3.740[facility] CenterUrea nitrogen [Mass/Vol]18.0 mg/dL7.0-18.0[facility] CenterUrea nitrogen/Creatinine [Mass ratio]25.0 mg/mgMercy Health Springfield Regional Medical Center Laboratory - Hematology and Cell countsOrdered By: Piyush Bui on 05-12-2025 Immature granulocytes/100 WBC (Bld)0.4 %0.0-0.5FSelect Medical [facility] Rehabilitation Hospital Leukocytes [#/volume] corrected for nucleated erythrocytes in Blood by Automated counOrdered By: Piyush Bui on 76-96-6126LLK corrected for nucl RBC Auto (Bld) [#/Vol]11.8 10 3/uLHigh4.0-11.0[facility] Lymphocytes Auto (Bld) [#/Vol]Ordered By: Piyush Bui on 66-94-4556Cgirhtkzndi (Bld) [#/Vol]2.9 10 3/uL1.2-3.8[facility] CenterLymphocytes/100 WBC Auto (Bld)Ordered By: Piyush Bui on 15-50-1979Drymnvmnndj/100 WBC (Bld) 24.8 %20.5-60.0[facility] Auto (RBC) [Entitic mass] Ordered By: Piyush Bui on 15-23-1896FTO (RBC) [Entitic mass]31.6 pg26.7-34.0 [facility] HospitalHC Auto (RBC) [Mass/Vol]Ordered By: Piyush Bui on 90-10-1081RLOF (RBC) [Mass/Vol]33.0 g/dL29.9-35.2FShelby Memorial HospitalV Auto (RBC) [Entitic vol]Ordered By: Piyush Bui on 97-70-1237ZLX (RBC) [Entitic vol]95.7 fL81.0-99.0[facility] CenterMicroalbumin [Mass/volume] in UrineOrdered By: Piyush Bui on 05-12-2025 Albumin DL <= 20 mg/L (U) [Mass/Vol]mg/dL<=30.0[facility] Monocytes Auto (Bld) [#/Vol]Ordered By: Pyiush Bui on 98-22-8845Zwgqvrhsg (Bld) [#/Vol]1.3 10 3/uLHigh0.3-0.8[facility] Monocytes/100 WBC Auto (Bld)Ordered By: Piyush Bui on 57-34-1442Fmopfijjf/100 WBC (Bld)11.3 %1.7-12.0[facility] CenterNeutrophils Auto (Bld) [#/Vol]Ordered By: Piyush Bui on 41-08-1531Rypyhysrywx (Bld) [#/Vol]7.4 10 3/uLHigh1.4-6.5FSelect Medical OhioHealth Rehabilitation HospitalNeutrophils/100 WBC Auto (Bld) Ordered By: Piyush Bui on 29-50-1462Pqtilxiwrsf/100 WBC (Bld)62.5 %43.0-75.0 [facility] CenterNo Panel InformationOrdered By: Piyush Bui on 13-06-1301Phcyg Random Mgbotubmbm49.76 mg/dLLow20.00-300.00[facility] CenterEosinophils # (Auto)0.1 10 3/uL0.0-0.7FSelect Medical OhioHealth Rehabilitation HospitalImmature Granulocyte # (Auto)0.05 10 3/uLHigh0.00-0.03[facility] CenterPlatelet mean volume Auto (Bld) [Entitic vol]Ordered By: Piyush Bui on 30-69-4192Khkxyagd mean volume (Bld) [Entitic vol]9.9 fL9.5-13.5 [facility] CenterPlatelets Auto (Bld) [#/Vol]Ordered By: Piyush Bui on 06-20-7776Mzwbkdnqq (Bld) [#/Vol]274 10 3/xP857-999KdvddwylyMercy Health Springfield Regional Medical CenterRBC Auto (Bld) [#/Vol]Ordered By: Piyush Bui on 65-01-9560ALZ (Bld) [#/Vol]4.40 10 6/uL4.20-5.40[facility] Southerum or plasma albumin/globulin mass ratioOrdered By: Piyush Bui on 88-36-5645Gzjbalq/Globulin [Mass ratio]0.8 {ratio}[facility] Southerum or plasma anion gap determinationOrdered By: Piyush aHo on 53-18-0247Tclio gap [Moles/Vol]11.5 mmol/LFMemorial Health Systemerum or plasma total cholesterol/high density lipoprotein (HDL) cholesterol mass rat Ordered By: Piyush Hao on 03-18-6036Xmtkwftxgzf.total/Cholesterol in HDL [Mass ratio]2.7 {ratio}[facility] CenterComment on above:3.3 - 4.4 LOW RISK4.4 - 7.1 AVERAGE RISK7.1 - 11.0 MODERATE RISK>11.0 HIGH RISKAlanine aminotransferase [Enzymatic activity/volume] in Serum or PlasmaOrdered By: Martine Cade on 00-07-1033SLQ [Catalytic activity/Vol]22 U/L7-52[facility] CenterComment on above:Performed By: #### CBC, ESR, ADDONUAPLUS, CMP, PHOS, MG #### [facility] [address] [place] [address] [place] #### FAYE, ANTIR, C3, CH50, CHROMATIN, ADNA, C4, HISAB #### [facility] ,Albumin [Mass/volume] in Serum or Plasma by Bromocresol green (BCG) dye binding methoOrdered By: Martine Cade on 16-30-2198Pomlssl BCG dye [Mass/Vol]4.6 g/dL 3.5-5.7FSelect Medical OhioHealth Rehabilitation HospitalAlkaline phosphatase [Enzymatic activity/volume] in Serum or PlasmaOrdered By: Martine Cade on 37-32-2302CKT [Catalytic activity/Vol]59 U/Y87-897YaaiwhdhsMercy Health Springfield Regional Medical CenterComment on above:Performed By: #### CBC, ESR, ADDONUAPLUS, CMP, PHOS, MG #### [facility] [address] [place] [address] [place] #### FAYE, ANTIR, C3, CH50, CHROMATIN, ADNA, C4, HISAB #### [facility] ,Anti-RNPon 14-66-6364Orvh-RNP1.5Kaygrt8.0-0.9[facility] Comment on above:Performed By: #### CBC, ESR, ADDONUAPLUS, CMP, PHOS, MG #### [place] [address] [place] #### FAYE, ANTIR, C3, CH50, CHROMATIN, ADNA, C4, HISAB #### [facility] ,Anti-Faye Antibodieson 06-07-6243Tpda-Faye Antibodies3.6Zyiqpc8.0-0.9[facility] Physician GroupComment on above:Performed By: #### CBC, ESR, ADDONUAPLUS, CMP, PHOS, MG #### [place] [address] [place] #### FAYE, ANTIR, C3, CH50, CHROMATIN, ADNA, C4, HISAB #### [facility] ,Anti-dsDNA(DBL)Abon 33-53-8949Treq-dsDNA(DBL)Ab<2Eziqgs2-7Lwr [facility] Physician GroupComment on above:Result Comment: Negative <5 Equivocal 5 - 9 Positive >9 Performed at: - [facility] [address] [id number] [place]yer: Haresh Obregon PhD, Phone: [phone] By: #### CBC, ESR, ADDONUAPLUS, CMP, PHOS, MG #### [facility] [address] [place] [address] [place] #### FAYE, ANTIR, C3, CH50, CHROMATIN, ADNA, C4, HISAB #### [facility] ,Appearance of UrineOrdered By: Martine Cade on 85-11-5947Hznajxkdbc (U)[facility] HospitalComment on above:Order Comment: Name Collection Type:: Clean-Voided MidstreamPerformed By: #### CBC, ESR, ADDONUAPLUS, CMP, PHOS, MG #### [facility] [address] [place] [address] [place] #### FAYE, ANTIR, C3, CH50, CHROMATIN, ADNA, C4, HISAB #### [facility] ,Aspartate aminotransferase [Enzymatic activity/volume] in Serum or Plasma Ordered By: Martine Cade on 09-43-0870JEQ [Catalytic activity/Vol]26 U/L13-39 [facility] CenterComment on above:Performed By: #### CBC, ESR, ADDONUAPLUS, CMP, PHOS, MG #### [facility] [address] [place] [address] #### FAYE, ANTIR, C3, CH50, CHROMATIN, ADNA, C4, HISAB #### [facility] ,Bacteria [Presence] in Urine by AutomatedOrdered By: Martine Cade on 96-51-2408Ymoxpkyn Auto Ql (U)None seen [HPF]None SeenMercy Health Springfield Regional Medical CenterBasophils [#/volume] in Blood by Automated countOrdered By: Martine Cade on 61-32-8812Ugckyeqni (Bld) [#/Vol]0.1 10*3/uL0.0-0.2FSelect Medical OhioHealth Rehabilitation HospitalComment on above:Performed By: #### CBC, ESR, ADDONUAPLUS, CMP, PHOS, MG #### [facility] [address] [place] [address] #### FAYE, ANTIR, C3, CH50, CHROMATIN, ADNA, C4, HISAB #### [facility] ,Basophils/100 leukocytes in Blood by Automated countOrdered By: Martine Cade on 22-96-0322Ixwuwjfec/100 WBC (Bld)1.0 %.[facility] Comment on above:Performed By: #### CBC, ESR, ADDONUAPLUS, CMP, PHOS, MG #### [facility] [address] [place] [address] [place] #### FAYE, ANTIR, C3, CH50, CHROMATIN, ADNA, C4, HISAB #### [facility] ,Bilirubin Test strip Ql (U)Ordered By: Martine Cade on 19-11-3446Rgffripzh Ql (U)NegativeNegativeMercy Health Springfield Regional Medical CenterBilirubin.total [Mass/volume] in Serum or PlasmaOrdered By: Martine Cade on 02-21-2025 Bilirubin [Mass/Vol]0.4 mg/dL0.3-1.0[facility] CenterComment on above:Performed By: #### CBC, ESR, ADDONUAPLUS, CMP, PHOS, MG #### [facility] [address] [place] [address] #### FAYE, ANTIR, C3, CH50, CHROMATIN, ADNA, C4, HISAB #### [facility] ,Calcium [Mass/volume] in Serum or PlasmaOrdered By: Martine Cade on 20-40-5595Woqavlk [Mass/Vol]10.0 mg/dL8.6-10.3FSelect Medical [facility] Comment on above:Performed By: #### CBC, ESR, ADDONUAPLUS, CMP, PHOS, MG #### [place] [address] [place] #### FAYE, ANTIR, C3, CH50, CHROMATIN, ADNA, C4, HISAB #### [facility] ,Carbon dioxide, total [Moles/volume] in Serum or PlasmaOrdered By: Martine Cade on 78-72-0961AC4 [Moles/Vol]29.4 mmol/L21.0-31.0[facility] Medical CenterComment on above:Performed By: #### CBC, ESR, ADDONUAPLUS, CMP, PHOS, MG #### [facility] [address] [place] [address] [place] #### FAYE, ANTIR, C3, CH50, CHROMATIN, ADNA, C4, HISAB #### [facility] ,Chloride [Moles/volume] in Serum or PlasmaOrdered By: Martine Cade on 87-60-2873Rwohyozz [Moles/Vol]105 mmol/J60-457PagpavbjmMercy Health Springfield Regional Medical Center Comment on above:Performed By: #### CBC, ESR, ADDONUAPLUS, CMP, PHOS, MG #### [address] #### FAYE, ANTIR, C3, CH50, CHROMATIN, ADNA, C4, HISAB #### [facility] ,Chromatin Antibodyon 15-22-0506Thdlowdjc Antibody1.5Uqpwwc7.0-0.9The [facility] Physician GroupComment on above:Result Comment: PERFORMED BY: [place] [id number] PATHOLOGIST PROPAGATION MANAGER MERLINE WISE M.D.Performed By: #### CBC, ESR, ADDONUAPLUS, CMP, PHOS, MG #### [address] #### FAYE, ANTIR, C3, CH50, CHROMATIN, ADNA, C4, HISAB #### [facility] ,Color of Urine by AutoOrdered By: Martine Cade on 65-49-3381Jtqjw (U)Yellow [facility]CMC Healthcare System GlenbeighComment on above:Order Comment: Name Collection Type:: Clean-Voided MidstreamPerformed By: #### CBC, ESR, ADDONUAPLUS, CMP, PHOS, MG #### [place] [address] [place] #### FAYE, ANTIR, C3, CH50, CHROMATIN, ADNA, C4, HISAB #### [facility] ,Complement C3on 49-20-2460Cfzebnnung C3164 mg/dEUcmqfj14-256Uyi [facility] GroupComment on above:Result Comment: Performed at: [facility] [id number] Gang Sawyer: Haresh Obregon PhD, Phone: [phone] By: #### CBC, ESR, ADDONUAPLUS, CMP, PHOS, MG #### [place] [address] [place] #### FAYE, ANTIR, C3, CH50, CHROMATIN, ADNA, C4, HISAB #### [facility] ,Complement C4on 93-17-0384Wpmgoplajf C430 mg/rLNxqmhp59-10Tag [facility] Physician GroupComment on above:Performed By: #### CBC, ESR, ADDONUAPLUS, CMP, PHOS, MG #### [address] #### FAYE, ANTIR, C3, CH50, CHROMATIN, ADNA, C4, HISAB #### [facility] ,Complement Total (CH50)on 00-07-8541Mnroblkmjc Total (CH50)59Normal>41The [facility] Physician GroupComment on above:Result Comment: Age Male [...] of range values. Performed at: - [facility] [address] [id number] Gang Sawyer: Haresh Obregon PhD, Phone: [phone] PERFORMED BY: [place] [id number] PATHOLOGIST PROPAGATION MANAGER MERLINE WISE M.D.Performed By: #### CBC, ESR, ADDONUAPLUS, CMP, PHOS, MG #### [address] #### FAYE, ANTIR, C3, CH50, CHROMATIN, ADNA, C4, HISAB #### [facility] ,Complete Blood Count Auto Diffon 37-90-8256Djxs Corpuscular HGB Conc33.1 g/dL Ghutgt47.0-35.0The [facility] Physician [facility] HospitalComment on above:Performed By: #### CBC, ESR, ADDONUAPLUS, CMP, PHOS, MG #### [address] [place] [address] [place] #### FAYE, ANTIR, C3, CH50, CHROMATIN, ADNA, C4, HISAB #### [facility] ,NRBC%0.0 /100{WBC}Normal0-0.5The [facility] Physician GroupComment on above: Performed By: #### CBC, ESR, ADDONUAPLUS, CMP, PHOS, MG #### [address] #### FAYE, ANTIR, C3, CH50, CHROMATIN, ADNA, C4, HISAB #### [facility] ,White Blood Count8.3 [CFU]/mLNormal3.8-11.6The [facility] Physician GroupComment on above:Performed By: #### CBC, ESR, ADDONUAPLUS, CMP, PHOS, MG #### [address] #### FAYE, ANTIR, C3, CH50, CHROMATIN, ADNA, C4, HISAB #### [facility] ,Comprehensive Metabolic Panelon 33-58-2506Zymusbz [Mass/Vol]4.6 g/dLNormal 3.5-5.7The [facility] Physician GroupComment on above:Performed By: #### CBC, ESR, ADDONUAPLUS, CMP, PHOS, MG #### [place] [address] [place] #### FAYE, ANTIR, C3, CH50, CHROMATIN, ADNA, C4, HISAB #### [facility] ,GFR/1.73 sq M.predicted MDRD (S/P/Bld) [Vol rate/Area]mL/min/{1.73_m2}NormalThe [facility] Physician GroupComment on above:Performed By: #### CBC, ESR, ADDONUAPLUS, CMP, PHOS, MG #### [place] [address] [place] #### FAYE, ANTIR, C3, CH50, CHROMATIN, ADNA, C4, HISAB #### [facility] ,Creatinine [Mass/volume] in Serum or PlasmaOrdered By: Martine Cade on 60-64-9461Wgbezizjcc [Mass/Vol]1.02 mg/dL0.60-1.20[facility] Medical CenterComment on above:Performed By: #### CBC, ESR, ADDONUAPLUS, CMP, PHOS, MG #### [facility] [address] [place] [address] #### FAYE, ANTIR, C3, CH50, CHROMATIN, ADNA, C4, HISAB #### [facility] ,DNA double strand Ab [Units/volume] in SerumOrdered By: Martine Cade on 40-89-6979MWM double strand Ab Qn (S)[IU]/mL0-9[facility] Comment on above:Negative <5 Equivocal 5 - 9 Positive >9Performed at: [facility] [address] [id number] Director: Haresh Obregon PhD, Phone: [phone] and Microscopicon 02-21-2025 Bacteria,UrineNone SeenNormalNone SeenThe [facility] Physician GroupComment on above:Order Comment: Name Collection Type:: Clean-Voided MidstreamPerformed By: #### CBC, ESR, ADDONUAPLUS, CMP, PHOS, MG #### [facility] [address] [place] [address] [place] #### FAYE, ANTIR, C3, CH50, CHROMATIN, ADNA, C4, HISAB #### [facility] ,Bilirubin,UrineNegativeNormalNegativeThe [facility] Physician GroupComment on above:Order Comment: Name Collection Type:: Clean-Voided MidstreamPerformed By: #### CBC, ESR, ADDONUAPLUS, CMP, PHOS, MG #### [facility] [address] [place] [address] #### FAYE, ANTIR, C3, CH50, CHROMATIN, ADNA, C4, HISAB #### [facility] ,Glucose Ql (U)NormalNormalNormalThe [facility] Physician GroupComment on above: Order Comment: Name Collection Type:: Clean-Voided MidstreamPerformed By: #### CBC, ESR, ADDONUAPLUS, CMP, PHOS, MG #### [address] #### FAYE, ANTIR, C3, CH50, CHROMATIN, ADNA, C4, HISAB #### [facility] ,Hyaline Casts,UrineNoneNormal0-8The [facility] Physician GroupComment on above: Order Comment: Name Collection Type:: Clean-Voided MidstreamPerformed By: #### CBC, ESR, ADDONUAPLUS, CMP, PHOS, MG #### [address] #### FAYE, ANTIR, C3, CH50, CHROMATIN, ADNA, C4, HISAB #### [facility] ,Mucus,UrineRareNormalThe [facility] Physician GroupComment on above:Order Comment: Name Collection Type:: Clean-Voided MidstreamResult Comment: PERFORMED BY: [place] [id number] PATHOLOGIST PROPAGATION MANAGER MERLINE WISE M.D.Performed By: #### CBC, ESR, ADDONUAPLUS, CMP, PHOS, MG #### [address] #### FAYE, ANTIR, C3, CH50, CHROMATIN, ADNA, C4, HISAB #### [facility] ,Nitrite,UrineNegativeNormalNegativeThe [facility] Physician GroupComment on above:Order Comment: Name Collection Type:: Clean-Voided MidstreamPerformed By: #### CBC, ESR, ADDONUAPLUS, CMP, PHOS, MG #### [address] #### FAYE, ANTIR, C3, CH50, CHROMATIN, ADNA, C4, HISAB #### [facility] ,Occult Blood,UrineNegativeNormalNegativeHca [facility] Physician GroupComment on above:Order Comment: Name Collection Type:: Clean-Voided MidstreamPerformed By: #### CBC, ESR, ADDONUAPLUS, CMP, PHOS, MG #### [address] #### FAYE, ANTIR, C3, CH50, CHROMATIN, ADNA, C4, HISAB #### [facility] ,Protein,UrineNegativeNormalNegativeHca [facility] Physician GroupComment on above:Order Comment: Name Collection Type:: Clean-Voided MidstreamPerformed By: #### CBC, ESR, ADDONUAPLUS, CMP, PHOS, MG #### [address] #### FAYE, ANTIR, C3, CH50, CHROMATIN, ADNA, C4, HISAB #### [facility] ,RBC,Zlbft9-9Inlrdh9-3Uax [facility] Physician GroupComment on above:Order Comment: Name Collection Type:: Clean-Voided MidstreamPerformed By: #### CBC, ESR, ADDONUAPLUS, CMP, PHOS, MG #### [address] #### FAYE, ANTIR, C3, CH50, CHROMATIN, ADNA, C4, HISAB #### [facility] ,Specificy [place],Urine1.750Rwmdik8.001-1.030The [facility] Group Comment on above:Order Comment: Name Collection Type:: Clean-Voided Midstream Performed By: #### CBC, ESR, ADDONUAPLUS, CMP, PHOS, MG #### [facility] [address] [place] [address] #### FAYE, ANTIR, C3, CH50, CHROMATIN, ADNA, C4, HISAB #### [facility] ,Urobilinogen,UrineNormalNormalNormalThe [facility] Physician GroupComment on above:Order Comment: Name Collection Type:: Clean-Voided MidstreamPerformed By: #### CBC, ESR, ADDONUAPLUS, CMP, PHOS, MG #### [place] [address] [place] #### FAYE, ANTIR, C3, CH50, CHROMATIN, ADNA, C4, HISAB #### [facility] ,WBC,Frhby7-8Xqutpa5-6Tzr [facility] Physician GroupComment on above:Order Comment: Name Collection Type:: Clean-Voided MidstreamPerformed By: #### CBC, ESR, ADDONUAPLUS, CMP, PHOS, MG #### [address] #### FAYE, ANTIR, C3, CH50, CHROMATIN, ADNA, C4, HISAB #### [facility] ,Eosinophils [#/volume] in Blood by Automated countOrdered By: Martine Cade on 93-52-7634Spyiyujvklm (Bld) [#/Vol]0.1 10*3/uL0.0-0.45[facility] Medical CenterComment on above:Performed By: #### CBC, ESR, ADDONUAPLUS, CMP, PHOS, MG #### [address] #### FAYE, ANTIR, C3, CH50, CHROMATIN, ADNA, C4, HISAB #### [facility] ,Eosinophils/100 leukocytes in Blood by Automated countOrdered By: Martine Cade on 75-65-7076Ceyqejkfipx/100 WBC (Bld)1.0 %.[facility] Medical CenterComment on above:Performed By: #### CBC, ESR, ADDONUAPLUS, CMP, PHOS, MG #### [place] [address] [place] #### FAYE, ANTIR, C3, CH50, CHROMATIN, ADNA, C4, HISAB #### [facility] ,Epithelial cells.squamous [#/area] in Urine sediment by Automated countOrdered By: Martine Cade on 54-79-7381Zaihqyfiwr cells.squamous Auto (Urine sed) [#/Area]N/AFSelect Medical OhioHealth Rehabilitation HospitalErythrocyte Sedimentation Rateon 28-57-9892PHA (Bld) [Velocity]36 mm/hHigh0-29The [facility] Group Comment on above:Result Comment: PERFORMED BY: [place] [id number] PATHOLOGIST PROPAGATION MANAGER MERLINE WISE M.D.Performed By: #### CBC, ESR, ADDONUAPLUS, CMP, PHOS, MG #### [address] #### FAYE, ANTIR, C3, CH50, CHROMATIN, ADNA, C4, HISAB #### [facility] ,Erythrocyte distribution width [Ratio] by Automated countOrdered By: Martine Cade on 75-59-1861Yweaykfkyun distribution width (RBC) [Ratio]13.4 % 11.9-15.3FSelect Medical OhioHealth Rehabilitation HospitalComment on above:Performed By: #### CBC, ESR, ADDONUAPLUS, CMP, PHOS, MG #### [address] #### FAYE, ANTIR, C3, CH50, CHROMATIN, ADNA, C4, HISAB #### [facility] ,Erythrocyte sedimentation rate by Photometric methodOrdered By: Martine Cade on 48-02-8202XXO Photometric method (Bld) [Velocity]36 mm/hrHigh0-29[facility] Medical CenterErythrocytes [#/area] in Urine sediment by Automated countOrdered By: Martine Cade on 96-10-3073VTV Auto (Urine sed) [#/Area]1-2 [HPF]0-4FSelect Medical OhioHealth Rehabilitation HospitalErythrocytes [#/volume] in Blood by Automated countOrdered By: Martine Cade on 13-45-9207RDU (Bld) [#/Vol]4.31 10*6/uL3.60-5.00[facility] Medical CenterComment on above:Performed By: #### CBC, ESR, ADDONUAPLUS, CMP, PHOS, MG #### [address] #### FAYE, ANTIR, C3, CH50, CHROMATIN, ADNA, C4, HISAB #### [facility] ,Glucose [Mass/volume] in Serum or PlasmaOrdered By: Martine Cade on 07-43-8741Ijvajum [Mass/Vol]107 mg/yRRrmj33-845NvjaixkzxMercy Health [facility] Medical Center Comment on above:ADA recommended reference rangeRandom Glucose [...] CBC, ESR, ADDONUAPLUS, CMP, PHOS, MG #### [address] #### FAYE, ANTIR, C3, CH50, CHROMATIN, ADNA, C4, HISAB #### [facility] ,Glucose [Mass/volume] in Urine by Test stripOrdered By: Martine Cade on 67-35-3688Phmxhhm Test strip (U) [Mass/Vol]Normal mg/dLNormSelect Medical Specialty Hospital - TrumbullHematocrit [Volume Fraction] of Blood by Automated countOrdered By: Martine Cade on 49-34-6023Eatoaqexhg (Bld) [Volume fraction]40.7 % 34.0-46.4FSelect Medical OhioHealth Rehabilitation HospitalComment on above:Performed By: #### CBC, ESR, ADDONUAPLUS, CMP, PHOS, MG #### [place] [address] [place] #### FAYE, ANTIR, C3, CH50, CHROMATIN, ADNA, C4, HISAB #### [facility] ,Hemoglobin Test strip Ql (U)Ordered By: Martine Cade on 38-94-4115Yixlhporic Ql (U)NegativeNegWexner Medical CenterHemoglobin [Mass/volume] in BloodOrdered By: Martine Cade on 23-16-3176Jqebxnjaup (Bld) [Mass/Vol]13.5 g/dL11.8-15.4FSelect Medical OhioHealth Rehabilitation HospitalComment on above:Performed By: #### CBC, ESR, ADDONUAPLUS, CMP, PHOS, MG #### [facility] [address] #### FAYE, ANTIR, C3, CH50, CHROMATIN, ADNA, C4, HISAB #### [facility] ,Histone Antibodieson 68-10-5302Tdsoxqd Antibodies0.3Dxqacv6.0-0.9The [facility] Physician GroupComment on above:Result Comment: Negative <1.0 Weak Positive 1.0 - 1.5 Moderate Positive 1.6 - 2.5 Strong Positive >2.5 Performed at: - [facility] [id number] Gang Sawyer: Josephine Joseph MD, Phone: [phone] By: #### CBC, ESR, ADDONUAPLUS, CMP, PHOS, MG #### [place] [address] [place] #### FAYE, ANTIR, C3, CH50, CHROMATIN, ADNA, C4, HISAB #### [facility] ,Hyaline casts [#/area] in Urine sediment by Automated countOrdered By: Martine Cade on 97-65-3859Yifsojl casts Auto (Urine sed) [#/Area]None [LPF]0-8 [facility] Medical CenterKetones [Presence] in Urine by Test strip Ordered By: Martine Cade on 61-39-6464Efgasro Ql (U)NegativeNegWexner Medical CenterComment on above:Order Comment: Name Collection Type:: Clean-Voided MidstreamPerformed By: #### CBC, ESR, ADDONUAPLUS, CMP, PHOS, MG #### [facility] [address] [place] [address] [place] #### FAYE, ANTIR, C3, CH50, CHROMATIN, ADNA, C4, HISAB #### [facility] ,Leukocyte esterase [Presence] in Urine by Test stripOrdered By: Martine Cade on 75-50-9113Rjhdnijrj esterase Test strip Ql (U)NegativeNegativeMercy Health Springfield Regional Medical CenterComment on above:Order Comment: Name Collection Type:: Clean-Voided MidstreamPerformed By: #### CBC, ESR, ADDONUAPLUS, CMP, PHOS, MG #### [place] [address] [place] #### FAYE, ANTIR, C3, CH50, CHROMATIN, ADNA, C4, HISAB #### [facility] ,Leukocytes [#/area] in Urine sediment by Automated countOrdered By: Martine Cade on 07-19-7042GRH Auto (Urine sed) [#/Area]1-2 [HPF]0-4FSelect Medical OhioHealth Rehabilitation HospitalLeukocytes [#/volume] corrected for nucleated erythrocytes in Blood by Automated counOrdered By: Martine Cade on 02-21-2025 WBC corrected for nucl RBC Auto (Bld) [#/Vol]8.3 10*3/uL3.8-11.6FSelect Medical OhioHealth Rehabilitation HospitalLeukocytes [#/volume] in Blood by Automated countOrdered By: Martine Cade on 80-54-6829YEB (Bld) [#/Vol]8.3 10*3/uL3.8-11.6FSelect Medical OhioHealth Rehabilitation HospitalComment on above:Performed By: #### CBC, ESR, ADDONUAPLUS, CMP, PHOS, MG #### [facility] [address] [place] [address] [place] #### FAYE, ANTIR, C3, CH50, CHROMATIN, ADNA, C4, HISAB #### [facility] ,Lymphocytes [#/volume] in Blood by Automated countOrdered By: Martine Cade on 06-36-8045Hdehgvdjfnu (Bld) [#/Vol]1.9 10*3/uL1.00-4.8[facility] Medical CenterComment on above:Performed By: #### CBC, ESR, ADDONUAPLUS, CMP, PHOS, MG #### [address] #### FAYE, ANTIR, C3, CH50, CHROMATIN, ADNA, C4, HISAB #### [facility] ,Lymphocytes/100 leukocytes in Blood by Automated countOrdered By: Martine Cade on 65-68-8831Xqfeebcwmhj/100 WBC (Bld)23.0 %.[facility] Medical CenterComment on above:Performed By: #### CBC, ESR, ADDONUAPLUS, CMP, PHOS, MG #### [place] [address] [place] #### FAYE, ANTIR, C3, CH50, CHROMATIN, ADNA, C4, HISAB #### [facility] ,MCH [Entitic mass] by Automated countOrdered By: Martine Cade on 02-21-2025 MCH (RBC) [Entitic mass]31.3 pg24.7-34.3FSelect Medical OhioHealth Rehabilitation HospitalComment on above:Performed By: #### CBC, ESR, ADDONUAPLUS, CMP, PHOS, MG #### [place] [address] [place] #### FAYE, ANTIR, C3, CH50, CHROMATIN, ADNA, C4, HISAB #### [facility] ,MCHC Auto (RBC) [Mass/Vol]Ordered By: Maritne Cade on 15-41-7886JSRS (RBC) [Mass/Vol]33.1 g/dL32.0-35.0[facility] Medical CenterMCV [Entitic volume] by Automated countOrdered By: Martine Cade on 06-41-4543GOB (RBC) [Entitic vol]94.5 gI51-420Qcqaykote Regional Medical CenterComment on above: Performed By: #### CBC, ESR, ADDONUAPLUS, CMP, PHOS, MG #### [address] #### FAYE, ANTIR, C3, CH50, CHROMATIN, ADNA, C4, HISAB #### [facility] ,Magnesium [Mass/volume] in Serum or PlasmaOrdered By: Martine Cade on 56-35-5030Wjgzxwhfy [Mass/Vol]2.2 mg/dL1.9-2.7FSelect Medical OhioHealth Rehabilitation Hospital Comment on above:Result Comment: PERFORMED BY: [place] [id number] PATHOLOGIST PROPAGATION MANAGER MERLINE WISE M.D.Performed By: #### CBC, ESR, ADDONUAPLUS, CMP, PHOS, MG #### [address] #### FAYE, ANTIR, C3, CH50, CHROMATIN, ADNA, C4, HISAB #### [facility] ,Monocytes [#/volume] in Blood by Automated countOrdered By: Martine Cade on 36-25-2878Nyoywktiw (Bld) [#/Vol]0.6 10*3/uL0.0-0.8[facility] Medical CenterComment on above:Performed By: #### CBC, ESR, ADDONUAPLUS, CMP, PHOS, MG #### [address] #### FAYE, ANTIR, C3, CH50, CHROMATIN, ADNA, C4, HISAB #### [facility] ,Monocytes/100 leukocytes in Blood by Automated countOrdered By: Martine Cade on 34-45-3995Dmywhnifx/100 WBC (Bld)7.5 %.[facility] Comment on above:Performed By: #### CBC, ESR, ADDONUAPLUS, CMP, PHOS, MG #### [place] [address] [place] #### FAYE, ANTIR, C3, CH50, CHROMATIN, ADNA, C4, HISAB #### [facility] ,Mucus [Presence] in Urine by AutomatedOrdered By: Martine Cade on 02-21-2025 Mucus Auto Ql (U)Rare [LPF][facility] Medical CenterNeutrophils [#/volume] in Blood by Automated countOrdered By: Martine Cade on 02-21-2025 Neutrophils (Bld) [#/Vol]5.6 10*3/uL1.8-7.7FSelect Medical OhioHealth Rehabilitation Hospital Comment on above:Performed By: #### CBC, ESR, ADDONUAPLUS, CMP, PHOS, MG #### [address] #### FAYE, ANTIR, C3, CH50, CHROMATIN, ADNA, C4, HISAB #### [facility] ,Neutrophils/100 leukocytes in Blood by Automated countOrdered By: Martine Cade on 90-51-2181Acfljzmtmhy/100 WBC (Bld)67.5 %.[facility] Medical CenterComment on above:Performed By: #### CBC, ESR, ADDONUAPLUS, CMP, PHOS, MG #### [place] [address] [place] #### FAYE, ANTIR, C3, CH50, CHROMATIN, ADNA, C4, HISAB #### [facility] ,Nitrite Test strip Ql (U)Ordered By: Martine Cade on 38-71-8504Phjpwiz Ql (U) NegativeNegativeMercy Health Springfield Regional Medical CenterNo Panel InformationOrdered By: Martine Cade on 98-18-4340Kxyxpdkar GFR (CKD-EPI)> 60.0 mL/MinMercy Health Springfield Regional Medical CenterPharmacy Creatinine Clearance (ChemN/[facility] CenterNucleated erythrocytes [Presence] in Blood by Automated count Ordered By: Martine Cade on 85-23-3312Kpqmvgvui RBC Auto Ql (Bld)0.0 /100{WBC} 0-0.5FSelect Medical OhioHealth Rehabilitation HospitalPhosphate [Mass/volume] in Serum or Plasma Ordered By: Martine Cade on 62-13-0933Xwtrcmbud [Mass/Vol]2.9 mg/dL2.5-4.5 [facility] Medical CenterComment on above:Performed By: #### CBC, ESR, ADDONUAPLUS, CMP, PHOS, MG #### [address] #### FAYE, ANTIR, C3, CH50, CHROMATIN, ADNA, C4, HISAB #### [facility] ,Platelet mean volume [Entitic volume] in Blood by Automated countOrdered By: Martine Cade on 29-36-5477Cypyykuk mean volume (Bld) [Entitic vol]9.9 fL 6.3-10.7FSelect Medical OhioHealth Rehabilitation HospitalComment on above:Performed By: #### CBC, ESR, ADDONUAPLUS, CMP, PHOS, MG #### [address] #### FAYE, ANTIR, C3, CH50, CHROMATIN, ADNA, C4, HISAB #### [facility] ,Platelets [#/volume] in Blood by Automated countOrdered By: Martine Cade on 03-64-0541Oqwjxmlcw (Bld) [#/Vol]244 10*3/yZ205-284FvtdnxhnbMercy Health Springfield Regional Medical CenterComment on above:Performed By: #### CBC, ESR, ADDONUAPLUS, CMP, PHOS, MG #### [place] [address] [place] #### FAYE, ANTIR, C3, CH50, CHROMATIN, ADNA, C4, HISAB #### [facility] ,Potassium [Moles/volume] in Serum or PlasmaOrdered By: Martine Cade on 40-57-6677Ihstslhiy [Moles/Vol]4.0 mmol/L3.5-5.1FSelect Medical OhioHealth Rehabilitation HospitalComment on above:Performed By: #### CBC, ESR, ADDONUAPLUS, CMP, PHOS, MG #### [place] [address] [place] #### FAYE, ANTIR, C3, CH50, CHROMATIN, ADNA, C4, HISAB #### [facility] ,Protein Test strip (U) [Mass/Vol]Ordered By: Martine Cade on 02-21-2025 Protein (U) [Mass/Vol]NegativeNegativeMercy Health Springfield Regional Medical CenterProtein [Mass/volume] in Serum or PlasmaOrdered By: Martine Cade on 30-74-6804Ubcptxj [Mass/Vol]7.2 g/dL6.4-8.9[facility] Medical CenterComment on above: Performed By: #### CBC, ESR, ADDONUAPLUS, CMP, PHOS, MG #### [place] [address] [place] #### FAYE, ANTIR, C3, CH50, CHROMATIN, ADNA, C4, HISAB #### [facility] ,Ribonucleoprotein antibody assayOrdered By: Martine Cade on 02-21-2025 Ribonucleoprotein antibody assay1.0 AIHigh0.0-0.9[facility] Southerum Faye extractable nuclear antigen (DERIC) antibody assay (units/volume)Ordered By: Martine Cade on 83-62-2107Cawid extractable nuclear Ab Qn (S)3.1 AIHigh0.0-0.9[facility] Southerum globulin measurement by calculation (mass/volume)Ordered By: Martine Cade on 02-21-2025 Globulin (S) [Mass/Vol]2.6 g/dLMercy Health Springfield Regional Medical CenterComment on above:Performed By: #### CBC, ESR, ADDONUAPLUS, CMP, PHOS, MG #### [place] [address] [place] #### FAYE, ANTIR, C3, CH50, CHROMATIN, ADNA, C4, HISAB #### [facility] ,Serum histone IgG antibody assay by immunoassay (units/volume)Ordered By: Martine Cade on 48-35-4730Lpkgqnb IgG IA Qn (S)0.8 Units0.0-0.9[facility] Medical CenterComment on above:Negative <1.0 Weak Positive 1.0 - 1.5 Moderate Positive 1.6 - 2.5 Strong Positive >2.5Performed at: - [address] [id number] Director: Josephine Almaraz, Phone: [phone] or plasma albumin/globulin mass ratioOrdered By: Martine Cade on 81-75-4102Uxesndh/Globulin [Mass ratio]1.8 {ratio}[facility] Medical CenterComment on above:Performed By: #### CBC, ESR, ADDONUAPLUS, CMP, PHOS, MG #### [facility] [address] [place] [address] #### FAYE, ANTIR, C3, CH50, CHROMATIN, ADNA, C4, HISAB #### [facility] ,Serum or plasma anion gap determinationOrdered By: Martine Cade on 02-21-2025 Anion gap [Moles/Vol]9.6 mmol/L6.0-15.0[facility] CenterComment on above:Performed By: #### CBC, ESR, ADDONUAPLUS, CMP, PHOS, MG #### [facility] [address] [place] [address] [place] #### FAYE, ANTIR, C3, CH50, CHROMATIN, ADNA, C4, HISAB #### [facility] ,Serum or plasma chromatin antibody assay (units/volume)Ordered By: Martine Cade on 04-88-2196Zhlivsmdi Ab Qn1.7 AIHigh0.0-0.9[facility] Southerum or plasma complement C3 measurement (mass/volume)Ordered By: Martine Cade on [id number] C3 [Mass/Vol]164 mg/dI23-678JpxiclkgeMercy Health Springfield Regional Medical CenterComment on above:Performed at: - [facility] [id number] Director: Haresh Obregon PhD, Phone: [phone] or plasma complement C4 measurement (mass/volume)Ordered By: Martine Cade on [id number] C4 [Mass/Vol]30 mg/cF51-80VqhmeoapfSelect Medical Specialty Hospital - [facility] Southodium [Moles/volume] in Serum or PlasmaOrdered By: Martine Cade on 91-68-1743Alwmww [Moles/Vol]140 mmol/W119-744VtypcflbfMercy Health Springfield Regional Medical CenterComment on above:Performed By: #### CBC, ESR, ADDONUAPLUS, CMP, PHOS, MG #### [address] #### FAYE, ANTIR, C3, CH50, CHROMATIN, ADNA, C4, HISAB #### [facility] ,Specific gravity Test strip (U) [Rel density]Ordered By: Martine Cade on 26-03-6888Envoqmnu gravity (U) [Rel density]1.0251.001-1.030[facility] Medical CenterTotal hemolytic complement CH50 assayOrdered By: Martine Cade on 53-77-9967Qeixs hemolytic complement CH50 assay59 U/mL>41[facility] Medical CenterComment on above:Age Male Female 1 - 30 [...] determine out of range values.Performed at: - [facility] [id number] Director: Haresh Obregon PhD, Phone: [phone] nitrogen [Mass/volume] in Serum or PlasmaOrdered By: Martine Cade on 09-06-7364Pafa nitrogen [Mass/Vol]28 mg/dLHigh7-25[facility] Medical CenterComment on above:Performed By: #### CBC, ESR, ADDONUAPLUS, CMP, PHOS, MG #### [facility] [address] #### FAYE, ANTIR, C3, CH50, CHROMATIN, ADNA, C4, HISAB #### [facility] ,Urobilinogen Test strip (U) [Mass/Vol]Ordered By: Martine Cade on 02-21-2025 Urobilinogen (U) [Mass/Vol]Normal mg/dLNormalMercy Health Springfield Regional Medical CenterpH of Urine by Test stripOrdered By: Martine Cade on 18-45-5973xX (U)5.5 [pH] 5.0-9.0[facility] Medical CenterComment on above:Order Comment: Name Collection Type:: Clean-Voided MidstreamPerformed By: #### CBC, ESR, ADDONUAPLUS, CMP, PHOS, MG #### [facility] [address] [place] [address] #### FAYE, ANTIR, C3, CH50, CHROMATIN, ADNA, C4, HISAB #### [facility] ,CNTHERAPYon 54-64-5862RXRBYZNCROT/PT/Speech Visit (LOPTRM) SVETLANA CARVER ([id number]) 1960 F Date Time Provider Department 02/13/25 10:45 AM SELENE BUCKLEY Date Time Provider Department Center 02/13/2025 10:45 AM [id number] BUCKLEY Reason for Visit: PT Discharge [752] [...] CAFFEINE ORAL Take 175 mg by mouth. Food Scientist: Therapy (PT/OT/Speech/Resp) ID: [id number] 02/13/2025 11:14 AM Author: SELENE BUCKLEY Signed by SELENE BUCKLEY PT on 02/13/2025 at 11:14 AM Document text: Program_ID:[id number] Access Code: [email or web address] URL: [email or web address]/ Date: 02-13-2025 Prepared By: Selene Buckley Program [...] - 1-2 sets - 10-15 reps Normal [facility] NTon 05-45-9381YNLMEHA NTHNO ID: [id number] Author: SELENE BUCKLEY PT Service: Physical Therapy Author Type: Physical Therapist Type: Therapy (PT/OT/Speech/Resp) Filed: 02/13/2025 11:14 Note Text: Program_ID:[id number] Access Code: [email or web address] URL: [email or web address].[email or web address]/ Date: 02-13-2025 Prepared By: Selene Buckley Program [...] x weekly - 1-2 sets - 10-15 repsNormalCOhioHealth Doctors HospitalHERAPYon 11-28-5325HXXKDFGHG OT/PT/Speech Visit (STEPHANEPTTAD) SVETLANA CARVER ([id number]) 1960 F Date Time Provider Department 01/24/25 4:30 PM SELENE BUCKLEY Date Time Provider Department Center 01/24/2025 4:30 PM [id number] BUCKLEY Reason for Visit: Physical Therapy [503] [...] CAFFEINE ORAL Take 175 mg by mouth. Food Scientist: Addendum Therapy (PT/OT/Speech/Resp) ID: [id number] 01/24/2025 5:08 PM Author: SELENE BUCKLEY Signed by SELENE BUCKLEY PT on 01/24/2025 at 5:08 PM * * * This document replaces document [id number] * * * Document text: Program_ID:[id number] Access Code: [email or web address] URL: [email or web address] Date: 01-24-2025 Prepared By: Selene Buckley Program [...] - 1-2 sets - 10-15 reps Normal [facility] ClevelandTHERAPY NTon 95-52-0804KFYURIB NTHNO ID: [id number] Author: SELENE BUCKLEY PT Service: Physical Therapy Author Type: Physical Therapist Type: Therapy (PT/OT/Speech/Resp) Filed: 01/24/2025 17:08 Note Text: Program_ID:[id number] Access Code: [email or web address] URL: [email or web address].[email or web address]/ Date: 01-24-2025 Prepared By: Selene Buckley Program [...] x weekly - 1-2 sets - 10-15 repsNormalCMain Campus Medical CentervelandCNOVon 48-54-3362SVGHBsrnuu Visit (LOORRM) SVETLANA [id number]) 1960 F Date Time Provider Department 01/05/25 [...] She recently completed a half marathon in [facility], without any issues related to her shoulder [...] these instructions. Informed Consent Consent Obtained: Written Hayes Protocol A moment to CARE was completed. SIGN IN Personnel directly in (more content not included)...NormalWvumedicine Barnesville HospitalCNTHERAPYon 78-29-0569ADDQZZDHHUE/PT/Speech Visit (STEPHANEPTRM) SVETLANA CARVER ([id number]) 1960 F Date Time Provider Department 01/05/25 12:30 PM SELENE BUCKLEY Date Time Provider Department Center 01/05/2025 12:30 PM [id number] BUCKLEY Reason for Visit: PT Eval [747] [...] CAFFEINE ORAL Take 175 mg by mouth. Food Scientist: Addendum Therapy (PT/OT/Speech/Resp) ID: [id number] 01/05/2025 1:11 PM Author: SELENE BUCKLEY Signed by SELENE BUCKLEY PT on 01/05/2025 at 1:11 PM * * * This document replaces document [id number] * * * Document text: Program_ID:[id number] Access Code: [email or web address] URL: [email or web address]/ Date: 01-05-2025 Prepared By: Selene Buckley Program [...] Clinic ClevelandLarge Joint Arthro/Inj: R subacromial bursaon 87-47-6322VsddeGarrison akhtar PA-C 01/05/2025 11:54 AM Large Joint [...] these instructions. Informed Consent Consent Obtained: Written Hayes Protocol A moment to CARE was completed. [...] instruments, equipment, possible retained foreign bodies accounted for.[facility] Panel Informationon 69-54-7427EGVGJSJOVM: No acute bony abnormality. Mild right glenohumeral osteoarthritis. Airline Ticket Agent: MARKEL Transcribe Date/Time: Jan 05 2025 12:35P Dictated by : DONALD NUNEZ MD This examination was interpreted and the report reviewed and electronically signed by: DONALD NUNEZ MD on Jan 05 2025 12:42PM [facility] DIVISION OF RADIOLOGYRadiology Study observation (narrative)[facility] Panel InformationOrdered By: Ccf Provider on 27-68-4486Jamamwzqu ClinicTHERAPY NTon 47-48-0876DGQHZHI NTHNO ID: [id number] Author: SELENE BUCKLEY PT Service: Physical Therapy Author Type: Physical Therapist Type: Therapy (PT/OT/Speech/Resp) Filed: 01/05/2025 13:11 Note Text: Program_ID:[id number] Access Code: [email or web address] URL: [email or web address]/ Date: 01-05-2025 Prepared By: Selene Buckley Program [...] weekly - 1 sets - 10 repsNormal [facility]umed[facility] Barnesville HospitalXR SHLDR 4V AP/YOUNG/LAT/OUTLET LTon 68-56-5282RB SHLDR 4V AP/YOUNG/LAT/OUTLET LT* * *Final Report* * * DATE OF EXAM: Jan 05 2025 10:58AM LZX 5604 - XR SHLDR 4V AP/YOUNG/LAT/OUTLET LT / PROCEDURE REASON: multiple diagnoses * * * * Physician Interpretation * * * * EXAMINATION / TECHNIQUE: XR SHLDR 4V AP/YOUNG/LAT/OUTLET RT, XR SHLDR 4V AP/YOUNG/LAT/OUTLET LT HISTORY: chronic shoulder pain no injury limited rom (accession [id number]), chronic shoulder pain with limited rom no injury (accession [id number]) Pain of both shoulder joints Pain of both shoulder joints COMPARISON: None RESULT: No acute fracture or osseous malalignment is identified in either shoulder. Joint spaces are maintained on the left. Mild right glenohumeral osteoarthritis. IMPRESSION: No acute bony abnormality. Mild right glenohumeral osteoarthritis. Airline Ticket Agent: PSCDorothy Transcribe Date/Time: Jan 05 2025 12:35P Dictated by : DONALD NUNEZ MD This examination was interpreted and the report reviewed and electronically signed by: DONALD NUNEZ MD on Jan 05 2025 12:42PM EST [id number]_[id number] Barnesville HospitalXR SHLDR 4V AP/YOUNG/LAT/OUTLET RTon 61-28-9582VY SHLDR 4V AP/YOUNG/LAT/OUTLET RT* * *Final Report* * * DATE OF EXAM: Jan 05 2025 10:58AM LZX 5605 - XR SHLDR 4V AP/YOUNG/LAT/OUTLET RT / PROCEDURE REASON: multiple diagnoses * * * * Physician Interpretation * * * * EXAMINATION / TECHNIQUE: XR SHLDR 4V AP/YOUNG/LAT/OUTLET RT, XR SHLDR 4V AP/YOUNG/LAT/OUTLET LT HISTORY: chronic shoulder pain no injury limited rom (accession [id number]), chronic shoulder pain with limited rom no injury (accession [id number]) Pain of both shoulder joints Pain of both shoulder joints COMPARISON: None RESULT: No acute fracture or osseous malalignment is identified in either shoulder. Joint spaces are maintained on the left. Mild right glenohumeral osteoarthritis. IMPRESSION: No acute bony abnormality. Mild right glenohumeral osteoarthritis. Airline Ticket Agent: MARKEL Transcribe Date/Time: Jan 05 2025 12:35P Dictated by : DONALD NUNEZ MD This examination was interpreted and the report reviewed and electronically signed by: DONALD NUNEZ MD on Jan 05 2025 12:42PM EST [id number] Regional Medical Center Shoulder - left 4 Views on 01-05-2025* [...] shoulder pain no injury limited rom (accession [id number]), chronic shoulder pain with limited rom no injury (accession [id number]) Pain of both shoulder joints Pain of both shoulder joints COMPARISON: None RESULT: No acute fracture or osseous malalignment is identified in either shoulder. Joint spaces are maintained on the left. Mild right glenohumeral osteoarthritis. DIVISION OF RADIOLOGYProvider, [facility] - 01/05/2025 * * *Final Report* * * DATE OF EXAM: Jan 05 2025 10:58AM LZX 5604 - XR SHLDR 4V AP/YOUNG/LAT/OUTLET LT / PROCEDURE REASON: multiple diagnoses * * * * Physician Interpretation * * * * EXAMINATION / TECHNIQUE: XR SHLDR 4V AP/YOUNG/LAT/OUTLET RT, XR SHLDR 4V AP/YOUNG/LAT/OUTLET LT HISTORY: chronic shoulder pain no injury limited rom (accession [id number]), chronic shoulder pain with limited rom no injury (accession [id number]) Pain of both shoulder joints Pain of both shoulder joints COMPARISON: None RESULT: No acute fracture or osseous malalignment is identified in either shoulder. Joint spaces are maintained on the left. Mild right glenohumeral osteoarthritis. IMPRESSION IMPRESSION: No acute bony abnormality. Mild right glenohumeral osteoarthritis. Airline Ticket Agent: MARKEL Transcribe Date/Time: Jan 05 2025 12:35P Dictated by : DONALD NUNEZ MD This examination was interpreted and the report reviewed and electronically signed by: DONALD NUNEZ MD on Jan 05 2025 12:42PM EST [facility] - [facility] 4 Viewson 01-05-2025* * *Final Report* * * DATE OF EXAM: Jan 05 2025 10:58AM LZX 5605 - XR SHLDR 4V AP/YOUNG/LAT/OUTLET RT / PROCEDURE REASON: multiple diagnoses * * * * Physician Interpretation * * * * EXAMINATION / TECHNIQUE: XR SHLDR 4V AP/YOUNG/LAT/OUTLET RT, XR SHLDR 4V AP/YOUNG/LAT/OUTLET LT HISTORY: chronic shoulder pain no injury limited rom (accession [id number]), chronic shoulder pain with limited rom no injury (accession [id number]) Pain of both shoulder joints Pain of both shoulder joints COMPARISON: None RESULT: No acute fracture or osseous malalignment is identified in either shoulder. Joint spaces are maintained on the left. Mild right glenohumeral osteoarthritis. DIVISION OF RADIOLOGYProvider, [facility] - 01/05/2025 * * *Final Report* * * DATE OF EXAM: Jan 05 2025 10:58AM LZX 5605 - XR SHLDR 4V AP/YOUNG/LAT/OUTLET RT / PROCEDURE REASON: multiple diagnoses * * * * Physician Interpretation * * * * EXAMINATION / TECHNIQUE: XR SHLDR 4V AP/YOUNG/LAT/OUTLET RT, XR SHLDR 4V AP/YOUNG/LAT/OUTLET LT HISTORY: chronic shoulder pain no injury limited rom (accession [id number]), chronic shoulder pain with limited rom no injury (accession [id number]) Pain of both shoulder joints Pain of both shoulder joints COMPARISON: None RESULT: No acute fracture or osseous malalignment is identified in either shoulder. Joint spaces are maintained on the left. Mild right glenohumeral osteoarthritis. IMPRESSION IMPRESSION: No acute bony abnormality. Mild right glenohumeral osteoarthritis. Airline Ticket Agent: PSCB Transcribe Date/Time: Jan 05 2025 12:35P Dictated by : DONALD NUNEZ MD This examination was interpreted and the report reviewed and electronically signed by: DONALD NUNEZ MD on Jan 05 2025 12:42PM [facility] 62-78-2710MRUNLwdckd Visit (LOORRM) SVETLANA CARVER ([id number]) 1960 F Date Time Provider Department 12/15/24 [...] HISTORY OF PRESENT ILLNESS: PAIN EVALUATION 12/14/2024 3806 Pain Level: 7 Pain Location: Knee-Left Description: [...] prepare for an upcoming half marathon in [facility] on the or , with travel scheduled [...] these instructions. Informed Consent Consent Obtained: Written Hayes Protocol A moment to CARE was completed. [...] cortisone injection in N (more content not included)...NormalWvumedicine Barnesville Hospital Large Joint Arthro/Inj: L knee jointon 35-09-2470Xeshf, ALEX Ji 12/15/2024 10:38 AM Large Joint [...] these instructions. Informed Consent Consent Obtained: Written Hayes Protocol A moment to CARE was completed. [...] instruments, equipment, possible retained foreign bodies accounted for.[facility]uder HospitalCNOVon 99-87-6353XWSSHvfdzm Visit (LOORRM) SVETLANA CARVER ([id number]) 1960 F Date Time Provider Department 07/25/24 [...] knee joints Informed Consent Consent Obtained: Written Hayes Protocol A moment to CARE was completed. [...] both knees today Discusse (more content not included)...NormalWvumedicine Barnesville HospitalLarge Joint Arthro/Inj: bilateral knee jointson 22-84-4013YcmanGarrison akhtar PA-C 07/25/2024 2:21 PM Large Joint Arthro/Inj: bilateral knee joints Informed Consent Consent Obtained: Written Hayes Protocol A moment to CARE was completed. [...] and Plan of Care Visit completed when applicableMercy Health Perrysburg Hospital ClinicAlanine aminotransferase [Enzymatic activity/volume] in Serum or PlasmaOrdered By: Vlad Gallagher on 17-95-6790IKF [Catalytic activity/Vol]21 U/L7-52[facility] CenterAlbumin [Mass/volume] in Serum or Plasma by Bromocresol green (BCG) dye binding methoOrdered By: Vlad Gallagher on 17-51-0799Iuiuffj BCG dye [Mass/Vol]4.3 g/dL3.5-5.7FSelect Medical OhioHealth Rehabilitation HospitalAlkaline phosphatase [Enzymatic activity/volume] in Serum or PlasmaOrdered By: Vlad Gallagher on 76-60-2674KDQ [Catalytic activity/Vol]70 U/J63-758FtwjvnmroMercy Health Springfield Regional Medical CenterAspartate aminotransferase [Enzymatic activity/volume] in Serum or PlasmaOrdered By: Vlad Gallagher on 54-55-6729NPN [Catalytic activity/Vol]23 U/L 13-39[facility] Medical CenterBasophils Auto (Bld) [#/Vol]Ordered By: Vlad Gallagher on 81-41-2056Twtvlhtzj (Bld) [#/Vol]0.0 10*3/uL0.0-0.2FSelect Medical OhioHealth Rehabilitation HospitalBasophils/100 WBC Auto (Bld)Ordered By: Vlad Gallagher on 99-16-1602Oqaqbkgqk/100 WBC (Bld)0.8 %.[facility] Bilirubin.total [Mass/volume] in Serum or PlasmaOrdered By: Vlad Gallagher on 45-28-0283Xlbtafsye [Mass/Vol]0.3 mg/dL0.3-1.0[facility] CenterC reactive protein [Mass/volume] in Serum or PlasmaOrdered By: Vlad Gallagher on 03-22-4435FBM [Mass/Vol]< 0.5 mg/dL0.0-0.5FSelect Medical OhioHealth Rehabilitation Hospital Calcium [Mass/volume] in Serum or PlasmaOrdered By: Vlad Gallagher on 01-17-2024 Calcium [Mass/Vol]9.6 mg/dL8.6-10.3FSelect Medical OhioHealth Rehabilitation HospitalCarbon dioxide, total [Moles/volume] in Serum or PlasmaOrdered By: Vlad Gallagher on 95-52-9491BN3 [Moles/Vol]28.0 mmol/L21.0-31.0[facility] Chloride [Moles/volume] in Serum or PlasmaOrdered By: Vlad Gallagher on 21-74-2274Yztwaocg [Moles/Vol]105 mmol/S91-446TuldpwuseMercy Health Springfield Regional Medical Center Creatinine [Mass/volume] in Serum or PlasmaOrdered By: Vlad Gallagher on 03-43-8324Drdhgzubzy [Mass/Vol]0.87 mg/dL0.60-1.20[facility] Medical CenterEosinophils Auto (Bld) [#/Vol]Ordered By: Vlad Gallagher on 01-17-2024 Eosinophils (Bld) [#/Vol]0.2 10*3/uL0.0-0.45[facility] Eosinophils/100 WBC Auto (Bld)Ordered By: Vlad Gallagher on 01-17-2024 Eosinophils/100 WBC (Bld)2.7 %.[facility] Medical CenterErythrocyte distribution width Auto (RBC) [Ratio]Ordered By: Vlad Gallagher on 01-17-2024 Erythrocyte distribution width (RBC) [Ratio]14.5 %11.9-15.3FSelect Medical OhioHealth Rehabilitation HospitalErythrocyte sedimentation rate by Photometric methodOrdered By: Vlad Gallagher on 73-84-1019NTO Photometric method (Bld) [Velocity]44 mm/hr0-29 [facility] Medical CenterGlobulin Calc (S) [Mass/Vol]Ordered By: Vlad Gallagher on 79-60-7134Whioxhfh (S) [Mass/Vol]3.0 g/dLMercy Health Springfield Regional Medical CenterGlucose [Mass/volume] in Serum or PlasmaOrdered By: Vlad Gallagher on 28-71-2998Hcvndfx [Mass/Vol]86 mg/wS92-850EnypnhvkaMercy Health Springfield Regional Medical Center Comment on above:ADA recommended reference rangeRandom Glucose Reference Range is dependent on time and content of last meal. Glucose of more than 200 mg/dL in a nonstressed, ambulatory subject supports the diagnosisof Diabetes Mellitus. Hematocrit Auto (Bld) [Volume fraction]Ordered By: Vlad Gallagher on 01-17-2024 Hematocrit (Bld) [Volume fraction]41.6 %34.0-46.4FSelect Medical OhioHealth Rehabilitation HospitalHemoglobin [Mass/volume] in BloodOrdered By: Vlad Gallagher on 01-17-2024 Hemoglobin (Bld) [Mass/Vol]13.8 g/dL11.8-15.4FSelect Medical OhioHealth Rehabilitation Hospital Leukocytes [#/volume] corrected for nucleated erythrocytes in Blood by Automated counOrdered By: Vlad Gallagher on 39-96-8763PVQ corrected for nucl RBC Auto (Bld) [#/Vol]6.2 10*3/uL3.8-11.6FSelect Medical OhioHealth Rehabilitation HospitalLymphocytes Auto (Bld) [#/Vol]Ordered By: Vlad Gallagher on 88-31-1906Katjgzxjefy (Bld) [#/Vol]1.5 10*3/uL1.00-4.8[facility] Medical CenterLymphocytes/100 WBC Auto (Bld)Ordered By: Vlad Gallagher on 34-68-8517Ttubponpmcc/100 WBC (Bld)23.4 %.[facility] CenterMCH Auto (RBC) [Entitic mass]Ordered By: Vlad Gallagher on 19-47-5290OCR (RBC) [Entitic mass]31.1 pg24.7-34.3FSelect Medical OhioHealth Rehabilitation HospitalMCHC Auto (RBC) [Mass/Vol]Ordered By: Vlad Gallagher on 00-83-1672LDGK (RBC) [Mass/Vol]33.1 g/dL32.0-35.0[facility] CenterMCV Auto (RBC) [Entitic vol]Ordered By: Vlad Gallagher on 04-82-7194PDQ (RBC) [Entitic vol]93.9 xX13-802KovayzgewMercy Health Springfield Regional Medical CenterMagnesium [Mass/volume] in Serum or PlasmaOrdered By: Vlad Gallagher on 01-17-2024 Magnesium [Mass/Vol]2.1 mg/dL1.9-2.7FSelect Medical OhioHealth Rehabilitation HospitalMonocytes Auto (Bld) [#/Vol]Ordered By: Vlad Gallagher on 49-23-2736Npdzscqtc (Bld) [#/Vol]0.6 10*3/uL0.0-0.8[facility] CenterMonocytes/100 WBC Auto (Bld)Ordered By: Vlad Gallagher on 99-98-0443Iqpapwkzi/100 WBC (Bld)10.3 %. [facility] Medical CenterNeutrophils Auto (Bld) [#/Vol]Ordered By: Vlad Gallagher on 87-73-4150Dvywukocoae (Bld) [#/Vol]3.9 10*3/uL1.8-7.7FSelect Medical OhioHealth Rehabilitation HospitalNeutrophils/100 WBC Auto (Bld)Ordered By: Vlad Gallagher on 70-94-5304Avyypuwojjs/100 WBC (Bld)62.8 %.[facility] No Panel InformationOrdered By: Vlad Gallagher on 76-55-5287Zcvw-Nuclear Antibody Comment 2See comment.[facility] CenterComment on above: Pattern Potential Disease Association Homogeneous Systemic Lupus Erythematosus, Drug Induced Systemic Lupus Erythematosus, Chronic Autoimmune hepatitis, Juvenile Idiopathic Arthritis Speckled Sjogren Syndrome, Systemic Lupus Erythematosus, Subacute Cutaneous Lupus, Lupus, Congenital Heart Block, Mixed Connective Tissue Disease, Scleroderma-diffuse, Scleroderma- Autoimmune Myositis Overlap Syndrome, Systemic Lupus Geasspmqdavxx-Vclcrxzldfi-Ufkayhziks Myositis Overlap Syndrome, Systemic Autoimmune Rheumatic Disease, [...] Cytopenias, Linear Scleroderma, Antiphospholipid Syndrome Performed at: [facility] [place] [id number] Director: Haresh Obregon PhD, Phone: [phone] GFR (CKD-EPI)> 60.0 mL/MinMercy Health Springfield Regional Medical CenterPharmacy Creatinine Clearance (ChemN/AFSelect Medical OhioHealth Rehabilitation HospitalNucleated erythrocytes [Presence] in Blood by Automated count Ordered By: Vlad Gallagher on 01-51-8741Cvpnqblpu RBC Auto Ql (Bld)0.1 /100{WBC} 0-0.5FSelect Medical OhioHealth Rehabilitation HospitalParathyrin.intact [Mass/volume] in Serum or PlasmaOrdered By: Vlad Gallagher on 93-15-4756Ylsftprbvk.intact [Mass/Vol] 40.8 pg/jJ01-33UqnxwjqeoMercy Health Springfield Regional Medical CenterPhosphate [Mass/volume] in Serum or PlasmaOrdered By: Vald Gallagher on 23-23-5445Guvzoggin [Mass/Vol]2.6 mg/dL 2.5-4.5FSelect Medical OhioHealth Rehabilitation HospitalPlatelet mean volume Auto (Bld) [Entitic vol]Ordered By: Vlad Gallagher on 20-01-8784Lmieatvd mean volume (Bld) [Entitic vol]10.2 fL6.3-10.7FSelect Medical OhioHealth Rehabilitation HospitalPlatelets Auto (Bld) [#/Vol]Ordered By: Vlad Gallagher on 78-26-0570Mxndcaqfh (Bld) [#/Vol]238 10*3/kW819-838PjbfxzhbpMercy Health Springfield Regional Medical CenterPotassium [Moles/volume] in Serum or PlasmaOrdered By: Vlad Gallagher on 78-81-7220Ynieiaalp [Moles/Vol]4.2 mmol/L3.5-5.1FSelect Medical OhioHealth Rehabilitation HospitalProtein [Mass/volume] in Serum or PlasmaOrdered By: Vlad Gallagher on 27-78-9180Obhobhl [Mass/Vol]7.3 g/dL6.4-8.9 [facility] Medical CenterRBC Auto (Bld) [#/Vol]Ordered By: Vlad Gallagher on 30-64-1426BMM (Bld) [#/Vol]4.43 10*6/uL3.60-5.00[facility] Southerum nuclear antibody titerOrdered By: Vlad Gallagher on 25-89-9007Ikegjrk Ab (S) [Titer]Positive.[facility] Comment on above:Negative <1:80 Borderline 1:80 Positive >1:80Serum or plasma albumin/globulin mass ratioOrdered By: Vlad Gallagher on 01-17-2024 Albumin/Globulin [Mass ratio]1.4 {ratio}[facility] Southerum or plasma anion gap determinationOrdered By: Vlad Gallagher on 12-87-1540Ghuwx gap [Moles/Vol]8.2 mmol/L6.0-15.0[facility] Southerum speckled pattern antinuclear antibody (ESTUARDO) titerOrdered By: Vlad Gallagher on 47-55-1814Tbffzqsg nuclear Ab pattern (S) [Titer]1:160.[facility] CenterComment on above:ICAP nomenclature: AC-2,4,5,29Sodium [Moles/volume] in Serum or PlasmaOrdered By: Vlad Gallagher on 21-68-6631Wgisky [Moles/Vol]137 mmol/G218-573CeksmjjipMercy Health Springfield Regional Medical CenterThyrotropin [Units/volume] in Serum or PlasmaOrdered By: Vlad Reganmagnolia on 85-11-4385HBL Qn 3.40 m[IU]/L0.45-5.33[facility] Medical CenterUrea nitrogen [Mass/volume] in Serum or PlasmaOrdered By: Vlad Reganmagnolia on 32-01-6059Vhoc nitrogen [Mass/Vol]24 mg/dL7-25[facility] Medical CenterWBC Auto (Bld) [#/Vol]Ordered By: Vlad Reganmagnolia on 57-81-8692TFP (Bld) [#/Vol]6.2 10*3/uL 3.8-11.6FSelect Medical OhioHealth Rehabilitation HospitalXR Knee - left 4 Viewson 10-29-2023 IMPRESSION: 1. Degenerative arthrosis of both knees, LEFT greater than RIGHT. Airline Ticket Agent: MARKEL Transcribe Date/Time: Oct 29 2023 12:25P Dictated by : DARLENE SPRINGER MD This examination was interpreted and the report reviewed and electronically signed by: DARLENE SPRINGER MD on Oct 29 2023 12:27PM [facility] DIVISION OF RADIOLOGY* * *Final Report* * [...] demonstrated on the RIGHT. DIVISION OF RADIOLOGYProvider, [facility] - 10/29/2023 * * *Final Report* * [...] of both knees, LEFT greater than RIGHT. Airline Ticket Agent: MARKEL Transcribe Date/Time: Oct 29 2023 12:25P Dictated by : DARLENE SPRINGER MD This examination was interpreted and the report reviewed and electronically signed by: DARLENE SPRINGER MD on Oct 29 2023 12:27PM EST [facility] HealthRadiology Study observation (narrative)[facility] HospitalXR Knee - left 4 ViewsOrdered By: Ccf Provider on 19-23-4975Zruryteos ClinicPT INTACTon 19-78-4695BCW, Mzjmou99 pg/nNKjzcam09-46Ppu [facility] Comment on above:Performed By: #### PTHINT #### [facility] Laboratory [address] [address] [address] Noris DuenasMAGNESIUMon 35-81-6804Cfrewmvwe [Mass/Vol]2.0 mg/dLNormal1.8-2.4 The [facility] CenterComment on above:Performed By: #### PHOS, MG, BMP ####[facility] [address] [address]. Noris DuenasPHOSPHORUSon 19-16-0528Pvreuiudp [Mass/Vol]3.5 mg/dLNormal2.6-4.7The [facility] CenterComment on above:Performed By: #### PHOS, MG, BMP ####[facility] [address] [address]DrLucila DuenasPROF CHEM 8 (BAS METB)on 92-14-4922Pcasu gap [Moles/Vol]12.0 mmol/LNormalThe [facility] CenterComment on above:Performed By: #### PHOS, MG, BMP #### [facility] Laboratory [address] [place] [address] Dr. Noris DuenasCalcium [Mass/Vol]9.4 mg/dLNormal8.5-10.1The [facility] Comment on above:Performed By: #### PHOS, MG, BMP #### [facility] [address] [place] [address] Dr. Noris DuenasChloride [Moles/Vol]103 mmol/UHsdyqp83-827KypMetrohealth Parma [facility] Center Comment on above:Performed By: #### PHOS, MG, BMP #### [facility] [address] [place] [address] Dr. Noris DuenasCO2 [Moles/Vol]29.0 mmol/OBpaefo66.0-32.0The [facility] Comment on above:Performed By: #### PHOS, MG, BMP #### [facility] [address] [place] [address] Dr. Noris DuenasCreatinine [Mass/Vol]0.70 mg/dLNormal0.55-1.02The [facility] CenterComment on above:Performed By: #### PHOS, MG, BMP #### [facility] [address] [place] [address] Dr. Noris HaskinsGFR-AF CHILEAN>60Normal>=60The [facility] CenterComment on above:Performed By: #### PHOS, MG, BMP #### [facility] [address] [place] [address] Dr. Noris HaskinsGFR-NON AF CHILEAN>60Normal>=60The [facility] CenterComment on above:Performed By: #### PHOS, MG, BMP #### [facility] [address] [place] [address] Dr. Noris DuenasGlucose [Mass/Vol]95 mg/kHGrvcoy04-431Aob [facility] Comment on above:Performed By: #### PHOS, MG, BMP #### [facility] [address] [place] [address] Dr. Noris DuenasPotassium [Moles/Vol]4.0 mmol/LNormal3.5-5.1[facility] Comment on above:Performed By: #### PHOS, MG, BMP #### [facility] [address] [place] [address] Dr. Noris DuenasSodium [Moles/Vol]140 mmol/EOblnug193-468Pte [facility] Comment on above:Performed By: #### PHOS, MG, BMP #### [facility] Laboratory [address] [place] [address] Dr. Noris DuenasUrea nitrogen [Mass/Vol]17.0 mg/dLNormal7.0-18.0[facility] Medical CenterComment on above:Performed By: #### PHOS, MG, BMP #### [facility] [address] [place] [address] Dr. Noris Kurtz nitrogen/Creatinine [Mass ratio]24.3 mg/mgNoParkview HealthComment on above:Performed By: #### PHOS, MG, BMP #### [facility] [address] [place] [address] Dr. Noris DuenasVITAMIN D 25 OHon 09-29-6251NHC D 25-OH76.9 ng/mLNormalMetrohealth Parma Medical CenterComment on above:Performed By: #### VITAD #### [facility] [address] [place] [address] Dr. Noris Brock RANGESSEE BELOWMercy Health St. Vincent Medical CenterComment on above: Result Comment: <20 ng/mL Vit D deficient 20 - <30 ng/mL Vit D insufficient 30 - 100 ng/mL Vit D sufficient >100 ng/mL Potential ToxicityPerformed By: #### VITAD #### [facility] [address] [place] [address] Dr. Noris Hogue KNEE GENERAL 4V AP BOTH/PA BOTH/LAT/MERC LEFTon 06-09-2022 [facility]XR K[facility] - left 4 Viewson [id number]: Left knee osteoarthritis as described. Airline Ticket Agent: MARKEL Transcribe Date/Time: Jun 09 2022 1:58P Dictated by : HEBER CAMACHO MD This examination was interpreted and the report reviewed and electronically signed by: HEBER CAMACHO MD on Jun 09 2022 1:58PM [facility] DIVISION OF RADIOLOGY* * *Final Report* * [...] No other significant abnormality. DIVISION OF RADIOLOGYProvider, [facility] - [facility] * * *Final Report* * [...] IMPRESSION IMPRESSION: Left knee osteoarthritis as described. Airline Ticket Agent: MARKEL Transcribe Date/Time: Jun 09 2022 1:58P Dictated by : HEBER CAMACHO MD This examination was interpreted and the report reviewed and electronically signed by: HEBER CAMACHO MD on Jun 09 2022 1:58PM EST [facility] HealthRadiology Study observation (narrative)[facility]roOhioHealth [facility] Wert HospitalXR Knee - left 4 ViewsOrdered By: Ccf Provider on 94-30-7246Rqfikqtsa ClinicCBC AUTO DIFF on 65-66-5249TZVE #0.0 103/ulNormal0.0-0.1The [facility] CenterComment on above: Performed By: #### CBC #### [facility] [address] [address] [address] Noris DuenasBasophils/100 WBC (Bld)0.8 %Normal0.2-2.0The [facility] Comment on above:Performed By: #### CBC #### [facility] [address] [address] [address] Noris Chavez #0.2 103/ulNormal0.0-0.7The [facility] CenterComment on above: Performed By: #### CBC #### [facility] [address] [address] [address] Noris Haskinsosinophils/100 WBC (Bld)3.8 %Normal0.9-7.0The [facility] Comment on above:Performed By: #### CBC #### [facility] [address] [place] [address] Dr. Noris Haskinsrythrocyte distribution width (RBC) [Ratio]13.2 %Bvhjpe18.0-15.0 The [facility] CenterComment on above:Performed By: #### CBC #### [facility] [address] [address] [address] Noris DuenasHematocrit (Bld) [Volume fraction]41.2 %Cnbfqc95.0-48.0The [facility] CenterComment on above:Performed By: #### CBC #### [facility] [address] [place] [address] Dr. Noris DuenasHemoglobin (Bld) [Mass/Vol]13.2 g/qJHzzzcq48.0-16.0The [facility] CenterComment on above:Performed By: #### CBC #### [facility] [address] [place] [address] Dr. Noris Wright #0.01 10e3/ulNormal0.00-0.03The [facility] on above:Performed By: #### CBC #### [facility] [address] [place] [address] Dr. Noris Wright %0.2 %Normal0.0-0.5The [facility] CenterComment on above: Performed By: #### CBC #### [facility] [address] [place] [address] Dr. Noris Taylor #1.7 103/ulNormal1.2-3.8The [facility] CenterComment on above:Performed By: #### CBC #### [facility] [address] [place] [address] Dr. Noris Madrigalhocytes/100 WBC (Bld)35.0 %Zslbfu30.5-60.0The [facility] on above:Performed By: #### CBC #### [facility] [address] [place] [address] Dr. Noris CandelariaUAL DIFF REQNONormalThe [facility] CenterComselect specialty hospital-flint on above: Performed By: #### CBC #### [facility] [address] [place] [address] Dr. Noris Rizzo (RBC) [Entitic mass]30.3 hxQgknwz38.7-34.0The [facility] on above:Performed By: #### CBC #### [facility] [address] [place] [address] Dr. Noris Rizzo (RBC) [Mass/Vol]32.0 g/oETtihqb06.9-35.2The [facility] CenterComselect specialty hospital-flint on above:Performed By: #### CBC #### [facility] [address] [place] [address] Dr. Noris Rizzo (RBC) [Entitic vol]94.5 rRIenijz57.0-99.0The [facility] CenterComment on above:Performed By: #### CBC #### [facility] [address] [address] [address] Noris Dugan #0.6 103/ulNormal0.3-0.8The [facility] CenterComment on above:Performed By: #### CBC #### [facility] [address] [place] [address] Dr. Noris DuenasMonocytes/100 WBC (Bld)13.4 %Critically high1.7-12.0The [facility] CenterComment on above:Performed By: #### CBC #### [facility] [address] [place] [address] Dr. Noris Chavira #2.2 103/ulNormal1.4-6.5The [facility] CenterComment on above:Performed By: #### CBC #### [facility] [address] [place] [address] Dr. Noris Lynnutrophils/100 WBC (Bld)46.8 %Fuckci22.0-75.0The [facility] CenterComment on above:Performed By: #### CBC #### [facility] [address] [place] [address] Dr. Noris Acevedo mean volume (Bld) [Entitic vol]10.7 fLNormal9.5-13.5The [facility] CenterComselect specialty hospital-flint on above:Performed By: #### CBC #### [facility] [address] [place] [address] Dr. Noris DuenasPLT237 103/htOlrbeh713-588Ghe [facility] CenterComment on above: Performed By: #### CBC #### [facility] [address] [place] [address] Dr. Noris DuenasRBC4.36 106/ulNormal4.20-5.40The [facility] on above:Performed By: #### CBC #### [facility] [address] [place] [address] Dr. Noris DuenasWBC4.8 103/ulNormal4.0-11.0The [facility] CenterComment on above: Performed By: #### CBC #### [facility] [address] [address] [address] Noris Horton 41-31-6221XDU [Mass/Vol]mg/LNormal<=1.0The [facility] CenterComment on above:Performed By: #### CMP, LIPID, CRP #### [facility] [address] [address] [address] Noris RiberaID PROFILEon 09-54-7246QCKV-HDL RATIO NORMSEE BELOWNoParkview HealthComment on above:Result Comment: 3.3 - 4.4 LOW RISK 4.4 - 7.1 AVERAGE RISK 7.1 - 11.0 MODERATE RISK >11.0 HIGH RISKPerformed By: #### CMP, LIPID, CRP #### [facility] [address] [place] [address] Dr. Noris DuenasCholesterol [Mass/Vol]193 mg/dLNormal<=200The [facility] Comment on above:Performed By: #### CMP, LIPID, CRP #### [facility] [address] [address] [address] Noris Andradeesterol in HDL [Mass/Vol]56 mg/zPNsgpam46-96Vew [facility] CenterComment on above:Performed By: #### CMP, LIPID, CRP #### [facility] [address] [address] [address] Noris DuenasCholesterol in LDL [Mass/Vol]105.6 mg/dLMercy Health St. Vincent Medical CenterComment on above:Performed By: #### CMP, LIPID, CRP #### [facility] [address] [address] [address] Noris Andradeesterkobe.total/Cholesterol in HDL [Mass ratio]3.4 {ratio} NormalThe [facility] CenterComment on above:Performed By: #### CMP, LIPID, CRP #### [facility] [address] [place] [address] Dr. Noris DuenasHDHugh NORMAL> or = 60 mg/dl - LOW CARDIOVASCULAR RISK <40 mg/dl - HIGH CARDIOVASCULAR RISKMercy Health St. Vincent Medical CenterComment on above:Performed By: #### CMP, LIPID, CRP #### [facility] [address] [address] [address] Noris DuenasLDL CALC NORMALSEE BELOWMercy Health St. Vincent Medical CenterComment on above:Result Comment: <100 mg/dl OPTIMAL 100 - 129 mg/dl NEAR OR ABOVE OPTIMAL 130 - 159 mg/dl BORDERLINE HIGH 160 - 189 mg/dl HIGH >190 mg/dl VERY HIGH Performed By: #### CMP, LIPID, CRP #### [facility] [address] [address] [address] Noris DuenasTriglyceride [Mass/Vol]157 mg/dLCritically high<=150The [facility] on above:Performed By: #### CMP, LIPID, CRP #### [facility] [address] [place] [address] Dr. Noris DuenasVLDL CALC31.4 mg/dLNoParkview HealthComment on above: Performed By: #### CMP, LIPID, CRP #### [facility] [address] [place] [address] Dr. Noris DuenasPROF 14(COMP METB)on 63-14-4450Trjawrw [Mass/Vol]3.7 g/dLNormal 3.4-5.0The [facility] on above:Performed By: #### CMP, LIPID, CRP #### [facility] [address] [place] [address] Dr. Noris DuenasAlbumin/Globulin [Mass ratio]1.0 {ratio}NormalThe [facility] on above:Performed By: #### CMP, LIPID, CRP #### [facility] [address] [place] [address] Dr. Noris SinclairP [Catalytic activity/Vol]60 U/FOrpzkw78-799Nek [facility] on above:Performed By: #### CMP, LIPID, CRP #### [facility] [address] [place] [address] Dr. Noris SinclairT [Catalytic activity/Vol]30 U/RLwvstg87-69Ahs [facility] on above:Performed By: #### CMP, LIPID, CRP #### [facility] [address] [address] [address] Noris DuenasAnion gap [Moles/Vol]10.4 mmol/LNormalMetrohealth Parma Medical Center Comment on above:Performed By: #### CMP, LIPID, CRP #### [facility] [address] [address] [address] Noris DuenasAST [Catalytic activity/Vol]23 U/RSyqlxo25-95Neo [facility] CenterComment on above:Performed By: #### CMP, LIPID, CRP #### [facility] [address] [address] [address] Noris DuenasBilirubin [Mass/Vol]0.3 mg/dLNormal0.2-1.0The [facility] Comment on above:Performed By: #### CMP, LIPID, CRP #### [facility] [address] [address] [address] Noris DuenasCalcium [Mass/Vol]9.4 mg/dLNormal8.5-10.1[facility] Comment on above:Performed By: #### CMP, LIPID, CRP #### [facility] [address] [address] [address] Noris DuenasChloride [Moles/Vol]103 mmol/KTfhful99-823Hqo [facility] Comment on above:Performed By: #### CMP, LIPID, CRP #### [facility] [address] [address] [address] Noris DuenasCO2 [Moles/Vol]27.7 mmol/JJwwekg02.0-32.0The [facility] Comment on above:Performed By: #### CMP, LIPID, CRP #### [facility] [address] [address] [address] Noris DuenasCreatinine [Mass/Vol]0.91 mg/dLNormal0.55-1.02The [facility] CenterComment on above:Performed By: #### CMP, LIPID, CRP #### [facility] [address] [address] [address] Hamm ChangEGFR-AF CHILEAN>60Normal>=60The [facility] CenterComment on above:Performed By: #### CMP, LIPID, CRP #### [facility] [address] [place] [address] Dr. Noris Rodríguez-NON AF CHILEAN>60Normal>=60The [facility] CenterComment on above:Performed By: #### CMP, LIPID, CRP #### [facility] [address] [address] [address] Noris DuenasGlobulin (S) [Mass/Vol]3.7 g/dLNormalThe [facility] CenterComment on above:Performed By: #### CMP, LIPID, CRP #### [facility] [address] [place] [address] Dr. Noris DuenasGlucose [Mass/Vol]101 mg/jLUwwdet75-883JcsMetrohealth Parma Medical Center Comment on above:Performed By: #### CMP, LIPID, CRP #### [facility] [address] [place] [address] Dr. Noris DuenasPotassium [Moles/Vol]4.1 mmol/LNormal3.5-5.1[facility] Comment on above:Performed By: #### CMP, LIPID, CRP #### [facility] [address] [place] [address] Dr. Noris DuenasProtein [Mass/Vol]7.4 g/dLNormal6.4-8.2[facility] Comment on above:Performed By: #### CMP, LIPID, CRP #### [facility] [address] [place] [address] Dr. Noris DuenasSodium [Moles/Vol]137 mmol/WWygbsr385-810LlmMetrohealth [facility] Medical Center Comment on above:Performed By: #### CMP, LIPID, CRP #### [facility] [address] [place] [address] Dr. Noris DuenasUrea nitrogen [Mass/Vol]19.0 mg/dLCritically high7.0-18.0The [facility] CenterComment on above:Performed By: #### CMP, LIPID, CRP #### [facility] [address] [place] [address] Dr. Noris DuenasUrea nitrogen/Creatinine [Mass ratio]20.9 mg/mgNormalThe [facility] CenterComment on above:Performed By: #### CMP, LIPID, CRP #### [facility] [address] [id number] Noris DuenasSED RATE WESTERGRENon 06-70-1825KIU RATE32 mm/hrCritically high <=30The [facility] CenterComment on above:Performed By: #### SEDR ####[facility] [address] [address]. Noris Duenas Covid-19 PCR (CVDTBH)on 42-03-0045LZVB-CoV-2 (COVID-19) RNA EUSEBIO+probe Ql (Unsp spec)Not detectedNormalNOT DETECTEDThe [facility] CenterComselect specialty hospital-flint on above:Result Comment: This test is not yet approved or cleared by the [place] FDA. When there are no FDA-approved or cleared tests available, and other criteria are met, FDA can make tests available under an emergency access mechanism called an Emergency Use Authorization (EUA). The EUA for this test is supported by the [place] of Health and Human Service's (HHS's) declaration [...] [facility] [address] [address] [address] Noris DuenasXR Knee - left 4 Viewson 60-53-2836YHBACSDGYZ: Moderate osteoarthritis left knee similar to 2019. Airline Ticket Agent: MARKEL Transcribe Date/Time: Jan 21 2021 1:23P Dictated by : SILVIO JAMES, DO This examination was interpreted and the report reviewed and electronically signed by: ALEX ZAMUDIO MD on Jan 21 2021 2:17PM [facility] DIVISION OF RADIOLOGY* * *Final Report* * [...] with mild-moderate degenerative changes. DIVISION OF RADIOLOGYProvider, [facility] - 01/21/2021 * * *Final Report* * [...] Moderate osteoarthritis left knee similar to 2019. Airline Ticket Agent: MARKEL Transcribe Date/Time: Jan 21 2021 1:23P Dictated by : SILVIO JAMES DO This examination was interpreted and the report reviewed and electronically signed by: ALEX ZAMUDIO MD on Jan 21 2021 2:17PM EST [facility] HealthRadiology Study observation (narrative)[facility]XR Knee - left 4 ViewsOrdered By: Ccf Provider on 31-12-0492Boznzkgut ClinicNo Panel InformationUc Health Vital Signs Date TimeVital SignValuePerforming AecbvkrvkMyvkamvi87-00-2236 08:56-0400Body ravsxy836.02 cmBenjamin Ball DO Work Phone: [phone]10-02-2025 08:56-0400 Body mass index (BMI) [Ratio]24.5 kg/r5Amdkuhah Ball DO Work Phone: [phone])[address] [place], [place] 5064410-02-2025 08:56-0400 Body jyohzg45.7 kgBenjamin Ball DO Work Phone: [phone] [place], [place] 5064410-02-2025 08:56-0400 Diastolic blood sglocxwt45 mm[Hg]Piyush Ball DO Work Phone: [phone] [place], [place] 5064410-02-2025 08:56-0400 Heart rate75 /minBenjamin Ball DO Work Phone: [phone] [place], [place] 5064410-02-2025 08:56-0400 Respiratory rate12 /minBenjamin Ball DO Work Phone: [phone] [place], [place] 5064410-02-2025 08:56-0400 Systolic blood tdmjuecv855 mm[Hg]Piyush Ball DO Work Phone: [phone] [place], [place] 5064409-16-2025 11:44-0400 Body xzuuxp136.02 cmSussy Johnson MD Work Phone: [phone] [place], [place] 5064409-16-2025 11:44-0400 Body mass index (BMI) [Ratio]24 kg/s9KbcmavSussy Johnson MD Work Phone: [phone] [place], [place] 5064409-16-2025 11:44-0400 Body azzbaw55.4 kgSussy Johnson MD Work Phone: [phone]09-16-2025 11:44-0400 Diastolic blood lqdqsoyn49 mm[Hg]Sussy Johnson MD Work Phone: [phone] [place], [place] 5064409-16-2025 11:44-0400 Heart rate72 /Tara Johnson MD Work Phone: [phone])[address] [place], [place] 5064409-16-2025 11:44-0400 Respiratory rate12 /Tara Johnson MD Work Phone: [phone]09-16-2025 11:44-0400 Systolic blood cciqbgea534 mm[Hg]Sussy Johnson MD Work Phone: [phone])[address] [place], [place] 5064409-05-2025 09:32-0400 Body oxvymx968.02 cmSussy Johnson MD Work Phone: [phone] [place], [place] 5064409-05-2025 09:32-0400 Body mass index (BMI) [Ratio]24.3 kg/q1VmjqjnSussy Johnson MD Work Phone: [phone])[address] [place], [place] 5064409-05-2025 09:32-0400 Body lrirxc21.14 kgSussy Johnson MD Work Phone: [phone])[address] [place], [place] 5064409-05-2025 09:32-0400 Diastolic blood emqqpwum66 mm[Hg]Sussy Johnson MD Work Phone: 1(288)[address] [place], [place] 5064409-05-2025 09:32-0400 Heart rate64 /Tara Johnson MD Work Phone: [phone]09-05-2025 09:32-0400 Respiratory rate12 /Tara Johnson MD Work Phone: 1([phone])[address] [place], [place] 5064409-05-2025 09:32-0400 Systolic blood xpmdqcsy020 mm[Hg]Sussy Johnson MD Work Phone: [phone])[address] [place], [place] 5064409-16-2024 13:39-0400 Body qhwhik716.02 cmMD Sussy Johnson Work Phone: [facility]09-16-2024 13:39-0400 Body mass index (BMI) [Ratio]24.4 kg/m2MD Sussy Johnson Work Phone: [facility]09-16-2024 13:39-0400 Body .59 kgMD Sussy Johnson Work Phone: [facility]09-16-2024 13:39-0400 Diastolic blood ygfedkwv58 mm[Hg]MD Sussy Johnson Work Phone: [facility]09-16-2024 13:39-0400 Heart rate61 /minMD Sussy Johnson Work Phone: [facility]09-16-2024 13:39-0400 Respiratory rate12 /minMD Sussy Johnson Work Phone: [phone]09-16-2024 13:39-0400 Systolic blood eihjdydz984 mm[Hg]MD Sussy Johnson Work Phone: [facility]11-28-2023 09:30-0500 Body jbliie023.02 cmSussy Johnson Other [employer] Other [id number] 09:30-0500Body mass index (BMI) [Ratio] 23.95 kg/s8FrxsvgSussy Johnson Other [employer] Other 11-28-2023 09:30-0500Body czdyzm48.33 kgSussy Johnson Other Yo[facility] Other 11-28-2023 09:30-0500Diastolic blood luhscuvo59 mm[Hg] Sussy Johnson Other [facility] Other 11-28-2023 09:30-0500Systolic blood hjjlezys701 mm[Hg] Sussy Johnson Other [facility] Other Encounters Encounter DateEncounter TypeCare ProviderFacilityStart: 07-02-2025 End: 05-30-8154Tfrsnp Nancy Roberto DeleonLiz PT Work Phone: noms Pur[facility]ontStart: 07-02-2025 End: 28-36-7699Slpywk Nancy Mejia Liz PT Work Phone: NOFY [facility] CentertStart: 07-02-2025 End: 36-65-3289bwichkwnpfUrri J Liz PT Work Phone: noms [facility] FremontComment on above:Chronic left-sided low back pain without sciatica (Primary Dx); Primary osteoarthritis of left hipStart: 06-22-2025 End: 61-98-1585jxxvcmqnmqRTFUMEGKK CLAPPFacility:[facility]tart: 06-19-2025 End: 93-26-3807csikawdeiyUYBAKBPTV CLAPPFacility:[facility] Hospitaltart: 05-31-2025 End: 45-77-6430lufqbgtahyCbatelwk Hao DO Work Phone: [facility] Work Phone: Start: 05-31-2025 End: 03-76-9848Qlnohgp encounter procedureBeprema Hao DO-[facility] Work Phone: Start: 05-15-2025 End: 24-12-3945brbldifaotHoeqky E Braun MD Work Phone: [facility] Work Phone: Start: 05-15-2025 End: 38-91-0906Jvpyxfj encounter procedureBenabhilash Hao DO-[facility] Work Phone: Start: 05-15-2025 End: 13-01-9808Pmyfcuz encounter statusBeprema Bui [facility] Hospitaltart: 48-75-0366Nzw-patient / Non-visitBenjadebi Bui DO-[facility] Work Phone: Start: 05-04-2025 End: 89-79-3771eikzyzkcnzRspmde E Braun MD Work Phone: [facility] Work Phone: Start: 05-04-2025 End: 63-00-0754Cbvffzd encounter procedureBeedisondebi Bui DO-[facility] Work Phone: Start: 02-21-2025 End: 16-89-8270Usskyye encounter procedureMartine Cade [facility] Work Phone: Start: 02-21-2025 End: 41-18-3725tkzlkygmdwRedsom E Braun MD Work Phone: [facility] Work Phone: Start: 02-13-2025 End: 22-96-3530ufrnqpseqeXdoykxy Troyer PT Work Phone: [facility] TherapyComment on above:Pain in joint of right shoulder (Primary Dx)Start: 01-24-2025 End: 34-10-0891zjbzknfvclTyobzhh Troyer PT Work Phone: [facility] TherapyComment on above:Pain in joint of right shoulder (Primary Dx)Start: 01-05-2025 End: 25-66-5442Uqvxgwi encounter procedureTrgurwinder Ford RT(R)RadiologyComment on above:Primary osteoarthritis of right shoulder (Primary Dx); Tendinopathy of right rotator cuff; Cervicalgia; Impingement syndrome of left shoulderStart: 01-05-2025 End: 85-57-4125usenxplmqfBirrcq A Radman RT(R)RadiologyComment on above: Radiology XRPain in joint of right shoulder (Primary Dx); Primary osteoarthritis of right shoulder; Tendinopathy of right rotator cuff; Cervicalgia; Impingement syndrome of left shoulderStart: 01-05-2025 End: 18-09-0596Ilcqzoeivf hospital visit by physicianMaryjo Cole 1 Work Phone: RadiologyComment on above:Pain of both shoulder joints [M25.511, M25.512]Start: 12-15-2024 End: 88-03-2642Lsjfjgc encounter procedureGarrison Lee PA-C Work Phone: OrthopaedicsComment on above:Primary osteoarthritis of left knee (Primary Dx); Primary osteoarthritis of right kneeStart: 12-15-2024 End: 98-77-6022jxrjgksqxyWLDGJPVGJ CLAPPFacility:[facility] Hospitaltart: 07-25-2024 End: 57-62-4062grelwfjvcdJADCSKOEC CLAPPFacility:[facility] Hospitaltart: 07-25-2024 End: 94-58-4840Dmedbfa encounter procedureNatfarrukh MINA-C Work Phone: OrthopaedicsComment on above:Primary osteoarthritis of left knee (Primary Dx); Primary osteoarthritis of right kneeStart: 05-15-2024 End: 31-71-9675enqfroikesZF Marcia E Braun Work Phone: [facility] Work Phone: Start: 05-15-2024 End: 16-91-6361Ktjkbvtha for general adult medical examination without abnormal findingsMD Sussy Johnson Work Phone: [facility]: 05-15-2024 End: 32-38-1060Fmwjcwl encounter procedureMD Sussy Johnson Work Phone: [facility] Work Phone: Start: 24-55-8130Yrshtkw encounter statusMD Sussy Johnson Work Phone: [facility]art: 02-15-2024 End: 93-98-6820riemqmijdiEM Marcia E Braun Work Phone: [facility] Work Phone: Start: 02-15-2024 End: 70-52-3608Qxibdmo encounter procedureMD Sussy Johnson Work Phone: [facility] Work Phone: Start: 86-39-4928Myk-patient / Non-visitMD Sussy Johnson Work Phone: [facility] Work Phone: Start: 01-17-2024 End: 61-88-6520idfkzfhfarQN Sussy Johnson Work Phone: [facility] Work Phone: Start: 01-17-2024 End: 46-29-4996Sqwwhva encounter procedureMD Sussy Johnson Work Phone: [facility] Work Phone: Start: 85-32-2498sgsrqgahtdNbzeru A Radman RT(R) RadiologyComment on above:Radiology XRStart: 10-29-2023 End: 09-08-4088Ulsuhfa encounter procedureTrgurwinder Ford RT(R)[facility] Comment on above:Primary osteoarthritis of left knee (Primary Dx); It band syndrome, leftStart: 10-29-2023 End: 18-75-5090Xtxfrzvzfr hospital visit by physicianMaryjo Cole 1 Work Phone: RadiologyComment on above:Primary osteoarthritis of left knee [M17.12]Start: 08-04-2023 End: 73-08-6718ikumkxrxgcLimigx Braun Other Yoovi Other Start: 42-93-3027Fpruszjnh encounterMarfredis [facility]: 07-27-2023 End: 97-18-3196fbgdowcmkwPolypo Braun Other Yo[facility] Other Start: 22-87-3223Bmwgapolb for general adult medical examination without abnormal findingsMarcia [facility] Hospitaltart: 74-33-7635Wrzclmgx preventive med est patient 40-64yrsMarcia [facility] Hospitaltart: 03-03-2023 End: 69-72-0627Kxchnzy encounter procedureNatfarrukh Rosa PA-C Work Phone: OrthopaedicsComment on above:Primary osteoarthritis of left knee (Primary Dx)Start: 69-68-9457iuplfvgerbIKYHHZJU CULLENFacility:H1 Start: 12-02-2022 End: 85-33-1715oelakiixrbMG DONALD ESPINOZARONNIELizzieFacility:Z5Lktpm: 06-09-2022 End: 41-39-8342Mfmhdhf encounter procedureNathaniel Rosa PA-C Work Phone: OrthopaedicsComment on above:Primary osteoarthritis of left knee (Primary Dx)Start: 06-09-2022 End: 69-44-4239Qtpqhnjjel hospital visit by physicianMaryjo Cole 1 Work Phone: RadiologyComment on above:Primary osteoarthritis of left knee [M17.12]Start: 06-02-2022 End: 72-26-8872nvpayhcqsbYQLUXSJJ CULLENFacility:H4Nxlgm: 45-26-4035Juajpiqmv for general adult medical examination without abnormal findingsDR SUSSY JOHNSON [facility] HospitalStart: 05-18-2022 End: 25-11-7510ufpgayyxvwWY SUSSY JOHNSONFacility:Z8Zkcmz: 05-18-2022 End: 45-79-3628Cjgvscpol for general adult medical examination without abnormal findingsDR SUSSY JOHNSONFacility:G4Jsqza: 02-07-2022 End: 69-04-0613dqzsixslfkKO SUSSY JOHNSONFacility:G4Ldtfu: 12-01-2021 End: 07-67-4319Nxcaurb encounter procedureNatfarrukh Lee PA-C Work Phone: OrthopaedicsComment on above:Primary osteoarthritis of left knee (Primary Dx)Start: 01-21-2021 End: 90-74-9969Gvitmtudge hospital visit by physicianMaryjo Cole 1 Work Phone: RadiologyComment on above:Primary osteoarthritis of left knee [M17.12] Procedures DateProcedureProcedure DetailPerforming ClinicianStart: 99-78-1344Zaiuuaanudpwml aspir&/inj major jt/bursa w/o usNathaniel Rosa PA-C Work Phone: Start: 84-18-9892Ngyvb shoulder complete minimum 2 viewsNathaniel Rosa PA-C Work Phone: Start: 81-83-5937Qmdjdbuumylepl aspir&/inj major jt/bursa w/o usNathaniel Rosa PA-C Work Phone: Start: 13-73-2078Gcbbjoktpwwplu aspir&/inj major jt/bursa w/o usNathaniel Rosa PA-C Work Phone: Start: 91-26-2337Zoyno X-ray of bilateral handsMD Sussy Johnson Work Phone: Start: 41-54-0344Eaifzecqpa exam knee complete 4/more viewsNathaniel Rosa PA-C Work Phone: Start: 76-80-6394Ajtbjrgweswqtu aspir&/inj major jt/bursa w/o usNathaniel Rosa PA-C Work Phone: Start: 92-16-5102Oawmnweplp exam knee complete 4/more viewsNathaniel Rosa PA-C Work Phone: Start: 29-58-6293Klsoewwkpobgey aspir&/inj major jt/bursa w/o usNathaniel Rosa PA-C Work Phone: Start: 31-92-8322Mawjvzhqjscyys aspir&/inj major jt/bursa w/o usNathaniel Rosa PA-C Work Phone: Start: 69-25-0707Nqwsjocpjg exam knee complete 4/more viewsNathaniel Rosa PA-C Work Phone: Plan of Treatment DateCare ActivityDetailAuthorStart: 67-21-5091NKF Vaccine (1 - 1-dose 75+ series)RSV Vaccine (1 - 1-dose 75+ series)[facility] 07-02[facility]2025 End: 35-97-0426ftkmiutsvf47/03/2025 9:00 AM EST Evaluation [facility] [address] [place] [id number] Juan Hill, PT [address] [place] [address] Arrived [facility] BaldwintComment on above:ArrivedStart: 50-15-2232Gsovwhyao vaccinationInfluenza Vaccine (Season Ended)[facility]: 02-21-2025 Hemolytic complement CH50 levelSelect [facility]ty [facility] Southtart: 62-69-6877UII antibody measurementSelect Medical Specialty Hospital [facility] Southtart: 17-20-3486XyzrrtprtSelect Medical Specialty Hospital [facility] Southtart: 02-13-2025 End: 43-74-8644qyvcrjramd20/17/2025 10:45 AM EDT OT/PT/Speech Visit [facility] [address] [facility] [place] [address] Selene Buckley, PT [address] [place] [address] Primary osteoarthritis of right shoulder [M19.011][facility] TherapyComment on above:Primary osteoarthritis of right shoulder [M19.011]Start: 01-17-2025 End: 99-31-6264sfisqcoqwk80/21/2025 4:30 PM EDT OT/PT/Speech Visit [facility] [address] [facility] [place] [address] Selene Buclkey, PT [address] [place] [address] Primary osteoarthritis of right shoulder [M19.011][facility] TherapyComment on above:Primary osteoarthritis of right shoulder [M19.011]Start: 01-05-2025 End: 15-78-9067Amdtmfo encounter taowblfqm77/09/2025 11:00 AM EDT Office Visit Orthopa[facility] [address] [place] [address] Garrison Lee PA-C [address] [place] [address] Bilateral shoulder painOrthopaedicsComment on above:Bilateral shoulder painStart: 08-94-5501Huwfp-19 Vaccine ( season)Covid-19 Vaccine ( season)[facility]: 00-64-5448Qqnwt-19 Vaccine ( season)Covid-19 Vaccine ( season)[facility]: 22-11-0934Guqdwukar vaccinationInfluenza Vaccine (#1)[facility]: 60-33-5475OslhnpohpSelect Medical Specialty Hospital [facility] Southtart: 63-73-5591Xyoeamfcsh AssessmentDepression AssessmentL[facility]aster Municipal Hospitaltart: 10-08-8860Lbfefexsx vaccinationL[facility] Municipal Hospitaltart: 15-80-4230SLTLKDPQAJ ASSESSMENTDEPRESSION ASSESSMENTL[facility] Hospitaltart: 94-90-2035Tywvrjvzo vaccinationUc Health Start: 49-87-6864DWGMZYOGRI ASSESSMENTDEPRESSION ASSESSMENTUc Health Start: 78-99-4511JGM Vaccine (1 - 1-dose 60+ series)RSV Vaccine (1 - 1-dose 60+ series)[facility]: 93-72-8837Mvvnzhnbqkxo Vaccine: 50+ (1 of 1 - PCV) Pneumococcal Vaccine: 50+ (1 of 1 - PCV)[facility]: 2010 SHINGRIX VACCINE (1 of 2)SHINGRIX VACCINE (1 of 2)[facility]: 45-64-4679UTFRALGZF (FIT-DNA)COLOGUARD (FIT-DNA)[facility]: 07-36-9957XsrbgonxyhjKACGJUFEESCUqefzayst ClinicStart: 39-25-3539LDAACMNZNF CANCER SCREENINGCOLORECTAL CANCER SCREENINGL[facility] Municipal Hospitaltart: 37-59-5372FX COLONOGRAPHYCT COLONOGRAPHYL[facility] Municipal Hospitaltart: 23-73-1416ROGSLNYD SCREEN DIABETES SCREENCleSelect Medical Specialty Hospital - Cantontart: 44-40-4909Gsdrskcp ScreeningDiabetes ScreeningCleSelect Medical Specialty Hospital - Cantontart: 03-09-3999OBPVL OCCULT BLOODFECAL OCCULT BLOOD [facility]: 83-14-6432Yqbuw panelLipid ScreeningUc Health Start: 45-67-8262UKIGJ SCREENLIPID SCREENLancaster Municipal Hospitaltart: 2005 Screening for malignant neoplasm of colonL[facility] Municipal Hospitaltart: 2005 SIGMOIDOSCOPYSIGMOIDOSCOPYLancaster Municipal Hospitaltart: 80-77-1632DadzueqqgiiFEQGXDXLW [facility]tart: 51-08-0230Lbyotkwew for malignant neoplasm of breast Mammogram ScreeningLancaster Municipal Hospitaltart: 82-93-4320LOW TESTINGHPV TESTING [facility]: 99-35-6123Cbbopzgaa for malignant neoplasm of cervixHPV TestingL[facility]aster Municipal Hospitaltart: 11-36-5079LKT TESTINGPAP TESTINGUc Health Start: 46-15-7946Ufjhuocmw for malignant neoplasm of cervixUc Health Start: 87-85-8593Jsvim microalbumin profileL[facility]aster Municipal Hospitaltart: 1978 Anxiety ScreeningAnxiety ScreeningL[facility] Hospitaltart: 61-16-1802Xqlmgbumjc ScreeningDepression ScreeningL[facility] Municipal Hospitaltart: 11-22-8809POEPQWELA C SCREENINGHEPATITIS C SCREENINGL[facility] Municipal Hospitaltart: 04-44-1804Ftxayemal C screeningHepatitis C ScreeningL[facility] Municipal Hospitaltart: 47-23-3943OXK SCREENINGHIV SCREENINGL[facility] Hospitaltart: 84-07-1576YHI screeningHIV ScreeningL[facility] Municipal Hospitaltart: 13-02-7857Ctulu depression screening assessmentDEPRESSION SCREENING [facility]: 07-40-9302XZEHF-19 VACCINE (1)COVID-19 VACCINE (1) [facility]: 50-80-5591GTDAX-19 VACCINE (#1)COVID-19 VACCINE (#1) Uc HealthChromatin Ab [Units/volume] in Serum or PlasmaMercy Health Springfield Regional Medical CenterComplement C3 [Mass/volume] in Serum or PlasmaMercy Health Springfield Regional Medical CenterComplement C4 [Mass/volume] in Serum or PlasmaMercy Health Springfield Regional Medical CenterComprehensive metabolic 1999 panel - Serum or PlasmaMercy Health Springfield Regional Medical CenterComprehensive metabolic 1999 panel - Serum or Plasma [facility] CenterHistone IgG Ab [Units/volume] in Serum by ImmunoassayMercy Health Springfield Regional Medical CenterMG Breast - bilateral Screening [facility] Medical CenterPatient EducationLow back pain in adults [facility] Work Phone: Smith extractable nuclear Ab [Units/volume] in Serum [facility] Medical CenterXR Hip - left 2 [facility] HospitalXR Lumbar spine [facility] Immunizations Immunization DateImmunizationNotesCare QpcnxhrqRomhmikh27-06-3107hlhmpr vaccine recombinantBenjamin Ball DO Work Phone: [facility]02-11-2021zoster vaccine, liveMarcia Johnson Other [facility]11-09-2020influenza virus vaccine, split virus (incl. purified surface antigen)Sussy Alex Other [place] [employer] Other 813136-73-5313fqdqbtcny, injectable, quadrivalent, preservative freeBenjamin Ball DO Work Phone: [facility]11-09-2020zoster vaccine recombinantBenjamin Ball DO Work Phone: [facility]11-09-2020zoster vaccine, liveMarcia Johnson Other [facility]11-09-2020influenza virus vaccine, unspecified formulationAnitha Ford RT(R)[facility] Payers DatePayer CategoryPayerPolicy [id number] Health InsuranceCIGNA CIGNA PAYER SOLUTIONS PPO [id number] 2015-Present [phone] [address] [place] SAMAY[place] [id number] Health Insurance [id number] [id number] [id number] [id number] [id number]496Mlmmrqb Health [id number] 01-72-2638Xwwenjc Health [id number] Social History DateTypeDetailFacilityTobacco smoking status NHISTobacco smoking consumption unknownL[facility]aster Municipal Hospitaltart: 08-44-8098Iei Assigned At BirthNot on file [facility]: 12-22-2020 End: 60-14-5180Ddlaczhj to SARS-CoV-2 (event)Not sureL[facility]aster Municipal Hospitaltart: 03-03-2023 End: 79-32-7552Vyl [facility]: 03-03-2023 End: 72-02-5295Xkwsibm of Social functionLancaster Municipal Hospitaltart: 51-37-2786Frxwb Depression Screening Qsgosilhnd2Llimhqpjm ClinicStart: 03-96-0600Cbb [facility] At [facility]: 05-15-2024 End: 72-35-2851Suarftw smoking status NHISNever smoked tobacco (finding) [facility]: 20-32-5820Tkpuvwj use and exposure Smokeless tobacco non-userL[facility] Municipal Hospitaltart: 47-54-5455Thejuhbao beverage intakeLifetime non-drinker (finding)[facility] HospitalexFemale (finding)[facility] Clinical Notes 12-01-2021 to 07-02-2025 Note Date & ZofrChtuCbskeppy03-16-6072 History of Present illness Narrative* Juan Hill, [...] Please sign below. Date: documented in this encounterBarnes-Jewish HospitalXmuzydjbhf80-59-2935 NoteHNO ID: [id number] Author: GARRISON LEE PA-C Service: ? Author Type: Physician Sponge Diver Type: Progress Notes Filed: 06/25/2025 10:26 Note Text: PROCEDURE NOTE: Svetlana Carver Medical Record: [id number] Primary osteoarthritis of left knee (primary encounter [...] these instructions. Informed Consent Consent Obtained: Written Hayes Protocol A moment to CARE was completed. [...] and interventions applicable. No implant(s) inserted. Consuelo FengAultman Orrville Hospital10-21-2025 NoteHNO ID: [id number] Author: GARRISON LEE PA-C Service: ? Author Type: Physician Sponge Diver Type: Progress Notes Filed: 06/19/2025 10:13 Note [...] these instructions. Informed Consent Consent Obtained: Written Hayes Protocol A moment to CARE was completed. SIGN IN Personnel directly involved with the procedure wore the appropriate PPE. Special Equipment: Yes Patient/Surrogate (more content not included)...[facility] 05-04-2025 Evaluation note* Diagnosis Onset Date [...] mammogram for breast canceracuteSept2024 11:39amWellness examinationacuteSept2024 11:39am [facility] Work Phone: 1(934) 317-500509-05-2025 Evaluation note* Diagnosis Onset Date Resolution Status [...] back painacuteOctober 2024 8:47amLumbar spondylosisacuteOctober 2024 8:47am [facility] Work Phone: 1(747) 326-201406-17-2025 History of Present illness Narrative* Selene Buckley, PT - 02/13/2025 11:14 AM EDT Program_ID:[id number] Access Code: [email or web address] URL: [email or web address] Date: 02-13-2025 Prepared By: Selene Buckley Program [...] Episode of Care: established 01/05/25 Updated 02/13/25 Baxter in home exercise program. MET Patient will [...] Selene Buckley PT, DPT documented in this encounterUc Health06-17-2025 NoteHNO ID: [id number] Author: SELENE BUCKLEY PT Service: ? Author [...] Therapeutic exercise, Neuromuscular re-education, Manual therapy, and Self-snf management. Patient has had improvements in cervical and right shoulder ROM, strength and flexibility, ability to perform functional activities, and decreased pain since initiating physical therapy services. Goals for Episode of Care: established 01/05/25 Updated 02/13/25 Baxter in home exercise program. MET Patient will [...] 4+/5 L Shoulder Flexion: (more content not included)...[facility] 01-24-2025 History of Present illness Narrative* Selene Buckley, PT - 01/24/2025 5:08 PM EDT Program_ID:[id number] Access Code: [email or web address] URL: [email or web address] Date: 01-24-2025 Prepared By: Selene Buckley Program [...] really weak, they shake whendoing the exercises. [place] her neck is extremely noisy, whenever she [...] Selene Buckley PT, DPT documented in this encounterUc Health05-28-2025 NoteHNO ID: [id number] Author: SELENE BUCKLEY PT Service: ? Author [...] weak, they shake when doing the exercises. [place] her neck is extremely noisy, whenever she [...] Stop Time : 1711 Selene Buckley PT, [facility]05-09-2025 History of Present illness Narrative* Selene Buckley PT - 01/05/2025 1:11 PM EDT Program_ID:[id number] Access Code: [email or web address] URL: [email or web address] Date: 01-05-2025 Prepared By: Selene Buckley Program [...] Goals for Episode of Care: established 01/05/25 Baxter in home exercise program. Patient will decrease [...] Planned: 4 Planned Treatment Interventions: Therapeutic exercise (63667), Neuromuscular re- education (36484), Manual therapy (47423), Therapeutic activities (96757), Self- snf management (49045), Gait Training (49140), Patient/Family/Caregiver Education PLAN FOR NEXT VISIT: Review [...] fine up until recently. 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 Patient education as noted. Self-[facility] Management: 1: Patient educated on impairments noted [...] Selene Buckley PT, DPT documented in this encounterUc Health05-09-2025 NoteHNO ID: [id number] Author: SELENE BUCKLEY PT Service: ? Author [...] Goals for Episode of Care: established 01/05/25 [place] in home exercise program. Patient will decrease [...] Planned: 4 Planned Treatment Interventions: Therapeutic exercise (18622), Neuromuscular re-education (98214), Manual therapy (73909), Therapeutic activities (40798), Self-snf management (77713), Gait Training (00663), Patient/Family/Caregiver Education PLAN FOR NEXT VISIT: Review [...] fine up until recently. 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 [facility]05-09-2025 NoteHNO ID: [id number] Author: GARRISON LEE PA-C Service: ? Author Type: Physician Sponge Diver Type: Progress Notes Filed: 01/05/2025 11:54 Note [...] She recently completed a half marathon in [facility], without any issues related to her shoulder [...] these instructions. Informed Consent Consent Obtained: Written Hayes Protocol A moment to CARE was completed. SIGN IN Personnel directly involved with the procedure wore the appropriate PPE. Special Equipment: Yes Patient/Surrogate Stated/Verified: Patient name, Date of , Relevant allergies and Intended proce (more content not included)...[facility]05-09-2025 History of Present illness Narrative* Garrison Lee PA-C - 01/05/2025 11:35 AM EDTAssociated Order(s): Large Joint Arthro/Inj: R subacromial bursa Post-Procedure Diagnose(s): Primary osteoarthritis of right shoulder; Tendinopathy of right rotatorcuff Images from the original note were not included. This document has been created with the use of voice recognition technology, including [employer] technology. It may contain inaccuracies: misspellings, [...] She recently completed a half marathon in [facility], without any issues related to her shoulder [...] these instructions. Informed Consent Consent Obtained: Written Hayes Protocol A moment to CARE was completed. [...] PT Garrison Lee PA-C documented in this encounterUc Health05-09-2025 NoteHNO ID: [id number] Author: ANITHA FORD RT(R) Service: ? Author [...] PATIENT PRESENTS WITH AN IMPLANTABLE OR ATTACHED STOCK CUTTER: No RADIOLOGY DEPARTMENT: General X-ray: Exam(s) Completed: Upper Extremity X-Ray(s): Shoulder, AP / TRUE AP / AXILLARY / SUPRA OUTLET bilateral PERIPHERAL IV DATA: Not applicable SIGNED BY: RT Angela(R) January 05, 2025 10:53 [facility]05-09-2025 History of Present illness Narrative* Anitha Ford [...] PATIENT PRESENTS WITH AN IMPLANTABLE OR ATTACHED STOCK CUTTER: No RADIOLOGY DEPARTMENT: General X-ray: Exam(s) Completed: Upper Extremity X- Ray(s): Shoulder, AP / TRUE AP / AXILLARY / SUPRA OUTLET bilateral PERIPHERAL IV DATA: Not applicable SIGNED BY: RT Angela(R) January 05, 2025 10:53 AM documented in this encounterUc Health04-18-2025 NoteHNO ID: [id number] Author: GARRISON LEE PA-C Service: ? Author Type: Physician Sponge Diver Type: Progress Notes Filed: 12/15/2024 10:38 Note [...] prepare for an upcoming half marathon in [facility] on the or , with travel scheduled [...] these instructions. Informed Consent Consent Obtained: Written Hayes Protocol A moment to CARE was completed. [...] pain significantly affects activiti (more content not included)...[facility]04-18-2025 History of Present illness Narrative* Garrison Lee PA-C - 12/15/2024 10:36 AM EDTAssociated Order(s): Large Joint Arthro/Inj: L knee joint Post-Procedure Diagnose(s): Primary osteoarthritis of left knee Images from the original note were not included. This document has been created with the use of voice recognition technology, including Quant the News Scribe technology. It may contain inaccuracies: misspellings, [...] prepare for an upcoming half marathon in [facility] on the or , with travel scheduled [...] these instructions. Informed Consent Consent Obtained: Written Hayes Protocol A moment to CARE was completed. [...] needed. Garrison Lee PA-C documented in this encounterUc Health11-26-2024 NoteHNO ID: [id number] Author: GARRISON LEE PA-C Service: ? Author Type: Physician Sponge Diver Type: Progress Notes Filed: 07/25/2024 14:21 Note [...] knee joints Informed Consent Consent Obtained: Written Hayes Protocol A moment to CARE was completed. [...] is ready to s (more content not included)...[facility] 07-25-2024 History of Present illness Narrative* [...] knee joints Informed Consent Consent Obtained: Written Hayes Protocol A moment to CARE was completed. [...] yet Garrison Lee PA-C documented in this encounterUc Health03-01-2024 History of Present illness Narrative* Garrison Lee [...] has a race coming up soon in [facility] where she will be power [...] needed Garrison Lee PA-C documented in this encounterUc Health03-01-2024 History of Present illness Narrative* Anitha Ford, [...] PATIENT PRESENTS WITH AN IMPLANTABLE OR ATTACHED STOCK CUTTER: No RADIOLOGY DEPARTMENT: General X-ray: Exam(s) Completed: Lower Extremity X- Ray(s): Knee, AP / Lat / Tunne / Merchant Left and Wt. Bearing PERIPHERAL IV DATA: Not applicable SIGNED BY: RT Angela(R) October 29, 2023 11:34 AM documented in this encounterUc Health11-28-2023 Evaluation note* Encounter Date Diagnosis Assessment Notes [...] pain (ICD-10 - M54.2)Order for PT handwritten [facility] Other 07-05-2023 History of Present illness Narrative* [...] remains very active and does long distance [place] races. These activities seem to flareup the [...] knee joint Informed Consent Consent Obtained: Written Hayes Protocol A moment to CARE was completed. [...] dictate. Garrison Lee PA-C documented in this encounterUc Health10-11-2022 History of Present illness Narrative* Garrison Lee [...] knee joint Informed Consent Consent Obtained: Written Hayes Protocol A moment to CARE was completed. [...] needed Garrison Lee PA-C documented in this encounterUc Health10-11-2022 History of Present illness Narrative* Kriss Cornelius RT(R) - 06/09/2022 11:20 AM EDT pain documented in this encounterUc Health10-04-2022 NotePROCEDURE: XR ANKLE RT MIN 3 VIEWS, [...] Electronically authenticated by: HOMERO DONALDSON Date: 2022-06-02 12:[facility]10-04-2022 NotePROCEDURE: XR ANKLE RT MIN 3 [...] Date: 2022-06-02 12[id number] History of Present illness Narrative* Garrison Lee [...] knee joint Informed Consent Consent Obtained: Written Hayes Protocol A moment to CARE was completed. [...] needed. Garrison Lee PA-C [facility]* Diagnosis Primary osteoarthritis of left knee- Primary Primary localized osteoarthrosis, lower leg documented in this encounter [facility] note* Diagnosis Primary osteoarthritis of left knee- Primary Primary localized osteoarthrosis, lower leg documented in this encounter [facility] note* Diagnosis Primary osteoarthritis of left knee- Primary Primary localized osteoarthrosis, lower leg documented in this encounter [facility] noteNo InformationNomercy [facility] [employer] Other Evaluation note* Diagnosis Primary osteoarthritis of left knee- Primary Primary localized osteoarthrosis, lower leg It band syndrome, left documented in this encounter [facility] noteNo assessment information [facility] Work Phone: Evaluation note* Diagnosis Primary osteoarthritis of left knee Primary localized osteoarthrosis, lower leg documented in this encounter [facility] note* Diagnosis Onset Date Resolution Status GERD (gastroesophageal reflux disease) acuteHypercholesterolemiaacuteOsteoporosisacuteScreening for colon canceracute Screening mammogram for breast canceracuteWellness examinationSt. Anthony's Hospital Work Phone: Evaluation note* Diagnosis Primary osteoarthritis of left knee Primary localized osteoarthrosis, lower leg documented in this encounter [facility] note* Diagnosis Primary osteoarthritis of left knee Primary localized osteoarthrosis, lower leg [facility] Diagnosis Primary osteoarthritis of left knee- Primary Primary localized osteoarthrosis, lower leg Primary osteoarthritis of right knee Primary localized osteoarthrosis, lower leg documented [facility] this encounter [facility]* Diagnosis Primary osteoarthritis of left knee- Primary Primary localized osteoarthrosis, lower leg Primary osteoarthritis of right knee Primary localized osteoarthrosis, lower leg documented in this encounter [facility]* Diagnosis Primary osteoarthritis of right shoulder- Primary Primary localized osteoarthrosis, shoulder region Tendinopathy of right rotator cuff Cervicalgia Impingement syndrome of left shoulder Other affections of shoulder region, not elsewhere classified Pain of both shoulder joints documented in this encounter [facility]* Diagnosis Pain in joint of right shoulder- Primary Pain in joint, shoulder region Primary osteoarthritis of right shoulder Primary localized osteoarthrosis, shoulder region Tendinopathy of right rotator cuff Cervicalgia Impingement syndrome of left shoulder Other affections of shoulder region, not elsewhere classified documented [facility] this encounter [facility]* Diagnosis Pain of both shoulder joints documented [facility] this [facility]* Diagnosis Pain in joint of right shoulder- Primary Pain in joint, shoulder region documented [facility] this encounter [facility]* Diagnosis Pain in joint of right shoulder- Primary Pain in joint, shoulder region documented in this encounter [facility]* Diagnosis Chronic left-sided low back pain without sciatica- Primary Primary osteoarthritis of left hip documented in this encounter [facility] HealthcareHistory general Narrative - Reported* Type Description Date Medical History GERD without esophagitis Medical HistoryOnychomycosisMedical HistoryLow back pain with radiationMedical HistoryMuscular painMedical HistoryHyperlipidemia, unspecifiedMedical History OsteoporosisMedical HistoryPlantar FasciitisSurgical HistoryRhinoplastySurgical HistoryDEXA 10/16 hip - 2.8Surgical HistoryTonsillectomyHospitalization History SEE SURGICAL HX [facility] Other Reason for referral (narrative)* Diagnostic Procedure Only (Routine) - ClosedSpecialtyDiagnoses / ProceduresReferred By Contact Referred To ContactXR IMAGING Diagnoses Primary osteoarthritis of left knee Procedures XR KNEE GENERAL 4V AP BOTH/PA BOTH/LAT/MERC LEFT RADIOLOGIC EXAM KNEE COMPLETE 4/MORE VIEWS Garrison Lee, KRISTIANC [address] [place] [address] Xr Imaging Referral IDStatusReasonStart DateExpiration DateVisits RequestedVisits [id number] Auto-Generated Referral / [facility] for referral (narrative)* Diagnostic Procedure Only (Routine) - ClosedSpecialtyDiagnoses / ProceduresReferred By ContactReferred To ContactXR IMAGING Diagnoses Primary osteoarthritis of left knee Procedures XR KNEE GENERAL 4V AP BOTH/PA BOTH/LAT/MERC LEFT RADIOLOGIC EXAM KNEE COMPLETE 4/MORE VIEWS Garrison Lee PA-C [address] [place] [address] [place] [address] Referral IDStatusReasonStart DateExpiration DateVisits RequestedVisits [id number] Auto-Generated Referral / [facility] for referral (narrative)* Diagnostic Procedure Only (Routine) - ClosedSpecialtyDiagnoses / ProceduresReferred By ContactReferred To ContactXR IMAGING Diagnoses Primary osteoarthritis of left knee Procedures XR KNEE GENERAL 4V AP BOTH/PA BOTH/LAT/MERC LEFT RADIOLOGIC EXAM KNEE COMPLETE 4/MORE VIEWS Garrison Lee PA-C [address] [place] [address] [place] [address] Referral IDStatusReasonStart DateExpiration DateVisits RequestedVisits [id number] Auto-Generated Referral / [facility] for referral (narrative)* Diagnostic Procedure Only (Routine) - ClosedSpecialtyDiagnoses / ProceduresReferred By ContactReferred To ContactXR IMAGING Diagnoses Primary osteoarthritis of left knee Procedures XR KNEE GENERAL 4V AP BOTH/PA BOTH/LAT/MERC LEFT RADIOLOGIC EXAM KNEE COMPLETE 4/MORE VIEWS Garrison Lee PA-C [address] [place] [address] [place] [address] Referral IDStatusReasonStart DateExpiration DateVisits RequestedVisits [id number] Auto-Generated Referral / [facility] for referral (narrative)No reason for referral information availableAdena [facility] Work Phone: [facility] Narrative* Diagnostic Procedure Only (Routine) - ClosedSpecialtyDiagnoses / ProceduresReferred By ContactReferred To ContactXR IMAGING Diagnoses Primary osteoarthritis of left knee Procedures XR KNEE GENERAL 4V AP BOTH/PA BOTH/LAT/MERC LEFT RADIOLOGIC EXAM KNEE COMPLETE 4/MORE VIEWS Garrison Lee PA-C [address] [place] [address] [place] [address] Referral IDStatusReasonStart DateExpiration DateVisits RequestedVisits [id number] Auto-Generated Referral / [facility] for visit Narrative* Diagnostic Procedure Only (Routine) - ClosedSpecialtyDiagnoses / ProceduresReferred By ContactReferred To Contact XR IMAGING Diagnoses Pain of both shoulder joints Procedures XR SHOULDER ORTHO 4V AP/TRUE AP/LAT/OUTLET LEFT RADEX SHOULDER COMPLETE MINIMUM 2 VIEWS Garrison Lee PA-C [address] [place] [address] Phone: tel: fax: [place] [address] Referral IDStatusReasonStart DateExpiration DateVisits RequestedVisits [id number] Auto-Generated Referral / [facility] for visit Narrative* Rehabilitation - Outpatient (Routine) - AuthorizedSpecialtyDiagnoses / ProceduresReferred By Contact Referred To ContactPhysical Therapy Diagnoses Pain in left hip Spondylosis without myelopathy or radiculopathy, lumbar region Low back pain, unspecified Other chronic pain Procedures IA PHYSICAL THERAPY EVALUATION HIGH COMPLEX 45 MINS Piyush Bui, DO [address] [place] [address] Phone: tel: Juan Hill, PT [address] [place] [address] Phone: tel: fax: Referral IDStatusReasonStart DateExpiration DateVisits RequestedVisits [id number] [facility] Medications Administered Section Medication OrderMAR [...] 2025 9:23am GERD (gastroesophageal reflux disease) [facility] 2024 11:39am Hypercholesterolemia May 15 11:39am [...] 2025 9:23am GERD (gastroesophageal reflux disease) [facility] 2024 11:39am Hypercholesterolemia May 15 11:39am [...] or prosecute any alcohol or drug abuse patient.[facility]c HealthIn the event this information is protected by the Federal Confidentiality of Alcohol and Drug Abuse Patient Records regulations: The Federal rules restrict any use of the information to criminally investigate or prosecute any alcohol or drug abuse patient.[facility]c HealthIn the event this information is protected by the Federal Confidentiality of Alcohol and Drug Abuse Patient Records regulations: The Federal rules restrict any use of the information to criminally investigate or prosecute any alcohol or drug abuse patient.[facility]c HealthIn the event this information is protected by the Federal Confidentiality of Alcohol and Drug Abuse Patient Records regulations: The Federal rules restrict any use of the information to criminally investigate or prosecute any alcohol or drug abuse patient.[facility]c HealthIn the event this information is protected by the Federal Confidentiality of Alcohol and Drug Abuse Patient Records regulations: The Federal rules restrict any use of the information to criminally investigate or prosecute any alcohol or drug abuse patient.[facility]c HealthIn the event this information is protected by the Federal Confidentiality of Alcohol and Drug Abuse Patient Records regulations: The Federal rules restrict any use of the information to criminally investigate or prosecute any alcohol or drug abuse patient.[facility]c HealthIn the event this information is protected by the Federal Confidentiality of Alcohol and Drug Abuse Patient Records regulations: The Federal rules restrict any use of the information to criminally investigate or prosecute any alcohol or drug abuse patient.[facility]c HealthIn the event this information is protected by the Federal Confidentiality of Alcohol and Drug Abuse Patient Records regulations: The Federal rules restrict any use of the information to criminally investigate or prosecute any alcohol or drug abuse patient.[facility] HealthIn the event this information is protected by the Federal Confidentiality of Alcohol and Drug Abuse Patient Records regulations: The Federal rules restrict any use of the information to criminally investigate or prosecute any alcohol or drug abuse patient.[facility]c HealthIn the event this information is protected by the Federal Confidentiality of Alcohol and Drug Abuse Patient Records regulations: The Federal rules restrict any use of the information to criminally investigate or prosecute any alcohol or drug abuse patient.[facility]c HealthIn the event this information is protected by the Federal Confidentiality of Alcohol and Drug Abuse Patient Records regulations: The Federal rules restrict any use of the information to criminally investigate or prosecute any alcohol or drug abuse patient.[facility]c HealthIn the event this information is protected by the Federal Confidentiality of Alcohol and Drug Abuse Patient Records regulations: The Federal rules restrict any use of the information to criminally investigate or prosecute any alcohol or drug abuse patient.[facility]c HealthIn the event this information is protected by the Federal Confidentiality of Alcohol and Drug Abuse Patient Records regulations: The Federal rules restrict any use of the information to criminally investigate or prosecute any alcohol or drug abuse patient.Uc HealthIn the event this information is protected by the Federal Confidentiality of Alcohol and Drug Abuse Patient Records regulations: The Federal rules restrict any use of the information to criminally investigate or prosecute any alcohol or drug abuse patient.[facility]c HealthIn the event this information is protected by the Federal Confidentiality of Alcohol and Drug Abuse Patient Records regulations: The Federal rules restrict any use of the information to criminally investigate or prosecute any alcohol or drug abuse patient.[facility]c HealthIn the event this information is protected by the Federal Confidentiality of Alcohol and Drug Abuse Patient Records regulations: The Federal rules restrict any use of the information to criminally investigate or prosecute any alcohol or drug abuse patient.[facility] Reason for Visit (unrecogniz ed section and content) ReasonCommentsPT DischargeSpecialtyDiagnoses / ProceduresReferred By Contact Referred To ContactREHAB AND SPORTS THERAPY INS Diagnoses Primary osteoarthritis of right shoulder Tendinopathy of right rotator cuff Cervicalgia Impingement syndrome of left shoulder Procedures CONSULT TO PHYSICAL THERAPY PHYSICAL THERAPY EVALUATION HIGH COMPLEX 45 MINS Garrison Lee PA-C [address] [address] Phone: tel: fax: [facility] [address] [place] [phone] Referral IDStatusReasonStart DateExpiration DateVisits RequestedVisits [id number] Auto-Generated Referral [id number] PatientInjectionsSwellingReason CommentsEstablished PatientReasonCommentsInjectionsReasonCommentsRadiology XR ReasonCommentsFollow UpReasonCommentsRadiology XRSpecialtyDiagnoses / Procedures Referred By ContactReferred To ContactXR IMAGING Diagnoses Primary osteoarthritis of left knee Procedures XR KNEE GENERAL 4V AP BOTH/PA BOTH/LAT/MERC LEFT RADIOLOGIC EXAM KNEE COMPLETE 4/MORE VIEWS Garrison Lee PA-C [address] [place] [address] [place] [address] Referral IDStatusReasonStart DateExpiration DateVisits RequestedVisits [id number] Auto-Generated Referral [id number] PatientFollow UpKnee PainReason CommentsFollow UpReasonCommentsEstablished PatientReasonCommentsPT EvalPatient EducationSpecialtyDiagnoses / ProceduresReferred By ContactReferred To Contact [facility] Diagnoses Primary osteoarthritis of right shoulder Tendinopathy of right rotator cuff Cervicalgia Impingement syndrome of left shoulder Procedures CONSULT TO PHYSICAL THERAPY PHYSICAL THERAPY EVALUATION HIGH COMPLEX 45 MINS Garrison Lee PA-C [address] [place] [address] Phone: tel: fax: [facility] [address] [place] [address] Referral IDStatusReasonStart DateExpiration DateVisits RequestedVisits [id number] Auto-Generated Referral [id number] Therapy INFORMATION SOURCE (unrecogn ized section and content) DATE CREATED AUTHOR 01/09/2023 [facility] DATE CREATED AUTHOR AUTHOR'S ORGANIZ ATION 03/11/2025 [facility] DATE CREATED AUTHOR AUTHOR'S ORGANIZ ATION 06/26/2025 [facility] Care Teams (unrecognized sec tion and [...] BE BASED ON THE PRIMARY CLINICAL RECORDS. [facility] [employer] [facility] provides no warranty or guarantee of the accuracy or completeness of information in this document.
== END 2025-07-30 13:53 | disposition home or self-care (01) ==
LOC: MAMMO 13:52
PROVIDERS: PCP Internal Medicine; Visit Provider Internal Medicine
DX: Z12.31 Encounter for screening mammogram for malignant neoplasm of breast (principal); M81.0 Age-related osteoporosis without current pathological fracture; M85.88 Other specified disorders of bone density and structure, other site; Z80.3 Family history of malignant neoplasm of breast; Z80.52 Family history of malignant neoplasm of bladder; Z80.8 Family history of malignant neoplasm of other organs or systems
CPT/HCPCS: 77063; 77067; 77080

== ENCOUNTER 2025-08-18 09:37 | Emergency (ER) | payer OTHER, SELFPAY ==
[2025-08-18 09:40] VITALS: BP 150/88; PULSE 69; TEMP 36.5; O2SAT 100; BMI 24.3
--- NOTE | 2025-08-18 09:56 | ED.GENADUL1 ---
HPI HPI - General Adult General Chief complaint: Eye Problems Stated complaint: R EYE PAIN Time Seen by Provider: 08/18/25 09:45 Source: patient Mode of arrival: walk-in History of Present Illness HPI narrative: 65-year-old female presented to the emergency department for irritation to her right eye. She woke up this morning. She noticed it was red and irritated. When she went to bed last night she had no symptoms. She does not wear contacts but does wear glasses. No symptoms in the left eye. No history of foreign body or trauma to her eye Related Data Previous Rx's ?Medication ?Instructions ?Recorded sulfacetamide sodium 10 % eye drops 2 drp ophthalmic (eye) Q4H #15 mL 08/18/25 Allergies Allergy/AdvReac Type Severity Reaction Status Date / Time No Known Drug Allergies Allergy Verified 08/18/25 09:40 Review of Systems ROS Narrative A ten point review of systems is negative except as noted above. PFSH PFSH Social History Little interest or pleasure in doing things: not at all Feeling down, depressed, or hopeless: not at all Exam Narrative Exam Narrative: Nurses note and vital signs reviewed General:The patient appears in no apparent distress. Patient is resting comfortably on cart. Skin:Warm, dry, no pallor noted.There is no rash noted. Head:Normocephalic, atraumatic Eye: Left conjunctiva is normal. The right conjunctiva is injected. No foreign body is found with lid eversion and fluorescein staining and Cornelius lamp examination showed no corneal abrasions. Ears, Nose, Mouth, and Throat: oral mucosa is moist. Nares patent. Cardiovascular:Regular Rate and Rhythm Respiratory:Patient is in no distress, no accessory muscle use Back:non-tender GI: Soft and nontender Musculoskeletal: No joint swelling Neurological:A&O, normal speech Psychiatric:Cooperative Constitutional Vital Signs, click to edit/add: Last Vital Signs Temp 97.7 F 08/18/25 09:40 Pulse 69 08/18/25 09:40 Resp 20 08/18/25 09:40 BP 150/88 H 08/18/25 09:40 Pulse Ox 100 08/18/25 09:40 Course Vital Signs Vital signs: Vital Signs Temperature 97.7 F 08/18/25 09:40 Pulse Rate 69 08/18/25 09:40 Respiratory Rate 20 08/18/25 09:40 Blood Pressure 150/88 H 08/18/25 09:40 Pulse Oximetry 100 08/18/25 09:40 Temperature 97.7 F 08/18/25 09:40 Pulse Rate 69 08/18/25 09:40 Respiratory Rate 20 08/18/25 09:40 Blood Pressure 150/88 H 08/18/25 09:40 Pulse Oximetry 100 08/18/25 09:40 Medical Decision Making MDM Narrative Medical decision making narrative: No evidence of foreign body or corneal abrasion. She is prescribed Bleph-10 and will follow-up with her eye doctor if there is no improvement. Treatment diagnosis and follow-up were discussed with the patient. Discharge Plan Discharge Chief Complaint: Eye Problems Clinical Impression: Bacterial conjunctivitis Patient Disposition: Home, Self-Care Time of Disposition Decision: 09:55 Condition: Good Mode of Transportation: Private Vehicle Prescriptions / Home Meds: New sulfacetamide sodium 10 % drops 2 drp ophthalmic (eye) Q4H Qty: 15 0RF Print Language: Tamazight Instructions: Conjunctivitis (ED) Referrals: Piyush Bui DO [Primary Care Provider, Internal Medicine] - 1 week
[2025-08-18] MEDS: FLUORESCEIN SODIUM 1 MG STRIP OP (09:58)
== END 2025-08-18 10:07 | disposition home or self-care (01) ==
PROVIDERS: Emergency Provider Emergency Medicine; PCP Internal Medicine
DX: H10.89 Other conjunctivitis (principal)
CPT/HCPCS: 99283